=== PATIENT | male | born 1945 | race Caucasian/White ===

== ENCOUNTER 2022-02-19 15:00 | Inpatient (IN) | payer MEDICARE, OTHER, SELFPAY ==
[2022-02-19 15:26] VITALS: BMI 26.5
[2022-02-19 16:30] VITALS: BP 116/65; PULSE 93; RESP 16; TEMP 36.5; O2SAT 94
[2022-02-19 17:10] LABS: Bedside Glucose 122 mg/dL (74-106)
[2022-02-19 19:26] VITALS: BP 116/65; PULSE 93; RESP 16; TEMP 36.3; O2SAT 94
[2022-02-19 21:00] VITALS: PULSE 93; RESP 16; O2SAT 94; BMI 26.5
--- NOTE | 2022-02-19 21:09 | HP.PCM_ITS ---
[facility] - General General Date of Admission: 02/19/22 Date of Service: 02/19/22 Chief Complaint: Here for [address] [facility] Narrative 02/07/2022 MIRI REES, is a 76 Male admitted to Neuro ICU at [facility] for left MCA stroke. Transferred from [facility] with findings consistent with left MCA stroke. Patient has history of atrial fibrillation on Eliquis, but Eliquis was held for elective left shoulder replacement surgery. Postoperatively, patient developed right upper ad lower extremity weakness, facial droop, aphasia. CTA showed left cervical ICA occlusion with distal reconstitution, then re- occlusion at M2. Transferred to [facility] to consider mechanical thrombectomy. TNK (thrombolytic) given. Patient diaphoretic with ST elevation inferiorly on EKG. NIHSS 18, atrial flutter, EKG suggestive of late ID. Patient underwent thrombectomy, left ICA stent. Blood pressure controlled, Atorvastatin 80mg started, PT/OT/ST for left MCA stroke. Aspirin held due to TNK administration. 02/18/2022 No overnight issues. Patient on Plavix for left ICA stent, Patient on Eliquis for atrial fibrillation. 02/19/2022 Admit to for 3 hours daily PT/OT/ST for left MCA stroke. [facility] Medical History (Updated 02/19/22 @ 21:[address] Lucien Gramajo MD) Afib Cataract Diabetes History of skin cancer Hyperlipidemia Hypertension Stroke Home Medications acetaminophen 325 mg tablet (Tylenol) 650 mg PO Q4H PRN Pain 02/19/22 [History Last Taken Unknown] apixaban 5 mg tablet (Eliquis) 5 mg PO BID Check with primary doctor 02/19/22 [History Last Taken Unknown] atorvastatin 80 mg tablet 80 mg PO QHS cholesterol 02/19/22 [History Last Taken Unknown] clopidogrel 75 mg tablet (Plavix) 75 mg PO DAILY Check with primary doctor 02/19/22 [History Last Taken Unknown] metoprolol tartrate 50 mg tablet 50 mg PO Q12H BP 02/19/22 [History Last Taken Unknown] potassium chloride 25 mEq oral packet 40 meq PO DAILY Check with primary doctor 02/19/22 [History Last Taken Unknown] tamsulosin 0.4 mg capsule (Flomax) 0.4 mg PO DAILY retention 02/19/22 [History Last Taken 02/19/22 08:30] vit A 7,160 unit-vit C 113 mg-vit E 100 qisg-wrlh-mzcqyi tablet 1 tab PO DAILY Check with primary doctor 02/19/22 [History Last Taken Unknown] Allergy/AdvReac Type Severity Reaction Status Date / Time No Known Allergies Allergy Verified 02/19/22 15:43 Family History unable to obtain Surgical History (Updated 02/19/22 @ 21:[address] Lucien Gramajo MD) History of cataract surgery History of left shoulder replacement Social History (Updated 02/19/22 @ 21:[address] Lucien Gramajo MD) household members: none Smoking Status: Former smoker alcohol intake: current alcohol intake frequency: holidays/special occasions only substance use type: does not use ROS Constitutional Constitutional: Reports weakness; Denies chills, fever(s) or weight gain ENT HEENT: Denies headache(s), nasal congestion or nasal discharge Cardiovascular Cardiovascular: Denies chest pain or palpitations Respiratory/Chest Respiratory/Chest: Denies cough, excessive phlegm production or shortness of breath with exertion Gastrointestinal Gastrointestinal: Denies abdominal pain, nausea or vomiting Genitourinary Genitourinary: Denies dysuria Musculoskeletal Musculoskeletal: Denies joint pain or joint swelling Integumentary Integumentary: Denies rash or wounds Neurologic Neurologic: Reports weakness; Denies focal weakness, numbness or tingling Psychiatric Psychiatric: Denies anxiety, auditory hallucinations, depression, homicidal ideation or suicidal ideation Vital Signs Vital Signs Vital Signs: 02/19/22 16:30 02/19/22 19:26 Temperature 97.7 F L 97.4 F L Temperature Source Temporal Oral Pulse Rate 93 93 Respiratory Rate 16 16 Blood Pressure 116/65 116/65 Blood Pressure Mean 82 82 Blood Pressure Source Monitor Monitor Blood Pressure Position Semi-Fowlers Semi-Fowlers Blood Pressure Location Right Arm Right Arm Pulse Ox 94 94 Oxygen Delivery Method Room Air Room Air Weight Weight: 83.8 kg Body Mass Index (BMI) 26.5 Indicators for Scoring Admitted with or Primary Diagnosis of CVA/Stroke: Yes Hx of CVA/Stroke: Yes Modified [place] Score MRS Score at time of Evaluation: 4-Moderate/severe disability NIHSS NIHSS 1a. Level of Consciousness: Alert; keenly responsive 1b. LOC Questions: Answers neither question correctly. 1c. LOC Commands: Performs both tasks correctly. 2. Best Gaze: Normal 3. Visual: No visual loss 4. Facial Palsy: Partial paralysis (total or near-total paralysis of lower face) 5a. Left Arm: No effort against gravity; arm falls 5b. Right Arm: No movement 6a. Left Leg: No drift; leg holds 30-degree position for full 5 seconds 6b. Right Leg: No movement 7. Limb Ataxia: Absent 8. Sensory: Ejek-md-[id number] sensory loss; 9. Best Language: Vxxz-ks-afyinljj aphasia; 10. Dysarthria: Wjph-dm-klaxvtdg dysarthria; 11. Extinction and Inattention: No abnormality Total: 18 Stroke Questions Stroke Team Activated: Yes a.Reviewed Inclusion/Exclusion criteria: Yes IV TPA Administered: Yes No contraindications for IV Alteplase (t-PA) administration.: Yes Risks, Benefits, Alternatives Discussed: Yes Not given: Patient refusal: No Physical Exam Const alert General Appearance: cooperative HEENT normocephalic Eyes PERRL and EOMs intact bilaterally Neck supple, no JVD and no carotid bruits Resp normal respiratory effort, normal air movement and clear to auscultation bilaterally Cardio regular rate and regular rhythm GI normal to inspection, nondistended, normoactive bowel sounds, non-tender and non-distended Extremity normal capillary refill General Extremity: Negative for edema Skin no rashes or lesions noted Skin Narrative: Left anterior shoulder incision dressed with Mepilex. General Skin Exam: no breakdown Neuro Neuro Narrative: Dense right hemiplegia, left upper extremity weakness. Psych affect normal Appearance: appropriate Results Lab / Micro Data Labs: Laboratory Results - last 24 hr 02/19/22 16:34: POC Glucose 122 H Assessment & Plan Assessment/Plan (1) Debility: (2) Stenosis of left internal carotid artery: (3) Acute ischemic left MCA stroke: (4) Right hemiplegia: (5) Atrial fibrillation: (6) History of left shoulder replacement: (7) Hypertension: (8) Hyperlipidemia: (9) History of left common carotid artery stent placement: PLAN: Plan 76 year old male with below past medical history hospitalized for left shoulder replacement, suffered left MCA stroke, status post thrombolytic (TNK), thrombectomy, left ICA stent, admitted to [facility] for 3 hours daily rehabilitation, strengthening, prior to disposition determination. * Debility - PT/OT. * Dysarthria - ST. * Pain - Tylenol 650mg q4h prn pain (1-10). * Bowel - senna/colace 2 tablets bid, Dulcolax 10mg pr x 1 prn, MOM 30ml po x 1 prn. * Atrial fibrillation - Metoprolol 50mg q12, Eliquis 5mg bid. * Hyperlipidemia - Atorvastatin 80mg qhs. * Stroke/left carotid stenosis s/p stent - Plavix 75mg daily. * Diabetes Mellitus II - Lispro sliding scale insulin. * BPH - Tamsulosin 0.4mg daily.
[2022-02-19] MEDS: APIXABAN 5 MG TABLET PO (21:25)
[2022-02-19] MEDS: Senna/Docusate Sodium 1 Tablet 2 TABLET PO (21:25)
[2022-02-19] MEDS: Atorvastatin Calcium 80 MG Tablet PO (21:25)
[2022-02-19 21:26] VITALS: BP 116/65; PULSE 93
[2022-02-19] MEDS: Metoprolol Tartrate 50 MG Tablet PO (21:26)
[2022-02-19 22:25] LABS: Bedside Glucose 102 mg/dL (74-106)
[2022-02-20 05:42] LABS: Absolute Lymphocyte Count 0.95 X10^3/uL (0.83-4.51); Absolute Neutrophil Count 5.6 X10^3/uL (2.0-7.7); Basophil# 0.03 X10^3/uL; Basophil% 0.4 % (0-1); Eosinophil# 0.23 X10^3/uL; Eosinophils% 3.1 % (0-5); Hematocrit 29.5 % (40-54); Hemoglobin 9.3 g/dL (13.0-16.5); Lymphocyte # 0.95 X10^3/ul (0.83-4.51); Lymphocyte % 12.8 % (19-41); Mean Corp Hgb Conc 31.5 g/dL (32-36); Mean Corpuscular Volume 95.2 fL (80-94); Mean Platelet Vol. 10.1 fl (6.2-12.0); Monocyte# 0.53 X10^3/uL; Monocyte% 7.1 % (0-10); NRBC Flagged by Analyzer 0 % (0-5); Neutrophil # 5.64 X10^3/uL (2.7-7.7); Neutrophil % 75.7 % (47-70); Platelet Count 364 K/mm3 (150-450); RBC Distribution Width CV 14.7 % (11.6-14.6); RBC Distribution Width SD 50.1 fl (35.1-43.9); White Blood Count 7.5 K/mm3 (4.4-11.0)
[2022-02-20 06:09] LABS: ALB/GLOB Ratio 0.5 RATIO (0.9-2.4); AST(SGOT) 29 U/L (15-37); Alanine Aminotransfer ALT/SGPT 33 U/L (16-61); Alkaline Phosphatase 80 U/L (45-117); Anion Gap 7 (5-15); BUN 17 mg/dL (7-18); BUN/Creat Ratio 22.7 RATIO (10-20); Calcium,Total 8.5 mg/dL (8.5-10.1); Chloride 108 mmol/L (98-107); Creatinine, Serum 0.75 mg/dL (0.70-1.30); EST Glomerular Filtration Rate 107 mL/min (>60); Est Glom Filt Rate - Afr Amer 130 mL/min (>60); Estimated Creatinine Clearance 62.86 ml/min; Globulin 3.8 g/dL (2.2-4.2); Glucose 100 mg/dL (74-106); Magnesium 1.9 mg/dL (1.6-2.6); Phosphorus 3.2 mg/dL (2.5-4.9); Potassium 4.1 mmol/L (3.5-5.1); Protein, Total 5.8 g/dL (6.4-8.2); Sodium Level 138 mmol/L (136-145)
[2022-02-20 06:40] LABS: Bedside Glucose 99 mg/dL (74-106)
[2022-02-20 08:18] VITALS: BP 134/62; PULSE 97
[2022-02-20] MEDS: Metoprolol Tartrate 50 MG Tablet PO ×2 (08:18→21:49)
[2022-02-20] MEDS: Clopidogrel Bisulfate 75 MG Tablet PO (08:18)
[2022-02-20] MEDS: Tamsulosin HCl 0.4 MG Capsule PO (08:18)
[2022-02-20] MEDS: APIXABAN 5 MG TABLET PO ×2 (08:19→21:49)
[2022-02-20] MEDS: Menthol/Lanolin/Calamine/Znox 113 GM Tube 1 APPLIC TOPICAL ×2 (08:19→21:50)
[2022-02-20] MEDS: Senna/Docusate Sodium 1 Tablet 2 TABLET PO ×2 (08:19→21:49)
--- NOTE | 2022-02-20 09:35 | RAD_ITS ---
STUDY: X-RAY CHEST REASON FOR EXAM: Male, 76 years old. Moist cough. TECHNIQUE: PA and lateral views of the chest. COMPARISON: None. FINDINGS: Mild increased markings at the lung bases slightly more prominent on the right side suggestive of atelectasis. There is no demonstrated pleural abnormality. Normal size heart. Normal mediastinum and jose cruz. Normal visualized pulmonary arteries. Normal visualized aortic arch and descending thoracic aorta. Normal visualized thoracic spine. Status post left total shoulder replacement. There is no demonstrated abnormality of the visualized soft tissue structures of the upper abdomen. RAD/Chest PA and Lateral IMPRESSION: Mild degree of increased markings at the left lung base. Status post left shoulder replacement. Electronically Signed: Cleveland Garcia MD at 14:50 EDT ,
[2022-02-20 10:00] VITALS: BP 134/62; PULSE 94; RESP 15; RESP 18; TEMP 36; O2SAT 95
[2022-02-20 10:15] VITALS: BMI 26.5
--- NOTE | 2022-02-20 10:36 | PN_ITS ---
Subjective Subjective Patient seen, examined. OT notes patient is pocketing his food. Overnight has moist cough, Chest X-ray ordered, I read as negative, but will wait for radiology interpretation. He has no new problems, concerns. He has brace for left arm, recommend he wear brace. Objective Data Objective Data Vital Signs: Vital Signs Temp Pulse Resp BP Pulse Ox O2 Del Method 96.8 F L 94 15 134/62 H 95 Room Air 02/20/22 10:00 02/20/22 10:00 02/20/22 10:00 02/20/22 10:00 02/20/22 10:00 02/20/22 10:00 Oxygen Delivery Method Room Air Weight: 83.8 kg Body Mass Index (BMI) 26.5 Intake & Output: Intake and Output for Last 24 Hours 02/18/22 02/19/22 02/20/22 23:59 23:59 23:59 Intake Total 400 / 400 Balance 400 / 400 Lab / Micro Data Result Diagrams: 02/20/22 05:31 02/20/22 05:31 Labs: Laboratory Results - last 24 hr 02/19/22 16:34: POC Glucose 122 H 02/19/22 21:29: POC Glucose 102 02/20/22 05:31: WBC 7.5, RBC 3.10 L, Hgb 9.3 L, Hct 29.5 L, MCV 95.2 H, MCH 30 .0, MCHC 31.5 L, RDW Std Deviation 50.1 H, RDW Coeff of Juan 14.7 H, Plt Count 364, MPV 10.1, Immature Gran % (Auto) 0.900, Neut % (Auto) 75.7 H, Lymph % (Auto) 12.8 L, [place] % (Auto) 7.1, Eos % (Auto) 3.1, Baso % (Auto) 0.4, Absolute Neuts (auto) 5.6, Absolute Lymphs (auto) 0.95, Nucleated RBC % 0 02/20/22 05:31: Sodium 138, Potassium 4.1, Chloride 108 H, Carbon Dioxide 23.0, Anion Gap 7, BUN 17, Creatinine 0.75, Estim Creat Clear Calc 62.86, Est GFR (MDRD) Af Amer 130, Est GFR (MDRD) Non-Af 107, BUN/Creatinine Ratio 22.7 H, Glucose 100, Calcium 8.5, Phosphorus 3.2, Magnesium 1.9, Total Bilirubin 0.70, AST 29, ALT 33, Alkaline Phosphatase 80, Total Protein 5.8 L, Albumin 2.0 L, Globulin 3.8, Albumin/Globulin Ratio 0.5 L 02/20/22 06:19: POC Glucose 99 Physical Exam Const alert General Appearance: cooperative HEENT normocephalic Eyes PERRL and EOMs intact bilaterally Neck supple, no JVD and no carotid bruits Resp normal respiratory effort, normal air movement and clear to auscultation bilaterally Cardio regular rate and regular rhythm GI normal to inspection, nondistended, normoactive bowel sounds, non-tender and non-distended Extremity normal capillary refill General Extremity: Negative for edema Skin no rashes or lesions noted Skin Narrative: Left anterior shoulder incision dressed with Mepilex. General Skin Exam: no breakdown Neuro Neuro Narrative: Dense right hemiplegia, left upper extremity weakness. Psych affect normal Appearance: appropriate Assessment & Plan Assessment/Plan (1) Debility: (2) Stenosis of left internal carotid artery: (3) Acute ischemic left MCA stroke: (4) Right hemiplegia: (5) Atrial fibrillation: (6) History of left shoulder replacement: (7) Hypertension: (8) Hyperlipidemia: (9) History of left common carotid artery stent placement: PLAN: Plan 76 year old male with below past medical history hospitalized for left shoulder replacement, suffered left MCA stroke, status post thrombolytic (TNK), thrombectomy, left ICA stent, admitted to [facility] for 3 hours daily rehabilitation, strengthening, prior to disposition determination. * Debility - PT/OT. * Dysarthria - ST. * Pain - Tylenol 650mg q4h prn pain (1-10). * Bowel - senna/colace 2 tablets bid, Dulcolax 10mg pr x 1 prn, MOM 30ml po x 1 prn. * Atrial fibrillation - Metoprolol 50mg q12, Eliquis 5mg bid. * Hyperlipidemia - Atorvastatin 80mg qhs. * Stroke/left carotid stenosis s/p stent - Plavix 75mg daily. * Diabetes Mellitus II - Lispro sliding scale insulin. * BPH - Tamsulosin 0.4mg daily. * Cough - Chest X-ray done, final results pending. Capacity Capacity Assessment Tool Can the patient make a choice & communicate that choice?: Yes Can the patient understand benefits, risks and alternatives?: Yes Can the patient make a logical, rational choice?: Yes Is the choice the patient makes consistent w/ their values?: Yes Is there an impending, emergent risk to the patient?: No Does the patient have an Advance Directive?: Yes Is there a Surrogate Available?: Yes i.e. HCPOA: Yes i.e. close relative (spouse, child, parent, sibling)?: Yes
[2022-02-20 11:55] LABS: Bedside Glucose 108 mg/dL (74-106)
--- NOTE | 2022-02-20 12:49 | NURSING ---
Contacted Dr. Clemente's office (Orthopedics) per Kerri the doctor is in surgery all day and will respond to questions tomorrow. This nurse requested info for when surgical dressing can be removed, when sutures/dexter can be removed and what therapy is allowed. Also clarifying if sling should be on at all times. Their direct contact number is [phone]
[2022-02-20 17:25] LABS: Bedside Glucose 102 mg/dL (74-106)
--- NOTE | 2022-02-20 19:15 | REHABEVAL_ITS ---
Admission Information Primary Diagnosis:: Acute left MCA stroke. Status Changes from Prescreening?: No changes Identified Actual Problem List:: Falls, Pain, ALteration in Cmfrt, Cognitve Impr/Memory Loss, Alteration in Nutrition, Mobility Impaired, Self Care Deficit, Ineffective Communication, Know.Dfct/Disease Process and BP, Hypertension Potential Problem List:: DVT, Bleeding, Infection, UTI, Aspiration, Falls, Skin Integrity and Depression Risk of Complications DVT: - (Eliquis.) Bleeding: Monitor Lab Values, Nursing to Teach Precautions for anti-coagulation therapy. and Stroke patients assessed for lethargy or change in status. Infection: Clinical Staff to Monitor for S/S of infection: and S/S of infection include fever, redness, warmth, etc. Urinary Tract Infection: Monitor for frequency, burning, discomfort, or incontinence. Aspiration: Clinical staff will monitor for coughing, drooling, congestion., Speech will evaluate swallowing and dsyphasia. and Nursing will monitor patient swallowing during meals. Falls: Patient will be evaluated for Fall Precautions and Patient will be placed on Fall Precautions as indicated per protocol. Skin Breakdown: Nursing will assess skin daily using assessment tool. and Nursing will place on Skin Breakdown Precautions as indicated. Pain: Clinical staff will assess patient's pain level per protocol., Medications will be given, if needed, and the pain level reassessed. and Other methods: Massage, distraction, decrease stimulus, etc. used PRN. Plan of Care Patient requires physician specializing in physical medicine and rehab oversight to provide close medical supervision of rehab issues including: Pain Management, Sleep Problems, Bowel and Bladder, Medical and co-morbidity Management, DVT prophylaxis, Rehabilitation Leadership and Coordination of treatment team Patient needs Physical Therapy: For a minimum of 1 hour and At least 5 out of 7 days Patient needs Physical Therapy to improve:: Mobility, Strengthening, Transfers, Stretching, ROM, Endurance, Stairs, Gait and Balance Patient needs Occupational Therapy: For a minimum of 1 hour and At least 5 out of 7 days Patient needs Occupational Therapy to improve ADL's incl.: Eating, Grooming, Bathing, Dressing, Toileting, Toilet transfers, Higher functioning activities, Household tasks, Adaptive Equipment and Other activities as determined Patient requires speech therapy: For a minimum of 1 hour and At least 5 out of 7 days Patient requires speech therapy for: Swallowing, Cognition, Language Skills and Compensatory Strategies Patient requires 24/ Rehabilitation Nursing for: Pain Issues, Identifying and preventing risk factors, Monitoring and reporting current medical conditions, Assisting with ambulation, transfer, and all ADL's, Teaching patients about disease process and medications, Family teaching, Providing safe environment, Bowel and Bladder Issues, Skin integrity and Medication Management Patient needs Bridge/Structure Inspection Team Leader/ Case Management for: Discharge Planning, Arranging Home Equipment or Services and Family Interventions Patient needs Dietary and Nutrition Services for: Adequate Nutrition, Nutritional Supplements and Nutritional Education Goals Patient will remain: free from falls and or injury at time of discharge. Patient will perform bed mobility at: MOD I level of assist. Patient will complete transfers from bed to chair at: MOD I level of assist. Patient will ambulate: - (20 feet Raul x 1.) Patient will complete upper body dressing at: MOD I level of assist. Patient will complete lower body dressing at: MOD I level of assist. Patient will complete toileting at: MOD I level of assist. Patient will perform bathing at: MOD I level of assist. Patient will complete grooming at: MOD I level of assist. Patient will complete home management skills at: MOD I level of assist. Patient will achieve: - (2 steps Raul x 1.) Patient will have pain level of: of 3 or less Patient's skin will: remain intact and free from infection. Patient will receive: adequate nutrition. Discharge Planning Pt Prognosis for Sig. Practical Improv. w/in Reasonable Time: Fair Estimated Length of stay (days): 21 Anticipated D/C Destination: [facility] Was Preadmission Assessment Accurate?: Yes
[2022-02-20 19:26] VITALS: BP 117/67; PULSE 85; RESP 16; TEMP 36.3; O2SAT 100
[2022-02-20 21:35] VITALS: PULSE 85; RESP 16; O2SAT 100; BMI 26.5
[2022-02-20 21:49] VITALS: BP 117/67; PULSE 85
[2022-02-20] MEDS: Atorvastatin Calcium 80 MG Tablet PO (21:49)
[2022-02-20 23:31] LABS: Bedside Glucose 127 mg/dL (74-106)
--- NOTE | 2022-02-21 02:04 | NURSING ---
Reviewed and agree with Eugenia MARKHAM, documentation and assessment charting.
[2022-02-21 07:10] LABS: Bedside Glucose 104 mg/dL (74-106)
[2022-02-21 07:25] VITALS: BP 97/55; PULSE 64; RESP 15; TEMP 35.9; O2SAT 95
[2022-02-21] MEDS: Tamsulosin HCl 0.4 MG Capsule PO (09:51)
[2022-02-21] MEDS: APIXABAN 5 MG TABLET PO ×2 (09:51→21:53)
[2022-02-21] MEDS: Clopidogrel Bisulfate 75 MG Tablet PO (09:51)
[2022-02-21 09:52] VITALS: PULSE 88
[2022-02-21] MEDS: Senna/Docusate Sodium 1 Tablet 2 TABLET PO (09:52)
[2022-02-21] MEDS: Metoprolol Tartrate 50 MG Tablet PO ×2 (09:52→21:54)
[2022-02-21] MEDS: Menthol/Lanolin/Calamine/Znox 113 GM Tube 1 APPLIC TOPICAL ×2 (09:56→21:53)
--- NOTE | 2022-02-21 10:51 | CASEMGMT ---
Social Work IDT met with patient and niece via conference call for Team meeting. Discussed patient's progress in PT/OT/ST/SN. Educated to Medicare approval of 23 days with DC 03/14. Pt is x2-3 assist, total feed and total ADL assistance. Family and IDT agreeable pt will need SNF at DC. SW to contact niece after Team to discuss coverage and options. Will ReTeam next week. SW spoke with niece. Educated to Medicare coverage for SNF stay. Encouraged to contact secondary insurance to ensure copay coverage. Niece inquired about long-term care insurance. Educated to the reimbursement process. SW emailed SNF list to [facility]itan[facility] to review providers including quality and resource data via [employer]. Niece explained pt's history. See SW assessment for further details. Niece and pt unsure if pt has advanced directives. Niece to look into finding those documents and getting access to pt's finances to assist with bills. Niece very appreciative of time and assistance. SW to continue to follow. Liza Oneal, MANAGER OF CREATIVE SERVICES ATTORNEY LAW CLERK
[2022-02-21 11:40] VITALS: BMI 26.5
[2022-02-21 11:40] LABS: Bedside Glucose 123 mg/dL (74-106)
--- NOTE | 2022-02-21 12:50 | NURSING ---
Per STATION INSTALLER AND REPAIRER, patient had a few bites of food at lunch and started choking on meat. Speech Therapy performed oral suction. Patient is in no distress but copius secretions are coming out of patients mouth that are clear and phlegm like and patient feels like the food bolus is still there and he cannot swallow anything down further. Dr. Gramajo aware, new order for Dr. Garcia to be consulted for possible removal of foreign mass. In the meantime, patient will be NPO. Patients lungs assessed and rubbing noted on expiration to lev upper lobes but otherwise clear.
--- NOTE | 2022-02-21 16:00 | NURSING ---
Friend here. Patient currently denies anything feeling like it is stuck in the throat and no choking or phlegm coming back up as did before. Patient was able to swallow nectar thick liquid ok and will start puree nectar thick diet and have MBS tomorrow per orders. Niece had been made aware
[2022-02-21 16:55] LABS: Bedside Glucose 108 mg/dL (74-106)
--- NOTE | 2022-02-21 19:02 | CON.PCM_ITS ---
Assessment & Plan Assessment/Plan (1) Dysphagia: PLAN: I recommend a repeat swallow evaluation. It is a possibility day he has cricopharyngeal achalasia, esophageal ring, erosive esophagitis, esophageal web causing esophageal dysphagia. Patient is actually doing okay at this time. Hopefully when he has a repeat swallowing eval he will be okay and not require upper endoscopy for further evaluation. HPI Consult Data Date of Consult: 02/21/22 HPI Narrative Reason for Consultation: dysphagia HPI Narrative: MIRI REES, is a 76 M who presents for acute rehab. He is a recent diagnosis of a left MCA stroke. He has a history atrial fibrillation on Eliquis therapy. He also has a history of recent left shoulder surgery. Patient was doing well until this morning. He attempted to eat a turkey sandwich and the food got stuck in the back of his throat. He was not able to handle his own secretions and I was called to evaluate the patient. Currently at this time he is not having any esophageal dysphagia and not having any problems with his secretions. [facility] Medical History (Updated 02/21/22 @ 19:[address] Blair Friend, DO) Afib Cataract Diabetes History of skin cancer Hyperlipidemia Hypertension Stroke Home Medications acetaminophen 325 mg tablet (Tylenol) 650 mg PO Q4H PRN Pain 02/19/22 [History Last Taken Unknown] apixaban 5 mg tablet (Eliquis) 5 mg PO BID Check with primary doctor 02/19/22 [History Last Taken Unknown] atorvastatin 80 mg tablet 80 mg PO QHS cholesterol 02/19/22 [History Last Taken Unknown] clopidogrel 75 mg tablet (Plavix) 75 mg PO DAILY Check with primary doctor 02/19/22 [History Last Taken Unknown] metoprolol tartrate 50 mg tablet 50 mg PO Q12H BP 02/19/22 [History Last Taken Unknown] potassium chloride 25 mEq oral packet 40 meq PO DAILY Check with primary doctor 02/19/22 [History Last Taken Unknown] tamsulosin 0.4 mg capsule (Flomax) 0.4 mg PO DAILY retention 02/19/22 [History Last Taken 02/19/22 08:30] vit A 7,160 unit-vit C 113 mg-vit E 100 vcok-ajyz-nspeam tablet 1 tab PO DAILY Check with primary doctor 02/19/22 [History Last Taken Unknown] Allergy/AdvReac Type Severity Reaction Status Date / Time No Known Allergies Allergy Verified 02/19/22 15:43 Family History unable to obtain Surgical History (Updated 02/19/22 @ 21:[address] Lucien Gramajo MD) History of cataract surgery History of left shoulder replacement Social History (Updated 02/19/22 @ 21:[address] Lucien Gramajo MD) household members: none Smoking Status: Former smoker alcohol intake: current alcohol intake frequency: holidays/special occasions only substance use type: does not use ROS Constitutional Constitutional: Reports weakness; Denies chills, fever(s) or weight gain ENT HEENT: Denies headache(s), nasal congestion or nasal discharge Cardiovascular Cardiovascular: Denies chest pain or palpitations Respiratory/Chest Respiratory/Chest: Denies cough, excessive phlegm production or shortness of breath with exertion Gastrointestinal Gastrointestinal: Denies abdominal pain, nausea or vomiting Genitourinary Genitourinary: Denies dysuria Musculoskeletal Musculoskeletal: Denies joint pain or joint swelling Integumentary Integumentary: Denies rash or wounds Neurologic Neurologic: Reports weakness; Denies focal weakness, numbness or tingling Psychiatric Psychiatric: Denies anxiety, auditory hallucinations, depression, homicidal ideation or suicidal ideation Physical Exam Const alert General Appearance: cooperative HEENT normocephalic Eyes PERRL and EOMs intact bilaterally Neck supple, no JVD and no carotid bruits Resp normal respiratory effort, normal air movement and clear to auscultation bilaterally Cardio regular rate and regular rhythm GI normal to inspection, nondistended, normoactive bowel sounds, non-tender and non-distended Extremity normal capillary refill General Extremity: Negative for edema Skin no rashes or lesions noted Skin Narrative: Left anterior shoulder incision dressed with Mepilex. General Skin Exam: no breakdown Neuro Neuro Narrative: Dense right hemiplegia, left upper extremity weakness. Psych affect normal Appearance: appropriate Lab / Micro Data Result Diagrams: 02/20/22 05:31 02/20/22 05:31 Labs: Laboratory Results - last 24 hr 02/20/22 21:47: POC Glucose 127 H 02/21/22 06:44: POC Glucose 104 02/21/22 11:14: POC Glucose 123 H 02/21/22 16:18: POC Glucose 108 H Charges/Coding Visit Charges Inpatient E&M: [id number] Init Hosp L2
[2022-02-21 19:11] VITALS: BP 121/57; PULSE 92; RESP 16; TEMP 36.4; O2SAT 96
--- NOTE | 2022-02-21 19:11 | PCM.PROGNOTE ---
Subjective Subjective Patient seen, examined on IDT rounds. He has made progress in therapy, but he was notified he will probably need a SNF after discharge from [facility]. After rounds, ST was working with patient, and noted he felt food was stuck in his distal esophagus. Dr. Garcia consulted, and patient condition had improved, recommended repeat swallowing study, if no improvement, then consider upper endoscopy. Objective Data Objective Data Vital Signs: Vital Signs Temp Pulse Resp BP Pulse Ox O2 Del Method 96.6 F L 88 15 97/55 L 95 Room Air 02/21/22 07:25 02/21/22 09:52 02/21/22 07:25 02/21/22 07:25 02/21/22 07:25 02/21/22 08:35 Oxygen Delivery Method Room Air Weight: 82.554 kg Body Mass Index (BMI) 26.5 Intake & Output: Intake and Output for Last 24 Hours 02/19/22 02/20/22 02/21/22 23:59 23:59 23:59 Intake Total 1630 / 1630 660 / 660 Output Total 900 / 900 Balance 730 / 730 660 / 660 Lab / Micro Data Result Diagrams: 02/20/22 05:31 02/20/22 05:31 Labs: Laboratory Results - last 24 hr 02/20/22 21:47: POC Glucose 127 H 02/21/22 06:44: POC Glucose 104 02/21/22 11:14: POC Glucose 123 H 02/21/22 16:18: POC Glucose 108 H Physical Exam Const alert General Appearance: cooperative HEENT normocephalic Eyes PERRL and EOMs intact bilaterally Neck supple, no JVD and no carotid bruits Resp normal respiratory effort, normal air movement and clear to auscultation bilaterally Cardio regular rate and regular rhythm GI normal to inspection, nondistended, normoactive bowel sounds, non-tender and non-distended Extremity normal capillary refill General Extremity: Negative for edema Skin no rashes or lesions noted Skin Narrative: Left anterior shoulder incision dressed with Mepilex. General Skin Exam: no breakdown Neuro Neuro Narrative: Dense right hemiplegia. Left arm weakness, shoulder brace in place. Psych affect normal Appearance: appropriate Assessment & Plan Assessment/Plan (1) Debility: (2) Stenosis of left internal carotid artery: (3) Acute ischemic left MCA stroke: (4) Right hemiplegia: (5) Atrial fibrillation: (6) History of left shoulder replacement: (7) Hypertension: (8) Hyperlipidemia: (9) History of left common carotid artery stent placement: PLAN: Plan 76 year old male with below past medical history hospitalized for left shoulder replacement, suffered left MCA stroke, status post thrombolytic (TNK), thrombectomy, left ICA stent, admitted to [facility] for 3 hours daily rehabilitation, strengthening, prior to disposition determination. Debility - PT/OT. Dysarthria - ST. Pain - Tylenol 650mg q4h prn pain (1-10). Bowel - senna/colace 2 tablets bid, Dulcolax 10mg pr x 1 prn, MOM 30ml po x 1 prn. Atrial fibrillation - Metoprolol 50mg q12, Eliquis 5mg bid. Hyperlipidemia - Atorvastatin 80mg qhs. Stroke/left carotid stenosis s/p stent - Plavix 75mg daily. Diabetes Mellitus II - Lispro sliding scale insulin. BPH - Tamsulosin 0.4mg daily. Cough - Chest X-ray showed atelectasis, IS encouraged. Dysphagia - Dr. Garcia recommended repeat swallowing study, EGD if no improvement. Capacity Capacity Assessment Tool Can the patient make a choice & communicate that choice?: Yes Can the patient understand benefits, risks and alternatives?: Yes Can the patient make a logical, rational choice?: Yes Is the choice the patient makes consistent w/ their values?: Yes Is there an impending, emergent risk to the patient?: No Does the patient have an Advance Directive?: Yes Is there a Surrogate Available?: Yes i.e. HCPOA: Yes i.e. close relative (spouse, child, parent, sibling)?: Yes
[2022-02-21 21:50] VITALS: BP 106/56; PULSE 92
[2022-02-21 21:54] VITALS: BP 106/56; PULSE 92
[2022-02-21] MEDS: Atorvastatin Calcium 80 MG Tablet PO (21:57)
[2022-02-21 22:05] LABS: Bedside Glucose 104 mg/dL (74-106)
[2022-02-22 07:20] LABS: Bedside Glucose 92 mg/dL (74-106)
[2022-02-22 08:00] VITALS: BP 111/63; PULSE 94; RESP 18; TEMP 36.6; O2SAT 94
[2022-02-22 08:51] VITALS: PULSE 95
[2022-02-22] MEDS: Metoprolol Tartrate 50 MG Tablet PO ×2 (08:51→22:28)
[2022-02-22] MEDS: APIXABAN 5 MG TABLET PO ×2 (08:51→22:29)
[2022-02-22] MEDS: Clopidogrel Bisulfate 75 MG Tablet PO (08:51)
[2022-02-22] MEDS: Tamsulosin HCl 0.4 MG Capsule PO (08:51)
[2022-02-22] MEDS: Menthol/Lanolin/Calamine/Znox 113 GM Tube 1 APPLIC TOPICAL ×2 (08:52→22:29)
[2022-02-22 11:20] LABS: Bedside Glucose 140 mg/dL (74-106)
--- NOTE | 2022-02-22 13:47 | PCM.PROGNOTE ---
Subjective Subjective Afebrile VSS-blood pressure is stable. Heart rate has been in the 90s for the past 2 days. Maintaining appropriate oxygen saturation on RA-94 to 96%. Oral intake is variable He is incontinent of urine and stool. Weight is down 6 pounds since 02/19/2022. Blood sugar record was reviewed and the blood sugars are well controlled with no hypoglycemia. He is on SSI at this time. He has had only 1 post void residual since admission and that was 0. 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 He ws on a soft diet and apparently aspirated meat a few days ago and was drooling. Reviewed the PT/OT/ST notes Medication list reviewed. Lab at admission was personally reviewed. White blood cell count and platelets were normal. Hemoglobin was low at 9.3. MCV is 95.2. Electrolytes were within normal limits, BUN was 17 with a creatinine of 0.75, mag and Phos were normal and the LFTs are normal. I reviewed the H&P done by Dr. Gramajo at admission. Jhonathan has a history of atrial fibrillation and recently had a left reverse total shoulder surgery. He was off Eliquis and subsequently had a left MCA stroke and was admitted to [facility]. CTA showed left cervical internal carotid artery occlusion with distal reconstitution then repeat occlusion at M2. He received TNK. At [facility] he underwent a left ICA thrombectomy and stent. Past medical history is significant for atrial fibrillation, diabetes mellitus type 2, hyperlipidemia, hypertension and a history of skin cancer. He also likely has BPH as he is on tamsulosin. Dr. Garcia was consulted from GI and the patient was doing okay at the time of his visit. He did not feel endoscopy was required but did recommend a repeat MBS. He was transition to a pur?ed diet. Jhonathan tells me that he is sleeping well and eating good. He denies chest pain, shortness of breath, cough, cephalgia, nausea/vomiting/abdominal pain, dysuria, constipation and calf pain. When he is in occupational therapy and moving the left shoulder he does have pain. He has Tylenol ordered but has not had any since admission. There are no other pain medications ordered. He has urinary incontinence which is new but this is most likely secondary to the recent stroke. He has a flaccid RUE but, he does have flexion of the RLE at the hip......but, no extension yet. Objective Data Objective Data Vital Signs: Vital Signs Temp Pulse Resp BP Pulse Ox O2 Del Method 97.8 F 95 18 111/63 94 Room Air 02/22/22 08:00 02/22/22 08:51 02/22/22 08:00 02/22/22 08:00 02/22/22 08:00 02/22/22 12:32 Oxygen Delivery Method Room Air Weight: 178 lb 5.663 oz Body Mass Index (BMI) 26.5 Intake & Output: Intake and Output for Last 24 Hours 02/20/22 02/21/22 02/22/22 23:59 23:59 23:59 Intake Total 1630 / 1630 660 / 660 800 / 800 Output Total 900 / 900 Balance 730 / 730 660 / 660 800 / 800 Lab / Micro Data Result Diagrams: 02/20/22 05:31 02/20/22 05:31 Labs: Laboratory Results - last 24 hr 02/21/22 16:18: POC Glucose 108 H 02/21/22 21:47: POC Glucose 104 02/22/22 06:36: POC Glucose 92 02/22/22 11:00: POC Glucose 140 H Physical Exam Const alert and no apparent distress Constitutional Narrative: Speech is slurred but, intelligible. He is appropriate. Pleasant, making good eye contact. General Appearance: cooperative HEENT moist oral mucous membranes HEENT Narrative: mild right facial droop Eyes PERRL and EOMs intact bilaterally Neck supple Resp normal respiratory effort and clear to auscultation bilaterally Resp Narrative: BS's are a little diminished throughout but, Inspiratory effort was decreased. No conversational dyspnea. Effort and Inspection: Negative for respiratory distress Cardio Cardio Narrative: irreg irreg with mildly increased resting heart rate. No MM, rub or gallop. Denies palpitations and lightheadedness. GI normal to inspection, nondistended, normoactive bowel sounds, soft to palpation and non-tender Extremity no calf tenderness Extremity Narrative: No edema Skin General Skin Exam: no breakdown Rashes: no rashes Assessment & Plan Assessment/Plan (1) Debility: (2) Acute ischemic left MCA stroke: PLAN: Likely embolic.....he was off Eliquis for L shoulder reverse arthroplasty. (3) Stenosis of left internal carotid artery: (4) History of left common carotid artery stent placement: (5) Atrial fibrillation: (6) Right hemiplegia: (7) Dysphagia: (8) Urinary incontinence: (9) Fecal incontinence: (10) Normochromic normocytic anemia: (11) Hyperlipidemia: (12) History of left shoulder replacement: (13) Hypertension: PLAN: 1. Continue therapy. He is making progress but, he lives alone and I suspect he will need SNF at [place] from rehab. 2. DC SSI........has not been requiring any insulin for past few days. 3. Continue PT/OT/ST 4. recheck HH in 1 week. 5. He is on Apixaban and Plavix. Will check a hemoccult stool in light of anemia.
[2022-02-22 14:18] VITALS: BMI 26.5
[2022-02-22 16:40] LABS: Bedside Glucose 125 mg/dL (74-106)
[2022-02-22 21:55] LABS: Bedside Glucose 120 mg/dL (74-106)
[2022-02-22 22:00] VITALS: BP 104/59; PULSE 90; RESP 16; TEMP 36.8; O2SAT 98
[2022-02-22 22:28] VITALS: BP 104/59; PULSE 90
[2022-02-22] MEDS: Atorvastatin Calcium 80 MG Tablet PO (22:28)
[2022-02-23 05:00] VITALS: BMI 26.5
[2022-02-23 07:10] LABS: Bedside Glucose 95 mg/dL (74-106)
[2022-02-23 07:20] VITALS: BP 141/54; PULSE 101; RESP 16; TEMP 36.3; O2SAT 94
[2022-02-23] MEDS: Menthol/Lanolin/Calamine/Znox 113 GM Tube 1 APPLIC TOPICAL ×2 (08:30→23:04)
[2022-02-23 11:04] VITALS: PULSE 92
[2022-02-23] MEDS: Tamsulosin HCl 0.4 MG Capsule PO (11:04)
[2022-02-23] MEDS: APIXABAN 5 MG TABLET PO ×2 (11:04→23:04)
[2022-02-23] MEDS: Metoprolol Tartrate 50 MG Tablet PO ×2 (11:04→23:04)
[2022-02-23] MEDS: Clopidogrel Bisulfate 75 MG Tablet PO (11:04)
[2022-02-23 12:36] LABS: Bedside Glucose 106 mg/dL (74-106)
[2022-02-23 14:23] VITALS: BMI 26.5
[2022-02-23 16:55] LABS: Bedside Glucose 118 mg/dL (74-106)
[2022-02-23 22:10] LABS: Bedside Glucose 109 mg/dL (74-106)
[2022-02-23 23:01] VITALS: BP 144/57; PULSE 98; RESP 18; TEMP 36.6; O2SAT 96
[2022-02-23 23:04] VITALS: PULSE 98
[2022-02-23] MEDS: Atorvastatin Calcium 80 MG Tablet PO (23:04)
[2022-02-24 05:00] VITALS: BMI 26.5
[2022-02-24 06:46] LABS: Bedside Glucose 104 mg/dL (74-106)
[2022-02-24 07:21] VITALS: BP 123/60; PULSE 90; RESP 16; TEMP 36.6; O2SAT 97
[2022-02-24] MEDS: Tamsulosin HCl 0.4 MG Capsule PO (09:08)
[2022-02-24] MEDS: Menthol/Lanolin/Calamine/Znox 113 GM Tube 1 APPLIC TOPICAL ×2 (09:08→21:39)
[2022-02-24] MEDS: APIXABAN 5 MG TABLET PO ×2 (09:08→21:38)
[2022-02-24 09:09] VITALS: PULSE 86
[2022-02-24] MEDS: Clopidogrel Bisulfate 75 MG Tablet PO (09:09)
[2022-02-24] MEDS: Metoprolol Tartrate 50 MG Tablet PO ×2 (09:09→21:38)
[2022-02-24 12:35] LABS: Bedside Glucose 118 mg/dL (74-106)
[2022-02-24 14:10] VITALS: BMI 26.5
[2022-02-24 17:40] LABS: Bedside Glucose 106 mg/dL (74-106)
[2022-02-24 19:57] VITALS: BP 109/55; PULSE 81; RESP 17; TEMP 36.1; O2SAT 98
[2022-02-24 21:33] VITALS: BP 126/77; PULSE 96
[2022-02-24 21:38] VITALS: BP 126/77; PULSE 96
[2022-02-24] MEDS: Atorvastatin Calcium 80 MG Tablet PO (21:38)
[2022-02-24 21:50] LABS: Bedside Glucose 117 mg/dL (74-106)
[2022-02-25 05:29] LABS: Hematocrit 30.6 % (40-54); Hemoglobin 9.6 g/dL (13.0-16.5)
[2022-02-25 07:26] LABS: Bedside Glucose 95 mg/dL (74-106)
[2022-02-25 07:44] VITALS: BP 142/79; PULSE 93
[2022-02-25] MEDS: Metoprolol Tartrate 50 MG Tablet PO ×2 (07:44→20:24)
[2022-02-25] MEDS: APIXABAN 5 MG TABLET PO ×2 (07:44→20:25)
[2022-02-25 07:45] VITALS: BP 103/73; PULSE 93; RESP 20; TEMP 37.2; O2SAT 96
[2022-02-25] MEDS: Menthol/Lanolin/Calamine/Znox 113 GM Tube 1 APPLIC TOPICAL ×2 (07:45→20:25)
[2022-02-25] MEDS: Tamsulosin HCl 0.4 MG Capsule PO (07:45)
[2022-02-25] MEDS: Clopidogrel Bisulfate 75 MG Tablet PO (07:45)
[2022-02-25 11:04] VITALS: BMI 26.5
[2022-02-25 11:30] LABS: Bedside Glucose 109 mg/dL (74-106)
--- NOTE | 2022-02-25 15:24 | PN_ITS ---
Subjective Subjective Afebrile VSS Maintaining appropriate oxygen saturation on RA Oral intake is adequate The blood sugar record was reviewed. Blood sugars are currently controlled on diet alone. Will discontinue lispro and also discontinue Accu-Cheks. Remains incontinent of both stool and urine. Discussed with nursing - no problems that need addressed Reviewed the PT/OT/ST notes Medication list reviewed. All lab was personally reviewed. Hemoglobin is stable at 9.6. Jhonathan is c/o some soreness around the rectum. He denies CP, shortness of breath, palpitations, lightheadedness, dysuria, nausea, vomiting, diarrhea. He feels stiff today because he was in bed most of the day yesterday. Objective Data Objective Data Vital Signs: Vital Signs Temp Pulse Resp BP Pulse Ox O2 Del Method 99.0 F 93 20 H 103/73 96 Room Air 02/25/22 07:45 02/25/22 07:45 02/25/22 07:45 02/25/22 07:45 02/25/22 07:45 02/25/22 07:45 Oxygen Delivery Method Room Air Weight: 177 lb 4.026 oz Body Mass Index (BMI) 26.5 Intake & Output: Intake and Output for Last 24 Hours 02/23/22 02/24/22 02/25/22 23:59 23:59 23:59 Intake Total 1180 / 1180 1160 / 1160 480 / 480 Output Total 500 / 500 Balance 680 / 680 1160 / 1160 480 / 480 Lab / Micro Data Result Diagrams: 02/25/22 04:51 02/20/22 05:31 Labs: Laboratory Results - last 24 hr 02/24/22 17:19: POC Glucose 106 02/24/22 21:17: POC Glucose 117 H 02/25/22 04:51: Hgb 9.6 L, Hct 30.6 L 02/25/22 06:50: POC Glucose 95 02/25/22 11:06: POC Glucose 109 H Micro: Microbiology 02/23/22 11:55 Stool Stool Occult Blood (DAVID) - Final Physical Exam Const alert and oriented x3 General Appearance: cooperative Neck General: trachea midline; Negative for lymphadenopathy Resp normal respiratory effort, normal air movement and clear to auscultation bilaterally Cardio Cardio Narrative: He remains in AF with a resting HR in the 90's. No gallop. GI normal to inspection, nondistended, normoactive bowel sounds, soft to palpation and non-tender GI Narrative: The danny-rectal area is erythematous and shiny. The underside of the scrotum is also reddened. There are no openings in the skin. I suspect the irritation is related to incontinence rather than pressure.....the erythema is limited to the danny-rectal area and the gluteal cleft. No satellite lesions so doubt fungal infection. Extremity no calf tenderness General Extremity: Negative for edema Skin General Skin Exam: no breakdown Rashes: no rashes Psych thought process normal and cooperative Psych Narrative: seems a little down today. Not as talkative and speaking softly. Assessment & Plan Assessment/Plan (1) Debility: PLAN: Continue PT/OT/ST. (2) Acute ischemic left MCA stroke: (3) Stenosis of left internal carotid artery: (4) History of left common carotid artery stent placement: (5) Atrial fibrillation: PLAN: Continue apixaban 5 mg p.o. every 12 hours. (6) Fecal incontinence: (7) Urinary incontinence: (8) Diaper dermatitis: PLAN: [place] use of Calmoseptine with each diaper change. PLAN: Plan Address depression with him and discuss starting an antidepressant. He is a very independent man and now is having to be fed his meals and is incontinent of both stool and urine. His life has changed dramatically and he will more likely than not need a SNF at [place]. TX the Lispro and the Accuchecks. Charges/Coding Visit Charges Inpatient E&M: 65001 Subs Hosp L2
[2022-02-25 16:40] LABS: Bedside Glucose 98 mg/dL (74-106)
[2022-02-25 19:26] VITALS: BP 102/55; PULSE 85; RESP 18; TEMP 36.7; O2SAT 96
[2022-02-25 20:24] VITALS: BP 102/55; PULSE 85
[2022-02-25] MEDS: Atorvastatin Calcium 80 MG Tablet PO (20:25)
[2022-02-26 07:46] VITALS: BP 113/70; PULSE 98; RESP 20; TEMP 36.5; O2SAT 97
[2022-02-26] MEDS: Menthol/Lanolin/Calamine/Znox 113 GM Tube 1 APPLIC TOPICAL ×2 (07:51→22:58)
[2022-02-26 07:54] VITALS: PULSE 98
[2022-02-26] MEDS: Metoprolol Tartrate 50 MG Tablet PO ×2 (07:54→22:58)
[2022-02-26] MEDS: dilTIAZem CD 120 MG Capsule PO (07:56)
[2022-02-26] MEDS: APIXABAN 5 MG TABLET PO ×2 (07:56→22:58)
[2022-02-26] MEDS: Clopidogrel Bisulfate 75 MG Tablet PO (07:57)
[2022-02-26] MEDS: Tamsulosin HCl 0.4 MG Capsule PO (07:59)
--- NOTE | 2022-02-26 09:32 | PN_ITS ---
Subjective Subjective Afebrile VSS-heart rate is in the 90s at rest but, he will receive his first dose of Cardizem today at 10 AM. Maintaining appropriate oxygen saturation on RA Oral intake is good. Discussed with nursing - no problems that need addressed Reviewed the PT/OT/ST notes Medication list reviewed. He denies feeling depressed. He is often napping but he is tired from doing therapy. He had his modified barium swallow today and I discussed the results with the speech therapist. 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 Jhonathan denies chest pain, shortness of breath, cephalgia, lightheadedness, nausea/vomiting/abdominal pain, painful urination and constipation. We discussed the sx of depression and he denies having the sx and feeling depressed. Objective Data Objective Data Vital Signs: Vital Signs Temp Pulse Resp BP Pulse Ox O2 Del Method 97.7 F L 98 20 H 113/70 97 Room Air 02/26/22 07:46 02/26/22 07:54 02/26/22 07:46 02/26/22 07:46 02/26/22 07:46 02/25/22 19:26 Oxygen Delivery Method Room Air Weight: 177 lb 4.026 oz Body Mass Index (BMI) 26.5 Intake & Output: Intake and Output for Last 24 Hours 02/24/22 02/25/22 02/26/22 23:59 23:59 23:59 Intake Total 1160 / 1160 1400 / 1400 Balance 1160 / 1160 1400 / 1400 Lab / Micro Data Result Diagrams: 02/25/22 04:51 02/20/22 05:31 Labs: Laboratory Results - last 24 hr 02/25/22 11:06: POC Glucose 109 H 02/25/22 16:17: POC Glucose 98 Micro: Microbiology 02/23/22 11:55 Stool Stool Occult Blood (DAVID) - Final Physical Exam Const alert, oriented x3 and no apparent distress Constitutional Narrative: Speech is slurred but, intelligible most of the time. He is appropriate. Pleasant, making good eye contact. General Appearance: cooperative HEENT moist oral mucous membranes Eyes PERRL and EOMs intact bilaterally Resp normal respiratory effort and normal air movement Resp Narrative: no labored breathing and denies SOB. No cough. Has few coarse crackles in the R base. No wheezes. Not tachypneic. Effort and Inspection: Negative for respiratory distress Cardio Cardio Narrative: He remains in AF with a resting HR in the 90's. No gallop. GI normal to inspection, nondistended, normoactive bowel sounds, soft to palpation and non-tender GI Narrative: The danny-rectal area is erythematous and shiny. The underside of the scrotum is also reddened. There are no openings in the skin. I suspect the irritation is related to incontinence rather than pressure.....the erythema is limited to the danny-rectal area and the gluteal cleft. No satellite lesions so doubt fungal infection. Extremity no calf tenderness Extremity Narrative: No edema General Extremity: Negative for edema Skin General Skin Exam: no breakdown Rashes: no rashes Psych thought process normal and cooperative Psych Narrative: seems a little down today. Not as talkative and speaking softly. Assessment & Plan Assessment/Plan (1) Debility: (2) Acute ischemic left MCA stroke: (3) Dysphagia: (4) Right hemiplegia: (5) Atrial fibrillation: (6) Fecal incontinence: (7) Urinary incontinence: (8) Normochromic normocytic anemia: (9) Diaper dermatitis: (10) Esophageal obstruction: PLAN: Plan 1. Continue therapy 2. Discussed with Dr. Garcia the esophageal obstruction and he will look at the films. Will likely need an EGD. 3. Continue to monitor the heart rate with recent addition of Cardizem to better control the resting heart rate. 4. Continue to monitor for signs of depression 5. Keep the patient on pur?ed foods until he is seen by Dr. Garcia. 6. [place] application of Calmoseptine following every Depends change. Charges/Coding Visit Charges Inpatient E&M: 58157 Subs Hosp L2
--- NOTE | 2022-02-26 10:22 | ST.MBS ---
Modified Barium Swallow - Patient Information Study Date: 02/26/22 Study Time: 09:00 Direct Billable Minutes: 130 Total Minutes procedure & reportin Diagnosis: CVA/dysphagia Referring Physician: Johnnie Garcia Reason for Referral: Objective assessment of swallow function under fluoroscopy recommended d/t recent suspected esophageal retention/obstruction of meat bolus and for determination of the least restrictive diet and compensatory strategy recommendations. Medical History: MIRI REES, is a 76 Male w/ a PMHx of Afib, Cataract, Diabetes, History of skin cancer, Hyperlipidemia, Hypertension, Stroke, admitted to Neuro ICU at [facility] for left MCA stroke. Transferred from [facility] with findings consistent with left MCA stroke. Patient has history of atrial fibrillation on Eliquis, but Eliquis was held for elective left shoulder replacement surgery. Postoperatively, patient developed right upper ad lower extremity weakness, facial droop, aphasia. CTA showed left cervical ICA occlusion with distal reconstitution, then re-occlusion at M2. Transferred to [facility] to consider mechanical thrombectomy. TNK (thrombolytic) given. Patient diaphoretic with ST elevation inferiorly on EKG. NIHSS 18, atrial flutter, EKG suggestive of late WA. Patient underwent thrombectomy, left ICA stent. Blood pressure controlled, Atorvastatin 80mg started, PT/OT/ST for left MCA stroke. Aspirin held due to TNK administration. 02/18/2022 No overnight issues. Patient on Plavix for left ICA stent, Patient on Eliquis for atrial fibrillation. 02/19/2022 Admit to for 3 hours daily PT/OT/ST for left MCA stroke. 02/21/22 CHIMNEY MECHANIC was feeding patient noon meal and stopped to locate this [employer] d/t significant change in swallow function. Pt was consuming minced beef tips over noodles. Suspect pharyngoesophageal retention of meat at/near the PES. Trialed liquid wash, which resulted in increased gurgling and coughing. PO trials discontinued. Significant gurgling persisted w/ expectoration of food and copious thick secretions several times, requiring suctioning. Patient continues to report sensation of food stuck in his throat, indicating the clavicular notch as the location of possible obstruction. Pt did have a MBS at [facility] prior to this admission on 02/11 which showed poor PES distention w/ the appearance of a CP bar. RN and Dr. Gramajo notified and GI consulted. Recommend to hold PO intake w/ [employer] to reassess swallow function 02/22/22 a.m. following GI follow up. 02/21/22 GI: I recommend a repeat swallow evaluation. It is a possibility day he has cricopharyngeal achalasia, esophageal ring, erosive esophagitis, esophageal web causing esophageal dysphagia. Patient is actually doing okay at this time. Hopefully when he has a repeat swallowing eval he will be okay and not require upper endoscopy for further evaluation. 02/22/22 CBSE at bedside w/ patinet to remain on pureed textures/mildly thick liquids w/out advancement pending MBSS completion 02/26/22 Current Diet Ordered: puree/mildly thick Dentition: Natural Teeth Mental Status: Impaired - s/p CVA w/ expressive/receptive aphasia - able to sufficiently follow commands for participation in MBSS Respiratory Status: Oxygenating on Room Air - Penetration-Aspiration Scale Penetration-Aspiration Scale: OBJECTIVE ASSESSMENT OF SWALLOW FUNCTION (QUANTITATIVE ? PER TRIAL): PENETRATION / ASPIRATION SCALE (DENNIS): 1 = does not enter airway 2 = enters airway/above vocal folds/ejected 3 = enters airway/above vocal folds/not ejected 4 = enters airway/contacts vocal folds/ejected 5 = enters airway/contacts vocal folds/not ejected 6 = enters airway/below vocal folds/ejected 7 = enters airway/below vocal folds/not ejected despite effort 8 = enters airway/below vocal folds/no effort VIDEOFLOROSCOPIC SCALE SCORE (DENNIS): Grade I = aspiration of material that has penetrated into the laryngeal vestibule, intact cough reflex Grade II = aspiration < 10 % of the bolus, intact cough reflex Grade III = aspiration of < 10 % of the bolus, reduced cough reflex or aspiration of > 10 % of the bolus, intact cough reflex Grade IV = aspiration of > 10 % of the bolus, reduced cough reflex - Penetration-Aspiration Scale Score Thin Liquid via teaspoon Result: 1= does not enter airway Thin Liquid via teaspoon Trial 2 Result: 1= does not enter airway Thin Liquid via small single sip from cup Result: 7= enters airways/below vocal folds/not ejected despite effort Comment: Grade II = aspiration < 10 % of the bolus, intact cough reflex; premature pharyngeal bolus entry w/ spillage into the laryngeal vestibule resulting in aspiration BEFORE swallow onset; cough response present but not effective to expel tracheal aspirate Thin Liquid via small single sip from cup - cued oral hold prior to swallow Result: 1= does not enter airway Thin Liquid via single sip from straw - cued oral hold prior to swallow Result: 1= does not enter airway [place] Thick Liquid via small single sip from cup Result: 1= does not enter airway Pudding Result: 1= does not enter airway Pudding Trial 2 Result: 1= does not enter airway Cookie Result: 1= does not enter airway Thin Liquid via single sip from straw Result: 1= does not enter airway Thin Liquid via single sip from straw Trial 2 Result: 3= enters airways/above vocal folds/not ejected Thin Liquid via single sip from straw - cued oral hold prior to swallow Trial 2 Result: 1= does not enter airway [place] Thick Liquid via single sip from straw Result: 1= does not enter airway - Oral Phase Labial Seal: Escape beyond interlabial space; no extension beyond jhonny border Tongue Control During Bolus Hold: Escape to lateral buccal cavity/floor of mouth Bolus Preparation/Mastication: Timely and efficient chewing and mashing Bolus Transport/Lingual Motion: Brisk tongue motion Oral Residue: Residue collection on oral structures - Pharyngeal Phase Initiation of Pharyngeal Swallow: Bolus head in pyriforms Soft Palate Elevation: No bolus between soft palate and pharyngeal wall Laryngeal Elevation: Comp. Superior move thyroid cart w/comp. apprx arytenoid cart-epig pet Anterior Hyoid Excursion: Partial anterior movement Epiglottic Movement: Complete inversion Laryngeal Vestibule Closure at Height of Swallow: Complete; no air/contrast in laryngeal vestibule Pharyngeal Stripping Wave: Present - complete Pharyngoesophageal Segment Opening: Parital distension and partial duration; parital obstruction of flow Tongue Base Retraction: Trace column of contrast between tongue base & post. pharyngeal wall Pharyngeal Residue: Trace residue within or on pharyngeal structures - Esophageal Phase Esophageal Clearance: Esophageal retention - Diagnosis/Impression Diagnosis: moderate oral, mild pharyngeal, moderate esophageal dysphagia Impression: The oral phase is characterized by: anterior bolus protrusion between lips during mastication of cookie mildly disorganized mastication w/ R buccal cavity pocketing oral residue retention required multiple swallows to clear (independently initiated) premature pharyngeal bolus entry resulted in spillage of thin liquid into the laryngeal vestibule w/ subsequent aspiration BEFORE swallow onset; cough response present but not effective to expel tracheal aspirate posterior bolus loss w/ liquids, improved when cued for oral hold prior to swallow onset and effectively prevented penetration/aspiration The pharyngeal/esophageal phase is marked by: mildly reduced anterior hyoid excursion trace-mild oral residue retention w/in the valleculae (independently elicits 1-2 additional swallows to clear residue sufficiently) mildly reduced PES distention w/ impaired esophageal bolus flow; bolus flow obstruction and esophageal bolus retention d/t appearance of a bar-like protrusion from the posterior esophageal wall (SEE PICTURE BELOW) Recommendations Diet: Pureed textures/Thin liquids via straw Diet to be advanced to thin liquids following meal analysis w/ [employer] on 02/27/22 to assess thin liquid tolerance w/ adherence to below listed compensatory strategies Supervision: Total Feed Compensatory Strategies: small sip by straw verbally cue to hold on mouth then swallow swallow 2-3x per bite/sip check R cheek for buccal pocketing, cue for lingual sweep to clear alternate bites and sips at reasonable intervals t/o meal Education: Images were reviewed w/ the patient following MBS conclusion. Extended time spent providing education re: anatomy/physiology of swallow function and of deficits identified. Results, recommendation and plan of care going forward were discussed with the Patient verbalizing understanding and agreement with all recommendations and education provided. Referrals: Recommend Gastroenterology referral to evaluate/treat esophageal dysfunction; would defer advancing beyond pureed textures until seen by GI - Status Active ST Patient: Active - Contact Information [facility] Speech Therapy:: Ermelinda Maxwell M.A., [facility] [facility] [address] [place] [address] [phone] [email or web address]
[2022-02-26 14:31] VITALS: BMI 26.5
--- NOTE | 2022-02-26 17:23 | NURSING ---
Franchesca aware where the hearing aides are and she needs to go pick them up.
--- NOTE | 2022-02-26 18:12 | PCM.PROGNOTE ---
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 Objective Data Objective Data Vital Signs: Vital Signs Temp Pulse Resp BP Pulse Ox O2 Del Method 97.7 F L 98 20 H 113/70 97 Room Air 02/26/22 07:46 02/26/22 07:54 02/26/22 07:46 02/26/22 07:46 02/26/22 07:46 02/25/22 19:26 Oxygen Delivery Method Room Air Weight: 177 lb 4.026 oz Body Mass Index (BMI) 26.5 Intake & Output: Intake and Output for Last 24 Hours 02/24/22 02/25/22 02/26/22 23:59 23:59 23:59 Intake Total 1160 / 1160 1400 / 1400 400 / 400 Balance 1160 / 1160 1400 / 1400 400 / 400 Lab / Micro Data Result Diagrams: 02/25/22 04:51 02/20/22 05:31 Micro: Microbiology 02/23/22 11:55 Stool Stool Occult Blood (DAVID) - Final Physical Exam Const alert and oriented x3 General Appearance: cooperative Neck General: trachea midline; Negative for lymphadenopathy Resp normal respiratory effort, normal air movement and clear to auscultation bilaterally Cardio Cardio Narrative: He remains in AF with a resting HR in the 90's. No gallop. GI normal to inspection, nondistended, normoactive bowel sounds, soft to palpation and non-tender Extremity no calf tenderness General Extremity: Negative for edema Skin General Skin Exam: no breakdown Rashes: no rashes Psych thought process normal and cooperative Assessment & Plan Assessment/Plan (1) Dysphagia: PLAN: I will schedule him for an EGD so we can evaluate his upper esophagus. Please give him n.p.o. past midnight. Charges/Coding Visit Charges Inpatient E&M: 43371 SNF Subs L2
[2022-02-26] MEDS: 0.9% Saline Lock 10 ML Syringe IV (19:11)
[2022-02-26 22:00] VITALS: BP 113/62; PULSE 89; RESP 15; TEMP 36.6; O2SAT 96
[2022-02-26 22:58] VITALS: BP 113/62; PULSE 89
[2022-02-26] MEDS: Atorvastatin Calcium 80 MG Tablet PO (22:58)
--- NOTE | 2022-02-27 04:08 | NURSING ---
Reviewed and agree with Erin MARKHAM's, documentation and assessment charting.
[2022-02-27] MEDS: 0.9% Saline Lock 10 ML Syringe IV ×2 (05:29→19:40)
[2022-02-27 08:50] VITALS: BP 121/69; PULSE 90; RESP 16; TEMP 36.2; O2SAT 95
--- NOTE | 2022-02-27 14:28 | NURSING ---
receive call from surgery. Dr Garcia will not do EGD today will do it tomorrow 02/28 at 1200. make patient NPO at 0600
[2022-02-27 15:07] VITALS: BMI 26.5
--- NOTE | 2022-02-27 15:21 | SUR.PREOP ---
rehab called and informed them to have the pt down to AC tomorrow- 02/28 at 2991
[2022-02-27 19:13] VITALS: BP 128/68; PULSE 97; RESP 16; TEMP 36.7; O2SAT 96
[2022-02-27 19:50] VITALS: PULSE 97
[2022-02-27] MEDS: Menthol/Lanolin/Calamine/Znox 113 GM Tube 1 APPLIC TOPICAL (19:50)
[2022-02-27] MEDS: Metoprolol Tartrate 50 MG Tablet PO (19:50)
[2022-02-27] MEDS: Atorvastatin Calcium 80 MG Tablet PO (19:51)
[2022-02-27] MEDS: APIXABAN 5 MG TABLET PO (19:51)
[2022-02-28] VITALS (10 sets, daily range): BP systolic 103–128; BP diastolic 54–70; PULSE 90–107; RESP 16–20; TEMP 36.7–37.2; O2SAT 95–97; BMI 26.5
--- NOTE | 2022-02-28 | IMM_PTH ---
PATIENT: MIRI REES LOC: RU U#:[id number] AGE/SX: 76/M ROOM: 403 RE02/19/[address]: Dr. Janneth Varma DO : 1945 BED: 1 DIS: 03/14/2022 SPEC #: [id number] RECD: 03/01/22 13:59 STATUS: REX REBashir #: [id number] CHICO: 02/28/22 00:[address]: Johnnie Garcia DEPT: IMMUNOHISTOCHEMISTRY RECD BY: Radha Obrien ENTERED: 03/01/22 13:59 SP TYPE: IMMUNO OTHR DR: DO Dr. Lucien Dominguez Chi, MD Tissues: Esophageal mucous membrane Procedures: P53 (initial) KI-67 (add) PHYSICIAN & INSTITUTION [place] [address] SPECIMEN INFORMATION: Tissue Source: Distal esophagus biopsy Clinical Info: Dysphagia Specimen Number: [id number] CPT code: 86888, 43524 METHODOLOGY: Deparaffinized sections of prefer/formalin-fixed tissue or PAP/DQ stained slides are incubated with monoclonal/polyclonal antibodies/oligonucleotide probes. Localization is made via biotin free immunoperoxidase method. Appropriate controls are performed and reacted as expected. Results on target cell population are indicated in the following table: RESULTS: ANTIBODY / CLONE RESULT P53 (DO-7) negative Ki-67 (30-9) positive, low These tests were developed and their performance characteristics determined by [facility]. They may not have been cleared or approved by the U.S. Food and Drug Administration. The FDA has determined that such clearance or approval is not necessary. The above immunohistochemical/dualISH markers are ordered and reviewed by the Pathologist. INTERPRETATION: Distal esophagus, biopsy: No evidence of dysplasia. AM:bryant 03/04/2022
[2022-02-28] MEDS: 0.9% Saline Lock 10 ML Syringe IV (00:02)
--- NOTE | 2022-02-28 03:22 | NURSING ---
Reviewed and agree with Eugenia Benitez LPN's documentation and assessment charting.
[2022-02-28] MEDS: Lactated Ringers 1,000 ML 15 ML IV (06:10)
--- NOTE | 2022-02-28 06:30 | EGD_PTH ---
PATIENT: MIRI REES LOC: RU U#:[id number] AGE/SX: 76/M ROOM: RU403 RE02/19/[address]: Dr. Janneth Varma DO : 1945 BED: 1 DIS: 03/14/2022 SPEC #: [id number] RECD: 02/28/22 11:01 STATUS: REX MARGIE #: [id number] CHICO: 02/28/22 06:[address]: Johnnie Garcia DEPT: SURGICAL PATHOLOGY RECD BY: Jessica Frias ENTERED: 02/28/22 11:40 SP TYPE: EGD BIOPSY OTHR DR: DO Dr. Johnnie Dominguez DO Dr. Tai Chi Kwok, MD Tissues: Esophagus, NOS Procedures: Special Stain Group II Surgery Specimen Level IV Alcian Blue/PAS (control) Comments: @ Ordering doctor for SUIV edited from to @ by SARWAT at 02/28/22 141 @ Submitting doctor edited from to @ by RGOOD at 02/28/221411 HEADER OPERATION: EGD (MAC), biopsy, dilation PRE-OP DIAGNOSIS: Dysphagia TISSUE SUBMITTED: Distal esophagus biopsy MICROSCOPIC DIAGNOSIS Distal esophagus, biopsy: Gastroesophageal junction with chronic inflammation. 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 No evidence of dysplasia. See comment. AM:bryant 03/01/2022 COMMENT Alcian blue/PAS stain with matched control supports the above diagnosis. Immunohistochemistry ([id number]) for P53 and Ki-67 will be performed and results will be reported separately. MICROSCOPIC DESCRIPTION Slides are reviewed. GROSS DESCRIPTION Received in fixative is one container labeled with the patient's name and designated distal esophagus. The specimen consists of multiple irregular fragments of light parmar soft tissue that in aggregate measure 2 x 1.5 x 0.1 cm. The specimen is totally submitted in one cassette. / AM:bryant 02/28/2022 TC:3 CPT: 54276, 55179
--- NOTE | 2022-02-28 06:57 | OP.EGD_ITS ---
Patient Name: Jhonathan Hughes Procedure Date: 02/28/2022 6:08 AM Date of : 1945 Age: 76 Procedure: Upper GI endoscopy Indications: Dysphagia Providers: Johnnie Garcia DO Medicines: Monitored Anesthesia Care Patient Profile: This is a 76 year old male. Refer to note in patient chart for documentation of history and physical. Patient has symptoms of dysphagia with both liquids and solids. Complications: No immediate complications. Procedure: Pre-Anesthesia Assessment: - Prior to the procedure, a History and Physical was performed, and patient medications and allergies were reviewed. The risks and benefits of the procedure and the sedation options and risks were discussed with the patient. All questions were answered and informed consent was obtained. Patient identification and proposed procedure were verified by the physician in the pre-procedure area. Mental Status Examination: alert and oriented. Airway Examination: normal oropharyngeal airway and neck mobility. Respiratory Examination: clear to auscultation. CV Examination: normal. Prophylactic Antibiotics: The patient does not require prophylactic antibiotics. Prior Anticoagulants: The patient has taken no previous anticoagulant or antiplatelet agents. After reviewing the risks and benefits, the patient was deemed in satisfactory condition to undergo the procedure. The anesthesia plan was to use monitored anesthesia care (MAC). Immediately prior to administration of medications, the patient was re-assessed for adequacy to receive sedatives. The heart rate, respiratory rate, oxygen saturations, blood pressure, adequacy of pulmonary ventilation, and response to care were monitored throughout the procedure. The physical status of the patient was re-assessed after the procedure. After obtaining informed consent, the endoscope was passed under direct vision. Throughout the procedure, the patient's blood pressure, pulse, and oxygen saturations were monitored continuously. The gastroscope was introduced through the mouth, and advanced to the second part of duodenum. The upper GI endoscopy was accomplished without difficulty. The patient tolerated the procedure well. Scope In: 6:41:34 AM Scope Out: 6:50:55 AM Total Procedure Duration Time 0 hours 9 minutes 21 seconds Findings: Mucosal changes including ringed esophagus, feline appearance, longitudinal furrows, small-caliber esophagus and circumferential folds were found in the upper third of the esophagus, in the middle third of the esophagus and in the lower third of the esophagus. Esophageal findings were graded using the Eosinophilic Esophagitis Endoscopic Reference Score (EoE-EREFS) as: Edema Grade 1 Present (decreased clarity or absence of vascular markings), Rings Grade 2 Moderate (distinct rings that do not occlude passage of diagnostic 8-10 mm endoscope), Exudates Grade 1 Mild (scattered white lesions involving less than 10 percent of the esophageal surface area) and Stricture present (8 mm luminal diameter). Biopsies were obtained from the proximal and distal esophagus with cold forceps for histology of suspected eosinophilic esophagitis. Verification of patient identification for the specimen was done. Estimated blood loss was minimal. A guidewire was placed and the scope was withdrawn. Dilation was performed with a Savary dilator with no resistance at 54 Fr. The dilation site was examined and showed moderate improvement in luminal narrowing. Estimated blood loss was minimal. A medium-sized hiatal hernia was present. Diffuse atrophic mucosa was found in the entire examined stomach. No gross lesions were noted in the second portion of the duodenum. Impression: - Esophageal mucosal changes consistent with eosinophilic esophagitis. Biopsied. Dilated. - Medium-sized hiatal hernia. - Gastric mucosal atrophy. - No gross lesions in the second portion of the duodenum. Recommendation: - [facility]. - Resume previous diet. - Continue present medications. - Await pathology results. - Use Protonix (pantoprazole) 40 mg PO BID for 8 weeks. Procedure Code(s): --- Professional --- 67097, Esophagogastroduodenoscopy, flexible, transoral; with insertion of guide wire followed by passage of dilator(s) through esophagus over guide wire 13507, 59,51, Esophagogastroduodenoscopy, flexible, transoral; with biopsy, single or multiple CPT copyright 2017 [employer]. All rights reserved. The codes documented in this report are preliminary and upon nurses director review may be revised to meet current compliance requirements. Johnnie Garcia DO 02/28/2022 6:56:51 AM This report has been signed electronically. Number of Addenda: 0 Note Initiated On: 02/28/2022 6:08 AM
--- NOTE | 2022-02-28 10:04 | PN_ITS ---
Subjective Subjective Jhonathan was seen and examined post endoscopy. I reviewed the operative report and eosinophilic esophagitis is suspected. He is now on Protonix 40 mg twice daily for the next 8 weeks. Biopsies were taken and the results are pending. Jhonathan is awake and appropriate. VS are stable. He denies SOB and also denies CP. Afebrile VSS Maintaining appropriate oxygen saturation on RA Oral intake is he was n.p.o. most of yesterday in preparation for EGD which was scheduled for 02/27/2022. The procedure was canceled yesterday and he was rescheduled for this AM. Mucous membranes are dry and we are not going to inf use the remainder of the bag of normal saline currently hanging. He denies lightheadedness. ?He tells me that his danny-rectal area is feeling better with the Discussed with nursing - no problems that need addressed Reviewed the PT/OT/ST notes Medication list reviewed. Protonix has been added to his drug regimen. Jhonathan denies SOB, CP, nausea, abdominal pain, lightheadedness, calf tenderness, burning with urination, cephalgia. D/W the St and she is going to keep him on pureed until she can have a meal with him tomorrow. Objective Data Objective Data Vital Signs: Vital Signs Temp Pulse Resp BP Pulse Ox O2 Del Method 98.1 F 102 H 18 124/70 H 95 Room Air 02/28/22 07:32 02/28/22 07:32 02/28/22 07:32 02/28/22 07:32 02/28/22 07:32 02/28/22 07:32 Oxygen Delivery Method Room Air Weight: 182 lb 15.739 oz Body Mass Index (BMI) 26.5 Intake & Output: Intake and Output for Last 24 Hours 02/26/22 02/27/22 02/28/22 23:59 23:59 23:59 Intake Total 1200 / 1200 300 / 300 57.25 / 57.25 Balance 1200 / 1200 300 / 300 57.25 / 57.25 Lab / Micro Data Result Diagrams: 02/25/22 04:51 02/20/22 05:31 Micro: Microbiology 02/23/22 11:55 Stool Stool Occult Blood (DAVID) - Final Physical Exam Const alert and no apparent distress Resp Resp Narrative: no labored breathing and denies SOB. No cough. Has few coarse crackles in the R base. No wheezes. Not tachypneic. Cardio no gallops Cardio Narrative: In AF but the resting HR is somewhat better since the Cardizem was started. GI normal to inspection, nondistended, normoactive bowel sounds, soft to palpation and non-tender GI Narrative: Not tympanic Extremity no calf tenderness General Extremity: Negative for edema Skin Wound Narrative: Less erythema in the anal cleft. and no openings in the skin. Assessment & Plan Assessment/Plan (1) Debility: (2) Acute ischemic left MCA stroke: (3) Dysphagia: (4) Esophageal stenosis: (5) Esophageal obstruction: (6) Eosinophilic esophagitis: (7) Status post dilation of esophageal narrowing: PLAN: Plan 1. Continue therapy 2. Protonix 40 mg BID for the next 8 weeks. Will follow up with Dr. Garcia post discharge. 3. Pureed diet today. ST will eat a meal of minced and moist tomorrow with him and advance as indicated. The obstruction has been dilated but he still has dysphagia related to the CVA. 4. Apply arthritis cream to the R biceps for spasm/pain 5. I discussed the possible etiology of the esophageal problem with him and that the biopsies were done looking for eosinophilic infiltration into the esophagus causing ridging of the entire esophagus. Will discuss treatment with him once the biopsy report is back. 6. He can now move the elbow but, can not feel it. Same with the leg. 7. Await the results of the esophageal biopsies but suspect they will not be back until next week. Charges/Coding Visit Charges Inpatient E&M: 60229 Subs Hosp L2
[2022-02-28] MEDS: APIXABAN 5 MG TABLET PO ×2 (10:10→20:11)
[2022-02-28] MEDS: Clopidogrel Bisulfate 75 MG Tablet PO (10:10)
[2022-02-28] MEDS: Tamsulosin HCl 0.4 MG Capsule PO (10:10)
[2022-02-28] MEDS: dilTIAZem CD 120 MG Capsule PO (10:10)
[2022-02-28] MEDS: Metoprolol Tartrate 50 MG Tablet PO ×2 (10:10→20:11)
[2022-02-28] MEDS: Menthol/Lanolin/Calamine/Znox 113 GM Tube 1 APPLIC TOPICAL ×2 (10:14→20:11)
[2022-02-28] MEDS: Pantoprazole Sodium 40 MG Tablet PO ×2 (10:54→20:12)
--- NOTE | 2022-02-28 12:51 | CASEMGMT ---
Social Work IDT met with patient and sister, nephew via conference call for Team meeting. Discussed patient's progress in PT/OT/ST/SN. Educated to Medicare approval for 23 days with DC 03/14. Pt will DC to a SNF skilled. Inquired about SNF choices to start referrals. Offered to send SNF list to sister and nephew. Sent list via [employer] to email. Family to review. SW to continue to follow for DC planning. Will ReTeam. Liza Oneal, ACCOUNT RESOLUTION EXPERT TEST CONSULTANT
[2022-02-28] MEDS: Arthritis Pain Compound 60 CLICK TUBE TOPICAL ×2 (13:16→20:05)
[2022-02-28] MEDS: Atorvastatin Calcium 80 MG Tablet PO (20:12)
[2022-03-01] MEDS: Arthritis Pain Compound 60 CLICK TUBE TOPICAL ×3 (06:05→20:05)
[2022-03-01] MEDS: 0.9% Saline Lock 10 ML Syringe IV ×2 (06:05→16:36)
[2022-03-01 08:23] VITALS: BP 127/67; PULSE 86; RESP 18; TEMP 36.9; O2SAT 96
[2022-03-01] MEDS: Clopidogrel Bisulfate 75 MG Tablet PO (08:53)
[2022-03-01] MEDS: Tamsulosin HCl 0.4 MG Capsule PO (08:53)
[2022-03-01] MEDS: Pantoprazole Sodium 40 MG Tablet PO ×2 (08:53→20:06)
[2022-03-01] MEDS: APIXABAN 5 MG TABLET PO ×2 (08:53→20:06)
[2022-03-01 08:54] VITALS: PULSE 95
[2022-03-01] MEDS: dilTIAZem CD 120 MG Capsule PO (08:54)
[2022-03-01] MEDS: Menthol/Lanolin/Calamine/Znox 113 GM Tube 1 APPLIC TOPICAL ×2 (08:54→20:04)
[2022-03-01] MEDS: Metoprolol Tartrate 50 MG Tablet PO ×2 (08:54→20:05)
[2022-03-01 10:00] VITALS: PULSE 95; RESP 16; O2SAT 97
[2022-03-01 11:24] VITALS: BMI 26.5
[2022-03-01 19:16] VITALS: BP 114/62; PULSE 90; RESP 16; TEMP 36.8; O2SAT 97
[2022-03-01 19:50] VITALS: O2SAT 98
[2022-03-01 20:05] VITALS: BP 114/62; PULSE 90
[2022-03-01] MEDS: Atorvastatin Calcium 80 MG Tablet PO (20:05)
[2022-03-02] MEDS: Arthritis Pain Compound 60 CLICK TUBE TOPICAL ×3 (05:15→21:44)
[2022-03-02 08:10] VITALS: BP 119/63; PULSE 96; RESP 16; TEMP 36.6; O2SAT 96
[2022-03-02] MEDS: APIXABAN 5 MG TABLET PO ×2 (09:34→21:43)
[2022-03-02] MEDS: Tamsulosin HCl 0.4 MG Capsule PO (09:34)
[2022-03-02] MEDS: dilTIAZem CD 120 MG Capsule PO (09:34)
[2022-03-02] MEDS: Pantoprazole Sodium 40 MG Tablet PO ×2 (09:35→21:43)
[2022-03-02] MEDS: Clopidogrel Bisulfate 75 MG Tablet PO (09:35)
[2022-03-02 09:36] VITALS: PULSE 84
[2022-03-02] MEDS: Metoprolol Tartrate 50 MG Tablet PO ×2 (09:36→21:42)
[2022-03-02] MEDS: Menthol/Lanolin/Calamine/Znox 113 GM Tube 1 APPLIC TOPICAL ×2 (10:44→21:46)
[2022-03-02 17:00] VITALS: BMI 26.5
[2022-03-02 21:21] VITALS: BP 130/79; PULSE 81; RESP 18; TEMP 36.5; O2SAT 98
[2022-03-02 21:26] VITALS: PULSE 81; RESP 18; O2SAT 98
[2022-03-02 21:42] VITALS: BP 130/79; PULSE 81
[2022-03-02] MEDS: Atorvastatin Calcium 80 MG Tablet PO (21:44)
[2022-03-03 02:41] VITALS: BMI 26.5
[2022-03-03] MEDS: Arthritis Pain Compound 60 CLICK TUBE TOPICAL ×3 (05:02→20:50)
[2022-03-03] MEDS: Menthol/Lanolin/Calamine/Znox 113 GM Tube 1 APPLIC TOPICAL ×2 (05:02→20:54)
[2022-03-03 10:00] VITALS: BP 132/73; PULSE 99; RESP 16; TEMP 36.2; O2SAT 98
[2022-03-03] MEDS: Tamsulosin HCl 0.4 MG Capsule PO (10:43)
[2022-03-03] MEDS: APIXABAN 5 MG TABLET PO ×2 (10:43→20:50)
[2022-03-03] MEDS: dilTIAZem CD 120 MG Capsule PO (10:43)
[2022-03-03 10:44] VITALS: PULSE 99
[2022-03-03] MEDS: Pantoprazole Sodium 40 MG Tablet PO ×2 (10:44→21:45)
[2022-03-03] MEDS: Metoprolol Tartrate 50 MG Tablet PO ×2 (10:44→20:49)
[2022-03-03] MEDS: Clopidogrel Bisulfate 75 MG Tablet PO (10:44)
[2022-03-03 13:12] VITALS: BMI 26.5
[2022-03-03 20:40] VITALS: BP 133/77; PULSE 81; RESP 16; TEMP 36.6; O2SAT 96
[2022-03-03 20:49] VITALS: BP 123/64; PULSE 81
[2022-03-03] MEDS: Atorvastatin Calcium 80 MG Tablet PO (20:49)
[2022-03-04 00:24] VITALS: BMI 26.5
[2022-03-04] MEDS: Arthritis Pain Compound 60 CLICK TUBE TOPICAL ×3 (05:05→21:06)
[2022-03-04] MEDS: Menthol/Lanolin/Calamine/Znox 113 GM Tube 1 APPLIC TOPICAL ×2 (05:07→20:50)
[2022-03-04 07:15] VITALS: BP 134/68; PULSE 92; RESP 16; TEMP 36.7; O2SAT 98
[2022-03-04] MEDS: dilTIAZem CD 120 MG Capsule PO (08:14)
[2022-03-04 08:15] VITALS: PULSE 72
[2022-03-04] MEDS: APIXABAN 5 MG TABLET PO ×2 (08:15→21:06)
[2022-03-04] MEDS: Tamsulosin HCl 0.4 MG Capsule PO (08:15)
[2022-03-04] MEDS: Metoprolol Tartrate 50 MG Tablet PO ×2 (08:15→21:06)
[2022-03-04] MEDS: Clopidogrel Bisulfate 75 MG Tablet PO (08:17)
[2022-03-04] MEDS: Pantoprazole Sodium 40 MG Tablet PO ×2 (08:17→21:06)
--- NOTE | 2022-03-04 10:45 | PN_ITS ---
Subjective Subjective Afebrile VSS-heart rate has come under better control. Blood pressures are within goal. Maintaining appropriate oxygen saturation on RA Oral intake is consistently above 1000 cc/day now. Having the esophageal dilat ion has improved his swallowing ability significantly. He denies CP. Continues to be incontinent of stool and urine. Discussed with nursing - no problems that need addressed Reviewed the PT/OT/ST notes Medication list reviewed. Denies lightheadedness, CP, SOB, palpitations, N/V/ABD pain, dysuria, kelly pain. No complaints. Objective Data Objective Data Vital Signs: Vital Signs Temp Pulse Resp BP Pulse Ox O2 Del Method 98.1 F 72 16 134/68 H 98 Room Air 03/04/22 07:15 03/04/22 08:15 03/04/22 07:15 03/04/22 07:15 03/04/22 07:15 03/04/22 07:15 Oxygen Delivery Method Room Air Weight: 174 lb 6.17 oz Body Mass Index (BMI) 26.5 Intake & Output: Intake and Output for Last 24 Hours 03/02/22 03/03/22 03/04/22 23:59 23:59 23:59 Intake Total 1080 / 1080 1140 / 1140 Balance 1080 / 1080 1140 / 1140 Lab / Micro Data Result Diagrams: 03/13/22 05:32 03/11/22 04:18 Micro: Microbiology 02/23/22 11:55 Stool Stool Occult Blood (DAVID) - Final Physical Exam Const alert and no apparent distress Constitutional Narrative: looks pale General Appearance: cooperative HEENT HEENT Narrative: Mucous membranes are more moistened today. Resp Resp Narrative: He has a few coarse crackles in the right base but after a few deep breaths this did clear and the lungs were clear to auscultation. He is not tachypneic and has no air hunger. Cardio Cardio Narrative: Irregular irregular rhythm with good rate control. No gallop. GI normal to inspection, nondistended, normoactive bowel sounds, soft to palpation and non-tender Extremity no calf tenderness General Extremity: Negative for edema Skin General Skin Exam: no breakdown Rashes: no rashes Neuro Neuro Narrative: oriented to person only. Did not know his age. Could now tell me why he is here other than to say medical. Could not tell me the year. He is able to follow commands. Voice is stronger and less slurring. Persistent R side weakness. Still incontinent of urine and stool. Assessment & Plan Assessment/Plan (1) Debility: (2) Acute ischemic left MCA stroke: (3) Right hemiplegia: (4) Dysphagia: (5) Urinary incontinence: (6) GERD (gastroesophageal reflux disease): (7) Barretts esophagus: (8) Cognitive dysfunction: PLAN: Plan 1. Continue therapy. 2. BMP, MAG and CBC today 3. Continue Calmoseptine to the perianal area. 4. Await the pathology on the esophageal biopsies. Charges/Coding Visit Charges Inpatient E&M: 29496 Subs Hosp L2
[2022-03-04 11:16] LABS: Hematocrit 37.5 % (40-54); Hemoglobin 11.7 g/dL (13.0-16.5); Mean Corp Hgb Conc 31.2 g/dL (32-36); Mean Corpuscular Hgb 29.5 pg (27.0-32.0); Mean Corpuscular Volume 94.5 fL (80-94); Mean Platelet Vol. 9.8 fl (6.2-12.0); Platelet Count 372 K/mm3 (150-450); RBC Distribution Width CV 15.2 % (11.6-14.6); RBC Distribution Width SD 52.3 fl (35.1-43.9); Red Blood Count 3.97 M/mm3 (4.6-6.2); White Blood Count 4.7 K/mm3 (4.4-11.0)
[2022-03-04 12:59] LABS: Anion Gap 8 (5-15); BUN 20 mg/dL (7-18); BUN/Creat Ratio 23.8 RATIO (10-20); Calcium,Total 9.8 mg/dL (8.5-10.1); Chloride 107 mmol/L (98-107); Creatinine, Serum 0.84 mg/dL (0.70-1.30); EST Glomerular Filtration Rate 94 mL/min (>60); Est Glom Filt Rate - Afr Amer 114 mL/min (>60); Estimated Creatinine Clearance 74.83 ml/min; Glucose 139 mg/dL (74-106); Magnesium 2.1 mg/dL (1.6-2.6); Potassium 3.9 mmol/L (3.5-5.1); Sodium Level 139 mmol/L (136-145)
[2022-03-04 13:31] VITALS: BMI 26.5
[2022-03-04 20:48] VITALS: BP 139/83; PULSE 110; RESP 16; TEMP 36.4; O2SAT 98
[2022-03-04 21:00] VITALS: BMI 26.5
[2022-03-04 21:06] VITALS: PULSE 106
[2022-03-04] MEDS: Atorvastatin Calcium 80 MG Tablet PO (21:06)
[2022-03-05] MEDS: Arthritis Pain Compound 60 CLICK TUBE TOPICAL ×3 (06:03→21:50)
[2022-03-05] MEDS: Menthol/Lanolin/Calamine/Znox 113 GM Tube 1 APPLIC TOPICAL ×2 (06:03→21:51)
[2022-03-05 07:28] VITALS: BP 111/74; PULSE 92; RESP 16; TEMP 36.9; O2SAT 97
[2022-03-05 08:23] VITALS: BP 111/74; PULSE 92
[2022-03-05] MEDS: Metoprolol Tartrate 50 MG Tablet PO ×2 (08:23→21:50)
[2022-03-05] MEDS: Pantoprazole Sodium 40 MG Tablet PO ×2 (08:23→21:50)
[2022-03-05] MEDS: Clopidogrel Bisulfate 75 MG Tablet PO (08:23)
[2022-03-05] MEDS: Tamsulosin HCl 0.4 MG Capsule PO (08:23)
[2022-03-05] MEDS: APIXABAN 5 MG TABLET PO ×2 (08:24→21:50)
[2022-03-05] MEDS: dilTIAZem CD 120 MG Capsule PO (08:24)
--- NOTE | 2022-03-05 13:57 | CASEMGMT ---
Addendum entered by Liza Oneal 03/07/22 09:54: Niece requesting referrals to the remaining [place] facilities. Referrals sent via [facility] to [facility], [facility] Addendum entered by Liza Oneal 03/07/22 09:41: Received email from niece requesting update on SNF choices. [facility]. Michelle has not provided an update. Niece not sure which facility family will choose and will discuss with mother. Team meeting is today as well to discuss. Original Note: Social Work Received preferences of SNFs via [facility]. Referrals made to first 5 options: TCU - IDT agree pt is not appropriate. [facility], [facility], [facility]. Will await outcomes. JAMES Allen
[2022-03-05 15:26] VITALS: BMI 26.5
[2022-03-05 19:25] VITALS: BMI 26.5
[2022-03-05 21:36] VITALS: BP 144/74; PULSE 88; RESP 16; TEMP 36.6; O2SAT 97
[2022-03-05 21:50] VITALS: PULSE 88
[2022-03-05] MEDS: Atorvastatin Calcium 80 MG Tablet PO (21:51)
[2022-03-06] MEDS: Menthol/Lanolin/Calamine/Znox 113 GM Tube 1 APPLIC TOPICAL ×2 (05:02→20:24)
[2022-03-06] MEDS: Arthritis Pain Compound 60 CLICK TUBE TOPICAL ×3 (05:03→20:25)
[2022-03-06 07:56] VITALS: BP 140/76; PULSE 92; RESP 16; TEMP 36.5; O2SAT 97
[2022-03-06 08:04] VITALS: PULSE 92
[2022-03-06] MEDS: Metoprolol Tartrate 50 MG Tablet PO ×2 (08:04→20:24)
[2022-03-06] MEDS: Pantoprazole Sodium 40 MG Tablet PO ×2 (08:04→20:24)
[2022-03-06] MEDS: Clopidogrel Bisulfate 75 MG Tablet PO (08:04)
[2022-03-06] MEDS: APIXABAN 5 MG TABLET PO ×2 (08:05→20:24)
[2022-03-06] MEDS: Tamsulosin HCl 0.4 MG Capsule PO (08:05)
[2022-03-06] MEDS: dilTIAZem CD 120 MG Capsule PO (08:05)
--- NOTE | 2022-03-06 13:07 | PCM.PROGNOTE ---
Subjective Subjective Afebrile VSS Maintaining appropriate oxygen saturation on RA Oral intake is averaging out to approximately [address] tells me that he is not coughing when eating or drinking and he has been advanced to thin liquids on a spoon. Remains incontinent of urine and stool. Discussed with nursing - no problems that need addressed Reviewed the PT/OT/ST notes Medication list reviewed. Jhonathan tells me that he did not sleep well last night. He intermittently c/o trouble sleeping. Last night he slept well. Today he has no complaints. No cough and no SOB. He denies cephalgia, CP, SOB, calf pain. Objective Data Objective Data Vital Signs: Vital Signs Temp Pulse Resp BP Pulse Ox O2 Del Method 97.7 F L 92 16 140/76 H 97 Room Air 03/06/22 07:56 03/06/22 08:04 03/06/22 07:56 03/06/22 07:56 03/06/22 07:56 03/06/22 07:56 Oxygen Delivery Method Room Air Weight: 173 lb 1.006 oz Body Mass Index (BMI) 26.5 Intake & Output: Intake and Output for Last 24 Hours 03/04/22 03/05/22 03/06/22 23:59 23:59 23:59 Intake Total 840 / 840 920 / 920 660 / 660 Balance 840 / 840 920 / 920 660 / 660 Lab / Micro Data Result Diagrams: 03/04/22 11:07 03/04/22 11:07 Micro: Microbiology 02/23/22 11:55 Stool Stool Occult Blood (DAVID) - Final Physical Exam Const alert, oriented x3 and no apparent distress General Appearance: cooperative HEENT moist oral mucous membranes Eyes PERRL and EOMs intact bilaterally Resp normal respiratory effort, normal air movement and clear to auscultation bilaterally Effort and Inspection: Negative for respiratory distress Cardio no gallops Cardio Narrative: Remains in AF GI normal to inspection, nondistended, normoactive bowel sounds, soft to palpation and non-tender GI Narrative: Not tympanic. No guarding with palpation. The PEG site is without erythema or purulent discharge. Extremity no calf tenderness Extremity Narrative: No edema General Extremity: Negative for edema Skin General Skin Exam: no breakdown Rashes: no rashes Wound Narrative: Less erythema in the anal cleft. and no openings in the skin. Psych thought process normal, cooperative and affect normal Attitude: No agitated Activity / Motor Behavior: Negative for restless Assessment & Plan Assessment/Plan (1) Debility: PLAN: Continue therapy (2) Acute ischemic left MCA stroke: PLAN: Embolic and due to AF with discontinuation of anticoagulant before and after recent shoulder surgery. The was a clot in the LMCA and he received TPA and then had a thrombectomy. (3) Dysphagia: PLAN: Improving (4) Esophageal stenosis: PLAN: Dilated by Dr. Garcia. Will have him follow up with Dr. Garcia post DC. Still plan for 8 weeks of Protonix BID. (5) Esophageal obstruction: (6) Status post dilation of esophageal narrowing: PLAN: Swallowing is much improved (7) Insomnia: PLAN: He has only c/o this 1-2 times........not a frequent problem. Consider starting Melatonin if this becomes a regular problem. Charges/Coding Visit Charges Inpatient E&M: 82282 Subs Hosp L2
[2022-03-06 14:39] VITALS: BMI 26.5
[2022-03-06 20:00] VITALS: BP 130/61; PULSE 87; RESP 18; TEMP 36.2; O2SAT 98; BMI 26.5
[2022-03-06 20:24] VITALS: BP 130/61; PULSE 87
[2022-03-06] MEDS: Atorvastatin Calcium 80 MG Tablet PO (20:24)
[2022-03-06] MEDS: MELATONIN 3 MG TABLET PO (20:24)
[2022-03-07] MEDS: Arthritis Pain Compound 60 CLICK TUBE TOPICAL ×3 (07:05→21:58)
[2022-03-07] MEDS: Menthol/Lanolin/Calamine/Znox 113 GM Tube 1 APPLIC TOPICAL ×2 (07:07→21:57)
[2022-03-07 08:12] VITALS: BP 113/72; PULSE 81; RESP 16; TEMP 36.9; O2SAT 96
[2022-03-07 08:13] VITALS: BP 113/72; PULSE 81
[2022-03-07] MEDS: Clopidogrel Bisulfate 75 MG Tablet PO (08:13)
[2022-03-07] MEDS: Pantoprazole Sodium 40 MG Tablet PO ×2 (08:13→21:56)
[2022-03-07] MEDS: Tamsulosin HCl 0.4 MG Capsule PO (08:13)
[2022-03-07] MEDS: APIXABAN 5 MG TABLET PO ×2 (08:13→21:56)
[2022-03-07] MEDS: Metoprolol Tartrate 50 MG Tablet PO ×2 (08:13→21:56)
[2022-03-07] MEDS: dilTIAZem CD 120 MG Capsule PO (08:13)
--- NOTE | 2022-03-07 12:15 | PN_ITS ---
Subjective Subjective Jhonathan was seen on team rounds today. His niece Piero participated by phone and all her questions were answered to her satisfaction. Afebrile VSS - blood pressure is within goal. HR is controlled. Maintaining appropriate oxygen saturation on RA Oral intake is is variable but generally averages around 1 L daily. Remains incontinent of urine and stool. Discussed with nursing - no problems that need addressed Reviewed the PT/OT/ST notes - cognition is significantly improved from admission to rehab. OT/PT have been difficult due to the fact that he is not able to use either UE. The R due to the stroke and the Left due to the recent Reverse shoulder replacement. Therefore he is not able to roll over in bed by himself or get OOB by himself. HE can not use a FWW or a hemiwalker and he can not use his arms to push up from a chair. Swallowing is doing much better and he was recently advance to thin liquids. I suspect when he is able to bear weight on the LUE he will start to be able to walk and will be independent with bed mobility. His voice is stronger and projecting better and slurring is much improved......I can understand him with no difficulty now and he is not having to repeat himself. Medication list reviewed. Art denies cephalgia, lightheadedness, chest pain, shortness of breath, cough, palpitations, nausea/vomiting, abdominal pain, dysuria, calf pain. He has no complaints other than he did not sleep well again last night.....even though he was started on Melatonin. He tells me that he has trouble going to sleep but, once he is asleep he is able to fall asleep. Objective Data Objective Data Vital Signs: Vital Signs Temp Pulse Resp BP Pulse Ox O2 Del Method 98.4 F 81 16 113/72 96 Room Air 03/07/22 08:12 03/07/22 08:13 03/07/22 08:12 03/07/22 08:13 03/07/22 08:12 03/07/22 08:12 Oxygen Delivery Method Room Air Weight: 173 lb 1.006 oz Body Mass Index (BMI) 26.5 Intake & Output: Intake and Output for Last 24 Hours 03/05/22 03/06/22 03/07/22 23:59 23:59 23:59 Intake Total 920 / 920 1340 / 1340 360 / 360 Balance 920 / 920 1340 / 1340 360 / 360 Lab / Micro Data Result Diagrams: 03/04/22 11:07 03/04/22 11:07 Micro: Microbiology 02/23/22 11:55 Stool Stool Occult Blood (DAVID) - Final Physical Exam Const alert, oriented x3 and no apparent distress Constitutional Narrative: Speech is much clearer. I have no difficulty understanding him now. General Appearance: cooperative HEENT HEENT Narrative: MM are a little dry. He is sitting up in the recliner and he denies light headedness. Eyes PERRL and EOMs intact bilaterally Neck supple General: trachea midline; Negative for lymphadenopathy Resp normal respiratory effort, normal air movement and clear to auscultation bilaterally Resp Narrative: No cough. Has few coarse crackles in the R base that clear after a few deep breaths and he has been using the IS when someone helps him. No wheezes. Not tachypneic. Effort and Inspection: Negative for respiratory distress Cardio no gallops Cardio Narrative: In AF but the resting HR is better since the Cardizem was started. The heart rate is mostly in the 80s now. GI normal to inspection, nondistended, normoactive bowel sounds, soft to palpation and non-tender GI Narrative: Not tympanic. No guarding with palpation. The PEG site is without erythema or purulent discharge. Extremity no calf tenderness Extremity Narrative: No edema General Extremity: Negative for edema Skin General Skin Exam: no breakdown Rashes: no rashes Wound Narrative: Less erythema in the anal cleft. and no openings in the skin. Neuro Neuro Narrative: making good progress with speech therapy with cognition and swallowing. Unfortunately progress with activities of daily living and ambulation has been limited by the fact that he cannot move the right arm due to the stroke and he is nonweightbearing on the left upper extremity due to the recent shoulder replacement. Will need SNF at [place]. Psych cooperative and affect normal Psych Narrative: Thought process is quicker. Attitude: No agitated Activity / Motor Behavior: Negative for restless Assessment & Plan Assessment/Plan (1) Debility: PLAN: Continue therapy (2) Acute ischemic left MCA stroke: PLAN: Embolic and due to AF with discontinuation of anticoagulant before and after recent shoulder surgery. The was a clot in the LMCA and he received TPA and then had a thrombectomy. (3) Dysphagia: PLAN: Improving (4) Esophageal stenosis: PLAN: Dilated by Dr. Garcia. Pathology report was consistent with gastroesophageal junction with chronic inflammation, focal goblet cell metaplasia consistent with Ortiz's esophagus with no evidence of dysplasia. No mention of eosinophils in the path report. Will have him follow up with Dr. Garcia post DC. Still plan for 8 weeks of Protonix BID. (5) Esophageal obstruction: (6) Eosinophilic esophagitis: PLAN: esophageal path report does not mention eosinophilic infiltration of the esophageal mucosa (7) Status post dilation of esophageal narrowing: PLAN: Swallowing is much improved (8) Insomnia: PLAN: Melatonin did not work. Will try Trazodone at HS. Will need to check 3 more PVR's in a couple days to make sure he is not retaining. PLAN: Plan Continue to encourage increased fluid intake.....jerman since he is now on thin liquids and should be able to take more fluid.........nurses and therapy will offer fluids throughout the day. Recheck a CBC with differential, BMP and an albumin on Friday. Charges/Coding Visit Charges Inpatient E&M: 69356 Subs Hosp L2
--- NOTE | 2022-03-07 13:22 | CASEMGMT ---
Social Work IDT met with patient and sister via conference call for Team meeting. Discussed patient's progress in PT/OT/ST/SN. Per Medicare, pt will DC 03/14 to a SNF skilled. [facility] stated [facility] and [facility] are first two choices. [facility] can accept. [facility] is not accepting admissions at this time, which may change before pt is ready to DC. Updated sister and confirmed first choice is [facility]. Updated [facility] to schedule transportation and complete 7000 for tx. Plan: DC 03/14 to [place] skilled. Liza Oneal, [employer]
[2022-03-07 13:37] VITALS: BMI 26.5
[2022-03-07 21:56] VITALS: BP 128/70; PULSE 82
[2022-03-07] MEDS: MELATONIN 3 MG TABLET PO (21:56)
[2022-03-07] MEDS: Atorvastatin Calcium 80 MG Tablet PO (21:56)
[2022-03-07 22:00] VITALS: BP 117/69; PULSE 71; RESP 16; TEMP 36.6; O2SAT 100
[2022-03-08 04:33] VITALS: BMI 26.5
[2022-03-08] MEDS: Arthritis Pain Compound 60 CLICK TUBE TOPICAL ×3 (05:29→19:50)
[2022-03-08] MEDS: Menthol/Lanolin/Calamine/Znox 113 GM Tube 1 APPLIC TOPICAL ×2 (05:29→21:34)
[2022-03-08 05:40] LABS: Absolute Lymphocyte Count 0.96 X10^3/uL (0.83-4.51); Absolute Neutrophil Count 2.3 X10^3/uL (2.0-7.7); Basophil# 0.03 X10^3/uL; Basophil% 0.8 % (0-1); Eosinophil# 0.16 X10^3/uL; Eosinophils% 4.2 % (0-5); Hematocrit 32.5 % (40-54); Hemoglobin 10.7 g/dL (13.0-16.5); Lymphocyte # 0.96 X10^3/ul (0.83-4.51); Lymphocyte % 24.9 % (19-41); Mean Corp Hgb Conc 32.9 g/dL (32-36); Mean Corpuscular Hgb 30.5 pg (27.0-32.0); Mean Corpuscular Volume 92.6 fL (80-94); Mean Platelet Vol. 9.5 fl (6.2-12.0); Monocyte# 0.41 X10^3/uL; Monocyte% 10.6 % (0-10); NRBC Flagged by Analyzer 0 % (0-5); Neutrophil # 2.27 X10^3/uL (2.7-7.7); Platelet Count 281 K/mm3 (150-450); RBC Distribution Width CV 15.1 % (11.6-14.6); RBC Distribution Width SD 50.5 fl (35.1-43.9); Red Blood Count 3.51 M/mm3 (4.6-6.2); White Blood Count 3.9 K/mm3 (4.4-11.0)
[2022-03-08 07:30] VITALS: BP 105/61; PULSE 67; RESP 18; TEMP 36.3; O2SAT 98
[2022-03-08 08:02] VITALS: PULSE 74
[2022-03-08] MEDS: Metoprolol Tartrate 50 MG Tablet PO ×2 (08:02→19:49)
[2022-03-08] MEDS: APIXABAN 5 MG TABLET PO ×2 (08:02→19:49)
[2022-03-08] MEDS: Tamsulosin HCl 0.4 MG Capsule PO (08:02)
[2022-03-08] MEDS: dilTIAZem CD 120 MG Capsule PO (08:02)
[2022-03-08] MEDS: Clopidogrel Bisulfate 75 MG Tablet PO (08:02)
[2022-03-08] MEDS: Pantoprazole Sodium 40 MG Tablet PO ×2 (08:02→19:49)
[2022-03-08 16:29] VITALS: BMI 26.5
[2022-03-08 19:21] VITALS: BP 106/58; PULSE 66; RESP 18; TEMP 36.6; O2SAT 99
[2022-03-08 19:49] VITALS: BP 106/58; PULSE 66
[2022-03-08] MEDS: Atorvastatin Calcium 80 MG Tablet PO (19:49)
[2022-03-08] MEDS: MELATONIN 3 MG TABLET PO (19:50)
[2022-03-09] MEDS: Arthritis Pain Compound 60 CLICK TUBE TOPICAL ×3 (04:53→20:27)
[2022-03-09] MEDS: Menthol/Lanolin/Calamine/Znox 113 GM Tube 1 APPLIC TOPICAL ×2 (04:53→20:28)
[2022-03-09 06:22] LABS: Absolute Lymphocyte Count 0.94 X10^3/uL (0.83-4.51); Absolute Neutrophil Count 2.2 X10^3/uL (2.0-7.7); Basophil# 0.02 X10^3/uL; Basophil% 0.5 % (0-1); Eosinophil# 0.16 X10^3/uL; Eosinophils% 4.1 % (0-5); Hematocrit 35.2 % (40-54); Hemoglobin 11.3 g/dL (13.0-16.5); Lymphocyte # 0.94 X10^3/ul (0.83-4.51); Lymphocyte % 24.4 % (19-41); Mean Corp Hgb Conc 32.1 g/dL (32-36); Mean Corpuscular Hgb 30.5 pg (27.0-32.0); Mean Corpuscular Volume 94.9 fL (80-94); Mean Platelet Vol. 9.8 fl (6.2-12.0); Monocyte# 0.54 X10^3/uL; NRBC Flagged by Analyzer 0 % (0-5); Neutrophil # 2.17 X10^3/uL (2.7-7.7); Neutrophil % 56.2 % (47-70); Platelet Count 285 K/mm3 (150-450); RBC Distribution Width CV 15.4 % (11.6-14.6); Red Blood Count 3.71 M/mm3 (4.6-6.2); White Blood Count 3.9 K/mm3 (4.4-11.0)
[2022-03-09 08:00] VITALS: BP 122/55; PULSE 74; RESP 20; TEMP 36.4; O2SAT 96
[2022-03-09 08:01] VITALS: PULSE 74
[2022-03-09] MEDS: Tamsulosin HCl 0.4 MG Capsule PO (08:01)
[2022-03-09] MEDS: Pantoprazole Sodium 40 MG Tablet PO ×2 (08:01→20:28)
[2022-03-09] MEDS: Metoprolol Tartrate 50 MG Tablet PO ×2 (08:01→20:27)
[2022-03-09] MEDS: APIXABAN 5 MG TABLET PO ×2 (08:01→20:28)
[2022-03-09] MEDS: Clopidogrel Bisulfate 75 MG Tablet PO (08:01)
[2022-03-09] MEDS: dilTIAZem CD 120 MG Capsule PO (08:01)
[2022-03-09 11:11] VITALS: BMI 26.5
[2022-03-09 19:50] VITALS: BP 127/68; PULSE 77; RESP 16; TEMP 37.1; O2SAT 96; BMI 26.5
[2022-03-09 20:27] VITALS: BP 127/68; PULSE 77
[2022-03-09] MEDS: Atorvastatin Calcium 80 MG Tablet PO (20:27)
[2022-03-09] MEDS: MELATONIN 3 MG TABLET PO (20:28)
[2022-03-10 05:04] LABS: Absolute Lymphocyte Count 0.95 X10^3/uL (0.83-4.51); Absolute Neutrophil Count 2.3 X10^3/uL (2.0-7.7); Basophil# 0.03 X10^3/uL; Basophil% 0.8 % (0-1); Eosinophil# 0.14 X10^3/uL; Eosinophils% 3.6 % (0-5); Hematocrit 33.9 % (40-54); Hemoglobin 10.5 g/dL (13.0-16.5); Lymphocyte # 0.95 X10^3/ul (0.83-4.51); Lymphocyte % 24.2 % (19-41); Mean Corpuscular Hgb 29.5 pg (27.0-32.0); Mean Corpuscular Volume 95.2 fL (80-94); Monocyte# 0.46 X10^3/uL; Monocyte% 11.7 % (0-10); NRBC Flagged by Analyzer 0 % (0-5); Neutrophil # 2.32 X10^3/uL (2.7-7.7); Neutrophil % 58.9 % (47-70); Platelet Count 272 K/mm3 (150-450); RBC Distribution Width CV 15.5 % (11.6-14.6); RBC Distribution Width SD 54.4 fl (35.1-43.9); Red Blood Count 3.56 M/mm3 (4.6-6.2); White Blood Count 3.9 K/mm3 (4.4-11.0)
[2022-03-10] MEDS: Arthritis Pain Compound 60 CLICK TUBE TOPICAL ×3 (05:38→20:29)
[2022-03-10] MEDS: Menthol/Lanolin/Calamine/Znox 113 GM Tube 1 APPLIC TOPICAL ×2 (05:39→20:30)
[2022-03-10 07:25] VITALS: BP 128/72; PULSE 84; RESP 16; TEMP 36.6; O2SAT 96
[2022-03-10 07:51] VITALS: PULSE 84
[2022-03-10] MEDS: Metoprolol Tartrate 50 MG Tablet PO ×2 (07:51→20:30)
[2022-03-10] MEDS: dilTIAZem CD 120 MG Capsule PO (07:51)
[2022-03-10] MEDS: Clopidogrel Bisulfate 75 MG Tablet PO (07:51)
[2022-03-10] MEDS: Pantoprazole Sodium 40 MG Tablet PO ×2 (07:51→20:30)
[2022-03-10] MEDS: Tamsulosin HCl 0.4 MG Capsule PO (07:51)
[2022-03-10] MEDS: APIXABAN 5 MG TABLET PO ×2 (07:51→20:30)
[2022-03-10 10:50] VITALS: BMI 26.5
--- NOTE | 2022-03-10 11:12 | PN_ITS ---
Subjective Subjective Afebrile VSS-blood pressure and heart rate are well controlled. Maintaining appropriate oxygen saturation on RA Oral intake is good Remains incontinent of stool and urine. Discussed with nursing - no problems that need addressed Reviewed the PT/OT/ST notes Medication list reviewed. All lab from today was personally reviewed. White blood cell count remains low at 3.9 and the hemoglobin is 10.5 with a platelet count of 272,000. Denies CP, SOB, palpitations, lightheadedness, abd pain, D/C/N/V, dysuria and c gavino pain. He is lying in bed watching TV and he appears in no significant distress. Objective Data Objective Data Vital Signs: Vital Signs Temp Pulse Resp BP Pulse Ox O2 Del Method 97.8 F 84 16 128/72 H 96 Room Air 03/10/22 07:25 03/10/22 07:51 03/10/22 07:25 03/10/22 07:25 03/10/22 07:25 03/10/22 07:25 Oxygen Delivery Method Room Air Weight: 172 lb 9.951 oz Body Mass Index (BMI) 26.5 Intake & Output: Intake and Output for Last 24 Hours 03/08/22 03/09/22 03/10/22 23:59 23:59 23:59 Intake Total 1290 / 1290 1110 / 1110 700 / 700 Output Total 200 / 200 Balance 1090 / 1090 1110 / 1110 700 / 700 Lab / Micro Data Result Diagrams: 03/10/22 04:13 03/11/22 04:18 Labs: Laboratory Results - last 24 hr 03/10/22 04:13: WBC 3.9 L, RBC 3.56 L, Hgb 10.5 L, Hct 33.9 L, MCV 95.2 H, MCH 29.5, MCHC 31.0 L, RDW Std Deviation 54.4 H, RDW Coeff of Juan 15.5 H, Plt Count 272, MPV 10.0, Immature Gran % (Auto) 0.800, Neut % (Auto) 58.9, Lymph % (Auto) 24.2, Navarro % (Auto) 11.7 H, Eos % (Auto) 3.6, Baso % (Auto) 0.8, Absolute Neuts (auto) 2.3, Absolute Lymphs (auto) 0.95, Nucleated RBC % 0 Micro: Microbiology 02/23/22 11:55 Stool Stool Occult Blood (DAVID) - Final Physical Exam Const alert and no apparent distress Eyes PERRL and EOMs intact bilaterally Resp normal respiratory effort and clear to auscultation bilaterally Effort and Inspection: Negative for tachypneic or respiratory distress Cardio no gallops Cardio Narrative: Remains in atrial fibrillation with an irregular irregular rhythm but the rate is well controlled. GI normal to inspection, nondistended, normoactive bowel sounds and soft to palpation Extremity no calf tenderness General Extremity: Negative for cyanosis or edema Skin General Skin Exam: no breakdown Rashes: no rashes Neuro Neuro Narrative: Left facial droop. I reviewed the PT and OT notes and he is progressing with increased movement in the RUE and the RLE. Voice is strong and he can easily be heard when I am standing several feet away. Minimal slurring. Psych cooperative and affect normal Assessment & Plan Assessment/Plan (1) Debility: (2) Acute ischemic left MCA stroke: (3) Leukopenia: (4) Atrial fibrillation: PLAN: Plan 1. Continue therapy 2. I am concerned about the leukopenia which is new........more likely than not due to a medication. The only new medication that is associated with Leukopenia is Diltiazem. Will DC the diltiazem. If the HR increases with change the Metoprolol to Q8H. 3. BMP in the AM 4. Recheck CBC in 1 week Charges/Coding Visit Charges Inpatient E&M: 27387 Subs Hosp L2
[2022-03-10 20:30] VITALS: BP 112/60; PULSE 81
[2022-03-10] MEDS: traZODone 50 MG Tablet PO (20:30)
[2022-03-10] MEDS: Atorvastatin Calcium 80 MG Tablet PO (20:30)
[2022-03-10 20:36] VITALS: BP 112/60; PULSE 81; RESP 18; TEMP 36.4; O2SAT 97
--- NOTE | 2022-03-11 02:00 | NURSING ---
pt inc of a large amt of urine, bladder scanned for 468ml, st cathed for 450ml
[2022-03-11 03:05] VITALS: BMI 26.5
[2022-03-11] MEDS: Arthritis Pain Compound 60 CLICK TUBE TOPICAL ×3 (05:26→21:10)
[2022-03-11] MEDS: Menthol/Lanolin/Calamine/Znox 113 GM Tube 1 APPLIC TOPICAL ×2 (05:27→21:10)
[2022-03-11 06:28] LABS: Albumin, Serum 2.5 g/dL (3.2-5.0); Anion Gap 7 (5-15); BUN 20 mg/dL (7-18); BUN/Creat Ratio 25.5 RATIO (10-20); Calcium,Total 9.5 mg/dL (8.5-10.1); Chloride 105 mmol/L (98-107); Creatinine, Serum 0.78 mg/dL (0.70-1.30); EST Glomerular Filtration Rate 102 mL/min (>60); Est Glom Filt Rate - Afr Amer 123 mL/min (>60); Estimated Creatinine Clearance 62.86 ml/min; Glucose 102 mg/dL (74-106); Sodium Level 138 mmol/L (136-145)
[2022-03-11] MEDS: Tamsulosin HCl 0.4 MG Capsule PO (07:44)
[2022-03-11 07:45] VITALS: BP 128/74; PULSE 60
[2022-03-11] MEDS: Pantoprazole Sodium 40 MG Tablet PO ×2 (07:45→21:09)
[2022-03-11] MEDS: Metoprolol Tartrate 50 MG Tablet PO ×2 (07:45→21:09)
[2022-03-11] MEDS: Clopidogrel Bisulfate 75 MG Tablet PO (07:45)
[2022-03-11] MEDS: APIXABAN 5 MG TABLET PO ×2 (07:45→21:09)
[2022-03-11 08:54] VITALS: BP 122/76; PULSE 77; RESP 16; TEMP 36.5; O2SAT 96
[2022-03-11 09:22] VITALS: PULSE 64
[2022-03-11 16:19] VITALS: BMI 26.5
[2022-03-11 19:36] VITALS: BP 124/65; PULSE 87; RESP 16; TEMP 36.8; O2SAT 99
[2022-03-11 21:09] VITALS: BP 124/65; PULSE 87
[2022-03-11] MEDS: Atorvastatin Calcium 80 MG Tablet PO (21:09)
[2022-03-11] MEDS: traZODone 50 MG Tablet PO (21:09)
[2022-03-11 21:10] VITALS: O2SAT 98
[2022-03-12] MEDS: Menthol/Lanolin/Calamine/Znox 113 GM Tube 1 APPLIC TOPICAL ×2 (06:06→21:58)
[2022-03-12] MEDS: Arthritis Pain Compound 60 CLICK TUBE TOPICAL ×3 (06:06→21:58)
[2022-03-12 07:45] VITALS: BP 124/69; PULSE 88; RESP 16; TEMP 36.7; O2SAT 96
[2022-03-12 09:29] VITALS: PULSE 67
[2022-03-12] MEDS: Pantoprazole Sodium 40 MG Tablet PO ×2 (09:29→21:57)
[2022-03-12] MEDS: Metoprolol Tartrate 50 MG Tablet PO ×2 (09:29→21:57)
[2022-03-12] MEDS: Clopidogrel Bisulfate 75 MG Tablet PO (09:29)
[2022-03-12] MEDS: Tamsulosin HCl 0.4 MG Capsule PO (09:29)
[2022-03-12] MEDS: APIXABAN 5 MG TABLET PO ×2 (09:29→21:57)
[2022-03-12 13:18] VITALS: BMI 26.5
--- NOTE | 2022-03-12 15:37 | PCM.PROGNOTE ---
Subjective Subjective Afebrile VSS - The HR is well controlled even with the discontinuation of the Diltiazem. Maintaining appropriate oxygen saturation on RA Oral intake is good Discussed with nursing - no problems that need addressed Reviewed the PT/OT/ST notes Medication list reviewed. All lab from yesterday was personally reviewed. Creat is stable and the ELYTES are WNL. HE now knows when he has to use the restroom but, he is sometimes incontinent of urine prior to getting to the toilet. Art denies chest pain, lightheadedness, palpitations, shortness of breath, dysuria, left shoulder pain, calf pain. Objective Data Objective Data Vital Signs: Vital Signs Temp Pulse Resp BP Pulse Ox O2 Del Method 98.1 F 67 16 124/69 H 96 Room Air 03/12/22 07:45 03/12/22 09:29 03/12/22 07:45 03/12/22 07:45 03/12/22 07:45 03/12/22 07:45 Oxygen Delivery Method Room Air Weight: 171 lb 4.787 oz Body Mass Index (BMI) 26.5 Intake & Output: Intake and Output for Last 24 Hours 03/10/22 03/11/22 03/12/22 23:59 23:59 23:59 Intake Total 1650 / 1650 2170 / 2170 780 / 780 Output Total 600 / 600 1000 / 1000 600 / 600 Balance 1050 / 1050 1170 / 1170 180 / 180 Lab / Micro Data Result Diagrams: 03/10/22 04:13 03/11/22 04:18 Micro: Microbiology 02/23/22 11:55 Stool Stool Occult Blood (DAVID) - Final Physical Exam Const alert and no apparent distress Constitutional Narrative: voice is much stronger than at admission and Slurring has markedly improved. Denies pain in the left shoulder. Resp normal respiratory effort and clear to auscultation bilaterally Cardio Cardio Narrative: Irregular irregular with controlled ventricular response. No gallop. GI normal to inspection, nondistended, normoactive bowel sounds and soft to palpation GI Narrative: No guarding with palpation. Extremity no calf tenderness General Extremity: Negative for edema Skin General Skin Exam: no breakdown Rashes: no rashes Assessment & Plan Assessment/Plan (1) Debility: (2) Acute ischemic left MCA stroke: (3) Right hemiplegia: (4) Atrial fibrillation: (5) Leukopenia: PLAN: Plan 1. Check a UA to make sure the urinary urgency is not due to a UTI. 2. Continue therapy 3. Recheck a CBC Friday to see if the Leukopenia has resolved with the discontinuation of diltiazem. 4. Plan on SNF at [place] on 03/14/22. Charges/Coding Visit Charges Inpatient E&M: 29913 Subs Hosp L2
[2022-03-12 19:00] VITALS: BP 125/61; PULSE 75; RESP 16; TEMP 36.6; O2SAT 97
[2022-03-12 21:57] VITALS: PULSE 73
[2022-03-12] MEDS: Atorvastatin Calcium 80 MG Tablet PO (21:57)
[2022-03-12] MEDS: traZODone 50 MG Tablet PO (21:57)
[2022-03-12 22:42] VITALS: BMI 26.5
[2022-03-13] MEDS: Arthritis Pain Compound 60 CLICK TUBE TOPICAL ×2 (05:19→21:48)
[2022-03-13] MEDS: Menthol/Lanolin/Calamine/Znox 113 GM Tube 1 APPLIC TOPICAL ×2 (05:20→22:12)
[2022-03-13 05:46] LABS: Hematocrit 36.7 % (40-54); Hemoglobin 11.7 g/dL (13.0-16.5); Mean Corp Hgb Conc 31.9 g/dL (32-36); Mean Corpuscular Hgb 30.4 pg (27.0-32.0); Mean Corpuscular Volume 95.3 fL (80-94); Mean Platelet Vol. 10.1 fl (6.2-12.0); Platelet Count 267 K/mm3 (150-450); RBC Distribution Width CV 15.8 % (11.6-14.6); RBC Distribution Width SD 55.1 fl (35.1-43.9); Red Blood Count 3.85 M/mm3 (4.6-6.2); White Blood Count 4.3 K/mm3 (4.4-11.0)
[2022-03-13 06:27] LABS: Bacteria 0 SEEN /hpf (None Seen); Mucous, Urine 0 SEEN /hpf (<or=2+); Red Blood Cells-Urine 0 SEEN /hpf (0-5); Squamous Epithelial Cells - UA 0 SEEN /hpf (0-5); White Blood Cells 0 SEEN /hpf (0-5)
[2022-03-13 06:44] LABS: Color, Urine Yellow (Yellow); Glucose, Dipstick Normal (Normal); Ketone-Dipstick Negative (Negative); Leukocyte Esterase-Dipstick 25 /ul (Negative); Nitrite-Dipstick Negative (Negative); Occult Blood-Urine Negative /ul (Negative); Protein-Dipstick Negative (Negative); Urine Bilirubin Dipstick Negative (Negative); Urine Clarity Clear (Clear); Urine Urobilinogen Normal (Normal)
[2022-03-13 07:41] VITALS: BP 141/75; PULSE 89; RESP 18; TEMP 36.2; O2SAT 97
--- NOTE | 2022-03-13 08:46 | CASEMGMT ---
Addendum entered by Liza Oneal 03/13/22 12:43: [place] Summary completed - uploaded to [employer]. Submitted 7000. Send [place] Summary and 7000 to [facility] via [facility] Original Note: Social Work 7000 started in [facility] Liza Oneal, JAMES EMJIAW
[2022-03-13 09:32] VITALS: BP 141/75; PULSE 89
[2022-03-13] MEDS: Tamsulosin HCl 0.4 MG Capsule PO (09:32)
[2022-03-13] MEDS: Metoprolol Tartrate 50 MG Tablet PO ×2 (09:32→21:48)
[2022-03-13] MEDS: Pantoprazole Sodium 40 MG Tablet PO ×2 (09:32→21:48)
[2022-03-13] MEDS: APIXABAN 5 MG TABLET PO ×2 (09:32→21:48)
[2022-03-13] MEDS: Clopidogrel Bisulfate 75 MG Tablet PO (09:32)
--- NOTE | 2022-03-13 10:57 | TREXTCAR_ITS ---
Diet Diet Order/Speech Therapy: 02/28/22 09:55 Diet: Cardiac - Heart Healthy Food consistency:: Mechanical (Minced/Moist) Liquid Consistency:: Regular/Thin Type of Dietary Supplement:: Ensure Plus High Protein Is pt able to select menu?: Yes Diet Comments: 120ml lang ensure+ TID w/ meals; magic cup w/ lunch; ES pud w/ dinner Routine Orders/Code Status Enema Type: Fleetz Enema Frequency: Daily PRN Suppository Type: Dulcolax 10mg Suppository Frequency: Daily PRN O2 Liters per Minute: 1-2 O2 Frequency: PRN Keep PO Greater than or Equal to (%): 89 Routine Lab Work: CBC (1 week) Code Status: DNC Wound(s) rt upper arm: Wound Type: old IV wound end of nose: Wound Type: Abrasion lt shoulder: Wound Type: Surgical Incision Therapies Weight Bearing: Weight bearing as tolerated (LUE) Extremity Affected:: RUE/RLE Physical Therapy: Eval and Treat Occupational Therapy: Eval and Treat Speech Therapy: Eval and Treat Problem/Diagnosis (1) Debility: Status: Acute Code(s): R53.81 - Other malaise Plan: Due to embolic L MCA CVA when he was off anticoagulation for L shoulder surgery. He received TNK and had a L ICA thrombectomy. (2) Acute ischemic left MCA stroke: Status: Acute Code(s): I63.512 - Cerebral infarction due to unspecified occlusion or stenosis of left middle cerebral artery (3) Atrial fibrillation: Status: Acute Code(s): I48.91 - Unspecified atrial fibrillation Plan: On Eliquis. (4) Dysphagia: Status: Acute Code(s): R13.10 - Dysphagia, unspecified Plan: Good improvement following dilation of the esophagus. (5) Right hemiplegia: Status: Acute Code(s): G81.91 - Hemiplegia, unspecified affecting right dominant side (6) History of left common carotid artery stent placement: Status: Acute Code(s): Z98.890 - Other specified postprocedural states; Z95.828 - Presence of other vascular implants and grafts (7) GERD with esophagitis: Status: Acute Code(s): K21.00 - Gastro-esophageal reflux disease with esophagitis, without bleeding (8) Esophageal stenosis: Status: Acute Code(s): K22.2 - Esophageal obstruction (9) Barretts esophagus: Status: Acute Code(s): K22.70 - Ortiz's esophagus without dysplasia Plan: On Protonix 40 mg BID for 8 weeks starting 02/28/22. (10) Status post dilation of esophageal narrowing: Status: Acute Code(s): Z98.890 - Other specified postprocedural states; Z87.19 - Personal history of other diseases of the digestive system Plan: Will need to follow up with Dr. Garcia following DC from rehab. (11) Eosinophilic esophagitis: Status: Suspected Code(s): K20.0 - Eosinophilic esophagitis Comment: No eosinophils on path report (12) Fecal incontinence: Status: Acute Code(s): R15.9 - Full incontinence of feces Plan: He is starting to be able to tell nursing when he has to have a BM and has been going on the BSC prior to DC. Benefits from regular toileting attempts. (13) Urinary incontinence: Status: Acute Code(s): R32 - Unspecified urinary incontinence Plan: UA today is negative for pyuria and no bacteria seen. (14) Urine retention: Status: Acute Code(s): R33.9 - Retention of urine, unspecified Plan: This got worse with the addition of Trazodone to the drug regimen for complaints of insomnia. Trazodone has been discontinued. Doxazosin was added at HS, 1 mg. Also on Flomax. Was orthostatic early in the admission to rehab but, this was related to dehydration and has resolved now that he is better hydrated. Denies lightheadedness at the time of DC for rehab. (15) Insomnia: Status: Acute Code(s): G47.00 - Insomnia, unspecified Plan: Sporadic. Failed Melatonin. (16) Normochromic normocytic anemia: Status: Acute Code(s): D64.9 - Anemia, unspecified Plan: HGBA has been improving and at the time of DC the HGB is 11.7, up from 9.3 on the 20 of February. (17) Leukopenia: Status: Acute Code(s): D72.819 - Decreased white blood cell count, unspecified Plan: Suspect due to Diltiazem. WBC count is coming up with discontinuation of the drug on 03/11/22. Heart rate remains well controlled on metoprolol alone. Plan 1. DC to longterm. 2. Recheck CBC in 1 week. 3. Check orthostatic VS daily X 3 days post DC from rehab. 4. Straight cath PRN for PVR > 250. 5. NWB on the LUE until his orthopedic surgeon advances weight bearing. Allergies/Procedures Done in Hospital Allergies No Known Allergies Allergy (Verified 02/19/22 15:43) Procedures: EGD (By Dr. Garcia on 02/28/22 with esophageal dilation. ) Type of Care/Length of Stay Estimated LOS: More Than 30 Days Type of Care Needed: Skilled Rehab Potential: Fair (I suspect when he is allowed to bear wt on the LUE he will start to progress with therapy. ) Prognosis: Fair (Has done very well with ST but, progress with PT and OT is limited due to the fact that the RUE is very weak from the stroke and he is NWB on the LUE due to recent shoulder surgery. ) Additional Orders/Day of Discharge H&P will serve as current which was dated: 03/22/22 Day of Discharge: 03/14/22 Dietary and Speech Recommendations Dietitian Recommendations/Changes: Continue cardiac diet with consistency as per REPAIR SERVICE DISPATCHER; monitor need to restrict carbohydrates. Will add 120 ml chocolate ensure plus high protein TID w/ meals. Will adjust ONS to magic cup with lunch and ensure pudding with dinner. Trend weights closely ? accuracy of 78.5 Kg on 03/06. If weight continues to decline, risk for malnutrition increases. Speech Linguistic Eval Summary: Informal Cognitive-Linguistic Evaluation - Oriented to name only via verbal response to questions. Able to select correct decade of age and month of from an array of 2 verbal choices. Automatic speech tasks completed w/ min cues to initiate. Repetition skills intact at the word and sentence level. Confrontation naming 60% accuracy. Auditory comprehension: answered yes/no orientation ?s re: self/environment w/ 90%, simple concepts w/ 100% and grammatically complex/comparison ?s w/ 70% accuracy. Executed 1 step commands w/ 100% accuracy, 2 step commands w/ 50% accuracy. This patient presents w/ mild dysarthria, moderate to severe expressive and mild to moderate receptive aphasia. Plan for further assessment of cognitive-linguistic function 02/21/22. Follow Up Care Please follow up with your Primary Care Physician in: in 1-2 weeks following DC from rehab When: Needs to follow up with neurology Please Follow Up With: Johnnie Garcia DO When: 6 weeks Discharge Plan Admission Admit Date/Time: 02/19/22 15:00 Primary Reason for Your Visit: post stroke debility Attending Provider: Janneth Varma Consulting Providers: Johnnie Garcia ; Lucien Gramajo Chi Discharge Orders/Prescriptions Prescriptions: New doxazosin 1 mg Tablet 1 mg PO QHS Qty: 0 0RF menthol-zinc oxide [Calmoseptine] 0.44-20.6 % Ointment 1 applic topical BID@0600,2200 Qty: 0 0RF Protocol: *Topical Application Instructions APPLICATION INSTRUCTIONS: apply to buttocks and coccyx sennosides-docusate sodium [Stool Softener-Stimulant Laxat] 8.6-50 mg Tablet 2 tab PO BID PRN (Reason: Constipation) Qty: 0 0RF pantoprazole 40 mg Tablet,Delayed Release (Dr/Ec) 40 mg PO BID Qty: 0 0RF Continued atorvastatin 80 mg Tablet 80 mg PO QHS acetaminophen [Tylenol] 325 mg Tablet 650 mg PO Q4H PRN (Reason: Pain) clopidogrel [Plavix] 75 mg Tablet 75 mg PO DAILY tamsulosin [Flomax] 0.4 mg Capsule 0.4 mg PO DAILY metoprolol tartrate 50 mg Tablet 50 mg PO Q12H Eliquis 5 mg Tablet 5 mg PO BID vit A-vit C-vit S-whvd-rpfail 7,160-113-100 [id number]-[id number] Tablet 1 tab PO DAILY Discontinued potassium chloride 25 mEq Packet 40 meq PO DAILY Disposition Disposition (needs filled in before D/C Order can be placed): [facility]
--- NOTE | 2022-03-13 11:45 | DS.PCM_ITS ---
Providers Date of Admission: 02/19/22 Date of Discharge: 03/14/22 Consultations 02/21/22 12:50 Consult: Gastroenterology Routine Consulting Provider: Johnnie Garcia Reason for Consult: choking on lunch, possible foreign mass removal needed EMERGENT Consult: No MD Notified: Yes Date Notified: 02/21/22 Time Notified: 12:50 Method of Notification: Verbal Reason For Visit: STROKE Diagnosis Discharge Diagnosis (1) Debility: Status: Acute Code(s): R53.81 - Other malaise Plan: Due to embolic L MCA CVA when he was off anticoagulation for L shoulder surgery. He received TNK and had a L ICA thrombectomy. (2) Acute ischemic left MCA stroke: Status: Acute Code(s): I63.512 - Cerebral infarction due to unspecified occlusion or stenosis of left middle cerebral artery Plan: Embolic, while off anticoagulation for AF, for recent Left shoulder replacement. (3) Atrial fibrillation: Status: Inactive Code(s): I48.91 - Unspecified atrial fibrillation Plan: On Eliquis. (4) Dysphagia: Status: Acute Code(s): R13.10 - Dysphagia, unspecified Plan: Good improvement following dilation of the esophagus. (5) Right hemiplegia: Status: Acute Code(s): G81.91 - Hemiplegia, unspecified affecting right dominant side (6) History of left common carotid artery stent placement: Status: Inactive Code(s): Z98.890 - Other specified postprocedural states; Z95.828 - Presence of other vascular implants and grafts (7) GERD with esophagitis: Status: Acute Code(s): K21.00 - Gastro-esophageal reflux disease with esophagitis, without bleeding (8) Esophageal stenosis: Status: Inactive Code(s): K22.2 - Esophageal obstruction (9) Barretts esophagus: Status: Acute Code(s): K22.70 - Ortiz's esophagus without dysplasia Plan: On Protonix 40 mg BID for 8 weeks starting 02/28/22. (10) Status post dilation of esophageal narrowing: Status: Inactive Code(s): Z98.890 - Other specified postprocedural states; Z87.19 - Personal history of other diseases of the digestive system Plan: Will need to follow up with Dr. Garcia following DC from rehab. (11) Fecal incontinence: Status: Resolved Code(s): R15.9 - Full incontinence of feces Plan: He is starting to be able to tell nursing when he has to have a BM and has been going on the BSC prior to DC. Benefits from regular toileting attempts. (12) Urinary incontinence: Status: Acute Code(s): R32 - Unspecified urinary incontinence Plan: UA today is negative for pyuria and no bacteria seen. (13) Urine retention: Status: Acute Code(s): R33.9 - Retention of urine, unspecified Plan: This got worse with the addition of Trazodone to the drug regimen for complaints of insomnia. Trazodone has been discontinued. Doxazosin was added at HS, 1 mg. Also on Flomax. Was orthostatic early in the admission to rehab but, this was related to dehydration and has resolved now that he is better hydrated. Denies lightheadedness at the time of DC for rehab. (14) Insomnia: Status: Acute Code(s): G47.00 - Insomnia, unspecified Plan: Sporadic. Failed Melatonin. (15) Normochromic normocytic anemia: Status: Acute Code(s): D64.9 - Anemia, unspecified Plan: HGBA has been improving and at the time of DC the HGB is 11.7, up from 9.3 on the 20 of February. (16) Leukopenia: Status: Acute Code(s): D72.819 - Decreased white blood cell count, unspecified Plan: Suspect due to Diltiazem. WBC count is coming up with discontinuation of the drug on 03/11/22. Heart rate remains well controlled on metoprolol alone. Plan 1. DC to nursing home. 2. Recheck CBC in 1 week. 3. Check orthostatic VS daily X 3 days post DC from rehab. 4. Straight cath PRN for PVR > 250. 5. NWB on the LUE until his orthopedic surgeon advances weight bearing. Medications at Discharge Home Medications acetaminophen 325 mg tablet (Tylenol) 650 mg PO Q4H PRN Pain 02/19/22 apixaban 5 mg tablet (Eliquis) 5 mg PO BID Check with primary doctor 02/19/22 atorvastatin 80 mg tablet 80 mg PO QHS cholesterol 02/19/22 clopidogrel 75 mg tablet (Plavix) 75 mg PO DAILY Check with primary doctor 02/19/22 metoprolol tartrate 50 mg tablet 50 mg PO BID BP 02/19/22 tamsulosin 0.4 mg capsule (Flomax) 0.4 mg PO DAILY retention 02/19/22 vit A 7,160 unit-vit C 113 mg-vit E 100 blpl-sidv-negckz tablet 1 tab PO DAILY Check with primary doctor 02/19/22 doxazosin 1 mg tablet 1 mg PO QHS urine 04/12/22 menthol 0.44 %-zinc oxide 20.6 % topical ointment (Calmoseptine) 1 applic topical BID@0600,2200 cream 04/12/22 pantoprazole 40 mg tablet,delayed release 40 mg PO BID heartburn 04/12/22 sennosides 8.6 mg-docusate sodium 50 mg tablet (Stool Softener-Stimulant Laxative) 1 tab PO QHS constipation 04/12/22 Hospital Course Operations None Procedures EGD (02/28/[address] Garcia with esophageal dilation. ) Summary of Care Provided Minutes Spent on Discharge: 45 Hospital Course: Jhonathan Cai is a 76 YO male with a PMH of AF, HLD, HTN, BPH, chronic intake regulation with Eliquis and DM II who had a L shoulder replacement at [facility]. Eliquis was on hold for the surgery. While off anticoagulation he had a left MCA stroke. He was given TNK and then transferred to [facility] for possible intervention.? CTA of the head and neck showed left cervical internal carotid artery occlusion with distal reconstitution then repeat occlusion at M2.? At [facility] he underwent a left ICA? thrombectomy and stent. He was transferred to the acute inpt rehab un it at [facility] on 02/19/22 for 3 hours of therapy daily to restore function at or near his level prior to the stroke. Art had dysphagia at presentation to rehab and on the morning of 02/21/22 while eating a turkey sandwich and food got stuck in his throat. He had long paroxysms of coughing. ?Dr. Garcia was consulted from GI. At the time of the consult the pt had recovered Dr. Garcia did not feel endoscopy was required but, he did recommend a repeat MBS.? He was transitioned to a pur?ed diet. A modified barium swallow was done on 02/26/2022 and there was flow obstruction and esophageal bolus retention due to a bar like protrusion from the posterior esophageal wall. Dr. Garcia was reconsulted and and EGD was done on 02/28/2022. There were esophageal mucosal changes consistent with eosinophilic esophagitis and biopsies were taken. There was a medium sized hiatal hernia and gastric mucosal atrophy. An esophageal dilation was done for stenosis. Patient was placed on Protonix 40 mg p.o. daily and is to remain on this dosage for 8 weeks. The distal esophageal biopsy showed no dysplasia. The gastroesophageal junction showed chronic inflammation with focal goblet cell metaplasia consistent with Ortiz's esophagus. Swallowing became much easier after the dilation and Mckinley's diet was slowly advanced to Minced and moist foods with thin liquids at the time of discharge from rehab. Mckinley was incontinent of urine and stool for most of the stay in rehab but, prior to [place] he became continent with BM's on the BSC. He knows when he has to urinate but, can not always make it to the BSC before urinating. A UA was checked and was negative for infection. Mckinley made good progress with ST but progress with OT and PT was limited by the R hemiplegia and the inability to use either of his arms. He still required maximum assistance with grooming, bathing and upper body dressing. He was total assistance with lower body dressing at discharge. He is also total assist with toileting and tub/shower transfer. Mckinley was transferred to [facility] at [place] for additional therapy. He may benefit from another admission to rehab when he is able to bear weight on the LUE. Physical Exam Const alert, oriented x3 and no apparent distress Constitutional Narrative: looks pale General Appearance: cooperative HEENT moist oral mucous membranes Eyes PERRL and EOMs intact bilaterally Neck supple General: trachea midline; Negative for lymphadenopathy Resp normal respiratory effort, normal air movement and clear to auscultation bilaterally Effort and Inspection: Negative for tachypneic or respiratory distress Cardio no gallops Cardio Narrative: Irregular irregular rhythm with good rate control. No gallop. GI normal to inspection, nondistended, normoactive bowel sounds, soft to palpation and non-tender GI Narrative: No guarding with palpation. Extremity no calf tenderness General Extremity: Negative for edema Skin General Skin Exam: no breakdown Rashes: no rashes Neuro Neuro Narrative: Left facial droop. I reviewed the PT and OT notes and he is progressing with increased movement in the RUE and the RLE. Voice is strong and he can easily be heard when I am standing several feet away. Minimal slurring. Psych thought process normal, cooperative and affect normal Psych Narrative: Thought process is quicker. Attitude: No agitated Activity / Motor Behavior: Negative for restless Weight / BMI Weight Weight: 171 lb 4.787 oz Body Mass Index (BMI) 26.5 ABG / Lab / Microbiology Data Result Diagrams: 03/13/22 05:32 03/11/22 04:18 Laboratory: Laboratory Results - last 24 hr 03/13/22 05:32: WBC 4.3 L, RBC 3.85 L, Hgb 11.7 L, Hct 36.7 L, MCV 95.3 H, MCH 30.4, MCHC 31.9 L, RDW Std Deviation 55.1 H, RDW Coeff of Juan 15.8 H, Plt Count 267, MPV 10.1 03/13/22 06:20: Urine Color Yellow, Urine Clarity Clear, Urine pH 7.0, Ur Specific [place] 1.010, Urine Protein Negative, Urine Glucose (UA) Normal, Urine Ketones Negative, Urine Occult Blood Negative, Urine Nitrite Negative, Urine Bilirubin Negative, Urine Urobilinogen Normal, Ur Leukocyte Esterase 25 H, Urine RBC 0 SEEN, Urine WBC 0 SEEN, Ur Squamous Epith Cells 0 SEEN, Urine Bacteria 0 SEEN, Urine Mucus 0 SEEN Microbiology: Microbiology 02/23/22 11:55 Stool Stool Occult Blood (DAVID) - Final Indicators for Scoring Admitted with or Primary Diagnosis of CVA/Stroke: Yes Hx of CVA/Stroke: Yes Modified Mercer Score MRS Score at time of Evaluation: 5-Severe disability Meaningful Use Info Meaningful Use Diagnoses (Choose all that apply): Ischemic CVA CVA Therapy Assessed for PT,OT and/or ST?: Yes Ischemic Stroke Antithrombotic order at d/c?: Yes Dx of Atrial fib/flutter?: Yes Anticoagulant at discharge?: Yes Statins at discharge?: Yes Primary Dx Acute Ischemic CVA?: Yes IV tPA ordered during stay?: No Reason IV t-PA not ordered: Procedure not Indicated Discharge Plan Admission Admit Date/Time: 02/19/22 15:00 Primary Reason for Your Visit: post stroke debility Attending Provider: Janneth Varma Consulting Providers: Johnnie Garcia ; Avila,Lucien Chi Discharge Orders/Prescriptions Prescriptions: Continued atorvastatin 80 mg Tablet 80 mg PO QHS acetaminophen [Tylenol] 325 mg Tablet 650 mg PO Q4H PRN (Reason: Pain) clopidogrel [Plavix] 75 mg Tablet 75 mg PO DAILY tamsulosin [Flomax] 0.4 mg Capsule 0.4 mg PO DAILY metoprolol tartrate 50 mg Tablet 50 mg PO BID Eliquis 5 mg Tablet 5 mg PO BID vit A-vit C-vit I-gnkp-dqexec 7,160-113-100 [id number]-vv-[id number] Tablet 1 tab PO DAILY Discontinued potassium chloride 25 mEq Packet 40 meq PO DAILY No Action doxazosin 1 mg tablet 1 mg PO QHS sennosides-docusate sodium [Stool Softener-Stimulant Laxat] 8.6-50 mg tablet 1 tab PO QHS pantoprazole 40 mg tablet,delayed release (DR/EC) 40 mg PO BID menthol-zinc oxide [Calmoseptine] 0.44-20.6 % ointment 1 applic topical BID@0600,2200 Protocol: *Topical Application Instructions APPLICATION INSTRUCTIONS: apply to buttocks and coccyx Referrals / Follow Up: Dr Dakota Clemente-Orthopedics [Other] - 03/19/22 1:[address] Soraya MusaEb-Hfp-[id number] [Other] (Please call and make pt a F/U appt for 1 month) Disposition Disposition (needs filled in before D/C Order can be placed): Nursing Home Fa cility Charges/Coding Visit Charges Inpatient E&M: 85244 Disch Hosp
[2022-03-13 12:08] VITALS: BMI 26.5
[2022-03-13 21:43] VITALS: BP 133/67; PULSE 89; RESP 16; TEMP 36.5; O2SAT 97
[2022-03-13 21:48] VITALS: PULSE 89
[2022-03-13] MEDS: Atorvastatin Calcium 80 MG Tablet PO (21:48)
[2022-03-13] MEDS: Doxazosin 1 MG Tablet PO (21:48)
[2022-03-13 23:45] VITALS: BMI 26.5
[2022-03-14] MEDS: Menthol/Lanolin/Calamine/Znox 113 GM Tube 1 APPLIC TOPICAL (06:04)
[2022-03-14] MEDS: Arthritis Pain Compound 60 CLICK TUBE TOPICAL ×2 (06:04→13:32)
[2022-03-14 08:01] VITALS: PULSE 67
[2022-03-14] MEDS: Clopidogrel Bisulfate 75 MG Tablet PO (08:01)
[2022-03-14] MEDS: Pantoprazole Sodium 40 MG Tablet PO (08:01)
[2022-03-14] MEDS: Metoprolol Tartrate 50 MG Tablet PO (08:01)
[2022-03-14] MEDS: APIXABAN 5 MG TABLET PO (08:01)
[2022-03-14 08:20] VITALS: BP 128/77; PULSE 67; RESP 16; TEMP 36.4; O2SAT 96
[2022-03-14 09:00] VITALS: BP 107/58; BP 111/64; BP 112/54; PULSE 104; PULSE 78; PULSE 82
[2022-03-14 09:13] VITALS: O2SAT 98
--- NOTE | 2022-03-14 09:55 | NURSING ---
Tasneem for Dr. Lira's office to schedule f/u appt. Waiting for return call.
[2022-03-14 11:44] VITALS: BP 112/65; PULSE 88; RESP 18; TEMP 36.3; O2SAT 97
--- NOTE | 2022-03-14 13:38 | NURSING ---
Report called to [facility], spoke with nurse Man.
== END 2022-03-14 14:18 | disposition skilled nursing facility (03) | DRG 57 ==
PROVIDERS: Internal Medicine Gastroenterology; Admitting Provider Family Medicine Geriatric Medicine; Visit Provider Internal Medicine
PROC: 0DJ08ZZ Inspection of Upper Intestinal Tract, Via Natural or Artificial Opening Endoscopic (ICD-10-PCS; CPT 43235; principal; 2022-02-28 06:25)
DX: I69.351 Hemiplegia and hemiparesis following cerebral infarction affecting right dominant side (principal); K22.2 Esophageal obstruction; E11.9 Type 2 diabetes mellitus without complications; D64.9 Anemia, unspecified; E78.5 Hyperlipidemia, unspecified; G47.00 Insomnia, unspecified; I48.91 Unspecified atrial fibrillation; K21.00 Gastro-esophageal reflux disease with esophagitis, without bleeding; K44.9 Diaphragmatic hernia without obstruction or gangrene; K22.70 Barrett's esophagus without dysplasia; I10 Essential (primary) hypertension; L22 Diaper dermatitis; I69.392 Facial weakness following cerebral infarction; I69.320 Aphasia following cerebral infarction; R15.9 Full incontinence of feces; Z79.01 Long term (current) use of anticoagulants; Z87.891 Personal history of nicotine dependence; R13.10 Dysphagia, unspecified; Z79.02 Long term (current) use of antithrombotics/antiplatelets; Z79.899 Other long term (current) drug therapy; N40.0 Benign prostatic hyperplasia without lower urinary tract symptoms; R32 Unspecified urinary incontinence
CPT/HCPCS: 36415; 71046; 74230; 80048; 80053; 81001; 82040; 82274; 82962; 83735; 84100; 85014; 85018; 85025; 85027; 88305; 88313; 88341; 88342; 92507; 92523; 92526; 92611; 97110; 97112; 97116; 97140; 97162; 97166; 97530; 97535; 97802; 97803; J7120; A4216; C1769; J2405

== ENCOUNTER 2022-04-12 11:20 | Inpatient (IN) | payer MEDICARE, SELFPAY, OTHER ==
[2022-04-12 11:46] VITALS: BP 113/75; PULSE 83; RESP 18; TEMP 36.8; O2SAT 98; BMI 24.3
--- NOTE | 2022-04-12 16:31 | NURSING ---
Patient verified he wants to be a full code and very pleasant and cooperative. Aware of how to use call quan.
[2022-04-12 17:12] VITALS: O2SAT 98
[2022-04-12] MEDS: Ensure Plus High Protein 120 ML LIQUID PO ×2 (17:57→22:14)
[2022-04-12 19:38] VITALS: BP 131/82; PULSE 88; RESP 19; TEMP 36.9; O2SAT 96
[2022-04-12 22:00] VITALS: O2SAT 96
[2022-04-12 22:14] VITALS: BP 131/82; PULSE 88
[2022-04-12] MEDS: Senna/Docusate Sodium 1 Tablet PO (22:14)
[2022-04-12] MEDS: APIXABAN 5 MG TABLET PO (22:14)
[2022-04-12] MEDS: Metoprolol Tartrate 50 MG Tablet PO (22:14)
[2022-04-12] MEDS: Menthol/Lanolin/Calamine/Znox 113 GM Tube 1 APPLIC TOPICAL (22:14)
[2022-04-12] MEDS: Pantoprazole Sodium 40 MG Tablet PO (22:15)
[2022-04-12] MEDS: Doxazosin 1 MG Tablet PO (22:15)
[2022-04-12] MEDS: Atorvastatin Calcium 80 MG Tablet PO (22:15)
[2022-04-13] MEDS: Menthol/Lanolin/Calamine/Znox 113 GM Tube 1 APPLIC TOPICAL ×2 (06:12→22:14)
[2022-04-13 08:19] LABS: Hematocrit 38.7 % (40-54); Hemoglobin 12.3 g/dL (13.0-16.5); Mean Corp Hgb Conc 31.8 g/dL (32-36); Mean Corpuscular Hgb 28.9 pg (27.0-32.0); Mean Corpuscular Volume 91.1 fL (80-94); Platelet Count 210 K/mm3 (150-450); RBC Distribution Width CV 15.4 % (11.6-14.6); RBC Distribution Width SD 51.7 fl (35.1-43.9); Red Blood Count 4.25 M/mm3 (4.6-6.2); White Blood Count 4.6 K/mm3 (4.4-11.0)
[2022-04-13 08:30] VITALS: BP 134/79; PULSE 80; RESP 16; TEMP 36.2; O2SAT 96
[2022-04-13 08:45] LABS: ALB/GLOB Ratio 0.7 RATIO (0.9-2.4); AST(SGOT) 14 U/L (15-37); Alanine Aminotransfer ALT/SGPT 18 U/L (16-61); Albumin, Serum 2.6 g/dL (3.2-5.0); Alkaline Phosphatase 87 U/L (45-117); Anion Gap 7 (5-15); BUN 16 mg/dL (7-18); BUN/Creat Ratio 18.6 RATIO (10-20); Calcium,Total 8.9 mg/dL (8.5-10.1); Chloride 106 mmol/L (98-107); Creatinine, Serum 0.86 mg/dL (0.70-1.30); EST Glomerular Filtration Rate 92 mL/min (>60); Est Glom Filt Rate - Afr Amer 111 mL/min (>60); Estimated Creatinine Clearance 73.09 ml/min; Globulin 3.5 g/dL (2.2-4.2); Glucose 149 mg/dL (74-106); Magnesium 1.9 mg/dL (1.6-2.6); Phosphorus 3.1 mg/dL (2.5-4.9); Potassium 3.1 mmol/L (3.5-5.1); Protein, Total 6.1 g/dL (6.4-8.2); Sodium Level 140 mmol/L (136-145)
[2022-04-13] MEDS: Potassium Chloride Oral Tablet 20 MEQ 40 MEQ PO (10:50)
[2022-04-13 10:51] VITALS: PULSE 76
[2022-04-13] MEDS: Tamsulosin HCl 0.4 MG Capsule PO (10:51)
[2022-04-13] MEDS: Clopidogrel Bisulfate 75 MG Tablet PO (10:51)
[2022-04-13] MEDS: APIXABAN 5 MG TABLET PO ×2 (10:51→22:15)
[2022-04-13] MEDS: Pantoprazole Sodium 40 MG Tablet PO ×2 (10:51→22:17)
[2022-04-13] MEDS: Metoprolol Tartrate 50 MG Tablet PO ×2 (10:51→22:16)
[2022-04-13] MEDS: Multivitamin (Healthy Eyes) Capsule 1 CAP PO (10:51)
[2022-04-13] MEDS: Ensure Plus High Protein 120 ML LIQUID PO ×3 (11:01→22:18)
[2022-04-13 22:00] VITALS: BP 123/78; PULSE 72; RESP 16; TEMP 36.5; O2SAT 97
[2022-04-13] MEDS: Atorvastatin Calcium 80 MG Tablet PO (22:15)
[2022-04-13 22:16] VITALS: BP 123/78; PULSE 72
[2022-04-13] MEDS: Doxazosin 1 MG Tablet PO (22:16)
[2022-04-14] MEDS: Menthol/Lanolin/Calamine/Znox 113 GM Tube 1 APPLIC TOPICAL ×2 (05:59→21:57)
[2022-04-14 06:41] VITALS: O2SAT 95
[2022-04-14 08:26] VITALS: BP 133/87; PULSE 83; RESP 16; TEMP 36.4; O2SAT 94
[2022-04-14 09:05] VITALS: PULSE 83
[2022-04-14] MEDS: Tamsulosin HCl 0.4 MG Capsule PO (09:05)
[2022-04-14] MEDS: Clopidogrel Bisulfate 75 MG Tablet PO (09:05)
[2022-04-14] MEDS: Metoprolol Tartrate 50 MG Tablet PO ×2 (09:05→21:57)
[2022-04-14] MEDS: Ensure Plus High Protein 120 ML LIQUID PO ×3 (09:06→16:43)
[2022-04-14] MEDS: APIXABAN 5 MG TABLET PO ×2 (09:06→21:57)
[2022-04-14] MEDS: Multivitamin (Healthy Eyes) Capsule 1 CAP PO (09:06)
[2022-04-14] MEDS: Pantoprazole Sodium 40 MG Tablet PO ×2 (09:06→21:58)
[2022-04-14 19:51] VITALS: BP 126/75; PULSE 89; RESP 18; TEMP 36.4; O2SAT 98
[2022-04-14 21:57] VITALS: BP 126/75; PULSE 89
[2022-04-14] MEDS: Atorvastatin Calcium 80 MG Tablet PO (21:57)
[2022-04-14] MEDS: Doxazosin 1 MG Tablet PO (21:57)
[2022-04-15] VITALS (7 sets, daily range): BP systolic 104–142; BP diastolic 53–81; PULSE 78–91; RESP 16; TEMP 36.3–36.9; O2SAT 97–99
[2022-04-15] MEDS: Menthol/Lanolin/Calamine/Znox 113 GM Tube 1 APPLIC TOPICAL ×2 (05:49→22:48)
[2022-04-15] MEDS: Multivitamin (Healthy Eyes) Capsule 1 CAP PO (07:30)
[2022-04-15] MEDS: Metoprolol Tartrate 50 MG Tablet PO ×2 (07:30→22:48)
[2022-04-15] MEDS: Tamsulosin HCl 0.4 MG Capsule PO (07:30)
[2022-04-15] MEDS: APIXABAN 5 MG TABLET PO ×2 (07:30→22:44)
[2022-04-15] MEDS: Ensure Plus High Protein 120 ML LIQUID PO ×4 (07:31→22:44)
[2022-04-15] MEDS: Clopidogrel Bisulfate 75 MG Tablet PO (07:31)
[2022-04-15] MEDS: Pantoprazole Sodium 40 MG Tablet PO ×2 (07:31→22:44)
--- NOTE | 2022-04-15 11:49 | HP.PCM_ITS ---
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 Art was admitted to acute rehab on 02/19/22 and was discharged to [facility] on 03/14/22. At the time of discharge Art was still NWB on the Left arm after a shoulder replacement. He was off Anticoagulation for the surgery and unfortunately had a embolic stroke. He can now bear wt on the LUE and he is transferred back to acute rehab for additional aggressive therapy for 3 hours a day to restore function at or near his level prior to the stroke. Mckinley was living independently prior to the CVA and was independent with all ADL's. Afebrile Heart rate is well controlled. Blood pressure is within goal. Maintaining appropriate oxygen saturation on room air Oral intake is less than adequate. Weight has decreased approximately 2 pounds in the past month. Post void residuals have ranged from 73-209 since readmission. Lab from admission was personally reviewed. White blood cell count is normal at 4.6. Hemoglobin is stable at 12.3. Platelets are within normal limits. Potassium is low at 3.1 and was supplemented. BUN is 16 with a creatinine of 0.86. This is within his baseline. Blood sugar was elevated at 149 but I do not know if this was fasting or not. Phosphorus and magnesium are within normal limits. [facility] Medical History (Updated 04/16/22 @ 17:[address] Janneth Varma DO) Afib Atrial fibrillation Cataract Diabetes Esophageal stenosis History of left common carotid artery stent placement History of skin cancer Hyperlipidemia Hypertension Stenosis of left internal carotid artery Stroke Home Medications acetaminophen 325 mg tablet (Tylenol) 650 mg PO Q4H PRN Pain 02/19/22 [History Last Taken Unknown] apixaban 5 mg tablet (Eliquis) 5 mg PO BID Check with primary doctor 02/19/22 [History Last Taken Unknown] atorvastatin 80 mg tablet 80 mg PO QHS cholesterol 02/19/22 [History Last Taken Unknown] clopidogrel 75 mg tablet (Plavix) 75 mg PO DAILY Check with primary doctor 02/19/22 [History Last Taken Unknown] metoprolol tartrate 50 mg tablet 50 mg PO BID BP 02/19/22 [History Last Taken Unknown] tamsulosin 0.4 mg capsule (Flomax) 0.4 mg PO DAILY retention 02/19/22 [History Last Taken 02/19/22 08:30] vit A 7,160 unit-vit C 113 mg-vit E 100 [id number] tablet 1 tab PO DAILY Check with primary doctor 02/19/22 [History Last Taken Unknown] doxazosin 1 mg tablet 1 mg PO QHS urine 04/12/22 [History Last Taken Unknown] menthol 0.44 %-zinc oxide 20.6 % topical ointment (Calmoseptine) 1 applic topical BID@0600,2200 cream 04/12/22 [History Last Taken Unknown] pantoprazole 40 mg tablet,delayed release 40 mg PO BID heartburn 04/12/22 [History Last Taken Unknown] sennosides 8.6 mg-docusate sodium 50 mg tablet (Stool Softener-Stimulant Laxative) 1 tab PO QHS constipation 04/12/22 [History Last Taken Unknown] Allergy/AdvReac Type Severity Reaction Status Date / Time No Known Allergies Allergy Verified 02/19/22 15:43 Family History no significant family his no significant family history Surgical History History of cataract surgery History of left shoulder replacement Status post dilation of esophageal narrowing Social History household members: none Smoking Status: Former smoker alcohol intake: current alcohol intake frequency: holidays/special occasions only substance use type: does not use ROS Constitutional Constitutional: Reports other Details: He has lost approximately 2 pounds since his discharge from rehab. ; Denies anorexia, chills, fever(s) or night sweats Eyes Eyes: Denies blurry vision, change in vision, eye pain or loss of vision ENT HEENT: Reports abnormal hearing; Denies headache(s), nasal congestion or sore throat Cardiovascular Cardiovascular: Denies chest pain, dyspnea on exertion, edema, lightheadedness, orthopnea, palpitations, paroxysmal nocturnal dyspnea or syncope Respiratory/Chest Respiratory/Chest: Denies cough, dyspnea, shortness of breath at rest, shortness of breath with exertion or wheezing Gastrointestinal Gastrointestinal: Denies abdominal pain, constipation, diarrhea, dyspepsia, nausea or vomiting Genitourinary Genitourinary: Reports other Details: He is still incontinent of urine since the stroke. ; Denies dysuria, hematuria, urinary frequency, urinary hesitancy or urinary urgency Musculoskeletal Musculoskeletal: Denies back pain, joint pain, joint swelling or neck pain Integumentary Integumentary: Denies jaundice, pruritus, rash or wounds Neurologic Neurologic: Reports focal weakness, paresthesias and weakness; Denies disequilibrium, headache(s), seizures or tremor(s) Psychiatric Psychiatric: Denies anxiety, depression, homicidal ideation or suicidal ideation Endocrine Endocrinology: Denies change in body appearance, polydipsia or polyuria Hematologic/Lymphatic Hematologic/Lymphatic: Denies easy bleeding, easy bruising or lymphadenopathy Allergic/Immunologic Allergic/Immunologic: Denies rhinitis, eczemia or asthma Vital Signs Vital Signs Vital Signs: 04/14/22 19:51 04/14/22 21:57 04/14/22 22:00 Temperature 97.6 F L Temperature Source Temporal Pulse Rate 89 89 Pulse Strength Normal (2+) Respiratory Rate 18 Respiratory Effort Respiratory Depth Respiratory Pattern Blood Pressure 126/75 H 126/75 H Blood Pressure Mean 92 Blood Pressure Source Monitor Blood Pressure Position Semi-Fowlers Blood Pressure Location Right Arm Pulse Ox 98 Oxygen Delivery Method Room Air 04/14/22 22:00 04/15/22 07:21 04/15/22 07:30 Temperature 97.4 F L Temperature Source Oral Pulse Rate 91 91 Pulse Strength Respiratory Rate 16 Respiratory Effort Normal Non-Labored Respiratory Depth Normal Respiratory Pattern Normal Blood Pressure 142/81 H Blood Pressure Mean 101 Blood Pressure Source Monitor Blood Pressure Position Semi-Fowlers Blood Pressure Location Left Arm Pulse Ox 97 Oxygen Delivery Method Room Air Room Air 04/15/22 09:07 04/15/22 11:24 Temperature Temperature Source Pulse Rate Pulse Strength Normal (2+) Respiratory Rate Respiratory Effort Respiratory Depth Respiratory Pattern Blood Pressure Blood Pressure Mean Blood Pressure Source Blood Pressure Position Blood Pressure Location Pulse Ox 97 Oxygen Delivery Method Room Air Weight Weight: 170 lb 6.677 oz Body Mass Index (BMI) 24.3 Indicators for Scoring Admitted with or Primary Diagnosis of CVA/Stroke: No Hx of CVA/Stroke: Yes (9/28 L MCA) Modified Cushing Score MRS Score at time of Evaluation: 5-Severe disability NIHSS NIHSS 1a. Level of Consciousness: Alert; keenly responsive 1b. LOC Questions: Answers BOTH questions correctly. 1c. LOC Commands: Performs both tasks correctly. 2. Best Gaze: Normal 3. Visual: No visual loss 4. Facial Palsy: Minor paralysis (flattened nasolabial fold, asymmetry on smiling) (Improved since his last admission to rehab when he had near paralysis of the lower half of his face. ) 5a. Left Arm: Some effort against gravity; 6a. Left Leg: No drift; leg holds 30-degree position for full 5 seconds Total: 3 Physical Exam Const alert and no apparent distress Constitutional Narrative: He is much more alert than when he left rehab the first time. He is making good eye contact with the therapists as they speak to him. Good color in his face and improved facial expression. the Facial droop is much improved but, not gone. HEENT normocephalic and moist oral mucous membranes Eyes PERRL and EOMs intact bilaterally Neck No nuchal rigidity, supple, no JVD and No nodes General: trachea midline Resp normal respiratory effort, normal air movement and clear to auscultation bilaterally Effort and Inspection: Negative for tachypneic, respiratory distress or uses accessory muscles Cardio Cardio Narrative: irreg irreg with controlled VR. No rub, MM or gallop. GI normal to inspection, nondistended, normoactive bowel sounds, soft to palpation and non-tender GI Narrative: no guarding with palpation. Extremity no calf tenderness General Extremity: Negative for clubbing, cyanosis or edema Skin no wounds, no jaundice and no mottling General Skin Exam: no breakdown Rashes: no rashes Psych cooperative Psych Narrative: smiling, calm, cooperative, making good eye contact. Results Medical Records Data Medical Nutrition Assessment Dietitian: Malnutrition Criteria Met Start: 04/12/22 15:52 Freq: Status: Active Protocol: Document 04/12/22 15:52 FADUMO (Rec: 04/12/22 15:52 FADUMO [id number]) Nutrition Malnutrition Evidence of Malnutrition Exists Yes Malnutrition (severe): Acute Illness/Injury Evidenced By Suboptimal Energy Intake ( Moderate),Weight Loss (Severe) ,Physical Changes (Moderate) Clinical Problem Acute Disease or Injury Related Malnutrition Etiology related to CVA and res not consuming adequate nutrition to meet est nutritional needs Signs/Symptoms as evidenced by pt meeting < 75% of est nutritional needs and 7.8% wt loss x ~ 6-8 wks; pt with fat/muscle loss in face/upper body Status Active Problem Biting/Chewing Difficulty Etiology related to dysphagia Signs/Symptoms as evidenced by need for mech altered diet Status Active Problem Recommendation Dietitian Recommendations/Changes Will liberalize diet to Regular - consistency per EXPERIMENTAL MACHINING LAB MANAGER - d/t signs/symptoms of malnutrition Will provide magic cup w/ lunch and ensure pudding w/ dinner for increased nutrition if consumed Will order ensure plus high protein w/ medpass 4x/day for increased nutrition if consumed. Lab / Micro Data Result Diagrams: 04/13/22 08:05 04/13/22 08:05 Assessment & Plan Assessment/Plan (1) Debility: (2) Acute ischemic left MCA stroke: (3) Right hemiplegia: (4) Dysphagia: (5) Urinary incontinence: (6) GERD (gastroesophageal reflux disease): (7) Barretts esophagus: (8) Normochromic normocytic anemia: (9) Hypokalemia: PLAN: Plan PLAN PT for gait stability OT for ADL's ST for evaluation Analgesics as needed Bowel protocol Fall precautions Assess for Anxiety/Depression GI prophylaxis - he is on Protonix 40 mg BID for dx of Ortiz's esophagus made by Dr. Garcia on his last admission to rehab. DVT prophylaxis-he is on Eliquis 5 mg p.o. twice daily for atrial fibrillation. Follow up with PCP and neurology following DC from IP Rehab.....following rehab he will be going back to [place] AM lab including CMP, CBC, Mag and Phos - Supplement potassium and recheck level in a few days. Charges/Coding Visit Charges Inpatient E&M: 99177 Init Hosp L2
--- NOTE | 2022-04-15 12:15 | REHABEVAL_ITS ---
Admission Information Primary Diagnosis:: Physical debility secondary to left MCA embolic CVA. Status Changes from Prescreening?: No changes Identified Actual Problem List:: Cognitve Impr/Memory Loss, Depression, Bladder Incontinence, Mobility Impaired, Self Care Deficit, Fluid Change-Dehydration and Alteration-Leisure Activ. Potential Problem List:: DVT, Bleeding, Infection, UTI, Aspiration, Falls, Skin Integrity and Depression Risk of Complications DVT: ZOEY Hose and - (On ELiquis for AF.) Bleeding: Monitor Lab Values, Nursing to Teach Precautions for anti-coagulation therapy., Wound, if applicable, to be assessed every shift. and Stroke patients assessed for lethargy or change in status. Infection: Clinical Staff to Monitor for S/S of infection: and S/S of infection include fever, redness, warmth, etc. Urinary Tract Infection: Monitor for frequency, burning, discomfort, or incontinence. and Nursing will obtain urine sample for urinalysis and C&S when ordered. Aspiration: Clinical staff will monitor for coughing, drooling, congestion., Speech will evaluate swallowing and dsyphasia. and Nursing will monitor patient swallowing during meals. Falls: Patient will be evaluated for Fall Precautions and Patient will be placed on Fall Precautions as indicated per protocol. Skin Breakdown: Nursing will assess skin daily using assessment tool. and Nursing will place on Skin Breakdown Precautions as indicated. Pain: Clinical staff will assess patient's pain level per protocol., Medications will be given, if needed, and the pain level reassessed. and Other methods: Massage, distraction, decrease stimulus, etc. used PRN. Plan of Care Patient requires physician specializing in physical medicine and rehab oversight to provide close medical supervision of rehab issues including: Pain Management, Sleep Problems, Bowel and Bladder, Medical and co-morbidity Management, DVT prophylaxis, Rehabilitation Leadership and Coordination of treatment team Patient needs Physical Therapy: For a minimum of 1 hour and At least 5 out of 7 days Patient needs Physical Therapy to improve:: Mobility, Strengthening, Transfers, Stretching, ROM, Endurance, Stairs, Gait and Balance Patient needs Occupational Therapy: For a minimum of 1 hour and At least 5 out of 7 days Patient needs Occupational Therapy to improve ADL's incl.: Eating, Grooming, Bathing, Dressing, Toileting, Toilet transfers, Community Reintegration, Higher functioning activities, Household tasks, Adaptive Equipment, Splinting and Other activities as determined Patient requires speech therapy: For a minimum of 1 hour and At least 5 out of 7 days Patient requires speech therapy for: Swallowing, Cognition, Language Skills and Compensatory Strategies Patient requires 24/ Rehabilitation Nursing for: Pain Issues, Identifying and preventing risk factors, Monitoring and reporting current medical conditions, Assisting with ambulation, transfer, and all ADL's, Teaching patients about disease process and medications, Family teaching, Providing safe environment, Bowel and Bladder Issues, Skin integrity and Medication Management Patient needs It Disaster Recovery Manager/ Case Management for: Discharge Planning, Arranging Home Equipment or Services and Family Interventions Patient needs Dietary and Nutrition Services for: Adequate Nutrition, Nutritional Supplements and Nutritional Education Goals Patient will remain: free from falls and or injury at time of discharge. Patient will perform bed mobility at: MOD I level of assist. Patient will complete transfers from bed to chair at: MOD I level of assist. Patient will ambulate: - (25 feet with least restrictive device at contact-guard assist on various surfaces) Patient will propel wheelchair: 100 feet (On various surfaces at standby assist) Patient will complete upper body dressing at: - (Set up/assist) Patient will complete lower body dressing at: - (Minimal assistance with adaptive equipment) Patient will complete toileting at: - (Contact-guard assist) Patient will perform bathing at: MOD I level of assist. Patient will complete grooming at: - (Set up/supervision) Patient will complete home management skills at: MOD I level of assist. Patient will achieve: - (1 curb step with least restrictive device at minimal assistance) Patient will have pain level of: of 3 or less Patient's skin will: remain intact Patient will receive: adequate nutrition. Discharge Planning Estimated Length of stay (days): 28 Anticipated D/C Destination: Assisted Living Facility (Plans on returning to [facility])
--- NOTE | 2022-04-15 12:40 | CASEMGMT ---
Social Work IDT met with patient and sister for Team meeting. Discussed patient's progress in PT/OT/ST/SN. Educated to Medicare benefit. Confirmed pts goal is to return to [facility]. SW confirmed with W that pt can return at time of DC. SW to continue to follow for DC planning. Will ReTeam next week. Liza Oneal ,BUTT MAKER METAL CEILING BUILDER
[2022-04-15] MEDS: Senna/Docusate Sodium 1 Tablet PO (22:44)
[2022-04-15] MEDS: Doxazosin 1 MG Tablet PO (22:47)
[2022-04-15] MEDS: Atorvastatin Calcium 80 MG Tablet PO (22:47)
[2022-04-16] MEDS: Menthol/Lanolin/Calamine/Znox 113 GM Tube 1 APPLIC TOPICAL ×2 (04:59→22:37)
[2022-04-16 07:32] VITALS: BP 116/68; PULSE 83; RESP 16; TEMP 36.2; O2SAT 95
[2022-04-16 09:05] VITALS: BP 116/68; PULSE 83
[2022-04-16] MEDS: APIXABAN 5 MG TABLET PO ×2 (09:05→22:39)
[2022-04-16] MEDS: Clopidogrel Bisulfate 75 MG Tablet PO (09:05)
[2022-04-16] MEDS: Metoprolol Tartrate 50 MG Tablet PO ×2 (09:05→22:38)
[2022-04-16] MEDS: Ensure Plus High Protein 120 ML LIQUID PO ×3 (09:05→22:39)
[2022-04-16] MEDS: Tamsulosin HCl 0.4 MG Capsule PO (09:05)
[2022-04-16] MEDS: Multivitamin (Healthy Eyes) Capsule 1 CAP PO (09:05)
[2022-04-16] MEDS: Pantoprazole Sodium 40 MG Tablet PO ×2 (09:05→22:38)
[2022-04-16] MEDS: FLU VACC QS2022-23(6MOS UP)/PF 60 MCG/0.5 ML SYRINGE IM (09:08)
[2022-04-16 22:00] VITALS: BP 112/65; PULSE 93; RESP 16; TEMP 36.7; O2SAT 95
[2022-04-16 22:38] VITALS: BP 112/65; PULSE 93
[2022-04-16] MEDS: Doxazosin 1 MG Tablet PO (22:38)
[2022-04-16] MEDS: Senna/Docusate Sodium 1 Tablet PO (22:38)
[2022-04-16] MEDS: Atorvastatin Calcium 80 MG Tablet PO (22:39)
[2022-04-17] MEDS: Menthol/Lanolin/Calamine/Znox 113 GM Tube 1 APPLIC TOPICAL ×2 (06:04→21:48)
[2022-04-17 06:11] LABS: Anion Gap 2 (5-15); BUN 27 mg/dL (7-18); Calcium,Total 9.4 mg/dL (8.5-10.1); Chloride 109 mmol/L (98-107); Creatinine, Serum 0.77 mg/dL (0.70-1.30); EST Glomerular Filtration Rate 104 mL/min (>60); Est Glom Filt Rate - Afr Amer 125 mL/min (>60); Estimated Creatinine Clearance 62.86 ml/min; Glucose 109 mg/dL (74-106); Potassium 3.9 mmol/L (3.5-5.1); Sodium Level 139 mmol/L (136-145)
[2022-04-17 07:44] VITALS: BP 122/61; PULSE 93; RESP 16; TEMP 36.1; O2SAT 95
[2022-04-17] MEDS: Ensure Plus High Protein 120 ML LIQUID PO ×3 (07:53→21:48)
[2022-04-17 07:56] VITALS: PULSE 93
[2022-04-17] MEDS: Metoprolol Tartrate 50 MG Tablet PO ×2 (07:56→21:47)
[2022-04-17] MEDS: Pantoprazole Sodium 40 MG Tablet PO ×2 (07:56→21:48)
[2022-04-17] MEDS: Tamsulosin HCl 0.4 MG Capsule PO (07:56)
[2022-04-17] MEDS: Multivitamin (Healthy Eyes) Capsule 1 CAP PO (07:56)
[2022-04-17] MEDS: Clopidogrel Bisulfate 75 MG Tablet PO (07:56)
[2022-04-17] MEDS: APIXABAN 5 MG TABLET PO ×2 (07:57→21:48)
--- NOTE | 2022-04-17 15:15 | CHAPLAIN ---
Type of Pastoral Visit _x__ Initial Visit ___ Follow-up Visit ___ On-call Visit ___ General Patient Visit ___ Spiritual Assessment ___ Family Conference ___ Bereavement ___ Rapid Response ___ Code Blue ___ Other (describe below) Pastoral Care Referral From _x__ Patient ___ Family ___ Nurse ___ Physician ___ Clinical Specialist Medical Device ___ Loft Patternmaker ___ Other (describe below) Sacrament/Intervention _x__ Active listening ___ Anointing ___ Caodaism ___ Bereavement ___ Communion ___ Deyanira exploration ___ ___ Life review _x__ Prayer ___ Reconciliation ___ Sacrament of Sick _x__ Supportive presence ___ Wedding ___ Other (describe below) Pastoral Comments patient is not from here but has family in this area; pt states that he is doing pretty well but that the progress is coming in very small steps; pt says he is not sure what is needed but a prayer is welcomed; pt gives some brief life review
[2022-04-17 20:33] VITALS: BP 120/74; PULSE 98; RESP 16; TEMP 36.7; O2SAT 98
[2022-04-17] MEDS: Doxazosin 1 MG Tablet PO (21:46)
[2022-04-17 21:47] VITALS: BP 120/74; PULSE 98
[2022-04-17] MEDS: Atorvastatin Calcium 80 MG Tablet PO (21:47)
[2022-04-17] MEDS: Senna/Docusate Sodium 1 Tablet PO (21:47)
[2022-04-18 07:37] VITALS: BP 115/71; PULSE 93; TEMP 36.9; O2SAT 94
[2022-04-18] MEDS: Tamsulosin HCl 0.4 MG Capsule PO (07:49)
[2022-04-18] MEDS: Menthol/Lanolin/Calamine/Znox 113 GM Tube 1 APPLIC TOPICAL ×2 (07:49→21:07)
[2022-04-18 07:50] VITALS: BP 115/71; PULSE 93
[2022-04-18] MEDS: Pantoprazole Sodium 40 MG Tablet PO ×2 (07:50→21:03)
[2022-04-18] MEDS: Metoprolol Tartrate 50 MG Tablet PO ×2 (07:50→21:03)
[2022-04-18] MEDS: APIXABAN 5 MG TABLET PO ×2 (07:50→21:03)
[2022-04-18] MEDS: Multivitamin (Healthy Eyes) Capsule 1 CAP PO (07:50)
[2022-04-18] MEDS: Clopidogrel Bisulfate 75 MG Tablet PO (07:50)
[2022-04-18] MEDS: Ensure Plus High Protein 120 ML LIQUID PO ×4 (07:51→21:03)
--- NOTE | 2022-04-18 11:13 | PN_ITS ---
Subjective Subjective Afebrile VSS Maintaining appropriate oxygen saturation on RA Oral intake is good. He took 1300 cc of fluid yesterday and he is eating 75 to 100% of most meals. Remains in continent of urine - denies dysuria Discussed with nursing - no problems that need addressed Reviewed the PT/OT/ST notes - still flaccid on the R side. The left arm is getting stronger.....he was able to raise his left arm today without elevating the shoulder. He is still heavily pushing to the R when standing. Medication list reviewed. Art denies CP, SOB, lightheadedness, nausea/vomiting, abd pain, calf pain. also denies constipation and diarrhea. Objective Data Objective Data Vital Signs: Vital Signs Temp Pulse Resp BP Pulse Ox O2 Del Method 98.5 F 93 16 115/71 94 Room Air 04/18/22 07:37 04/18/22 07:50 04/17/22 20:33 04/18/22 07:50 04/18/22 07:37 04/18/22 07:37 Oxygen Delivery Method Room Air Weight: 167 lb 15.876 oz Body Mass Index (BMI) 24.3 Intake & Output: Intake and Output for Last 24 Hours 04/16/22 04/17/22 04/18/22 23:59 23:59 23:59 Intake Total 1380 / 1380 960 / 960 400 / 400 Output Total 150 / 150 Balance 1380 / 1380 810 / 810 400 / 400 Medical Nutrition Assessment Dietitian: Malnutrition Criteria Met Start: 04/12/22 15:52 Freq: Status: Active Protocol: Document 04/12/22 15:52 FADUMO (Rec: 04/12/22 15:52 FADUMO [id number]) Nutrition Malnutrition Evidence of Malnutrition Exists Yes Malnutrition (severe): Acute Illness/Injury Evidenced By Suboptimal Energy Intake ( Moderate),Weight Loss (Severe) ,Physical Changes (Moderate) Clinical Problem Acute Disease or Injury Related Malnutrition Etiology related to CVA and res not consuming adequate nutrition to meet est nutritional needs Signs/Symptoms as evidenced by pt meeting < 75% of est nutritional needs and 7.8% wt loss x ~ 6-8 wks; pt with fat/muscle loss in face/upper body Status Active Problem Biting/Chewing Difficulty Etiology related to dysphagia Signs/Symptoms as evidenced by need for mech altered diet Status Active Problem Recommendation Dietitian Recommendations/Changes Will liberalize diet to Regular - consistency per THERMAL INTELLIGENCE ANALYST - d/t signs/symptoms of malnutrition Will provide magic cup w/ lunch and ensure pudding w/ dinner for increased nutrition if consumed Will order ensure plus high protein w/ medpass 4x/day for increased nutrition if consumed. Lab / Micro Data Result Diagrams: 04/13/22 08:05 04/17/22 05:40 Physical Exam Const alert and no apparent distress General Appearance: cooperative HEENT normocephalic HEENT Narrative: therapists and the nurses give him water when they are in the room and he is cooperative with drinking. Mouth: dry mucous membranes Eyes PERRL and EOMs intact bilaterally Neck supple and no JVD Resp normal air movement and clear to auscultation bilaterally Resp Narrative: no SOB lying flat in bed. Effort and Inspection: Negative for tachypneic Cardio no gallops Cardio Narrative: irreg irreg with a controlled VR. GI normal to inspection, nondistended, normoactive bowel sounds, soft to palpation and non-tender GI Narrative: No guarding with palpation. Extremity no calf tenderness General Extremity: Negative for edema Skin General Skin Exam: no breakdown Rashes: no rashes Neuro Neuro Narrative: Less facial droop than when he left acute rehab for WVM. More alert. Still flaccid in the RUE......can not even security system administrator. RLE is also flaccid and he can not advance it when in the parallel bars. Psych cooperative and affect normal Assessment & Plan Assessment/Plan (1) Debility: (2) Acute ischemic left MCA stroke: (3) Right hemiplegia: (4) Normochromic normocytic anemia: (5) Urinary incontinence: (6) GERD (gastroesophageal reflux disease): PLAN: Plan 1. Continue therapy 2. No changes to the current drug regimen. 3. Recheck lab Friday AM 4. Don't know that he will ever be able to walk any distance.....I think he will be able to use a WC to propel himself around using the Left arm and leg. 5. Straight cath today for a UA and get 3 additional PVR's R/O UTI as contributing to the incontinence. Charges/Coding Visit Charges Inpatient E&M: 56030 Subs Hosp L2
[2022-04-18 18:40] LABS: Bacteria 0 SEEN /hpf (None Seen); Mucous, Urine 0 SEEN /hpf (<or=2+); Red Blood Cells-Urine 0 SEEN /hpf (0-5); Squamous Epithelial Cells - UA 0 SEEN /hpf (0-5); White Blood Cells 0 SEEN /hpf (0-5)
[2022-04-18 18:48] LABS: Color, Urine Yellow (Yellow); Glucose, Dipstick Normal (Normal); Ketone-Dipstick Negative (Negative); Leukocyte Esterase-Dipstick Negative /ul (Negative); Nitrite-Dipstick Negative (Negative); Occult Blood-Urine Negative /ul (Negative); Protein-Dipstick Negative (Negative); Urine Bilirubin Dipstick Negative (Negative); Urine Clarity Clear (Clear); Urine Urobilinogen Normal (Normal)
[2022-04-18 19:57] VITALS: BP 119/64; PULSE 93; RESP 18; TEMP 36.4; O2SAT 98
[2022-04-18 21:03] VITALS: PULSE 93
[2022-04-18] MEDS: Atorvastatin Calcium 80 MG Tablet PO (21:03)
[2022-04-18] MEDS: Doxazosin 1 MG Tablet PO (21:03)
[2022-04-18] MEDS: Senna/Docusate Sodium 1 Tablet PO (21:03)
[2022-04-19] MEDS: Menthol/Lanolin/Calamine/Znox 113 GM Tube 1 APPLIC TOPICAL ×2 (04:31→21:12)
--- NOTE | 2022-04-19 04:52 | NURSING ---
PT INC OF URINE, BLADDER SCANNED FOR 367 THEN ALSO VOIDED IN THE URINAL 100ML
[2022-04-19 07:30] VITALS: BP 117/67; PULSE 91; RESP 16; TEMP 36.5; O2SAT 97
[2022-04-19 07:45] VITALS: PULSE 74
[2022-04-19] MEDS: APIXABAN 5 MG TABLET PO ×2 (07:45→21:12)
[2022-04-19] MEDS: Clopidogrel Bisulfate 75 MG Tablet PO (07:45)
[2022-04-19] MEDS: Tamsulosin HCl 0.4 MG Capsule PO (07:45)
[2022-04-19] MEDS: Pantoprazole Sodium 40 MG Tablet PO ×2 (07:45→21:11)
[2022-04-19] MEDS: Metoprolol Tartrate 50 MG Tablet PO ×2 (07:45→21:11)
[2022-04-19] MEDS: Ensure Plus High Protein 120 ML LIQUID PO ×4 (07:47→21:11)
[2022-04-19] MEDS: Multivitamin (Healthy Eyes) Capsule 1 CAP PO (07:47)
[2022-04-19 19:21] VITALS: BP 125/73; PULSE 83; RESP 18; TEMP 36.3; O2SAT 98
[2022-04-19 19:50] VITALS: O2SAT 98
[2022-04-19 21:11] VITALS: BP 125/73; PULSE 83
[2022-04-19] MEDS: Atorvastatin Calcium 80 MG Tablet PO (21:11)
[2022-04-19] MEDS: Senna/Docusate Sodium 1 Tablet PO (21:11)
[2022-04-19] MEDS: Doxazosin 1 MG Tablet PO (21:12)
[2022-04-20] MEDS: Menthol/Lanolin/Calamine/Znox 113 GM Tube 1 APPLIC TOPICAL ×2 (05:06→20:05)
[2022-04-20 07:35] VITALS: BP 112/69; PULSE 83; RESP 16; TEMP 36.3; O2SAT 97
[2022-04-20 07:58] VITALS: BP 112/69; PULSE 83
[2022-04-20] MEDS: Ensure Plus High Protein 120 ML LIQUID PO ×4 (07:58→20:03)
[2022-04-20] MEDS: Metoprolol Tartrate 50 MG Tablet PO ×2 (07:58→20:04)
[2022-04-20] MEDS: NYSTATIN 500,000 UNIT/5 ML UDC 500000 UNIT PO ×4 (07:58→20:05)
[2022-04-20] MEDS: Pantoprazole Sodium 40 MG Tablet PO ×2 (07:58→20:05)
[2022-04-20] MEDS: Tamsulosin HCl 0.4 MG Capsule PO (07:59)
[2022-04-20] MEDS: Clopidogrel Bisulfate 75 MG Tablet PO (07:59)
[2022-04-20] MEDS: Multivitamin (Healthy Eyes) Capsule 1 CAP PO (07:59)
[2022-04-20] MEDS: APIXABAN 5 MG TABLET PO ×2 (07:59→20:05)
[2022-04-20] MEDS: Acetaminophen 325 MG Tablet 650 MG PO (13:27)
--- NOTE | 2022-04-20 15:10 | PN_ITS ---
Subjective Subjective Afebrile VSS-blood pressure and heart rate are well controlled. Maintaining appropriate oxygen saturation on RA Oral intake is adequate oral intake Weight is stable Discussed with nursing - no problems that need addressed Reviewed the PT/OT/ST notes Medication list reviewed. Mckinley is consistently participating in all therapy projects asked of him. He is pleasant and cooperative at all times. He denies headache, lightheadedness, sore throat, cough, chest pain, shortness of breath, N/V/abdominal pain, constipation, diarrhea and dysuria. He also denies calf pain. Objective Data Objective Data Vital Signs: Vital Signs Temp Pulse Resp BP Pulse Ox O2 Del Method 97.4 F L 83 16 112/69 97 Room Air 04/20/22 07:35 04/20/22 07:58 04/20/22 07:35 04/20/22 07:58 04/20/22 07:35 04/20/22 07:35 Oxygen Delivery Method Room Air Weight: 169 lb 8.568 oz Body Mass Index (BMI) 24.3 Intake & Output: Intake and Output for Last 24 Hours 04/18/22 04/19/22 04/20/22 23:59 23:59 23:59 Intake Total 1000 / 1000 1200 / 1200 1260 / 1260 Output Total 250 / 250 100 / 100 Balance 750 / 750 1100 / 1100 1260 / 1260 Medical Nutrition Assessment Dietitian: Malnutrition Criteria Met Start: 04/12/22 15:52 Freq: Status: Active Protocol: Document 04/18/22 13:08 (Rec: 04/18/22 13:08 [id number]) Nutrition Malnutrition Evidence of Malnutrition Exists No Malnutrition (severe): Acute Illness/Injury Intake Problem Increased Nutrient Needs (specify) Etiology (protein/calories) related to stroke Signs/Symptoms as evidenced by unintentional wt loss during recovery from stroke Status Active Problem Clinical Problem Acute Disease or Injury Related Malnutrition Etiology - Signs/Symptoms - Status Resolved Problem Biting/Chewing Difficulty Etiology related to dysphagia Signs/Symptoms as evidenced by need for mechanically altered diet Status Active Problem Recommendation Dietitian Recommendations/Changes continue regular diet-texture/ consistency per RATE QUOTING OPERATOR; ensure pudding w/ dinner, magic cup at lunch, ensure plus high protein 120mL 4x/day w/ medpass for additional calories/protein if consumed. Lab / Micro Data Result Diagrams: 04/13/22 08:05 04/17/22 05:40 Physical Exam Const alert and no apparent distress General Appearance: cooperative Resp normal respiratory effort, normal air movement and clear to auscultation bilaterally Resp Narrative: no SOB lying flat in bed. Cardio no gallops Cardio Narrative: irreg irreg with a controlled VR. GI normal to inspection, nondistended, normoactive bowel sounds, soft to palpation and non-tender GI Narrative: No guarding with palpation. Extremity no calf tenderness General Extremity: Negative for edema Skin no wounds, no jaundice and no mottling General Skin Exam: no breakdown Rashes: no rashes Psych cooperative and affect normal Psych Narrative: smiling, calm, cooperative, making good eye contact. Assessment & Plan Assessment/Plan (1) Debility: (2) Acute ischemic left MCA stroke: (3) Right hemiplegia: (4) Normochromic normocytic anemia: (5) Urinary incontinence: (6) GERD (gastroesophageal reflux disease): PLAN: Plan 1. Continue therapy 2. Repeat a BMP and CBC on Friday Charges/Coding Visit Charges Inpatient E&M: 00538 Subs Hosp L1
[2022-04-20 19:30] VITALS: BP 107/70; PULSE 89; RESP 18; TEMP 36.8; O2SAT 97
[2022-04-20 19:45] VITALS: PULSE 89; RESP 18; O2SAT 97
[2022-04-20 20:04] VITALS: BP 107/70; PULSE 89
[2022-04-20] MEDS: Doxazosin 1 MG Tablet PO (20:04)
[2022-04-20] MEDS: Atorvastatin Calcium 80 MG Tablet PO (20:04)
[2022-04-21] MEDS: Menthol/Lanolin/Calamine/Znox 113 GM Tube 1 APPLIC TOPICAL ×2 (06:03→21:09)
[2022-04-21 07:27] VITALS: BP 125/69; PULSE 76; RESP 16; TEMP 36.7; O2SAT 97
[2022-04-21 07:53] VITALS: PULSE 76
[2022-04-21] MEDS: NYSTATIN 500,000 UNIT/5 ML UDC 500000 UNIT PO ×4 (07:53→21:08)
[2022-04-21] MEDS: Pantoprazole Sodium 40 MG Tablet PO ×2 (07:53→21:08)
[2022-04-21] MEDS: Metoprolol Tartrate 50 MG Tablet PO ×2 (07:53→21:09)
[2022-04-21] MEDS: Tamsulosin HCl 0.4 MG Capsule PO (07:53)
[2022-04-21] MEDS: Multivitamin (Healthy Eyes) Capsule 1 CAP PO (07:53)
[2022-04-21] MEDS: APIXABAN 5 MG TABLET PO ×2 (07:53→21:08)
[2022-04-21] MEDS: Clopidogrel Bisulfate 75 MG Tablet PO (07:53)
[2022-04-21] MEDS: Ensure Plus High Protein 120 ML LIQUID PO ×4 (07:54→21:08)
[2022-04-21 20:45] VITALS: BP 105/62; PULSE 95; RESP 16; TEMP 36.3; O2SAT 96
[2022-04-21] MEDS: Atorvastatin Calcium 80 MG Tablet PO (21:08)
[2022-04-21] MEDS: Doxazosin 1 MG Tablet PO (21:08)
[2022-04-21 21:09] VITALS: BP 105/62; PULSE 95
[2022-04-22] MEDS: Menthol/Lanolin/Calamine/Znox 113 GM Tube 1 APPLIC TOPICAL ×2 (04:47→21:11)
[2022-04-22 05:29] LABS: Hematocrit 38.2 % (40-54); Hemoglobin 12.6 g/dL (13.0-16.5); Mean Corpuscular Hgb 30.2 pg (27.0-32.0); Mean Corpuscular Volume 91.6 fL (80-94); Mean Platelet Vol. 10.2 fl (6.2-12.0); Platelet Count 206 K/mm3 (150-450); RBC Distribution Width CV 15.5 % (11.6-14.6); RBC Distribution Width SD 51.9 fl (35.1-43.9); Red Blood Count 4.17 M/mm3 (4.6-6.2); White Blood Count 5.2 K/mm3 (4.4-11.0)
[2022-04-22 05:47] LABS: Anion Gap 7 (5-15); BUN 25 mg/dL (7-18); BUN/Creat Ratio 33.9 RATIO (10-20); Calcium,Total 9.3 mg/dL (8.5-10.1); Chloride 106 mmol/L (98-107); Creatinine, Serum 0.74 mg/dL (0.70-1.30); EST Glomerular Filtration Rate 109 mL/min (>60); Est Glom Filt Rate - Afr Amer 132 mL/min (>60); Estimated Creatinine Clearance 62.86 ml/min; Glucose 111 mg/dL (74-106); Magnesium 1.8 mg/dL (1.6-2.6); Potassium 3.9 mmol/L (3.5-5.1); Sodium Level 138 mmol/L (136-145)
[2022-04-22 07:29] VITALS: BP 117/72; PULSE 82; RESP 16; TEMP 36.6; O2SAT 98
[2022-04-22] MEDS: Ensure Plus High Protein 120 ML LIQUID PO ×4 (08:12→21:12)
[2022-04-22 08:13] VITALS: PULSE 82
[2022-04-22] MEDS: Metoprolol Tartrate 50 MG Tablet PO ×2 (08:13→21:13)
[2022-04-22] MEDS: Tamsulosin HCl 0.4 MG Capsule PO (08:14)
[2022-04-22] MEDS: Multivitamin (Healthy Eyes) Capsule 1 CAP PO (08:14)
[2022-04-22] MEDS: APIXABAN 5 MG TABLET PO ×2 (08:14→21:12)
[2022-04-22] MEDS: Pantoprazole Sodium 40 MG Tablet PO ×2 (08:14→21:12)
[2022-04-22] MEDS: Clopidogrel Bisulfate 75 MG Tablet PO (08:14)
[2022-04-22] MEDS: NYSTATIN 500,000 UNIT/5 ML UDC 500000 UNIT PO ×4 (08:20→21:12)
--- NOTE | 2022-04-22 14:30 | CASEMGMT ---
Social Work IDT met with pt and sister on conference call for Team meeting. Discussed patient's progress in PT/OT/ST/SN. Educated of Medicare approval for 15 dya with discharge 04/27. SW inquired if plan is to return to [facility]. Pt sister upset that rehab stay is coming to an end and requested extended stay. SW updated that Medicare days end on 04/27. Sister inquiring about private paying. SW informed $!500/day with 7 days upfront per Environmental Services Supervisor. SW also informed that pt therapy will continue at SNF and discussed level of care differences. Pt sister to consider options and SW will follow up. ADAMS Valente
--- NOTE | 2022-04-22 15:00 | PCM.PROGNOTE ---
Subjective Subjective Mckinley was seen on team rounds today. His sister Misty participated by phone. Afebrile VSS-blood pressure is well controlled. Heart rate is well controlled with metoprolol. Maintaining appropriate oxygen saturation on RA Oral intake is good At patient postvoid residual greater than 200. Remains incontinent of urine. Discussed with nursing - no problems that need addressed Reviewed the PT/OT/ST notes. Still requiring total assist for upper body dressing, lower body dressing, toileting and toilet transfer. Max assist of 1 to go from supine to sitting and max assist of 2 to go from sitting to standing. OT tells me that when then extend his arms above his head he has pain. He has not been asking for pain medication and when nursing asks him if he wants pain medication he says NO BUT, per ST he is having trouble with appropriately saying yes and no to questions appropriately.......when asked if coal was whiter than snow he said yes. I think we will schedule some pain medication for him. Medication list reviewed. Not currently on a scheduled pain reliever. Mckinley has no complaints other than pain when he raises his arms above his head and then he finally admits to pain in his shoulders. With the right shoulder it is passive range of motion and he is unable to reach full extension due to pain. All lab was personally reviewed. Hemoglobin is stable at 12.6 and the WBC count is normal. Platelet count is within normal limits. Potassium is stable at 3.9. BUN is high at 25 with a stable creatinine of 0.74. Magnesium is stable at 1.8. When the social work job titles mentioned today that Mckinley would be going back to [facility] at discharge from rehab Laila seemed surprised. We discussed this last week at TEAM and she was present in the room. Not sure her memory is completely intact. She writes things down while talk in TEAM. She asked if he was on a medication to control the rhythm of the heart.......like amiodarone which is what she takes. I explained Mckinley is in persistent long standing AF and his rate is well controlled with Metoprolol and he takes Eliquis to prevent strokes. I also explained that I do not expect are to recover functional movement of his right arm and right leg. He was able to propel the wheelchair today using his left leg. He was also able to place toothpaste on his toothbrush using 1 hand. He will most likely need an extended care facility going forward as he will be unable to live by himself. He needs quite a lot of assistance. Objective Data Objective Data Vital Signs: Vital Signs Temp Pulse Resp BP Pulse Ox O2 Del Method 97.8 F 82 16 117/72 98 Room Air 04/22/22 07:29 04/22/22 08:13 04/22/22 07:29 04/22/22 07:29 04/22/22 07:29 04/22/22 07:29 Oxygen Delivery Method Room Air Weight: 169 lb 5.04 oz Body Mass Index (BMI) 24.3 Intake & Output: Intake and Output for Last 24 Hours 04/20/22 04/21/22 04/22/22 23:59 23:59 23:59 Intake Total 1900 / 1900 1130 / 1230 1220 / 1220 Output Total 150 / 150 Balance 1900 / 1900 1130 / 1230 1070 / 1070 Medical Nutrition Assessment Dietitian: Malnutrition Criteria Met Start: 04/12/22 15:52 Freq: Status: Active Protocol: Document 04/18/22 13:08 AG (Rec: 04/18/22 13:08 [id number]) Nutrition Malnutrition Evidence of Malnutrition Exists No Malnutrition (severe): Acute Illness/Injury Intake Problem Increased Nutrient Needs (specify) Etiology (protein/calories) related to stroke Signs/Symptoms as evidenced by unintentional wt loss during recovery from stroke Status Active Problem Clinical Problem Acute Disease or Injury Related Malnutrition Etiology - Signs/Symptoms - Status Resolved Problem Biting/Chewing Difficulty Etiology related to dysphagia Signs/Symptoms as evidenced by need for mechanically altered diet Status Active Problem Recommendation Dietitian Recommendations/Changes continue regular diet-texture/ consistency per MAGNETIC RESONANCE IMAGING COORDINATOR; ensure pudding w/ dinner, magic cup at lunch, ensure plus high protein 120mL 4x/day w/ medpass for additional calories/protein if consumed. Lab / Micro Data Result Diagrams: 04/22/22 05:18 04/22/22 05:18 Labs: Laboratory Results - last 24 hr 04/22/22 05:18: WBC 5.2, RBC 4.17 L, Hgb 12.6 L, Hct 38.2 L, MCV 91.6, MCH 30.2, MCHC 33.0, RDW Std Deviation 51.9 H, RDW Coeff of Juan 15.5 H, Plt Count 206, MPV 10.2 04/22/22 05:18: Sodium 138, Potassium 3.9, Chloride 106, Carbon Dioxide 25.0, Anion Gap 7, BUN 25 H, Creatinine 0.74, Estim Creat Clear Calc 62.86, Est GFR (MDRD) Af Amer 132, Est GFR (MDRD) Non-Af 109, BUN/Creatinine Ratio 33.9 H, Glucose 111 H, Calcium 9.3, Magnesium 1.8 Physical Exam Const alert and no apparent distress General Appearance: cooperative Orientation / Consciousness: confused Resp clear to auscultation bilaterally Cardio Cardio Narrative: Irregular irregular with controlled ventricular response. No gallop. No murmur. GI normal to inspection, nondistended, normoactive bowel sounds, soft to palpation and non-tender GI Narrative: No guarding with palpation Extremity no calf tenderness Extremity Narrative: He can not lift the RUE however, when OT does ROM with him he c/o pain when going up towards 180 degrees. Skin General Skin Exam: no breakdown Rashes: no rashes Psych Psych Narrative: He does not seem depressed. He denies feeling depressed and he is eating well, sleeping well, participating well with therapy and never refuses therapy. He is pleasant and talkative. Assessment & Plan Assessment/Plan (1) Debility: (2) Acute ischemic left MCA stroke: (3) Right hemiplegia: (4) Dysphagia: (5) Normochromic normocytic anemia: (6) Urinary incontinence: (7) Urine retention: PLAN: rarely > 200 and the creat is stable. PLAN: Plan 1. Continue therapy 2. Schedule Tylenol 1 g p.o. every 8 hours for shoulder pain and apply arthritis cream twice daily to both shoulders. 3. Continue to encourage increased fluid intake. 4. Plan is for [facility] at [place] per our usual SW.....not sure whether Misty is the best person to be making that decision......she seems to have some issues with memory. Charges/Coding Visit Charges Inpatient E&M: 32941 Subs Hosp L2
[2022-04-22 20:50] VITALS: BP 110/61; PULSE 77; RESP 16; TEMP 36.4; O2SAT 95
[2022-04-22] MEDS: Arthritis Pain Compound 60 CLICK TUBE TOPICAL (21:11)
[2022-04-22] MEDS: Atorvastatin Calcium 80 MG Tablet PO (21:12)
[2022-04-22] MEDS: Senna/Docusate Sodium 1 Tablet PO (21:12)
[2022-04-22] MEDS: Doxazosin 1 MG Tablet PO (21:12)
[2022-04-22 21:13] VITALS: PULSE 77
[2022-04-22] MEDS: Acetaminophen 500 MG Tablet 1000 MG PO (21:13)
--- NOTE | 2022-04-23 03:42 | NURSING ---
REVIEWED AND AGREE WITH AIRBRUSH ARTIST TECHNICAL'S FUNCTIONAL ASSESSMENT AND HANDOFF CHARTING.
[2022-04-23] MEDS: Acetaminophen 500 MG Tablet 1000 MG PO ×3 (05:39→20:29)
[2022-04-23] MEDS: Menthol/Lanolin/Calamine/Znox 113 GM Tube 1 APPLIC TOPICAL ×2 (05:40→20:31)
[2022-04-23 07:29] VITALS: BP 113/64; PULSE 89; RESP 16; TEMP 36.3; O2SAT 98
[2022-04-23] MEDS: Arthritis Pain Compound 60 CLICK TUBE TOPICAL ×2 (08:35→20:32)
[2022-04-23 08:36] VITALS: BP 113/64; PULSE 89
[2022-04-23] MEDS: Multivitamin (Healthy Eyes) Capsule 1 CAP PO (08:36)
[2022-04-23] MEDS: NYSTATIN 500,000 UNIT/5 ML UDC 500000 UNIT PO ×4 (08:36→20:31)
[2022-04-23] MEDS: Clopidogrel Bisulfate 75 MG Tablet PO (08:36)
[2022-04-23] MEDS: Ensure Plus High Protein 120 ML LIQUID PO ×4 (08:36→20:31)
[2022-04-23] MEDS: Tamsulosin HCl 0.4 MG Capsule PO (08:36)
[2022-04-23] MEDS: Pantoprazole Sodium 40 MG Tablet PO ×2 (08:36→20:29)
[2022-04-23] MEDS: APIXABAN 5 MG TABLET PO ×2 (08:36→20:31)
[2022-04-23] MEDS: Metoprolol Tartrate 50 MG Tablet PO ×2 (08:36→20:30)
--- NOTE | 2022-04-23 09:48 | CASEMGMT ---
Social Work Spoke with sister to follow up on DC plans. Sister expressed concerns with pt returning to [facility] r/t poor ST pt received prior. Sister considering paying privately for a week to continue with therapy. SW acknowledged concerns and encouraged to tour other SNFs if unhappy with therapy, as therapy is an ongoing need for pt. Sister stated she plans to tour [facility] this week. SW made referral via [facility] to [facility]. Will await outcome. Liza Oneal, MULTIMEDIA TEACHER STRAIGHTENER HAND
--- NOTE | 2022-04-23 11:22 | PCM.PROGNOTE ---
Subjective Subjective Afebrile VSS-blood pressure is well controlled and the heart rate is within normal limits. Maintaining appropriate oxygen saturation on RA Oral intake is good. He took 2111 cc by mouth yesterday. Still incontinent of urine. Having regular bowel movements. Discussed with nursing - no problems that need addressed Reviewed the PT/OT/ST notes Medication list reviewed. He was started on scheduled Tylenol and arthritis compounded cream yesterday for complaint of bilateral shoulder plain with reaching above his head. Art denies lightheadedness, vertigo, CP, SOB at rest, SOB with exertion, cough, nausea, vomiting, abd pain, diarrhea, constipation, dysuria, calf pain and ankle swelling. He tells me that he had has no pain. I spoke with OT and he was still grimacing with external rotation of the RUE and with both shoulders when extending above his head. Denied pain to the nurse also......he is hard to evaluate because he confuses yes and no. Objective Data Objective Data Vital Signs: Vital Signs Temp Pulse Resp BP Pulse Ox O2 Del Method 97.3 F L 89 16 113/64 98 Room Air 04/23/22 07:29 04/23/22 08:36 04/23/22 07:29 04/23/22 08:36 04/23/22 07:29 04/23/22 07:29 Oxygen Delivery Method Room Air Weight: 169 lb 5.04 oz Body Mass Index (BMI) 24.3 Intake & Output: Intake and Output for Last 24 Hours 04/21/22 04/22/22 04/23/22 23:59 23:59 23:59 Intake Total 1130 / 1230 2110 560 / 560 Output Total 150 / 150 Balance 1130 / 1230 1960 560 / 560 Medical Nutrition Assessment Dietitian: Malnutrition Criteria Met Start: 04/12/22 15:52 Freq: Status: Active Protocol: Document 04/18/22 13:08 HANSEL (Rec: 04/18/22 13:08 [id number]) Nutrition Malnutrition Evidence of Malnutrition Exists No Malnutrition (severe): Acute Illness/Injury Intake Problem Increased Nutrient Needs (specify) Etiology (protein/calories) related to stroke Signs/Symptoms as evidenced by unintentional wt loss during recovery from stroke Status Active Problem Clinical Problem Acute Disease or Injury Related Malnutrition Etiology - Signs/Symptoms - Status Resolved Problem Biting/Chewing Difficulty Etiology related to dysphagia Signs/Symptoms as evidenced by need for mechanically altered diet Status Active Problem Recommendation Dietitian Recommendations/Changes continue regular diet-texture/ consistency per GAS BLENDER; ensure pudding w/ dinner, magic cup at lunch, ensure plus high protein 120mL 4x/day w/ medpass for additional calories/protein if consumed. Lab / Micro Data Result Diagrams: 04/22/22 05:18 04/22/22 05:18 Physical Exam Const alert and no apparent distress General Appearance: cooperative Orientation / Consciousness: confused HEENT normocephalic Mouth: dry mucous membranes Eyes PERRL and EOMs intact bilaterally Neck nuchal rigidity and nodes Resp normal respiratory effort Resp Narrative: no SOB lying flat in bed. Diminished in the bases but no crackles or wheezes appreciated. Effort and Inspection: Negative for tachypneic, respiratory distress or uses accessory muscles Cardio no gallops Cardio Narrative: Irregular irregular with controlled ventricular response. No gallop. No murmur. GI normal to inspection, nondistended, normoactive bowel sounds, soft to palpation and non-tender GI Narrative: No guarding with palpation Extremity no calf tenderness Extremity Narrative: He can not lift the RUE however, when OT does ROM with him he c/o pain when going up towards 180 degrees. General Extremity: Negative for clubbing, cyanosis or edema Skin General Skin Exam: no breakdown Rashes: no rashes Neuro Neuro Narrative: Less facial droop than when he left acute rehab for W[facility]. More alert. Still flaccid in the RUE......can not even x ray operator. RLE is also flaccid and he can not advance it when in the parallel bars. Psych cooperative and affect normal Psych Narrative: He does not seem depressed. He denies feeling depressed and he is eating well, sleeping well, participating well with therapy and never refuses therapy. He is pleasant and talkative. Assessment & Plan Assessment/Plan (1) Debility: PLAN: Continue therapy. (2) Acute ischemic left MCA stroke: PLAN: Embolic, secondary to atrial fibrillation, not on anticoagulation due to left shoulder replacement. (3) Right hemiplegia: PLAN: Doubt this is going to come back and suspect he will be confined to a WC but, he is making progress maneuvering the WC with the Left leg. (4) Dysphagia: PLAN: much improved (5) Normochromic normocytic anemia: PLAN: Stable (6) Urinary incontinence: (7) Urine retention: PLAN: rarely > 200 and the creat is stable. (8) Cognitive dysfunction: PLAN: Plan 1. Continue therapy 2. Add tramadol 25 mg p.o. every 6 hours as needed pain greater than 3 Charges/Coding Visit Charges Inpatient E&M: 12732 [facility] Hosp L1
[2022-04-23 19:45] VITALS: BP 118/63; PULSE 87; RESP 16; TEMP 36.7; O2SAT 98
[2022-04-23 20:30] VITALS: BP 118/63; PULSE 87
[2022-04-23] MEDS: Doxazosin 1 MG Tablet PO (20:30)
[2022-04-23] MEDS: Atorvastatin Calcium 80 MG Tablet PO (20:30)
--- NOTE | 2022-04-24 03:49 | NURSING ---
Reviewed and agree with Swetha MARKHAM, documentation and assessment charting.
[2022-04-24] MEDS: Menthol/Lanolin/Calamine/Znox 113 GM Tube 1 APPLIC TOPICAL ×2 (05:45→21:35)
[2022-04-24] MEDS: Acetaminophen 500 MG Tablet 1000 MG PO ×3 (05:45→21:36)
[2022-04-24 08:02] VITALS: BP 123/63; PULSE 90; RESP 16; TEMP 36.3; O2SAT 98
[2022-04-24] MEDS: Arthritis Pain Compound 60 CLICK TUBE TOPICAL ×2 (09:08→21:34)
[2022-04-24 09:09] VITALS: PULSE 90
[2022-04-24] MEDS: APIXABAN 5 MG TABLET PO ×2 (09:09→21:36)
[2022-04-24] MEDS: Tamsulosin HCl 0.4 MG Capsule PO (09:09)
[2022-04-24] MEDS: Multivitamin (Healthy Eyes) Capsule 1 CAP PO (09:09)
[2022-04-24] MEDS: Metoprolol Tartrate 50 MG Tablet PO ×2 (09:09→21:36)
[2022-04-24] MEDS: NYSTATIN 500,000 UNIT/5 ML UDC 500000 UNIT PO ×4 (09:09→21:36)
[2022-04-24] MEDS: Pantoprazole Sodium 40 MG Tablet PO ×2 (09:10→21:36)
[2022-04-24] MEDS: Clopidogrel Bisulfate 75 MG Tablet PO (09:10)
[2022-04-24] MEDS: Ensure Plus High Protein 120 ML LIQUID PO ×3 (09:11→17:00)
[2022-04-24 21:33] VITALS: BP 131/70; PULSE 84
[2022-04-24] MEDS: Doxazosin 1 MG Tablet PO (21:35)
[2022-04-24 21:36] VITALS: PULSE 84
[2022-04-24] MEDS: Atorvastatin Calcium 80 MG Tablet PO (21:36)
[2022-04-24] MEDS: Senna/Docusate Sodium 1 Tablet PO (21:36)
[2022-04-24 22:00] VITALS: BP 138/59; PULSE 104; RESP 18; TEMP 37.2; O2SAT 98
[2022-04-25] MEDS: Acetaminophen 500 MG Tablet 1000 MG PO ×3 (05:32→22:47)
[2022-04-25] MEDS: Menthol/Lanolin/Calamine/Znox 113 GM Tube 1 APPLIC TOPICAL ×2 (05:32→22:52)
[2022-04-25 07:27] VITALS: BP 124/71; PULSE 94; RESP 16; TEMP 36.7; O2SAT 95
[2022-04-25 08:54] VITALS: BP 124/71; PULSE 94
[2022-04-25] MEDS: Tamsulosin HCl 0.4 MG Capsule PO (08:54)
[2022-04-25] MEDS: Multivitamin (Healthy Eyes) Capsule 1 CAP PO (08:54)
[2022-04-25] MEDS: Metoprolol Tartrate 50 MG Tablet PO ×2 (08:54→22:46)
[2022-04-25] MEDS: Clopidogrel Bisulfate 75 MG Tablet PO (08:54)
[2022-04-25] MEDS: Pantoprazole Sodium 40 MG Tablet PO ×2 (08:54→22:46)
[2022-04-25] MEDS: APIXABAN 5 MG TABLET PO ×2 (08:55→22:45)
[2022-04-25] MEDS: NYSTATIN 500,000 UNIT/5 ML UDC 500000 UNIT PO ×4 (08:56→22:46)
[2022-04-25] MEDS: Ensure Plus High Protein 120 ML LIQUID PO ×4 (08:59→22:44)
[2022-04-25] MEDS: Arthritis Pain Compound 60 CLICK TUBE TOPICAL ×2 (08:59→22:45)
--- NOTE | 2022-04-25 09:04 | CASEMGMT ---
Addendum entered by Liza Oneal 04/25/22 14:26: [facility] is able to accept pt. Original Note: Social Work Followed up with sister on DC plans. Sister states she still does not know what the plan will be. Sister is deciding between paying privately for a week on [place] or transferring to [facility]. Encouraged sister to schedule tour with [facility] today. Sister agreed and requested this worker assist with that. contacted [facility] and scheduled tour for 1500 today. [facility] is still reviewing referral. This worker requested an answer be provided prior to tour - [facility] agreed. SW to continue to follow. Liza Oneal WAXER TENDER SOCIAL WORK COORDINATOR
[2022-04-25 19:07] VITALS: BP 92/60; PULSE 85; RESP 18; TEMP 36.6; O2SAT 98
[2022-04-25] MEDS: Doxazosin 1 MG Tablet PO (22:45)
[2022-04-25] MEDS: Atorvastatin Calcium 80 MG Tablet PO (22:45)
[2022-04-25 22:46] VITALS: PULSE 88
[2022-04-25] MEDS: Senna/Docusate Sodium 1 Tablet PO (22:47)
[2022-04-26] MEDS: Acetaminophen 500 MG Tablet 1000 MG PO ×3 (05:53→21:22)
[2022-04-26] MEDS: Menthol/Lanolin/Calamine/Znox 113 GM Tube 1 APPLIC TOPICAL ×2 (05:53→22:30)
[2022-04-26 07:54] VITALS: BP 115/66; PULSE 70; RESP 16; TEMP 36.3; O2SAT 97
[2022-04-26 08:21] VITALS: PULSE 70
[2022-04-26] MEDS: Metoprolol Tartrate 50 MG Tablet PO ×2 (08:21→21:23)
[2022-04-26] MEDS: Multivitamin (Healthy Eyes) Capsule 1 CAP PO (08:22)
[2022-04-26] MEDS: Clopidogrel Bisulfate 75 MG Tablet PO (08:22)
[2022-04-26] MEDS: Pantoprazole Sodium 40 MG Tablet PO ×2 (08:22→21:22)
[2022-04-26] MEDS: APIXABAN 5 MG TABLET PO ×2 (08:22→21:23)
[2022-04-26] MEDS: Arthritis Pain Compound 60 CLICK TUBE TOPICAL ×2 (08:22→21:21)
[2022-04-26] MEDS: Tamsulosin HCl 0.4 MG Capsule PO (08:23)
[2022-04-26] MEDS: Ensure Plus High Protein 120 ML LIQUID PO ×4 (08:25→21:22)
[2022-04-26] MEDS: NYSTATIN 500,000 UNIT/5 ML UDC 500000 UNIT PO (08:29)
--- NOTE | 2022-04-26 12:16 | CASEMGMT ---
Social Work Followed up with patient's sister on [facility] tour and DC plan. Sister was not happy [facility] did not have private rooms, but did like it otherwise. Sister is still unsure if pt would go to [facility] or back to [facility]. Sister highly considering paying privately for another 7 days in , but stressed only if IDT feels more improvement is to be made. SW agreed to speak with IDT and report back to sister. SW spoke with IDT. IDT concurs that pt will not make significant improvement with another week's stay, pt will not be receiving full therapy on 04/27 or 04/28, but would continue working with pt if family elects. SW contacted the sister with update. Sister expressed understanding and states family has decided to pay privately for 7 days, with new DC date of 05/04. Provided instructions on payment for 7 days to sister. Sister continued to express great appreciation for this worker's assistance. IDT updated. Plan: pt to remain in until 05/04. SW to continue to follow. Liza Oneal, DISABILITY AIDE STEAM SHOVEL OPERATING ENGINEER
[2022-04-26 19:43] VITALS: BP 132/62; PULSE 79; RESP 16; TEMP 36.1; O2SAT 96
[2022-04-26 21:23] VITALS: BP 132/62; PULSE 79
[2022-04-26] MEDS: Senna/Docusate Sodium 1 Tablet PO (21:23)
[2022-04-26] MEDS: Atorvastatin Calcium 80 MG Tablet PO (21:24)
[2022-04-26] MEDS: Doxazosin 1 MG Tablet PO (21:24)
[2022-04-27] MEDS: Acetaminophen 500 MG Tablet 1000 MG PO ×2 (05:29→21:33)
[2022-04-27] MEDS: Menthol/Lanolin/Calamine/Znox 113 GM Tube 1 APPLIC TOPICAL ×2 (05:29→21:34)
[2022-04-27 07:37] VITALS: BP 126/75; PULSE 83; RESP 16; TEMP 36.3; O2SAT 96
[2022-04-27] MEDS: Ensure Plus High Protein 120 ML LIQUID PO ×3 (08:19→21:33)
[2022-04-27] MEDS: Arthritis Pain Compound 60 CLICK TUBE TOPICAL ×2 (08:19→21:33)
[2022-04-27 08:20] VITALS: PULSE 83
[2022-04-27] MEDS: APIXABAN 5 MG TABLET PO ×2 (08:20→21:34)
[2022-04-27] MEDS: Metoprolol Tartrate 50 MG Tablet PO ×2 (08:20→21:34)
[2022-04-27] MEDS: Clopidogrel Bisulfate 75 MG Tablet PO (08:20)
[2022-04-27] MEDS: Tamsulosin HCl 0.4 MG Capsule PO (08:20)
[2022-04-27] MEDS: Multivitamin (Healthy Eyes) Capsule 1 CAP PO (08:20)
[2022-04-27] MEDS: Pantoprazole Sodium 40 MG Tablet PO ×2 (08:23→21:34)
[2022-04-27 19:27] VITALS: BP 143/72; PULSE 77; RESP 17; TEMP 36.1; O2SAT 96
[2022-04-27] MEDS: Senna/Docusate Sodium 1 Tablet PO (21:33)
[2022-04-27 21:34] VITALS: BP 149/72; PULSE 77
[2022-04-27] MEDS: Doxazosin 1 MG Tablet PO (21:34)
[2022-04-27] MEDS: Atorvastatin Calcium 80 MG Tablet PO (21:34)
[2022-04-28] MEDS: Menthol/Lanolin/Calamine/Znox 113 GM Tube 1 APPLIC TOPICAL ×2 (05:31→22:08)
[2022-04-28] MEDS: Acetaminophen 500 MG Tablet 1000 MG PO ×2 (05:31→22:06)
[2022-04-28 08:00] VITALS: BP 115/65; PULSE 87; RESP 16; TEMP 36.3; O2SAT 96
[2022-04-28 10:18] VITALS: PULSE 87
[2022-04-28] MEDS: Pantoprazole Sodium 40 MG Tablet PO ×2 (10:18→22:07)
[2022-04-28] MEDS: APIXABAN 5 MG TABLET PO ×2 (10:18→22:08)
[2022-04-28] MEDS: Clopidogrel Bisulfate 75 MG Tablet PO (10:18)
[2022-04-28] MEDS: Metoprolol Tartrate 50 MG Tablet PO ×2 (10:18→22:07)
[2022-04-28] MEDS: Multivitamin (Healthy Eyes) Capsule 1 CAP PO (10:18)
[2022-04-28] MEDS: Tamsulosin HCl 0.4 MG Capsule PO (10:18)
[2022-04-28] MEDS: Ensure Plus High Protein 120 ML LIQUID PO ×3 (10:19→22:06)
[2022-04-28] MEDS: Arthritis Pain Compound 60 CLICK TUBE TOPICAL ×2 (10:19→22:08)
[2022-04-28 20:23] VITALS: BP 100/60; PULSE 79; RESP 17; TEMP 36.5; O2SAT 100
[2022-04-28 22:07] VITALS: BP 100/60; PULSE 79
[2022-04-28] MEDS: Senna/Docusate Sodium 1 Tablet PO (22:07)
[2022-04-28] MEDS: Atorvastatin Calcium 80 MG Tablet PO (22:07)
[2022-04-28] MEDS: Doxazosin 1 MG Tablet PO (22:07)
[2022-04-29] MEDS: Menthol/Lanolin/Calamine/Znox 113 GM Tube 1 APPLIC TOPICAL ×2 (06:18→22:07)
[2022-04-29] MEDS: Acetaminophen 500 MG Tablet 1000 MG PO ×2 (06:18→22:07)
[2022-04-29 07:57] VITALS: BP 119/73; PULSE 82; PULSE 92; RESP 16; RESP 17; TEMP 36.9; O2SAT 95
[2022-04-29] MEDS: Arthritis Pain Compound 60 CLICK TUBE TOPICAL ×2 (09:14→22:08)
[2022-04-29] MEDS: Clopidogrel Bisulfate 75 MG Tablet PO (09:15)
[2022-04-29] MEDS: Multivitamin (Healthy Eyes) Capsule 1 CAP PO (09:15)
[2022-04-29] MEDS: Pantoprazole Sodium 40 MG Tablet PO ×2 (09:15→22:07)
[2022-04-29] MEDS: APIXABAN 5 MG TABLET PO ×2 (09:15→22:07)
[2022-04-29] MEDS: Tamsulosin HCl 0.4 MG Capsule PO (09:15)
[2022-04-29 09:17] VITALS: BP 119/73; PULSE 92
[2022-04-29] MEDS: Metoprolol Tartrate 50 MG Tablet PO ×2 (09:17→22:07)
[2022-04-29] MEDS: Ensure Plus High Protein 120 ML LIQUID PO ×4 (09:18→22:16)
[2022-04-29] MEDS: Sodium Chloride 0.65% 1 SPRAY SPRAY.BTL NASAL ×2 (12:10→22:08)
--- NOTE | 2022-04-29 13:52 | CASEMGMT ---
Social Work IDT met with patient and niece and sister via conference call for Team meeting. Educated to new DC date of 05/04 with private pay. Inquired about FOC and DC plan. Family has decided on pt returning to [facility]. Pt will return skilled on day . SW updated W via [facility]. SW to coordinate cot transport. Plan: DC 05/04 to [facility], skilled. JAMES AllenW
[2022-04-29 19:20] VITALS: BP 115/62; PULSE 85; RESP 17; TEMP 36.8; O2SAT 100
--- NOTE | 2022-04-29 19:39 | PCM.PROGNOTE ---
Subjective Subjective Patient seen, examined on team rounds. , niece on phone. Patient had nosebleeds overnight, will order saline nasal spray. Family accepts that Jhonathan will not be going home, he will have to discharge to facility when done with acute rehab, most likely [facility] for terminal block assembler care. His blood pressures, blood sugars are well controlled. Left arm pain with movement. Objective Data Objective Data Vital Signs: Vital Signs Temp Pulse Resp BP Pulse Ox O2 Del Method 98.2 F 85 17 115/62 100 Room Air 04/29/22 19:20 04/29/22 19:20 04/29/22 19:20 04/29/22 19:20 04/29/22 19:20 04/29/22 19:20 Oxygen Delivery Method Room Air Weight: 78 kg Body Mass Index (BMI) 24.3 Intake & Output: Intake and Output for Last 24 Hours 04/27/22 04/28/22 04/29/22 23:59 23:59 23:59 Intake Total 1370 / 1370 1200 / 1200 840 / 840 Output Total 150 / 150 Balance 1370 / 1370 1200 / 1200 690 / 690 Medical Nutrition Assessment Dietitian: Malnutrition Criteria Met Start: 04/12/22 15:52 Freq: Status: Active Protocol: Document 04/18/22 13:08 (Rec: 04/18/22 13:08 AG [id number]) Nutrition Malnutrition Evidence of Malnutrition Exists No Malnutrition (severe): Acute Illness/Injury Intake Problem Increased Nutrient Needs (specify) Etiology (protein/calories) related to stroke Signs/Symptoms as evidenced by unintentional wt loss during recovery from stroke Status Active Problem Clinical Problem Acute Disease or Injury Related Malnutrition Etiology - Signs/Symptoms - Status Resolved Problem Biting/Chewing Difficulty Etiology related to dysphagia Signs/Symptoms as evidenced by need for mechanically altered diet Status Active Problem Recommendation Dietitian Recommendations/Changes continue regular diet-texture/ consistency per ETCHER APPRENTICE PHOTOENGRAVING; ensure pudding w/ dinner, magic cup at lunch, ensure plus high protein 120mL 4x/day w/ medpass for additional calories/protein if consumed. Lab / Micro Data Result Diagrams: 04/22/22 05:18 04/22/22 05:18 Physical Exam Const alert General Appearance: cooperative HEENT normocephalic Eyes PERRL and EOMs intact bilaterally Neck supple, no JVD and no carotid bruits Resp normal respiratory effort, normal air movement and clear to auscultation bilaterally Cardio regular rate and regular rhythm GI normal to inspection, nondistended, normoactive bowel sounds, non-tender and non-distended Extremity normal capillary refill General Extremity: Negative for edema Skin no rashes or lesions noted General Skin Exam: no breakdown Neuro Neuro Narrative: Right ariane. Psych affect normal Appearance: appropriate Assessment & Plan Assessment/Plan (1) Cognitive dysfunction: (2) Barretts esophagus: (3) History of left shoulder replacement: (4) Right hemiplegia: (5) Acute ischemic left MCA stroke: (6) Debility: PLAN: Plan 76 year old male with below past medical history hospitalized for left sided stroke, right hemiplegia, admitted to for 3 hours daily rehabilitation, strengthening, prior to discharge to terminal block assembler care. Debility - PT/OT. Cognition - ST. Pain - Tylenol 1000mg q8, Arthritis Compound topical bid. Bowel - Senna/colace 1 tablet qhs, Dulcolax 10mg pr daily prn. MOM 30ml daily prn. Adult immunization - Moderna Bivalent booster given today. Atrial fibrillation - Metoprolol 50mg bid, Eliquis 5mg bid. Hyperlipidemia - Atorvastatin 80mg qhs. Stroke - Plavix 75mg daily, Elqiuis 5mg bid. BPH - Doxazosin 1mg daily, Tamsulosin 0.4mg daily. Nutrition - Ensure 120ml 4x/day. Skin irritation - Calmoseptine topical bid. Macular degeneration - Healthy Eye 1 tablet daily. Barretts esophagus - Pantoprazole 40mg bid. Dry nares - Pepin [place] nasal spray 1 spray bid prn. Capacity Capacity Assessment Tool Can the patient make a choice & communicate that choice?: Unable to Determine Can the patient understand benefits, risks and alternatives?: Unable to Determine Can the patient make a logical, rational choice?: Unable to Determine Is the choice the patient makes consistent w/ their values?: Unable to Determine Is there an impending, emergent risk to the patient?: No Does the patient have an Advance Directive?: No Is there a Surrogate Available?: Yes i.e. HCPOA: Yes i.e. close relative (spouse, child, parent, sibling)?: Yes
[2022-04-29 19:50] VITALS: O2SAT 95
[2022-04-29 22:07] VITALS: BP 115/62; PULSE 85
[2022-04-29] MEDS: Doxazosin 1 MG Tablet PO (22:07)
[2022-04-29] MEDS: Senna/Docusate Sodium 1 Tablet PO (22:07)
[2022-04-29] MEDS: Atorvastatin Calcium 80 MG Tablet PO (22:07)
[2022-04-30] MEDS: Menthol/Lanolin/Calamine/Znox 113 GM Tube 1 APPLIC TOPICAL ×2 (05:47→21:26)
[2022-04-30] MEDS: Acetaminophen 500 MG Tablet 1000 MG PO ×3 (05:47→21:22)
[2022-04-30 07:28] VITALS: BP 103/62; PULSE 82; RESP 16; TEMP 36.1; O2SAT 96
[2022-04-30 08:25] VITALS: PULSE 82
[2022-04-30] MEDS: Tamsulosin HCl 0.4 MG Capsule PO (08:25)
[2022-04-30] MEDS: Multivitamin (Healthy Eyes) Capsule 1 CAP PO (08:25)
[2022-04-30] MEDS: Metoprolol Tartrate 50 MG Tablet PO ×2 (08:25→21:21)
[2022-04-30] MEDS: APIXABAN 5 MG TABLET PO ×2 (08:25→21:22)
[2022-04-30] MEDS: Pantoprazole Sodium 40 MG Tablet PO ×2 (08:25→21:22)
[2022-04-30] MEDS: Clopidogrel Bisulfate 75 MG Tablet PO (08:25)
[2022-04-30] MEDS: Arthritis Pain Compound 60 CLICK TUBE TOPICAL ×2 (08:26→21:18)
[2022-04-30] MEDS: Sodium Chloride 0.65% 1 SPRAY SPRAY.BTL NASAL ×3 (08:26→21:22)
[2022-04-30] MEDS: Ensure Plus High Protein 120 ML LIQUID PO ×4 (08:30→21:21)
--- NOTE | 2022-04-30 10:26 | PN_ITS ---
Subjective Subjective Afebrile VSS -blood pressure is well controlled. Heart rate is within normal limits. Maintaining appropriate oxygen saturation on RA Oral intake is good. Eats 75 to 100% of most meals. Weight today is 169.3 which is down from 170.4 pounds at admission. Discussed with nursing - no problems that need addressed Reviewed the PT/OT/ST notes Medication list reviewed. Art denies lightheadedness, vertigo, CP, SOB at rest, SOB with exertion, cough, nausea, vomiting, abd pain, diarrhea, constipation, dysuria, calf pain and ankle swelling. He is having epistaxis today which is mild and I suspect due to dry nasal mucosa/picking and blowing. Objective Data Objective Data Vital Signs: Vital Signs Temp Pulse Resp BP Pulse Ox O2 Del Method 96.9 F L 82 16 103/62 96 Room Air 04/30/22 07:28 04/30/22 08:25 04/30/22 07:28 04/30/22 07:28 04/30/22 07:28 04/30/22 07:28 Oxygen Delivery Method Room Air Weight: 169 lb 5.04 oz Body Mass Index (BMI) 24.3 Intake & Output: Intake and Output for Last 24 Hours 04/28/22 04/29/22 04/30/22 23:59 23:59 23:59 Intake Total 1200 / 1200 840 / 900 600 / 600 Output Total 150 / 150 Balance 1200 / 1200 690 / 750 600 / 600 Medical Nutrition Assessment Dietitian: Malnutrition Criteria Met Start: 04/12/22 15:52 Freq: Status: Active Protocol: Document 04/18/22 13:08 (Rec: 04/18/22 13:08 [id number]) Nutrition Malnutrition Evidence of Malnutrition Exists No Malnutrition (severe): Acute Illness/Injury Intake Problem Increased Nutrient Needs (specify) Etiology (protein/calories) related to stroke Signs/Symptoms as evidenced by unintentional wt loss during recovery from stroke Status Active Problem Clinical Problem Acute Disease or Injury Related Malnutrition Etiology - Signs/Symptoms - Status Resolved Problem Biting/Chewing Difficulty Etiology related to dysphagia Signs/Symptoms as evidenced by need for mechanically altered diet Status Active Problem Recommendation Dietitian Recommendations/Changes continue regular diet-texture/ consistency per FAMILY RESOURCE SPECIALIST; ensure pudding w/ dinner, magic cup at lunch, ensure plus high protein 120mL 4x/day w/ medpass for additional calories/protein if consumed. Lab / Micro Data Result Diagrams: 04/22/22 05:18 04/22/22 05:18 Physical Exam Const alert and no apparent distress General Appearance: cooperative HEENT HEENT Narrative: bleeding from both sides of the nose. Mild, spots of blood on tissue. No hemorrhage. I had him pinch his nose for 10 minutes and it is still bleeding a little but, he is wiping it and wiggling the nose. He has also blown his nose and this starts it again. Mouth: dry mucous membranes Lymph Lymphatic: Negative for lymphadenopathy Resp normal respiratory effort, normal air movement and clear to auscultation bilaterally Cardio no murmurs and no gallops Cardio Narrative: irreg, irreg with controlled VR GI normal to inspection, nondistended, normoactive bowel sounds, soft to palpation and non-tender GI Narrative: No guarding with palpation Extremity no calf tenderness General Extremity: Negative for edema Skin General Skin Exam: no breakdown Rashes: no rashes Psych affect normal Appearance: appropriate Assessment & Plan Assessment/Plan (1) Debility: (2) Right hemiplegia: (3) Dysphagia: (4) Urinary incontinence: (5) GERD with esophagitis: (6) Cognitive dysfunction: (7) Normochromic normocytic anemia: (8) Epistaxis: PLAN: Plan 1. H&H, BMP and magnesium in the a.m. 2. Continue therapy 3. No changes to the medication regimen today patient is doing well. He is now able to propel the WC up to 100' using the LUE and the LLE and was able to maneuver through a narrow doorway yesterday. Max assist of 2 to stand pivot yet. Ambulated at the wall rail for 22' yesterday with max assist X 1 PT advancing foot and locking the knee with WC follow. Will not be able to manage independently and likely will need further therapy/ECF. I reviewed the last SW note and new DC date is 05/04 with private pay. Family has decided that Art will go back to [facility] () via [facility]. 4. Afrin 2 sprays each nostril Q 12H for 2 days and increase the [place] spray to QID. Pt advised NOT to blow his nose and not to pick it and not to wiggle it when wiping. Charges/Coding Visit Charges Inpatient E&M: 31764 Subs Hosp L2
[2022-04-30 20:00] VITALS: BP 121/75; PULSE 83; RESP 16; TEMP 36.5; O2SAT 96
[2022-04-30 20:30] VITALS: O2SAT 96
[2022-04-30] MEDS: Oxymetazoline 0.05% 1 SPRAY SPRAY.BTL 2 SPRAY NASAL (21:17)
[2022-04-30 21:21] VITALS: BP 121/75; PULSE 83
[2022-04-30] MEDS: Atorvastatin Calcium 80 MG Tablet PO (21:21)
[2022-04-30] MEDS: Doxazosin 1 MG Tablet PO (21:22)
[2022-04-30] MEDS: Senna/Docusate Sodium 1 Tablet PO (21:22)
[2022-05-01] MEDS: Acetaminophen 500 MG Tablet 1000 MG PO ×3 (05:19→21:02)
[2022-05-01] MEDS: Menthol/Lanolin/Calamine/Znox 113 GM Tube 1 APPLIC TOPICAL ×2 (05:20→21:01)
[2022-05-01] MEDS: Sodium Chloride 0.65% 1 SPRAY SPRAY.BTL NASAL ×4 (05:22→21:03)
[2022-05-01 05:34] LABS: Hematocrit 39.2 % (40-54); Hemoglobin 12.3 g/dL (13.0-16.5)
[2022-05-01 06:07] LABS: Anion Gap 7 (5-15); BUN 30 mg/dL (7-18); BUN/Creat Ratio 40.4 RATIO (10-20); Calcium,Total 9.2 mg/dL (8.5-10.1); Chloride 109 mmol/L (98-107); Creatinine, Serum 0.74 mg/dL (0.70-1.30); EST Glomerular Filtration Rate 108 mL/min (>60); Est Glom Filt Rate - Afr Amer 131 mL/min (>60); Estimated Creatinine Clearance 62.86 ml/min; Glucose 107 mg/dL (74-106); Magnesium 1.9 mg/dL (1.6-2.6); Potassium 3.9 mmol/L (3.5-5.1); Sodium Level 141 mmol/L (136-145)
[2022-05-01 07:40] VITALS: BP 122/67; PULSE 84; RESP 16; TEMP 36.3; O2SAT 100
[2022-05-01] MEDS: Arthritis Pain Compound 60 CLICK TUBE TOPICAL ×2 (08:22→21:00)
[2022-05-01] MEDS: Oxymetazoline 0.05% 1 SPRAY SPRAY.BTL 2 SPRAY NASAL ×2 (08:22→21:00)
[2022-05-01 08:23] VITALS: BP 122/67; PULSE 84
[2022-05-01] MEDS: Multivitamin (Healthy Eyes) Capsule 1 CAP PO (08:23)
[2022-05-01] MEDS: Clopidogrel Bisulfate 75 MG Tablet PO (08:23)
[2022-05-01] MEDS: Pantoprazole Sodium 40 MG Tablet PO ×2 (08:23→21:02)
[2022-05-01] MEDS: Ensure Plus High Protein 120 ML LIQUID PO ×4 (08:23→21:14)
[2022-05-01] MEDS: APIXABAN 5 MG TABLET PO ×2 (08:23→21:01)
[2022-05-01] MEDS: Metoprolol Tartrate 50 MG Tablet PO ×2 (08:23→21:01)
[2022-05-01] MEDS: Tamsulosin HCl 0.4 MG Capsule PO (08:23)
--- NOTE | 2022-05-01 09:21 | CASEMGMT ---
Addendum entered by Liza Oneal 05/02/22 16:11: 7000 completed. Sent, along with transfer summary, to [facility] Original Note: Social Work 7000 started in [facility]. Scheduled cot transport for 1100 through [facility]. Liza Oneal, ETHNIC STUDIES PROFESSOR ORNAMENTAL PLASTER STICKER
--- NOTE | 2022-05-01 11:11 | PN_ITS ---
Subjective Subjective Afebrile Blood pressure is well controlled Heart rate is well controlled Maintaining appropriate oxygen saturation on room air. Maintaining good oral intake All lab drawn this AM was personally reviewed. Hemoglobin is stable at 12.3. Sodium is 141 and the potassium is stable at 3.9. The BUN is up to 30 from 25 on 04/22/2022 and the creatinine is stable at 0.74 with a increased BUN/creatinine ratio of 40.4. Magnesium is normal at 1.9. Denies any further bleeding from his nose. no ST, cough, SOB. Feeling well and sleeping well. Denies feeling depressed. Objective Data Objective Data Vital Signs: Vital Signs Temp Pulse Resp BP Pulse Ox O2 Del Method 97.4 F L 84 16 122/67 H 100 Room Air 05/01/22 07:40 05/01/22 08:23 05/01/22 07:40 05/01/22 08:23 05/01/22 07:40 05/01/22 07:40 Oxygen Delivery Method Room Air Weight: 169 lb 5.04 oz Body Mass Index (BMI) 24.3 Intake & Output: Intake and Output for Last 24 Hours 04/29/22 04/30/22 05/01/22 23:59 23:59 23:59 Intake Total 840 / 900 1600 / 1600 600 / 600 Output Total 150 / 150 Balance 690 / 750 1600 / 1600 600 / 600 Medical Nutrition Assessment Dietitian: Malnutrition Criteria Met Start: 04/12/22 15:52 Freq: Status: Active Protocol: Document 04/18/22 13:08 (Rec: 04/18/22 13:08 [id number]) Nutrition Malnutrition Evidence of Malnutrition Exists No Malnutrition (severe): Acute Illness/Injury Intake Problem Increased Nutrient Needs (specify) Etiology (protein/calories) related to stroke Signs/Symptoms as evidenced by unintentional wt loss during recovery from stroke Status Active Problem Clinical Problem Acute Disease or Injury Related Malnutrition Etiology - Signs/Symptoms - Status Resolved Problem Biting/Chewing Difficulty Etiology related to dysphagia Signs/Symptoms as evidenced by need for mechanically altered diet Status Active Problem Recommendation Dietitian Recommendations/Changes continue regular diet-texture/ consistency per STRAND AND BINDER CONTROLLER; ensure pudding w/ dinner, magic cup at lunch, ensure plus high protein 120mL 4x/day w/ medpass for additional calories/protein if consumed. Lab / Micro Data Result Diagrams: 05/01/22 05:13 05/01/22 05:13 Labs: Laboratory Results - last 24 hr 05/01/22 05:13: Hgb 12.3 L, Hct 39.2 L 05/01/22 05:13: Sodium 141, Potassium 3.9, Chloride 109 H, Carbon Dioxide 25.0, Anion Gap 7, BUN 30 H, Creatinine 0.74, Estim Creat Clear Calc 62.86, Est GFR (MDRD) Af Amer 131, Est GFR (MDRD) Non-Af 108, BUN/Creatinine Ratio 40.4 H, Glucose 107 H, Calcium 9.2, Magnesium 1.9 Physical Exam Const alert and no apparent distress General Appearance: cooperative HEENT HEENT Narrative: no bleeding from the nose today and he denies any nasal congestion. Mouth: dry mucous membranes Resp clear to auscultation bilaterally Cardio Cardio Narrative: Irregular irregular with controlled ventricular response. GI normal to inspection, nondistended, normoactive bowel sounds and soft to palpation Extremity no calf tenderness General Extremity: Negative for edema Assessment & Plan Assessment/Plan (1) Debility: (2) Acute ischemic left MCA stroke: (3) Right hemiplegia: (4) Dysphagia: (5) Normochromic normocytic anemia: (6) Urinary incontinence: (7) GERD with esophagitis: (8) Cognitive dysfunction: (9) Epistaxis: PLAN: Plan 1. Continue therapy 2. Continue [place] to moisturize the nasal mucosa 3. Continue with Afrin 2 sprays each nostril 1-2 times daily for recurrent epistaxis 4. Discharge plan for 05/04/2022 to [facility]. Charges/Coding Visit Charges Inpatient E&M: 83241 [facility] L1
[2022-05-01 19:37] VITALS: BP 123/63; PULSE 89; RESP 17; TEMP 36.3; O2SAT 96
[2022-05-01 21:01] VITALS: PULSE 88
[2022-05-01] MEDS: Doxazosin 1 MG Tablet PO (21:01)
[2022-05-01] MEDS: Senna/Docusate Sodium 1 Tablet PO (21:02)
[2022-05-01] MEDS: Atorvastatin Calcium 80 MG Tablet PO (21:02)
[2022-05-01 22:00] VITALS: PULSE 88; RESP 16; O2SAT 96
[2022-05-02] MEDS: Sodium Chloride 0.65% 1 SPRAY SPRAY.BTL NASAL ×4 (05:30→21:02)
[2022-05-02] MEDS: Menthol/Lanolin/Calamine/Znox 113 GM Tube 1 APPLIC TOPICAL ×2 (05:31→21:02)
[2022-05-02] MEDS: Acetaminophen 500 MG Tablet 1000 MG PO ×3 (05:31→21:01)
[2022-05-02 07:22] VITALS: BP 113/75; PULSE 79; RESP 16; TEMP 36.2; O2SAT 97
[2022-05-02 09:56] VITALS: BP 113/75; PULSE 79
[2022-05-02] MEDS: Tamsulosin HCl 0.4 MG Capsule PO (09:56)
[2022-05-02] MEDS: Oxymetazoline 0.05% 1 SPRAY SPRAY.BTL 2 SPRAY NASAL (09:56)
[2022-05-02] MEDS: Multivitamin (Healthy Eyes) Capsule 1 CAP PO (09:56)
[2022-05-02] MEDS: Pantoprazole Sodium 40 MG Tablet PO ×2 (09:56→21:01)
[2022-05-02] MEDS: Clopidogrel Bisulfate 75 MG Tablet PO (09:56)
[2022-05-02] MEDS: Metoprolol Tartrate 50 MG Tablet PO ×2 (09:56→21:01)
[2022-05-02] MEDS: APIXABAN 5 MG TABLET PO ×2 (09:56→21:00)
[2022-05-02] MEDS: Arthritis Pain Compound 60 CLICK TUBE TOPICAL ×2 (09:57→21:02)
[2022-05-02] MEDS: Ensure Plus High Protein 120 ML LIQUID PO ×4 (09:57→21:01)
--- NOTE | 2022-05-02 14:23 | PCM.TXEXTCAR ---
Diet Diet Order/Speech Therapy: 04/25/22 12:24 Diet: Regular - General Food consistency:: Regular Liquid Consistency:: Regular/Thin Is pt able to select menu?: Yes Diet Comments: magic cup w/lunch, ensure pudding w/ dinner, CUT SOLIDS to BITE SIZE PIECES Routine Orders/Code Status Enema Type: Fleetz Enema Frequency: Daily PRN Suppository Type: Dulcolax 10mg Suppository Frequency: Daily PRN O2 Liters per Minute: 1-2 O2 Frequency: PRN Keep PO Greater than or Equal to (%): 90 Code Status: Full Code Wound(s) bilat buttocks: Wound Type: Pressure Injury Therapies Weight Bearing: Full weight bearing Extremity Affected:: R side Physical Therapy: Eval and Treat Occupational Therapy: Eval and Treat Speech Therapy: Eval and Treat Problem/Diagnosis (1) Debility: Status: Acute Code(s): R53.81 - Other malaise Comment: Due to embolic CVA while off anticoagulation for L shoulder replacement. (2) Acute ischemic left MCA stroke: Status: Acute Code(s): I63.512 - Cerebral infarction due to unspecified occlusion or stenosis of left middle cerebral artery (3) Right hemiplegia: Status: Acute Code(s): G81.91 - Hemiplegia, unspecified affecting right dominant side (4) Dysphagia: Status: Acute Code(s): R13.10 - Dysphagia, unspecified (5) Normochromic normocytic anemia: Status: Acute Code(s): D64.9 - Anemia, unspecified Comment: HGB is stable at 12.3 on 05/01/22 (6) Urinary incontinence: Status: Acute Code(s): R32 - Unspecified urinary incontinence Comment: Persistent urinary incontinence with no urine retention on postvoid residuals. (7) GERD with esophagitis: Status: Acute Code(s): K21.00 - Gastro-esophageal reflux disease with esophagitis, without bleeding Comment: Continue Protonix 40 mg p.o. twice daily and follow-up with Dr. Garcia in May. (8) Cognitive dysfunction: Status: Acute Code(s): F09 - Unspecified mental disorder due to known physiological condition Comment: Improving. (9) Epistaxis: Status: Acute Code(s): R04.0 - Epistaxis Comment: resolved (10) Urine retention: Status: Resolved Code(s): R33.9 - Retention of urine, unspecified Comment: PVR's are all less than 200 at the time of DC. Plan 1. Continue therapy 2. Continue [place] to moisturize the nasal mucosa 3. Continue with Afrin 2 sprays each nostril 1-2 times daily for recurrent epistaxis 4. Discharge plan for 05/04/[address] [facility]. Allergies/Procedures Done in Hospital Allergies No Known Allergies Allergy (Verified 02/19/22 15:43) Procedures: None Type of Care/Length of Stay Estimated LOS: Convalescent Care Less Than 30 days Type of Care Needed: Skilled Rehab Potential: Poor Prognosis: Fair Additional Orders/Day of Discharge H&P will serve as current which was dated: 04/15/22 Day of Discharge: 05/04/22 Dietary and Speech Recommendations Dietitian Recommendations/Changes: continue regular diet-texture/consistency per WOOL GROWER; ensure pudding w/ dinner, magic cup at lunch, ensure plus high protein 120mL 4x/day w/ medpass for additional calories/protein if consumed. Follow Up Care Please follow up with your Primary Care Physician in: following DC from acute rehab Please Follow Up With: neurology Please Follow Up With: cardiology Discharge Plan Admission Admit Date/Time: 04/12/22 11:20 Primary Reason for Your Visit: Debility due to L MCA embolic CVA Attending Provider: Janneth Varma Discharge Orders/Prescriptions Prescriptions: New acetaminophen 500 mg Tablet 1,000 mg PO Q8 Qty: 0 0RF Arthritis Pain Compound 0 click topical BID Qty: 0 0RF bisacodyl 10 mg Suppository 10 mg CO .PRN X 1 PRN (Reason: Constipation) Qty: 0 0RF Ensure Plus High Protein 0.08 gram-1.5 kcal/mL Liquid 120 ml PO 4X/DAY Qty: 0 0RF magnesium hydroxide 400 mg/5 mL Suspension 30 ml PO .PRN X 1 PRN (Reason: Constipation) Qty: 0 0RF Deep Sea Nasal 0.65 % Aerosol,[place] 1 spray NASAL ACHS Qty: 0 0RF oxymetazoline [Afrin (oxymetazoline)] 0.05 % spray,non-aerosol 2 spray intranasal Q12H PRN (Reason: epistaxis) 3 Days Qty: 15 0RF Continued atorvastatin 80 mg Tablet 80 mg PO QHS clopidogrel [Plavix] 75 mg Tablet 75 mg PO DAILY tamsulosin [Flomax] 0.4 mg Capsule 0.4 mg PO DAILY metoprolol tartrate 50 mg Tablet 50 mg PO BID Eliquis 5 mg Tablet 5 mg PO BID vit A-vit C-vit [id number]-covyek 7,160-113-100 [id number] Tablet 1 tab PO DAILY doxazosin 1 mg tablet 1 mg PO QHS sennosides-docusate sodium [Stool Softener-Stimulant Laxat] 8.6-50 mg tablet 1 tab PO QHS pantoprazole 40 mg tablet,delayed release (DR/EC) 40 mg PO BID menthol-zinc oxide [Calmoseptine] 0.44-20.6 % ointment 1 applic topical BID@0600,2200 Protocol: *Topical Application Instructions APPLICATION INSTRUCTIONS: apply to buttocks and coccyx Discontinued acetaminophen [Tylenol] 325 mg Tablet 650 mg PO Q4H PRN (Reason: Pain) Disposition Disposition (needs filled in before D/C Order can be placed): Care Home Facility
[2022-05-02 20:47] VITALS: BP 107/69; PULSE 73; RESP 15; TEMP 36.6; O2SAT 100
[2022-05-02] MEDS: Doxazosin 1 MG Tablet PO (21:00)
[2022-05-02 21:01] VITALS: BP 109/72; PULSE 96
[2022-05-02] MEDS: Atorvastatin Calcium 80 MG Tablet PO (21:01)
[2022-05-02] MEDS: Senna/Docusate Sodium 1 Tablet PO (21:01)
[2022-05-02 22:00] VITALS: PULSE 93; RESP 16; O2SAT 97
[2022-05-03] MEDS: Sodium Chloride 0.65% 1 SPRAY SPRAY.BTL NASAL ×4 (06:17→22:34)
[2022-05-03] MEDS: Acetaminophen 500 MG Tablet 1000 MG PO ×3 (06:17→22:34)
[2022-05-03] MEDS: Menthol/Lanolin/Calamine/Znox 113 GM Tube 1 APPLIC TOPICAL ×2 (06:19→22:35)
[2022-05-03] MEDS: Arthritis Pain Compound 60 CLICK TUBE TOPICAL ×2 (07:31→22:35)
[2022-05-03 07:32] VITALS: BP 114/71; PULSE 57
[2022-05-03] MEDS: Tamsulosin HCl 0.4 MG Capsule PO (07:32)
[2022-05-03] MEDS: Metoprolol Tartrate 50 MG Tablet PO ×2 (07:32→22:35)
[2022-05-03] MEDS: Ensure Plus High Protein 120 ML LIQUID PO ×4 (07:32→22:37)
[2022-05-03] MEDS: Multivitamin (Healthy Eyes) Capsule 1 CAP PO (07:32)
[2022-05-03] MEDS: Pantoprazole Sodium 40 MG Tablet PO ×2 (07:32→22:34)
[2022-05-03] MEDS: APIXABAN 5 MG TABLET PO ×2 (07:32→22:35)
[2022-05-03] MEDS: Clopidogrel Bisulfate 75 MG Tablet PO (07:32)
[2022-05-03 07:43] VITALS: BP 114/71; PULSE 57; RESP 17; TEMP 36.2; O2SAT 98
--- NOTE | 2022-05-03 17:27 | PCM.DC.SUM ---
Providers Date of Admission: 04/12/22 Date of Discharge: 05/04/22 Reason For Visit: DEBILITY due to embolic L MCA CVA Diagnosis Discharge Diagnosis (1) Debility: Status: Acute Code(s): R53.81 - Other malaise (2) Acute ischemic left MCA stroke: Status: Acute Code(s): I63.512 - Cerebral infarction due to unspecified occlusion or stenosis of left middle cerebral artery (3) Right hemiplegia: Status: Acute Code(s): G81.91 - Hemiplegia, unspecified affecting right dominant side (4) Dysphagia: Status: Acute Code(s): R13.10 - Dysphagia, unspecified (5) Normochromic normocytic anemia: Status: Acute Code(s): D64.9 - Anemia, unspecified (6) Urinary incontinence: Status: Acute Code(s): R32 - Unspecified urinary incontinence (7) GERD with esophagitis: Status: Acute Code(s): K21.00 - Gastro-esophageal reflux disease with esophagitis, without bleeding (8) Cognitive dysfunction: Status: Acute Code(s): F09 - Unspecified mental disorder due to known physiological condition (9) Epistaxis: Status: Resolved Code(s): R04.0 - Epistaxis (10) Urine retention: Status: Resolved Code(s): R33.9 - Retention of urine, unspecified Plan Discharge plan for 05/04/[address] [facility]. Follow up with Dr. Garcia in the next 1-2 months Medications at Discharge Home Medications apixaban 5 mg tablet (Eliquis) 5 mg PO BID Check with primary doctor 02/19/22 atorvastatin 80 mg tablet 80 mg PO QHS cholesterol 02/19/22 clopidogrel 75 mg tablet (Plavix) 75 mg PO DAILY Check with primary doctor 02/19/22 metoprolol tartrate 50 mg tablet 50 mg PO BID BP 02/19/22 tamsulosin 0.4 mg capsule (Flomax) 0.4 mg PO DAILY retention 02/19/22 vit A 7,160 unit-vit C 113 mg-vit E 100 [id number] tablet 1 tab PO DAILY Check with primary doctor 02/19/22 doxazosin 1 mg tablet 1 mg PO QHS urine 04/12/22 menthol 0.44 %-zinc oxide 20.6 % topical ointment (Calmoseptine) 1 applic topical BID@0600,2200 cream 04/12/22 pantoprazole 40 mg tablet,delayed release 40 mg PO BID heartburn 04/12/22 sennosides 8.6 mg-docusate sodium 50 mg tablet (Stool Softener-Stimulant Laxative) 1 tab PO QHS constipation 04/12/22 Arthritis Pain Compound 0 click topical BID ##0 05/02/22 acetaminophen 500 mg tablet 1,000 mg PO Q8 #0 tabs 05/02/22 bisacodyl 10 mg rectal suppository 10 mg IN .PRN X 1 PRN Constipation #0 ea 05/02/22 food supplemt, lactose-reduced 0.08 gram-1.5 kcal/mL oral liquid (Ensure Plus High Protein) 120 ml PO 4X/DAY #0 mL 05/02/22 magnesium hydroxide 400 mg/5 mL oral suspension 30 ml PO .PRN X 1 PRN Constipation #0 mL 05/02/22 oxymetazoline 0.05 % nasal spray (Afrin (oxymetazoline)) 2 spray intranasal Q12H PRN epistaxis 3 days #15 mL 05/02/22 sodium chloride 0.65 % nasal spray aerosol (Deep Sea Nasal) 1 spray NASAL ACHS #0 mL 05/02/22 Hospital Course Operations None Procedures None Summary of Care Provided Minutes Spent on Discharge: 35 Hospital Course: MIRI REES, is a 76 YO M well known to me from a recent admission to acute rehab at [facility] after a L MCA embolic CVA while off anticoagulation for AF due to a Left shoulder replacement. Mckinley was admitted to acute rehab on 02/19/22 and was discharged to [facility] on 03/14/22.? At the time of discharge Mckinley was still NWB on the Left arm after a shoulder replacement.?He was flaccid on the R side due to CVA and was unable to significantly progress in therapy because he could not use either arm. While at [facility] he was released to start bearing wt on the LUE and he was transferred back to acute rehab at [facility] for additional aggressive therapy for 3 hours a day to restore function at or near his level prior to the stroke.? Mckinley was living independently prior to the CVA and was independent with all ADL's.? Art had an uneventful stay in rehab. There were no significant complications. Vital signs have been stable and his blood pressure is well controlled. He has had good oral intake. His weight has been stable and at the time of discharge his weight is 171.7 pounds. Hemoglobin is stable at 12.3 on 05/01/2022. Creatinine is stable at 0.74. BUN is mildly increased most times secondary to only a fair fluid intake. Prior to discharge Art was able to propel a wheelchair up to 165 feet at standby assist. He is able to maneuver the wheelchair through a narrow doorway and able to The wheelchair up to prepare for stand pivot into the recliner. He has ambulated up to 22 feet using the wall rail at max assist x1 with wheelchair follow. The physical therapist is still advancing his right lower extremity and blocking the right knee. On 1222 he was mod assist x2 with a hemiwalker to take small hopping steps with his left lower extremity with improved efficiency. He is still requiring total assistance with upper body dressing, lower body dressing, toileting, toilet transfer and tub/shower transfer. He requires mod assist with bathing at the time of DC. He is being transferred to [facility] on 05/04/22 for additional half-way/therapy. Physical Exam Const alert and no apparent distress Constitutional Narrative: He is much more alert than when he left rehab the first time. He is making good eye contact with the therapists as they speak to him. Good color in his face and improved facial expression. the Facial droop is much improved but, not gone. General Appearance: cooperative Orientation / Consciousness: confused HEENT normocephalic Eyes PERRL and EOMs intact bilaterally Neck supple, no JVD and nodes Lymph Lymphatic: Negative for lymphadenopathy Resp normal respiratory effort and clear to auscultation bilaterally Resp Narrative: no SOB lying flat in bed. Diminished in the bases but no crackles or wheezes appreciated. Effort and Inspection: Negative for tachypneic, respiratory distress or uses accessory muscles Cardio no murmurs and no gallops Cardio Narrative: Irregular irregular with controlled ventricular response. GI normal to inspection, nondistended, normoactive bowel sounds, soft to palpation and non-tender GI Narrative: No guarding with palpation Extremity no calf tenderness Extremity Narrative: He can not lift the RUE however, when OT does ROM with him he c/o pain when going up towards 180 degrees. General Extremity: Negative for cyanosis or edema Skin no wounds, no jaundice and no mottling General Skin Exam: no breakdown Rashes: no rashes Neuro Neuro Narrative: Less facial droop than when he left acute rehab for WVM. More alert. Still flaccid in the RUE......can not even substation technician. RLE is also flaccid and he can not advance it when walking on the wall rail. The therapist advances the RLE and then blocks the knee for him. Still confused at times but, better than when he initially left acute rehab. Feeding himself now. Remains incontinent of urine but, no urine retention. Still requiring mostly total assist with all ADL's. Psych cooperative and affect normal Psych Narrative: He does not seem depressed. He denies feeling depressed and he is eating well, sleeping well, participating well with therapy and never refuses therapy. He is pleasant and talkative. Appearance: appropriate Medical Records Data Medical Nutrition Assessment Dietitian: Malnutrition Criteria Met Start: 04/12/22 15:52 Freq: Status: Active Protocol: Document 04/18/22 13:08 (Rec: 04/18/22 13:08 [id number]) Nutrition Malnutrition Evidence of Malnutrition Exists No Malnutrition (severe): Acute Illness/Injury Intake Problem Increased Nutrient Needs (specify) Etiology (protein/calories) related to stroke Signs/Symptoms as evidenced by unintentional wt loss during recovery from stroke Status Active Problem Clinical Problem Acute Disease or Injury Related Malnutrition Etiology - Signs/Symptoms - Status Resolved Problem Biting/Chewing Difficulty Etiology related to dysphagia Signs/Symptoms as evidenced by need for mechanically altered diet Status Active Problem Recommendation Dietitian Recommendations/Changes continue regular diet-texture/ consistency per SENIOR STRATEGY MANAGER; ensure pudding w/ dinner, magic cup at lunch, ensure plus high protein 120mL 4x/day w/ medpass for additional calories/protein if consumed. Weight / BMI Weight Weight: 171 lb 11.841 oz Body Mass Index (BMI) 24.3 ABG / Lab / Microbiology Data Result Diagrams: 05/01/22 05:13 05/01/22 05:13 D/C Instructions Please Follow Up With: neurology Meaningful Use Info Meaningful Use Diagnoses (Choose all that apply): Ischemic CVA CVA Therapy Assessed for PT,OT and/or ST?: Yes Ischemic Stroke Antithrombotic order at d/c?: Yes Dx of Atrial fib/flutter?: Yes Anticoagulant at discharge?: Yes Statins at discharge?: Yes Primary Dx Acute Ischemic CVA?: Yes IV tPA ordered during stay?: No Reason IV t-PA not ordered: Treatment not Indicated Discharge Plan Admission Admit Date/Time: 04/12/22 11:20 Primary Reason for Your Visit: Debility due to L MCA embolic CVA Attending Provider: Janneth Varma Discharge Orders/Prescriptions Prescriptions: New acetaminophen 500 mg Tablet 1,000 mg PO Q8 Qty: 0 0RF Arthritis Pain Compound 0 click topical BID Qty: 0 0RF bisacodyl 10 mg Suppository 10 mg IN .PRN X 1 PRN (Reason: Constipation) Qty: 0 0RF Ensure Plus High Protein 0.08 gram-1.5 kcal/mL Liquid 120 ml PO 4X/DAY Qty: 0 0RF magnesium hydroxide 400 mg/5 mL Suspension 30 ml PO .PRN X 1 PRN (Reason: Constipation) Qty: 0 0RF [place] Nasal 0.65 % Aerosol,[place] 1 spray NASAL ACHS Qty: 0 0RF oxymetazoline [Afrin (oxymetazoline)] 0.05 % spray,non-aerosol 2 spray intranasal Q12H PRN (Reason: epistaxis) 3 Days Qty: 15 0RF Continued atorvastatin 80 mg Tablet 80 mg PO QHS clopidogrel [Plavix] 75 mg Tablet 75 mg PO DAILY tamsulosin [Flomax] 0.4 mg Capsule 0.4 mg PO DAILY metoprolol tartrate 50 mg Tablet 50 mg PO BID Eliquis 5 mg Tablet 5 mg PO BID vit A-vit C-vit U-rbuj-ulytvc 7,160-113-100 oyzv-za-frbm Tablet 1 tab PO DAILY doxazosin 1 mg tablet 1 mg PO QHS sennosides-docusate sodium [Stool Softener-Stimulant Laxat] 8.6-50 mg tablet 1 tab PO QHS pantoprazole 40 mg tablet,delayed release (DR/EC) 40 mg PO BID menthol-zinc oxide [Calmoseptine] 0.44-20.6 % ointment 1 applic topical BID@0600,2200 Protocol: *Topical Application Instructions APPLICATION INSTRUCTIONS: apply to buttocks and coccyx Discontinued acetaminophen [Tylenol] 325 mg Tablet 650 mg PO Q4H PRN (Reason: Pain) Disposition Disposition (needs filled in before D/C Order can be placed): Long-Term Facility Charges/Coding Visit Charges Inpatient E&M: 48810 Disch Hosp
[2022-05-03 20:21] VITALS: BP 112/65; PULSE 86; RESP 16; TEMP 36.8; O2SAT 98
[2022-05-03 22:31] VITALS: BP 138/68; PULSE 85
[2022-05-03 22:35] VITALS: BP 138/68; PULSE 85
[2022-05-03] MEDS: Doxazosin 1 MG Tablet PO (22:35)
[2022-05-03] MEDS: Atorvastatin Calcium 80 MG Tablet PO (22:35)
[2022-05-04] MEDS: Acetaminophen 500 MG Tablet 1000 MG PO (05:53)
[2022-05-04] MEDS: Sodium Chloride 0.65% 1 SPRAY SPRAY.BTL NASAL ×2 (05:53→10:46)
[2022-05-04] MEDS: Menthol/Lanolin/Calamine/Znox 113 GM Tube 1 APPLIC TOPICAL (05:53)
[2022-05-04 07:20] VITALS: BP 128/67; PULSE 83; RESP 15; TEMP 36.2; O2SAT 97
[2022-05-04] MEDS: Arthritis Pain Compound 60 CLICK TUBE TOPICAL (10:18)
[2022-05-04 10:19] VITALS: BP 128/67; PULSE 86
[2022-05-04] MEDS: Metoprolol Tartrate 50 MG Tablet PO (10:19)
[2022-05-04] MEDS: Multivitamin (Healthy Eyes) Capsule 1 CAP PO (10:19)
[2022-05-04] MEDS: Tamsulosin HCl 0.4 MG Capsule PO (10:19)
[2022-05-04] MEDS: Clopidogrel Bisulfate 75 MG Tablet PO (10:19)
[2022-05-04] MEDS: APIXABAN 5 MG TABLET PO (10:19)
[2022-05-04] MEDS: Pantoprazole Sodium 40 MG Tablet PO (10:19)
[2022-05-04] MEDS: Ensure Plus High Protein 120 ML LIQUID PO (10:20)
--- NOTE | 2022-05-04 10:30 | NURSING ---
This nurse had to leave message on the skilled unit voicemail for nurse to call back for report.
--- NOTE | 2022-05-04 11:05 | NURSING ---
Patient discharged at this time with ambulance company back to [facility] where he came from for skilled rehab.
== END 2022-05-04 11:05 | disposition skilled nursing facility (03) | DRG 57 ==
PROVIDERS: Admitting Provider Internal Medicine; Visit Provider Internal Medicine
DX: I69.351 Hemiplegia and hemiparesis following cerebral infarction affecting right dominant side (principal); D64.9 Anemia, unspecified; E11.9 Type 2 diabetes mellitus without complications; E87.6 Hypokalemia; E78.5 Hyperlipidemia, unspecified; I48.91 Unspecified atrial fibrillation; K21.9 Gastro-esophageal reflux disease without esophagitis; I10 Essential (primary) hypertension; K22.70 Barrett's esophagus without dysplasia; I69.391 Dysphagia following cerebral infarction; I69.392 Facial weakness following cerebral infarction; R13.10 Dysphagia, unspecified; R04.0 Epistaxis; Z87.891 Personal history of nicotine dependence; R33.8 Other retention of urine; R32 Unspecified urinary incontinence; Z23 Encounter for immunization; Z96.612 Presence of left artificial shoulder joint; Z79.899 Other long term (current) drug therapy; Z79.01 Long term (current) use of anticoagulants; Z79.02 Long term (current) use of antithrombotics/antiplatelets; N40.1 Benign prostatic hyperplasia with lower urinary tract symptoms
CPT/HCPCS: 0134A; 36415; 80048; 80053; 81001; 83735; 84100; 85014; 85018; 85027; 87426; 91313; 92507; 92523; 92526; 97110; 97112; 97116; 97140; 97162; 97166; 97530; 97535; 97542; 97802; 97803; 99251; G0008; 90686; G0463

== ENCOUNTER 2023-01-06 11:00 | Outpatient (RCR) | payer MEDICARE, OTHER, SELFPAY ==
--- NOTE | 2022-08-23 07:48 | HP.OTEVAL_ITS ---
Patient's Visit Information MIRI REES is a 76 year old M, referred to Occupational Therapy by Dr. Eligio Contreras MD, with a diagnosis of right side paralyzed, CVA. Date of Evaluation: 08/22/22 Occupational Therapist: Denisha Villavicencio, SHAWNEER/Elvis, CHT - Subjective This 76 year old male was seen for OT eval with dx of CVA. per records from [facility] : MIRI REES, is a 76 YO M well known to me with Review of [facility] chart fond to have CVA noted on 02/06/22. pt arrives to outpatient therapy from [facility] in [place] no staff accompanying pt to assist in answering questions as pt also has dx of Dysphagia /Aphasia. INFORMATION WAS PULLED FROM HOSPITAL RECORDS DUE TO PTs inability to verbalized date span of his Medical HX. MIRI REES, is a 76 YO M well known to me from a recent admission to acute rehab at [facility] after a L MCA embolic CVA while off anticoagulation for AF due to a Left shoulder replacement. Mckinley was admitted to acute rehab on 02/19/22 [address] discharged to [facility] on 03/14/22.? At the time of discharge Mckinley was still NWB on the Left arm after a shoulder replacement.?He was flaccid on the R side due to CVA and was unable to significantly progress in therapy because he could not use either arm. While at [facility] he was released to start bearing wt on the LUE and he was transferred back to acute rehab at [facility] for additional aggressive therapy for 3 hours a day to restore function at or near his level prior to the stroke.? Mckinley was living independently prior to the CVA and was independent with all ADL's.?. Mckinley had an uneventful stay in rehab. There were no significant complications. Vital signs have been stable and his blood pressure is well controlled. He has had good oral intake. His weight has been stable and at the time of discharge his weight is 171.7 pounds. Hemoglobin is stable at 12.3 on 05/01/2022. Creatinine is stable at 0.74. BUN is mildly increased most times secondary to only a fair fluid intake. Prior to discharge Art was able to propel a wheelchair up to 165 feet at standby assist. He is able to maneuver the wheelchair through a narrow doorway and able to. The wheelchair up to prepare for stand pivot into the recliner. He has ambulated up to 22 feet using the wall rail at max assist x1 with wheelchair follow. The physical therapist is still advancing his right lower extremity and blocking the right knee. On 1223 he was mod assist x2 with a hemiwalker to take small hopping steps with his left lower extremity with improved efficiency. He is still requiring total assistance with upper body dressing, lower body dressing, toileting, toilet transfer and tub/shower transfer. He requires mod assist with bathing at the time of DC. He is being transferred to [facility] on [place]04[place] [facility]. [facility] indicates pt was admitted on 06/04/22. pt is unable to communicate if he has had more therapy since he started residing at [facility]. - ADLs Comments: pt reports he is Dep for bathing and dressing (Staff from [place] assist pt). pt currently is eating with left hand (prior to Stroke pt was right handed) - ROM ROM Comments: Right UE no active movement. Left UE WFL - Strength Shoulder: right Unable to test left 5/5 Skip Pitman: right Unable left 65# Lateral Pinch: right unable 12# Tripod Pinch: right unable left 10# Strength Comments: pt demo left UE MMT 5/5. pt demo with right UE tone but no active motion MMT 0/5 - Sensation Sensation Comments: pt verbalizes tingling of right UE but no movement - Movement Muscle Tone: right UE MOD/MAX Movement Comments: pt demo with MOD tone of right shoulder. pt demo with MAX tone right elbow. pt demo with MAX tone of right forearm. pt demo with Mod tone of wrist. OA changes with some flexion contractures of right digits - Quick DASH-Disab of Arm,Shoulder& Hand Quick DASH Score: 90.9075 - Goals Goal:: pt will demo increase in right UE ROM to 50% of unaffected UE ROM to increase ease of dressing by d/c. pt will demo the ability to perform PROM of right UE throughout 75% of ROM without difficulty/pain or tone limiting pt by d/ c. 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 pt will demo increase in fluid elbow ROM be able to feed self by d.c Goal:: pt may need night orthosis to prevent digit contractures and skin break down. will speak with NH to see what is available. - Rehabilitation General Assessment: pt demo with right UE tone of MOD/MAX limiting PROM ability- noted digit contractures increasing risk of skin breakdown. pt would benefit from skilled OT services 2x week for 4 weeks to address pts deficits- Goals will focus on increasing right UE ROM, function or assistive UE. pt verbalizes understanding and agrees to POC. Rehabilitation Potential: Good - Anticipated Interventions A/AAROM/PROM, Strengthening, Fine Motor Coord/Iglesia, Neuro Reeducation, Education re assistive Equipment, Education re Diagnosis, Caregiver Training - Visit Plan Frequency: 2x /Week Duration: 4 Weeks TEXT: Thank you for the opportunity to evaluate your patient. For Medicare and Medicare HMO plans, please review the plan of care and approve it. It will need to be FAXED BACK to us at [phone] for Medicare purposes. Please let me know if there are questions or concerns regarding this plan of care. Physician Signature: Date:
--- NOTE | 2022-08-23 16:39 | HP.SP.EVAL ---
Visit History - Visit Info Date of Eval: 08/22/22 Visit: 1 Patient's Approved Number of Visits: 10 Charting Clerk: BRYN - History Attending Doctor: Reason for Referral: CVA . RX HERE Date of Onset of Diagnosis: 02/07/2022 Previous speech therapy: Yes Results: Pt participated in nearly 5 weeks of speech therapy while admitted in the inpatient rehabilitation unit at [facility]. During his admission goals were created to target oropharyngeal dysphagia, confrontation naming, automatic speech, and orientation to self and personal information. During admission, Pt's diet was upgraded from pureed solids and thin liquids to regular solids and thin liquids by the time of discharge - Pt does have a hx of a MBSS on 02/27/23. At 05/02/22 d/c Pt presented w/ non-fluent aphasia w/ frequent word and sound substitutions. Confrontation naming w/ 70% accuracy. Answering simple yes/no ?s w/ 100% accuracy and complex/comparison ?s w/ 90% accuracy. Diet advanced to regular textures/thin liquids w/ solids cut into bite sized pieces. Other Relevant Medical History/Diagnoses/Surgery: JHONATHAN REES is a 76 year old male who presents to [facility] speech therapy for evaluation following a CVA per the physician's order. Other speech related dx on the order include aphasia, oropharyngeal dysphagia, and dysarthria. Pt dropped off by [facility] - no one accompanied him. Pt confused as to why he was here upon initial questioning however asked if he had a stroke, Pt reporting yes. Pt presenting with severe expressive aphasia and moderate dysarthria. Pt's paperwork reporting he is eating a regular solid and thin liquid diet at the SNF - unclear if there are any safe swallowing strategies he is adhering to. Pt does present with significant right facial droop. PER HOSPITAL RECORDS: 02/07/2022 JHONATHAN REES, is a 76 Male w/ a PMHx of Afib, Cataract, Diabetes, History of skin cancer, Hyperlipidemia, Hypertension, Stroke, admitted to Neuro ICU at [facility] for left MCA stroke. Transferred from [facility] with findings consistent with left MCA stroke. Patient has history of atrial fibrillation on Eliquis, but Eliquis was held for elective left shoulder replacement surgery. Postoperatively, patient developed right upper ad lower extremity weakness, facial droop, aphasia. CTA showed left cervical ICA occlusion with distal reconstitution, then re-occlusion at M2. Transferred to [facility] to consider mechanical thrombectomy. TNK (thrombolytic) given. Patient diaphoretic with ST elevation inferiorly on EKG. NIHSS 18, atrial flutter, EKG suggestive of late CO. Patient underwent thrombectomy, left ICA stent. Blood pressure controlled, Atorvastatin 80mg started, PT/OT/ST for left MCA stroke. Aspirin held due to TNK administration. 02/19/2022 Admit to for 3 hours daily PT/OT/ST for left MCA stroke. Smoking Status: Former smoker - Diagnosis Diagnosis: Moderate-Severe Expressive Aphasia, Moderate Dysarthria, Oropharyngeal Dysphagia - Pain Is pain an issue with your current prescribed condition?: No - Personal Preferred language: [place] Islander History - Pain Is pain an issue with your current prescribed condition?: No Patient Allergies - Allergies Allergies No Known Allergies Allergy (Verified 02/19/22 15:43) Subjective Dysphagia - Current Diet Solids Current Diet: Regular Other: Per SNF documentation - Current Diet Liquids Current Liquids: Thin Other: Per SNF documentation BDAE-3 - [place] Diagnostic Aphasia Examination BDAE-3 Administered: Yes BDAE-3: The BDAE-3 assesses communication in the areas of: conversational and expository speech, auditory comprehension, oral expression, reading and writing. Date: 08/22/22 - Severity Level: 2 Level Detail: Conversation about familiar subjects is possible with help from listener. Frequent failures to convey the idea, but the patient shares the burden of communication. - Rating Scale Profile of speech character Articulation Agility: 4 Detail: Facility at phoneme and syllable level ranges from 1 being unable to form speech sounds to 7 being never impaired Phrase length: 6 Detail: Longest occasional uninterrupted word runs Grammatical form: 6 Detail: Variety of grammatical constructions; use of grammatical mophemes: 1=nosyntactic word groupings ranging to 7 being normal range of syntax; normal facility with grammatical words Melodic Line (Prosody): 4 Detail: 1=word b word or aprosodic speech ranging to 7 being normal speech lee ann Paraphasia in running speech: 4 Detail: 1 present in evrey utterance ranging to 7 s absent Word finding relative to fluency: 2 Detail: 1 is fluent but empty speech ranging to 7 as output primarily content words - Summary Profile Auditory Comprehension Basic word discrimination Percentile: 40 Commands Percentile: 20 Complex Ideational Material Percentile: 20 - Summary Profile Recitation Recitation automatized sequences Percentile: 100 - Summary Profile Repitition Repetition Percentile: 100 Words Percentile: 100 Sentences Percentile: 100 - Summary Profile Naming Responsive Naming Percentile: 60 [place] Naming Test Percentile: 70 Special Categories Percentile: to be continued - Summary Profile Paraphasia Phonemic example- Marvel for [place]: 20 percentile Verbal examples - for : 20 percentile Neologistic - example planker for comb: 100 percentile Multi-word: 20th percentile - Summary Profile Reading Matching cases and scripts: to be continued Number matching: to be continued Picture - word matching: to be continued Oral word reading: to be continued Oral sentence reading: to be continued Oral sentence comprehension: to be continued Sentences/Paragraph comprehension: to be continued - Summary Profile Writing Form: to be continued Letter choice: to be continued Motor faclility: to be continued Primer words: to be continued Regular phonics: to be continued Common irregular words: to be continued Written picture naming: to be continued Narrative writing: to be continued - BDAE-3 Comments Free Conversation Transcript When asked to tell ST about what he did for work 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 Pt ended response and did not benefit from max verbal and semantic cues or MC options. Cookie Theft Picture Description When asked to describe a picture scene Pt responding verbatim: Well taking cookie war [jar] with handle and he's standing on a stand is tipping over. Sink is spill..po...po...pouring out of the sink. Doesn't look like there's anything else happening. [cue] Little girl, little boy, and the boy's [jargon] [cue of 'she is their..'] mother. [cue] She's probably pretty ordinary. She doesn't look mad, upset, or frustrated. [cue] Waiting for her cookie. [cue] She's standing in the water. Item Analysis Commands: 2 components (2/2 followed); 3 components (2/3 followed); 5 components (1/5 followed). Yes/No: [place] questions following a short story with 50% acc. Auditory Comprehension following a short-story: 50% acc. Automatic Sentences: MARQUISE = 100%; Counting 1-21 = 100%. Repetition: Single Words = 100%; Sentences with 3 words = 100% and Sentence with 9 words = 33%. Naming: Responsive (What do we tell time with?) = 80%; Confrontation = 66% acc (palette = paylette; octopus = oct oct octopus) Plan - Plan Plan: Will recommend Pt for weekly outpatient speech therapy intervention address moderate expressive and receptive aphasia. Pt would benefit from skilled intervention to target fluency of expressive language and comprehension of receptive tasks. He would benefit from circumlocution training and immediate feedback to identify instances of paraphasia. Without skilled intervention Pt is at risk for difficulty returning to work at a level deemed appropriate for answering phone calls or communicating basic, medical, emergent, social wants & needs, and interacting with family/friends at home, during social interactions, and at work. Pt would also benefit from cont'd assessment of cognitive needs after progress with language skills improve to ensure performance is client relations representative of his true cognitive abilities and not an expressive/receptive language barrier. - Recommendations MBS: Yes Treatment Warranted: Yes Treatment Warranted: Receptive/ Expressive Language, Dysphagia, Cognition Comment: Will perform BSE next session and continue education on swallowing exercises. - Progress Prognosis: Good - Frequency Frequency: 2x /Week Additional (Frequency): 60 min. sessions. Duration: 10 weeks - Goals that are Established Determination:: Goals will be added/modified as deemed necessary and appropriate. Therapy will be discontinued when results of re-evaluation indicate therapy is no longer needed or lack of progress has been documented. - Goal #1-5 Goal #1: Jhonathan will demonstrate use of word finding strategies to complete biographical information and complex convergent/divergent naming tasks with 70% acc independently across 3 measured opportunities to improve word retrieval. Goal #2: Jhonathan will generate 3 sentences when given a target verb following WHO+verb+WHAT structure with 70% acc independently across 3 consecutively measured sessions. Goal #3: Jhonathan will generate 3 additional pieces of information answering WHERE/WHEN/WHY of one self-created WHO+verb+WHAT sentence with 2 of the 3 questions answered independently across 3 consecutively measured sessions. Goal #4: Rashawn will participate in auditory comprehension tasks with 65% acc independently following either oral presentation or encoding a passage across 3 measured opportunities. Goal #5: Jhonathan will complete oral motor exercises 10x per exercise 2x/day to aid in bolus manipulation, oral strengthening, ROM, and articulatory strength with no cues. Education - Patient has Indicated that the Following Identified Educational Needs: None The Patient has indicated that they have no educational or learning abilities that may effect their care.: Yes - Patient Instruction Patient Education: Diagnosis Person Taught: Patient Teaching Method: Discussion Response to teaching: Reinforcement needed, Unable to return demo
--- NOTE | 2022-08-26 12:54 | HP.PTEVAL_ITS ---
Patient's Visit Information MIRI REES is a 76 year old M referred to Physical Therapy by Dr. Eligio Contreras MD with a diagnosis of CVA. Date of Evaluation: 08/26/22 Physical Therapist: Bryan Bateman DPT, OCS, CSCS - Visit Plan Frequency: 2x /Week Duration: 4-6 Weeks Plan: 2x/week with OT and speech for... 1. 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 2. 'Transfers bed and chair. 3. standing balance with hemiwalker s tolerated. continually consider needs for possible gait. - Subjective Mechanic General Operational Test says: 02/06/22 and niece brings him and talks alot today. Had TSA on l UE then had stroke and loss use of R UE. Has cognitive in form of memory since then. In a wheelchair all day since stroke. Cannot walk , has walker and walker with platform according to niece and cane in room. Marko PT from home health was coming to [place] until a few weeks ago. Spend 11 days in ICu originally at [facility] then to rehab where he was for a month then to [place] for post acute for a month. L shoulder TSA precautions went away and back to [facility] for a month and then back to [place] for a month and now back to [place] since May. Now for outpatient therapy. Has not walked in a couple weeks, PT described to marti passive R leg movement. Was only taking a step or two. needs help to transfer and is thrown onto bed. 2 person assist at [place]. Toilet trasnfer sounds dependent and uses briefs due to stroke. Getting in bathtub dependent he says. From OT eval due to diminished communicative: This 76 year old male was seen for OT eval with dx of CVA. per records from [facility] : MIRI REES, is a 76 YO M well known to me with Review of [facility] chart fond to have CVA noted on 02/06/22. pt arrives to outpatient therapy from [facility] [place] in [place]/C no staff accompanying pt to assist in answering questions as pt also has dx of Dysphagia /Aphasia. INFORMATION WAS PULLED FROM HOSPITAL RECORDS DUE TO PTs inability to verbalized date span of his Medical HX. MIRI REES, is a 76 YO M well known to me from a recent admission to acute rehab at 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 Art was admitted to acute rehab on 02/19/22 and was discharged to [facility] on 03/14/22.? At the time of discharge Art was still NWB on the Left arm after a shoulder replacement.?He was flaccid on the R side due to CVA and was unable to significantly progress in therapy because he could not use either arm. While at [facility] he was released to start bearing wt on the LUE and he was transferred back to acute rehab at [facility] for additional aggressive therapy for 3 hours a day to restore function at or near his level prior to the stroke.? Mckinley was living independently prior to the CVA and was independent with all ADL's.?. Art had an uneventful stay in rehab. There were no significant complications. Vital signs have been stable and his blood pressure is well controlled. He has had good oral intake. His weight has been stable and at the time of discharge his weight is 171.7 pounds. Hemoglobin is stable at 12.3 on 05/01/2022. Creatinine is stable at 0.74. BUN is mildly increased most times secondary to only a fair fluid intake. Prior to discharge Art was able to propel a wheelchair up to 165 feet at standby assist. He is able to maneuver the wheelchair through a narrow doorway and able to. The wheelchair up to prepare for stand pivot into the recliner. He has ambulated up to 22 feet using the wall rail at max assist x1 with wheelchair follow. The physical therapist is still advancing his right lower extremity and blocking the right knee. On 1222 he was mod assist x2 with a hemiwalker to take small hopping steps with his left lower extremity with improved efficiency. He is still requiring total assistance with upper body dressing, lower body dressing, toileting, toilet transfer and tub/shower transfer. He requires mod assist with bathing at the time of DC. He is being transferred to [facility] on 05/04/22 for additional longterm/therapy. [facility] indicates pt was admitted on 06/04/22. pt is unable to communicate if he has had more therapy since he started residing at [facility]. No regular exercises. Was I prior to this stroke. Does some class exercises, in am. Spends day in chair. Works on puzzles throughout day. - Objective Pushed back to PT room in WC by marti, slouched back into chair entire time until cued, can scoot chair and sit up tall without ustilizing back of chair I for 5+ minutes. r UE has a lot of extensor tone and is not moved at all by patient. L LE moves well but max tight in HS and hip flexor. Mod in gastroc. Otherwise WFL ROM and strength at 4/5. R LE flaccid angelique no movement or palpable contractions, slight contraction in gluts /hip extension. Otherwise 0/5 strength. Sensation B LE to gross light touch is good. L UE AROM is good for his history, 130 flexion and [id number] ext rot, L5 IR. R UE flaccid and no palpable movement. Able to move sit to stand with mod A x1, does not utilize R LE for WB at all and hence is off balance and leaning R. Stand to sit with VC adn mod A for safety. Once I show him l weight shift to near SLS L, he can stand without hands on assist for about 60 seconds to day with all weight through L but fatigues quickly and unable to place or move R LE. Can barely get that heel on the ground dependently by therapist. Unable to ambulate today. max A to bed mobility noted form hermes. - Balance/Special Test Scores Lower Extremity Functional Score: 4 - Goals Goal 1:: I appropriate seated R LE stretches and L LE strength with help of family at home. Goal Time Frame: 4-6 Weeks Goal 2:: sit in chair for 30 minutes without using back of chair I without need VC Goal Time Frame: 4-6 Weeks Goal 3:: sit to stand at hemiwalker without VC and stand mod I 4 minutes Goal Time Frame: 4-6 Weeks Goal 4:: Plan to start ambulation if tolerated in R LE or consider bracing. Goal Time Frame: 4-6 Weeks - Rehabilitation Potential Physical Therapy Diagnosis: CVA, r sided flaccidity and weakness effecting mobility Rehabilitation Potential: Questionable - Anticipated Interventions Patient/Client Instruction: Educate patient on: Condition, Plan of Care For the Purpose of:: To decrease pain, To improve muscle performance and motor function, To increase tolerance to activity/condition/position, To improve ability of physical actions for home/community/work/leisure Therapeutic Exercise to Include: Strength training, Flexibilty training, Passive ROM, Active ROM For the Purpose of:: To increase ROM, To improve nutrient delivery to tissue, To improve muscle performance and motor function, To increase tolerance to activity/condition/position, To improve ability of physical actions for home/community/work/leisure, To improve gait and locomotor functions Thank you for the opportunity to evaluate your patient. For Medicare and Medicare HMO plans, please review the plan of care and approve it. It will need to be FAXED BACK to us at [phone] for Medicare purposes. For Medicare only, by signing this I certify the plan of care. Please let me know if there are questions or concerns regarding this plan of care. Physician Signature: Date:
--- NOTE | 2022-09-26 10:31 | HP.PTDCSUM_ITS ---
It has been my pleasure to treat MIRI REES referred by Dr. Eligio Contreras MD, with the diagnosis of CVA for a total of 10 visit(s). Discharge Date: 09/26/22 Please see the following information for a summary of their discharge status. Subjective: Doesnt feel any better. States he id soing some exercises at home but hard forf him to describe to me. none of the ones we do are done at home nor does he think that they can be. Transfers are dependent at home. R LE Pain Intensity (Out of 10): 0 % Improvement: 0 Objective/Function: Oriented to person and place. Pt slouched in WC relying on back of chair to hold him up. Can scoot and sit up when cued. Sits for about 3 minutes today without support before slacking back to supported chair. Unable to move R LE or R UE funcitonally today or WB through that side. L LE and UE are what he uses to move. L LE AROM WFL but weak 4- knees and ankles and 3+ hips. Sit to stand with max Assist and need L UE, assist needed to get weight shifted Fw and L, once up, he can stand at hemiwalker for 60 seconds hunched and even let go of walker but needs Min A to maintain balance. No functional improvement and patient not realistic to ever walk although , with lots of HEP he may be able to help more with trasnfer which is max to dependent right now and stand, he does not believe he has the gumption or ability or help at home to ex daily or stand more often adn does not wisdh to pursue any further PT. Goal 1:: I appropriate seated R LE stretches and L LE strength with help of family at home. Goal Progress: Not Progressing Goal 2:: sit in chair for 30 minutes without using back of chair I without need VC Goal Progress: Not Progressing Goal 3:: sit to stand at hemiwalker without VC and stand mod I 4 minutes Goal Progress: Not Progressing Goal 4:: Plan to start ambulation if tolerated in R LE or consider bracing. Goal Progress: Not Progressing Plan: d/c at patient request. Note sent to [facility] that he might be benefit from more learning disabilities resource teacher in involvement in learning HEP at physical therapy if possible to do daily at home. Pt does not want this right now.Doctor can be notified if he changes his mind. Discharge Comments: See objective above If there are questions or concerns regarding this patient's physical therapy, please feel free to call me at [phone]. Thank you for the referral of this patient. Sincerely, Bryan Bateman, DPT, OCS, CSCS Balance/Gait/Functional tests - Balance/Special Test Scores Lower Extremity Functional Score: 0
--- NOTE | 2022-10-09 11:34 | HP.OTDCSUM ---
It has been my pleasure to treat MIRI REES under orders from Dr. Eligio Contreras MD, for the diagnosis of right side paralyzed, CVA for a total of 9 visit(s). Please see the following information for a summary of their discharge status. Objective/Function: pt continues to struggle with high tone limiting AROM of right UE- pt did not make progress in OT- rec'd PROM daily to prevent contractures- as well as skin checks for right hand. Patient Goals: Regain Mobility, Use Hand/Wrist/Arm Normally Again, Be More Independent in ADLS Goal:: pt will demo increase in right UE ROM to 50% of unaffected UE ROM to increase ease of dressing by d/c. pt will demo the ability to perform PROM of right UE throughout 75% of ROM without difficulty/pain or tone limiting pt by d/c. pt will demo the ability to perform PROM of right elbow/forearm within 75% of ROM without tone limiting pt by d.c Goal:: pt will demo initiation of grasp/release to milk pickup driver med./large object by d/c. pt will demo increase in fluid elbow ROM be able to feed self by d.c Goal:: pt may need night orthosis to prevent digit contractures and skin break down. will speak with [facility] to see what is available. Plan: pt not making progress with out-pt therapy - pt request d/c rec'd staff at [facility] monitor skin for issues or breakdown and PROM to prevent contracture of right UE/ pt communicates understanding. Discharge Comments: pt was seen for OT 2x week for 4 weeks- pt did not make progress toward goals- rec'd d/c pt agrees= therapist did recd staff from [facility] perform PROM to prevent contracture of right UE as well as monitor skin for breakdown- pt sits with hand fisted and may need night brace (resting hand brace if he is receptive) - pt d/c at this time. If there are questions or concerns regarding this patient's occupational therapy, please fell free to call me at [phone]. Thank you for the referral of this patient. Sincerely, Denisha Villavicencio, OTR/L, CHT
--- NOTE | 2022-10-10 09:22 | HP.SPREEV_ITS ---
Visit History - Visit Info Date of Eval: 08/22/22 Visit: 1 Patient's Approved Number of Visits: 10 Insurance Date Limit: 05/11/23 Utility Mechanic Supervisor: BRYN - Andressa Attending Doctor: Referring Doctor: Reason for Referral: CVA . RX HERE Date of Onset of Diagnosis: 02/07/2022 Previous speech therapy: Yes Results: FROM INITIAL EVALUATION: Pt participated in nearly 5 weeks of speech therapy while admitted in the inpatient rehabilitation unit at [facility]. During his admission goals were created to target oropharyngeal dysphagia, confrontation naming, automatic speech, and orientation to self and personal information. During admission, Pt's diet was upgraded from pureed solids and thin liquids to regular solids and thin liquids by the time of discharge - Pt does have a hx of a MBSS on 02/27/23. At 05/02/22 d/c Pt presen estephanie w/ non-fluent aphasia w/ frequent word and sound substitutions. Confrontation naming w/ 70% accuracy. Answering simple yes/no ?s w/ 100% accuracy and complex/comparison ?s w/ 90% accuracy. Diet advanced to regular textures/thin liquids w/ solids cut into bite sized pieces. Other Relevant Medical History/Diagnoses/Surgery: FROM INITIAL EVALUATION: JHONATHAN REES is a 76 year old male who presents to [facility] for evaluation following a CVA per the physician's order. Other speech related dx on the order include aphasia, oropharyngeal dysphagia, and dysarthria. Pt dropped off by [facility] - no one accompanied him. Pt confused as to why he was here upon initial questioning however asked if he had a stroke, Pt reporting yes. Pt presenting with severe expressive aphasia and moderate dysarthria. Pt's paperwork reporting he is eating a regular solid and thin liquid diet at the SNF - unclear if there are any safe swallowing strategies he is adhering to. Pt does present with significant right facial droop. PER HOSPITAL RECORDS: 02/07/2022 JHONATHAN REES, is a 76 Male w/ a PMHx of Afib, Cataract, Diabetes, History of skin cancer, Hyperlipidemia, Hypertension, Stroke, admitted to Neuro ICU at [facility] for left MCA stroke. Transferred from [facility] with findings consistent with left MCA stroke. Patient has history of atrial fibrillation on Eliquis, but Eliquis was held for elective left shoulder replacement surgery. Postoperatively, patient developed right upper ad lower extremity weakness, facial droop, aphasia. CTA showed left cervical ICA occlusion with distal reconstitution, then re-occlusion at M2. Transferred to [facility] to consider mechanical thrombectomy. TNK (thrombolytic) given. Patient diaphoretic with ST elevation inferiorly on EKG. NIHSS 18, atrial flutter, EKG suggestive of late WA. Patient underwent thrombectomy, left ICA stent. Blood pressure controlled, Atorvastatin 80mg started, PT/OT/ST for left MCA stroke. Aspirin held due to TNK administration. 02/19/2022 Admit to [facility] for 3 hours daily PT/OT/ST for left MCA stroke. - Diagnosis Diagnosis: Moderate-Severe Expressive Aphasia, Moderate Dysarthria, Oropharyngeal Dysphagia - Pain Is pain an issue with your current prescribed condition?: No - Personal Preferred language: Finnish History - History Hx Tobacco Use: No - Pain Is pain an issue with your current prescribed condition?: No Patient Allergies - Allergies Allergies No Known Allergies Allergy (Verified 02/19/22 15:43) Previous/Current Goals - Goals 1-5 Previous Goal #1: Jhonathan will demonstrate use of word finding strategies to complete biographical information and complex convergent/divergent naming tasks with 70% acc independently across 3 measured opportunities to improve word retrieval. Goal 1 Status: GOAL PROGRESSING: Jhonathan stating his name, , and retirement name with 100% acc for 3 sessions, progressing from a baseline of having diffi culty with year and name of retirement. Direct education provided re: semantic feature analysis with handout provided re: cheat sheet for description ideas. Example provided and then Jhonathan described a ball independently with 40% acc and benefited from cues on description ideas to improve description acc to 90%. Continue with this education on SFA. Jhonathan completes divergent naming tasks with 20-60% acc independently and benefits from mod-max semantic and phonemic cues to improve to 100%. Jhonathan completed a sentence completion task for HW with 70% acc independently -- Reviewed his responses and he corrected them with mod-max verbal and semantic cues to improve acc to 95%. Pt with unique responses that were more abstract (e.g., Would you like a.....jungle jump?; It takes two hours to...clear the enemy). Pt requiring the whole session length to correct 7 sentences. Previous Goal #2: Jhonathan will generate 3 sentences when given a target verb following WHO+verb+WHAT structure with 70% acc independently across 3 consecutively measured sessions. Goal 2 Status: GOAL PROGRESSING: Jhonathan generated 3 sentences independently with WHO+verb+WHAT with 33% acc following three attempts given mod/max support. Previous Goal #3: Jhonathan will generate 3 additional pieces of information answering WHERE/WHEN/WHY of one self-created WHO+verb+WHAT sentence with 2 of the 3 questions answered independently across 3 consecutively measured sessions. Goal 3 Status: GOAL PROGRESSING: Jhonathan generated 3 additional pieces of information with 2 of the 3 questions answered independently and benefited from mod verbal and semantic cues to improve to 3/3. GOAL TARGETED 1X DURING POC SO 3 SESSION MEASURE WAS NOT MET. Previous Goal #4: Jhonathan will participate in auditory comprehension tasks with 65% acc independently following either oral presentation or encoding a passage across 3 measured opportunities. Goal 4 Status: GOAL MET: Jhonathan participated in sentence completion and auditory comprehension task via completing a phrase, answering comprehension questions from 1 sentence statement, and recalling 2 pieces of information from a 2-part sentence with 100% acc independently. Pt encoding open ended sentences to fill in the blanks with 80% (16/20) acc independently. Pt reading 2 short stories independently and answered comprehension questions with between 80 (4/5)-100 (5/5)% acc. Previous Goal #5: Jhonathan will complete oral motor exercises 10x per exercise 2x/day to aid in bolus manipulation, oral strengthening, ROM, and articulatory strength with no cues. Goal 5 Status: GOAL MET: Direct education provided re: oral motor exercises. Jhonathan completed oral motor exercises including labial retraction for 10 reps with 5 sec hold, labial protrusion for 10 reps with 5 sec hold, labial retrac tion+protrusion with 3 sec hold of each for 20 reps, tongue cheek resistance press for 10 reps on each side with 5 sec hold, lip press for 10 reps with 5 sec hold, alternating labial protrusion for 20 reps, alternating cheek puff for 10x at 3 sets, and tongue gum circular sweep for 10 reps. Pt benefiting from min supervision during 80% of exercises however did require mod verbal cues on 3 of the exercises to assist with completing exercises. Jhonathan reporting doing his exercises 2x/day and is no longer confused on how to complete them. Subjective Dysphagia - Current Diet Solids Current Diet: Regular Other: Per SNF documentation - Current Diet Liquids Current Liquids: Thin Other: Per SNF documentation BDAE-3 - Bourg Diagnostic Aphasia Examination BDAE-3 Administered: Yes BDAE-3: The BDAE-3 assesses communication in the areas of: conversational and expository speech, auditory comprehension, oral expression, reading and writing. Date: FROM INITIAL EVALUATION ON 08/22/22 - Severity Level: 2 Level Detail: Conversation about familiar subjects is possible with help from listener. Frequent failures to convey the idea, but the patient shares the burden of communication. - Rating Scale Profile of speech character Articulation Agility: 4 Detail: Facility at phoneme and syllable level ranges from 1 being unable to form speech sounds to 7 being never impaired Phrase length: 6 Detail: Longest occasional uninterrupted word runs Grammatical form: 6 Detail: Variety of grammatical constructions; use of grammatical mophemes: 1=nosyntactic word groupings ranging to 7 being normal range of syntax; normal facility with grammatical words Melodic Line (Prosody): 4 Detail: 1=word b word or aprosodic speech ranging to 7 being normal speech lee ann Paraphasia in running speech: 4 Detail: 1 present in evrey utterance ranging to 7 s absent Word finding relative to fluency: 2 Detail: 1 is fluent but empty speech ranging to 7 as output primarily content words - Summary Profile Auditory Comprehension Basic word discrimination Percentile: 40 Commands Percentile: 20 Complex Ideational Material Percentile: 20 - Summary Profile Recitation Recitation automatized sequences Percentile: 100 - Summary Profile Repitition Repetition Percentile: 100 Words Percentile: 100 Sentences Percentile: 100 - Summary Profile Naming Responsive Naming Percentile: 60 Bourg Naming Test Percentile: 70 Special Categories Percentile: to be continued - Summary Profile Paraphasia Phonemic example- Marvel for [place]: 20 percentile Verbal examples - for : 20 percentile Neologistic - example planker for comb: 100 percentile Multi-word: 20th percentile - Summary Profile Reading Matching cases and scripts: to be continued Number matching: to be continued Picture - word matching: to be continued Oral word reading: to be continued Oral sentence reading: to be continued Oral sentence comprehension: to be continued Sentences/Paragraph comprehension: to be continued - Summary Profile Writing Form: to be continued Letter choice: to be continued Motor faclility: to be continued Primer words: to be continued Regular phonics: to be continued Common irregular words: to be continued Written picture naming: to be continued Narrative writing: to be continued - BDAE-3 Comments Free Conversation Transcript When asked to tell ST about what he did for work 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 Pt ended response and did not benefit from max verbal and semantic cues or MC options. Cookie Theft Picture Description When asked to describe a picture scene Pt responding verbatim: Well taking co okie war [jar] with handle and he's standing on a stand is tipping over. Sink is spill..po...po...pouring out of the sink. Doesn't look like there's anything else happening. [cue] Little girl, little boy, and the boy's [jargon] [cue of 'she is their..'] mother. [cue] She's probably pretty ordinary. She doesn't look mad, upset, or frustrated. [cue] Waiting for her cookie. [cue] She's standing in the water. Item Analysis Commands: 2 components (2/2 followed); 3 components (2/3 followed); 5 components (1/5 followed). Yes/No: [place] questions following a short story with 50% acc. Auditory Comprehension following a short-story: 50% acc. Automatic Sentences: MARQUISE = 100%; Counting 1-21 = 100%. Repetition: Single Words = 100%; Sentences with 3 words = 100% and Sentence with 9 words = 33%. Naming: Responsive (What do we tell time with?) = 80%; Confrontation = 66% acc (palette = paylette; octopus = oct oct octopus) Plan - Plan Plan: Will recommend Pt for weekly outpatient speech therapy intervention address moderate expressive and receptive aphasia. Pt would benefit from skilled intervention to target fluency of expressive language and comprehension of receptive tasks. He would benefit from circumlocution training and immediate feedback to identify instances of paraphasia. Without skilled intervention Pt is at risk for difficulty returning to work at a level deemed appropriate for answering phone calls or communicating basic, medical, emergent, social wants & needs, and interacting with family/friends at home, during social interactions, and at work. - Recommendations MBS: Yes Treatment Warranted: Yes Treatment Warranted: Receptive/ Expressive Language, Dysphagia, Cognition Comment: Will perform BSE next session and continue education on swallowing exercises. - Progress Prognosis: Good - Frequency Frequency: 1-2x /Week Additional (Frequency): 60 min. sessions. Duration: 10 weeks - Goals that are Established Determination:: Goals will be added/modified as deemed necessary and appropriate. Therapy will be discontinued when results of re-evaluation indicate therapy is no longer needed or lack of progress has been documented. - Goal #1-5 Goal #1: Jhonathan will demonstrate use of word finding strategies to complete complex convergent/divergent naming and picture description tasks with 70% acc independently across 3 measured opportunities to improve word retrieval. Goal #2: Jhonathan will generate 3 sentences when given a target verb following WHO+verb+WHAT structure with 70% acc independently across 3 consecutively measured sessions. Goal #3: Jhonathan will generate 3 additional pieces of information answering WHERE/WHEN/WHY of one self-created WHO+verb+WHAT sentence with 2 of the 3 questions answered independently across 3 consecutively measured sessions. Goal #4: Jhonathan will generate a monologue from a prompt (e.g., ?tell me about the pros and cons of living in [place]?) with 4 or more sentences at 75% accuracy given frequent maximum verbal and frequent maximum phonemic cues. Goal #5: . Education - Patient has Indicated that the Following Identified Educational Needs: None The Patient has indicated that they have no educational or learning abilities that may effect their care.: Yes - Patient Instruction Patient Education: Diagnosis Person Taught: Patient Teaching Method: Discussion Response to teaching: Reinforcement needed, Unable to return demo
--- NOTE | 2022-11-18 15:26 | HP.SP.REEV ---
History History Date of Eval: 08/22/22 Attending Doctor: Referring Doctor: Reason for Referral: CVA . RX HERE Date of Onset of Diagnosis: 02/07/2022 Previous speech therapy: Yes Results: FROM INITIAL EVALUATION: Pt participated in nearly 5 weeks of speech therapy while admitted in the inpatient rehabilitation unit at [facility]. During his admission goals were created to target oropharyngeal dysphagia, confrontation naming, automatic speech, and orientation to self and personal information. During admission, Pt's diet was upgraded from pureed solids and thin liquids to regular solids and thin liquids by the time of discharge - Pt does have a hx of a MBSS on 02/27/23. At 05/02/22 d/c Pt presented w/ non-fluent aphasia w/ frequent word and sound substitutions. Confrontation naming w/ 70% accuracy. Answering simple yes/no ?s w/ 100% accuracy and complex/comparison ?s w/ 90% accuracy. Diet advanced to regular textures/thin liquids w/ solids cut into bite sized pieces. Other Relevant Medical History/Diagnoses/Surgery: JHONATHAN REES is a 76 year old male who has participated in 19 visits of speech therapy a/o 11/18/22 including his initial evaluation. Jhonathan has progressed in reporting his biographical information with 100% acc. He continues to have difficulty with word finding during prompts such as tell me about a time... however performs with higher accuracy in sentence completion tasks such as open the...' or providing synonyms/antonyms of a target word such as hot and... or tell me a word that means the same as job. He has difficulty with more convergent naming related tasks such as when being given three description words (piolet, airport, fly) and identifying the target word is plane. He typically scores 60-65% acc on those tasks. He would continue to benefit from therapy to improve use of his word finding strategies to make functional choices, like what he wants to eat, to describe his pain, or to describe what has happened to him. FROM INITIAL EVALUATION: Pt is a 76 year old male who presents to [facility] speech therapy for evaluation following a CVA per the physician's order. Other speech related dx on the order include aphasia, oropharyngeal dysphagia, and dysarthria. Pt dropped off by [facility] - no one accompanied him. Pt confused as to why he was here upon initial questioning however asked if he had a stroke, Pt reporting yes. Pt presenting with severe expressive aphasia and moderate dysarthria. Pt's paperwork reporting he is eating a regular solid and thin liquid diet at the SNF - unclear if there are any safe swallowing strategies he is adhering to. Pt does present with significant right facial droop. PER HOSPITAL RECORDS: 02/07/2022 JHONATHAN REES, is a 76 Male w/ a PMHx of Afib, Cataract, Diabetes, History of skin cancer, Hyperlipidemia, Hypertension, Stroke, admitted to Neuro ICU at [facility] for left MCA stroke. Transferred from [facility] with findings consistent with left MCA stroke. Patient has history of atrial fibrillation on Eliquis, but Eliquis was held for elective left shoulder replacement surgery. Postoperatively, patient developed right upper ad lower extremity weakness, facial droop, aphasia. CTA showed left cervical ICA occlusion with distal reconstitution, then re-occlusion at M2. Transferred to [facility] to consider mechanical thrombectomy. TNK (thrombolytic) given. Patient diaphoretic with ST elevation inferiorly on EKG. NIHSS 18, atrial flutter, EKG suggestive of late [place]. Patient underwent thrombectomy, left ICA stent. Blood pressure controlled, Atorvastatin 80mg started, PT/OT/ST for left MCA stroke. Aspirin held due to TNK administration. 02/19/2022 Admit to [facility] for 3 hours daily PT/OT/ST for left MCA stroke. Hx Tobacco Use: No Pain Is pain an issue with your current prescribed condition?: No Personal Preferred language: Amharic Patient Allergies Allergies Allergies: Allergies No Known Allergies Allergy (Verified 02/19/22 15:43) Previous/Current Goals Goals 1-5 Previous Goal #1: Jhonathan will demonstrate use of word finding strategies to complete complex convergent/divergent naming and picture description tasks with 70% acc independently across 3 measured opportunities to improve word retrieval. Goal 1 Status: PROGRESSING: Pt completed divergent naming task via naming 10 colors with 70% acc independently. Pt completing tasks for word finding with sentence completion with 90% accuracy. Pt naming a word that follows three clues (e.g., fly, airport, commuter pilot = plane) with 60% acc (3/5) on 10/18/22 and with 65% acc (10/15) on 11/15/22. Pt naming a synonym based off of a written target word with 83% acc independently. Generally, Pt benefiting from extended processing time and the first letter or two of target word to improve accuracy. Previous Goal #2: Jhonathan will generate 3 sentences when given a target verb following WHO+verb+WHAT structure with 70% acc independently across 3 consecutively measured sessions. Goal 2 Status: PROGRESSING: Jhonathan generating 3 sentences independently with WHO+verb+WHAT with 66% acc (4/6 targets) independently and benefited from min support to improve to 100%. Previous Goal #3: Jhonathan will generate 3 additional pieces of information answering WHERE/WHEN/WHY of one self-created WHO+verb+WHAT sentence with 2 of the 3 questions answered independently across 3 consecutively measured sessions. Goal 3 Status: PROGRESSING: Jhonathan generating 3 additional pieces of information with 1 of the 3 questions answered independently and benefited from min-mod verbal and semantic cues to improve to 3/3. Previous Goal #4: Jhonathan will generate a monologue from a prompt (e.g., ?tell me about the pros and cons of living in [place]?) with 4 or more sentences at 75% accuracy given frequent maximum verbal and frequent maximum phonemic cues. Goal 4 Status: PROGRESSING: Jhonathan completed planning the perfect day with vague responses for 6/10 questions. Pt benefiting from mod verbal and semantic cues to improve specificity of responses in 4/6 questions. Jhonathan completing pro/con list of exercising with listing 4 total reasons (2 for each) with 25% acc independently. Pt benefited from mod verbal and logical cues to improve responses to 100%. Jhonathan responding to tell me the good/bad about leasing a car vs. buying with 50% acc independently and benefited from mod semantic cues to improve to 75% (His good reasons were: 1. you can get a good thing any time, and 2. you never have to buy. His bad reasons were: 1. you get stuck with something you don't want, 2. you don't want too much living [interest] rate. He benefited from mod semantic cue to also state you're only allowed so many miles and the seats have to be clean when you return.) Previous Goal #5: . * Pediatric & Adult patients Subjective Dysphagia Current Diet Solids Current Diet: Regular Other: Per SNF documentation Current Diet Liquids Current Liquids: Thin Other: Per SNF documentation Adult BDAE-3 [place] Diagnostic Aphasia Examination BDAE-3 Administered: Yes BDAE-3: The BDAE-3 assesses communication in the areas of: conversational and expository speech, auditory comprehension, oral expression, reading and writing. Date: FROM INITIAL EVALUATION ON 08/22/22 Severity Level: 2 Level Detail: Conversation about familiar subjects is possible with help from listener. Frequent failures to convey the idea, but the patient shares the burden of communication. Rating Scale Profile of speech character Articulation Agility: 4 Detail: Facility at phoneme and syllable level ranges from 1 being unable to form speech sounds to 7 being never impaired Phrase length: 6 Detail: Longest occasional uninterrupted word runs Grammatical form: 6 Detail: Variety of grammatical constructions; use of grammatical mophemes: 1=nosyntactic word groupings ranging to 7 being normal range of syntax; normal facility with grammatical words Melodic Line (Prosody): 4 Detail: 1=word b word or aprosodic speech ranging to 7 being normal speech lee ann Paraphasia in running speech: 4 Detail: 1 present in evrey utterance ranging to 7 s absent Word finding relative to fluency: 2 Detail: 1 is fluent but empty speech ranging to 7 as output primarily content words Summary Profile Auditory Comprehension Basic word discrimination Percentile: 40 Commands Percentile: 20 Complex Ideational Material Percentile: 20 Summary Profile Recitation Recitation automatized sequences Percentile: 100 Summary Profile Repitition Repetition Percentile: 100 Words Percentile: 100 Sentences Percentile: 100 Summary Profile Naming Responsive Naming Percentile: 60 [place] Naming Test Percentile: 70 Special Categories Percentile: to be continued Summary Profile Paraphasia Phonemic example- Marvel for [place]: 20 percentile Verbal examples - for : 20 percentile Neologistic - example planker for comb: 100 percentile Multi-word: 20th percentile Summary Profile Reading Matching cases and scripts: to be continued Number matching: to be continued Picture - word matching: to be continued Oral word reading: to be continued Oral sentence reading: to be continued Oral sentence comprehension: to be continued Sentences/Paragraph comprehension: to be continued Summary Profile Writing Form: to be continued Letter choice: to be continued Motor faclility: to be continued Primer words: to be continued Regular phonics: to be continued Common irregular words: to be continued Written picture naming: to be continued Narrative writing: to be continued BDAE-3 Comments Free Conversation Transcript: -: When asked to tell ST about what he did for work 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 Pt ended response and did not benefit from max verbal and semantic cues or MC options. Alia Theft Picture Description: -: When asked to describe a picture scene Pt responding verbatim: Well taking cookie war [jar] with handle and he's standing on a stand is tipping over. Sink is spill..po...po...pouring out of the sink. Doesn't look like there's anything else happening. [cue] Little girl, little boy, and the boy's [jargon] [cue of 'she is their..'] mother. [cue] She's probably pretty ordinary. She doesn't look mad, upset, or frustrated. [cue] Waiting for her cookie. [cue] She's standing in the water. Item Analysis: -: Commands: 2 components (2/2 followed); 3 components (2/3 followed); 5 components (1/5 followed) Yes/No: [place] questions following a short story with 50% acc Auditory Comprehension following a short-story: 50% acc Automatic Sentences: MARQUISE = 100%; Counting 1-21 = 100% Repetition: Single Words = 100%; Sentences with 3 words = 100% and Sentence with 9 words = 33% Naming: Responsive (What do we tell time with?) = 80%; Confrontation = 66% acc (palette = paylette; octopus = oct oct octopus) Reference: Neuro-QoL instrument Radiation Oncology Patient Plan Plan Plan: Will recommend Pt for weekly outpatient speech therapy intervention address moderate expressive and receptive aphasia. Pt would benefit from skilled intervention to target fluency of expressive language and comprehension of receptive tasks. He would benefit from circumlocution training and immediate feedback to identify instances of paraphasia. Without skilled intervention Pt is at risk for difficulty returning to work at a level deemed appropriate for answering phone calls or communicating basic, medical, emergent, social wants & needs, and interacting with family/friends at home, during social interactions, and at work. Recommendations MBS: Yes Treatment Warranted: Yes Treatment Warranted: Receptive/ Expressive Language, Dysphagia and Cognition Comment: Will perform BSE next session and continue education on swallowing exercises. Progress Prognosis: Good Frequency Frequency: 1-2x /Week Additional (Frequency): 30 min. sessions. Duration: 5 weeks Goals that are Established Determination:: Goals will be added/modified as deemed necessary and appropriate. Therapy will be discontinued when results of re-evaluation indicate therapy is no longer needed or lack of progress has been documented. Goal #1-5 Goal #1: Jhonathan will demonstrate use of word finding strategies to complete complex convergent/divergent naming and picture description tasks with 70% acc given min cues across 3 measured opportunities to improve word retrieval. Goal #2: Jhonathan will generate 3 sentences when given a target verb following WHO+verb+WHAT structure with 70% acc independently across 3 consecutively measured sessions. Goal #3: Jhonathan will generate 3 additional pieces of information answering WHERE/WHEN/WHY of one self-created WHO+verb+WHAT sentence with 2 of the 3 questions answered independently across 3 consecutively measured sessions. Goal #4: Jhonathan will generate a monologue from a prompt (e.g., ?tell me about the pros and cons of living in [place]?) with 4 or more sentences at 75% accuracy given frequent moderate verbal and phonemic cues. Goal #5: . Education Patient has Indicated that the Following Identified Educational Needs: None The Patient has indicated that they have no educational or learning abilities that may effect their care.: Yes Patient Instruction Patient Education: Diagnosis Person Taught: Patient Teaching Method: Discussion Response to teaching: Reinforcement needed and Unable to return demo
--- NOTE | 2022-12-25 11:57 | HP.SPREEV_ITS ---
History History Date of Eval: 08/22/22 Attending Doctor: Referring Doctor: Reason for Referral: CVA . RX HERE Date of Onset of Diagnosis: 02/07/2022 Previous speech therapy: Yes Results: FROM INITIAL EVALUATION: Pt participated in nearly 5 weeks of speech therapy while admitted in the inpatient rehabilitation unit at [facility]. During his admission goals were created to target oropharyngeal dysphagia, confrontation naming, automatic speech, and orientation to self and personal information. During admission, Pt's diet was upgraded from pureed solids and thin liquids to regular solids and thin liquids by the time of discharge - Pt does have a hx of a MBSS on 02/27/23. At 05/02/22 d/c Pt presented w/ non-fluent aphasia w/ frequent word and sound substitutions. Confrontation naming w/ 70% accuracy. Answering simple yes/no ?s w/ 100% accuracy and complex/comparison ?s w/ 90% accuracy. Diet advanced to regular textures/thin liquids w/ solids cut into bite sized pieces. Other Relevant Medical History/Diagnoses/Surgery: JHONATHAN REES is a 76 year old male who has participated in 30 visits of speech therapy a/o 12/25/22 including his initial evaluation. Jhonathan has progressed in reporting his biographical information with 100% acc. He continues to have difficulty with word finding during prompts such as tell me about a time... however performs with higher accuracy in sentence completion tasks such as open the...' or providing synonyms/antonyms of a target word such as hot and... or tell me a word that means the same as job. He has difficulty with divergent and convergent naming related tasks such as identifying items in a category or when being given three description words (pest control pilot, airport, fly) and identifying the target word is plane. He typically scores 40-60% acc on those tasks. He continues with varying accuracy on VNeST structure of therapy via creating words around a target verbs. He scores between 33-66% independently with creating sentences for WHO and WHAT. He scores between 66-100% for creating 3 additional sentences targeting WHERE, WHEN, WHY. He would continue to benefit from therapy to improve use of his word finding strategies to make functional choices, like what he wants to eat, to describe his pain, or to describe what has happened to him. FROM INITIAL EVALUATION: Pt is a 76 year old male who presents to [facility] speech therapy for evaluation following a CVA per the physician's order. Other speech related dx on the order include aphasia, oropharyngeal dysphagia, and dysarthria. Pt dropped off by [facility] - no one accompanied him. Pt confused as to why he was here upon initial questioning however asked if he had a stroke, Pt reporting yes. Pt presenting with severe expressive aphasia and moderate dysarthria. Pt's paperwork reporting he is eating a regular solid and thin liquid diet at the SNF - unclear if there are any safe swallowing strategies he is adhering to. Pt does present with significant right facial droop. PER HOSPITAL RECORDS: 02/07/2022 JHONATHAN REES, is a 76 Male w/ a PMHx of Afib, Cataract, Diabetes, History of skin cancer, Hyperlipidemia, Hypertension, Stroke, admitted to Neuro ICU at [facility] for left MCA stroke. Transferred from [facility] with findings consistent with left MCA stroke. Patient has history of atrial fibrillation on Eliquis, but Eliquis was held for elective left shoulder replacement surgery. Postoperatively, patient developed right upper ad lower extremity weakness, facial droop, aphasia. CTA showed left cervical ICA occlusion with distal reconstitution, then re-occlusion at M2. Transferred to [facility] to consider mechanical thrombectomy. TNK (thrombolytic) given. Patient diaphoretic with ST elevation inferiorly on EKG. NIHSS 18, atrial flutter, EKG suggestive of late MD. Patient underwent thrombectomy, left ICA stent. Blood pressure controlled, Atorvastatin 80mg started, PT/OT/ST for left MCA stroke. Aspirin held due to TNK administration. 02/19/2022 Admit to RU for 3 hours daily PT/OT/ST for left MCA stroke. Hx Tobacco Use: No Pain Is pain an issue with your current prescribed condition?: No Personal Preferred language: Malian Patient Allergies Allergies Allergies: Allergies No Known Allergies Allergy (Verified 02/19/22 15:43) Previous/Current Goals Goals 1-5 Previous Goal #1: Jhonathan will demonstrate use of word finding strategies to complete complex convergent/divergent naming and picture description tasks with 70% acc given min cues across 3 measured opportunities to improve word retrieval. Goal 1 Status: PROGRESSING: Jhonathan participating in divergent naming task via naming 10 things to consider when planning a wedding after expressing interest in ST's wedding planning with 40% acc independently and benefited from min-mod semantic cues to improve to 80% acc. Generally, Pt benefiting from extended processing time and the first letter or two of target word to improve accuracy. CONTINUE WITH GOAL. Previous Goal #2: Jhonathan will generate 3 sentences when given a target verb following WHO+verb+WHAT structure with 70% acc independently across 3 consecutively measured sessions. Goal 2 Status: PROGRESSING: Jhonathan generated 3 sentences after being given a target verb with between 50-66% acc (3-4/6 targets) independently on first three sentences. Jhonathan generated 3 additional sentences with 33-83% acc (1-5/6) independently. CONTINUE WITH GOAL. Previous Goal #3: Jhonathan will generate 3 additional pieces of information answering WHERE/WHEN/WHY of one self-created WHO+verb+WHAT sentence with 2 of the 3 questions answered independently across 3 consecutively measured sessions. Goal 3 Status: PROGRESSING: Jhonathan generating 3 additional pieces of information with between 2 or 3 of the 3 questions answered independently and benefited from min verbal and semantic cues to improve to 3/3 across 2 measured sessions. CONTINUE WITH GOAL. Previous Goal #4: Jhonathan will generate a monologue from a prompt (e.g., ?tell me about the pros and cons of living in [place]?) with 4 or more sentences at 75% accuracy given frequent moderate verbal and phonemic cues. Goal 4 Status: PROGRESSING: Jhonathan participated in conversation with re: her engagement over the weekend. Pt asking questions with 75% acc with 3 paraphasia instances present. Did not appear to impact conversation with this known conversation partner. Pt completing Venn Diagram comparing and contrasting apple vs. 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 cake with between 15-80% acc independently and benefited from max verbal and semantic cues to improve to 80- 100%. Jhonathan completed a [id number]-[id number]-blank paragraph for HW with 72% acc (8/11 blanks) independently and benefited from min verbal cues to improve acc to 100%. CONTINUE WITH GOAL. Previous Goal #5: . * Pediatric & Adult patients Subjective Dysphagia Current Diet Solids Current Diet: Regular Other: Per SNF documentation Current Diet Liquids Current Liquids: Thin Other: Per SNF documentation Adult BDAE-3 [place] Diagnostic Aphasia Examination BDAE-3 Administered: Yes BDAE-3: The BDAE-3 assesses communication in the areas of: conversational and expository speech, auditory comprehension, oral expression, reading and writing. Date: FROM INITIAL EVALUATION ON 08/22/22 Severity Level: 2 Level Detail: Conversation about familiar subjects is possible with help from listener. Frequent failures to convey the idea, but the patient shares the burden of communication. Rating Scale Profile of speech character Articulation Agility: 4 Detail: Facility at phoneme and syllable level ranges from 1 being unable to form speech sounds to 7 being never impaired Phrase length: 6 Detail: Longest occasional uninterrupted word runs Grammatical form: 6 Detail: Variety of grammatical constructions; use of grammatical mophemes: 1=nosyntactic word groupings ranging to 7 being normal range of syntax; normal facility with grammatical words Melodic Line (Prosody): 4 Detail: 1=word b word or aprosodic speech ranging to 7 being normal speech lee ann Paraphasia in running speech: 4 Detail: 1 present in evrey utterance ranging to 7 s absent Word finding relative to fluency: 2 Detail: 1 is fluent but empty speech ranging to 7 as output primarily content words Summary Profile Auditory Comprehension Basic word discrimination Percentile: 40 Commands Percentile: 20 Complex Ideational Material Percentile: 20 Summary Profile Recitation Recitation automatized sequences Percentile: 100 Summary Profile Repitition Repetition Percentile: 100 Words Percentile: 100 Sentences Percentile: 100 Summary Profile Naming Responsive Naming Percentile: 60 [place] Naming Test Percentile: 70 Special Categories Percentile: to be continued Summary Profile Paraphasia Phonemic example- Marvel for Pecan Gap: 20 percentile Verbal examples - for : 20 percentile Neologistic - example planker for comb: 100 percentile Multi-word: 20th percentile Summary Profile Reading Matching cases and scripts: to be continued Number matching: to be continued Picture - word matching: to be continued Oral word reading: to be continued Oral sentence reading: to be continued Oral sentence comprehension: to be continued Sentences/Paragraph comprehension: to be continued Summary Profile Writing Form: to be continued Letter choice: to be continued Motor faclility: to be continued Primer words: to be continued Regular phonics: to be continued Common irregular words: to be continued Written picture naming: to be continued Narrative writing: to be continued BDAE-3 Comments Free Conversation Transcript: -: When asked to tell ST about what he did for work 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 Pt ended response and did not benefit from max verbal and semantic cues or MC options. Cookie Theft Picture Description: -: When asked to describe a picture scene Pt responding verbatim: Well taking cookie war [jar] with handle and he's standing on a stand is tipping over. Sink is spill..po...po...pouring out of the sink. Doesn't look like there's anything else happening. [cue] Little girl, little boy, and the boy's [jargon] [cue of 'she is their..'] mother. [cue] She's probably pretty ordinary. She doesn't look mad, upset, or frustrated. [cue] Waiting for her cookie. [cue] She's standing in the water. Item Analysis: -: Commands: 2 components (2/2 followed); 3 components (2/3 followed); 5 components (1/5 followed) Yes/No: [place] questions following a short story with 50% acc Auditory Comprehension following a short-story: 50% acc Automatic Sentences: MARQUISE = 100%; Counting 1-21 = 100% Repetition: Single Words = 100%; Sentences with 3 words = 100% and Sentence with 9 words = 33% Naming: Responsive (What do we tell time with?) = 80%; Confrontation = 66% acc (palette = paylette; octopus = oct oct octopus) Reference: Neuro-QoL instrument Radiation Oncology Patient Plan Plan Plan: Will recommend Pt for weekly outpatient speech therapy intervention address moderate expressive and receptive aphasia. Pt would benefit from skilled intervention to target fluency of expressive language and comprehension of receptive tasks. He would benefit from circumlocution training and immediate feedback to identify instances of paraphasia. Without skilled intervention Pt is at risk for difficulty returning to work at a level deemed appropriate for a nswering phone calls or communicating basic, medical, emergent, social wants & needs, and interacting with family/friends at home, during social interactions, and at work. Recommendations MBS: Yes Treatment Warranted: Yes Treatment Warranted: Receptive/ Expressive Language Comment: . Progress Prognosis: Good Frequency Frequency: 1-2x /Week Additional (Frequency): 30 min. sessions. Duration: 5 weeks Goals that are Established Determination:: Goals will be added/modified as deemed necessary and appropriate. Therapy will be discontinued when results of re-evaluation indicate therapy is no longer needed or lack of progress has been documented. Goal #1-5 Goal #1: Jhonathan will demonstrate use of word finding strategies to complete complex convergent/divergent naming and picture description tasks with 70% acc given min cues across 3 measured opportunities to improve word retrieval. Goal #2: Jhonathan will generate 3 sentences when given a target verb following WHO+verb+WHAT structure with 70% acc independently across 3 consecutively measured sessions. Goal #3: Jhonathan will generate 3 additional pieces of information answering WHERE/WHEN/WHY of one self-created WHO+verb+WHAT sentence with 2 of the 3 questions answered independently across 3 consecutively measured sessions. Goal #4: Jhonathan will generate a monologue from a prompt (e.g., ?tell me about the pros and cons of living in [place]?) with 4 or more sentences at 75% accuracy given frequent moderate verbal and phonemic cues. Goal #5: . Education Patient has Indicated that the Following Identified Educational Needs: None The Patient has indicated that they have no educational or learning abilities that may effect their care.: Yes Patient Instruction Patient Education: Diagnosis Person Taught: Patient Teaching Method: Discussion Response to teaching: Reinforcement needed and Unable to return demo
== END 2023-01-06 19:00 | disposition home or self-care (01) ==
LOC: SP 11:00
PROVIDERS: PCP Family Medicine; Referring Provider Family Medicine; Visit Provider Family Medicine
DX: I69.391 Dysphagia following cerebral infarction (principal); R13.12 Dysphagia, oropharyngeal phase; I69.328 Other speech and language deficits following cerebral infarction
CPT/HCPCS: 92507; 96105; 97110; 97112; 97163; 97164; 97165; 97166; 97530

== ENCOUNTER 2024-08-31 20:12 | Inpatient (IN) | payer MEDICARE, OTHER, SELFPAY ==
[2024-08-31] VITALS (9 sets, daily range): BP systolic 110–146; BP diastolic 60–94; PULSE 63–84; RESP 18–26; TEMP 36.6–37.7; O2SAT 93–97; BMI 30.2; BMI 29.2
--- NOTE | 2024-08-31 20:50 | RAD_ITS ---
PROCEDURE: CHEST PA AND LATERAL 08/31/2024 REASON FOR EXAM: COUGH TECHNIQUE: Frontal and lateral views of the chest. FINDINGS: Hardware: None Heart: Heart size is moderately enlarged. Mediastinum: The mediastinal contour is unremarkable. Lungs: Poor inspiration with some bibasilar atelectasis. Bones: The bones are unremarkable. RAD/Chest PA and Lateral IMPRESSION: Poor inspiration with some bibasilar atelectasis. Reading Location: [id number]
[2024-08-31] MEDS: 0.9% Normal Saline (1000mL) 1,000 ML 999 ML IV (20:51)
[2024-08-31] MEDS: Ipratropium/Albuterol Sulfate 3 ML AMPUL.NEB INHALATION (20:51)
--- NOTE | 2024-08-31 20:52 | ED.VIS.DYS ---
HPI History of Present Illness Chief Complaint: Shortness of Breath Informant: patient, family, EMS and SNF Narrative Narrative: 78-year-old male from [facility] presenting to the emergency room with cough shortness of breath. Patient reportedly had a chest x-ray that was negative that he was started on Zithromax today. No reported fever. Patient was reportedly 88% on room air there. He has not been hypoxic per nursing here. Oral temperature here is 99.8. Patient has had prior stroke and has expressive aphasia and chronic right-sided deficits. He is on Eliquis due to chronic A-fib. At baseline patient is wheelchair-bound. [facility] Medical History Esophageal stenosis History of left common carotid artery stent placement Hyperlipidemia Hypertension Atrial fibrillation History of skin cancer Stenosis of left internal carotid artery Stroke Cataract Afib Diabetes Home Medications ?Medication ?Instructions ?Recorded ?Last Taken ?Type apixaban 5 mg tablet (Eliquis) 5 mg PO BID Check with primary 02/19/22 Unknown History doctor atorvastatin 80 mg tablet 80 mg PO QHS cholesterol 02/19/22 Unknown History clopidogrel 75 mg tablet (Plavix) 75 mg PO DAILY Check with primary 02/19/22 Unknown History doctor metoprolol tartrate 50 mg tablet 50 mg PO BID BP 02/19/22 Unknown History tamsulosin 0.4 mg capsule (Flomax) 0.4 mg PO DAILY retention 02/19/22 02/19/22 08:30 History vit A 7,160 unit-vit C 113 mg-vit 1 tab PO DAILY Check with primary 02/19/22 Unknown History E 100 [id number] tablet doctor doxazosin 1 mg tablet 1 mg PO QHS urine 04/12/22 Unknown History menthol 0.44 %-zinc oxide 20.6 % 1 applic topical BID@0600,2200 04/12/22 Unknown History topical ointment (Calmoseptine) cream pantoprazole 40 mg tablet,delayed 40 mg PO BID heartburn 04/12/22 Unknown History release sennosides 8.6 mg-docusate sodium 1 tab PO QHS constipation 04/12/22 Unknown History 50 mg tablet (Stool Softener-Stimulant Laxative) Arthritis Pain Compound 0 click topical BID ##0 05/02/22 Unknown Rx acetaminophen 500 mg tablet 1,000 mg (2 x 500 mg) PO Q8 #0 tabs 05/02/22 Unknown Rx bisacodyl 10 mg rectal suppository 10 mg HI .PRN X 1 PRN Constipation 05/02/22 Unknown Rx #0 ea food supplemt, lactose-reduced 120 ml PO 4X/DAY #0 mL 05/02/22 Unknown Rx 0.08 gram-1.5 kcal/mL oral liquid (Ensure Plus High Protein) magnesium hydroxide 400 mg/5 mL 30 ml PO .PRN X 1 PRN Constipation 05/02/22 Unknown Rx oral suspension #0 mL oxymetazoline 0.05 % nasal spray 2 spray intranasal Q12H PRN 05/02/22 Unknown Rx (Afrin (oxymetazoline)) epistaxis 3 days #15 mL sodium chloride 0.65 % nasal spray 1 spray NASAL ACHS #0 mL 05/02/22 Unknown Rx aerosol (Deep Sea Nasal) azithromycin 250 mg tablet 250 mg PO DAILY 08/31/24 Unknown History (Zithromax) loperamide 2 mg capsule 2 mg PO Q6H PRN loose stool 08/31/24 Unknown History (Anti-Diarrheal (loperamide)) nystatin 100,000 unit/gram topical topical 08/31/24 Unknown History powder sertraline 25 mg tablet 25 mg PO DAILY 08/31/24 Unknown History tizanidine 4 mg tablet 4 mg PO QHS 08/31/24 Unknown History Allergy/AdvReac Type Severity Reaction Status Date / Time No Known Allergies Allergy Verified 08/31/24 20:13 Family History no significant family his Surgical History Status post dilation of esophageal narrowing History of left shoulder replacement History of cataract surgery History of left shoulder replacement Social History household members: none Smoking Status: Current some day smoker tobacco type: pipe and cigars alcohol intake: current alcohol intake frequency: holidays/special occasions only substance use type: does not use ROS ROS ED Review of Systems ROS Unobtainable: other Details: Expressive aphasia Constitutional Constitutional ED: Denies fever(s) Respiratory/Chest Respiratory/Chest: Reports cough and dyspnea Gastrointestinal Gastrointestinal: Denies abdominal pain, diarrhea, nausea or vomiting EXAM Physical Exam Const Vital Signs: 08/31/24 20:14 08/31/24 20:20 08/31/24 20:22 Temperature 99.8 F H 99.8 F H Temperature Source Oral Oral Pulse Rate 78 82 Respiratory Rate 26 H 24 H Respiratory Effort Short of Breath Respiratory Pattern Tachypnea Blood Pressure 146/92 H 146/92 H Blood Pressure Mean 110 110 Pulse Ox 94 94 Oxygen Delivery Method Room Air Room Air Room Air 08/31/24 21:07 08/31/24 21:20 08/31/24 22:00 Temperature 98.2 F 98 F Temperature Source Oral Oral Pulse Rate 71 80 84 Respiratory Rate 18 24 H 24 H Respiratory Effort Respiratory Pattern Blood Pressure 126/94 H 117/65 Blood Pressure Mean 104 82 Pulse Ox 93 94 Oxygen Delivery Method Room Air Room Air 08/31/24 22:16 Temperature 98 F Temperature Source Pulse Rate 77 Respiratory Rate 22 H Respiratory Effort Respiratory Pattern Blood Pressure 110/64 Blood Pressure Mean 79 Pulse Ox 94 Oxygen Delivery Method Positive well nourished and well developed General Appearance ED: well developed HEENT Reports normocephalic, head/scalp atraumatic and moist mucous membranes Eyes PERRL and EOMs intact bilaterally Neck no lymphadenopathy, supple and no JVD Resp normal respiratory effort Resp Narrative: Moist cough Auscultation: rhonchi and wheezes expiratory wheezes Cardio regular rate, regular rhythm and no murmurs GI normal to inspection, nondistended, normoactive bowel sounds and non-tender Palpation: soft Back/Spine no CVA tenderness and normal ROM Extremity normal to inspection General Extremety ED: Negative for edema General Extremity: Negative for edema Neuro Neuro Narrative: Patient has a moderate expressive aphasia. Chronic right-sided weakness Banner Coma Scale: document GCS findings Spontaneous Obeys Commands Oriented 15 Sensorium / Orientation: alert Psych mental status grossly normal Mood & Affect: Negative for depressed or tearful Skin no rashes or lesions noted and no wounds MDM MDM MDM Narrative Medical decision making narrative: Differential diagnosis includes but not limited to viral syndrome pneumonia pleural effusion bronchitis bronchospasm dehydration Patient is RSV positive. My independent interpretation of the chest x-ray is no acute process. White count 6.3 hemoglobin 13.1 glucose 124 normal electrolytes. BUN 14 creatinine 0.95 Patient received a DuoNeb as well as IV fluids. Patient is not currently tachycardic or hypoxic. He continues to have a moist rhonchorous cough. Family is concerned with his breathing and his coughing and would be more comfortable with an observational stay. They understand that there is no specific treatment for RSV and that treatment is supportive. History & Record Review Discussion w/independent historian: Patient and Family Additional record(s) reviewed:: Prior inpatient record, Prior ED visit and Prior labs Lab Data Attestation: I reviewed the patient's lab results. Labs: Laboratory Results - last 24 hr 08/31/24 20:27 WBC 6.3 RBC 4.34 L Hgb 13.1 Hct 38.6 L MCV 88.9 MCH 30.2 MCHC 33.9 RDW Std Deviation 47.5 H RDW Coeff of Juan 14.6 Plt Count 210 MPV 10.3 Immature Gran % (Auto) 0.200 Neut % (Auto) 69.2 Lymph % (Auto) 15.7 L [place] % (Auto) 11.1 H Eos % (Auto) 3.3 Baso % (Auto) 0.5 Absolute Neuts (auto) 4.4 Absolute Lymphs (auto) 0.99 Nucleated RBC % 0 Sodium 135 Potassium 4.1 Chloride 101 Carbon Dioxide 23.3 Anion Gap 10 BUN 14 Creatinine 0.95 Estim Creat Clear Calc 71.96 Est GFR (MDRD) Non-Af 81 BUN/Creatinine Ratio 14.9 Glucose 124 H Calcium 9.3 Radiography Diagnostic Testing: Clinical Impression(s) from Imaging Studies Chest X-Ray 08/31/24 20:50 IMPRESSION: Poor inspiration with some bibasilar atelectasis. Reading Location: [id number] Management Discussion w/another healthcare provider: Hospitalist (Dr Cassidy) Discharge Plan Dx/Rx/DC Orders Clinical Impression: Acute bronchitis due to respiratory syncytial virus, Acute bronchospasm, Anticoagulated Disposition Disposition: Acute Care Hospital [facility]
[2024-08-31 21:07] LABS: Absolute Lymphocyte Count 0.99 X10^3/uL (0.83-4.51); Absolute Neutrophil Count 4.4 X10^3/uL (2.0-7.7); Basophil# 0.03 X10^3/uL; Basophil% 0.5 % (0-1); Eosinophil# 0.21 X10^3/uL; Eosinophils% 3.3 % (0-5); Hematocrit 38.6 % (40-54); Hemoglobin 13.1 g/dL (13.0-16.5); Lymphocyte # 0.99 X10^3/ul (0.83-4.51); Lymphocyte % 15.7 % (19-41); Mean Corp Hgb Conc 33.9 g/dL (32-36); Mean Corpuscular Hgb 30.2 pg (27.0-32.0); Mean Corpuscular Volume 88.9 fL (80-94); Mean Platelet Vol. 10.3 fl (6.2-12.0); Monocyte% 11.1 % (0-10); NRBC Flagged by Analyzer 0 % (0-5); Neutrophil # 4.37 X10^3/uL (2.7-7.7); Neutrophil % 69.2 % (47-70); Platelet Count 210 K/mm3 (150-450); RBC Distribution Width CV 14.6 % (11.6-14.6); RBC Distribution Width SD 47.5 fl (35.1-43.9); Red Blood Count 4.34 M/mm3 (4.6-6.2); White Blood Count 6.3 K/mm3 (4.4-11.0)
[2024-08-31 21:36] LABS: Anion Gap 10 (5-15); BUN 14 mg/dL (4-19); BUN/Creat Ratio 14.9 RATIO (10-20); Calcium,Total 9.3 mg/dL (7.6-11.0); Carbon Dioxide 23.3 mmol/L (21.0-32.0); Chloride 101 mmol/L (98-108); Creatinine, Serum 0.95 mg/dL (0.70-1.20); EST Glomerular Filtration Rate 81 (>60); Estimated Creatinine Clearance 71.96 ml/min (50-250); Glucose 124 mg/dL (70-99); Potassium 4.1 mmol/L (3.3-5.1); Sodium Level 135 mmol/L (133-145)
--- NOTE | 2024-08-31 22:13 | PCM.HP.STD ---
[facility] - General General Date of Admission: 08/31/24 Date of Service: 08/31/24 Chief Complaint: SOB, Wheezing and Cough. HPI Narrative MIRI CAI, is a 78 M with a past medical history of essential hypertension; on metoprolol tartrate twice daily, hyperlipidemia; on high-dose atorvastatin, obesity; with BMI of 30.2 this admission, history of DM-2; currently not on treatment, history of atrial fibrillation; on apixaban, history of CVA; with severe expressive aphasia and chronic Right-sided weakness on clopidogrel with patient wheelchair-bound at baseline, history of Left internal carotid artery stenosis; s/p stent, history of skin cancer, history of cataract surgery, depression; on sertraline, BPH; on tamsulosin and doxazosin, history of GERD with esophageal stenosis; s/p esophageal dilatation on pantoprazole twice daily and OA; s/p Left total shoulder replacement who presents to [facility] ER after staff at [facility] noted patient was having shortness of breath, wheezing and cough. Mr. Cai is not a reliable historian at this time so information was gathered from chart, medical staff and computer. According to the records the patient had already previously been started on oral azithromycin earlier today for presumed bronchitis but when his saturations on room air dropped to 88% he was sent in for further evaluation and treatment. Shortly after arrival he was noted to have a low-grade fever of 99.8 ?F with multiple people at that facility noted to have RSV. In the ER he was diagnosed with acute RSV infection complicated by clinical evidence of Acute Bronchitis along with severe wheezing causing Acute Respiratory Insufficiency and he was then admitted to the general medical floor with telemetric monitoring for a stay that is expected to extend beyond 2 midnights. [facility] Medical History Esophageal stenosis History of left common carotid artery stent placement Hyperlipidemia Hypertension Atrial fibrillation History of skin cancer Stenosis of left internal carotid artery Stroke Cataract Afib Diabetes Home Medications ?Medication ?Instructions ?Recorded ?Last Taken ?Type apixaban 5 mg tablet (Eliquis) 5 mg PO BID Check with primary 02/19/22 Unknown History doctor atorvastatin 80 mg tablet 80 mg PO QHS cholesterol 02/19/22 Unknown History clopidogrel 75 mg tablet (Plavix) 75 mg PO DAILY Check with primary 02/19/22 Unknown History doctor metoprolol tartrate 50 mg tablet 50 mg PO BID BP 02/19/22 Unknown History tamsulosin 0.4 mg capsule (Flomax) 0.4 mg PO DAILY retention 02/19/22 02/19/22 08:30 History vit A 7,160 unit-vit C 113 mg-vit 1 tab PO DAILY Check with primary 02/19/22 Unknown History E 100 [id number] tablet doctor doxazosin 1 mg tablet 1 mg PO QHS urine 04/12/22 Unknown History menthol 0.44 %-zinc oxide 20.6 % 1 applic topical BID@0600,2200 04/12/22 Unknown History topical ointment (Calmoseptine) cream pantoprazole 40 mg tablet,delayed 40 mg PO BID heartburn 04/12/22 Unknown History release sennosides 8.6 mg-docusate sodium 1 tab PO QHS constipation 04/12/22 Unknown History 50 mg tablet (Stool Softener-Stimulant Laxative) Arthritis Pain Compound 0 click topical BID ##0 05/02/22 Unknown Rx acetaminophen 500 mg tablet 1,000 mg (2 x 500 mg) PO Q8 #0 tabs 05/02/22 Unknown Rx bisacodyl 10 mg rectal suppository 10 mg OR .PRN X 1 PRN Constipation 05/02/22 Unknown Rx #0 ea food supplemt, lactose-reduced 120 ml PO 4X/DAY #0 mL 05/02/22 Unknown Rx 0.08 gram-1.5 kcal/mL oral liquid (Ensure Plus High Protein) magnesium hydroxide 400 mg/5 mL 30 ml PO .PRN X 1 PRN Constipation 05/02/22 Unknown Rx oral suspension #0 mL oxymetazoline 0.05 % nasal spray 2 spray intranasal Q12H PRN 05/02/22 Unknown Rx (Afrin (oxymetazoline)) epistaxis 3 days #15 mL sodium chloride 0.65 % nasal spray 1 spray NASAL ACHS #0 mL 05/02/22 Unknown Rx aerosol (Deep Sea Nasal) azithromycin 250 mg tablet 250 mg PO DAILY 08/31/24 Unknown History (Zithromax) loperamide 2 mg capsule 2 mg PO Q6H PRN loose stool 08/31/24 Unknown History (Anti-Diarrheal (loperamide)) nystatin 100,000 unit/gram topical topical 08/31/24 Unknown History powder sertraline 25 mg tablet 25 mg PO DAILY 08/31/24 Unknown History tizanidine 4 mg tablet 4 mg PO QHS 08/31/24 Unknown History Allergy/AdvReac Type Severity Reaction Status Date / Time No Known Allergies Allergy Verified 08/31/24 20:13 Family History no significant family his Surgical History Status post dilation of esophageal narrowing History of left shoulder replacement History of cataract surgery History of left shoulder replacement Social History household members: none Smoking Status: Current some day smoker tobacco type: pipe and cigars alcohol intake: current alcohol intake frequency: holidays/special occasions only substance use type: does not use ROS ROS Narrative Full review of systems was not possible due to patient's expressive aphasia and acute illness. Vital Signs Vital Signs Vital Signs: 08/31/24 20:14 08/31/24 20:20 08/31/24 20:22 Temperature 99.8 F H 99.8 F H Temperature Source Oral Oral Pulse Rate 78 82 Respiratory Rate 26 H 24 H Respiratory Effort Short of Breath Respiratory Pattern Tachypnea Blood Pressure 146/92 H 146/92 H Blood Pressure Mean 110 110 Pulse Ox 94 94 Oxygen Delivery Method Room Air Room Air Room Air 08/31/24 21:07 08/31/24 21:20 Temperature 98.2 F Temperature Source Oral Pulse Rate 71 80 Respiratory Rate 18 24 H Respiratory Effort Respiratory Pattern Blood Pressure 126/94 H Blood Pressure Mean 104 Pulse Ox 93 Oxygen Delivery Method Room Air Weight Weight: 210 lb 12.191 oz Body Mass Index (BMI) 30.2 Physical Exam Const alert, oriented x3 and no apparent distress Constitutional Narrative: Obese and chronically ill in appearance. General Appearance: cooperative HEENT normocephalic, head/scalp atraumatic, hearing grossly normal bilaterally and moist oral mucous membranes Eyes PERRL, EOMs intact bilaterally and conjunctivae normal Neck no lymphadenopathy and supple Resp Resp Narrative: Diminished breath sounds throughout with expiratory wheezes and rhonchi. Auscultation: rhonchi and wheezes Cardio regular rate and regular rhythm GI normal to inspection, nondistended, normoactive bowel sounds, soft to palpation, non-tender and non-distended GI Narrative: Obese. Extremity normal to inspection, full ROM and no clubbing, cyanosis or edema Skin Skin Narrative: Patient has evidence of rash, abscess, wounds or jaundice. Neuro Neuro Narrative: Patient has chronic Right-sided weakness with expressive aphasia which is apparently unchanged from previous. Sensorium / Orientation: awake, alert, oriented to person and oriented to place Speech: speech normal Psych affect normal Results Medical Records Data Attestation: I reviewed the patient's medical records Lab / Micro Data Attestation: I reviewed the patient's lab results. 08/31/24 20:27 08/31/24 20:27 Labs: Laboratory Results - last 24 hr 08/31/24 20:27: WBC 6.3, RBC 4.34 L, Hgb 13.1, Hct 38.6 L, MCV 88.9, MCH 30.2, MCHC 33.9, RDW Std Deviation 47.5 H, RDW Coeff of Juan 14.6, Plt Count 210, MPV 10.3, Immature Gran % (Auto) 0.200, Neut % (Auto) 69.2, Lymph % (Auto) 15.7 L, Mcduffie % (Auto) 11.1 H, Eos % (Auto) 3.3, Baso % (Auto) 0.5, Absolute Neuts (auto) 4.4, Absolute Lymphs (auto) 0.99, Nucleated RBC % 0, Sodium 135, Potassium 4.1, Chloride 101, Carbon Dioxide 23.3, Anion Gap 10, BUN 14, Creatinine 0.95, Estim Creat Clear Calc 71.96, Est GFR (MDRD) Non-Af 81, BUN/Creatinine Ratio 14.9, Glucose 124 H, Calcium 9.3 Micro: Microbiology 08/31/24 20:50 Mucosa - Nose SARS-CoV-2, Influenza & RSV (PCR) - Final RSV Imaging Radiology Impression Chest X-Ray 08/31/24 20:50 IMPRESSION: Poor inspiration with some bibasilar atelectasis. Reading Location: [id number] Assessment & Plan Assessment/Plan (1) Acute bronchitis due to respiratory syncytial virus: (2) Acute bronchospasm: (3) Respiratory insufficiency: (4) History of CVA with residual deficit: (5) Right hemiplegia: (6) Obesity (BMI 30-39.9): (7) History of atrial fibrillation: (8) Anticoagulated: PLAN: Plan 1. RSV infection complicated by clinical evidence of Acute Bronchitis causing Acute Bronchospasm - Admit to general medical floor with telemetric monitoring under contact and droplet precautions. Continue IV azithromycin and start IV methylprednisolone with scheduled and as needed nebulizers. Give vitamin D3, vitamin C and zinc to help boost immunity and hopefully speed recovery. Give acetaminophen as needed for pain or fever. 2. Acute Respiratory Insufficiency attributable to #1 - Wean supplemental oxygen as tolerated. 3. History of CVA; with severe expressive aphasia and chronic Right-sided weakness on clopidogrel with patient wheelchair-bound at baseline complicating #1 & #2 - Noted with PT/OT and case management consult and treat on rounds in a.m. with help appreciated in advance. 4. Obesity; with BMI of 30.2 this admission adding to the burden of disease outlined from #1 - #3 - Weight loss will be recommended. Check TSH. This complicates his case and may hamper recovery. 5. History of atrial fibrillation; on apixaban adding to the medical complexity of #1 - #4 - Maintain apixaban as previous. 6. Essential hypertension; on metoprolol tartrate twice daily - Resume current treatment. 7. Hyperlipidemia; on high-dose atorvastatin - Continue statin as before. 8. History of DM-2; currently not on treatment - Check hemoglobin A1c to confirm status. 9. History of Left internal carotid artery stenosis; s/p stent - Noted. 10. History of skin cancer - Noted. 11. History of cataract surgery - Noted. 12. Depression; on sertraline - Maintain current therapy. 13. BPH; on tamsulosin and doxazosin - Current regimen to be continued. 14. History of GERD with esophageal stenosis; s/p esophageal dilatation on pantoprazole twice daily - Resume PPI as previous. 15. OA; s/p Left total shoulder replacement - Give acetaminophen as needed as outlined in #1. 16. DVT prophylaxis - Patient is already on apixaban for #5 which will be continued. Total time: Approximately (but not less than) 75 minutes. Charges/Coding Visit Charges Inpatient E&M: 74231 Init Hosp L3
--- NOTE | 2024-08-31 22:13 | HP.PCM.HOS_ITS ---
[facility] - General General Date of Admission: 08/31/24 Date of Service: 08/31/24 Chief Complaint: SOB, Wheezing and Cough. HPI Narrative MIRI REES, is a 78 M with a past medical history of essential hypertension; on metoprolol tartrate twice daily, hyperlipidemia; on high-dose atorvastatin, obesity; with BMI of 30.2 this admission, history of DM-2; currently not on treatment, history of atrial fibrillation; on apixaban, history of CVA; with severe expressive aphasia and chronic Right-sided weakness on clopidogrel with patient wheelchair-bound at baseline, history of Left internal carotid artery stenosis; s/p stent, history of skin cancer, history of cataract surgery, depression; on sertraline, BPH; on tamsulosin and doxazosin, history of GERD with esophageal stenosis; s/p esophageal dilatation on pantoprazole twice daily and OA; s/p Left total shoulder replacement who presents to [facility] ER after staff at [facility] noted patient was having shortness of breath, wheezing and cough. Mr. Rees is not a reliable historian at this time so information was gathered from chart, medical staff and computer. According to the records the patient had already previously been started on oral azithromycin earlier today for presumed bronchitis but when his saturations on room air dropped to 88% he was sent in for further evaluation and treatment. Shortly after arrival he was noted to have a low-grade fever of 99.8 ?F with multiple people at that facility noted to have RSV. In the ER he was diagnosed with acute RSV infection complicated by clinical evidence of Acute Bronchitis along with severe wheezing causing Acute Respiratory Insufficiency and he was then admitted to the general medical floor with telemetric monitoring for a stay that is expected to extend beyond 2 midnights. [facility] Medical History Esophageal stenosis History of left common carotid artery stent placement Hyperlipidemia Hypertension Atrial fibrillation History of skin cancer Stenosis of left internal carotid artery Stroke Cataract Afib Diabetes Home Medications ?Medication ?Instructions ?Recorded ?Last Taken ?Type apixaban 5 mg tablet (Eliquis) 5 mg PO BID Check with primary 02/19/22 Unknown History doctor atorvastatin 80 mg tablet 80 mg PO QHS cholesterol 04/02 Unknown History clopidogrel 75 mg tablet (Plavix) 75 mg PO DAILY Check with primary 02/19/22 Unknown History doctor metoprolol tartrate 50 mg tablet 50 mg PO BID BP 02/19 Unknown History tamsulosin 0.4 mg capsule (Flomax) 0.4 mg PO DAILY ret ention 02/19/22 02/19/22 08:30 History vit A 7,160 unit-vit C 113 mg-vit 1 tab PO DAILY Check with primary 02/19/22 Unknown History E 100 [id number] tablet doctor doxazosin 1 mg tablet 1 mg PO QHS urine 04/12/22 U nknown History menthol 0.44 %-zinc oxide 20.6 % 1 applic topical BID@ 0600,2200 04/12/22 Unknown History topical ointment (Calmoseptine) cream pantoprazole 40 mg tablet,delayed 40 mg PO BID heartbu rn 04/12/22 Unknown History release sennosides 8.6 mg-docusate sodium 1 tab PO QHS constip ation 04/12/22 Unknown History 50 mg tablet (Stool Softener-Stimulant Laxative) Arthritis Pain Compound 0 click topical BID ##0 04/12 07/03 Unknown Rx acetaminophen 500 mg tablet 1,000 mg (2 x 500 mg) PO Q 8 #0 tabs 05/02/22 Unknown Rx bisacodyl 10 mg rectal suppository 10 mg [place] .PRN X 1 P RN Constipation 05/02/22 Unknown Rx #0 ea food supplemt, lactose-reduced 120 ml PO 4X/DAY #0 mL 05/02/22 Unknown Rx 0.08 gram-1.5 kcal/mL oral liquid (Ensure Plus High Protein) magnesium hydroxide 400 mg/5 mL 30 ml PO .PRN X 1 PRN Constipation 05/02/22 Unknown Rx oral suspension #0 mL oxymetazoline 0.05 % nasal spray 2 spray intranasal Q1 2H PRN 05/02/22 Unknown Rx (Afrin (oxymetazoline)) epistaxis 3 days #15 mL sodium chloride 0.65 % nasal spray 1 spray NASAL ACHS #0 mL 05/02/22 Unknown Rx aerosol (Deep Sea Nasal) azithromycin 250 mg tablet 250 mg PO DAILY 08/31/24 Un known History (Zithromax) loperamide 2 mg capsule 2 mg PO Q6H PRN loose stool 08/31/24 Unknown History (Anti-Diarrheal (loperamide)) nystatin 100,000 unit/gram topical topical 08/31/24 Un known History powder sertraline 25 mg tablet 25 mg PO DAILY 08/31/24 Unkn own History tizanidine 4 mg tablet 4 mg PO QHS 08/31/24 Unknown History Allergy/AdvReac Type Severity Reaction Status Date / Time No Known Allergies Allergy Verified 08/31/24 20:13 Family History no significant family his Surgical History Status post dilation of esophageal narrowing History of left shoulder replacement History of cataract surgery History of left shoulder replacement Social History household members: none Smoking Status: Current some day smoker tobacco type: pipe and cigars alcohol intake: current alcohol intake frequency: holidays/special occasions only substance use type: does not use ROS ROS Narrative Full review of systems was not possible due to patient's expressive aphasia and acute illness. Vital Signs Vital Signs Vital Signs: 08/31/24 20:14 08/31/24 20:20 08/31/24 20:22 Temperature 99.8 F H 99.8 F H Temperature Source Oral Oral Pulse Rate 78 82 Respiratory Rate 26 H 24 H Respiratory Effort Short of Breath Respiratory Pattern Tachypnea Blood Pressure 146/92 H 146/92 H Blood Pressure Mean 110 110 Pulse Ox 94 94 Oxygen Delivery Method Room Air Room Air Room Air 08/31/24 21:07 08/31/24 21:20
--- NOTE | 2024-08-31 22:30 | ED.RN ---
This RN called and spoke with nurse at [facility] regarding patient's plan of care, no new questions at this time.
[2024-08-31 23:27] LABS: Magnesium 1.8 mg/dL (1.5-2.2)
[2024-09-01] VITALS (7 sets, daily range): BP systolic 125–134; BP diastolic 59–73; PULSE 77–105; RESP 18–24; TEMP 36.6–37; O2SAT 93–97; BMI 29.2
[2024-09-01] MEDS: 0.9% Normal Saline (1000mL) 1,000 ML 70 ML IV (00:04)
[2024-09-01] MEDS: 0.9% Saline Lock 10 ML Syringe IV ×2 (00:04→14:26)
[2024-09-01] MEDS: MethylPREDNISolone 125 MG/2 ML Vial IV (00:04)
[2024-09-01] MEDS: Acetaminophen 325 MG Tablet 650 MG PO ×2 (06:29→14:25)
[2024-09-01] MEDS: Menthol/Lanolin/Calamine/Znox 113 GM Tube 1 APPLIC TOPICAL (06:30)
[2024-09-01 07:37] LABS: Absolute Lymphocyte Count 0.51 X10^3/uL (0.83-4.51); Absolute Neutrophil Count 5.7 X10^3/uL (2.0-7.7); Eosinophil# 0.01 X10^3/uL; Eosinophils% 0.2 % (0-5); Hematocrit 38.9 % (40-54); Hemoglobin 12.8 g/dL (13.0-16.5); Lymphocyte # 0.51 X10^3/ul (0.83-4.51); Mean Corp Hgb Conc 32.9 g/dL (32-36); Mean Corpuscular Hgb 30.3 pg (27.0-32.0); Mean Corpuscular Volume 92.2 fL (80-94); Mean Platelet Vol. 10.1 fl (6.2-12.0); Monocyte# 0.11 X10^3/uL; Monocyte% 1.7 % (0-10); NRBC Flagged by Analyzer 0 % (0-5); Neutrophil # 5.68 X10^3/uL (2.7-7.7); Neutrophil % 89.6 % (47-70); POSITIVE DIFFERENTIAL YES; Platelet Count 195 K/mm3 (150-450); RBC Distribution Width CV 14.6 % (11.6-14.6); RBC Distribution Width SD 49.1 fl (35.1-43.9); Red Blood Count 4.22 M/mm3 (4.6-6.2); White Blood Count 6.3 K/mm3 (4.4-11.0)
[2024-09-01 07:58] LABS: ALB/GLOB Ratio 1.3 RATIO (0.9-2.4); AST(SGOT) 24 U/L (<=37); Alanine Aminotransfer ALT/SGPT 25 U/L (<=46); Albumin, Serum 3.4 g/dL (3.4-4.8); Alkaline Phosphatase 93 U/L (40-129); Anion Gap 12 (5-15); BUN 15 mg/dL (4-19); BUN/Creat Ratio 18.2 RATIO (10-20); Calcium,Total 8.7 mg/dL (7.6-11.0); Carbon Dioxide 19.5 mmol/L (21.0-32.0); Chloride 103 mmol/L (98-108); Creatinine, Serum 0.83 mg/dL (0.70-1.20); EST Glomerular Filtration Rate 89 (>60); Globulin 2.7 g/dL (2.2-4.2); Glucose 173 mg/dL (70-99); Phosphorus 3.4 mg/dL (2.7-4.5); Potassium 4.1 mmol/L (3.3-5.1); Protein, Total 6.2 g/dL (5.9-8.4); Sodium Level 134 mmol/L (133-145); Total Bilirubin 0.54 mg/dL (0.00-1.30)
--- NOTE | 2024-09-01 08:40 | PCM.PN.HOSP ---
Reason for Visit Reason for Visit: Shortness of breath/wheezing/cough Subjective Subjective Patient states overall he does feel little bit better. Still on some oxygen. No specific complaints at this time. Denies any fevers or chills currently. States he smokes cigars but does not inhale. Objective Data Objective Data Vital Signs: Vital Signs Temp Pulse Resp BP Pulse Ox O2 Del Method O2 Flow Rate 98.2 F 77 18 134/73 H 96 Nasal Cannula 2 09/01/24 06:21 09/01/24 06:21 09/01/24 06:21 09/01/24 06:21 09/01/24 06:21 09/01/24 06:21 09/01/24 06:21 Oxygen Flow Rate (L/min) 2 Oxygen Delivery Method Nasal Cannula Weight: 92.7 kg Body Mass Index (BMI) 29.2 Intake & Output: Intake and Output for Last 24 Hours 08/30/24 08/31/24 09/01/24 23:59 23:59 23:59 Intake Total 1000 / 1000 100 / 100 Output Total 300 / 300 Balance 1000 / 1000 -200 / -200 Lab / Micro Data 09/01/24 07:12 09/01/24 07:12 Labs: Laboratory Results - last 24 hr 08/31/24 20:27: WBC 6.3, RBC 4.34 L, Hgb 13.1, Hct 38.6 L, MCV 88.9, MCH 30.2, MCHC 33.9, RDW Std Deviation 47.5 H, RDW Coeff of Juan 14.6, Plt Count 210, MPV 10.3, Immature Gran % (Auto) 0.200, Neut % (Auto) 69.2, Lymph % (Auto) 15.7 L, Jerome % (Auto) 11.1 H, Eos % (Auto) 3.3, Baso % (Auto) 0.5, Absolute Neuts (auto) 4.4, Absolute Lymphs (auto) 0.99, Nucleated RBC % 0, Sodium 135, Potassium 4.1, Chloride 101, Carbon Dioxide 23.3, Anion Gap 10, BUN 14, Creatinine 0.95, Estim Creat Clear Calc 71.96, Est GFR (MDRD) Non-Af 81, BUN/Creatinine Ratio 14.9, Glucose 124 H, Calcium 9.3, Magnesium 1.8, TSH 4.360 H 09/01/24 07:12: WBC 6.3, RBC 4.22 L, Hgb 12.8 L, Hct 38.9 L, MCV 92.2, MCH 30.3, MCHC 32.9, RDW Std Deviation 49.1 H, RDW Coeff of Juan 14.6, Plt Count 195, MPV 10.1, Immature Gran % (Auto) 0.500, Neut % (Auto) 89.6 H, Lymph % (Auto) 8.0 L, Jerome % (Auto) 1.7, Eos % (Auto) 0.2, Baso % (Auto) 0.0, Absolute Neuts (auto) 5.7, Absolute Lymphs (auto) 0.51 L, Nucleated RBC % 0, Sodium 134, Potassium 4.1, Chloride 103, Carbon Dioxide 19.5 L, Anion Gap 12, BUN 15, Creatinine 0.83, Estim Creat Clear Calc 81.20, Est GFR (MDRD) Non-Af 89, BUN/Creatinine Ratio 18.2, Glucose 173 H, Calcium 8.7, Phosphorus 3.4, Total Bilirubin 0.54, AST 24, ALT 25, Alkaline Phosphatase 93, Total Protein 6.2, Albumin 3.4, Globulin 2.7, Albumin/Globulin Ratio 1.3 Micro: Microbiology 08/31/24 20:50 Mucosa - Nose SARS-CoV-2, Influenza & RSV (PCR) - Final RSV Radiography Diagnostic Testing: Radiology Impression Chest X-Ray 08/31/24 20:50 IMPRESSION: Poor inspiration with some bibasilar atelectasis. Reading Location: [facility] Physical Exam Const alert, oriented x3, no apparent distress and well nourished; Negative for average body habitus or healthy appearing Constitutional Narrative: Overweight, elderly, white male, sitting up in bed, watching television, appears comfortable and nontoxic HEENT head/scalp atraumatic and moist oral mucous membranes HEENT Narrative: Mallampati is 3, no thrush Head and Scalp: normocephalic Eyes conjunctivae normal Neck supple Neck Narrative: Trachea midline Resp normal respiratory effort, no retractions, no use of accessory muscles and No clear to auscultation bilaterally Resp Narrative: Few fine crackles in bases bilaterally Auscultation: crackles; Negative for rales, rhonchi or wheezes Cardio regular rate, regular rhythm, S1 normal heart sound, S2 normal heart sound, no murmurs, no rub, no gallops and no clicks GI normal to inspection, nondistended, normoactive bowel sounds, soft to palpation and non-tender Extremity no clubbing, cyanosis or edema Extremity Narrative: Pedal pulses are 2+, radial pulses are 2+ Neuro oriented x3, No moves all extremities and No no focal motor deficits Neuro Narrative: Patient with pretty significant right-sided weakness, flexion contracture at hand and elbow of upper extremity right lower extremity with some plantarflexion contracture and decreased movement due to previous stroke Speech: speech normal Psych affect normal Psych Narrative: Very pleasant, interacts appropriately Assessment & Plan Assessment/Plan (1) RSV infection: (2) Hypoxia: PLAN: Plan Acute hypoxia secondary to RSV infection - Rapid PCR was positive for RSV - Patient with no significant sputum production - Continue scheduled and as needed aerosols - Continue Solu-Medrol will change to 40 every 8 - Incentive spirometer - Acapella - Start Mucinex 1200 p.o. twice daily - Stop antibiotics as there does not seem to be a superimposed pneumonia - patient with significant monocytosis on presentation Generalized weakness/debility - PT/OT/speech therapy consultation -case management/social work consultation for assistance with discharge planning as patient may need home health - Patient currently resides at [facility] History of stroke with right-sided weakness - Patient is wheelchair-bound at baseline - PT/OT/speech therapy consultation as patient does have some expressive aphasia - Continue home Plavix - Continue apixaban - Continue secondary risk factors Essential hypertension/hyperlipidemia - Continue home metoprolol -Continue Cardura - Continue home atorvastatin Paroxysmal atrial fibrillation - Continue apixaban - Continue home metoprolol Carotid artery stenosis - Status post stent in left - Continue to modify risk factors BPH with obstruction -continue home Flomax GERD/esophageal stenosis - Continue home PPI - Patient with previous esophageal dilation Depression - Continue home sertraline DVT prophylaxis - Continue apixaban CODE STATUS - Verified with facility patient is DNR CCA with no intubation Charges/Coding Visit Charges Inpatient E&M: 97213 Subs Hosp L2
--- NOTE | 2024-09-01 08:50 | NURSING ---
call placed to [facility]- talked with nurse Bobby. requested he fax over a copy of the [place] DNR form.
--- NOTE | 2024-09-01 09:03 | CASEMGMT ---
Addendum entered by Kerri George 09/01/24 12:41: Per [facility], pt does not have any advanced directives on file. SW updated. Kerri George DC Planning Asst. Original Note: Discharge Planning [facility] to fax any advanced directive that pt may have on file. Kerri George DC Planning Asst.
--- NOTE | 2024-09-01 09:27 | CASEMGMT ---
Discharge Planning Per [facility], [facility] resides in [place]. Kerri George DC Planning Asst.
[2024-09-01] MEDS: Sodium Chloride 0.65% 1 SPRAY SPRAY.BTL NASAL ×2 (09:45→14:26)
[2024-09-01] MEDS: Ensure Plus High Protein 120 ML LIQUID PO (09:45)
[2024-09-01] MEDS: guaiFENesin 1,200 MG Tablet 1200 MG PO (09:46)
[2024-09-01] MEDS: Zinc Sulfate 50 mg zinc (220 mg) ORAL capsule PO (09:46)
[2024-09-01] MEDS: APIXABAN 5 MG TABLET PO (09:46)
[2024-09-01] MEDS: Metoprolol Tartrate 50 MG Tablet PO (09:47)
[2024-09-01] MEDS: Sertraline 50 MG Tablet 25 MG PO (09:47)
[2024-09-01] MEDS: Azithromycin 250 MG Tablet PO (09:47)
[2024-09-01] MEDS: Pantoprazole Sodium 40 MG Tablet PO (09:47)
[2024-09-01] MEDS: Cholecalciferol (Vit D3) 125 MCG CAPSULE (5,000 UNITS) PO (09:47)
[2024-09-01] MEDS: Tamsulosin HCl 0.4 MG Capsule PO (09:47)
[2024-09-01] MEDS: Ascorbic Acid 500 MG Tablet 1000 MG PO ×2 (09:47→17:24)
[2024-09-01] MEDS: Clopidogrel Bisulfate 75 MG Tablet PO (09:47)
[2024-09-01] MEDS: Lactobacillis Acidophilus 1 CAP PO ×3 (09:47→17:24)
[2024-09-01] MEDS: Nystatin Powder 15gm Bottle 1 APPLIC TOPICAL (09:48)
--- NOTE | 2024-09-01 14:23 | CASEMGMT ---
Discharge Planning Updates faxed to Ashley @ [facility]. Fax confirmation rec'benny. Kerri George DC Planning Asst.
[2024-09-01] MEDS: Methylprednisolone Sod Succ 40 MG/ML VIAL IV (14:26)
[2024-09-01] MEDS: Ipratropium/Albuterol Sulfate 3 ML AMPUL.NEB INHALATION ×2 (14:40→19:20)
[2024-09-02] VITALS (9 sets, daily range): BP systolic 118–133; BP diastolic 59–70; PULSE 65–83; RESP 16–20; TEMP 36.2–36.9; O2SAT 91–96; BMI 29.2
[2024-09-02] MEDS: Menthol/Lanolin/Calamine/Znox 113 GM Tube 1 APPLIC TOPICAL ×2 (01:19→05:41)
[2024-09-02] MEDS: Doxazosin 1 MG Tablet PO (01:19)
[2024-09-02] MEDS: APIXABAN 5 MG TABLET PO ×2 (01:19→08:34)
[2024-09-02] MEDS: Ensure Plus High Protein 120 ML LIQUID PO ×3 (01:19→13:58)
[2024-09-02] MEDS: Atorvastatin Calcium 80 MG Tablet PO (01:20)
[2024-09-02] MEDS: Metoprolol Tartrate 50 MG Tablet PO ×2 (01:20→08:33)
[2024-09-02] MEDS: Methylprednisolone Sod Succ 40 MG/ML VIAL IV ×3 (01:20→13:58)
[2024-09-02] MEDS: guaiFENesin 1,200 MG Tablet 1200 MG PO ×2 (01:20→08:33)
[2024-09-02] MEDS: Sodium Chloride 0.65% 1 SPRAY SPRAY.BTL NASAL ×3 (01:21→08:35)
[2024-09-02] MEDS: Pantoprazole Sodium 40 MG Tablet PO ×2 (01:21→08:34)
[2024-09-02] MEDS: Nystatin Powder 15gm Bottle 1 APPLIC TOPICAL ×2 (01:21→08:34)
[2024-09-02] MEDS: Senna/Docusate Sodium 1 Tablet PO (01:21)
[2024-09-02] MEDS: Acetaminophen 325 MG Tablet 650 MG PO ×3 (01:22→13:58)
[2024-09-02] MEDS: tiZANidine HCl 2 MG Tablet 4 MG PO (01:22)
[2024-09-02] MEDS: Ipratropium/Albuterol Sulfate 3 ML AMPUL.NEB INHALATION ×2 (06:58→12:55)
[2024-09-02 07:12] LABS: Phosphorus 2.4 mg/dL (2.7-4.5)
[2024-09-02] MEDS: Tamsulosin HCl 0.4 MG Capsule PO (08:34)
[2024-09-02] MEDS: Sertraline 50 MG Tablet 25 MG PO (08:34)
[2024-09-02] MEDS: Clopidogrel Bisulfate 75 MG Tablet PO (08:34)
--- NOTE | 2024-09-02 10:51 | PCM.DC.SUM ---
Providers Date of Admission: 08/31/24 Date of Discharge: 09/02/24 Primary Care Physician: Dr. Eligio Contreras MD Reason For Visit: RSV AND ACUTE BRONCHITIS Diagnosis Discharge Diagnosis (1) RSV infection: Status: Acute Code(s): B33.8 - Other specified viral diseases (2) Hypoxia: Status: Acute Code(s): R09.02 - Hypoxemia Medications at Discharge Home Medications apixaban 5 mg tablet (Eliquis) 5 mg PO BID Check with primary doctor 02/19/22 atorvastatin 80 mg tablet 80 mg PO QHS cholesterol 02/19/22 clopidogrel 75 mg tablet (Plavix) 75 mg PO DAILY Check with primary doctor 02/19/22 metoprolol tartrate 50 mg tablet 50 mg PO BID BP 02/19/22 tamsulosin 0.4 mg capsule (Flomax) 0.4 mg PO DAILY retention 02/19/22 vit A 7,160 unit-vit C 113 mg-vit E 100 itef-hzkl-jgeidz tablet 1 tab PO DAILY Check with primary doctor 02/19/22 doxazosin 1 mg tablet 1 mg PO QHS urine 04/12/22 menthol 0.44 %-zinc oxide 20.6 % topical ointment (Calmoseptine) 1 applic topical BID@0600,2200 cream 04/12/22 pantoprazole 40 mg tablet,delayed release 40 mg PO BID heartburn 04/12/22 sennosides 8.6 mg-docusate sodium 50 mg tablet (Stool Softener-Stimulant Laxative) 1 tab PO QHS constipation 04/12/22 Arthritis Pain Compound 0 click topical BID ##0 05/02/22 acetaminophen 500 mg tablet 1,000 mg (2 x 500 mg) PO Q8 #0 tabs 05/02/22 bisacodyl 10 mg rectal suppository 10 mg MO .PRN X 1 PRN Constipation #0 ea 05/02/22 food supplemt, lactose-reduced 0.08 gram-1.5 kcal/mL oral liquid (Ensure Plus High Protein) 120 ml PO 4X/DAY #0 mL 05/02/22 magnesium hydroxide 400 mg/5 mL oral suspension 30 ml PO .PRN X 1 PRN Constipation #0 mL 05/02/22 oxymetazoline 0.05 % nasal spray (Afrin (oxymetazoline)) 2 spray intranasal Q12H PRN epistaxis 3 days #15 mL 05/02/22 sodium chloride 0.65 % nasal spray aerosol (Deep Sea Nasal) 1 spray NASAL ACHS #0 mL 05/02/22 loperamide 2 mg capsule (Anti-Diarrheal (loperamide)) 2 mg PO Q6H PRN loose stool 08/31/24 nystatin 100,000 unit/gram topical powder topical 08/31/24 sertraline 25 mg tablet 25 mg PO DAILY 08/31/24 tizanidine 4 mg tablet 4 mg PO QHS 08/31/24 guaifenesin 1,200 mg tablet, extended release 12 hr (Mucus Relief ER) 1,200 mg PO BID #0 tabs 09/02/24 prednisone 10 mg tablet 10 mg PO DAILY #40 tabs 09/02/24 Hospital Course Operations None Procedures - (Chest x-ray) Summary of Care Provided Minutes Spent on Discharge: 36 Hospital Course: Mr. Cai is an 78-year-old white male who presented to the emergency department at [facility] on 08/31/2024 with chief complaint of shortness of breath, wheezing, and cough. Patient is wheelchair-bound at baseline and has chronic right-sided weakness and some expressive aphasia related to previous stroke. He is a resident at [facility] in [place] and they noted he was having some shortness of breath, wheezing, and a cough so they sent him to the emergency department. He was placed on azithromycin 250 mg daily x 5 days for presumed bronchitis however his oxygen saturations dropped to 88% on room air so he was sent in for further evaluation. Vital signs on presentation showed temperature of 99.8, heart rate 78, respiratory rate 26, blood pressure 146/92 and pulse ox was initially 94% on room air however his oxygen saturations dropped and he required 2 L nasal cannula. CBC was unremarkable other than a monocytosis. Chemistry panel was unremarkable. He had mild hyperglycemia with a blood glucose of 124. Chest x-ray showed no acute findings. COVID/flu/RSV PCR was performed and he was positive for RSV. Given his hypoxemia he required admission was placed on treatment for acute exacerbation of COPD. Patient does smoke cigars but does not inhale. He also is reportedly a pipe smoker as well. He was initially significantly wheezy on exam. He was placed on scheduled nebulizers, steroids, and placed on status from a tree and Acapella as well as Mucinex. We were able to wean him off oxygen by 09/02/2024 and his oxygen saturations were 95% at rest on room air. Given the fact that he is not ambulatory baseline were unable to assess an ambulatory pulse ox. Given his significant improvement we are able to discharge him back to his assisted living environment. He was at his baseline functional status as well. He was sent with a prednisone taper, ongoing Mucinex for the next 7 days and instructed to continue his incentive spirometer and Acapella 3-4 times a day 10 times each for the next 7 days. He should avoid a lot of contact with other people for the next 7 to 10 days due to his RSV infection and potential spread. Of asked that he follow-up with his primary care physician within the next week. Discharge diagnoses: Acute hypoxia Acute RSV infection Generalized weakness Debility History of stroke with chronic right-sided weakness Mobility issues Essential hypertension Hyperlipidemia Paroxysmal atrial fibrillation Carotid artery stenosis BPH with obstruction GERD Esophageal stenosis Depression Physical Exam Const alert, oriented x3, no apparent distress, no limitations and well nourished; Negative for average body habitus or healthy appearing Constitutional Narrative: Overweight, elderly, white male, sitting up in bed, watching television and eating breakfast, appears comfortable and nontoxic General Appearance: cooperative, comfortable, well kempt and well developed Exam Limitations: no limitations Nutritional Appearance: overweight HEENT normocephalic, head/scalp atraumatic and moist oral mucous membranes HEENT Narrative: Mallampati 2, no thrush, mild hearing loss Eyes conjunctivae normal Eyes Narrative: No scleral icterus Neck no lymphadenopathy and supple Neck Narrative: Trachea midline Resp normal respiratory effort, no retractions, no use of accessory muscles and No clear to auscultation bilaterally Resp Narrative: Scattered end expiratory wheezes Auscultation: wheezes; Negative for crackles, rales or rhonchi Cardio regular rate, regular rhythm, S1 normal heart sound, S2 normal heart sound, no murmurs, no rub, no gallops and no clicks GI normal to inspection, nondistended, normoactive bowel sounds, soft to palpation, non-tender and non-distended GI Narrative: Obese. Extremity no clubbing, cyanosis or edema Extremity Narrative: Pedal pulses are 2+, radial pulses are 2+ Skin skin turgor normal and no jaundice Neuro oriented x3, No moves all extremities and No no focal motor deficits Neuro Narrative: Patient with pretty significant right-sided weakness, flexion contracture at hand and elbow of upper extremity right lower extremity with some plantarflexion contracture and decreased movement due to previous stroke Speech: speech normal Psych affect normal Psych Narrative: Very pleasant, interacts appropriately Weight / BMI Weight Weight: 92.6 kg Body Mass Index (BMI) 29.2 ABG / Lab / Microbiology Data 09/01/24 07:12 09/01/24 07:12 Laboratory: Laboratory Results - last 24 hr 09/02/24 06:02: Phosphorus 2.4 L Microbiology: Microbiology 08/31/24 20:50 Mucosa - Nose SARS-CoV-2, Influenza & RSV (PCR) - Final RSV D/C Instructions Discharge Diet: Low fat / Low cholesterol Discharge Activity: Return to Normal Activity DC O2, CPAP, BIPAP Needs Home O2 Discharge instructions: No Meaningful Use Info Meaningful Use Meaningful Use Diagnoses (Choose all that apply): None applicable Ischemic Stroke Statin Dosing Therapy Reference: STATIN DOSE THERAPY REFERENCE: * Patients > 75 years receive moderate or high dose statin therapy. * Patients 75 years or YOUNGER should receive HIGH intensity statin dose unless contraindicated. You will be required to document reason for non-treatment if statin daily dose does not meet guidelines. HIGH DOSE STATIN THERAPY DAILY Atorvastatin > than or = to 40 mg Rosuvastatin > than or = to 20 mg Amlodipine + Atorvastatin > than or = to 2.5/40 mg Ezetimibe + Simvastatin 10/80 mg Simvastatin 80mg Discharge Plan Admission Admit Date/Time: 08/31/24 22:59 Primary Reason for Your Visit: Shortness of breath/wheezing/cough Attending Provider: Merary Wong Primary Care Provider: Eligio Contreras Consulting Providers: Merary Wong; Carlos Cassidy Instructions Additional Instructions / Restrictions: 1. You were diagnosed with RSV virus. 2. Please continue to use your incentive spirometer and Acapella after discharge for the next 7 to 10 days 3-4 times a day to help your lung function Discharge Orders/Prescriptions Prescriptions: New guaifenesin [Mucus Relief ER] 1,200 mg Tablet Extended Release 12hr 1,200 mg PO BID Qty: 0 0RF Rx Instructions: Take for the next 7 days prednisone 10 mg tablet 10 mg PO DAILY Qty: 40 0RF Rx Instructions: 4 tablets x 4 days, 3 tablets x 4 days, 2 tablets x 4 days, 1 tablet x 4 days then stop Continued atorvastatin 80 mg Tablet 80 mg PO QHS clopidogrel [Plavix] 75 mg Tablet 75 mg PO DAILY tamsulosin [Flomax] 0.4 mg Capsule 0.4 mg PO DAILY metoprolol tartrate 50 mg Tablet 50 mg PO BID Eliquis 5 mg Tablet 5 mg PO BID vit A-vit C-vit [id number]-gfao-[id number] 7,160-113-100 hkct-[id number] Tablet 1 tab PO DAILY doxazosin 1 mg tablet 1 mg PO QHS sennosides-docusate sodium [Stool Softener-Stimulant Laxat] 8.6-50 mg tablet 1 tab PO QHS pantoprazole 40 mg tablet,delayed release (DR/EC) 40 mg PO BID menthol-zinc oxide [Calmoseptine] 0.44-20.6 % ointment 1 applic topical BID@0600,2200 Protocol: *Topical Application Instructions APPLICATION INSTRUCTIONS: apply to buttocks and coccyx acetaminophen 500 mg Tablet 1,000 mg PO Q8 Qty: 0 0RF Arthritis Pain Compound 0 click topical BID Qty: 0 0RF bisacodyl 10 mg Suppository 10 mg MO .PRN X 1 PRN (Reason: Constipation) Qty: 0 0RF Ensure Plus High Protein 0.08 gram-1.5 kcal/mL Liquid 120 ml PO 4X/DAY Qty: 0 0RF magnesium hydroxide 400 mg/5 mL Suspension 30 ml PO .PRN X 1 PRN (Reason: Constipation) Qty: 0 0RF Deep Sea Nasal 0.65 % Aerosol,[place] 1 spray NASAL ACHS Qty: 0 0RF oxymetazoline [Afrin (oxymetazoline)] 0.05 % spray,non-aerosol 2 spray intranasal Q12H PRN (Reason: epistaxis) 3 Days Qty: 15 0RF loperamide [Anti-Diarrheal (loperamide)] 2 mg capsule 2 mg PO Q6H PRN (Reason: loose stool) tizanidine 4 mg tablet 4 mg PO QHS sertraline 25 mg tablet 25 mg PO DAILY nystatin 100,000 unit/gram powder topical Discontinued azithromycin [Zithromax] 250 mg tablet 250 mg PO DAILY Rx Instructions: take for 4 days Referrals / Follow Up: Eligio Contreras MD [Primary Care Provider] - Within 1 Week Disposition Disposition (needs filled in before D/C Order can be placed): Assisted Living Charges/Coding Visit Charges Inpatient E&M: 09413 Disch Hosp >30min
--- NOTE | 2024-09-02 11:54 | CASEMGMT ---
Pt does not qualify for home oxygen.
--- NOTE | 2024-09-02 11:58 | PHA.DC.MR.R ---
Pharmacy [place] Med Reconciliation Pharmacy Service has performed discharge medication reconciliation for this patient. The patient's discharge medication list was reviewed for discrepancies and discrepancies were resolved. Medications at Discharge Home Medications apixaban 5 mg tablet (Eliquis) 5 mg PO BID Check with primary doctor 02/19/22 atorvastatin 80 mg tablet 80 mg PO QHS cholesterol 02/19/22 clopidogrel 75 mg tablet (Plavix) 75 mg PO DAILY Check with primary doctor 02/19/22 metoprolol tartrate 50 mg tablet 50 mg PO BID BP 02/19/22 tamsulosin 0.4 mg capsule (Flomax) 0.4 mg PO DAILY retention 02/19/22 vit A 7,160 unit-vit C 113 mg-vit E 100 nwmf-qhrp-zllnmr tablet 1 tab PO DAILY Check with primary doctor 02/19/22 doxazosin 1 mg tablet 1 mg PO QHS urine 04/12/22 menthol 0.44 %-zinc oxide 20.6 % topical ointment (Calmoseptine) 1 applic topical BID@0600,2200 cream 04/12/22 pantoprazole 40 mg tablet,delayed release 40 mg PO BID heartburn 04/12/22 sennosides 8.6 mg-docusate sodium 50 mg tablet (Stool Softener-Stimulant Laxative) 1 tab PO QHS constipation 04/12/22 Arthritis Pain Compound 0 click topical BID ##0 05/02/22 acetaminophen 500 mg tablet 1,000 mg (2 x 500 mg) PO Q8 #0 tabs 05/02/22 bisacodyl 10 mg rectal suppository 10 mg VT .PRN X 1 PRN Constipation #0 ea 05/02/22 food supplemt, lactose-reduced 0.08 gram-1.5 kcal/mL oral liquid (Ensure Plus High Protein) 120 ml PO 4X/DAY #0 mL 05/02/22 magnesium hydroxide 400 mg/5 mL oral suspension 30 ml PO .PRN X 1 PRN Constipation #0 mL 05/02/22 oxymetazoline 0.05 % nasal spray (Afrin (oxymetazoline)) 2 spray intranasal Q12H PRN epistaxis 3 days #15 mL 05/02/22 sodium chloride 0.65 % nasal spray aerosol (Deep Sea Nasal) 1 spray NASAL ACHS #0 mL 05/02/22 loperamide 2 mg capsule (Anti-Diarrheal (loperamide)) 2 mg PO Q6H PRN loose stool 08/31/24 nystatin 100,000 unit/gram topical powder topical 08/31/24 sertraline 25 mg tablet 25 mg PO DAILY 08/31/24 tizanidine 4 mg tablet 4 mg PO QHS 08/31/24 guaifenesin 1,200 mg tablet, extended release 12 hr (Mucus Relief ER) 1,200 mg PO BID #0 tabs 09/02/24 prednisone 10 mg tablet 10 mg PO DAILY #40 tabs 09/02/24
--- NOTE | 2024-09-02 12:04 | CASEMGMT ---
Addendum entered by Marilu Fenton 09/02/24 12:36: [facility] is unable to transport pt back to facility. SW informed pt and pt agreeable to transport via [facility], Wheelchair van. ADAMS Barraza Original Note: Social Work SW met with pt and explained that dc is planned for today. Pt confirms plan to return to [facility] today. Pt states that he believes [facility] can provide transportation back to the facility from the hospital. DC cafe assistant updated and to check with [facility] regarding transport. Disposition: Return to [facility] today ADAMS Barraza
--- NOTE | 2024-09-02 12:13 | CASEMGMT ---
Discharge Planning Per pts alexistania Franchesca, [facility] absolutely has copies of his HC POA and LW. She will follow up with them and provide copies if they are unable to locate them. She is unable to get them to us in a timely manner (pt has dc in). SW updated. Kerri George, SESAR Planning Asst.
--- NOTE | 2024-09-02 12:33 | CASEMGMT ---
Addendum entered by Kerri George 09/02/24 12:38: Fax confirmation rec'd. Kerri George DC Planning Asst. Original Note: Discharge Planning Discharge orders and transport time faxed to [facility] @ [facility]. [facility] will transport pt by wheelchair at 3p. Nursing, SW, pt, and his niece (Franchesca) updated. Kerri George DC Planning Asst.
[2024-09-02] MEDS: 0.9% Saline Lock 10 ML Syringe IV (13:58)
== END 2024-09-02 15:48 | disposition home or self-care (01) | DRG 202 ==
LOC: ED 22:16 → MS3 22:37
PROVIDERS: Admitting Provider Internal Medicine; Emergency Provider Emergency Medicine; PCP Family Medicine; Visit Provider Internal Medicine
DX: J20.5 Acute bronchitis due to respiratory syncytial virus (principal); J44.1 Chronic obstructive pulmonary disease with (acute) exacerbation; I69.351 Hemiplegia and hemiparesis following cerebral infarction affecting right dominant side; I48.20 Chronic atrial fibrillation, unspecified; N13.8 Other obstructive and reflux uropathy; I69.320 Aphasia following cerebral infarction; K22.2 Esophageal obstruction; E11.65 Type 2 diabetes mellitus with hyperglycemia; I10 Essential (primary) hypertension; F32.A Depression, unspecified; E66.9 Obesity, unspecified; Z95.828 Presence of other vascular implants and grafts; J20.9 Acute bronchitis, unspecified; I48.0 Paroxysmal atrial fibrillation; D72.821 Monocytosis (symptomatic); M19.012 Primary osteoarthritis, left shoulder; E78.5 Hyperlipidemia, unspecified; K21.9 Gastro-esophageal reflux disease without esophagitis; I65.22 Occlusion and stenosis of left carotid artery; F17.200 Nicotine dependence, unspecified, uncomplicated; M62.421 Contracture of muscle, right upper arm; R53.81 Other malaise; R09.02 Hypoxemia; Z79.01 Long term (current) use of anticoagulants; Z68.30 Body mass index [BMI] 30.0-30.9, adult; N40.1 Benign prostatic hyperplasia with lower urinary tract symptoms; Z99.3 Dependence on wheelchair; Z79.02 Long term (current) use of antithrombotics/antiplatelets; Z79.899 Other long term (current) drug therapy; Z96.612 Presence of left artificial shoulder joint; Z98.890 Other specified postprocedural states
CPT/HCPCS: 36415; 71046; 80048; 80053; 83735; 84100; 84443; 85025; 87631; 92610; 94640; 94668; 97162; 97166; 99252; 99285; A4216; G0463

== ENCOUNTER 2024-12-26 19:35 | Emergency (ER) | payer MEDICARE, OTHER, SELFPAY ==
[2024-12-26 19:36] VITALS: BP 90/53; PULSE 49; RESP 16; TEMP 36.5; O2SAT 98; BMI 30.8
[2024-12-26 20:36] VITALS: BP 110/54; PULSE 48; RESP 17; O2SAT 96
--- NOTE | 2024-12-26 20:50 | EKG12_ITS ---
Test Reason : Blood Pressure : */* mmHG Vent. Rate : 56 BPM Atrial Rate : * BPM P-R Int : * ms QRS Dur : 76 ms QT Int : 474 ms P-R-T Axes : * -8 22 degrees QTcB Int : 457 ms Atrial fibrillation with slow ventricular response Low voltage QRS Abnormal ECG Confirmed by YOBANY BIRMINGHAM, SARAY ([id number]), news videotape editor CHANDLER ALCALA ([id number]) on 12/28/2024 6:12:25 AM Referred By: Confirmed By: SARAY HAYWOOD MD
--- NOTE | 2024-12-26 20:50 | CT_ITS ---
PROCEDURE: CTA HEAD AND NECK W/ CONTRAST 12/26/2024 REASON FOR EXAM: ALTERED MENTAL STATUS TECHNIQUE: CTA HEAD AND NECK W/ CONTRAST Multiplanar Sagittal and Coronal images were obtained. 3D and MIP post processing was performed. CONTRAST: Isovue 370 VOLUME: 99 mL One or more dose reduction techniques were used (e.g., Automated exposure control, adjustment of the mA and/or kV according to patient size, use of iterative reconstruction technique). RADIATION DOSE SUMMARY: DLP: 1714.17 mGycm COMPARISON: None available. FINDINGS: CTA HEAD: Patent intracranial arterial vasculature. No large vessel occlusion, flow- limiting stenosis, saccular aneurysm, or vascular malformation identified. Patent anterior and bilateral posterior communicating arteries. Right [place] is predominantly origin with diminutive/hypoplastic connection to the basilar, anatomic variant. CTA NECK: Conventional aortic arch branching. Bilateral cervical carotid and vertebral arteries are patent without significant stenosis. No aneurysm or dissection. Vascular stent in place within the distal left common carotid artery-proximal ICA, with small amount of eccentric noncalcified atheromatous plaque/mural thrombus without significant luminal narrowing. Dominant left vertebral artery with diffuse relatively hypoplastic caliber of the nondominant right vertebral artery. NONCONTRAST CT HEAD: No acute intracranial hemorrhage, extra-axial collection, mass effect or evidence of acute infarct. Moderate generalized brain parenchymal volume loss with associated ex vacuo ventricular enlargement, and chronic small-vessel ischemic changes throughout the supratentorial white matter. Chronic slit-like encephalomalacia along the left subinsular region, and old cortical infarct involving the left middle frontal gyrus. Absent ely sh[place] ocular lenses. Intact skull base and calvarium. Well-aerated paranasal sinuses and bilateral mastoid air cells. Mild multilevel cervical spondylotic changes. Heterogeneous multinodular thyroid gland. Visualized lung apices are clear. CT/CTA Head AND Neck W/ Contrast IMPRESSION: No acute intracranial abnormality. Moderate volume loss and chronic small-vess el ischemic changes with chronic cortical infarct involving left middle frontal gyrus, and left subinsular slit-like encephalomal acia. Patent major intracranial and cervical arterial vasculature without any signifi cant flow-limiting stenosis. Patent vascular stent in the distal left CCA-proximal ICA with thin eccentric noncalcified plaq ue. Reading Location: [facility]
--- NOTE | 2024-12-26 20:51 | EX.ED.DYSGE1 ---
HPI History of Present Illness Chief Complaint: Alt LOC Informant: patient and family Narrative Narrative: Presents to ED from [facility] living niece is present who helps with decision-making. He is DNR CC. Apparently visiting an hour ago he was slumped over not responding and drooling. He had a major stroke 2021 post shoulder surgery being off Eliquis as he has history of A-fib. Residual right sided weakness. Wheelchair with two-person assist to get around at the facility. Patient now improved per niece. She states she had carotid stent placed after stroke that failed need to be transferred back 2021. Has not been evaluated and she is concerned of this area. Patient denies cough recent vomiting diarrhea denies urinary symptoms. He is on Eliquis currently for chronic A-fib. [facility] Medical History History of atrial fibrillation Obesity (BMI 30-39.9) History of CVA with residual deficit Anticoagulated Right hemiplegia Esophageal stenosis History of left common carotid artery stent placement Hyperlipidemia Hypertension Atrial fibrillation History of skin cancer Stenosis of left internal carotid artery Stroke Cataract Afib Diabetes Home Medications ?Medication ?Instructions ?Recorded ?Last Taken ?Type apixaban 5 mg tablet (Eliquis) 5 mg PO BID Check with primary 02/19/22 Unknown History doctor atorvastatin 80 mg tablet 80 mg PO QHS cholesterol 02/19/22 Unknown History clopidogrel 75 mg tablet (Plavix) 75 mg PO DAILY Check with primary 02/19/22 Unknown History doctor metoprolol tartrate 50 mg tablet 50 mg PO BID BP 02/19/22 Unknown History tamsulosin 0.4 mg capsule (Flomax) 0.4 mg PO DAILY retention 02/19/22 02/19/22 08:30 History doxazosin 1 mg tablet 1 mg PO QHS urine 04/12/22 Unknown History menthol 0.44 %-zinc oxide 20.6 % 1 applic topical BID@0600,2200 04/12/22 Unknown History topical ointment (Calmoseptine) cream pantoprazole 40 mg tablet,delayed 40 mg PO DAILY heartburn 04/12/22 Unknown History release sennosides 8.6 mg-docusate sodium 1 tab PO QHS constipation 04/12/22 Unknown History 50 mg tablet (Stool Softener-Stimulant Laxative) acetaminophen 500 mg tablet 1,000 mg (2 x 500 mg) PO Q8 #0 tabs 05/02/22 Unknown Rx loperamide 2 mg capsule 2 mg PO Q6H PRN loose stool 08/31/24 Unknown History (Anti-Diarrheal (loperamide)) nystatin 100,000 unit/gram topical 1 applic topical Q8H 08/31/24 Unknown History powder sertraline 25 mg tablet 25 mg PO DAILY 08/31/24 Unknown History tizanidine 4 mg tablet 4 mg PO QHS 08/31/24 Unknown History acetaminophen 325 mg tablet 650 mg PO Q4H PRN fever or pain 12/26/24 Unknown History (Aminofen) bisacodyl 10 mg rectal suppository 10 mg IA PRN PRN Constipation 12/26/24 Unknown History cholecalciferol (vitamin D3) 50 2,000 unit PO DAILY 12/26/24 Unknown History mcg (2,000 unit) tablet (D3 DOTS) magnesium hydroxide 400 mg/5 mL 30 ml PO PRN PRN Constipation 12/26/24 Unknown History oral suspension magnesium hydroxide 400 mg/5 mL 30 ml PO DAILY PRN constipation 12/26/24 Unknown History oral suspension (Dulcolax (magnesium hydroxide)) multivitamin (Daily Multi-Vitamin 1 tab PO DAILY 12/26/24 Unknown History tablet) vitamin B complex (Balanced B-50 1 tab PO DAILY 12/26/24 Unknown History tablet) Allergy/AdvReac Type Severity Reaction Status Date / Time No Known Allergies Allergy Verified 12/26/24 19:36 Surgical History Status post dilation of esophageal narrowing History of left shoulder replacement History of cataract surgery History of left shoulder replacement Social History household members: none Smoking Status: Current some day smoker tobacco type: pipe and cigars alcohol intake: current alcohol intake frequency: holidays/special occasions only substance use type: does not use ROS ROS ED Constitutional Constitutional ED: Denies chills, fever(s) or sweats ENT ENT ED: Denies sore throat Cardiovascular Cardiovascular: Denies chest pain, leg edema, palpitations or racing heartbeat Respiratory/Chest Respiratory/Chest: Denies cough, dyspnea or dyspnea on exertion Gastrointestinal Gastrointestinal: Denies abdominal pain, diarrhea, nausea or vomiting Genitourinary Genitourinary ED: Denies dysuria, hematuria or urinary frequency Musculoskeletal Musculoskeletal: Denies back pain, extremity pain or neck pain Integumentary Denies rash or wounds Neurologic Neurologic: Denies headache(s), paresthesias or weakness EXAM Physical Exam Const Vital Signs: 12/26/24 19:36 12/26/24 20:36 12/26/24 21:00 Temperature 97.7 F L Temperature Source Oral Pulse Rate 49 L 48 L 51 L Respiratory Rate 16 17 17 Blood Pressure 90/53 L 110/54 L 105/70 Blood Pressure Mean 65 72 81 Pulse Ox 98 96 97 Oxygen Delivery Method Room Air 12/26/24 22:00 12/26/24 23:00 12/26/24 23:54 Temperature 97.9 F Temperature Source Pulse Rate 57 L 63 62 Respiratory Rate 15 16 16 Blood Pressure 110/65 125/68 H 128/72 H Blood Pressure Mean 80 87 90 Pulse Ox 99 99 100 Oxygen Delivery Method Room Air Room Air Positive well nourished and well developed Constitutional Narrative: Nontoxic. General Appearance ED: well developed and NAD HEENT Reports moist mucous membranes normocephalic and atraumatic Eyes General Eye ED: Yes normal appearance of both eyes Neck full ROM Chest Wall Chest: Negative for tenderness Resp normal respiratory effort and normal air movement Effort and Inspection: symmetric chest movement; Negative for respiratory distress Cardio regular rate and no murmurs Rhythm: abnormal rhythm Peripheral Pulses: pulses 2+ throughout GI normal to inspection, nondistended, normoactive bowel sounds and non-tender Palpation: Negative for guarding or rebound tenderness present Extremity normal to inspection General Extremety ED: Negative for edema or tenderness General Extremity: Negative for edema Neuro no sensory deficits noted Neuro Narrative: Alert person place told me the year is 2023. Stable moves the right arm and leg however weaker than the left side. Sensorium / Orientation: awake and alert Skin no rashes or lesions noted and no wounds MDM MDM MDM Narrative Medical decision making narrative: Interventions / MDM: Differential diagnosis: Transient confusion, history of CVA, Diagnosis considered but do not suspect: Infectious causes however UA chest x-ray negative. In treatment hemorrhage however CT negative. My EKG interpretation: A-fib rate of 56, no ST changes. Imaging independently reviewed and interpreted by myself: CT angiogram head and neck: No acute process patent stent left carotid. 1 view chest x-ray: Bilateral lower lobe atelectasis. Also read by radiology. External documents reviewed: N/A Test considered but not ordered:N/A ED course: Keli is concerned with his stroke history and failed stent. Currently mental status improving. She would like things evaluated. IV established for labs will cath for urine chest x-ray. Will obtain CT angiogram head and neck. Gentle fluids were given. Workup negative. Clinically feeling and looking much better on reevaluation. Blood pressure up to 120 systolic. Urine chest x-ray without infection. Discussed negative workup with patient and niece. Given patient will be discharged back to facility for further care. All questions were answered. Patient and niece. Re-evaluation: stable Disposition discussed with patient/family/significant other: Patient and niece Case discussed with consulting clinician: N/A This note was generated with [employer] dictation software. It may contain incorrect words, spelling, and punctuation that were not noted in checking the note before signing. Lab Data Attestation: I reviewed the patient's lab results. Labs: Laboratory Results - last 24 hr 12/26/24 12/26/24 20:30 21:41 WBC 5.4 RBC 4.07 L Hgb 12.3 L Hct 37.1 L MCV 91.2 MCH 30.2 MCHC 33.2 RDW Std Deviation 49.1 H RDW Coeff of Juan 14.6 Plt Count 222 MPV 10.4 Immature Gran % (Auto) 0.400 Neut % (Auto) 71.2 H Lymph % (Auto) 16.6 L Ma[place] % (Auto) 8.4 Eos % (Auto) 3.0 Baso % (Auto) 0.4 Absolute Neuts (auto) 3.8 Absolute Lymphs (auto) 0.89 Nucleated RBC % 0 Sodium 132 L Potassium 4.3 Chloride 97 L Carbon Dioxide 21.7 Anion Gap 13 BUN 17 Creatinine 1.10 Estim Creat Clear Calc 61.68 Est GFR (MDRD) Non-Af 67 BUN/Creatinine Ratio 15.4 Glucose 153 H Calcium 9.3 Total Bilirubin 0.47 AST 30 ALT 36 Alkaline Phosphatase 99 Total Protein 6.3 Albumin 3.8 Globulin 2.5 Albumin/Globulin Ratio 1.5 Urine Color Yellow Urine Clarity Clear Urine pH 6.5 Ur Specific [place] 1.010 Urine Protein 30 H Urine Glucose (UA) Normal Urine Ketones Negative Urine Occult Blood 10 H Urine Nitrite Negative Urine Bilirubin Negative Urine Urobilinogen Normal Ur Leukocyte Esterase Negative Urine RBC 0-5 SEEN Urine WBC 0-5 SEEN Ur Squamous Epith Cells 0 SEEN Amorphous Sediment 1+ Urine Bacteria 1+ Urine Mucus 0 SEEN Radiography Diagnostic Testing: Clinical Impression(s) from Imaging Studies Head/Neck CTA 12/26/24 20:50 IMPRESSION: No acute intracranial abnormality. Moderate volume loss and chronic small-vessel ischemic changes with chronic cortical infarct involving left middle frontal gyrus, and left subinsular slit-like encephalomalacia. Patent major intracranial and cervical arterial vasculature without any significant flow-limiting stenosis. Patent vascular stent in the distal left CCA-proximal ICA with thin eccentric noncalcified plaque. Reading Location: [facility] Chest X-Ray 12/26/24 21:20 IMPRESSION: Bibasilar atelectasis. [facility] Discharge Plan Triage Chief Complaint: Alt LOC ED Provider: Caio Wolff Dx/Rx/DC Orders Clinical Impression: Transient confusion, Chronic a-fib, Chronic anticoagulation, History of cerebrovascular accident (CVA) with residual deficit Instructions: ED AFIB, ED Confusion Prescriptions: No Action atorvastatin 80 mg Tablet 80 mg PO QHS clopidogrel [Plavix] 75 mg Tablet 75 mg PO DAILY tamsulosin [Flomax] 0.4 mg Capsule 0.4 mg PO DAILY metoprolol tartrate 50 mg Tablet 50 mg PO BID Eliquis 5 mg Tablet 5 mg PO BID doxazosin 1 mg tablet 1 mg PO QHS sennosides-docusate sodium [Stool Softener-Stimulant Laxat] 8.6-50 mg tablet 1 tab PO QHS pantoprazole 40 mg tablet,delayed release (DR/EC) 40 mg PO DAILY menthol-zinc oxide [Calmoseptine] 0.44-20.6 % ointment 1 applic topical BID@0600,2200 Protocol: *Topical Application Instructions APPLICATION INSTRUCTIONS: apply to buttocks and coccyx acetaminophen 500 mg Tablet 1,000 mg PO Q8 Qty: 0 0RF magnesium hydroxide [Dulcolax (magnesium hydroxide)] 400 mg/5 mL suspension 30 ml PO DAILY PRN (Reason: constipation) multivitamin [Daily Multi-Vitamin] Tablet 1 tab PO DAILY cholecalciferol (vitamin D3) [D3 DOTS] 50 mcg (2,000 unit) tablet 2,000 unit PO DAILY vitamin B complex [Balanced B-50] Tablet 1 tab PO DAILY acetaminophen [Aminofen] 325 mg tablet 650 mg PO Q4H PRN (Reason: fever or pain) magnesium hydroxide 400 mg/5 mL Suspension 30 ml PO PRN PRN (Reason: Constipation) bisacodyl 10 mg Suppository 10 mg IA PRN PRN (Reason: Constipation) loperamide [Anti-Diarrheal (loperamide)] 2 mg capsule 2 mg PO Q6H PRN (Reason: loose stool) tizanidine 4 mg tablet 4 mg PO QHS sertraline 25 mg tablet 25 mg PO DAILY nystatin 100,000 unit/gram powder 1 applic topical Q8H Primary Care Provider: Eligio Contreras Referrals: Eligio Contreras MD [Primary Care Provider] - Darwin Shields MD [Med Staff - Active Staff] - 1-2 Weeks Activity Restrictions/Additional Instructions: CT angiogram head and neck stable. No new findings. Patent stent left carotid. Labs stable. Urine negative for infection. Chest x-ray negative. Follow-up with cardiology as you requested. Continue home medications. Print Language: Yakut Disposition Disposition: Home, Self Care
[2024-12-26 21:00] VITALS: BP 105/70; PULSE 51; RESP 17; O2SAT 97
[2024-12-26 21:01] LABS: Hematocrit 37.1 % (40-54); Hemoglobin 12.3 g/dL (13.0-16.5); Immature Granulocytes Count 0.020 X10^3/uL (0.0-0.0); Mean Corp Hgb Conc 33.2 g/dL (32-36); Mean Corpuscular Volume 91.2 fL (80-94); Mean Platelet Vol. 10.4 fl (6.2-12.0); NRBC Flagged by Analyzer 0 % (0-5); Platelet Count 222 K/mm3 (150-450); RBC Distribution Width CV 14.6 % (11.6-14.6); RBC Distribution Width SD 49.1 fl (35.1-43.9); Red Blood Count 4.07 M/mm3 (4.6-6.2); White Blood Count 5.4 K/mm3 (4.4-11.0)
--- OUTSIDE RECORDS SUMMARY | 2024-12-26 21:04 | XMS RPT_ITS | CCD ---
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 Name Role Phone Unavailable Primary Care Provider UnavailJENELLE Dalal Attending Unavailable JENELLE MONTEMAYOR Referring Unavailable JENELLE MONTEMAYOR Primary Care Unavailable JENELLE MONTEMAYOR Attending Unavailable JENELLE MONTEMAYOR Referring Unavailable JENELLE MONTEMAYOR Primary Care Unavailable JENELLE MONTEMAYOR Attending Unavailable JENELLE MONTEMAYOR Referring Unavailable JENELLE MONTEMAYOR Primary Care Unavailable Marti, Palak Primary Care Unavailable Marti, Palak Referring Unavailable Marti, Palak Attending Unavailable Marti, Palak Primary Care Unavailable Marti, Palak Referring Unavailable Marti, Palak Attending Unavailable Marti, Palak Referring Unavailable Marti, Palak Attending Unavailable Marti, Palak Primary Care Unavailable Unavailable Primary Care Provider UnavailPalak Cast Primary Care Provider [phone] Palak Mcgee Primary Care Provider [phone] MARTI, PALAK M Attending Unavailable MARTI, PALAK M Primary Care Unavailable MARTI, PALAK M Referring Unavailable MARTI, PALAK M Primary Care Unavailable MARTI, PALAK M Attending Unavailable MARTI, PALAK M Primary Care Unavailable MARTI, PALAK M Referring Unavailable MARTI, PALAK M Primary Care Unavailable MARTI, PALAK M Referring Unavailable MARTI, PALAK M Primary Care Unavailable MARTI, PALAK M Attending Unavailable MARTI, PALAK M Primary Care Unavailable MARTI, PALAK M Attending Unavailable MARTI, PALAK M Primary Care Unavailable MARTI, PALAK M Referring Unavailable MARTI, PALAK M Primary Care Unavailable MARTI, PALAK M Attending Unavailable MARTI, PALAK M Primary Care Unavailable MARTI, PALAK M Attending Unavailable MARTI, PALAK M Primary Care Unavailable IDOINE III, CARSON D Attending Unavailable IDOINE IIICARSON Attending Unavailable IDOPRETTY IIICARSON Attending Unavailable CARSON BULLOCK III Attending Unavailable CARSON BULLOCK III Attending Unavailable Dr. Lucien Gramajo Chi Admit Provider Avila Dr. Lucien Tinoco Other Provider Friend, Dr. Blair Attending Provider Friend, Dr. Blair Other Provider Sementi, Dr. Janneth Salgado Referring Provider Sementi, Dr. Janneth Salgado Attending Provider Sementi, Dr. Janneth Salgado Other Provider Melissa SOCIETY REPORTER, SOCIETY REPORTER-C Angelika Attending Provider Unav ailable Sementi, Dr. Janneth Salgado Admit Provider AN LEE Attending Unavailab le MARTI, PALAK M Referring Unavailable MARTI, PALAK M Primary Care Unavailable BELKIS NAM Attending Unavailable IDOINE III, CARSON RODRIGUEZ Referring Unavail able AMALIA KIDDIKA M Primary Care Unavailable IDOINE III, CARSON RODRIGUEZ Attending Unavail able IDOINE III, CARSON RODRIGUEZ Referring Unavail able AMALIA KIDDIKA M Primary Care Unavailable IDOINE III, CARSON RODRIGUEZ Attending Unavail able AN LEE Referring Unavailab le IDOINE III, CARSON RODRIGUEZ Attending Unavail able Palak Mcgee Primary Care Provider DORA YEBOAH Admitting Unavailable DIAZ APONTE Consulting Unavai PALAK Moreno M Primary Care Unavailable FAISAL CREWS Attending Unavailable Palak Mcgee Primary Care Provider Dr. Eligio Contreras MD Primary Care Provider [phone] Dr. Jayden Sanchez DO Emergency Provider Dr. An Cassidy DO Admit Provider Unavail able Dr. An Cassidy DO Other Provider Unavail able Dr. Merary Wong DO Attending Provider Dr. Merary Wong DO Other Provider [phone] Eligio Contreras Primary Care Unavailable An Cassidy Admitting Unavailable An Cassidy Consulting Unavailable An Cassidy Attending Unavailable Merary Wong Consulting Unavailable Merary Wong Attending Unavailable Merary Wong Consulting Unavailable Merary Wong Attending Unavailable Eligio Contreras Primary Care Unavailable An Cassidy Admitting Unavailable An Cassidy Consulting Unavailable Medications Current Medications Medication Drug Class(es) Dates Sig (Normalized) Sig (Original) acetaminophen 500 mg oral tablet (8 sources) Start: 05-02-2022 take 2 tablets by mouth every eight hours Acetaminophen 500 mg Tablet Active 1000 mg PO EVERY 8 HOURS 0 May 02, 2022 1:00am Start: 05-02-2022 take 1000 mg by mout h every eight hours Acetaminophen Active 1000 MG PO EVERY 8 HOURS 0 May 02, 2022 12:00am Start: 02-19-2022 End: 05-02-2022 take 2 tablets by mouth every four hours as needed for pain Acetaminophen (Tylenol) 325 mg Tablet Discontinued 650 mg PO Q4H as needed for Pain February 19, 2022 12:00am May 02, 2022 3:39pm Comment on above: 2 tablets by ORAL/FE EDING TUBE route every 4 hours as needed for pain. apixaban 5 mg oral tablet (19 sources) Factor Xa Inhibitor Start: 12-08-2021 take 1 tablet by mouth twice daily Apixaban (Eliquis) 5 mg Tablet Active 5 mg PO TWICE A DAY February 19, 2022 12:00am Comment on above: Take 5 mg by mouth t wice daily. Arthritis Pain Compound (2 sources) Start: 05-02-2022 Arthritis Pain Compound Active 0 NMA topical TWICE A DAY 0 May 02, 2022 1:00am Start: 05-02-2022 Arthritis Pain Compound Active 0 CLICK topical TWICE A DAY 0 May 02, 2022 12:00am atorvastatin 80 mg oral tablet (6 sources) HMG-CoA Reductase Inhibitor Start: 02-19-2022 take 1 tablet by mouth at bedtime Atorvastatin 80 mg Tablet Active 80 mg PO AT BEDTIME February 19, 2022 12:00am Comment on above: 1 tablet by ORAL/FEE DING TUBE route daily at bedtime. bisacodyl 10 mg rectal suppository (2 sources) Stimulant Laxative Start: 05-02-2022 Bisacodyl 10 mg Suppository Active 10 mg RC .PRN X 1 as needed for Constipation 0 May 02, 2022 1:00am Start: 05-02-2022 Bisacodyl Acti ve 10 MG RC .PRN X 1 0 May 02, 2022 12:00am clopidogrel 75 mg oral tablet (6 sources) [id number] Platelet Inhibitor Start: 02-19-2022 take 1 tablet by mouth once daily Clopidogrel (Plavix) 75 mg Tablet Active 75 mg PO DAILY February 19, 2022 12:00am Comment on above: 1 tablet by ORAL/FEE DING TUBE route once daily. docusate sodium 50 mg / sennosides, longterm 8.6 mg oral tablet (4 sources) Start: 04-12-2022 Sennosides-Doc usat e Sodium (Stool Softener-Stimulant Laxat) 8.6-50 mg tablet Active 1 {tbl} PO AT BEDTIME April 12, 2022 1:30pm Start: 03-13-2022 End: 04-12-2022 Sennosides-Docusate Sodium ( Stool Softener-Stimulant Laxat) 8.6-50 mg Tablet Discontinued 2 {tbl} PO TWICE A DAY as needed for Constipation 0 March 13, 2022 12:00am April 12, 2022 1:17pm doxazosin 1 mg oral tablet (4 sources) alpha-Adrenergic Lorraine Start: 03-13-2022 End: 04-12-2022 take 1 tablet by mouth at bedtime Doxazosin 1 mg tablet Active 1 mg PO AT BEDTIME April 12, 2022 1:17pm Food Supplemt, Lactose-Reduced (Ensure Plus High Protein) 0.08 gram-1.5 kcal/mL Liquid (2 sources) Start: 05-02-2022 Food Supplemt, Lactose-Reduced (Ensure Plus High Protein) 0.08 gram-1.5 kcal/mL Liquid Active 120 mL PO 4 TIMES DAILY 0 May 02, 2022 1:00am Start: 05-02-2022 Food Supplemt, Lactose-Reduced (Ensure Plus High Protein) 0.08 gram-1.5 kcal/mL Liquid Active 120 ML PO 4 TIMES DAILY 0 May 02, 2022 12:00am 12 hr guaiFENesin 1200 mg extended release oral tablet (1 source) Start: 09-02-2024 Guaifenesin (M ucus Relief Er) 1,200 mg Tablet Extended Release 12hr Active 1200 mg PO TWICE A DAY September 02, 2024 12:00am Take for the next 7 days loperamide hydrochloride 2 mg oral capsule (1 source) Opioid Agonist Start: 08-31-2024 take 1 capsule by mouth every six hours as needed Loperamide (Anti-Diarrheal (Loperamide)) 2 mg capsule Active 2 mg PO EVERY 6 HOURS as needed for loose stool August 31, 2024 12:00am Magnesium Hydroxide (2 sources) Start: 05-02-2022 Magnesium Hydr oxide 400 mg/5 mL Suspension Active 30 mL PO .PRN X 1 as needed for Constipation 0 May 02, 2022 1:00am Start: 05-02-2022 Magnesium Hydr oxide Active 30 ML PO .PRN X 1 0 May 02, 2022 12:00am Menthol / Zinc Oxide (4 sources) Start: 04-12-2022 Menthol-Zinc O xide (Calmoseptine) 0.44-20.6 % ointment Active 1 NMA TOPICAL BID@0600,2200 April 12, 2022 1:17pm Please contact the information source for Protocol details. Start: 04-12-2022 Menthol-Zinc O xide (Calmoseptine) 0.44-20.6 % ointment Active 1 APPLIC TOPICAL BID@0600,0 April 12, 2022 12:17pm Start: 03-13-2022 End: 04-12-2022 Menthol-Zinc Oxide (Calmosep travis) 0.44-20.6 % Ointment Discontinued 1 NMA TOPICAL BID@0600,2200 0 March 13, 2022 12:00am April 12, 2022 1:17pm Please contact the information source for Protocol details. Start: 03-13-2022 End: 04-12-2022 Menthol-Zinc Oxide (Calmosep travis) 0.44-20.6 % Ointment Discontinued 1 APPLIC TOPICAL BID@0600,2200 0 March 12, 2022 11:00pm April 12, 2022 12:17pm nystatin 100 unt/mg topical powder (1 source) Polyene Antifungal Start: 08-31-2024 Nystatin 100,000 unit/gram powder Active TOPICAL August 31, 2024 12:00am oxymetazoline hydrochloride 0.5 mg/ml nasal spray (2 sources) Start: 05-02-2022 Oxymetazoline (Afrin (Oxymetazoline)) 0.05 % spray,non-aerosol Active 2 NMA INTRANASAL Q12H as needed for epistaxis 15 3 May 02, 2022 1:00am pantoprazole 40 mg delayed release oral tablet (4 sources) Proton Pump Inhibitor Start: 03-13-2022 End: 04-12-2022 take 1 tablet by mouth twice daily Pantoprazole 40 mg tablet,delayed release (DR/EC) Active 40 mg PO TWICE A DAY April 12, 2022 1:17pm predniSONE 10 mg oral tablet (1 source) Start: 09-02-2024 Prednisone 10 mg tablet Active 10 mg PO DAILY 40 September 02, 2024 12:00am 4 tablets x 4 days, 3 tablets x 4 days, 2 tablets x 4 days, 1 tablet x 4 days then stop sertraline 25 mg oral tablet (1 source) Serotonin Reuptake Inhibitor Start: 08-31-2024 take 1 tablet by mouth once daily Sertraline 25 mg tablet Active 25 mg PO DAILY August 31, 2024 12:00am sodium chloride 0.111 meq/ml nasal spray (2 sources) Start: 05-02-2022 Sodium Chlorid e ([place] Nasal) 0.65 % Aerosol,[place] Active 1 NMA NASAL BEFORE MEALS AND AT BEDTIME 0 May 02, 2022 1:00am Start: 05-02-2022 Sodium Chlorid e ([place] Nasal) 0.65 % Aerosol,[place] Active 1 SPRAY NASAL BEFORE MEALS AND AT BEDTIME 0 May 02, 2022 12:00am tamsulosin hydrochloride 0.4 mg oral capsule (6 sources) alpha-Adrenergic Lorraine Start: 02-19-2022 take 1 capsule by mouth once daily Tamsulosin (Flomax) 0.4 mg Capsule Active 0.4 mg PO DAILY February 19, 2022 12:00am Comment on above: Take 1 capsule by [facility] once daily. tiZANidine 4 mg oral tablet (1 source) Central alpha-2 Adrenergic Agonist Start: 08-31-2024 take 1 tablet by mouth at bedtime Tizanidine 4 mg tablet Active 4 mg PO AT BEDTIME August 31, 2024 12:00am Vit A-Vit C-Vit W-Apff-Iptkqv (1 source) Start: 02-19-2022 take 1 tablet by mouth once daily Vit A-Vit C-Vit Z-Bkzm-Hzaiqy Active 1 TABLET PO DAILY February 18, 2022 11:00pm Vit A-Vit C-Vit M-Owau-Iqryzz 7,160-113-100 snsv-zh-ixsg Tablet (1 source) Start: 02-19-2022 Vit A-Vit C-Vit X-Tiie-Lzkdcp 7,160-113-100 gdra-jl-nmtu Tablet Active 1 {tbl} PO DAILY February 19, 2022 12:00am Completed/Discontinued Medications Medication Drug Class(es) Dates Sig (Normalized) Sig (Original) ascorbic acid 1000 mg extended release oral tablet (13 sources) Vitamin C take 1 tablet by mouth twice daily Ascorbic Acid 1,000 mg TbER Take 1 tablet by mouth twice daily. 0 Suspended Comment on above: Take by mouth. Take 1 tablet by slade twice daily. azithromycin 250 mg oral tablet (1 source) Macrolide Antimicrobial Start: 08-31-2024 End: 09-02-2024 take 1 tablet by mouth once daily Azithromycin (Zithromax) 250 mg tablet Discontinued 250 mg PO DAILY August 31, 2024 12:00am September 02, 2024 10:55am take for 4 days cartilage/collagen/b or/hyalur (JOINT HEALTH ORAL) (1 source) take 1 capsule by mouth twice daily cartilage/collagen/b or/hyalur (JOINT HEALTH ORAL) Take 1 capsule by mouth twice daily. Beneflex Plus 0 Suspended Comment on above: Take 1 capsule by [facility] twice daily. Beneflex Plus cholecalciferol 0.025 mg oral tablet (13 sources) Vitamin D take 1 tablet by mouth twice daily cholecalciferol (VITAMIN D3) 1,000 unit tab tablet Take 1,000 Units by mouth twice daily. 0 Suspended cholecalciferol (VITAMIN D3) 1,000 unit tab tablet Take by mouth. 0 Suspended Comment on above: Take by mouth. Take 1,000 Units by mouth twice daily. Cholesterol Control,High & Low soln (1 source) Cholesterol Control,High & Low soln 1 capsule once daily. 0 Suspended Comment on above: 1 capsule once daily . coenzyme Q63-A-[id number]-rxt E (HEALTHY HEART FORMULA ORAL) (1 source) take 3 capsules by mouth twice daily coenzyme [id number]-[id number] E (HEALTHY HEART FORMULA ORAL) Take 3 capsules by mouth twice daily. Elation Reservatrol 0 Suspended Comment on above: Take 3 capsules by out twice daily. Elation Reservatrol homeopathic drugs (CIRCULATION ORAL) (1 source) take 1 capsule by mouth once daily homeopathic drugs (CIRCULATION ORAL) Take 1 capsule by mouth once daily. Fermented beet/tracy 0 Suspended Comment on above: Take 1 capsule by [facility] once daily. Fermented beet/tracy magnesium carb,citrate,oxide (MAGNESIUM COMPLEX ORAL) (1 source) take 2 capsules by mouth twice daily magnesium carb,citrate,oxide (MAGNESIUM COMPLEX ORAL) Take 2 capsules by mouth twice daily. 0 Suspended Comment on above: Take [address] [facility] twice daily. metoprolol tartrate 50 mg oral tablet (19 sources) beta-Adrenergic Lorraine Start: 2 take 1 tablet by mouth every twelve hours metoprolol tartrate, short acting, (LOPRESSOR) 50 mg tablet 1 tablet by ORAL/FEEDING TUBE route every 12 hours. 0 02/19/2022 Active Start: 02-19-2022 take 1 tablet by slade twice daily Metoprolol Tartrate 50 mg Tablet Active 50 mg PO TWICE A DAY February 19, 2022 12:00am Start: 12-04-2021 take 1 tablet by slade every twenty-four hours metoprolol succinate ER (TOPROL XL) 50 mg 24 hr tablet Take 50 mg by mouth. 0 12/04/2021 Suspended Comment on above: Take 50 mg by mouth. 1 tablet by ORAL/FEE DING TUBE route every 12 hours. MULTIVITAMIN ORAL (1 source) MULTIVITAMIN ORA L Take by mouth as directed. 0 Suspended Comment on above: Take by mouth as dir ected. mv-min/FA/D3/om-3/dha/ epa/fish (ADULT MULTI PLUS OMEGA-3 ORAL) (1 source) take 1 capsule by mouth once daily mv-min/FA/D3/om-3/dha /epa/fish (ADULT MULTI PLUS OMEGA-3 ORAL) Take 1 capsule by mouth once daily. omega Q Plus 0 Suspended Comment on above: Take 1 capsule by [facility] once daily. omega Q Plus potassium chloride 20 meq powder for oral solution (5 sources) Start: 2 take 40 mEq by mouth once daily potassium chloride (KLOR-CON) 20 mEq packet Take 40 mEq by mouth once daily. 0 02/19/2022 Active Start: 02-19-2022 End: 03-13-2022 take 40 mEq by mouth once daily Potassium Chloride Discontinued 40 MEQ PO DAILY February 18, 2022 11:00pm March 13, 2022 10:37am Comment on above: Take 40 mEq by mouth once daily. Potassium Chloride 25 mEq Packet (1 source) Start: 2 End: 2 take 40 mEq by mouth once daily Potassium Chloride 25 mEq Packet Discontinued 40 meq PO DAILY February 19, 2022 12:00am March 13, 2022 11:37am saccharomyces boulardii 250 mg oral capsule (1 source) take 1 capsule by mouth once daily Saccharomyces boulardii (PROBIOTIC, S.BOULARDII,) 250 mg capsule Take 250 mg by mouth once daily. 0 Suspended Comment on above: Take 250 mg by mouth once daily. saw/vit E/sod yael/lyc/beta/pyg (PROSTATE HEALTH ORAL) (1 source) take 1 capsule by mouth twice daily saw/vit E/sod yael/lyc/beta/pyg (PROSTATE HEALTH ORAL) Take 1 capsule by mouth twice daily. Super Healthy 0 Suspended Comment on above: Take 1 capsule by mo uth twice daily. Super Healthy THYROID ORAL (1 source) take 1 capsule by mouth twice daily THYROID ORAL Take 1 capsule by mouth twice daily. Thyroid Support 0 Suspended Comment on above: Take 1 capsule by mo uth twice daily. Thyroid Support vit A/C/E ac/ZnOx/cupric oxide (EYE VITAMIN AND MINERALS ORAL) (5 sources) take 1 capsule by mouth once daily before mealtime vit A/C/E ac/ZnOx/cupric oxide (EYE VITAMIN AND MINERALS ORAL) Take 1 capsule by mouth once daily. Vision Essential 0 Active take 1 capsule by mo uth once daily before mealtime vit A/C/E ac/ZnOx/cupric oxide (EYE JUANIS MIN AND MINERALS ORAL) Take 1 capsule by mouth once daily. Vision Essential 0 Suspended Comment on above: Take 1 capsule by mo uth once daily. Vision Essential Problems Active Problems Problem Classification Problem Date Documented Da te Episodic/Chronic Acute bronchitis (3 sources) Acute respiratory syncytial virus bronchitis; Translations: [Acute bronchitis due to respiratory syncytial virus] Onset: 09-02-2024 08-31-2024 Episodic Acute cerebrovascular disease (13 sources) Ischemic stroke; Translations: [Cerebral infarction due to unspecified occlusion or stenosis of left carotid arteries] Onset: 02-07-2022 Chronic Allergic reactions (3 sources) Diaper rash; Translations: [Diaper dermatitis] Episodic Cardiac dysrhythmias (10 sources) Unspecified atrial fibrillation; Translations: [Atrial flutter] Onset: 08-20-2021 02-07-2022 Chronic Deficiency and other anemia (2 sources) Normocytic normochromic anemia; Translations: [Anemia, unspecified] 05-02-2022 Episodic Comment on above: HGB is stable at 12. 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 Diabetes mellitus with complications (1 source) Secondary diabetes mellitus; Translations: [Diabetes mellitus due to underlying condition with hyperglycemia] Chronic Diabetes mellitus without complication (6 sources) Type 2 diabetes mellitus without complication; Translations: [Type 2 diabetes mellitus without complications] Onset: 02-07-2022 02-07-2022 Chronic Diseases of white blood cells (3 sources) Leukopenia; Translations: [Decreased white blood cell count, unspecified] Chronic Disorders of lipid metabolism (9 sources) Pure hypercholesterolemia, unspecified; Translations: [Hyperlipidemia] Onset: 08-28-2021 02-07-2022 Chronic Esophageal disorders (17 sources) Gastro-esophageal reflux disease with esophagitis; Translations: [Gastroesophageal reflux disease with esophagitis] Chronic Comment on above: Continue Protonix 40 mg p.o. twice daily and follow-up with Dr. Garcia in May. Essential hypertension (9 sources) Essential (primary) hypertension; Translations: [Hypertensive disorder] Onset: 08-20-2021 02-07-2022 Chronic Fluid and electrolyte disorders (4 sources) Hypo-osmolality and hyponatremia; Translations: [Hypokalemia] Onset: 09-13-2021 Episodic Genitourinary symptoms and ill-defined conditions (4 sources) Urinary incontinence; Translations: [Unspecified urinary incontinence] Chronic Comment on above: Persistent urinary i ncontinence with no urine retention on postvoid residuals. Genitourinary symptoms and ill-defined conditions (4 sources) Retention of urine; Translations: [Retention of urine, unspecified] Episodic Comment on above: PVR's are all less t rios 200 at the time of DC. 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 Occlusion or stenosis of precerebral arteries (9 sources) Occlusion and stenosis of unspecified carotid artery; Translations: [Left carotid artery occlusion] Onset: 08-29-2021 02-07-2022 Chronic Osteoarthritis (7 sources) Bilateral shoulder osteoarthritis; Translations: [Primary osteoarthritis, right shoulder] Onset: 12-17-2021 Chronic Other aftercare (1 source) Follow-up status; Translations: [Encounter for other orthopedic aftercare] Episodic Other aftercare (2 sources) Drug therapy finding; Translations: [retirement (current) use of anticoagulants] 08-31-2024 Episodic Other aftercare (1 source) 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; Translations: [retirement (current) use of anticoagulants] Onset: 09-02-2024 Episodic Other circulatory disease (2 sources) H/O: atrial fibrillation; Translations: [Personal history of other diseases of the circulatory system] 09-01-2024 Episodic Other circulatory disease (1 source) Personal history of other diseases of the circulatory system; Translations: [Personal history of other diseases of the circulatory system] Onset: 09-02-2024 Episodic Other connective tissue disease (7 sources) History of reverse prosthetic total arthroplasty of left shoulder; Translations: [Presence of left artificial shoulder joint] Onset: 02-07-2022 02-07-2022 Chronic Other connective tissue disease (2 sources) Presence of left artificial shoulder joint; Translations: [Shoulder joint replacement] Chronic Other gastrointestinal disorders (2 sources) Dysphagia; Translations: [Dysphagia, unspecified] 02-21-2022 Episodic Other gastrointestinal disorders (2 sources) Incontinence of feces; Translations: [Full incontinence of feces] 03-22-2022 Episodic Other gastrointestinal disorders (2 sources) Dysphagia, unspecified; Translations: [Dysphagia, unspecified] Episodic Other gastrointestinal disorders (1 source) Full incontinence of feces; Translations: [Full incontinence of feces] Episodic Other injuries and conditions due to external causes (2 sources) Unspecified injury of muscle, fascia and tendon of long head of biceps, left arm, initial encounter; Translations: [Shoulder and upper arm injury] Episodic Other lower respiratory disease (2 sources) Respiratory insufficiency; Translations: [Other abnormalities of breathing] 09-01-2024 Episodic Other lower respiratory disease (2 sources) Hypoxia; Translations: [Hypoxemia] 09-01-2024 Episodic Other lower respiratory disease (1 source) Other abnormalities of breathing; Translations: [Other abnormalities of breathing] Onset: 09-02-2024 Episodic Other lower respiratory disease (1 source) Shortness of breath; Translations: [Shortness of breath] Onset: 09-20-2024 Episodic Other lower respiratory disease (1 source) Hypoxemia; Translations: [Hypoxemia] Onset: 09-02-2024 Episodic Other nervous system disorders (1 source) Other chronic pain; Translations: [Chronic pain of both shoulders] Onset: 12-17-2021 Chronic Other non-traumatic joint disorders (1 source) Bilateral chronic pain of upper limbs; Translations: [Pain in right shoulder] Episodic Other non-traumatic joint disorders (1 source) Chronic pain of left upper limb; Translations: [Pain in left shoulder] Episodic Other non-traumatic joint disorders (1 source) Pain in unspecified shoulder; Translations: [Pain in unspecified shoulder] Onset: 12-04-2021 Episodic Other nutritional; endocrine; and metabolic disorders (2 sources) Body mass index 30+ - obesity; Translations: [Obesity, unspecified] 09-01-2024 Chronic Other nutritional; endocrine; and metabolic disorders (1 source) Obesity, unspecified; Translations: [Obesity, unspecified] Onset: 09-02-2024 Chronic Other upper respiratory disease (2 sources) Bleeding from nose; Translations: [Epistaxis] 05-12-2022 Episodic Comment on above: resolved Other upper respiratory disease (1 source) Epistaxis; Translations: [Epistaxis] Episodic Other upper respiratory disease (2 sources) Acute bronchospasm; Translations: [Acute bronchospasm] 08-31-2024 Episodic Other upper respiratory disease (1 source) Acute bronchospasm; Translations: [Acute bronchospasm] Onset: 09-02-2024 Episodic Paralysis (6 sources) Right hemiplegia; Translations: [Hemiplegia, unspecified affecting right dominant side] Onset: 09-02-2024 Chronic Residual codes; unclassified (2 sources) Past history of procedure; Translations: [Other specified postprocedural states] 03-22-2022 Episodic Residual codes; unclassified (2 sources) Insomnia; Translations: [Insomnia, unspecified] 05-12-2022 Episodic Residual codes; unclassified (1 source) Insomnia, unspecified; Translations: [Insomnia, unspecified] Episodic Viral infection (3 sources) Respiratory syncytial virus infection; Translations: [Other specified viral diseases] Onset: 09-02-2024 09-01-2024 Episodic Past or Other Problems Problem Classification Problem Date Documented Da te Episodic/Chronic Other circulatory disease (6 sources) History of atrial flutter; Translations: [Personal history of other diseases of the circulatory system] Onset: 02-07-2022 02-07-2022 Episodic Other connective tissue disease (1 source) Other specified soft tissue disorders; Translations: [Other specified soft tissue disorders] Onset: 08-20-2021 Episodic Other infections; including parasitic (1 source) Personal history of other infectious and parasitic diseases; Translations: [Personal history of other infectious and parasitic diseases] Onset: 09-27-2021 Episodic Other non-traumatic joint disorders (1 source) Pain in unspecified joint; Translations: [Pain in unspecified joint] Onset: 09-27-2021 Episodic Other non-traumatic joint disorders (1 source) Pain in right shoulder; Translations: [Chronic pain of both shoulders] Onset: 12-17-2021 Episodic Other non-traumatic joint disorders (1 source) Pain in left shoulder; Translations: [Chronic pain of both shoulders] Onset: 12-17-2021 Episodic Residual codes; unclassified (1 source) Edema, unspecified; Translations: [Edema, unspecified] Onset: 09-13-2021 Episodic Skin and subcutaneous tissue infections (1 source) Cellulitis, unspecified; Translations: [Cellulitis, unspecified] Onset: 08-20-2021 Episodic Unclassified (1 source) PRE OP VISIT LEFT SHOULDER 02-06-22 Onset: 01-24-2022 Results Test Name Value Interpretation Reference Range Facility Phosphoruson 09-02-2024 Phosphate [Mass/Vol] 2.4 mg/dL Low 2.7-4.[address] [facility] Comment on above: Performed By: #### L 501.2300 #### [facility] [address] [place], [address] Serum phosphorus measurement Ordered By: An Multani on 09-02-2024 Phosphorus Level 2.4 mg/dL Low 2.7-4.5 [facility] Absolute neutrophil countOrd ered By: An Multani on 09-01-2024 Neutrophils (Bld) [#/Vol] 5.7 10*3/uL 2.0-7.7 [facility] Anion gap in Serum or Plasma Ordered By: An Multani on 09-01-2024 Anion gap [Moles/Vol] 12 mmol/L 5- [facility] BUN/creatinine ratioOrdered By: An Multani on 09-01-2024 Urea nitrogen/Creatinine [Mass ratio] 18.2 mg/mg 10- [facility] Basophil percentageOrdered B y: An Multani on 09-01-2024 Basophils/100 WBC (Bld) 0.0 % 0-1 [facility] Bilirubin, totalOrdered By: An Multani on 09-01-2024 Bilirubin [Mass/Vol] 0.54 mg/dL 0.00-1.30 [facility] CBC W/Diff, Automatedon 08-11 Absolute Lymph 0.51 X10 3/uL Low 0.83-4.51 [facility] Comment on above: Performed By: #### L 501.2300, L500.4050, L100.0100 #### [facility] [address] [place], [address] Absolute Neut 5.7 X10 3/uL Normal 2.0-7.7 [facility] Comment on above: Performed By: #### L 501.2300, L500.4050, L100.0100 #### [facility] [address] [place], [address] Basophils/100 WBC (Bld) 0.0 % Normal 0-1 [facility] Comment on above: Performed By: #### L 501.2300, L500.4050, L100.0100 #### [facility] [address] [place], [address] Eosinophils/100 WBC (Bld) 0.2 % Normal 0-5 [facility] Comment on above: Performed By: #### L 501.2300, L500.4050, L100.0100 #### [facility] [address] [place], [address] Erythrocyte distribution width (RBC) [Ratio] 14.6 % Normal 11.6-14.6 [facility] Comment on above: Performed By: #### L 501.2300, L500.4050, L100.0100 #### [facility] [address] [place], [address] Hematocrit (Bld) [Volume fraction] 38.9 % Low 40-54 [facility] Comment on above: Performed By: #### L 501.2300, L500.4050, L100.0100 #### [facility] [address] [place], [address] Hemoglobin (Bld) [Mass/Vol] 12.8 g/dL Low 13.0-16.5 [facility] Comment on above: Performed By: #### L 501.2300, L500.4050, L100.0100 #### [facility] [address] [place], [address] IG% 0.500 Normal 0.0-0.9 [facility] Comment on above: Result Comment: IG% - Immature Granulocytes (promyelocytes, myelocytes and metamyelocytes) > 1% indicates that a LEFT SHIFT is Present. Performed By: #### L 501.2300, L500.4050, L100.0100 #### [facility] [address] [place], [address] Lymphocytes/100 WBC (Bld) 8.0 % Low 19-41 [facility] Comment on above: Performed By: #### L 501.2300, L500.4050, L100.0100 #### [facility] [address] [place], [address] MCH (RBC) [Entitic mass] 30.3 pg Normal 27.0-32.0 [facility] Comment on above: Performed By: #### L 501.2300, L500.4050, L100.0100 #### [facility] [address] [place], [address] MCHC (RBC) [Mass/Vol] 32.9 g/dL Normal 32-36 [facility] Comment on above: Performed By: #### L 501.2300, L500.4050, L100.0100 #### [facility] [address] [place], [address] MCV (RBC) [Entitic vol] 92.2 fL Normal 80-94 [facility] Comment on above: Performed By: #### L 501.2300, L500.4050, L100.0100 #### [facility] [address] [place], [address] Monocytes/100 WBC (Bld) 1.7 % Normal 0-10 [facility] Comment on above: Performed By: #### L 501.2300, L500.4050, L100.0100 #### [facility] [address] [place], [address] Neutrophils/100 WBC (Bld) 89.6 % High 47-70 [facility] Comment on above: Performed By: #### L 501.2300, L500.4050, L100.0100 #### [facility] [address] [place], [address] Nucleated RBC (Bld) [#/Vol] 0 10*3/uL Normal 0-5 [facility] Comment on above: Performed By: #### L 501.2300, L500.4050, L100.0100 #### [facility] [address] [place], [address] Platelet mean volume (Bld) [Entitic vol] 10.1 fL Normal 6.2-12.0 [facility] Comment on above: Performed By: #### L 501.2300, L500.4050, L100.0100 #### [facility] [address] [place], [address] Platelets (Bld) [#/Vol] 195 10*3/uL Normal 150-450 [facility] Comment on above: Performed By: #### L 501.2300, L500.4050, L100.0100 #### [facility] [address] [place], [address] RBC (Bld) [#/Vol] 4.22 10*6/uL Low 4.6-6.2 [facility] Comment on above: Performed By: #### L 501.2300, L500.4050, L100.0100 #### [facility] [address] [place], [address] RDW SD 49.1 fl High 35.1-43.9 [facility] Comment on above: Performed By: #### L 501.2300, L500.4050, L100.0100 #### [facility] [address] [place], [address] WBC (Bld) [#/Vol] 6.3 10*3/uL Normal 4.4-11.0 [facility] Comment on above: Performed By: #### L 501.2300, L500.4050, L100.0100 #### [facility] [address] [place], [address] Carbon dioxide, total [Moles /volume] in Central venous bloodOrdered By: An Multani on 09-01-2024 CO2 [Moles/Vol] 19.5 mmol/L Low 21.0-32.0 [facility] Chloride assayOrdered By: Rocael Multani on 09-01-2024 Chloride [Moles/Vol] 103 mmol/L 98-108 [facility] Comprehensive Metabolic Prof ilon 09-01-2024 Albumin [Mass/Vol] 3.4 g/dL Normal 3.4-4.8 [facility] Comment on above: Performed By: #### L 501.2300, L500.4050, L100.0100 #### [facility] [address] [place], [address] Albumin/Globulin [Mass ratio] 1.3 {ratio} Normal 0.9-2.4 [facility] Comment on above: Performed By: #### L 501.2300, L500.4050, L100.0100 #### [facility] [address] [place], [address] ALK PHOS 93 U/L Normal 40-129 [facility] Comment on above: Performed By: #### L 501.2300, L500.4050, L100.0100 #### [facility] [address] [place], [address] ALT [Catalytic activity/Vol] 25 U/L Normal <=46 [facility] Comment on above: Performed By: #### L 501.2300, L500.4050, L100.0100 #### [facility] [address] [place], [address] AST [Catalytic activity/Vol] 24 U/L Normal <=37 [facility] Comment on above: Performed By: #### L 501.2300, L500.4050, L100.0100 #### [facility] [address] [place], [address] Bilirubin [Mass/Vol] 0.54 mg/dL Normal 0.00-1.30 [facility] Comment on above: Performed By: #### L 501.2300, L500.4050, L100.0100 #### [facility] [address] [place], [address] BUN/CRE 18.2 RATIO Normal 10-20 [facility] Comment on above: Performed By: #### L 501.2300, L500.4050, L100.0100 #### [facility] [address] [place], [address] Calcium [Mass/Vol] 8.7 mg/dL Normal 7.6-11.0 [facility] Comment on above: Performed By: #### L 501.2300, L500.4050, L100.0100 #### [facility] [address] [place], [address] Chloride [Moles/Vol] 103 mmol/L Normal 98-108 [facility] Comment on above: Performed By: #### L 501.2300, L500.4050, L100.0100 #### [facility] [address] [place], [address] CO2 [Moles/Vol] 19.5 mmol/L Low 21.0-32.0 [facility] Comment on above: Performed By: #### L 501.2300, L500.4050, L100.0100 #### [facility] [address] [place], [address] Creatinine [Mass/Vol] 0.83 mg/dL Normal 0.70-1.20 [facility] Comment on above: Performed By: #### L 501.2300, L500.4050, L100.0100 #### [facility] [address] [place], [address] ECRCL 81.20 ml/min Normal 50-250 [facility] Comment on above: Performed By: #### L 501.2300, L500.4050, L100.0100 #### [facility] [address] [place], [address] GAP 12 Normal 5-15 [facility] Comment on above: Performed By: #### L 501.2300, L500.4050, L100.0100 #### [facility] [address] [place], [address] GFR/1.73 sq M.predicted among non-blacks MDRD (S/P/Bld) [Vol rate/Area] 89 mL/min/{1.73_m2} Normal >60 [facility] Comment on above: Result Comment: mL/m in/1.73m2 CKD-EPI Creatinine Equation (2020) Performed By: #### L 501.2300, L500.4050, L100.0100 #### [facility] [address] [place], [address] Globulin (S) [Mass/Vol] 2.7 g/dL Normal 2.2-4.2 [facility] Comment on above: Performed By: #### L 501.2300, L500.4050, L100.0100 #### [facility] [address] [place], [address] Glucose [Mass/Vol] 173 mg/dL High 70-99 [facility] Comment on above: Performed By: #### L 501.2300, L500.4050, L100.0100 #### [facility] [address] [place], [address] Potassium [Moles/Vol] 4.1 mmol/L Normal 3.3-5.1 [facility] Comment on above: Performed By: #### L 501.2300, L500.4050, L100.0100 #### [facility] [address] [place], [address] Sodium [Moles/Vol] 134 mmol/L Normal 133-145 [facility] Comment on above: Performed By: #### L 501.2300, L500.4050, L100.0100 #### [facility] [address] [place], [address] T PROT 6.2 g/dL Normal 5.9-8.4 [facility] Comment on above: Performed By: #### L 501.2300, L500.4050, L100.0100 #### [facility] [address] [place], [address] Urea nitrogen [Mass/Vol] 15 mg/dL Normal 4-19 [facility] Comment on above: Performed By: #### L 501.2300, L500.4050, L100.0100 #### [facility] [address] [place], [address] Eosinophil percentageOrdered By: An Multani on 09-01-2024 Eosinophils/100 WBC (Bld) 0.2 % 0-5 [facility] Erythrocyte distribution wid th (RBC) [Ratio]Ordered By: An Multani on 09-01-2024 Erythrocyte distribution width (RBC) [Entitic vol] 49.1 fL High 35.1-43.9 [facility] Erythrocyte distribution wid th ratioOrdered By: An Multani on 09-01-2024 Erythrocyte distribution width (RBC) [Ratio] 14.6 % 11.6-14.6 [facility] Estimation of creatinine anh aranceOrdered By: An Multani on 09-01-2024 Estimated Creatinine Clearance Calc 81.20 ml/min 50-250 [facility] GFR/1.73 sq M.predicted ksenia g non-blacks MDRD (S/P/Bld) [Vol rate/Area]Ordered By: An Multani on 09-01-2024 Estimated GFR (MDRD) Non-Af Amer 89 >60 [facility] Comment on above: mL/min/1.73m2 CKD-EP I Creatinine Equation (2020) Hematocrit Auto (Bld) [Volum e fraction]Ordered By: An Multani on 09-01-2024 Hematocrit (Bld) [Volume fraction] 38.9 % Low 40-54 [facility] Hemoglobin measurementOrdere d By: An Multani on 09-01-2024 Hemoglobin (Bld) [Mass/Vol] 12.8 g/dL Low 13.0-16.5 [facility] Immature granulocytes/100 WB C Auto (Bld)Ordered By: nA Multani on 09-01-2024 Immature granulocytes/100 WBC (Bld) 0.500 % 0.0-0.9 [facility] Comment on above: IG% - Immature Granu locytes (promyelocytes, myelocytes and metamyelocytes) > 1% indicates that a LEFT SHIFT is Present. Laboratory - Chemistry and C hemistry - challengeOrdered By: An Multani on 09-01-2024 AST [Catalytic activity/Vol] 24 U/L <38 [facility] Lymphocytes Auto (Unsp spec) [#/Vol]Ordered By: An Multani on 09-01-2024 Lymphocytes (Bld) [#/Vol] 0.51 10*3/uL Low 0.83-4.51 [facility] Lymphocytes/100 WBC Auto (Un sp spec)Ordered By: An Multani on 09-01-2024 Lymphocytes/100 WBC (Bld) 8.0 % Low 19-41 [facility] MCV (mean corpuscular volume ) determinationOrdered By: An Multani on 09-01-2024 MCV (RBC) [Entitic vol] 92.2 fL 80-94 [facility] Mean corpuscular hemoglobin (MCH) determinationOrdered By: An Multani on 09-01-2024 MCH (RBC) [Entitic mass] 30.3 pg 27.0-32.0 [facility] Mean corpuscular hemoglobin concentration (MCHC) determinationOrdered By: An Multani on 09-01-2024 MCHC (RBC) [Mass/Vol] 32.9 g/dL 32-36 [facility] Mean platelet volume determi nationOrdered By: An Multani on 09-01-2024 Platelet mean volume (Bld) [Entitic vol] 10.1 fL 6.2-12.0 [facility] Monocyte percentageOrdered B y: An Multani on 09-01-2024 Monocytes/100 WBC (Bld) 1.7 % 0-10 [facility] Neutrophil percentageOrdered By: An Multani on 09-01-2024 Neutrophils/100 WBC (Bld) 89.6 % High 47-70 [facility] Nucleated red blood cell per centageOrdered By: An Multani on 09-01-2024 Nucleated RBC/100 WBC (Bld) [Ratio] 0 % 0-5 [facility] Phosphoruson 09-01-2024 Phosphate [Mass/Vol] 3.4 mg/dL Normal 2.7-4.5 [facility] Comment on above: Performed By: #### L 501.2300, L500.4050, L100.0100 #### [facility] [address] [place] [address], [address] Platelet countOrdered By: Rocael Multani on 09-01-2024 Platelets (Bld) [#/Vol] 195 10*3/uL 150-450 [facility] Potassium (Unsp spec) [Mass/ Vol]Ordered By: An Multani on 09-01-2024 Potassium [Moles/Vol] 4.1 mmol/L 3.3-5.1 [facility] RBC Auto (Bld) [#/Vol]Ordere d By: An Multani on 09-01-2024 RBC (Bld) [#/Vol] 4.22 10*6/uL Low 4.6-6.2 [facility] Serum creatinine measurement (mass/volume)Ordered By: An Multani on 09-01-2024 Creatinine [Mass/Vol] 0.83 mg/dL 0.70-1.20 [facility] Serum globulin measurementOr dered By: An Multani on 09-01-2024 Globulin (S) [Mass/Vol] 2.7 g/dL 2.2-4.2 [facility] Serum glucose measurement (m ass/volume)Ordered By: An Multani on 09-01-2024 Glucose [Mass/Vol] 173 mg/dL High 70-99 [facility] Serum or plasma alanine harrison otransferase (ALT) measurementOrdered By: An Multani on 09-01-2024 ALT [Catalytic activity/Vol] 25 U/L <47 [facility] Serum or plasma albumin aung urement (mass/volume)Ordered By: An Multani on 09-01-2024 Albumin [Mass/Vol] 3.4 g/dL 3.4-4.8 [facility] Serum or plasma albumin/glob ulin mass ratioOrdered By: An Multani on 09-01-2024 Albumin/Globulin [Mass ratio] 1.3 {ratio} 0.9-2.4 [facility] Serum or plasma alkaline jourdan sphatase measurementOrdered By: An Multani on 09-01-2024 ALP [Catalytic activity/Vol] 93 U/L 40-129 [facility] Serum or plasma calcium aung urement (mass/volume)Ordered By: An Multani on 09-01-2024 Calcium [Mass/Vol] 8.7 mg/dL 7.6-11.0 [facility] Serum or plasma urea nitroge n measurement (mass/volume)Ordered By: An Multani on 09-01-2024 Urea nitrogen [Mass/Vol] 15 mg/dL 4-19 [facility] Sodium levelOrdered By: Rashaun Multani on 09-01-2024 Sodium [Moles/Vol] 134 mmol/L 133-145 [facility] Total proteinOrdered By: Alvarado Multani on 09-01-2024 Protein [Mass/Vol] 6.2 g/dL 5.9-8.4 [facility] White blood cell (WBC) count Ordered By: An Multani on 09-01-2024 WBC (Bld) [#/Vol] 6.3 10*3/uL 4.4-11.0 [facility] Basic Metabolic Profile (BMP )on 08-31-2024 BUN/CRE 14.9 RATIO Normal 10-20 [facility] Comment on above: Performed By: #### L 500.2500, L100.0100 ####[facility] [address] [place], [address] Calcium [Mass/Vol] 9.3 mg/dL Normal 7.6-11.0 [facility] Comment on above: Performed By: #### L 500.2500, L100.0100 ####[facility] [address] [place], [address] Chloride [Moles/Vol] 101 mmol/L Normal 98-108 [facility] Comment on above: Performed By: #### L 500.2500, L100.0100 ####[facility] [address] [place], [address] CO2 [Moles/Vol] 23.3 mmol/L Normal 21.0-32.0 [facility] Comment on above: Performed By: #### L 500.2500, L100.0100 ####[facility] [address] [place], [address] Creatinine [Mass/Vol] 0.95 mg/dL Normal 0.70-1.20 [facility] Comment on above: Performed By: #### L 500.2500, L100.0100 ####[facility] [address] [place], [address] ECRCL 71.96 ml/min Normal 50-250 [facility] Comment on above: Performed By: #### L 500.2500, L100.0100 ####[facility] [address] [place], [address] GAP 10 Normal 5-15 [facility] Comment on above: Performed By: #### L 500.2500, L100.0100 ####[facility] [address] [place], [address] GFR/1.73 sq M.predicted among non-blacks MDRD (S/P/Bld) [Vol rate/Area] 81 mL/min/{1.73_m2} Normal >60 [facility] Comment on above: Result Comment: mL/m in/1.73m2 CKD-EPI Creatinine Equation (2020) Performed By: #### L 500.2500, L100.0100 ####[facility] [address] [place], [address] Glucose [Mass/Vol] 124 mg/dL High 70-99 [facility] Comment on above: Performed By: #### L 500.2500, L100.0100 ####[facility] [address] [place], [address] Potassium [Moles/Vol] 4.1 mmol/L Normal 3.3-5.1 [facility] Comment on above: Performed By: #### L 500.2500, L100.0100 ####[facility] [address] [place], [address] Sodium [Moles/Vol] 135 mmol/L Normal 133-145 [facility] Comment on above: Performed By: #### L 500.2500, L100.0100 ####[facility] [address] [place], [address] Urea nitrogen [Mass/Vol] 14 mg/dL Normal 4-19 [facility] Comment on above: Performed By: #### L 500.2500, L100.0100 ####[facility] [address] [place], [address] CBC W/Diff, Automatedon 04 Absolute Lymph 0.99 X10 3/uL Normal 0.83-4.51 [facility] Comment on above: Performed By: #### L 500.2500, L100.0100 ####[facility] [address] [place], [address] Absolute Neut 4.4 X10 3/uL Normal 2.0-7.7 [facility] Comment on above: Performed By: #### L 500.2500, L100.0100 ####[facility] [address] [place], [address] Basophils/100 WBC (Bld) 0.5 % Normal 0-1 [facility] Comment on above: Performed By: #### L 500.2500, L100.0100 ####[facility] [address] [place], [address] Eosinophils/100 WBC (Bld) 3.3 % Normal 0-5 [facility] Comment on above: Performed By: #### L 500.2500, L100.0100 ####[facility] [address] [place], [address] Erythrocyte distribution width (RBC) [Ratio] 14.6 % Normal 11.6-14.6 [facility] Comment on above: Performed By: #### L 500.2500, L100.0100 ####[facility] [address] [place], [address] Hematocrit (Bld) [Volume fraction] 38.6 % Low 40-54 [facility] Comment on above: Performed By: #### L 500.2500, L100.0100 ####[facility] [address] [place], [address] Hemoglobin (Bld) [Mass/Vol] 13.1 g/dL Normal 13.0-16.5 [facility] Comment on above: Performed By: #### L 500.2500, L100.0100 ####[facility] [address] [place], [address] IG% 0.200 Normal 0.0-0.9 [facility] Comment on above: Result Comment: IG% - Immature Granulocytes (promyelocytes, myelocytes and metamyelocytes) > 1% indicates that a LEFT SHIFT is Present. Performed By: #### L 500.2500, L100.0100 ####[facility] [address] [place], [address] Lymphocytes/100 WBC (Bld) 15.7 % Low 19-41 [facility] Comment on above: Performed By: #### L 500.2500, L100.0100 ####[facility] [address] [place], [address] MCH (RBC) [Entitic mass] 30.2 pg Normal 27.0-32.0 [facility] Comment on above: Performed By: #### L 500.2500, L100.0100 ####[facility] [address] [place], [address] MCHC (RBC) [Mass/Vol] 33.9 g/dL Normal 32-36 [facility] Comment on above: Performed By: #### L 500.2500, L100.0100 ####[facility] [address] [place], [address] MCV (RBC) [Entitic vol] 88.9 fL Normal 80-94 [facility] Comment on above: Performed By: #### L 500.2500, L100.0100 ####[facility] [address] [place], [address] Monocytes/100 WBC (Bld) 11.1 % High 0-10 [facility] Comment on above: Performed By: #### L 500.2500, L100.0100 ####[facility] [address] [place], [address] Neutrophils/100 WBC (Bld) 69.2 % Normal 47-70 [facility] Comment on above: Performed By: #### L 500.2500, L100.0100 ####[facility] [address] [place], [address] Nucleated RBC (Bld) [#/Vol] 0 10*3/uL Normal 0-5 [facility] Comment on above: Performed By: #### L 500.2500, L100.0100 ####[facility] [address] [place], [address] Platelet mean volume (Bld) [Entitic vol] 10.3 fL Normal 6.2-12.0 [facility] Comment on above: Performed By: #### L 500.2500, L100.0100 ####[facility] [address] [place], [address] Platelets (Bld) [#/Vol] 210 10*3/uL Normal 150-450 [facility] Comment on above: Performed By: #### L 500.2500, L100.0100 ####[facility] [address] [place], [address] RBC (Bld) [#/Vol] 4.34 10*6/uL Low 4.6-6.2 [facility] Comment on above: Performed By: #### L 500.2500, L100.0100 ####[facility] [address] [place], [address] RDW SD 47.5 fl High 35.1-43.9 [facility] Comment on above: Performed By: #### L 500.2500, L100.0100 ####[facility] [address] [place], [address] WBC (Bld) [#/Vol] 6.3 10*3/uL Normal 4.4-11.0 [facility] Comment on above: Performed By: #### L 500.2500, L100.0100 ####[facility] [address] [place], [address] Chest PA and Lateralon 08-31 Chest PA and Lateral [facility] Imaging Services [address] [place] [address] Chest PA and Lateral MR#: [id number] Acct: [id number] Name: MIRI CAI Rep #: [id number] : 1945 M 78 From: Irwin Hua MD PCP: Dr. Eligio Contreras MD Status: REG ER Study: Chest PA and Lateral Date of Exam: 08/31/24 Exam# [id number] Ordering Dr: Jayden Sanchez DO PROCEDURE: CHEST PA AND LATERAL 08/31/2024 REASON FOR EXAM: COUGH TECHNIQUE: Frontal and lateral views of the chest. FINDINGS: Hardware: None Heart: Heart size is moderately enlarged. Mediastinum: The mediastinal contour is unremarkable. Lungs: Poor inspiration with some bibasilar atelectasis. Bones: The bones are unremarkable. RAD/Chest PA and Lateral IMPRESSION: Poor inspiration with some bibasilar atelectasis. Reading Location: [id number] CC: Dr. Eligio Contreras MD; Dr. Jayden Sanchez DO Operations Recruiter: Signed Normal [facility] Emergency Department Summary on 08-31-2024 Emergency Department Summary [facility] Medical Records Department [address] [place] [address] Emergency Department Summary 08/31/24 MR#: [id number] Acct: [id number] Name: MIRI CAI Rep #: [id number] : 1945 78 From: Jayden Sanchez DO PCP: Dr. Eligio Contreras MD Status:ADM ZACK Location: [address] History of Present Illness Chief Complaint: Shortness of Breath Informant: patient, family, EMS and SNF Narrative Narrative: 78-year-old male from [facility] presenting to the emergency room with cough shortness of breath. Patient reportedly had a chest x-ray that was negative that he was started on Zithromax today. No reported fever. Patient was reportedly 88% on room air there. He has not been hypoxic per nursing here. Oral temperature here is 99.8. Patient has had prior stroke and has expressive aphasia and chronic right-sided deficits. He is on Eliquis due to chronic A-fib. At baseline patient is wheelchair-bound. [facility] Medical History Esophageal stenosis History of left common carotid artery stent placement Hyperlipidemia Hypertension Atrial fibrillation History of skin cancer Stenosis of left internal carotid artery Stroke Cataract Afib Diabetes Home Medications ???Medication ???Instructions ???Recorded ???Last Taken ???Type apixaban 5 mg tablet (Eliquis) 5 mg PO BID Check with primary 04/02 Unknown History doctor atorvastatin 80 mg tablet 80 mg PO QHS cholesterol 02/19/22 Unknown History clopidogrel 75 mg tablet (Plavix) 75 mg PO DAILY Check with primary 02/19/22 Unknown History doctor metoprolol tartrate 50 mg tablet 50 mg PO BID BP 02/19/22 Unknown H istory tamsulosin 0.4 mg capsule (Flomax) 0.4 mg PO DAILY retention 02/19/22 08:30 History vit A 7,160 unit-vit C 113 mg-vit 1 tab PO DAILY Check with primary 02/19/22 Unknown History E 100 hifn-tokh-tklrzf tablet doctor doxazosin 1 mg tablet 1 mg PO QHS urine 04/12/22 Unknown History menthol 0.44 %-zinc oxide 20.6 % 1 applic topical BID@0600,2200 07/03 Unknown History topical ointment (Calmoseptine) cream pantoprazole 40 mg tablet,delayed 40 mg PO BID heartburn 04/12/22 U nknown History release sennosides 8.6 mg-docusate sodium 1 tab PO QHS constipation 2 Unknown History 50 mg tablet (Stool Softener-Stimulant Laxative) Arthritis Pain Compound 0 click topical BID ##0 05/02/22 U nknown Rx acetaminophen 500 mg tablet 1,000 mg (2 x 500 mg) PO Q8 #0 tab s 05/02/22 Unknown Rx bisacodyl 10 mg rectal suppository 10 mg MI .PRN X 1 PRN Constipati on 05/02/22 Unknown Rx #0 ea food supplemt, lactose-reduced 120 ml PO 4X/DAY #0 mL 05/02/22 Un known Rx 0.08 gram-1.5 kcal/mL oral liquid (Ensure Plus High Protein) magnesium hydroxide 400 mg/5 mL 30 ml PO .PRN X 1 PRN Constipation 05/02/22 Unknown Rx oral suspension #0 mL oxymetazoline 0.05 % nasal spray 2 spray intranasal Q12H PRN Unknown Rx (Afrin (oxymetazoline)) epistaxis 3 days #15 mL sodium chloride 0.65 % nasal spray 1 spray NASAL ACHS #0 mL 2 Unknown Rx aerosol (Deep Sea Nasal) azithromycin 250 mg tablet 250 mg PO DAILY 08/31/24 Unknown H istory (Zithromax) loperamide 2 mg capsule 2 mg PO Q6H PRN loose stool Unknown History (Anti-Diarrheal (loperamide)) nystatin 100,000 unit/gram topical topical 08/31/24 Unknown History powder sertraline 25 mg tablet 25 mg PO DAILY 08/31/24 Unknown Hi story tizanidine 4 mg tablet 4 mg PO QHS 08/31/24 Unknown Histo ry Allergy/AdvReac Type Severity Reaction Status Date / Time No Known Allergies Allergy Verified 08/31/24 20:13 Family History no significant family his Surgical History Status post dilation of esophageal narrowing History of left shoulder replacement History of cataract surgery History of left shoulder replacement Social History household members: none Smoking Status: Current some day smoker tobacco type: pipe and cigars alcohol intake: current alcohol intake frequency: holidays/special occasions only substance use type: does not use ROS ROS ED Review of Systems ROS Unobtainable: other Details: Expressive aphasia Constitutional Constitutional ED: Denies fever(s) Respiratory/Chest Respiratory/Chest: Reports cough and dyspnea Gastrointestinal Gastrointestinal: Denies abdominal pain, diarrhea, nausea or vomiting EXAM Physical Exam Const Vital Signs: 08/31/24 20:14 08/31/24 20:20 08/31/24 20:22 Temperature 99.8 F H 99.8 F H Temperature Source Oral Oral Pulse Rate 78 82 Respiratory Rate 26 H 24 H Re (more content not included)... Normal [facility] H AND P Exam - Hospitaliston 08-31-2024 H&P Exam - Hospitalist [facility] Medical Records Department [address] [place] [address] H P Exam - Hospitalist 08/31/247 MR#: [id number] Acct: [id number] Name: MIRI CAI Rep #: [id number] : 1945 78 From: An Cassidy DO PCP: Dr. Eligio Contreras MD Status:ADM IN [place] [id number] HPI - General General Date of Admission: 08/31/24 Date of Service: 08/31/24 Chief Complaint: SOB, Wheezing and Cough. HPI Narrative MIRI CAI, is a 78 M with a past medical history of essential hypertension; on metoprolol tartrate twice daily, hyperlipidemia; on high-dose atorvastatin, obesity; with BMI of 30.2 this admission, history of DM-2; currently not on treatment, history of atrial fibrillation; on apixaban, history of CVA; with severe expressive aphasia and chronic Right-sided weakness on clopidogrel with patient wheelchair-bound at baseline, history of Left internal carotid artery stenosis; s/p stent, history of skin cancer, history of cataract surgery, depression; on sertraline, BPH; on tamsulosin and doxazosin, history of GERD with esophageal stenosis; s/p esophageal dilatation on pantoprazole twice daily and OA; s/p Left total shoulder replacement who presents to [facility] ER after staff at [facility] noted patient was having shortness of breath, wheezing and cough. Mr. Cai is not a reliable historian at this time so information was gathered from chart, medical staff and computer. According to the records the patient had already previously been started on oral azithromycin earlier today for presumed bronchitis but when his saturations on room air dropped to 88% he was sent in for further evaluation and treatment. Shortly after arrival he was noted to have a low-grade fever of 99.8 ???F with multiple people at that facility noted to have RSV. In the ER he was diagnosed with acute RSV infection complicated by clinical evidence of Acute Bronchitis along with severe wheezing causing Acute Respiratory Insufficiency and he was then admitted to the general medical floor with telemetric monitoring for a stay that is expected to extend beyond 2 midnights. [facility] Medical History Esophageal stenosis History of left common carotid artery stent placement Hyperlipidemia Hypertension Atrial fibrillation History of skin cancer Stenosis of left internal carotid artery Stroke Cataract Afib Diabetes Home Medications ???Medication ???Instructions ???Recorded ???Last Taken ???Type apixaban 5 mg tablet (Eliquis) 5 mg PO BID Check with primary 04/02 Unknown History doctor atorvastatin 80 mg tablet 80 mg PO QHS cholesterol 02/19/22 Unknown History clopidogrel 75 mg tablet (Plavix) 75 mg PO DAILY Check with primary 02/19/22 Unknown History doctor metoprolol tartrate 50 mg tablet 50 mg PO BID BP 02/19/22 Unknown H istory tamsulosin 0.4 mg capsule (Flomax) 0.4 mg PO DAILY retention 02/19/22 08:30 History vit A 7,160 unit-vit C 113 mg-vit 1 tab PO DAILY Check with primary 02/19/22 Unknown History E 100 bmop-zypf-bfdyxs tablet doctor doxazosin 1 mg tablet 1 mg PO QHS urine 04/12/22 Unknown History menthol 0.44 %-zinc oxide 20.6 % 1 applic topical BID@0600,2200 07/03 Unknown History topical ointment (Calmoseptine) cream pantoprazole 40 mg tablet,delayed 40 mg PO BID heartburn 04/12/22 U nknown History release sennosides 8.6 mg-docusate sodium 1 tab PO QHS constipation 2 Unknown History 50 mg tablet (Stool Softener-Stimulant Laxative) Arthritis Pain Compound 0 click topical BID ##0 05/02/22 U nknown Rx acetaminophen 500 mg tablet 1,000 mg (2 x 500 mg) PO Q8 #0 tab s 05/02/22 Unknown Rx bisacodyl 10 mg rectal suppository 10 mg MI .PRN X 1 PRN Constipati on 05/02/22 Unknown Rx #0 ea food supplemt, lactose-reduced 120 ml PO 4X/DAY #0 mL 05/02/22 Un known Rx 0.08 gram-1.5 kcal/mL oral liquid (Ensure Plus High Protein) magnesium hydroxide 400 mg/5 mL 30 ml PO .PRN X 1 PRN Constipation 05/02/22 Unknown Rx oral suspension #0 mL oxymetazoline 0.05 % nasal spray 2 spray intranasal Q12H PRN Unknown Rx (Afrin (oxymetazoline)) epistaxis 3 days #15 mL sodium chloride 0.65 % nasal spray 1 spray NASAL ACHS #0 mL 2 Unknown Rx aerosol (Deep Sea Nasal) azithromycin 250 mg tablet 250 mg PO DAILY 08/31/24 Unknown H istory (Zithromax) loperamide 2 mg capsule 2 mg PO Q6H PRN loose stool Unknown History (Anti-Diarrheal (loperamide)) nystatin 100,000 unit/gram topical topical 08/31/24 Unknown History powder sertraline 25 mg tablet 25 mg PO DAILY 08/31/24 Unknown Hi story tizanidine 4 mg tablet 4 mg PO QHS 08/31/24 Unknown Histo ry Allergy/AdvReac Type Severity Antiha (more content not included)... Normal [facility] Influenza virus A and B and SARS-CoV-2 (COVID-19) and Respiratory syncytial virus RNAOrdered By: Jayden Sanchez on 08-31-2024 SARS-CoV-2 (COVID-19) RNA NICO+probe Ql (Unsp spec) RSV Abnormal [facility] M100.678on 08-31-2024 M100.678 SARS-CoV-2 (COVID 19 ) Negative INFLUENZA A Negative INFLUENZA B Negative RSV PCR A Positive A RSV Normal [facility] Comment on above: Performed By: #### M 100.678 #### [facility] Laboratory [address] [facility] [place], [place], [id number] Magnesiumon 08-31-2024 Magnesium [Mass/Vol] 1.8 mg/dL Normal 1.5-2.2 [facility] Comment on above: Performed By: #### L 501.5200 ####[facility] [address] [facility] [place], [address] Magnesium (Unsp spec) [Mass/ Vol]Ordered By: An Multani on 08-31-2024 Magnesium [Mass/Vol] 1.8 mg/dL 1.5-2.2 [facility] TSH DL <= 0.005 mIU/L QnOrde red By: An Multani on 08-31-2024 Thyroid Stimulating Hormone (TSH) 4.360 uIU/mL High 0.300-4.200 [facility] Thyroid Stim Hormone (TSH)on 08-31-2024 TSH 4.360 uIU/mL High 0.300-4.200 [facility] Comment on above: Performed By: #### L 501.9520 #### [facility] [address] [place], [address] Urinalysis, Completeon 08-31 BACTERIA Normal None Seen [facility] Comment on above: Order Comment: CLEAN CATCH Result Comment: PT D ISCHARGED Performed By: #### L 400.0001 ####[facility] [address] [place], [address] BILIRUBIN URINE Normal Negative [facility] Comment on above: Order Comment: CLEAN CATCH Result Comment: PT D ISCHARGED Performed By: #### L 400.0001 ####[facility] [address] [place], [address] Clarity (U) Normal Clear [facility] Comment on above: Order Comment: CLEAN CATCH Result Comment: PT D ISCHARGED Performed By: #### L 400.0001 ####[facility] [address] [place], [address] Color (U) Normal Yellow [facility] Comment on above: Order Comment: CLEAN CATCH Result Comment: PT D ISCHARGED Performed By: #### L 400.0001 ####[facility] [address] [place], [address] EPI,SQUAMOUS Normal 0-5 [facility] Comment on above: Order Comment: CLEAN CATCH Result Comment: PT D ISCHARGED Performed By: #### L 400.0001 ####[facility] [address] [place], [address] GLUCOSE, UR Normal Normal [facility] Comment on above: Order Comment: CLEAN CATCH Result Comment: PT D ISCHARGED Performed By: #### L 400.0001 ####[facility] [address] [place], [address] KETONE UR Normal Negative [facility] Comment on above: Order Comment: CLEAN CATCH Result Comment: PT D ISCHARGED Performed By: #### L 400.0001 ####[facility] [address] [place], [address] LEUK ESTERASE Normal Negative [facility] Comment on above: Order Comment: CLEAN CATCH Result Comment: PT D ISCHARGED Performed By: #### L 400.0001 ####[facility] [address] [facility] [address] Mucus Ql (Urine sed) Normal [facility] Comment on above: Order Comment: CLEAN CATCH Result Comment: PT D ISCHARGED Performed By: #### L 400.0001 ####[facility] [address] [place], [address] Nitrite Ql (U) Normal Negative [facility] Comment on above: Order Comment: CLEAN CATCH Result Comment: PT D ISCHARGED Performed By: #### L 400.0001 ####[facility] [address] [facility] [address] OCCULT BLOOD-UR Normal Negative [facility] Comment on above: Order Comment: CLEAN CATCH Result Comment: PT D ISCHARGED Performed By: #### L 400.0001 ####[facility] [address] [facility] [address] pH UR Normal 5.0 - 8.0 [facility] Comment on above: Order Comment: CLEAN CATCH Result Comment: PT D ISCHARGED Performed By: #### L 400.0001 ####[facility] [address] [place], [address] PROT DIPSTX Normal Negative [facility] Comment on above: Order Comment: CLEAN CATCH Result Comment: PT D ISCHARGED Performed By: #### L 400.0001 ####[facility] [address] [place], [address] RBC Normal 0-5 [facility] Comment on above: Order Comment: CLEAN CATCH Result Comment: PT D ISCHARGED Performed By: #### L 400.0001 ####[facility] [address] [place], [address] SP.GR. DIPSTX Normal 1.002-1.030 [facility] Comment on above: Order Comment: CLEAN CATCH Result Comment: PT D ISCHARGED Performed By: #### L 400.0001 ####[facility] [address] [place], [address] UR Preservative Normal [facility] Comment on above: Order Comment: CLEAN CATCH Result Comment: PT D ISCHARGED Performed By: #### L 400.0001 ####[facility] [address] [place], [address] UROBILI Normal Normal [facility] Comment on above: Order Comment: CLEAN CATCH Result Comment: PT D ISCHARGED Performed By: #### L 400.0001 ####[facility] [address] [place], [address] WBC Normal 0-5 [facility] Comment on above: Order Comment: CLEAN CATCH Result Comment: PT D ISCHARGED Performed By: #### L 400.0001 ####[facility] [address] [place], [address] CNPNon [facility]20[facility] CAI ([id number]) 1945 M Date Time Provider Department 05/22/22 AIDEN GONZALEZ During your visit today, we recorded the following information about you: Braxton Rehman RN 05/22/2022 1:04 PM Signed MODIFIED TALHA SCORE POST-DISCHARGE Telephone Visit Patient Name: Miri Cai Today's date: May 22, 2022 Date of discharge: February 19, 2022 Person giving information: Piero Villeda. Relationship to patient: sister. Contact information: [phone] Contact attempt: #1 Patient discharge location: Acute Rehab Patient current location: SNF Presentation to ED or readmission after discharge: No Modified Reno Score: 90 days post discharge: 5 = Severe disability. Bedridden, incontinent. Requires constant care AND attention. Mortality: No Sister states that Miri cannot use his right side at all, and has very limited verbal capabilities. He has continued therapy but needs 24-hour care; he is a two-person assist for everything. Does attempt to feed himself at times. Signature: Braxton Rehman RN May 22, 2022 1:01 PM Allergies As of Date: 05/22/2022 (No Known Allergies) Date Reviewed: 03/26/2022 Reviewed by: Angela Iqbal LPN - Fully Assessed Reason for Visit: Modified Reno Score [Other] Prescriptions as of 05/22/2022 - acetaminophen (TYLENOL) 325 mg tablet 2 tablets by ORAL/FEEDING TUBE route every 4 hours as needed for pain. - atorvastatin (LIPITOR) 80 mg tablet 1 tablet by ORAL/FEEDING TUBE route daily at bedtime. - tamsulosin (FLOMAX) 0.4 mg Take 1 capsule by mouth once daily. - metoprolol tartrate, short acting, (LOPRESSOR) 50 mg tablet 1 tablet by ORAL/FEEDING TUBE route every 12 hours. - clopidogrel (PLAVIX) 75 mg tablet 1 tablet by ORAL/FEEDING TUBE route once daily. - potassium chloride (KLOR-CON) 20 mEq packet Take 40 mEq by mouth once daily. - vit A/C/E ac/ZnOx/cupric oxide (EYE VITAMIN AND MINERALS ORAL) Take 1 capsule by mouth once daily. Vision Essential - ELIQUIS 5 mg tab(s) Take 5 mg by mouth twice daily. Meds Comments as of 02/08/2022: 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.*02/07/2022 Hx of atrial flutter [Z86.79] 02/07/2022 Atrial flutter with rapid ventricular response *02/07/2022 ICAO (internal carotid artery occlusion), left *02/07/2022 Status post reverse total replacement of left s*02/07/2022 Type 2 diabetes mellitus without complication, *02/07/2022 HTN (hypertension) [I10] 02/07/2022 HLD (hyperlipidemia) [E78.5] 02/07/2022 Urinary retention [R33.9] 02/10/2022 02/19/2022 Encounter Status:Closed by BRAXTON REHMAN on 05/22/22 [facility] So 05-16-2022 ANAIS Telephone (ORUPDO) MIRI CAI ([id number]) 1945 M Date Time Provider Department 05/16/22 CARSON BULLOCK III During your visit today, we recorded the following information about you: Sadie Bowles 05/16/2022 11:02 AM Signed Called patient to advise of missed appointment. No answer and answering machine beeps and states its full. Unable to leave message. Sadie Bowles 05/16/2022 3:46 PM Signed Sent first no show letter. Sadie Bowles Allergies As of Date: 05/16/2022 (No Known Allergies) Date Reviewed: 03/26/2022 Reviewed by: Angela Iqbal LPN - Fully Assessed Reason for Visit: No Show [1558] Prescriptions as of 05/16/2022 - acetaminophen (TYLENOL) 325 mg tablet 2 tablets by ORAL/FEEDING TUBE route every 4 hours as needed for pain. - atorvastatin (LIPITOR) 80 mg tablet 1 tablet by ORAL/FEEDING TUBE route daily at bedtime. - tamsulosin (FLOMAX) 0.4 mg Take 1 capsule by mouth once daily. - metoprolol tartrate, short acting, (LOPRESSOR) 50 mg tablet 1 tablet by ORAL/FEEDING TUBE route every 12 hours. - clopidogrel (PLAVIX) 75 mg tablet 1 tablet by ORAL/FEEDING TUBE route once daily. - potassium chloride (KLOR-CON) 20 mEq packet Take 40 mEq by mouth once daily. - vit A/C/E ac/ZnOx/cupric oxide (EYE VITAMIN AND MINERALS ORAL) Take 1 capsule by mouth once daily. Vision Essential - ELIQUIS 5 mg tab(s) Take 5 mg by mouth twice daily. Meds Comments as of 02/08/2022: 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.*02/07/2022 Hx of atrial flutter [Z86.79] 02/07/2022 Atrial flutter with rapid ventricular response *02/07/2022 ICAO (internal carotid artery occlusion), left *02/07/2022 Status post reverse total replacement of left s*02/07/2022 Type 2 diabetes mellitus without complication, *02/07/2022 HTN (hypertension) [I10] 02/07/2022 HLD (hyperlipidemia) [E78.5] 02/07/2022 Urinary retention [R33.9] 02/10/2022 02/19/2022 Letter Text Encounter Status:Closed by SADIE BOWLES on 05/16/22 [facility] 2021 Chloride [Moles/Vol] 109 mmol/L 98-107 [facility] Work Phone: Glucose [Mass/Vol] 107 mg/dL 74-106 [facility] Work Phone: Comment on above: Fasting Glucose resu lt from 100 to 125 mg/dL suggests IMPAIRED HOMEOSTASIS per A.D.A. criteria. Potassium [Moles/Vol] 3.9 mmol/L 3.5-5.1 [facility] Work Phone: Sodium [Moles/Vol] 141 mmol/L 136-145 [facility] Work Phone: Blood hemoglobin measurement (mass/volume)on 05-01-2022 Hemoglobin (Bld) [Mass/Vol] 12.3 g/dL 13.0-16.5 [facility] Work Phone: Hematocrit Auto (Bld) [Volum e fraction]on 05-01-2022 Hematocrit (Bld) [Volume fraction] 39.2 % 40-54 [facility] Work Phone: Laboratory - Chemistry and C hemistry - challengeon 05-01-2022 CO2 [Moles/Vol] 25.0 mmol/L 21.0-32.0 [facility] Work Phone: Magnesium [Mass/Vol] 1.9 mg/dL 1.6-2.6 [facility] Work Phone: Urea nitrogen/Creatinine [Mass ratio] 40.4 mg/mg 10-20 [facility] Work Phone: No Panel Informationon 05-01 Estimated Creatinine Clearance Calc 62.86 ml/min [facility] Work Phone: Estimated GFR (MDRD) Amer 131 mL/min >60 [facility] Work Phone: Comment on above: GFR Calc Estimated GFR (MDRD) Non-Af Amer 108 mL/min >60 [facility] Work Phone: Comment on above: Non- GFR Calc Serum or plasma calcium aung urement (mass/volume)on 05-01-2022 Calcium [Mass/Vol] 9.2 mg/dL 8.5-10.1 [facility] Work Phone: Serum or plasma creatinine m easurement (mass/volume)on 05-01-2022 Creatinine [Mass/Vol] 0.74 mg/dL 0.70-1.30 [facility] Work Phone: Comment on above: The validity of the calculated GFR & GFRAA in patients over 70 years has not been determined. Clinical correlation is essential. Serum or plasma urea nitroge n measurement (mass/volume)on 05-01-2022 Urea nitrogen [Mass/Vol] 30 mg/dL 7-18 [facility] Work Phone: Thin prep Papanicolaou smear with manual screeningon 05-01-2022 Thin prep Papanicolaou smear with manual screening 7 5-15 [facility] Work Phone: Basophil percentageon 2021 WBC (Bld) [#/Vol] 5.2 10*3/uL 4.4-11.0 [facility] Work Phone: Blood erythrocytes count (nu mber/volume)on 04-22-2022 RBC (Bld) [#/Vol] 4.17 10*6/uL 4.6-6.2 [facility] Work Phone: Blood platelet mean volumeon 04-22-2022 Platelet mean volume (Bld) [Entitic vol] 10.2 fL 6.2-12.0 [facility] Work Phone: Determination of erythrocyte mean corpuscular volume (MCV)on 04-22-2022 MCV (RBC) [Entitic vol] 91.6 fL 80-94 [facility] Work Phone: Laboratory - Hematology and Cell countson 04-22-2022 Erythrocyte distribution width (RBC) [Entitic vol] 51.9 fL 35.1-43.9 [facility] Work Phone: Erythrocyte distribution width (RBC) [Ratio] 15.5 % 11.6-14.6 [facility] Work Phone: MCH (RBC) [Entitic mass] 30.2 pg 27.0-32.0 [facility] Work Phone: MCHC Auto (RBC) [Mass/Vol]on 04-22-2022 MCHC (RBC) [Mass/Vol] 33.0 g/dL 32-36 [facility] Work Phone: Platelets bldon 04-22-2022 Platelets (Bld) [#/Vol] 206 10*3/uL 150-450 [facility] Work Phone: Basophil percentageon 2021 Basophil percentage 0 SEEN /hpf 0-5 [facility] Work Phone: Bilirubin Test strip Ql (U)o n 04-18-2022 Bilirubin Ql (U) Negative Negative [facility] Work Phone: Ketones Test strip Ql (U)on 04-18-2022 Ketones Ql (U) Negative Negative [facility] Work Phone: Mucus LM Ql (Urine sed)on Mucus Ql (Urine sed) 0 SEEN /hpf [facility] Work Phone: Nitrite Test strip Ql (U)on 04-18-2022 Nitrite Ql (U) Negative Negative [facility] Work Phone: Protein Test strip Ql (U)on 04-18-2022 Protein Ql (U) Negative Negative [facility] Work Phone: Squamous epithelial cells de tection in urine sediment by light microscopyon 04-18-2022 Epithelial cells.squamous LM Ql (Urine sed) 0 SEEN /hpf 0-5 [facility] Work Phone: Urine blood detectionon RBC Ql (U) Negative Negative [facility] Work Phone: RBC Ql (U) 0 SEEN /hpf 0-5 [facility] Work Phone: Urine clarityon 04-18-2022 Clarity (U) Clear Clear [facility] Work Phone: Urine color determinationon 04-18-2022 Color (U) Yellow Yellow [facility] Work Phone: Urine glucose detectionon Glucose Ql (U) Normal mg/dl Normal [facility] Work Phone: Urine leukocyte esterase det ection by dipstickon 04-18-2022 Leukocyte esterase Test strip Ql (U) Negative Negative [facility] Work Phone: Urine pHon 04-18-2022 pH (U) 6.0 [pH] 5.0 - 8.0 [facility] Work Phone: Urine sediment bacteria coun t by microscopy (number/high power field)on 04-18-2022 Bacteria LM.HPF (Urine sed) [#/Area] 0 /[HPF] None Seen [facility] Work Phone: Urine specific gravity measu rementon 04-18-2022 Specific gravity (U) [Rel density] 1.020 1.002-1.030 [facility] Work Phone: Urobilinogen Auto test strip Ql (U)on 04-18-2022 Urobilinogen Ql (U) Normal mg/dl Normal [facility] Work Phone: Basophil percentageon 2021 Basophil percentage 3.1 mg/dL 2.5-4.9 [facility] Work Phone: Bilirubin [Mass/Vol] 0.40 mg/dL 0.20-1.00 [facility] Work Phone: Comment on above: For patients on eltr ombopag therapy, use of Dimension [place] TBIL is not recommended. Protein [Mass/Vol] 6.1 g/dL 6.4-8.2 [facility] Work Phone: Laboratory - Chemistry and C hemistry - challengeon 04-13-2022 ALP [Catalytic activity/Vol] 87 U/L 45-117 [facility] Work Phone: ALT [Catalytic activity/Vol] 18 U/L 16-61 [facility] Work Phone: Globulin (S) [Mass/Vol] 3.5 g/dL 2.2-4.2 [facility] Work Phone: Serum or plasma albumin aung urement (mass/volume)on 04-13-2022 Albumin [Mass/Vol] 2.6 g/dL 3.2-5.0 [facility] Work Phone: Serum or plasma albumin/glob ulin mass ratioon 04-13-2022 Albumin/Globulin [Mass ratio] 0.7 {ratio} 0.9-2.4 [facility] Work Phone: Thin prep Papanicolaou smear with manual screeningon 04-13-2022 Thin prep Papanicolaou smear with manual screening 14 U/L 15-37 [facility] Work Phone: Absolute lymphocyte counton 04-01-2022 Lymphocytes Auto (Unsp spec) [#/Vol] 0.89 10*3/uL 0.83-4.51 [facility] Work Phone: Basophil percentageon 2021 Basophils/100 WBC (Bld) 0.5 % 0-1 [facility] Work Phone: [phone] Chloride [Moles/Vol] 108 mmol/L 98-107 [facility] Work Phone: Eosinophils/100 WBC (Bld) 3.6 % 0-5 [facility] Work Phone: Glucose [Mass/Vol] 99 mg/dL 74-106 [facility] Work Phone: [phone] Neutrophils (Bld) [#/Vol] 2.6 10*3/uL 2.0-7.7 [facility] Work Phone: Neutrophils/100 WBC (Bld) 63.7 % 47-70 [facility] Work Phone: [phone] Potassium [Moles/Vol] 3.1 mmol/L 3.5-5.1 [facility] Work Phone: [phone] Sodium [Moles/Vol] 142 mmol/L 136-145 [facility] Work Phone: [phone] WBC (Bld) [#/Vol] 4.1 10*3/uL 4.4-11.0 [facility] Work Phone: Blood erythrocytes count (nu mber/volume)on 04-01-2022 RBC (Bld) [#/Vol] 3.90 10*6/uL 4.6-6.2 [facility] Work Phone: Blood hemoglobin measurement (mass/volume)on 04-01-2022 Hemoglobin (Bld) [Mass/Vol] 11.6 g/dL 13.0-16.5 [facility] Work Phone: Blood lymphocytes/100 leukoc yteson 04-01-2022 Lymphocytes/100 WBC (Bld) 21.5 % 19-41 [facility] Work Phone: Blood monocytes/100 leukocyt eson 04-01-2022 Monocytes/100 WBC (Bld) 10.2 % 0-10 [facility] Work Phone: Blood platelet mean volumeon 04-01-2022 Platelet mean volume (Bld) [Entitic vol] 11.0 fL 6.2-12.0 [facility] Work Phone: Determination of erythrocyte mean corpuscular volume (MCV)on 04-01-2022 MCV (RBC) [Entitic vol] 93.1 fL 80-94 [facility] Work Phone: Hematocrit Auto (Bld) [Volum e fraction]on 04-01-2022 Hematocrit (Bld) [Volume fraction] 36.3 % 40-54 [facility] Work Phone: Laboratory - Chemistry and C hemistry - challengeon 04-01-2022 CO2 [Moles/Vol] 27.0 mmol/L 21.0-32.0 [facility] Work Phone: Urea nitrogen/Creatinine [Mass ratio] 23.4 mg/mg 10-20 [facility] Work Phone: Laboratory - Hematology and Cell countson 04-01-2022 Erythrocyte distribution width (RBC) [Entitic vol] 54.5 fL 35.1-43.9 [facility] Work Phone: Erythrocyte distribution width (RBC) [Ratio] 15.8 % 11.6-14.6 [facility] Work Phone: Immature granulocytes/100 WBC (Bld) 0.500 % 0.0-0.9 [facility] Work Phone: Comment on above: IG% - Immature Granu locytes (promyelocytes, myelocytes and metamyelocytes) > 1% indicates that a LEFT SHIFT is Present. MCH (RBC) [Entitic mass] 29.7 pg 27.0-32.0 [facility] Work Phone: Nucleated RBC/100 WBC (Bld) [Ratio] 0 % 0-5 [facility] Work Phone: MCHC Auto (RBC) [Mass/Vol]on 04-01-2022 MCHC (RBC) [Mass/Vol] 32.0 g/dL 32-36 [facility] Work Phone: No Panel Informationon 04-01 Estimated GFR (MDRD) Amer 144 mL/min >60 [facility] Work Phone: Comment on above: GFR Calc Estimated GFR (MDRD) Non-Af Amer 119 mL/min >60 [facility] Work Phone: Comment on above: Non- GFR Calc Platelets bldon 04-01-2022 Platelets (Bld) [#/Vol] 171 10*3/uL 150-450 [facility] Work Phone: Serum or plasma calcium aung urement (mass/volume)on 04-01-2022 Calcium [Mass/Vol] 8.8 mg/dL 8.5-10.1 [facility] Work Phone: Serum or plasma creatinine m easurement (mass/volume)on 04-01-2022 Creatinine [Mass/Vol] 0.68 mg/dL 0.70-1.30 [facility] Work Phone: Comment on above: The validity of the calculated GFR & GFRAA in patients over 70 years has not been determined. Clinical correlation is essential. Serum or plasma urea nitroge n measurement (mass/volume)on 04-01-2022 Urea nitrogen [Mass/Vol] 16 mg/dL 11-26 [facility] Work Phone: Thin prep Papanicolaou smear with manual screeningon 04-01-2022 Thin prep Papanicolaou smear with manual screening 7 - [facility] Work Phone: CNOVon 03-26-2022 CNOV Office Visit (ORUPDO ) MIRI CAI ([id number]) 1945 M Date Time Provider Department 03/26/22 10:20 AM BELKIS NAM During your visit today, we recorded the following information about you: Pulse Blood pressure Weight Height 96/minute 99/64 84.4 kg 1.791 m Belkis Nam PA-C 03/26/2022 2:50 PM Signed 2 WEEK POST OP REVERSE TOTAL SHOULDER ARTHROPLASTY HPI: The patient is here for a post-operative visit following a left reverse shoulder total shoulder arthroplasty with open biceps tenodesis of the long head of the biceps on 02/06/22. The patient is approximately 7 weeks out from surgery. While in the hospital the patient suffered from a stroke. He was taken up to [facility]. He was in a acute care facility for 11 days after surgery and is now residing in a nursing facility. The right side of his body was affected by his stroke. He is able to move the left side of his body Regarding his left shoulder, he notes mild pain and limitation. He has not begun physical therapy for his operative shoulder due to the treatment for his stroke. Their pain is currently controlled with the P.O. pain medications that were prescribed after surgery. The patient's block wore off shortly after surgery and the patient denies any paresthesias in the operative arm. The patient denies wound issues, numbness/tingling, chest pain, or SOB. PAIN EVALUATION 03/26/2022 1011 Pain Location: Shoulder-Left Description: Aching Frequency: Intermittent ALLERGIES No Known Allergies Current Outpatient Medications Medication Sig Dispense Refill acetaminophen (TYLENOL) 325 mg tablet 2 tablets by ORAL/FEEDING TUBE route every 4 hours as needed for pain. atorvastatin (LIPITOR) 80 mg tablet 1 tablet by ORAL/FEEDING TUBE route daily at bedtime. tamsulosin (FLOMAX) 0.4 mg Take 1 capsule by mouth once daily. metoprolol tartrate, short acting, (LOPRESSOR) 50 mg tablet 1 tablet by ORAL/FEEDING TUBE route every 12 hours. clopidogrel (PLAVIX) 75 mg tablet 1 tablet by ORAL/FEEDING TUBE route once daily. potassium chloride (KLOR-CON) 20 mEq packet Take 40 mEq by mouth once daily. vit A/C/E ac/ZnOx/cupric oxide (EYE VITAMIN AND MINERALS ORAL) Take 1 capsule by mouth once daily. Vision Essential ELIQUIS 5 mg tab(s) Take 5 mg by mouth twice daily. No current facility-administered medications for this visit. PAST MEDICAL HISTORY Diagnosis Date Arrhythmia Diabetes mellitus (HCC) Essential hypertension PAST SURGICAL HISTORY Procedure Laterality Date NON-MELANOMA SKIN CANCER TUMOR BOARD [facility] 10/2021 REMV CATARACT EXTRACAP,INSERT LENS Bilateral 06/2021 REPAIR INCISIONAL HERNIA,REDUCIBLE 2008 SHOULDER SURGERY HX Left BP 99/64 Pulse 96 Ht 5' 10.512 (1.79m) Wt 186 lb (84.4kg) BMI 26.30 kg/(m2). Review of Systems Ortho Exam Alert and Oriented x 3. NAD LEFT SHOULDER EXAM: Examination of the left shoulder demonstrates a healed incision. There is mild swelling and ecchymosis about the arm which is appropriate given the recent surgery. There is no erythema, drainage, streaking or concern for infection. Shoulder stable on exam. PROM 90/30/30. Active range of motion and strength testing was not performed. Normal ROM of elbow, wrist, and hand. NVI. RADIOLOGIC EXAM: Postoperative xrays of the patient's left shoulder were taken and personally reviewed with the patient in great detail today. These xrays demonstrate a reverse total shoulder arthroplasty in excellent position. The glenosphere is securely seated with no evidence of radiographic loosening. There are no fractures noted along the glenoid vault. The humeral component is well seated and in good position. There are no signs of a pending acromial stress fracture. There is no evidence of polyethylene failure. Encounter Diagnosis ICD-10-CM 1. 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 XR SHOULDER LIMITED 2V AP/TRUE AP LEFT CONSULT TO PT/OT CANCELED: XR WRIST 2V AP/LAT LEFT 2. Status post reverse arthroplasty of left shoulder Z96.612 CONSULT TO PT/OT PLAN: I spoke with the patient regarding his surgery. Today's xray images were reviewed with the patient and all relevant anatomy and/or procedures were described and explained to the patient in detail. Xrays show an reverse left total shoulder arthroplasty in excellent position with no signs of hardware loosening or infection. The patient may discontinue the sling and use it only for comfort, as needed. The patient will continue to work on daily ROM exercises to the elbow, wrist, hand and fingers as demonstrated. With regard to the shoulder, passive ROM in the supine position was explained and demonstrated for the patient today. The patient will begin formal physical therapy promptly and a PT prescription was given outlining the patients limitations, restrictions and post (more content not included)... Normal [facility] Absolute lymphocyte counton 03-18-2022 Lymphocytes Auto (Unsp spec) [#/Vol] 0.90 10*3/uL 0.83-4.51 [facility] Work Phone: Basophil percentageon 2021 Basophils/100 WBC (Bld) 0.6 % 0-1 [facility] Work Phone: Chloride [Moles/Vol] 104 mmol/L 98-107 [facility]: Eosinophils/100 WBC (Bld) 2.3 % 0-5 [facility] Work Phone: Glucose [Mass/Vol] 117 mg/dL 74-106 [facility] Work Phone: Comment on above: Fasting Glucose resu lt from 100 to 125 mg/dL suggests IMPAIRED HOMEOSTASIS per A.D.A. criteria. Neutrophils (Bld) [#/Vol] 3.2 10*3/uL 2.0-7.7 [facility] Work Phone: Neutrophils/100 WBC (Bld) 67.7 % 47-70 [facility] Work Phone: Potassium [Moles/Vol] 3.5 mmol/L 3.5-5.1 [facility] Work Phone: Sodium [Moles/Vol] 138 mmol/L 136-145 [facility] Work Phone: WBC (Bld) [#/Vol] 4.7 10*3/uL 4.4-11.0 [facility] Work Phone: Blood erythrocytes count (nu mber/volume)on 03-18-2022 RBC (Bld) [#/Vol] 4.11 10*6/uL 4.6-6.2 [facility] Work Phone: Blood hemoglobin measurement (mass/volume)on 03-18-2022 Hemoglobin (Bld) [Mass/Vol] 12.1 g/dL 13.0-16.5 [facility] Work Phone: Blood lymphocytes/100 leukoc yteson 03-18-2022 Lymphocytes/100 WBC (Bld) 19.2 % 19-41 [facility] Work Phone: Blood monocytes/100 leukocyt eson 03-18-2022 Monocytes/100 WBC (Bld) 9.8 % 0-10 [facility] Work Phone: Blood platelet mean volumeon 03-18-2022 Platelet mean volume (Bld) [Entitic vol] 10.6 fL 6.2-12.0 [facility] Work Phone: Determination of erythrocyte mean corpuscular volume (MCV)on 03-18-2022 MCV (RBC) [Entitic vol] 93.9 fL 80-94 [facility] Work Phone: Hematocrit Auto (Bld) [Volum e fraction]on 03-18-2022 Hematocrit (Bld) [Volume fraction] 38.6 % 40-54 [facility] Work Phone: Laboratory - Chemistry and C hemistry - challengeon 03-18-2022 CO2 [Moles/Vol] 26.0 mmol/L 21.0-32.0 [facility] Work Phone: Urea nitrogen/Creatinine [Mass ratio] 19.9 mg/mg 10-20 [facility] Work Phone: Laboratory - Hematology and Cell countson 03-18-2022 Erythrocyte distribution width (RBC) [Entitic vol] 54.4 fL 35.1-43.9 [facility] Work Phone: Erythrocyte distribution width (RBC) [Ratio] 15.8 % 11.6-14.6 [facility] Work Phone: Immature granulocytes/100 WBC (Bld) 0.400 % 0.0-0.9 [facility] Work Phone: Comment on above: IG% - Immature Granu locytes (promyelocytes, myelocytes and metamyelocytes) > 1% indicates that a LEFT SHIFT is Present. MCH (RBC) [Entitic mass] 29.4 pg 27.0-32.0 [facility] Work Phone: Nucleated RBC/100 WBC (Bld) [Ratio] 0 % 0-5 [facility] Work Phone: MCHC Auto (RBC) [Mass/Vol]on 03-18-2022 MCHC (RBC) [Mass/Vol] 31.3 g/dL 32-36 [facility] Work Phone: No Panel Informationon 03-18 Estimated GFR (MDRD) Amer 111 mL/min >60 [facility] Work Phone: Comment on above: GFR Calc Estimated GFR (MDRD) Non-Af Amer 92 mL/min >60 [facility] Work Phone: Comment on above: Non- GFR Calc Platelets bldon 03-18-2022 Platelets (Bld) [#/Vol] 257 10*3/uL 150-450 [facility] Work Phone: Serum or plasma calcium aung urement (mass/volume)on 03-18-2022 Calcium [Mass/Vol] 9.0 mg/dL 8.5-10.1 [facility] Work Phone: Serum or plasma creatinine m easurement (mass/volume)on 03-18-2022 Creatinine [Mass/Vol] 0.85 mg/dL 0.70-1.30 [facility] Work Phone: Comment on above: The validity of the calculated GFR & GFRAA in patients over 70 years has not been determined. Clinical correlation is essential. Serum or plasma urea nitroge n measurement (mass/volume)on 03-18-2022 Urea nitrogen [Mass/Vol] 17 mg/dL 7-18 [facility] Work Phone: Thin prep Papanicolaou smear with manual screeningon 03-18-2022 Thin prep Papanicolaou smear with manual screening 8 5-15 [facility] Work Phone: Basophil percentageon 2021 Basophil percentage 0 SEEN /hpf 0-5 [facility] Work Phone: WBC (Bld) [#/Vol] 4.3 10*3/uL 4.4-11.0 [facility] Work Phone: Bilirubin Test strip Ql (U)o n 03-13-2022 Bilirubin Ql (U) Negative Negative [facility] Work Phone: Blood erythrocytes count (nu mber/volume)on 03-13-2022 RBC (Bld) [#/Vol] 3.85 10*6/uL 4.6-6.2 [facility] Work Phone: Blood hemoglobin measurement (mass/volume)on 03-13-2022 Hemoglobin (Bld) [Mass/Vol] 11.7 g/dL 13.0-16.5 [facility] Work Phone: Blood platelet mean volumeon 03-13-2022 Platelet mean volume (Bld) [Entitic vol] 10.1 fL 6.2-12.0 [facility] Work Phone: Determination of erythrocyte mean corpuscular volume (MCV)on 03-13-2022 MCV (RBC) [Entitic vol] 95.3 fL 80-94 [facility] Work Phone: Hematocrit Auto (Bld) [Volum e fraction]on 03-13-2022 Hematocrit (Bld) [Volume fraction] 36.7 % 40-54 [facility] Work Phone: Ketones Test strip Ql (U)on 03-13-2022 Ketones Ql (U) Negative Negative [facility] Work Phone: Laboratory - Hematology and Cell countson 03-13-2022 Erythrocyte distribution width (RBC) [Entitic vol] 55.1 fL 35.1-43.9 [facility] Work Phone: Erythrocyte distribution width (RBC) [Ratio] 15.8 % 11.6-14.6 [facility] Work Phone: MCH (RBC) [Entitic mass] 30.4 pg 27.0-32.0 [facility] Work Phone: MCHC Auto (RBC) [Mass/Vol]on 03-13-2022 MCHC (RBC) [Mass/Vol] 31.9 g/dL 32-36 [facility] Work Phone: Mucus LM Ql (Urine sed)on Mucus Ql (Urine sed) 0 SEEN /hpf [facility] Work Phone: Nitrite Test strip Ql (U)on 03-13-2022 Nitrite Ql (U) Negative Negative [facility] Work Phone: Platelets bldon 03-13-2022 Platelets (Bld) [#/Vol] 267 10*3/uL 150-450 [facility] Work Phone: Protein Test strip Ql (U)on 03-13-2022 Protein Ql (U) Negative Negative [facility] Work Phone: Squamous epithelial cells de tection in urine sediment by light microscopyon 03-13-2022 Epithelial cells.squamous LM Ql (Urine sed) 0 SEEN /hpf 0-5 [facility] Work Phone: Urine blood detectionon RBC Ql (U) Negative Negative [facility] Work Phone: RBC Ql (U) 0 SEEN /hpf 0-5 [facility] Work Phone: Urine clarityon 03-13-2022 Clarity (U) Clear Clear [facility] Work Phone: Urine color determinationon 03-13-2022 Color (U) Yellow Yellow [facility] Work Phone: Urine glucose detectionon Glucose Ql (U) Normal mg/dl Normal [facility] Work Phone: Urine leukocyte esterase det ection by dipstickon 03-13-2022 Leukocyte esterase Test strip Ql (U) 25 /ul Negative [facility] [facility] Work Phone: Urine pHon 03-13-2022 pH (U) 7.0 [pH] 5.0 - 8.0 [facility] Work Phone: Urine sediment bacteria coun t by microscopy (number/high power field)on 03-13-2022 Bacteria LM.HPF (Urine sed) [#/Area] 0 /[HPF] None Seen [facility] Work Phone: Urine specific gravity measu rementon 03-13-2022 Specific gravity (U) [Rel density] 1.010 1.002-1.030 [facility] Work Phone: Urobilinogen Auto test strip Ql (U)on 03-13-2022 Urobilinogen Ql (U) Normal mg/dl Normal [facility] Work Phone: Basophil percentageon 2021 Chloride [Moles/Vol] 105 mmol/L 98-[address] [facility] [address] [facility] Work Phone: Glucose [Mass/Vol] 102 mg/dL 74-106 [facility] Work Phone: Comment on above: Fasting Glucose resu lt from 100 to 125 mg/dL suggests IMPAIRED HOMEOSTASIS per A.D.A. criteria. Potassium [Moles/Vol] 4.0 mmol/L 3.5-5.1 [facility] Work Phone: Sodium [Moles/Vol] 138 mmol/L 136-145 [facility] Work Phone: Laboratory - Chemistry and C hemistry - challengeon 03-11-2022 CO2 [Moles/Vol] 26.0 mmol/L 21.0-32.0 [facility] Work Phone: Urea nitrogen/Creatinine [Mass ratio] 25.5 mg/mg 02-28 [facility] Work Phone: No Panel Informationon 03-11 Estimated Creatinine Clearance Calc 62.86 ml/min [facility] Work Phone: Estimated GFR (MDRD) Amer 123 mL/min >60 [facility] Work Phone: Comment on above: GFR Calc Estimated GFR (MDRD) Non-Af Amer 102 mL/min >60 [facility] Work Phone: Comment on above: Non- GFR Calc Serum or plasma albumin aung urement (mass/volume)on 03-11-2022 Albumin [Mass/Vol] 2.5 g/dL 3.2-5.0 [facility] Work Phone: Serum or plasma calcium aung urement (mass/volume)on 03-11-2022 Calcium [Mass/Vol] 9.5 mg/dL 8.5-10.1 [facility] Work Phone: Serum or plasma creatinine m easurement (mass/volume)on 03-11-2022 Creatinine [Mass/Vol] 0.78 mg/dL 0.70-1.30 [facility] Work Phone: Comment on above: The validity of the calculated GFR & GFRAA in patients over 70 years has not been determined. Clinical correlation is essential. Serum or plasma urea nitroge n measurement (mass/volume)on 03-11-2022 Urea nitrogen [Mass/Vol] 20 mg/dL 7-18 [facility] Work Phone: Thin prep Papanicolaou smear with manual screeningon 03-11-2022 Thin prep Papanicolaou smear with manual screening 7 5-15 [facility] Work Phone: [phone] Absolute lymphocyte counton 03-10-2022 Lymphocytes Auto (Unsp spec) [#/Vol] 0.95 10*3/uL 0.83-4.51 [facility] Work Phone: [phone] Basophil percentageon 2021 Basophils/100 WBC (Bld) 0.8 % 0-1 [facility] Work Phone: [phone] Eosinophils/100 WBC (Bld) 3.6 % 0-5 [facility] Work Phone: Neutrophils (Bld) [#/Vol] 2.3 10*3/uL 2.0-7.7 [facility] Work Phone: [phone] Neutrophils/100 WBC (Bld) 58.9 % 47-70 [facility] Work Phone: Blood lymphocytes/100 leukoc yteson 03-10-2022 Lymphocytes/100 WBC (Bld) 24.2 % 19-41 [facility] Work Phone: [phone] Blood monocytes/100 leukocyt eson 03-10-2022 Monocytes/100 WBC (Bld) 11.7 % 0-10 [facility] Work Phone: [phone] Laboratory - Hematology and Cell countson 03-10-2022 Immature granulocytes/100 WBC (Bld) 0.800 % 0.0-0.9 [facility] Work Phone: [phone] Comment on above: IG% - Immature Granu locytes (promyelocytes, myelocytes and metamyelocytes) > 1% indicates that a LEFT SHIFT is Present. Nucleated RBC/100 WBC (Bld) [Ratio] 0 % 0-5 [facility] Work Phone: Laboratory - Chemistry and C hemistry - challengeon 03-04-2022 Magnesium [Mass/Vol] 2.1 mg/dL 1.6-2.6 [facility] Work Phone: Glucose Glucometer (BldC) [M ass/Vol]on 02-25-2022 Glucose [Mass/Vol] 98 mg/dL 74-106 [facility] Work Phone: Comment on above: MANAGEMENT OF PATIEN T CARE PER NURSING PROTOCOL Basophil percentageon 2021 Basophil percentage 3.2 mg/dL 2.5-4.9 [facility] Work Phone: Bilirubin [Mass/Vol] 0.70 mg/dL 0.20-1.00 [facility] Work Phone: Comment on above: For patients on eltr ombopag therapy, use of Dimension [place] TBIL is not recommended. Protein [Mass/Vol] 5.8 g/dL 6.4-8.2 [facility] Work Phone: CNPNon 02-20-2022 CNPN Telephone (ORUPDO) MIRI CAI ([id number]) 1945 M Date Time Provider Department 02/20/22 CARSON BULLOCK III During your visit today, we recorded the following information about you: Kerri Armstrongdebbi 02/20/2022 12:50 PM Signed HE IS AT [facility] FOLLOWING A STROKE AND IS ADMITTED TO REHAB. NEED TO KNOW WHEN SURGICAL DRESSING CAN BE REMOVED, FANY/SUTURE REMOVAL AND WHAT THERAPY IS ALLOWED. ALSO NEED TO KNOW IF SLING IS WORN ALL OF THE TIME. THANKS, KERRI Nam PA-C 02/21/2022 2:01 PM Signed Left R TSA. 02/06/22 Dressing and sutures (if any) can come out 2 weeks after surgery. He can start PT/OT now. Please fax over [facility] Protocol sheet. He is able to shower. No submerging incision. Sling is for comfort only at this point. LUIS FELIPE Modi 02/21/2022 3:27 PM Signed [facility] called checking on this. I advised of below, She is requesting protocol be faxed to [phone] If there is any other concerns [facility] can be reached by phone at [phone] Sadie Bowles Kerri Abraham 02/21/2022 3:30 PM Signed Patient had left shoulder RTSA two weeks post op need to fax post operative therapy order to where he is staying. Are you able to start order. Thanks. Kerri Bowles 02/22/2022 9:23 AM Signed [facility] called still has not received fax from our office on protocol. Sadie Fox MA 02/22/2022 9:28 AM Signed Will get this protocol faxed today. MONROE Luna MA 02/22/2022 9:43 AM Signed Faxed successfully. MONROE Luna III, DO 02/22/2022 4:33 PM Signed Spoke directly with Deloris today and answered all her questions and confirmed my protocol. Thanks. DO Sadie Candelario III 03/18/2022 1:27 PM Signed Jocelyne at [facility] called asking for xray order to be faxed to [phone]. This patient is mechanical life. Appointment in office is for . Sadie Fox MA 03/19/2022 10:28 AM Signed Order has been successfully faxed to number below. MONROE Luna III, DO 03/19/2022 2:16 PM Signed Thanks Team. Carson Bullock III, DO Allergies As of Date: 02/20/2022 (No Known Allergies) Date Reviewed: 02/19/2022 Reviewed by: Ellen Bowling RN - Fully Assessed Reason for Visit: Orders [681] Prescriptions as of 03/19/2022 - acetaminophen (TYLENOL) 325 mg tablet 2 tablets by ORAL/FEEDING TUBE route every 4 hours as needed for pain. - atorvastatin (LIPITOR) 80 mg tablet 1 tablet by ORAL/FEEDING TUBE route daily at bedtime. - tamsulosin (FLOMAX) 0.4 mg Take 1 capsule by mouth once daily. - metoprolol tartrate, short acting, (LOPRESSOR) 50 mg tablet 1 tablet by ORAL/FEEDING TUBE route every 12 hours. - clopidogrel (PLAVIX) 75 mg tablet 1 tablet by ORAL/FEEDING TUBE route once daily. - potassium chloride (KLOR-CON) 20 mEq packet Take 40 mEq by mouth once daily. - vit A/C/E ac/ZnOx/cupric oxide (EYE VITAMIN AND MINERALS ORAL) Take 1 capsule by mouth once daily. Vision Essential - ELIQUIS 5 mg tab(s) Take 5 mg by mouth twice daily. Meds Comments as of 02/08/2022: 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) Problem List As Of Date 02/20/2022 Noted Resolved Acute ischemic left MCA stroke (HCC) [I63.512] 02/07/2022 02/19/2022 Occlusion of middle cerebral artery, left [I66.*02/07/2022 Hx of atrial flutter [Z86.79] 02/07/2022 Atrial flutter with rapid ventricular response *02/07/2022 ICAO (internal carotid artery occlusion), left *02/07/2022 Status post reverse total replacement of left s*02/07/2022 Type 2 diabetes mellitus without complication, *02/07/2022 HTN (hypertension) [I10] 02/07/2022 HLD (hyperlipidemia) [E78.5] 02/07/2022 Urinary retention [R33.9] 02/10/2022 02/19/2022 Encounter Status:Closed by KERRI ABRAHAM on 03/01/22 Normal [facility] Laboratory - Chemistry and C hemistry - challengeon 02-20-2022 ALP [Catalytic activity/Vol] 80 U/L 45-117 [facility] Work Phone: ALT [Catalytic activity/Vol] 33 U/L 16-61 [facility] Work Phone: Globulin (S) [Mass/Vol] 3.8 g/dL 2.2-4.2 [facility] Work Phone: Serum or plasma albumin/glob ulin mass ratioon 02-20-2022 Albumin/Globulin [Mass ratio] 0.5 {ratio} 0.9-2.4 [facility] Work Phone: Thin prep Papanicolaou smear with manual screeningon 02-20-2022 Thin prep Papanicolaou smear with manual screening 29 U/L 15-37 [facility] Work Phone: Basic metabolic 2000 panelon 02-19-2022 Anion gap [Moles/Vol] 11 mmol/L Normal 9-18 [facility] Comment on above: Order Comment: Speci men Type: BLOOD SPECIMENOrdering Facility: [facility] Address: [address] [place] [address] Performed By: #### 2 4321-2 ####[facility] LABORATORYCLIA [id number] [place] [address] [place] Calcium [Mass/Vol] 8.8 mg/dL Normal 8.5-10.2 [facility] Comment on above: Order Comment: Speci men Type: BLOOD SPECIMENOrdering Facility: [facility] Address: [address] [place] [address] Performed By: #### 2 4321-2 ####[facility] LABORATORYCLIA [id number] [place] [address] [place] Chloride [Moles/Vol] 104 mmol/L Normal 97-105 [facility] Comment on above: Order Comment: Speci men Type: BLOOD SPECIMENOrdering Facility: [facility] Address: [address] [place] [address] Performed By: #### 2 4321-2 ####[facility] LABORATORYCLIA [id number] [place] [address] [place] CO2 [Moles/Vol] 23 mmol/L Normal 22-30 [facility] Comment on above: Order Comment: Speci men Type: BLOOD SPECIMENOrdering Facility: [facility] Address: [address] [place] [address] Performed By: #### 2 4321-2 ####[facility] [id number] [address] [place] Creatinine [Mass/Vol] 0.68 mg/dL Low 0.73-1.22 [facility] Comment on above: Order Comment: Speci men Type: BLOOD SPECIMENOrdering Facility: [facility] Address: [address] [place] [address] Performed By: #### 2 4321-2 ####[facility]ITAL[facility] [id number] [address] ESTIMATED GLOMERULAR FILTRATION RATE 95 mL/min/1.73m??? Normal >=60 [facility] Comment on above: Order Comment: Suzanne rivera Type: BLOOD SPECIMENOrdering Facility: [facility] Address: [address] [place] [address] Result Comment: Ethan mated Glomerular Filtration Rate (eGFR) is calculated using the 2020 CKD-EPI creatinine equation. This equation utilizes serum creatinine, sex, and age as parameters. The creatinine assay has traceable calibration to isotope dilution-mass spectrometry. Refer to KDIGO guidelines for clinical interpretation. In patients with unstable renal function, e.g. those with acute kidney injury, the eGFR may not accurately reflect actual GFR. Performed By: #### 2 4321-2 ####[facility] LABORATORYIA [id number] [address] [place] Glucose [Mass/Vol] 106 mg/dL High 74-99 [facility] Comment on above: Order Comment: Suzanne rivera Type: BLOOD SPECIMENOrdering Facility: [facility] Address: [address] [place] [address] Result Comment: The [place] Diabetes Association (ADA) provides guidance for cutoff values for fasting glucose and random glucose. The ADA defines fasting as no caloric intake for at least 8 hours. Fasting plasma glucose results between 100 to 125 mg/dL indicate increased risk for diabetes (prediabetes). Fasting plasma glucose results greater than or equal to 126 mg/dL meet the criteria for diagnosis of diabetes. In the absence of unequivocal hyperglycemia, results should be confirmed by repeat testing. In a patient with classic symptoms of hyperglycemia or hyperglycemic crisis, random plasma glucose results greater than or equal to 200 mg/dL meet the criteria for diagnosis of diabetes. Reference: Standards of Medical Care in Diabetes 2016, [place] [employer]. Diabetes Care. 2016.39(Suppl 1). Performed By: #### 2 4321-2 ####[facility] LABORATORYCLIA [id number] [address] STATES OF [facility] Potassium [Moles/Vol] 4.1 mmol/L Normal 3.7-5.1 [facility] Comment on above: Order Comment: Speci men Type: BLOOD SPECIMENOrdering Facility: [facility] Address: [address] [place] [address] Performed By: #### 2 4321-2 ####[facility] LABORATORYCLIA [id number] [address] STATES [facility] Sodium [Moles/Vol] 138 mmol/L Normal 136-144 [facility] Comment on above: Order Comment: Parveeni miguel Type: BLOOD SPECIMENOrdering Facility: [facility] Address: [address] [place] [address] Performed By: #### 2 4321-2 ####[facility] LABORATORYCLIA [id number] [address] STATES [facility] Urea nitrogen [Mass/Vol] 19 mg/dL Normal 9-24 [facility] Comment on above: Order Comment: Speci men Type: BLOOD SPECIMENOrdering Facility: [facility] Address: [address] [place] [address] Performed By: #### 2 4321-2 ####[facility] LABORATORYCLIA [id number] [address] [place] CNDSon 02-19-2022 CNDS HNO ID: [id number] Author: Faisal Crews MD Service: Hospital Medicine Author Type: Physician Type: Discharge Summary Filed: 02/19/2022 9:02 AM Note Text: DISCHARGE SUMMARY PATIENT NAME: Miri Cai ADMISSION DATE: 02/07/2022 DISCHARGE DATE: 02/19/2022 Attending Physician: Faisal Crews MD Code Status: Not on file Highest Readmission Risk Score: 24 The 30 day readmissions risk score is derived from an internally validated risk model which evaluates patient level characteristics, utilization history, medication orders and lab results up until the day of discharge. Patients with a score of 40 or above are considered highest risk for readmission. Specific patient level drivers will be listed at the bottom of the summary. Reason for Hospitalization: Stroke Diagnosis: Principal Problem (Resolved): Acute ischemic left MCA stroke (HCC) POA: Unknown Active Problems: Occlusion of middle cerebral artery, left POA: Unknown Hx of atrial flutter POA: Unknown Atrial flutter with rapid ventricular response (HCC) POA: Unknown ICAO (internal carotid artery occlusion), left POA: Unknown Status post reverse total replacement of left shoulder POA: Unknown Type 2 diabetes mellitus without complication, without long-term current use of insulin (HCC) POA: Unknown HTN (hypertension) POA: Unknown HLD (hyperlipidemia) POA: Unknown Resolved Problems: Urinary retention POA: Unknown Hospital Course as Described to the Patient: You were admitted for Stroke. 76 YOM with PMH afib, HTN, HLD, ICA occlusion who presented with acute left MCA stroke thought to be cardioembolic. He underwent tPA administration and NIL x1. He was started on plavix and low dose eliquis. Seen by PT/OT, recommended acute rehab. Course c/b left shoulder dislocation s/p left SA. Non-weight bearing per ortho and outpatient follow up with Dr. Bullock. He had some urinary retention which resolved with flomax. One episode afib RVR, metoprolol increased with good control of his rates. Transitions of Care Critical Issues: SPECIALIST FOLLOW-UP: Ortho, neuro [place] MEDICATION CHANGES: See MAR LABS AND PROCEDURES PENDING AT DISCHARGE: Test Results Not Yet Available from This Hospitalization: Please Review at Your Follow Up Appointment Order Current Status LAB EXTRA TUBES In process LAVENDER TOP EXTRA TUBE In process No pending results. Additional Provider to Provider Information: Acute left MCA stroke, cardioembolic: tPA left MCA thrombectomy and left ICA stenting complicated by reocclusion: continue Eliquis and Plavix. Aspirin stopped. Continue statin. Planning for SNF Atrial fibrillation with RVR: increased metoprolol to 50 twice daily. Cont eliquis. Monitor on telemetry Diabetes mellitus: SSI Hypertension: metoprolol Hyperlipidemia: statin Recent left total shoulder replacement: Nonweightbearing while admitted, advance in outpatient setting. Follow-up with Ortho as outpatient Operations During Hospitalization: None Procedures During Hospitalization: EKG MRI Echocardiogram CT Scan Consulting Teams During Hospitalization: Treatment Team: Attending Provider: Faisal Crews MD Consulting: Roby Alexander MD Consulting: Bay Astudillo MD Consulting: Diaz Aponte MD Primary Service: Marek Rosen Patient Condition @ Discharge: Stable Discharge Disposition: [facility] - NAD, Calm CV - irregular RESP - CTA B/L ABD - soft, NT, ND +BS EXT - no edema NEURO - right arm flaccid paralysis, right leg with slight movement unable to bend knee Information Provided to Patient: WRITTEN Stroke Material Given Addressing: Signs and Symptoms of a Stroke, When to Call 911, Modifiable Risk Factors, Need for Follow-Up After Discharge, Medication Compliance and Smoking Cessation Advice Diet: Resume pre-hospital diet Activity: Resume pre-hospital activity Non weight bearing LUE Wound/Surgical Site Care: ALLERGIES No Known Allergies Discharge Medications: Current Discharge Medication List CONTINUE these medications which have NOT CHANGED MULTIVITAMIN ORAL Take by mouth as directed. magnesium carb,citrate,oxide (MAGNESIUM COMPLEX ORAL) 2 capsules Take 2 capsules by mouth twice daily. Saccharomyces boulardii (FLORASTOR) 250 mg Take 250 mg by mouth once daily. vit A/C/E ac/ZnOx/cupric oxide (EYE VITAMIN AND MINERALS ORAL) 1 capsule Take 1 capsule by mouth once daily. class=HTML_HHS> Vision Essential Cholesterol Control,High AND Low 1 capsule 1 capsule once daily. THYROID ORAL 1 capsule Take 1 capsule by mouth twice daily. class=HTML_HHS> Thyroid Support mv-min/FA/D3/om-3/dha /epa/fish (ADULT MULTI PLUS OMEGA-3 ORAL) 1 capsule Take 1 capsule by mouth once daily. class=HTML_HHS> omega Q Plus cartilage/collagen/radha r/hyalur (JOINT HEALTH ORAL) 1 capsule Take 1 capsule by mouth twice daily. class=HTML_HHS> Benefle (more content not included)... Normal [facility] NURSING PROGon 02-19-2022 NURSING PROG HNO ID: [id number] Author: Ellen Bowling, RN Service: Nursing Author Type: Registered Nurse Type: Nursing Progress Note Filed: 02/19/2022 12:19 PM Note Text: [facility] questions. Patient packed up and ready to go for transportation to rehab. Normal [facility] Basic metabolic 2000 panelon 02-18-2022 Anion gap [Moles/Vol] 10 mmol/L Normal 9-18 [facility] Comment on above: Order Comment: Speci men Type: BLOOD SPECIMENOrdering Facility: [facility] Address: [address] [place] [address] Performed By: #### 2 4320-2, ####[facility] LABORATORYCLIA [id number] [place] [address] [place] Calcium [Mass/Vol] 8.4 mg/dL Low 8.5-10.2 [facility] Comment on above: Order Comment: Speci men Type: BLOOD SPECIMENOrdering Facility: [facility] Address: [address] [place] [address] Performed By: #### 2 2, ####[facility] LABORATORYCLIA [id number] [place] [address] [place] Chloride [Moles/Vol] 106 mmol/L High 97-105 [facility] Comment on above: Order Comment: Speci men Type: BLOOD SPECIMENOrdering Facility: [facility] Address: [address] [address] Performed By: #### 2 2, ####[facility] LABORATORYCLIA [id number] [place] [address] [place] CO2 [Moles/Vol] 23 mmol/L Normal 22-30 [facility] Comment on above: Order Comment: Speci men Type: BLOOD SPECIMENOrdering Facility: [facility] Address: [address] [address] Performed By: #### 2 4321-2, ####[facility] LABORATORYCLIA [id number] [place] [address] [place] Creatinine [Mass/Vol] 0.70 mg/dL Low 0.73-1.22 [facility] Comment on above: Order Comment: Specharjit rivera Type: BLOOD SPECIMENOrdering Facility: [facility] Address: [address] [place], [place] [address] Performed By: #### 2 432-2, ####[facility] LABORATORYCLIA [id number] [place] [address] [place] ESTIMATED GLOMERULAR FILTRATION RATE 94 mL/min/1.73m??? Normal >=60 [facility] Comment on above: Order Comment: Suzanne rivera Type: BLOOD SPECIMENOrdering Facility: [facility] Address: [address] [place] [address] Result Comment: Ethan mated Glomerular Filtration Rate (eGFR) is calculated using the 2020 CKD-EPI creatinine equation. This equation utilizes serum creatinine, sex, and age as parameters. The creatinine assay has traceable calibration to isotope dilution-mass spectrometry. Refer to KDIGO guidelines for clinical interpretation. In patients with unstable renal function, e.g. those with acute kidney injury, the eGFR may not accurately reflect actual GFR. Performed By: #### 2 4321-2, 06562-2 ####[facility] LABORATORYCLIA [id number] [place] [address] [place] Glucose [Mass/Vol] 112 mg/dL High 74-99 [facility] Comment on above: Order Comment: Suzanne miguel Type: BLOOD SPECIMENOrdering Facility: [facility] Address: [address] [place] [address] Result Comment: The [place] Diabetes Association (ADA) provides guidance for cutoff values for fasting glucose and random glucose. The ADA defines fasting as no caloric intake for at least 8 hours. Fasting plasma glucose results between 100 to 125 mg/dL indicate increased risk for diabetes (prediabetes). Fasting plasma glucose results greater than or equal to 126 mg/dL meet the criteria for diagnosis of diabetes. In the absence of unequivocal hyperglycemia, results should be confirmed by repeat testing. In a patient with classic symptoms of hyperglycemia or hyperglycemic crisis, random plasma glucose results greater than or equal to 200 mg/dL meet the criteria for diagnosis of diabetes. Reference: Standards of Medical Care in Diabetes 2016, [place] [employer]. Diabetes Care. 2016.39(Suppl 1). Performed By: #### 2 43205-13, ####[facility] LABORATORYCLIA [id number] [address] STATES OF [facility] Potassium [Moles/Vol] 3.7 mmol/L Normal 3.7-5.1 [facility] Comment on above: Order Comment: Parveeni miguel Type: BLOOD SPECIMENOrdering Facility: [facility] Address: [address] [place] [address] Performed By: #### 2 4320-06, ####[facility] [id number] [address] Sodium [Moles/Vol] 139 mmol/L Normal 136-144 [facility] Comment on above: Order Comment: [facility]i [facility] Type: BLOOD SPECIMENOrdering Facility: [facility] Address: [address] [place] [address] Performed By: #### 2 4320-06, ####[facility] [id number] [address] Urea nitrogen [Mass/Vol] 19 mg/dL Normal 9-24 [facility] Comment on above: Order Comment: Speci men Type: BLOOD SPECIMENOrdering Facility: [facility] Address: [address] [place] [address] Performed By: #### 2 4320-06, ####[facility]ORATORYCLIA [id number] [address] OF [facility] CBC panel Auto (Bld)on 02-18 Erythrocyte distribution width (RBC) [Ratio] 14.7 % Normal 11.5-15.0 [facility] Comment on above: Order Comment: Speci men Type: BLOOD SPECIMENOrdering Facility: [facility] Address: [address] [place] [address] Performed By: #### 5 8410-2 ####[facility] LABORATORYCLIA [id number] [address] Hematocrit (Bld) [Volume fraction] 25.0 % Low 39.0-51.0 [facility] Comment on above: Order Comment: Speci men Type: BLOOD SPECIMENOrdering Facility: [facility] Address: [address] [place] [address] Performed By: #### 5 8410-2 ####[facility] LABORATORYCLIA [id number] [address] OF [facility] Hemoglobin (Bld) [Mass/Vol] 8.0 g/dL Low 13.0-17.0 [facility] Comment on above: Order Comment: Speci men Type: BLOOD SPECIMENOrdering Facility: [facility] Address: [address] [place] [address] Performed By: #### 5 8410-2 ####[facility] LABORATORYCLIA [id number] [address] OF [facility] MCH (RBC) [Entitic mass] 30.5 pg Normal 26.0-34.0 [facility] Comment on above: Order Comment: Speci men Type: BLOOD SPECIMENOrdering Facility: [facility] Address: [address] [place] [address] Performed By: #### 5 8410-2 ####[facility] LABORATORYCLIA [id number] [address] [place] MCHC (RBC) [Mass/Vol] 32.0 g/dL Normal 30.5-36.0 [facility] Comment on above: Order Comment: Speci men Type: BLOOD SPECIMENOrdering Facility: [facility] Address: [address] [place] [address] Performed By: #### 5 8410-2 ####[facility] LABORATORYCLIA [id number] [address] OF [facility] MCV (RBC) [Entitic vol] 95.4 fL Normal 80.0-100.0 [facility] Comment on above: Order Comment: Speci men Type: BLOOD SPECIMENOrdering Facility: [facility] Address: [address] [place] [address] Performed By: #### 5 8410-2 ####[facility] LABORATORYCLIA [id number] [address] Nucleated RBC (Bld) [#/Vol] 10*3/uL Normal <0.01 [facility] Comment on above: Order Comment: Speci men Type: BLOOD SPECIMENOrdering Facility: [facility] Address: [address] [place] [address] Performed By: #### 5 8410-2 ####[facility] LABORATORYCLIA [id number] [address] OF [facility] Platelet mean volume (Bld) [Entitic vol] 10.2 fL Normal 9.0-12.7 [facility] Comment on above: Order Comment: Speci men Type: BLOOD SPECIMENOrdering Facility: [facility] Address: [address] [place] [address] Performed By: #### 5 8410-2 ####[facility] LABORATORYCLIA [id number] [address] Platelets (Bld) [#/Vol] 331 10*3/uL Normal 150-400 [facility] Comment on above: Order Comment: Speci men Type: BLOOD SPECIMENOrdering Facility: [facility] Address: [address] [place] [address] Performed By: #### 5 8410-2 ####[facility] LABORATORYCLIA [id number] [address] RBC (Bld) [#/Vol] 2.62 10*6/uL Low 4.20-6.00 [facility] Comment on above: Order Comment: Speci men Type: BLOOD SPECIMENOrdering Facility: [facility] Address: [address] [place] [address] Performed By: #### 5 8410-2 ####[facility] LABORATORYCLIA [id number] [address] WBC (Bld) [#/Vol] 7.25 10*3/uL Normal 3.70-11.00 [facility] Comment on above: Order Comment: Speci men Type: BLOOD SPECIMENOrdering Facility: [facility] Address: [address] [place] [id number] Performed By: #### 5 8410-2 ####[facility] LABORATORYCLIA [id number] [place] [id number] [facility] CONSULT PROGon 02-18-2022 CONSULT PROG HNO ID: [id number] Author: Sadie Avendano APRN.CNP Service: Neurology General Author Type: Nurse Practitioner Type: Consult Progress Note Filed: 02/18/2022 12:59 PM Note Text: NEURO STROKE PROGRESS NOTE SERVICE DATE: 02/18/2022 SERVICE TIME: 1209 pm CC: Stroke Subjective INTERVAL HISTORY: No reported issues O/N. Pt resting in bed. No visitors present at bedside. Pt has no complaints. Test results and POC reviewed with pt. All questions addressed to his satisfaction. MEDICATIONS Current Facility-Administered Medications Medication Dose Route Frequency NaCl 0.9% iv flush bag 20 mL INTRAVENOUS PRN sodium chloride 0.9 % (flush) 3-5 mL (BD POSIFLUSH) 3-5 mL INTRAVENOUS q 12 H atorvastatin 80 mg tab(s) (LIPITOR) 80 mg ORAL/FEEDING TUBE AT BEDTIME acetaminophen 650 mg tab(s) (TYLENOL) 650 mg ORAL/FEEDING TUBE q 4 H PRN clopidogrel 75 mg tab(s) (PLAVIX) 75 mg ORAL/FEEDING TUBE DAILY dextrose 15 gram/32 mL 15 g (TRUEPLUS) 15 g ORAL PRN Or glucagon 1 mg injection 1 mg INTRAMUSCULAR PRN Or dextrose 10% iv bolus 12.5 g INTRAVENOUS PRN insulin lispro injection (rapid acting) (ADMELOG) SUBCUTANEOUS w MEALS AND HS tamsulosin 0.4 mg cap(s) (FLOMAX) 0.4 mg ORAL DAILY potassium chloride 40 mEq oral powder (KLOR-CON) 40 mEq ORAL DAILY metoprolol tartrate (short acting) 50 mg tab(s) (LOPRESSOR) 50 mg ORAL/FEEDING TUBE q 12 H apixaban 5 mg tab(s) (ELIQUIS) 5 mg ORAL BID Objective PHYSICAL EXAM Vital Signs: BP 114/61 Pulse 86 Temp 36.4 ?C (97.5 ?F) (Axillary) Resp 18 Ht 179.1 cm (5' 10.5) Wt 84.6 kg (186 lb 8.2 oz) SpO2 95% BMI 26.38 kg/m? NEUROLOGICAL: LOC: 0 - alert and responsive 0 LOC Questions: 0 - both correct 0 LOC Commands: 0 - both correct 0 Best Gaze: 0 - normal gaze 0 Visual: 0 - no visual loss 0 Facial Palsy: 1 - minor paralysis (normal looking face, asymmetric smile) 1 Motor Left Arm: 1 - drift but does not hit bed 1 Motor Right Arm: 4 - no movement at all 4 Motor Left Le - drift but does not hit bed 1 Motor Right Le - some antigravity effort but cannot sustain 2 Limb Ataxia: 0 - no ataxia (or aphasic, hemiplegic) 0 Sensory: 1 - mild to moderate unilateral loss but patient aware of touch (or aphasic, confused) 1 Best Language: 2 - severe aphasia (almost no information exchanged) 2 Dysarthria: 0 - normal 0 Extinction and Inattention: 0 - normal, none detected (or visual loss alone) 0 Daily NIHSS Score: 12 (02/18/22 1209 : Sadie Avendano APRN.SHORE MAN) 12 Alert and oriented to person, place, month + exp aphasia +right facial droop PERRL EOMI VFF Right hemiparesis RUE 0/5 RLE -3/5 LUE/LE 3/5 Decreased sensation on the right DATA: Diagnostic tests reviewed for today's visit: Lipids, HbA1c, Most recent labs and imaging results. MEDICAL EVENTS: No medical events have been recorded. STROKE 9 CARE AND PREVENTION CHECKLIST 1. Is the patient currently on an ANTITHROMBOTIC medication (Antiplatelet or Anticoagulant): Clopidogrel;Apixiban 2. Does the patient have known AFIB/FLUTTER: Other/unspecified atrial flutter Is the patient currently on anticoagulation: No 3. Is the patient on a STATIN: Atorvastatin 80 mg 4. Is the patient on VTE prophylaxis: Mechanical prophylaxis;Pharmacol ogical prophylaxis Mechanical intervention type: Intermittent compression stocking(s) 5. GLYCEMIC Control Medications: BG well controlled 6. Stroke BP Goals: SBP <140 Stroke BP Control: BP needs further management 7. Stroke IVF/Nutrition: Diet 8. TEMPERATURE Control: Normothermic 9. Does the patient need THERAPY: Yes Therapy involvement: PT;OT;ST Stroke Care and Prevention (personally reviewed by Sadie Avendano APRN.SHORE MAN): Daily Rounding Date: 02/18/22 Daily Rounding Time: 1209 PROBLEM LIST: Principal Problem: Acute ischemic left MCA stroke (HCC) POA: Unknown Active Problems: Occlusion of middle cerebral artery, left POA: Unknown Hx of atrial flutter POA: Unknown Atrial flutter with rapid ventricular response (HCC) POA: Unknown ICAO (internal carotid artery occlusion), left POA: Unknown Status post reverse total replacement of left shoulder POA: Unknown Type 2 diabetes mellitus without complication, without long-term current use of insulin (HCC) POA: Unknown HTN (hypertension) POA: Unknown HLD (hyperlipidemia) POA: Unknown Urinary retention POA: Unknown Resolved Problems: * No resolved hospital problems. * Medication and Non-Pharmacologic VTE Prophylaxis/Anticoagu lants Anticoagulant AND Antiplatelet Medications (From admission, onward) Start Dose Route Frequency Last Action Ordered Stop 02/18/22 2100 apixaban 5 mg tab(s) (ELIQUIS) (apixaban tab(s) (ELIQUIS)) 5 mg ORAL 2 TIMES DAILY Ordered 02/18/22 1231 -- 02/08/22 0900 clopidogrel 75 mg tab(s) (PLAVIX) 75 mg PO/FT DAILY Given, 02/18 0804 02/08/22 0445 -- 02/08/22 0600 activity - mobilize patient ([place]) 02/07/22 0330 vte pharmacologic prophylaxis c (more content not included)... Normal [facility] Magnesium SerPl-mCncon 02-18 Magnesium [Mass/Vol] 2.0 mg/dL Normal 1.7-2.3 [facility] Comment on above: Order Comment: Speci men Type: BLOOD SPECIMENOrdering Facility: [facility] Address: [address] [place] [address] [place] [address] Performed By: #### 2 3563-2, 35574-5 ####[facility] LABORATORYCLIA [id number] [address] OF [facility] NURSING PROGon 02-18-2022 NURSING PROG HNO ID: [id number] Author: Dayanara Pena RN Service: ? Author Type: Registered Nurse Type: Nursing Progress Note Filed: 02/18/2022 6:56 AM Note Text: 0650 notified Jemma RODRIGUEZ of pts recent change in heart rhythm per telemetry monitoring. Pt was NSR. Pt does have hx of afib and is on eliquis Normal [facility] NUTRITIONon 02-18-2022 NUTRITION HNO ID: [id number] Author: Natalee Potts RD Service: Nutrition Therapy Author Type: Registered Dietitian Type: Nutrition Filed: 02/18/2022 12:40 PM Note Text: NUTRITION THERAPY PROGRESS NOTE SERVICE DATE: 02/18/2022 SERVICE TIME: 11:00 AM Nutrition Assessment: Recommended Malnutrition Diagnosis: No Malnutrition Identified (02/08/22 1456 : Joceline Parker RD) Estimated kilocalorie needs: 1675 - 2100 Calorie Calculation Method: 20-25 kcals/kg Estimated protein needs (grams): 84 - 126 Grams protein determined by: 1.0 - 1.5 g/kg Care Plan: Continue current diet (soft and bite sized with NTL) Supplements: Mighty Shake No Sugar Added (continue BID) Monitor and Evaluation: Meet greater than 75% of estimated needs;Monitor bowel function;Monitor fluid/electrolyte balance;Monitor labs, I/Os, vital signs, weight Discharge Recommendations: Diet;Oral Supplements Diet: textures and consistencies per OBSTETRICS SCRUB NURSE Oral Supplements: high calorie and protein supplement per OBSTETRICS SCRUB NURSE approved consistency Interval History: Pt on LOS day 11, last BM recorded on 02/18. Upon RD encounter, patient in NAD. Endorsed a healthy appetite and denied N/V/abd pain. Anthropometrics: Height: 179.1 cm (5' 10.5) (height estimate) Weight: 84.6 kg (186 lb 8.2 oz) Dosing Weight: 83.8 kg (184 lb 11.9 oz) Usual Weight: 83.9 kg (184 lb 15.5 oz) 12/17/21 Usual Weight Obtained From: Chart Review Body mass index is 26.38 kg/m?. Normal (for his age) Weight change percentage over time: stable wt since 12/17/21 Intake History: Current Nutrition Intake: Greater than 75% estimated energy needs Current Intake Over time: (x 10 days, since LOS. Patient endorsed eating most if not all of the food he recieves on his trays.) Diet Orders (From admission, onward) Start Ordered 02/11/22 1430 DIET FOOD CONSISTENCY CONTROLLED START NOW Question Answer Comment Food Consistency SOFT AND BITE-SIZED (L6) Liquid Consistency MILDLY THICK (L2)/NECTAR Feeding instructions for nursing crush meds in pureed 02/11/22 1416 02/08/22 1245 DIET SUPPLEMENTS START NOW Question Answer Comment Supplement 1 MIGHTY SHAKE REDUCED SUGAR CHOCOLATE Supplement 1 Frequency BREAKFAST Supplement 2 MIGHTY SHAKE REDUCED SUGAR STRAWBERRY BANANA Supplement 2 Frequency LUNCH Supplement 2 Frequency DINNER 02/08/22 1237 GI Symptoms: Chewing problems;Swallowing problems MNT Billing: $ Reassessment: 1-15 minutes SIGNATURE: Natalee Potts RD PATIENT NAME: Miri Cai DATE: February 18, 2022 TIME: 11:00 AM Normal [facility] Basic metabolic 2000 panelon 02-17-2022 Anion gap [Moles/Vol] 10 mmol/L Normal 9-18 [facility] Comment on above: Order Comment: Speci men Type: BLOOD SPECIMENOrdering Facility: [facility] Address: [address] [place] [address] Performed By: #### 2 4321-2 ####[facility] LABORATORYCLIA [id number] [place] [address] [place] Calcium [Mass/Vol] 8.2 mg/dL Low 8.5-10.2 [facility] Comment on above: Order Comment: Speci men Type: BLOOD SPECIMENOrdering Facility: [facility] Address: [address] [place] [address] Performed By: #### 2 4321-2 ####[facility] LABORATORYCLIA [id number] [place] [address] [place] Chloride [Moles/Vol] 108 mmol/L High 97-105 [facility] Comment on above: Order Comment: Speci men Type: BLOOD SPECIMENOrdering Facility: [facility] Address: [address] [place] [address] Performed By: #### 2 4321-2 ####[facility] LABORATORYCLIA [id number] [address] [place] CO2 [Moles/Vol] 23 mmol/L Normal 22-30 [facility] Comment on above: Order Comment: Speci men Type: BLOOD SPECIMENOrdering Facility: [facility] Address: [address] [place] [address] Performed By: #### 2 4321-2 ####[facility] [id number] [address] Creatinine [Mass/Vol] 0.69 mg/dL Low 0.73-1.22 [facility] Comment on above: Order Comment: Speci men Type: BLOOD SPECIMENOrdering Facility: [facility] Address: [address] [place] [address] Performed By: #### 2 4321-2 ####[facility]ATORYCLIA [id number] [address] ESTIMATED GLOMERULAR FILTRATION RATE 95 mL/min/1.73m??? Normal >=60 [facility] Comment on above: Order Comment: Speci men Type: BLOOD SPECIMENOrdering Facility: [facility] Address: [address] [place] [address] Result Comment: Ethan mated Glomerular Filtration Rate (eGFR) is calculated using the 2020 CKD-EPI creatinine equation. This equation utilizes serum creatinine, sex, and age as parameters. The creatinine assay has traceable calibration to isotope dilution-mass spectrometry. Refer to KDIGO guidelines for clinical interpretation. In patients with unstable renal function, e.g. those with acute kidney injury, the eGFR may not accurately reflect actual GFR. Performed By: #### 2 4321-2 ####[facility]ORATORYCLIA [id number] [address] Glucose [Mass/Vol] 103 mg/dL High 74-99 [facility] Comment on above: Order Comment: Speci miguel Type: BLOOD SPECIMENOrdering Facility: [facility] Address: [address] [place] [address] Result Comment: The [place] Diabetes [employer] (ADA) provides guidance for cutoff values for fasting glucose and random glucose. The ADA defines fasting as no caloric intake for at least 8 hours. Fasting plasma glucose results between 100 to 125 mg/dL indicate increased risk for diabetes (prediabetes). Fasting plasma glucose results greater than or equal to 126 mg/dL meet the criteria for diagnosis of diabetes. In the absence of unequivocal hyperglycemia, results should be confirmed by repeat testing. In a patient with classic symptoms of hyperglycemia or hyperglycemic crisis, random plasma glucose results greater than or equal to 200 mg/dL meet the criteria for diagnosis of diabetes. Reference: Standards of Medical Care in Diabetes 2016, [place] [employer]. Diabetes Care. 2016.39(Suppl 1). Performed By: #### 2 4321-2 ####[facility] LABORATORYCLIA [id number] [place] [address] [place] Potassium [Moles/Vol] 3.8 mmol/L Normal 3.7-5.1 [facility] Comment on above: Order Comment: Suzanne miguel Type: BLOOD SPECIMENOrdering Facility: [facility] Address: [address] [place] [address] Performed By: #### 2 4321-2 ####[facility] LABORATORYCLIA [id number] [place] [address] [place] Sodium [Moles/Vol] 141 mmol/L Normal 136-144 [facility] Comment on above: Order Comment: Parveeni men Type: BLOOD SPECIMENOrdering Facility: [facility] Address: [address] [place] [address] Performed By: #### 2 4321-2 ####[facility] LABORATORYCLIA [id number] [place] [address] [place] Urea nitrogen [Mass/Vol] 22 mg/dL Normal 9-24 [facility] Comment on above: Order Comment: Speci men Type: BLOOD SPECIMENOrdering Facility: [facility] Address: [address] [place] [address] Performed By: #### 2 4321-2 ####[facility] LABORATORYCLIA [id number] [place] [address] [facility] ALLIED HEALTHon 02-16-2022 ALLIED HEALTH HNO ID: [id number] Author: Yannick Maki RT(R) Service: Radiology Author Type: Technologist Type: Allied Health Filed: 02/16/2022 9:46 AM Note Text: Radiology Service Progress Note PATIENT NAME: Miri Cai DATE OF SERVICE: February 16, 2022 TIME: 9:46 AM PATIENT IDENTITY VERIFICATION COMPLETED USING TWO (2) IDENTIFIERS: Name and Date of confirmed by patient verbally and Name and Date of confirmed by identification band. FALL SCREENING: Has the patient had 2 falls in the last year or 1 fall with injury or currently using an Ambulatory Assistive Device (Walker, Cane, Wheelchair, Crutches, etc.)? No PATIENT GENDER DATA: Male PATIENT RELEVANT IMPLANT DATA REVIEWED: Not Applicable RADIOLOGY DEPARTMENT: CT; Exam(s) Completed: Brain PERIPHERAL IV DATA: Not applicable SIGNED BY: Yannick Maki RT(R) February 16, 2022 9:46 AM Normal [facility] CT BRAIN WO IVCONon 02-17-[address] BRAIN WO IVCON * * *Final Report* * * DATE OF EXAM: Feb 16 2022 9:47AM [facility] 0504 - CT BRAIN WO IVCON / PROCEDURE REASON: Stroke, follow up * * * * Physician Interpretation * * * * EXAMINATION: CT BRAIN WO IVCON CLINICAL HISTORY: Anticoagulation restarted. Acute stroke. Evaluate for hemorrhage. TECHNIQUE: Serial axial images without IV contrast were obtained from the vertex to the foramen magnum. MQ: CTBWO_3 CT Radiation dose: Integrated Dose-Length Product (DLP) for this visit = 821 mGy*cm CT Dose Reduction Employed: Automated exposure control(AEC) and iterative recon COMPARISON: 02/15/2022. MRI brain on 02/09/2022. RESULT: Water Ski Assembler (topogram) images: No additional findings. Post-operative change: None. Acute change: Evolving left middle cerebral artery distribution acute to subacute infarct. No new area of focal cortical infarct. Hemorrhage: Previously reported confluent petechial hemorrhages are better seen on MRI examination. No CT evidence of space-occupying intraparenchymal hematoma. Mass Lesion / Mass Effect: No significant midline shift. Chronic change: Patchy foci of low attenuation coefficient are present within the supratentorial white matter which is a nonspecific finding but likely represents moderate microvascular ischemia. Parenchyma: There is mild generalized volume loss. Ventricles: Ventricular enlargement concordant with the degree of parenchymal volume loss. Paranasal sinuses and skull base: The visualized paranasal sinuses are grossly clear. The skull base and imaged soft tissues are unremarkable. IMPRESSION: Evolving acute to subacute left middle cerebral artery distribution infarct. Localized mass effect without significant midline shift. Previously reported confluent petechial hemorrhages are better seen on MRI examination. No CT evidence of acute space-occupying parenchymal hematoma. Operations Recruiter: [facility] Transcribe Date/Time: Feb 16 2022 2:52P Dictated by : ROYA ROWE MD This examination was interpreted and the report reviewed and electronically signed by: ROYA ROWE MD on Feb 16 2022 2:59PM EST [id number] Normal [facility] Magnesium SerPl-mCncon 02-16 Magnesium [Mass/Vol] 2.0 mg/dL Normal 1.7-2.3 [facility] Comment on above: Order Comment: Suzanne rivera Type: BLOOD SPECIMENOrdering Facility: [facility] Address: [address] [place] [address] Performed By: #### 1 9123-9, 77335-3 ####[facility] LABORATORYCLIA [id number] [place] [address] [place] Renal function 2000 panelon 02-16-2022 Albumin [Mass/Vol] 1.8 g/dL Low 3.9-4.9 [facility] Comment on above: Order Comment: Specharjit rivera Type: BLOOD SPECIMENOrdering Facility: [facility] Address: [address] [place] [address] Performed By: #### 1 9123-9, 74768-2 ####[facility] LABORATORYCLIA [id number] [place] [address] [place] Anion gap [Moles/Vol] 11 mmol/L Normal 9-18 [facility] Comment on above: Order Comment: Speci men Type: BLOOD SPECIMENOrdering Facility: [facility] Address: [address] [place] [address] Performed By: #### 1 9123-9, 71139-7 ####[facility]ORATORYCLIA [id number] [place] [address] [place] Calcium [Mass/Vol] 6.7 mg/dL Low 8.5-10.2 [facility] Comment on above: Order Comment: Speci men Type: BLOOD SPECIMENOrdering Facility: [facility] Address: [address] [place] [address] Performed By: #### 1 9123-9, 47036-2 ####[facility] LABORATORYCLIA [id number] [address] [place] Chloride [Moles/Vol] 109 mmol/L High 97-105 [facility] Comment on above: Order Comment: Speci men Type: BLOOD SPECIMENOrdering Facility: [facility] Address: [address] [place] [address] Performed By: #### 1 9123-9, 41998-1 ####[facility]ORATORYCLIA [id number] [place] [address] [place] CO2 [Moles/Vol] 24 mmol/L Normal 22-30 [facility] Comment on above: Order Comment: Speci men Type: BLOOD SPECIMENOrdering Facility: [facility] Address: [address] [place] [address] Performed By: #### 1 9123-9, 26308-6 ####[facility]ORATORYCLIA [id number] [place] [address] [place] Creatinine [Mass/Vol] 0.74 mg/dL Normal 0.73-1.22 [facility] Comment on above: Order Comment: Speci men Type: BLOOD SPECIMENOrdering Facility: [facility] Address: [address] [place] [address] Performed By: #### 1 9123-9, 31235-6 ####[facility] [id number] [place] [id number] [facility] ESTIMATED GLOMERULAR FILTRATION RATE 93 mL/min/1.73m??? Normal >=60 [facility] Comment on above: Order Comment: Suzanne miguel Type: BLOOD SPECIMENOrdering Facility: [facility] [address]: [address] [place] [address] Result Comment: Ethan mated Glomerular Filtration Rate (eGFR) is calculated using the 2020 CKD-EPI creatinine equation. This equation utilizes serum creatinine, sex, and age as parameters. The creatinine assay has traceable calibration to isotope dilution-mass spectrometry. Refer to KDIGO guidelines for clinical interpretation. In patients with unstable renal function, e.g. those with acute kidney injury, the eGFR may not accurately reflect actual GFR. Performed By: #### 1 9123-9, 02962-0 ####[facility]ITALIA [id number] [address] [place] Glucose [Mass/Vol] 56 mg/dL Low 74-99 [facility] Comment on above: Order Comment: Suzanne rivera Type: BLOOD SPECIMENOrdering Facility: [facility] Address: [address] [place] [address] Result Comment: The [place] Diabetes [employer] (ADA) provides guidance for cutoff values for fasting glucose and random glucose. The ADA defines fasting as no caloric intake for at least 8 hours. Fasting plasma glucose results between 100 to 125 mg/dL indicate increased risk for diabetes (prediabetes). Fasting plasma glucose results greater than or equal to 126 mg/dL meet the criteria for diagnosis of diabetes. In the absence of unequivocal hyperglycemia, results should be confirmed by repeat testing. In a patient with classic symptoms of hyperglycemia or hyperglycemic crisis, random plasma glucose results greater than or equal to 200 mg/dL meet the criteria for diagnosis of diabetes. Reference: Standards of Medical Care in Diabetes 2016, [place] [employer]. Diabetes Care. 2016.39(Suppl 1). Performed By: #### 1 9123-9, 80770-1 ####[facility] LABORATORYCLIA [id number] [place] [address] [place] Phosphate [Mass/Vol] 3.0 mg/dL Normal 2.7-4.8 [facility] Comment on above: Order Comment: Speci men Type: BLOOD SPECIMENOrdering Facility: [facility] Address: [address] [place] [address] Performed By: #### 1 9123-9, 09341-5 ####[facility]ORATORYCLIA [id number] [place] [address] [place] Potassium [Moles/Vol] 3.4 mmol/L Low 3.7-5.1 [facility] Comment on above: Order Comment: Speci men Type: BLOOD SPECIMENOrdering Facility: [facility] Address: [address] [place] [address] Performed By: #### 1 9123-9, 74156-3 ####[facility] LABORATORYCLIA [id number] [address] [place] Sodium [Moles/Vol] 144 mmol/L Normal 136-144 [facility] Comment on above: Order Comment: Speci men Type: BLOOD SPECIMENOrdering Facility: [facility] Address: [address] [place] [address] Performed By: #### 1 9123-9, 10907-1 ####[facility] LABORATORYCLIA [id number] [place] [address] [place] Urea nitrogen [Mass/Vol] 24 mg/dL Normal 9-24 [facility] Comment on above: Order Comment: Speci men Type: BLOOD SPECIMENOrdering Facility: [facility] Address: [address] [place] [address] Performed By: #### 1 9123-9, 69793-6 ####[facility]ORATORYCLIA [id number] [place] [address] [place] Basic metabolic 2000 panelon 02-15-2022 Anion gap [Moles/Vol] 11 mmol/L Normal 9-18 [facility] Comment on above: Order Comment: Speci men Type: BLOOD SPECIMENOrdering Facility: [facility] Address: [address] [place] [address] Performed By: #### 2 4321-2 ####[facility]ATORYCLIA [id number] [place] [address] [place] Calcium [Mass/Vol] 8.6 mg/dL Normal 8.5-10.2 [facility] Comment on above: Order Comment: Speci men Type: BLOOD SPECIMENOrdering Facility: [facility] Address: [address] [place] [address] Performed By: #### 2 4321-2 ####[facility]ORATORYCLIA [id number] [place] [address] [place] Chloride [Moles/Vol] 109 mmol/L High 97-105 [facility] Comment on above: Order Comment: Speci men Type: BLOOD SPECIMENOrdering Facility: [facility] Address: [address] [place] [address] Performed By: #### 2 4321-2 ####[facility]ORATORYCLIA [id number] [place] [address] [place] CO2 [Moles/Vol] 24 mmol/L Normal 22-30 [facility] Comment on above: Order Comment: Speci men Type: BLOOD SPECIMENOrdering Facility: [facility] Address: [address] [place] [address] Performed By: #### 2 4321-2 ####[facility]ORATORYCLIA [id number] [address] [place] Creatinine [Mass/Vol] 0.77 mg/dL Normal 0.73-1.22 [facility] Comment on above: Order Comment: Speci men Type: BLOOD SPECIMENOrdering Facility: [facility] Address: [address] [place] [address] Performed By: #### 2 4321-2 ####[facility]ORATORYCLIA [id number] [address] [place] ESTIMATED GLOMERULAR FILTRATION RATE 92 mL/min/1.73m??? Normal >=60 [facility] Comment on above: Order Comment: Suzanne rivera Type: BLOOD SPECIMENOrdering Facility: [facility] Address: [address] [id number] Result Comment: Ethan mated Glomerular Filtration Rate (eGFR) is calculated using the 2020 CKD-EPI creatinine equation. This equation utilizes serum creatinine, sex, and age as parameters. The creatinine assay has traceable calibration to isotope dilution-mass spectrometry. Refer to KDIGO guidelines for clinical interpretation. In patients with unstable renal function, e.g. those with acute kidney injury, the eGFR may not accurately reflect actual GFR. Performed By: #### 2 4321-2 ####[facility]ORATORYCLIA [id number] [place] [address] [place] Glucose [Mass/Vol] 118 mg/dL High 74-99 [facility] Comment on above: Order Comment: Suzanne rivera Type: BLOOD SPECIMENOrdering Facility: [facility] Address: [address] [place], [place] [id number] Result Comment: The [place] Diabetes Association (ADA) provides guidance for cutoff values for fasting glucose and random glucose. The ADA defines fasting as no caloric intake for at least 8 hours. Fasting plasma glucose results between 100 to 125 mg/dL indicate increased risk for diabetes (prediabetes). Fasting plasma glucose results greater than or equal to 126 mg/dL meet the criteria for diagnosis of diabetes. In the absence of unequivocal hyperglycemia, results should be confirmed by repeat testing. In a patient with classic symptoms of hyperglycemia or hyperglycemic crisis, random plasma glucose results greater than or equal to 200 mg/dL meet the criteria for diagnosis of diabetes. Reference: Standards of Medical Care in Diabetes 2016, [place] [employer]. Diabetes Care. 2016.39(Suppl 1). Performed By: #### 2 4321-2 ####[facility]ORATORYCLIA [id number] [place] [address] [place] Potassium [Moles/Vol] 3.3 mmol/L Low 3.7-5.1 [facility] Comment on above: Order Comment: Suzanne rivera Type: BLOOD SPECIMENOrdering Facility: [facility] Address: [address] [phone] Performed By: #### 2 4321-2 ####[facility]ORATORYCLIA [id number] [address] STATES [facility] Sodium [Moles/Vol] 144 mmol/L Normal 136-144 [facility] Comment on above: Order Comment: Speci men Type: BLOOD SPECIMENOrdering Facility: [facility] Address: [address] [place] [address] Performed By: #### 2 4321-2 ####[facility]ORATORYCLIA [id number] [address] STATES OF [facility] Urea nitrogen [Mass/Vol] 25 mg/dL High 9-24 [facility] Comment on above: Order Comment: Speci men Type: BLOOD SPECIMENOrdering Facility: [facility] Address: [address] [place] [address] Performed By: #### 2 4321-2 ####[facility]ORATORYCLIA [id number] [address] CBC W Auto Differential pane l (Bld)on 02-15-2022 Basophils (Bld) [#/Vol] 10*3/uL Normal <0.11 [facility] Comment on above: Order Comment: Speci men Type: BLOOD SPECIMENOrdering Facility: [facility] Address: [address] [place] [address] Performed By: #### 5 7021-8 ####[facility]ORATORYCLIA [id number] [address] Basophils/100 WBC (Bld) 0.3 % Normal [facility] Comment on above: Order Comment: Speci men Type: BLOOD SPECIMENOrdering Facility: [facility] Address: [address] [place] [address] Performed By: #### 5 7021-8 ####[facility]ORATORYCLIA [id number] [address] Differential cell count method Nom (Bld) Auto Normal [facility] Comment on above: Order Comment: Speci men Type: BLOOD SPECIMENOrdering Facility: [facility] Address: [address] [address] Performed By: #### 5 7021-8 ####[facility]ORATORYCLIA [id number] [address] Eosinophils (Bld) [#/Vol] 0.27 10*3/uL Normal <0.46 [facility] Comment on above: Order Comment: Speci men Type: BLOOD SPECIMENOrdering Facility: [facility] Address: [address] [address] Performed By: #### 5 7021-8 ####[facility]ATORYCLIA [id number] [address] Eosinophils/100 WBC (Bld) 3.6 % Normal [facility] Comment on above: Order Comment: Speci men Type: BLOOD SPECIMENOrdering Facility: [facility] Address: [address] [place] [address] Performed By: #### 5 7021-8 ####[facility]ATORYCLIA [id number] [address] Erythrocyte distribution width (RBC) [Ratio] 14.8 % Normal 11.5-15.0 [facility] Comment on above: Order Comment: Speci men Type: BLOOD SPECIMENOrdering Facility: [facility] Address: [address] [place] [address] Performed By: #### 5 7021-8 ####[facility]ORATORYCLIA [id number] [address] Hematocrit (Bld) [Volume fraction] 25.2 % Low 39.0-51.0 [facility] Comment on above: Order Comment: Speci men Type: BLOOD SPECIMENOrdering Facility: [facility] Address: [facility] [address] Performed By: #### 5 7021-8 ####[facility]ORATORYCLIA [id number] [place] [address] [place] Hemoglobin (Bld) [Mass/Vol] 8.1 g/dL Low 13.0-17.0 [facility] Comment on above: Order Comment: Speci men Type: BLOOD SPECIMENOrdering Facility: [facility] Address: [address] [place] [address] Performed By: #### 5 7021-8 ####[facility]ATORYCLIA [id number] [address] IMMATURE GRAN % 0.8 % Normal [facility] Comment on above: Order Comment: Speci men Type: BLOOD SPECIMENOrdering Facility: [facility] Address: [address] [place] [address] Performed By: #### 5 7021-8 ####[facility]ORATORYCLIA [id number] [address] IMMATURE GRAN ABS 0.06 k/uL Normal <0.[address] [facility] Comment on above: Order Comment: Speci men Type: BLOOD SPECIMENOrdering Facility: [facility] Address: [address] [place] [address] Performed By: #### 5 7021-8 ####[facility]ATORYCLIA [id number] [address] Lymphocytes (Bld) [#/Vol] 0.95 10*3/uL Low 1.00-4.00 [facility] Comment on above: Order Comment: Speci men Type: BLOOD SPECIMENOrdering Facility: [facility] Address: [address] [place] [address] Performed By: #### 5 7021-8 ####[facility]ORATORYCLIA [id number] [address] Lymphocytes/100 WBC (Bld) 12.8 % Normal [facility] Comment on above: Order Comment: Speci men Type: BLOOD SPECIMENOrdering Facility: [facility] Address: [address] [place] [address] Performed By: #### 5 7021-8 ####[facility]ATORYCLIA [id number] [address] MCH (RBC) [Entitic mass] 30.6 pg Normal 26.0-34.0 [facility] Comment on above: Order Comment: Speci men Type: BLOOD SPECIMENOrdering Facility: [facility] Address: [address] [place] [address] Performed By: #### 5 7021-8 ####[facility]ATORYCLIA [id number] [address] MCHC (RBC) [Mass/Vol] 32.1 g/dL Normal 30.5-36.0 [facility] Comment on above: Order Comment: Speci men Type: BLOOD SPECIMENOrdering Facility: [facility] Address: [address] [place] [address] Performed By: #### 5 7021-8 ####[facility]ATORYCLIA [id number] [address] MCV (RBC) [Entitic vol] 95.1 fL Normal 80.0-100.0 [facility] Comment on above: Order Comment: Speci men Type: BLOOD SPECIMENOrdering Facility: [facility] Address: [address] [place] [address] Performed By: #### 5 7021-8 ####[facility]ATORYCLIA [id number] [address] Monocytes (Bld) [#/Vol] 0.66 10*3/uL Normal <0.87 [facility] Comment on above: Order Comment: Speci men Type: BLOOD SPECIMENOrdering Facility: [facility] Address: [address] [place] [address] Performed By: #### 5 7021-8 ####[facility]ATORYCLIA [id number] [address] Monocytes/100 WBC (Bld) 8.9 % Normal [facility] Comment on above: Order Comment: Speci men Type: BLOOD SPECIMENOrdering Facility: [facility] Address: [address] [place] [address] Performed By: #### 5 7021-8 ####[facility]ORYCLIA [id number] [address] [place] Neutrophils (Bld) [#/Vol] 5.47 10*3/uL Normal 1.45-7.50 [facility] Comment on above: Order Comment: Speci men Type: BLOOD SPECIMENOrdering Facility: [facility] Address: [address] [place] [address] Performed By: #### 5 7021-8 ####[facility]ORATORYCLIA [id number] [address] [place] Neutrophils/100 WBC (Bld) 73.6 % Normal [facility] Comment on above: Order Comment: Speci men Type: BLOOD SPECIMENOrdering Facility: [facility] Address: [address] [place] [address] Performed By: #### 5 7021-8 ####[facility]ATORYCLIA [id number] [address] [place] Nucleated RBC (Bld) [#/Vol] 10*3/uL Normal <0.01 [facility] Comment on above: Order Comment: Speci men Type: BLOOD SPECIMENOrdering Facility: [facility] Address: [address] [place] [address] Performed By: #### 5 7021-8 ####[facility]ATORYCLIA [id number] [address] [place] Nucleated RBC/100 WBC (Bld) [Ratio] 0.0 /100 WBC Normal [facility] Comment on above: Order Comment: Speci men Type: BLOOD SPECIMENOrdering Facility: [facility] Address: [address] [place] [address] Performed By: #### 5 7021-8 ####[facility]ORYCLIA [id number] [place] [address] [place] Platelet mean volume (Bld) [Entitic vol] 10.1 fL Normal 9.0-12.7 [facility] Comment on above: Order Comment: Speci men Type: BLOOD SPECIMENOrdering Facility: [facility] Address: [address] [place] [address] Performed By: #### 5 7021-8 ####[facility]ATORYCLIA [id number] [address] OF [facility] Platelets (Bld) [#/Vol] 292 10*3/uL Normal 150-400 [facility] Comment on above: Order Comment: Speci men Type: BLOOD SPECIMENOrdering Facility: [facility] Address: [address] [place] [address] Performed By: #### 5 7021-8 ####[facility]ATORYCLIA [id number] [address] OF [facility] RBC (Bld) [#/Vol] 2.65 10*6/uL Low 4.20-6.00 [facility] Comment on above: Order Comment: Speci men Type: BLOOD SPECIMENOrdering Facility: [facility] Address: [address] [place] [address] Performed By: #### 5 7021-8 ####[facility]ATORYCLIA [id number] [address] OF [facility] WBC (Bld) [#/Vol] 7.43 10*3/uL Normal 3.70-11.00 [facility] Comment on above: Order Comment: Speci men Type: BLOOD SPECIMENOrdering Facility: [facility] Address: [address] [place] [address] Performed By: #### 5 7021-8 ####[facility]ORATORYCLIA [id number] [address] CONSULT PROGon 02-15-2022 CONSULT PROG HNO ID: [id number] Author: Noni Rider PA-C Service: Neurology General Author Type: Physician Wire Coating Machine Operator Type: Consult Progress Note Filed: 02/15/2022 1:15 PM Note Text: Neurology progress note: CT brain: Acute left MCA territory infarct. Confluent petechial hemorrhage in the left basal ganglia infarct is better visualized on previous MR. No space-occupying hematoma. Local mass effect. Okay to start eliquis today in addition to the plavix (will need to stay on plavix d/t stent) and stop the aspirin. Noni Rider PA-C February 15, 2022 1:15 PM 1149 Normal [facility] CT BRAIN WO IVCONon 02-16-[address] BRAIN WO IVCON * * *Final Report* * * DATE OF EXAM: Feb 15 2022 10:49AM [facility] 0504 - CT BRAIN WO IVCON / PROCEDURE REASON: Stroke, follow up * * * * Physician Interpretation * * * * EXAMINATION: CT BRAIN WO IVCON CLINICAL HISTORY: Stroke, follow up TECHNIQUE: Serial axial images without IV contrast were obtained from the vertex to the foramen magnum. MQ: CTBWO_3 CT Radiation dose: Integrated Dose-Length Product (DLP) for this visit = 804 mGy*cm CT Dose Reduction Employed: Iterative recon COMPARISON: MR brain 02/09/2022 RESULT: Water Ski Assembler (topogram) images: No additional findings. Post-operative change: None. Acute change: Patchy and confluent parenchymal hypodensity in the left frontal and parietal lobes and anterior temporal lobe, and left basal ganglia is compatible with acute left MCA territory infarct. Punctate right temporal infarct is not well seen due to imaging technique. Hemorrhage: Confluent petechial hemorrhage in the left basal ganglia infarct is better visualized on previous MR. No space-occupying hematoma. ECASS hemorrhagic transformation score: HI 2 Mass Lesion / Mass Effect: There is no evidence of an intracranial mass or extraaxial fluid collection. Local mass effect with mild effacement of the left lateral ventricle. No midline shift. Chronic change: Scattered patchy foci of low attenuation are present within supratentorial white matter which is a nonspecific finding but likely represents mild microvascular ischemia. Parenchyma: There is moderate generalized volume loss. The brain parenchyma is otherwise within normal limits for age. Ventricles: Ventricular enlargement concordant with the degree of parenchymal volume loss. Paranasal sinuses and skull base: The visualized paranasal sinuses are grossly clear. The skull base and imaged soft tissues are unremarkable. IMPRESSION: Acute left MCA territory infarct. Confluent petechial hemorrhage in the left basal ganglia infarct is better visualized on previous MR. No space-occupying hematoma. Local mass effect. Operations Recruiter: [facility] Transcribe Date/Time: Feb 15 2022 11:05A Dictated by : JENIFER PORTER MD This examination was interpreted and the report reviewed and electronically signed by: JENIFER PORTER MD on Feb 15 2022 11:10AM EST [id number] Normal [facility] THERAPY NTon 02-15-2022 THERAPY NT HNO ID: [id number] Author: Pricilla Camarena, PT Service: Physical Therapy Author Type: Physical Therapist Type: Therapy (PT/OT/Speech/Resp) Filed: 02/15/2022 3:03 PM Note Text: Physical Therapy Treatment SERVICE DATE: 02/15/2022 SERVICE TIME: 1350 to 1428 ROOM: [place] [address] Recommended Discharge Disposition: Acute Rehab Recommended Discharge Disposition Comments: Patient s/p (L) TSA complicated by acute (L) MCA infarct post-op with right sided deficits and aphasia limiting his current function when he was previously living independently. Intensive therapies are most appropriate to maximize his functional outcomes. Recommended Discharge Disposition Due to: Patient requires an active, intensive rehabilitation therapy program due to:;ADL impairment resulting in caregiver dependence;coordinati on deficits;decline in functional status requiring daily skilled care;deficits affecting dominant side;deficits affecting non-dominant side;high level balance deficits;new / worsened cognitive deficits related to current diagnosis;ongoing intervention of multiple therapy disciplines;poor trunk control PT 6 Clicks Score: 8 Patient demonstrating progress towards goals, increased sitting tolerance this date with ability to assist returning to midline positioning with dynamic sitting balance. Patient motivated and will greatly benefit from Acute Rehab at discharge to maximize strength, balance and coordination. Precautions/Activity Restrictions: Weight Bearing Restrictions;Fall Risk Precaution/Activity Restriction Comments: (R) sided weakness, (L) UE NWB in sling (per ortho, ok for AROM to LUE) Extremity With Weight Bearing Restricted: Left Upper Extremity Left Upper Extremity Weight Bearing Status: NWB Current Hospital Course: (L) TSA on 02/06/22 at [facility] with recovery complicated by right sided weakness, aphasia, facial droop - (L) MCA stroke - prompting administration of TNK on 02/06 at 2230 and transfer to for NIL for (L) ICA/MCA stenting on 02/07/22 with restenosis and return to NIL later on 02/07/22. Reason for Hospital Admission: stroke after (L) TSA on 02/06/22. transfer from OSH Relevant Past Medical History: HTN, DM type 2, pAF on Eliquis (held for surgery) Response to Therapy Interventions: Good participation in activities, Requires additional time to complete activities Continue skilled needs due to: Functional mobility/skill impairments, Safety concerns Physical Therapy Problem List: Education Deficit;Safety Deficits;Impaired Self Care;Pain;Decreased Activity Tolerance;Decreased Range Of Motion;Decreased Strength;Functional Mobility Impairment;Balance Impaired Treatment Interventions: Education;Self Care / Home Management;Energy Conservation Training;Joint Mobility;Strengthenin g;Functional Mobility Training;Balance Training;Neuromuscula r Re-education Plan for next visit: Bed mobility, Exercise instruction/handout, Sitting balance, Sit to Stand Transfers Home Environment Patient Lives With: Self/Alone Assistance Available: (unknown) Entry To Home: Stairs Number Of Stairs Into Home: 4 Number Of Stairs To Bed/Bath: 0 Equipment Owned: (unknown) Prior Functional Level: Within Functional Limits Prior Functional Level Comments: Per care management note, patient lives alone in a single level mobile home, independent prior to admission Patient Report: Patient agreeable to PT session, able to state his name, difficulty with CURRENT FUNCTIONAL STATUS: Most recent performance mobility performed during session in bold, other mobility completed during prior session and may no longer be correct or appropriate to complete. Current Functional Mobility Assist Level Additional Information Rolling Maximal Assistance;Additional Information assist to place UE over chest to protect bilateral shoulders, requires max assist to achieve sidelying to provide danny care Supine to Sit Maximal Assistance;Additional Information HOB slightly elevated, patient able to slide LLE to edge of bed with cuing, assist to slide RLE with max assist at trunk to elevate into sitting Sit to Supine Maximal Assistance;Additional Information assist to control descent of trunk and clear RLE at edge of bed, patient able to clear LLE to resume supine Scooting Maximal Assistance;Additional Information use of draw sheet to scoot hips forward for optimal sitting posture and to boost towards HOB once in supine Sit to Stand Total Assistance tactile cuing for proper foot placement, therapist blocking R knee, cues to rock forward and power through BLE, LUE supported in sling with tactile assist to maintain R hand placement on bed, unable to clear bottom x2 attempts Stand to Sit Bed to Chair Toilet/Commode Gait Stairs Curb Step Car Transfer Blank mejia indicate activity not attempted Balance: Static Sitting;Dynamic Sitting Static Sitting Balance: Fair Patient able to maintain balance (more content not included)... Normal [facility] CONSULT PROGon 02-14-2022 CONSULT PROG HNO ID: [id number] Author: Max Nazario APRN.SHORE MAN Service: Neurology General Author Type: Nurse Practitioner Type: Consult Progress Note Filed: 02/14/2022 11:53 AM Note Text: NEURO STROKE PROGRESS NOTE SERVICE DATE: 02/14/2022 SERVICE TIME: 0830 Subjective INTERVAL HISTORY: No acute events overnight. Patient sitting up in bed eating breakfast. Discussed plan of care, follow up plans. MEDICATIONS Current Facility-Administered Medications Medication Dose Route Frequency NaCl 0.9% iv flush bag 20 mL INTRAVENOUS PRN sodium chloride 0.9 % (flush) 3-5 mL (BD POSIFLUSH) 3-5 mL INTRAVENOUS q 12 H atorvastatin 80 mg tab(s) (LIPITOR) 80 mg ORAL/FEEDING TUBE AT BEDTIME acetaminophen 650 mg tab(s) (TYLENOL) 650 mg ORAL/FEEDING TUBE q 4 H PRN aspirin 81 mg chewable tab(s) 81 mg ORAL/FEEDING TUBE DAILY clopidogrel 75 mg tab(s) (PLAVIX) 75 mg ORAL/FEEDING TUBE DAILY enoxaparin 40 mg injection (LOVENOX) 40 mg SUBCUTANEOUS q 24 HR dextrose 15 gram/32 mL 15 g (TRUEPLUS) 15 g ORAL PRN Or glucagon 1 mg injection 1 mg INTRAMUSCULAR PRN Or dextrose 10% iv bolus 12.5 g INTRAVENOUS PRN insulin lispro injection (rapid acting) (ADMELOG) SUBCUTANEOUS w MEALS AND HS tamsulosin 0.4 mg cap(s) (FLOMAX) 0.4 mg ORAL DAILY metoprolol tartrate (short acting) 25 mg tab(s) (LOPRESSOR) 25 mg ORAL/FEEDING TUBE q 12 H Objective PHYSICAL EXAM Vital Signs: BP 112/61 Pulse 89 Temp 36.4 ?C (97.5 ?F) (Oral) Resp 16 Ht 179.1 cm (5' 10.5) Wt 87.9 kg (193 lb 12.6 oz) SpO2 95% BMI 27.41 kg/m? GENERAL: Awake/easily arousable. HEENT: Normocephalic/atrauma tic, no lymphadenopathy, thyroid non-tender, without palpable masses/nodules or enlargement. RESPIRATORY: Normal respiratory effort. Clear to auscultation without rhonchi, rales, wheezing. CARDIOVASCULAR: RRR, normal S1, S2 auscultated, no murmur present. No lower extremity edema. GI: No hernia, masses, hepatosplenomegaly or lymphadenopathy. EXTREMITIES: No cyanosis, clubbing or edema. Pedal and radial pulses 2+ bilaterally. SKIN: Skin color, texture, turgor normal. No rashes or lesions. MUSCULOSKELETAL Spine range of motion normal. Muscular strength intact. Range of motion normal in hips, knees, shoulders, and spine. No joint swelling, deformity, or tenderness. NEUROLOGICAL: LOC: 0 - alert and responsive 0 LOC Questions: 0 - both correct 0 LOC Commands: 0 - both correct 0 Best Gaze: 0 - normal gaze 0 Visual: 0 - no visual loss 0 Facial Palsy: 1 - minor paralysis (normal looking face, asymmetric smile) 1 Motor Left Arm: 0 - no drift 0 Motor Right Arm: 4 - no movement at all 4 Motor Left Le - drift but does not hit bed 1 Motor Right Le - some antigravity effort but cannot sustain 2 Limb Ataxia: 0 - no ataxia (or aphasic, hemiplegic) 0 Sensory: 1 - mild to moderate unilateral loss but patient aware of touch (or aphasic, confused) 1 Best Language: 0 - normal 0 Dysarthria: 1 - mild-mod slurred 1 Extinction and Inattention: 0 - normal, none detected (or visual loss alone) 0 Daily NIHSS Score: 10 (02/14/22 0830 : Max Nazario APRN.SHORE MAN) 10 MENTAL STATUS: Alert, oriented to person, place and time and Follows commands CRANIAL NERVES: PERRL, no gaze deviation, right facial droop, slight dysarthria MOTOR: RUE no movement 0/5, RLE 2/5, some antigravity, LUE 5/5 no drift, LLE 4/5 some drift REFLEXES: UE and LE reflexes are equal and reactive SENSATION: Diminished light touch right side COORDINATION: Not assessed GAIT: Not assessed DATA: Diagnostic tests reviewed for today's visit: Lipids, HbA1c, CMP, CBC, Coags Recent Labs 02/13/22 0421 02/12/22 0241 02/11/22 1746 02/11/22 0949 NA 146* 146* -- 146* K 3.5* 3.4* 3.7 2.9* CHLOR 111* 112* -- 110* CO2 23 25 -- 25 BUN 24 24 -- 22 CREAT 0.70* 0.76 -- 0.79 GLUC 111* 103* -- 159* CA 8.6 8.4* -- 8.5 MG -- 2.0 -- 2.2 P -- 2.9 -- 2.7 WBC 7.12 6.56 -- 7.61 HB 7.8* 7.2* -- 7.6* HCT 23.7* 22.2* -- 23.8* PLT 248 207 -- 217 Most recent labs and imaging results. MEDICAL EVENTS: No medical events have been recorded. STROKE 9 CARE AND PREVENTION CHECKLIST 1. Is the patient currently on an ANTITHROMBOTIC medication (Antiplatelet or Anticoagulant): Aspirin;Clopidogrel 2. Does the patient have known AFIB/FLUTTER: Other/unspecified atrial flutter Is the patient currently on anticoagulation: No Reason patient not on anticoagulation: High risk of bleeding Are there plans to start anticoagulation: Yes, plan to start anticoagulation in 1-2 weeks 3. Is the patient on a STATIN: Atorvastatin 80 mg 4. Is the patient on VTE prophylaxis: Mechanical prophylaxis;Pharmacol ogical prophylaxis Pharmacological intervention type: Lovenox Mechanical intervention type: Intermittent compression stocking(s) 5. GLYCEMIC Control Medications: BG well controlled 6. Stroke BP Goals: SBP 130-160 Stroke BP Control: BP needs further managemen (more content not included)... Normal [facility] NURSING PROGon 02-14-2022 NURSING PROG HNO ID: [id number] Author: Liza Burdick RN Service: Nursing Author Type: Registered Nurse Type: Nursing Progress Note Filed: 02/14/2022 5:10 AM Note Text: Other: Three RNs were unsuccessful at retrieving blood for morning labs from this patient. The patients IVs flush but will not give back blood. Mari De La Rosa CNP, with [employer] was notified and stated to document not being able to get morning labs. Patient's RN will pass on to dayshift RN. Normal [facility] THERAPY NTon 02-14-2022 THERAPY NT HNO ID: [id number] Author: MARISABEL Funes/Elvis Service: Occupational Therapy Author Type: Occupational Therapist Type: Therapy (PT/OT/Speech/Resp) Filed: 02/14/2022 4:46 PM Note Text: Occupational Therapy Treatment SERVICE DATE: 02/14/2022 SERVICE TIME: 1602 to 1622 ROOM: [place] [address] Recommended Discharge Disposition: Acute Rehab Recommended Discharge Disposition Comments: Pt currently functioning below baseline and requires significant assistance to complete self-care ADL's and funcitonal mobility transfers. Recommended Discharge Disposition Due to: Patient requires an active, intensive rehabilitation therapy program due to:;ADL impairment resulting in caregiver dependence;decline in functional status requiring daily skilled care;deficits affecting dominant side;deficits affecting non-dominant side;high level balance deficits;less than 3/5 weakness noted in:;distal LE;distal UE;shoulder girdle;motor planning deficits;new / worsened cognitive deficits related to current diagnosis;ongoing intervention of multiple therapy disciplines;poor trunk control OT 6 Clicks Score: 9 Pt agreeable to treatment session and reports 4/10 pain in LUE. Pt demo's AROM of the L digits and wrist after verbal cues/demonstration. Assistance with gentle LUE elbow flexion/extension and shoulder flexion/extension. Assistance PROM with the RUE shoulder flexion, elbow flexion/extension, forearm pronation/supination, and wrist/digit flexion/extension. Assistance to complete self-feeding thickened liquids. Pt demonstrates good rehab potential in ability to participate in therapy. Precautions/Activity Restrictions: Weight Bearing Restrictions;Fall Risk Precaution/Activity Restriction Comments: (R) sided weakness, (L) UE NWB in sling (per ortho, ok for AROM to LUE) Extremity With Weight Bearing Restricted: Left Upper Extremity Left Upper Extremity Weight Bearing Status: NWB Current Hospital Course: (L) TSA on 02/06/22 at OSH with recovery complicated by right sided weakness, aphasia, facial droop - (L) MCA stroke - prompting administration of TNK on 02/06 at 2230 and transfer to [facility] for NIL for (L) ICA/MCA stenting on 02/07/22 with restenosis and return to NIL later on 02/07/22. Reason for Hospital Admission: stroke after (L) TSA on 02/06/22. transfer from OSH Relevant Past Medical History: HTN, DM type 2, pAF on Eliquis (held for surgery) Occupational Therapy Problem List: Cognitive Deficit;Impaired Self Care;Decreased Activity Tolerance;Decreased Range Of Motion;Decreased Strength;Functional Mobility Impairment;Motor Planning Difficulties Treatment Interventions: Self Care / Home Management;Education; Joint Mobility;Strengthenin g;Functional Mobility Training;Balance Training;Neuromuscula r Re-education;Cognitiv e Training Home Environment Patient Lives With: Self/Alone Assistance Available: (unknown) Entry To Home: Stairs Number Of Stairs Into Home: 4 Number Of Stairs To Bed/Bath: 0 Equipment Owned: (unknown) Prior Functional Level: Within Functional Limits Prior Functional Level Comments: Per care management note, patient lives alone in a single level mobile home, independent prior to admission CURRENT FUNCTIONAL STATUS: Most recent performance Current Activities of Daily Living Assist Level Additional Information Feeding Maximal Assistance Grooming Maximal Assistance Bathing Upper Body Maximal Assistance Bathing Lower Body Total Assistance Dressing Upper Body Total Assistance Dressing Lower Body Total Assistance Toileting Total Assistance Functional Mobility Assist Level Additional Information Rolling Maximal Assistance Supine to Sit Maximal Assistance Sit to Supine Maximal Assistance Scooting Maximal Assistance Sit to Stand Stand to Sit Bed to Chair Toilet/Commode Shower Functional Mobility Blank mejia indicate activity not attempted Balance: Static Sitting;Dynamic Sitting Static Sitting Balance: Poor Patient requires handhold support and moderate to maximal assistance to maintain position Dynamic Sitting Balance: Poor Patient unable to accept challenge or move without loss of balance Activity Tolerance: Sitting Activity Sitting Activity: bed mobility, sitting EOB for feeding task, neuromuscular re-education Sitting Activity Tolerance (in minutes): 4 Learning/Educational Needs: Discharge Plan;Safety;Self Care;Functional Activities/Mobility Goals for Plan of Care: Patient /Caregiver Goals: Go Home Feeding with: Moderate Assistance Grooming with: Moderate Assistance Upper Body Bathing with: Moderate Assistance Upper Body Dressing with: Moderate Assistance Tolerate (minutes of functional activity): 15 Functional Activity with: Minimal Assistance Additional Goal 1: Pt will verbalize 3/3 orientation questions correctly to demonstrate increased alertness and awarness to situation. Additional Goal 2: Pt will demonstrate good/fair sitting balance (more content not included)... Normal [facility] THERAPY NT HNO ID: [id number] Author: Courtney Keller CCC-OBSTETRICS SCRUB NURSE Service: Speech/Swallow Author Type: Speech Language Pathologist Type: Therapy (PT/OT/Speech/Resp) Filed: 02/14/2022 3:18 PM Note Text: Speech Therapy Treatment SERVICE DATE: 02/14/2022 SERVICE TIME: 1450 to 1502 ROOM: [id number] IMPRESSION: Swallow Deficits Identified / Suspected: Oropharyngeal dysphagia Diet Recommendations: Soft and Bite-Sized IDDSI Level 6; Mildly Thick Liquids IDDSI Level 2 (Beemer Thick) Medications whole in puree (pudding/applesauce) Swallowing Precautions Recommendations: Alert (patient should be fully alert for P.O. intake) 1:1 Supervision Sit upright 90 degrees for all PO Small Bite/Sip No straws Feed / Eat at a slow rate Nursing Recommendations: See swallow guide posted in patients room;Routine Rigid Oral Hygiene;Reinforce use of swallowing strategies;Use suction toothbrush with patient Instrumental Swallow Assessment Recommendations: (MBS completed 02/11/22) Recommended Discharge Disposition: Acute Rehab Justification for Recommended Discharge Disposition: dysphagia requiring frequent assessment and diet modification;expressi ve language/communicatio n deficits;receptive language/communicatio n deficits Current Hospital Course: CT Brain 02-06:no acute intracranial pathology, XR Shoulder limited 2V AP/TRULE APLT-patient 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 02/09 MRI brain with multiple evolving left MCA lenticulostriate distribution acute infarcts., 10: modified barium swallow Reason for Hospital Admission: stroke after (L) TSA on 02/06/22. transfer from OSH Rehabilitation Precautions: Modified Diet;Aspiration Precautions;Dysphagia ;Cognitive Linguistics Deficits;Communicatio n Deficits Reason for Speech Therapy Consult: swallowing and speech evaluation Relevant Past Medical History: DM2, HTN Response to Therapy Interventions: Aspiration Risk, Aphasia, Good Participation in activities Continue skilled OBSTETRICS SCRUB NURSE services due to : Dysphagia Speech Therapy Problem List: Dysphagia Patient Report: minimal verbalization Current Status Oral Hygiene: Clear, moist oral cavity Dentition: Retains Natural Dentition;Miscellaneo us Missing Teeth Current Feeding Method: Oral Current Diet Textures: Soft and Bite-Sized IDDSI Level 6;Mildly Thick Liquids IDDSI Level 2 (Beemer Thick);Medications whole in puree (pudding/applesauce) Current Level Of Communication: Verbal;Aphasia Current Management Of Secretions: Able to expectorate adequately Oral Motor Exam: Within Functional Limits Except Facial Symmetry Impaired: Right Labial Assessment: Poor labial seal Labial ROM Impaired: Right Labial Strength Impaired: Right Lingual ROM Impaired: Right Lingual Strength Impaired: Right Palatal Elevation: Within Functional Limits Swallow Position Of Patient During Assessment: Upright In Chair Consistencies Presented: Mildly Thick Liquids IDDSI Level 2 (Beemer Thick), Pureed IDDSI Level 4 Response to Consistencies Presented: no overt signs of aspiration Compensatory Strategies Utilized During Assessment: Alert (patient should be fully alert for P.O. intake), Sit upright 90 degrees for all PO, Supervision/Assistanc e for meals., Small Bite/Sip, No straws Patient awake and alert Patient agreeable to swallowing nectars and puree Patient swallowed nectars without overt signs of aspiration Patient swallowed puree without overt signs of aspiration Clear voice and no coughing Laryngeal movement was detected upon palpation of the larynx No oral residue Will follow for swallowing management Patient /Caregiver Goals: Eat/Drink Without Restrictions Goals for Plan of Care: Goals: SWALLOWING: Patient / Caregiver will demonstrate knowledge of taught compensatory strategies and dietary consistency recommendations to optimize functional swallow function without overt clinical signs and symptoms of aspiration or dysphagia Swallow Goals: Patient will participate in a Modified Barium Swallow Study (MBS) to thoroughly evaluate the oral and pharyngeal phase of the swallow, which cannot be substantiated through a clinical swallowing evaluation only. Through further diagnostic testing a definitive diagnosis/identificat ion of the patient's current swallowing function and recommended treatment plan can be established. Goal met 02/11/2022 Patient will tolerate Pureed IDDSI Level 4 diet consistency while utilizing compensatory/swallowi ng strategies given moderate cues in 90% of trials so that the patient will minimize the signs/symptoms of dysphagia. Goal met 02/11/2022 Patient will tolerate Mildly Thick Liquids IDDSI Level 2 (Beemer Thick) consistency while utilizing compensatory/swallowi ng strategies given moderate cues in 90% of trials so that the patient will minimize the signs/symptoms of dysphagia. See above 02-14-2022 Patient will tolerate Soft and Bite-Sized IDDSI Level (more content not included)... Normal [facility] Basic metabolic 2000 panelon 02-13-2022 Anion gap [Moles/Vol] 12 mmol/L Normal 9-18 [facility] Comment on above: Order Comment: Speci men Type: BLOOD SPECIMENOrdering Facility: [facility] Address: [address] [address] Performed By: #### 2 4321-2 ####[facility]ORATORYCLIA [id number] [address] [place] Calcium [Mass/Vol] 8.6 mg/dL Normal 8.5-10.2 [facility] Comment on above: Order Comment: Speci men Type: BLOOD SPECIMENOrdering Facility: [facility] Address: [address] [place] [address] Performed By: #### 2 4321-2 ####[facility] LABORATORYCLIA [id number] [place] [address] [place] Chloride [Moles/Vol] 111 mmol/L High 97-105 [facility] Comment on above: Order Comment: Speci men Type: BLOOD SPECIMENOrdering Facility: [facility] Address: [address] [place] [address] Performed By: #### 2 4321-2 ####[facility] LABORATORYCLIA [id number] [place] [address] [place] CO2 [Moles/Vol] 23 mmol/L Normal 22-30 [facility] Comment on above: Order Comment: Speci men Type: BLOOD SPECIMENOrdering Facility: [facility] Address: [address] [place] [address] Performed By: #### 2 4321-2 ####[facility] LABORATORYCLIA [id number] [place] [address] [place] Creatinine [Mass/Vol] 0.70 mg/dL Low 0.73-1.22 [facility] Comment on above: Order Comment: Speci men Type: BLOOD SPECIMENOrdering Facility: [facility] Address: [address] [place] [address] Performed By: #### 2 4321-2 ####[facility] LABORATORYCLIA [id number] [address] [place] ESTIMATED GLOMERULAR FILTRATION RATE 94 mL/min/1.73m??? Normal >=60 [facility] Comment on above: Order Comment: Suzanne rivera Type: BLOOD SPECIMENOrdering Facility: [facility] Address: [address] [id number] Result Comment: Ethan mated Glomerular Filtration Rate (eGFR) is calculated using the 2020 CKD-EPI creatinine equation. This equation utilizes serum creatinine, sex, and age as parameters. The creatinine assay has traceable calibration to isotope dilution-mass spectrometry. Refer to KDIGO guidelines for clinical interpretation. In patients with unstable renal function, e.g. those with acute kidney injury, the eGFR may not accurately reflect actual GFR. Performed By: #### 2 4321-2 ####[facility]ATORYCLIA [id number] [place] [address] [place] Glucose [Mass/Vol] 111 mg/dL High 74-99 [facility] Comment on above: Order Comment: Suzanne rivera Type: BLOOD SPECIMENOrdering Facility: [facility] Address: [address] [place] [address] Result Comment: The [place] Diabetes [employer] (ADA) provides guidance for cutoff values for fasting glucose and random glucose. The ADA defines fasting as no caloric intake for at least 8 hours. Fasting plasma glucose results between 100 to 125 mg/dL indicate increased risk for diabetes (prediabetes). Fasting plasma glucose results greater than or equal to 126 mg/dL meet the criteria for diagnosis of diabetes. In the absence of unequivocal hyperglycemia, results should be confirmed by repeat testing. In a patient with classic symptoms of hyperglycemia or hyperglycemic crisis, random plasma glucose results greater than or equal to 200 mg/dL meet the criteria for diagnosis of diabetes. Reference: Standards of Medical Care in Diabetes 2016, [place] [employer]. Diabetes Care. 2016.39(Suppl 1). Performed By: #### 2 4321-2 ####[facility]ORATORYCLIA [id number] [place] [address] [place] Potassium [Moles/Vol] 3.5 mmol/L Low 3.7-5.1 [facility] Comment on above: Order Comment: Suzanne rivera Type: BLOOD SPECIMENOrdering Facility: [facility] Address: [address] [phone] Performed By: #### 2 4321-2 ####[facility]ORATORYCLIA [id number] [address] STATES OF [facility] Sodium [Moles/Vol] 146 mmol/L High 136-144 [facility] Comment on above: Order Comment: Speci men Type: BLOOD SPECIMENOrdering Facility: [facility] Address: [address] [place] [address] Performed By: #### 2 4321-2 ####[facility]ORATORYCLIA [id number] [address] STATES [facility] Urea nitrogen [Mass/Vol] 24 mg/dL Normal 9-24 [facility] Comment on above: Order Comment: Speci men Type: BLOOD SPECIMENOrdering Facility: [facility] Address: [address] [place] [address] Performed By: #### 2 4321-2 ####[facility]ORATORYCLIA [id number] [address] CBC panel Auto (Bld)on 02-13 Erythrocyte distribution width (RBC) [Ratio] 14.7 % Normal 11.5-15.0 [facility] Comment on above: Order Comment: Speci men Type: BLOOD SPECIMENOrdering Facility: [facility] Address: [address] [place] [address] Performed By: #### 5 8410-2 ####[facility]ORATORYCLIA [id number] [address] Hematocrit (Bld) [Volume fraction] 23.7 % Low 39.0-51.0 [facility] Comment on above: Order Comment: Speci men Type: BLOOD SPECIMENOrdering Facility: [facility] Address: [address] [place] [address] Performed By: #### 5 8410-2 ####[facility]ORATORYCLIA [id number] [address] OF [facility] Hemoglobin (Bld) [Mass/Vol] 7.8 g/dL Low 13.0-17.0 [facility] Comment on above: Order Comment: Speci men Type: BLOOD SPECIMENOrdering Facility: [facility] Address: [address] [place] [address] Performed By: #### 5 8410-2 ####[facility]ATORYCLIA [id number] [address] MCH (RBC) [Entitic mass] 31.6 pg Normal 26.0-34.0 [facility] Comment on above: Order Comment: Speci men Type: BLOOD SPECIMENOrdering Facility: [facility] Address: [address] [place] [address] Performed By: #### 5 8410-2 ####[facility]ORATORYCLIA [id number] [address] MCHC (RBC) [Mass/Vol] 32.9 g/dL Normal 30.5-36.0 [facility] Comment on above: Order Comment: Speci men Type: BLOOD SPECIMENOrdering Facility: [facility] Address: [address] [place] [address] Performed By: #### 5 8410-2 ####[facility]ORATORYCLIA [id number] [address] MCV (RBC) [Entitic vol] 96.0 fL Normal 80.0-100.0 [facility] Comment on above: Order Comment: Speci men Type: BLOOD SPECIMENOrdering Facility: [facility] Address: [address] [place] [address] Performed By: #### 5 8410-2 ####[facility]ORATORYCLIA [id number] [address] Nucleated RBC (Bld) [#/Vol] 0.03 10*3/uL High <0.01 [facility] Comment on above: Order Comment: Speci men Type: BLOOD SPECIMENOrdering Facility: [facility] Address: [address] [place] [address] Performed By: #### 5 8410-2 ####[facility]ORATORYCLIA [id number] [address] OF [facility] Platelet mean volume (Bld) [Entitic vol] 10.3 fL Normal 9.0-12.7 [facility] Comment on above: Order Comment: Speci men Type: BLOOD SPECIMENOrdering Facility: [facility] Address: [address] [place] [address] Performed By: #### 5 8410-2 ####[facility]ORATORYCLIA [id number] [address] OF [place] Platelets (Bld) [#/Vol] 248 10*3/uL Normal 150-400 [facility] Comment on above: Order Comment: Speci men Type: BLOOD SPECIMENOrdering Facility: [facility] Address: [address] [place] [address] Performed By: #### 5 8410-2 ####[facility] [id number] [address] RBC (Bld) [#/Vol] 2.47 10*6/uL Low 4.20-6.00 [facility] Comment on above: Order Comment: Speci men Type: BLOOD SPECIMENOrdering Facility: [facility] Address: [address] [place] [address] Performed By: #### 5 8410-2 ####[facility]ORATORYCLIA [id number] [address] OF [facility] WBC (Bld) [#/Vol] 7.12 10*3/uL Normal 3.70-11.00 [facility] Comment on above: Order Comment: Speci men Type: BLOOD SPECIMENOrdering Facility: [facility] Address: [address] [place] [address] Performed By: #### 5 8410-2 ####[facility]ORATORYCLIA [id number] [address] NURSING PROGon 02-13-2022 NURSING PROG HNO ID: [id number] Author: Jag Lovett RN Service: ? Author Type: Registered Nurse Type: Nursing Progress Note Filed: 02/13/2022 5:00 PM Note Text: Transfer Note: Patient transferred into room/unit 8107-1 in stable condition. Actions taken: Report given/called to Shari Luna [facility] THERAPY NTon 02-13-2022 THERAPY NT HNO ID: [id number] Author: Pricilla Camarena, PT Service: Physical Therapy Author Type: Physical Therapist Type: Therapy (PT/OT/Speech/Resp) Filed: 02/13/2022 3:47 PM Note Text: Physical Therapy Treatment SERVICE DATE: 02/13/2022 SERVICE TIME: 1420 to 1448 ROOM: [place] [address] Recommended Discharge Disposition: Acute Rehab Recommended Discharge Disposition Comments: Patient s/p (L) TSA complicated by acute (L) MCA infarct post-op with right sided deficits and aphasia limiting his current function when he was previously living independently. Intensive therapies are most appropriate to maximize his functional outcomes. Recommended Discharge Disposition Due to: Patient requires an active, intensive rehabilitation therapy program due to:;ADL impairment resulting in caregiver dependence;coordinati on deficits;decline in functional status requiring daily skilled care;deficits affecting dominant side;deficits affecting non-dominant side;high level balance deficits;new / worsened cognitive deficits related to current diagnosis;ongoing intervention of multiple therapy disciplines;poor trunk control PT 6 Clicks Score: 8 Patient with ongoing PT goals, requiring max assist with bed mobility and mod-max assist to maintain midline sitting posture. Patient motivated throughout session, however due to poor sitting balance did not attempt standing this date. Patient remains appropriate for Acute Rehab at discharge to maximize strength and progress functional independence. Precautions/Activity Restrictions: Weight Bearing Restrictions;Fall Risk Precaution/Activity Restriction Comments: (R) sided weakness, (L) UE NWB in sling (per ortho, ok for AROM to LUE) Extremity With Weight Bearing Restricted: Left Upper Extremity Left Upper Extremity Weight Bearing Status: NWB Current Hospital Course: (L) TSA on 02/06/22 at OSH with recovery complicated by right sided weakness, aphasia, facial droop - (L) MCA stroke - prompting administration of TNK on 02/06 at 2230 and transfer to for NIL for (L) ICA/MCA stenting on 02/07/22 with restenosis and return to NIL later on 02/07/22. Reason for Hospital Admission: stroke after (L) TSA on 02/06/22. transfer from OSH Relevant Past Medical History: HTN, DM type 2, pAF on Eliquis (held for surgery) Response to Therapy Interventions: Good participation in activities, Multiple ongoing medical issues, Requires additional time to complete activities Continue skilled needs due to: Functional mobility/skill impairments, Safety concerns Physical Therapy Problem List: Education Deficit;Safety Deficits;Impaired Self Care;Pain;Decreased Activity Tolerance;Decreased Range Of Motion;Decreased Strength;Functional Mobility Impairment;Balance Impaired Treatment Interventions: Education;Self Care / Home Management;Energy Conservation Training;Joint Mobility;Strengthenin g;Functional Mobility Training;Balance Training;Neuromuscula r Re-education Plan for next visit: Bed mobility, Exercise instruction/handout, Sitting balance, Sit to Stand Transfers Home Environment Patient Lives With: Self/Alone Assistance Available: (unknown) Entry To Home: Stairs Number Of Stairs Into Home: 4 Number Of Stairs To Bed/Bath: 0 Equipment Owned: (unknown) Prior Functional Level: Within Functional Limits Prior Functional Level Comments: Per care management note, patient lives alone in a single level mobile home, independent prior to admission Patient Report: Patient agreeable to PT session, aphasic however more clear with yes no response CURRENT FUNCTIONAL STATUS: Most recent performance mobility performed during session in bold, other mobility completed during prior session and may no longer be correct or appropriate to complete. Current Functional Mobility Assist Level Additional Information Rolling Supine to Sit Maximal Assistance;Additional Information HOB slightly elevated, cues/assist to slide BLE towards edge of bed, BUE placed on lap with max assist at trunk to achieve upright Sit to Supine Maximal Assistance;Additional Information assist to control descent of trunk, patient able to cleear LLE at edge of bed, requiring physical assist to clear RLE Scooting Maximal Assistance;Additional Information assist with use of draw sheet to position hips forward for optimal sitting posture Sit to Stand Additional Information poor sitting balance this date, not appropriate to attempt Stand to Sit Bed to Chair Toilet/Commode Gait Stairs Curb Step Car Transfer Blank mejia indicate activity not attempted Balance: Static Sitting;Dynamic Sitting Static Sitting Balance: Poor Patient requires handhold support and moderate to maximal assistance to maintain position Dynamic Sitting Balance: Poor Patient unable to accept challenge or move without loss of balance Activity Tolerance: Sitting Activity Sitting Activity: sitting EOB, hand over hand assist for R (more content not included)... Normal [facility] THERAPY NT HNO ID: [id number] Author: Shelbi Mack, OTR/L Service: Occupational Therapy Author Type: Occupational Therapist Type: Therapy (PT/OT/Speech/Resp) Filed: 02/13/2022 1:32 PM Note Text: Occupational Therapy Evaluation SERVICE DATE: 02/13/2022 SERVICE TIME: 0937 to 1004 ROOM: [place] [address] Recommended Discharge Disposition: Acute Rehab Recommended Discharge Disposition Comments: Pt is currently functioning well below functional baseline at this time and requires increased assist with all ADL's and fucntional transfers. 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 Recommending AR once medically stable for dc. Anticipate that pt will tolerate 3 hours of skilled therapy a day. Recommended Discharge Disposition Due to: Patient requires an active, intensive rehabilitation therapy program due to:;ADL impairment resulting in caregiver dependence;decline in functional status requiring daily skilled care;deficits affecting dominant side;deficits affecting non-dominant side;high level balance deficits;less than 3/5 weakness noted in:;distal LE;distal UE;shoulder girdle;motor planning deficits;new / worsened cognitive deficits related to current diagnosis;ongoing intervention of multiple therapy disciplines;poor trunk control OT 6 Clicks Score: 9 Mr. Cai was seen for an occupational therapy evaluation this morning. Pt continues to demonstrate expressive asphasia, however, able to answer simple questions/communicati on. Pt with limited RUE AROM 2/2 to acute CVA as well as limited proximal ROM in LUE post reverse TSA. Pt had TSA completed at OSH, with no protocol available. OT reached out to ortho attending who stated gentle AROM is ok to LUE. Pt with noted increased swelling in BUE's. OT positioned pillows under BUE's to assist with decreasing swelling along with rolled washcloths in hands to promote a neutral position. Facilitated optimal room setup and frequent reorientation throughout to maximize alertness and awareness to situation. Sling was removed removed by OT to initiate gentle ROM in distal extremity. Facilitated education to pt and nursing on elevation of extremity, digit flexion/extension, wrist flexion/extension, supination/pronation, and elbow flexion/extension to assist with maximizing function and independence with Adl's including self feeding. Precautions/Activity Restrictions: Weight Bearing Restrictions;Fall Risk Precaution/Activity Restriction Comments: (R) sided weakness, (L) UE NWB in sling Extremity With Weight Bearing Restricted: Left Upper Extremity Left Upper Extremity Weight Bearing Status: NWB Current Hospital Course: (L) TSA on 02/06/22 at OSH with recovery complicated by right sided weakness, aphasia, facial droop - (L) MCA stroke - prompting administration of TNK on 02/06 at 2230 and transfer to for NIL for (L) ICA/MCA stenting on 02/07/22 with restenosis and return to NIL later on 02/07/22. Reason for Hospital Admission: stroke after (L) TSA on 02/06/22. transfer from OSH Relevant Past Medical History: HTN, DM type 2, pAF on Eliquis (held for surgery) Response to Therapy Interventions: Good participation in activities, Low activity tolerance, Requires additional time to complete activities, Needs frequent redirection or re-instruction Continue skilled needs due to: Cognitive deficits, Safety concerns, Functional impairment Occupational Therapy Problem List: Cognitive Deficit;Safety Deficits;Impaired Self Care;Decreased Activity Tolerance;Decreased Range Of Motion;Decreased Strength;Functional Mobility Impairment;Balance Impaired;Impaired Fine Motor Skills;PROM/Positioni ng Cognition/Communicati on Deficits Orientation Deficits: Not oriented to Place, Not oriented to Time, Not oriented to Situation Responsiveness: Awake Follows Commands: 1-step Commands, Cueing Needed Cueing to Follow Commands: Moderate Executive Function Deficits: Safety Awareness, Motor Planning, Problem Solving, Judgement, Sequencing Sequencing Deficit: Maximum impairment Judgement Deficit: Moderate impairment Problem Solving Deficit: Maximum impairment Motor Planning Deficit: Maximum impairment Safety Awareness Deficit: Maximum impairment Treatment Interventions: Education;Self Care / Home Management;Energy Conservation Training;Joint Mobility;Strengthenin g;Functional Mobility Training;Balance Training;Neuromuscula r Re-education;Cognitiv e Training Home Environment Patient Lives With: Self/Alone Assistance Available: (unknown) Entry To Home: Stairs Number Of Stairs Into Home: 4 Number Of Stairs To Bed/Bath: 0 Equipment Owned: (unknown) Prior Functional Level: Within Functional Limits Prior Functional Level Comments: Per care management note, patient lives alone in a single level mobile home, independent prior to admission Patient Report: Pt pleasant and ag (more content not included)... Normal [facility] Basic metabolic 2000 panelon 02-12-2022 Anion gap [Moles/Vol] 9 mmol/L Normal 9-18 [facility] Comment on above: Order Comment: Speci men Type: BLOOD SPECIMENOrdering Facility: [facility] Address: [address] [place] [address] Performed By: #### 2 4321-2, , 2776-05 ####[facility] LABORATORYCLIA [id number] [place] [address] [place] Calcium [Mass/Vol] 8.4 mg/dL Low 8.5-10.2 [facility] Comment on above: Order Comment: Speci men Type: BLOOD SPECIMENOrdering Facility: [facility] Address: [address] [place] [address] Performed By: #### 2 4321-2, , 2776-05 ####[facility] LABORATORYCLIA [id number] [place] [address] [place] Chloride [Moles/Vol] 112 mmol/L High 97-105 [facility] Comment on above: Order Comment: Speci men Type: BLOOD SPECIMENOrdering Facility: [facility] Address: [address] [place] [address] Performed By: #### 2 4321-2, , 2776-05 ####[facility] LABORATORYCLIA [id number] [place] [address] [place] CO2 [Moles/Vol] 25 mmol/L Normal 22-30 [facility] Comment on above: Order Comment: Speci men Type: BLOOD SPECIMENOrdering Facility: [facility] Address: [address] [place] [address] Performed By: #### 2 4321-2, , 2776-05 ####[facility]ORATORYCLIA [id number] [place] [address] [place] Creatinine [Mass/Vol] 0.76 mg/dL Normal 0.73-1.22 [facility] Comment on above: Order Comment: Suzanne rivera Type: BLOOD SPECIMENOrdering Facility: [facility] Address: [address] [place] [id number] Performed By: #### 2 4321-2, , 2776-05 ####[facility] LABORATORYCLIA [id number] [place] [id number] [place] ESTIMATED GLOMERULAR FILTRATION RATE 92 mL/min/1.73m??? Normal >=60 [facility] Comment on above: Order Comment: Suzanne rivera Type: BLOOD SPECIMENOrdering Facility: [facility] Address: [address] [place], [place] [id number] Result Comment: Ethan mated Glomerular Filtration Rate (eGFR) is calculated using the 2020 CKD-EPI creatinine equation. This equation utilizes serum creatinine, sex, and age as parameters. The creatinine assay has traceable calibration to isotope dilution-mass spectrometry. Refer to KDIGO guidelines for clinical interpretation. In patients with unstable renal function, e.g. those with acute kidney injury, the eGFR may not accurately reflect actual GFR. Performed By: #### 2 4321-2, , 2776-05 ####[facility] LABORATORYCLIA [id number] [place] [address] [place] Glucose [Mass/Vol] 103 mg/dL High 74-99 [facility] Comment on above: Order Comment: Suzanne rivera Type: BLOOD SPECIMENOrdering Facility: [facility] Address: [address] [place] [address] Result Comment: The [place] Diabetes [employer] (ADA) provides guidance for cutoff values for fasting glucose and random glucose. The ADA defines fasting as no caloric intake for at least 8 hours. Fasting plasma glucose results between 100 to 125 mg/dL indicate increased risk for diabetes (prediabetes). Fasting plasma glucose results greater than or equal to 126 mg/dL meet the criteria for diagnosis of diabetes. In the absence of unequivocal hyperglycemia, results should be confirmed by repeat testing. In a patient with classic symptoms of hyperglycemia or hyperglycemic crisis, random plasma glucose results greater than or equal to 200 mg/dL meet the criteria for diagnosis of diabetes. Reference: Standards of Medical Care in Diabetes 2016, [place] [employer]. Diabetes Care. 2016.39(Suppl 1). Performed By: #### 2 4321-2, 79760-2, 2776- ####[facility] LABORATORYCLIA [id number] [address] STATES OF [facility] Potassium [Moles/Vol] 3.4 mmol/L Low 3.7-5.1 [facility] Comment on above: Order Comment: Speci men Type: BLOOD SPECIMENOrdering Facility: [facility] Address: [address] [place] [address] Performed By: #### 2 4321-2, , 2776- ####[facility]ORATORYCLIA [id number] [address] Sodium [Moles/Vol] 146 mmol/L High 136-144 [facility] Comment on above: Order Comment: Speci men Type: BLOOD SPECIMENOrdering Facility: [facility] Address: [address] [place] [address] Performed By: #### 2 4321-2, , 2776-05 ####[facility] [id number] [address] Urea nitrogen [Mass/Vol] 24 mg/dL Normal 9-24 [facility] Comment on above: Order Comment: Speci men Type: BLOOD SPECIMENOrdering Facility: [facility] Address: [address] [place] [address] Performed By: #### 2 4321-2, , 2776-05 ####[facility] LABORATORYCLIA [id number] [address] OF [facility] CBC panel Auto (Bld)on 02-12 Erythrocyte distribution width (RBC) [Ratio] 14.8 % Normal 11.5-15.0 [facility] Comment on above: Order Comment: Speci men Type: BLOOD SPECIMENOrdering Facility: [facility] Address: [address] [place] [address] Performed By: #### 5 8410-2 ####[facility]ORATORYCLIA [id number] [address] Hematocrit (Bld) [Volume fraction] 22.2 % Low 39.0-51.0 [facility] Comment on above: Order Comment: Speci men Type: BLOOD SPECIMENOrdering Facility: [facility] Address: [address] [place] [address] Performed By: #### 5 8410-2 ####[facility]ORATORYCLIA [id number] [address] Hemoglobin (Bld) [Mass/Vol] 7.2 g/dL Low 13.0-17.0 [facility] Comment on above: Order Comment: Speci men Type: BLOOD SPECIMENOrdering Facility: [facility] Address: [address] [place] [address] Performed By: #### 5 8410-2 ####[facility]ORATORYCLIA [id number] [address] MCH (RBC) [Entitic mass] 31.6 pg Normal 26.0-34.0 [facility] Comment on above: Order Comment: Speci men Type: BLOOD SPECIMENOrdering Facility: [facility] Address: [address] [place] [address] Performed By: #### 5 8410-2 ####[facility]ORATORYCLIA [id number] [address] MCHC (RBC) [Mass/Vol] 32.4 g/dL Normal 30.5-36.0 [facility] Comment on above: Order Comment: Speci men Type: BLOOD SPECIMENOrdering Facility: [facility] Address: [address] [place] [address] Performed By: #### 5 8410-2 ####[facility]ORATORYCLIA [id number] [address] MCV (RBC) [Entitic vol] 97.4 fL Normal 80.0-100.0 [facility] Comment on above: Order Comment: Speci men Type: BLOOD SPECIMENOrdering Facility: [facility] Address: [address] [place] [address] Performed By: #### 5 8410-2 ####[facility]ORATORYCLIA [id number] [address] OF [place] Nucleated RBC (Bld) [#/Vol] 0.03 10*3/uL High <0.01 [facility] Comment on above: Order Comment: Speci men Type: BLOOD SPECIMENOrdering Facility: [facility] Address: [address] [place] [address] Performed By: #### 5 8410-2 ####[facility]ORATORYCLIA [id number] [address] [place] Platelet mean volume (Bld) [Entitic vol] 10.4 fL Normal 9.0-12.7 [facility] Comment on above: Order Comment: Speci men Type: BLOOD SPECIMENOrdering Facility: [facility] Address: [address] [place] [address] Performed By: #### 5 8410-2 ####[facility]ORATORYCLIA [id number] [address] [place] Platelets (Bld) [#/Vol] 207 10*3/uL Normal 150-400 [facility] Comment on above: Order Comment: Speci men Type: BLOOD SPECIMENOrdering Facility: [facility] Address: [address] [place] [address] Performed By: #### 5 8410-2 ####[facility]ORATORYCLIA [id number] [address] [place] RBC (Bld) [#/Vol] 2.28 10*6/uL Low 4.20-6.00 [facility] Comment on above: Order Comment: Speci men Type: BLOOD SPECIMENOrdering Facility: [facility] Address: [address] [place] [address] Performed By: #### 5 8410-2 ####[facility]ORATORYCLIA [id number] [address] OF [facility] WBC (Bld) [#/Vol] 6.56 10*3/uL Normal 3.70-11.00 [facility] Comment on above: Order Comment: Speci men Type: BLOOD SPECIMENOrdering Facility: [facility] Address: [address] [place] [address] Performed By: #### 5 8410-2 ####[facility]ORATORYCLIA [id number] [address] ECG COMPLETEon 02-12-2022 ECG COMPLETE Ventricular Rate : 106 BPM QRS Duration : 80 ms Q-T Interval : 338 ms QTC Calculation(Bazett) : 448 ms Calculated R [place] : 16 degrees Calculated T [place] : 7 degrees ATRIAL FLUTTER WITH VARIABLE BLOCK WITH RAPID VENTRICULAR RESPONSE ABNORMAL ECG NO PREVIOUS ECGS AVAILABLE Confirmed by MD AGUILAR VINAY ([id number]) on 02/13/2022 6:18:25 PM NAME : MIRI CAI PID : [id number] : 1945 Gender : Male Race : ORD : [id number] Procedure Date : Feb 12 2022 13:22:07 Edit Date : Feb 13 2022 18:18:28 Diagnosis: ATRIAL FLUTTER WITH VARIABLE BLOCK WITH RAPID VENTRICULAR RESPONSE ABNORMAL ECG NO PREVIOUS ECGS AVAILABLE Confirmed by MD AGUILAR VINAY ([id number]) on 02/13/2022 6:18:25 PM Test Reason : Arrhythmia Location : 1 : [place] [address] Overread By : MD AGUILAR VINAY Edited By : MD AGUILAR VINAY Referred By : , Acquired by : DAX MOSLEY Normal [facility] Magnesium SerPl-mCncon 02-12 Magnesium [Mass/Vol] 2.0 mg/dL Normal 1.7-2.3 [facility] Comment on above: Order Comment: Speci men Type: BLOOD SPECIMENOrdering Facility: [facility] Address: [address] [place] [address] Performed By: #### 2 4321-2, 55733-7, 2777-1 ####[facility]ORATORYCLIA [id number] [address] NUTRITIONon 02-12-2022 NUTRITION HNO ID: [id number] Author: Joceline Parker RD Service: Nutrition Therapy Author Type: Registered Dietitian Type: Nutrition Filed: 02/12/2022 11:48 AM Note Text: NUTRITION THERAPY PROGRESS NOTE SERVICE DATE: 02/12/2022 SERVICE TIME: 11:32 AM Nutrition Assessment: Recommended Malnutrition Diagnosis: No Malnutrition Identified (02/08/22 1456 : Joceline Parker RD) Estimated kilocalorie needs: 1675 - 2100 Calorie Calculation Method: 20-25 kcals/kg Estimated protein needs (grams): 84 - 126 Grams protein determined by: 1.0 - 1.5 g/kg Care Plan: Continue current diet L6 L2 Supplements: Mighty Shake No Sugar Added TID Intake is good per nursing notes and pt report. He does not remember getting any of the mighty shakes which are nectar thick. + BM this am (medium brown soft) + BM on 02/11 (medium brown soft) Monitor and Evaluation: Meet greater than 75% of estimated needs;Monitor bowel function;Monitor fluid/electrolyte balance;Monitor labs, I/Os, vital signs, weight Discharge Recommendations: Diet Diet: L6 L2 HH carb controlled diet OR texture per ST Interval History: Miri Cai has had occasional tachycardia. Needed straight cathed due to urinary retention. Pt has an MBSS on 02/11 and diet texture was upgraded. Pt still has expressive AND receptive language/communicatio n deficits per ST. Anthropometrics: Height: 179.1 cm (5' 10.5) (height estimate) Weight: 86.3 kg (190 lb 4.1 oz) Dosing Weight: 83.8 kg (184 lb 11.9 oz) Usual Weight: 83.9 kg (184 lb 15.5 oz) 12/17/21 Usual Weight Obtained From: Chart Review Body mass index is 26.91 kg/m?. Normal (for his age) Weight change percentage over time: stable wt since 12/17/21 Intake History: Current Nutrition Intake: Greater than 75% estimated energy needs Current Intake Over time: (4 days) Diet Orders (From admission, onward) Start Ordered 02/11/22 1430 DIET FOOD CONSISTENCY CONTROLLED START NOW Question Answer Comment Food Consistency SOFT AND BITE-SIZED (L 6) Liquid Consistency MILDLY THICK (L2)/NECTAR Feeding instructions for nursing crush meds in pureed 02/11/22 1416 02/08/22 1245 DIET SUPPLEMENTS START NOW Question Answer Comment Supplement 1 MIGHTY SHAKE REDUCED SUGAR CHOCOLATE Supplement 1 Frequency BREAKFAST Supplement 2 MIGHTY SHAKE REDUCED SUGAR STRAWBERRY BANANA Supplement 2 Frequency LUNCH Supplement 2 Frequency DINNER 02/08/22 1237 GI Symptoms: Swallowing problems MNT Billing: $ Reassessment: 1-15 minutes SIGNATURE: Joceline Parker RD PATIENT NAME: Miri Cai DATE: February 12, 2022 TIME: 11:32 AM 1074 Normal [facility] Phosphate SerPl-mCncon 02-12 Phosphate [Mass/Vol] 2.9 mg/dL Normal 2.7-4.8 [facility] Comment on above: Order Comment: Speci men Type: BLOOD SPECIMENOrdering Facility: [facility] Address: [address] [place] [address] Performed By: #### 2 4321-2, 17576-7, 2777-1 ####[facility]ATORYCLIA [id number] [address] THERAPY NTon 02-12-2022 THERAPY NT HNO ID: [id number] Author: Pricilla Camarena, PT Service: Physical Therapy Author Type: Physical Therapist Type: Therapy (PT/OT/Speech/Resp) Filed: 02/12/2022 10:29 AM Note Text: Physical Therapy Treatment SERVICE DATE: 02/12/2022 SERVICE TIME: 932 to 1001 ROOM: [id number] ([facility]) Recommended Discharge Disposition: Acute Rehab Recommended Discharge Disposition Comments: Patient s/p (L) TSA complicated by acute (L) MCA infarct post-op with right sided deficits and aphasia limiting his current function when he was previously living independently. Intensive therapies are most appropriate to maximize his functional outcomes. Recommended Discharge Disposition Due to: Patient requires an active, intensive rehabilitation therapy program due to:;ADL impairment resulting in caregiver dependence;coordinati on deficits;decline in functional status requiring daily skilled care;deficits affecting dominant side;deficits affecting non-dominant side;high level balance deficits;new / worsened cognitive deficits related to current diagnosis;ongoing intervention of multiple therapy disciplines;poor trunk control PT 6 Clicks Score: 8 Patient demonstrating progress towards goals this date with increased sitting tolerance and fluctuations of min-max assist to maintain sitting balance. Patient able to briefly maintain midline with min assist, however requires max assist to correct to midline. Patient able to maintain NWB precautions of left upper extremity throughout session. Patient well below baseline functioning and will greatly benefit from Acute Rehab at discharge to maximize strength and progress independence with functional mobility. Precautions/Activity Restrictions: Weight Bearing Restrictions;Fall Risk Precaution/Activity Restriction Comments: (R) sided weakness, (L) UE NWB in sling Extremity With Weight Bearing Restricted: Left Upper Extremity Left Upper Extremity Weight Bearing Status: NWB (sling) Current Hospital Course: (L) TSA on 02/06/22 at OSH with recovery complicated by right sided weakness, aphasia, facial droop - (L) MCA stroke - prompting administration of TNK on 02/06 at 2230 and transfer to for NIL for (L) ICA/MCA stenting on 02/07/22 with restenosis and return to NIL later on 02/07/22. Reason for Hospital Admission: stroke after (L) TSA on 02/06/22. transfer from OSH Relevant Past Medical History: HTN, DM type 2, pAF on Eliquis (held for surgery) Response to Therapy Interventions: Good participation in activities, Cognitive deficits, Multiple ongoing medical issues, Requires additional time to complete activities Continue skilled needs due to: Functional mobility/skill impairments, Safety concerns Physical Therapy Problem List: Education Deficit;Safety Deficits;Impaired Self Care;Pain;Decreased Activity Tolerance;Decreased Range Of Motion;Decreased Strength;Functional Mobility Impairment;Balance Impaired Treatment Interventions: Education;Self Care / Home Management;Energy Conservation Training;Joint Mobility;Strengthenin g;Functional Mobility Training;Balance Training;Neuromuscula r Re-education Plan for next visit: Bed mobility, Exercise instruction/handout, Sitting balance, Sit to Stand Transfers Home Environment Patient Lives With: Self/Alone Assistance Available: (unknown) Entry To Home: Stairs Number Of Stairs Into Home: 4 Number Of Stairs To Bed/Bath: 0 Prior Functional Level: Within Functional Limits Prior Functional Level Comments: Per care management note, patient lives alone in a single level mobile home, independent prior to admission Patient Report: Patient agreeable to PT session with head nod, aphasic throughout CURRENT FUNCTIONAL STATUS: Most recent performance mobility performed during session in bold, other mobility completed during prior session and may no longer be correct or appropriate to complete. Current Functional Mobility Assist Level Additional Information Rolling Supine to Sit Maximal Assistance;Additional Information HOB elevated 40 deg, cues/assist to slide RLE to edge of bed with patient assistint to move LLE, max assist at trunk to elevate into sitting, LUE supported in sling with therapist supporting RUE on lap until seated Sit to Supine Maximal Assistance;Additional Information (x1-2) assist to clear BLE at edge of bed and control descent of trunk Scooting Maximal Assistance;Additional Information assist with use of draw sheet to boost higher in bed Sit to Stand Additional Information poor sitting balance, did not attempt this date Stand to Sit Bed to Chair Toilet/Commode Gait Stairs Curb Step Car Transfer Blank mejia indicate activity not attempted Balance: Static Sitting;Dynamic Sitting Static Sitting Balance: Poor Patient requires handhold support and moderate to maximal assistance to maintain position Dynamic Sitting Balance: Poor Patient unable to accept challe (more content not included)... Normal [facility] ALLIED HEALTHon 02-11-2022 ALLIED HEALTH HNO ID: [id number] Author: RT Yolette(R) Service: Radiology Author Type: Technologist Type: Allied Health Filed: 02/11/2022 2:04 PM Note Text: Radiology Service Progress Note PATIENT NAME: Miri Cai DATE OF SERVICE: February 11, 2022 TIME: 1:46 PM PATIENT IDENTITY VERIFICATION COMPLETED USING TWO (2) IDENTIFIERS: Name and Date of confirmed by patient verbally and Name and Date of confirmed by identification band. FALL SCREENING: Has the patient had 2 falls in the last year or 1 fall with injury or currently using an Ambulatory Assistive Device (Walker, Cane, Wheelchair, Crutches, etc.)? Inpatient: Screened on floor PATIENT GENDER DATA: Male PATIENT RELEVANT IMPLANT DATA REVIEWED: Not Applicable RADIOLOGY DEPARTMENT: General X-ray: Exam(s) Completed: GI/ Procedure(s): Modified barium swallow with barium contrast HOB UPRIGHT AT LEAST 30 DEGREES UNTIL 3PM PERIPHERAL IV DATA: Not applicable SIGNED BY: RT Yolette(R) February 11, 2022 1:46 PM Normal [facility] Basic metabolic 2000 panelon 02-11-2022 Anion gap [Moles/Vol] 11 mmol/L Normal 9-18 [facility] Comment on above: Order Comment: Speci men Type: BLOOD SPECIMENOrdering Facility: [facility] Address: [address] [place] [address] Performed By: #### 2 777-1, , ####[facility]ATORYCLIA [id number] [place] [address] [place] Calcium [Mass/Vol] 8.5 mg/dL Normal 8.5-10.2 [facility] Comment on above: Order Comment: Speci men Type: BLOOD SPECIMENOrdering Facility: [facility] Address: [address] [place] [address] Performed By: #### 2 777-1, , ####[facility]ORATORYCLIA [id number] [place] [address] [place] Chloride [Moles/Vol] 110 mmol/L High 97-105 [facility] Comment on above: Order Comment: Speci men Type: BLOOD SPECIMENOrdering Facility: [facility] Address: [address] [place] [address] Performed By: #### 2 777-1, , ####[facility]ATORYCLIA [id number] [place] [address] [place] CO2 [Moles/Vol] 25 mmol/L Normal 22-30 [facility] Comment on above: Order Comment: Speci men Type: BLOOD SPECIMENOrdering Facility: [facility] Address: [address] [place] [address] Performed By: #### 2 777-1, , ####[facility] LABORATORYCLIA [id number] [place] [address] [place] Creatinine [Mass/Vol] 0.79 mg/dL Normal 0.73-1.22 [facility] Comment on above: Order Comment: Speci men Type: BLOOD SPECIMENOrdering Facility: [facility] Address: [address] [place] [address] Performed By: #### 2 777-1, , ####[facility] LABORATORYCLIA [id number] [address] [place] ESTIMATED GLOMERULAR FILTRATION RATE 91 mL/min/1.73m??? Normal >=60 [facility] Comment on above: Order Comment: Suzanne rivera Type: BLOOD SPECIMENOrdering Facility: [facility] Address: [address] [place] [address] Result Comment: Ethan mated Glomerular Filtration Rate (eGFR) is calculated using the 2020 CKD-EPI creatinine equation. This equation utilizes serum creatinine, sex, and age as parameters. The creatinine assay has traceable calibration to isotope dilution-mass spectrometry. Refer to KDIGO guidelines for clinical interpretation. In patients with unstable renal function, e.g. those with acute kidney injury, the eGFR may not accurately reflect actual GFR. Performed By: #### 2 777-1, , 96223-7 ####[facility]ORATORYCLIA [id number] [place] [address] [place] Glucose [Mass/Vol] 159 mg/dL High 74-99 [facility] Comment on above: Order Comment: Suzanne rivera Type: BLOOD SPECIMENOrdering Facility: [facility] Address: [address] [place] [address] Result Comment: The [place] Diabetes [employer] (ADA) provides guidance for cutoff values for fasting glucose and random glucose. The ADA defines fasting as no caloric intake for at least 8 hours. Fasting plasma glucose results between 100 to 125 mg/dL indicate increased risk for diabetes (prediabetes). Fasting plasma glucose results greater than or equal to 126 mg/dL meet the criteria for diagnosis of diabetes. In the absence of unequivocal hyperglycemia, results should be confirmed by repeat testing. In a patient with classic symptoms of hyperglycemia or hyperglycemic crisis, random plasma glucose results greater than or equal to 200 mg/dL meet the criteria for diagnosis of diabetes. Reference: Standards of Medical Care in Diabetes 2016, [place] [employer]. Diabetes Care. 2016.39(Suppl 1). Performed By: #### 2 777-1, , ####[facility]ORATORYCLIA [id number] [address] STATES OF [facility] Potassium [Moles/Vol] 2.9 mmol/L Low 3.7-5.1 [facility] Comment on above: Order Comment: Speci men Type: BLOOD SPECIMENOrdering Facility: [facility] Address: [address] [place] [address] Performed By: #### 2 777-1, , ####[facility]ORATORYCLIA [id number] [address] STATES OF [facility] Sodium [Moles/Vol] 146 mmol/L High 136-144 [facility] Comment on above: Order Comment: Speci men Type: BLOOD SPECIMENOrdering Facility: [facility] Address: [address] [place] [address] Performed By: #### 2 777-1, , ####[facility] [id number] [address] STATES OF [facility] Urea nitrogen [Mass/Vol] 22 mg/dL Normal 9-24 [facility] Comment on above: Order Comment: Speci men Type: BLOOD SPECIMENOrdering Facility: [facility] Address: [address] [place] [address] Performed By: #### 2 777-1, , 37939-1 ####[facility]ORATORYCLIA [id number] [address] OF [facility] CBC panel Auto (Bld)on 02-11 Erythrocyte distribution width (RBC) [Ratio] 14.6 % Normal 11.5-15.0 [facility] Comment on above: Order Comment: Speci men Type: BLOOD SPECIMENOrdering Facility: [facility] Address: [address] [place] [address] Performed By: #### 5 8410-2 ####[facility]ORATORYCLIA [id number] [address] Hematocrit (Bld) [Volume fraction] 23.8 % Low 39.0-51.0 [facility] Comment on above: Order Comment: Speci men Type: BLOOD SPECIMENOrdering Facility: [facility] Address: [address] [place] [address] Performed By: #### 5 8410-2 ####[facility]ORATORYCLIA [id number] [address] OF [facility] Hemoglobin (Bld) [Mass/Vol] 7.6 g/dL Low 13.0-17.0 [facility] Comment on above: Order Comment: Speci men Type: BLOOD SPECIMENOrdering Facility: [facility] Address: [address] [place] [address] Performed By: #### 5 8410-2 ####[facility]ORATORYCLIA [id number] [address] MCH (RBC) [Entitic mass] 31.0 pg Normal 26.0-34.0 [facility] Comment on above: Order Comment: Speci men Type: BLOOD SPECIMENOrdering Facility: [facility] Address: [address] [place] [address] Performed By: #### 5 8410-2 ####[facility]ORATORYCLIA [id number] [address] [place] MCHC (RBC) [Mass/Vol] 31.9 g/dL Normal 30.5-36.0 [facility] Comment on above: Order Comment: Speci men Type: BLOOD SPECIMENOrdering Facility: [facility] Address: [address] [place] [address] Performed By: #### 5 8410-2 ####[facility]ORATORYCLIA [id number] [address] MCV (RBC) [Entitic vol] 97.1 fL Normal 80.0-100.0 [facility] Comment on above: Order Comment: Speci men Type: BLOOD SPECIMENOrdering Facility: [facility] Address: [address] [address] Performed By: #### 5 8410-2 ####[facility]ORATORYCLIA [id number] [address] [place] Nucleated RBC (Bld) [#/Vol] 10*3/uL Normal <0.01 [facility] Comment on above: Order Comment: Speci men Type: BLOOD SPECIMENOrdering Facility: [facility] Address: [address] [place] [address] Performed By: #### 5 8410-2 ####[facility]ORATORYCLIA [id number] [address] [place] Platelet mean volume (Bld) [Entitic vol] 10.4 fL Normal 9.0-12.7 [facility] Comment on above: Order Comment: Speci men Type: BLOOD SPECIMENOrdering Facility: [facility] Address: [address] [place] [address] Performed By: #### 5 8410-2 ####[facility]ORATORYCLIA [id number] [address] [place] Platelets (Bld) [#/Vol] 217 10*3/uL Normal 150-400 [facility] Comment on above: Order Comment: Speci men Type: BLOOD SPECIMENOrdering Facility: [facility] Address: [address] [place] [address] Performed By: #### 5 8410-2 ####[facility]ATORYCLIA [id number] [address] [place] RBC (Bld) [#/Vol] 2.45 10*6/uL Low 4.20-6.00 [facility] Comment on above: Order Comment: Speci men Type: BLOOD SPECIMENOrdering Facility: [facility] Address: [address] [place] [address] Performed By: #### 5 8410-2 ####[facility]ORATORYCLIA [id number] [place] [address] [place] WBC (Bld) [#/Vol] 7.61 10*3/uL Normal 3.70-11.00 [facility] Comment on above: Order Comment: Speci men Type: BLOOD SPECIMENOrdering Facility: [facility] Address: [address] [place] [address] Performed By: #### 5 8410-2 ####[facility]ATORYCLIA [id number] [address] Magnesium SerPl-mCncon 02-11 Magnesium [Mass/Vol] 2.2 mg/dL Normal 1.7-2.3 [facility] Comment on above: Order Comment: Speci men Type: BLOOD SPECIMENOrdering Facility: [facility] Address: [address] [place] [address] Performed By: #### 2 777-1, 44099-6, 97294-7 ####[facility]ORATORYCLIA [id number] [address] OPERATIVE NOon 02-11-2022 OPERATIVE NO HNO ID: [id number] Author: Roby Alexander MD Service: ? Author Type: Physician Type: Operative Report Filed: 02/20/2022 7:50 PM Note Text: [facility] - Operative Report MIRI CAI : 1945 AGE: 76. SEX: M PATIENT TYPE: I HOSP SVC: ICU LOCATION: [facility] ATTENDING PHYSICIAN: RYAN PAL CSN NUMBER: [id number] DATE OF SURGERY/PROCEDURE: 02/07/2022 INCISION/PROCEDURE START TIME: 05:25 p.m. INCISION CLOSE/PROCEDURE END TIME: 06:25 p.m. 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 POSTOPERATIVE DIAGNOSIS: 1. Occlusion of the left internal carotid artery stent. 2. 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 SURGEON: Roby Alexander MD DISTILLATION OPERATOR HELPER: None. SURGERY/PROCEDURE: Left internal carotid and middle cerebral artery thrombectomy. ANESTHESIA: Conscious sedation. INFORMED CONSENT: Consent form obtained from the patient's sister over the phone. The patient was not consentable. COMPLICATIONS: None. ESTIMATED BLOOD LOSS: Less than 5 mL. TOTAL TIME: The patient required 1-hour of conscious sedation provided by the operating physician. VESSEL CATHETERIZED: 1. Left common carotid artery. 2. Left internal carotid artery. VESSEL IMAGES: 1. Frontal and lateral left common carotid bifurcation angiogram through left common carotid artery injection. 2. Frontal and lateral posterior fossa angiogram through left internal carotid artery injection. CAT scan at the end of the procedure; head CAT scan was obtained to ensure the absence of intraparenchymal hematoma. INDICATION FOR PROCEDURE: This is a 76-year-old gentleman, who underwent approximately 14 hours ago successful stenting of the left common carotid artery and thrombectomy of the left middle cerebral artery. Patient significantly improved following the thrombectomy. Upon arrival, the patient's NIH Stroke Scale was 18. Following the initial thrombectomy, the patient improved and NIH Stroke Scale was 8. Now, the patient's NIH Stroke Scale is 15. Carotid ultrasound was obtained urgently demonstrating occlusion of the stent at the left internal carotid artery. At this time, patient was taken back to the angio suite to recanalization of the left internal carotid artery and perform thrombectomy if needed to enhance the patient's chances of meaningful recovery. DESCRIPTION OF PROCEDURE: The patient was placed on the angiography table in usual supine position. Both groins were prepped and draped in usual sterile fashion. After giving the patient 10 mL of 2% lidocaine in the right groin, access to right common femoral artery was obtained using micropuncture system. After serial dilatation, a 7-Turkmen shuttle sheath was advanced with its tip in the descending thoracic aorta. The sheath was flushed and hooked to the heparinized saline flush. Through the shuttle sheath, a 5-Turkmen JB1 diagnostic catheter was advanced and selectively placed in the left common carotid artery. Frontal and lateral left common carotid bifurcation angiogram was obtained. SUPERVISION AND INTERPRETATION: Frontal and lateral left common carotid angiogram obtained through left common carotid artery injection demonstrated interval total occlusion of the left internal carotid artery within the stent and retrograde fashion up to the left common carotid bifurcation. THERAPEUTIC INTERVENTION: With the diagnostic catheter in the left common carotid artery, shuttle sheath was advanced to the distal left common carotid artery. At this time, a wire was advanced through the fresh clot in the internal carotid artery and pulled back. Roadmap was obtained, demonstrated a faint tract within the stent inside the clot. At this time, microcatheter and microwire were advanced through this tract and with a microcatheter in position in the left internal carotid artery, microwire was removed. The microcatheter was flushed and injection of contrast material in the frontal and lateral position confirmed its intraluminal position. At this time, an Emboshield 7.2 mm was advanced in parallel with the microcatheter up to the distal tip of internal carotid artery. The microcatheter was removed and the Emboshield was deployed. Viatrac balloon 5 x 20 mm was advanced up to the level of the previously placed stent. Gradual inflation of the balloon up to nominal pressure was obtained and then pulled back to the left common carotid bifurcation. The angioplasty was repeated. Followup angiogram was obtained, demonstrated interval total recanalization of the previously placed stent with normal antegrade flow. However, there was a focal area of dissection just distal and just proximal to the stent. At this time over the Emboshield microwire, Xact stent 7-7 x 20 mm was advanced and selectively placed from the distal end of the existing stent distally into the dist (more content not included)... Normal [facility] OPERATIVE NO HNO ID: [id number] Author: Roby Alexander MD Service: ? Author Type: Physician Type: Operative Report Filed: 02/20/2022 7:51 PM Note Text: [facility] - Operative Report MIRI CAI : 1945 AGE: 76. SEX: M PATIENT TYPE: I HOSP SVC: ICU LOCATION: [facility] ATTENDING PHYSICIAN: RYAN PAL CSN NUMBER: [id number] DATE OF SURGERY/PROCEDURE: 02/07/2022 INCISION/PROCEDURE START TIME: 01:35 p.m. INCISION CLOSE/PROCEDURE END TIME: 03:00 p.m. PREOPERATIVE DIAGNOSIS: Left hemispheric stroke. POSTOPERATIVE DIAGNOSIS: Left hemispheric stroke. SURGEON: Roby Alexander MD DISTILLATION OPERATOR HELPER: None. SURGERY/PROCEDURE: Cerebral angiogram and left MCA thrombectomy. ANESTHESIA: General anesthesia. INFORMED CONSENT: Consent form obtained from the patient's sister. Patient is obtunded and aphasic. COMPLICATIONS: None. ESTIMATED BLOOD LOSS: Less than 20 mL. TOTAL TIME: The patient required 1-hour and 25 minutes of Neurointerventional Suite Lab. VESSEL CATHETERIZED: 1. Right vertebral artery. 2. Right common carotid artery. 3. Right internal carotid artery. 4. Left common carotid artery. 5. Left internal carotid artery. VESSEL IMAGED: 1. Frontal and lateral posterior fossa angiogram through right vertebral artery injection. 2. Frontal and lateral right common carotid bifurcation angiogram through right common carotid artery injection. 3. Frontal and lateral full cerebral angiogram through right internal carotid artery injection. 4. Frontal and lateral left common carotid bifurcation angiogram through left common carotid artery injection. 5. Frontal and lateral full cerebral angiogram through left internal carotid artery injection. INDICATION FOR PROCEDURE: This is a 76-year-old gentleman who underwent yesterday in outside institution left hip surgery. He is known to have atrial fibrillation and antithrombotic medication was stopped 5 days ago in preparation for the surgery. The surgery went well. However, in the afternoon while the patient was going to the bathroom, he fell and was found to have significant right-sided weakness and aphasia with NIH stroke scale of 18. The patient was given TNK and transferred to our institution for thrombectomy. Patient arrived to our institution wheelchair van driver on February 07. He had surgery on February 06. The patient arrived to us on wheelchair van driver at 1 hour 20 minutes a.m. The patient is now to undergo thrombectomy to enhance the patient's chances of meaningful recovery due to the fact the CT angiogram demonstrated occlusion of the left M1 segment and Upon arrival, the patient did not demonstrate any significant improvement following the TNK administration outside institution. DESCRIPTION OF PROCEDURE: The patient was placed on the angiography table in usual supine position. Both groins were prepped and draped in usual sterile fashion. Decision is to proceed with incision and intubate the patient. At the same time, access to the right common femoral artery was obtained using micropuncture system. After serial dilatation, a 7-Turkmen shuttle sheath was advanced with its tip in the descending thoracic aorta. The sheath was flushed and hooked to the heparinized saline flush. Through the shuttle sheath, a 5-Turkmen JB1 diagnostic catheter was advanced and selectively placed in the right vertebral artery. Frontal and lateral posterior angiogram was obtained. Diagnostic catheter was selectively placed in the right common carotid artery. Frontal and lateral right common carotid angiogram was obtained. Diagnostic catheter was advanced and selectively placed in the right internal carotid artery. Frontal and lateral full cerebral angiogram was obtained. Diagnostic catheter was advanced and selectively placed in the left common carotid artery. Frontal and lateral left common carotid artery bifurcation angiogram was obtained followed by full cerebral angiography. SUPERVISION AND INTERPRETATION: The frontal and lateral posterior fossa angiogram obtained through the right vertebral artery injection demonstrated normal intracranial right vertebral artery. Basilar artery is also normal. Through the left posterior cerebral artery, multiple pier collateral are visualized supplying in the retrograde fashion, the inferior division of the left middle cerebral artery. The frontal and lateral right common carotid bifurcation angiogram obtained through right common carotid injection demonstrated no abnormality. The full cerebral angiogram obtained through right internal carotid injection demonstrated normal intracranial circulation of the right hemisphere. There is a cross-filling to the right hemisphere through this injection feeding in antegrade fashion the left anterior cerebral artery and in the retrograde fashion significant territory of the left middle cerebral artery, especially the superior (more content not included)... Normal [facility] POTASSIUM BLDon 02-11-2022 Potassium [Moles/Vol] 3.7 mmol/L Normal 3.7-5.1 [facility] Comment on above: Order Comment: Suzanne rivera Type: BLOOD SPECIMENOrdering Facility: [facility] Address: [address] [place] [address] Performed By: #### K 1 ####[facility]ORATORYCLIA [id number] [place] [address] [place] Phosphate SerPl-mCncon 02-11 Phosphate [Mass/Vol] 2.7 mg/dL Normal 2.7-4.8 [facility] [facility] Comment on above: Order Comment: Suzanne rivera Type: BLOOD SPECIMENOrdering Facility: [facility] Address: [address] [place] [address] Performed By: #### 2 777-1, 12199-6, 80167-6 ####[facility] LABORATORYCLIA [id number] [place] [address] [place] THERAPY NTon 02-11-2022 THERAPY NT HNO ID: [id number] Author: Verito Cutler CCC-OBSTETRICS SCRUB NURSE Service: Speech/Swallow Author Type: Speech Language Pathologist Type: Therapy (PT/OT/Speech/Resp) Filed: 02/11/2022 2:55 PM Note Text: Speech Therapy MBSS Evaluation SERVICE DATE: 02/11/2022 SERVICE TIME: 1345 to 1415 ROOM: [id number] ([facility]/ [facility]) IMPRESSION: Evidence of: Oropharyngeal dysphagia - aspiration with thin liquids with use of straw; greater success with nectar-thick liquid. Able to chew and swallow a soft solid. Recommend upgrade to soft and bite sized diet but keep the nectar-thick liquids. An elevated risk for aspiration: Yes; with thin liquids Swallow Efficiency: Impaired Diet Recommendations: Soft and Bite-Sized IDDSI Level 6 Mildly Thick Liquids IDDSI Level 2 (Beemer Thick) Medications whole in puree (pudding/applesauce) Swallowing Precautions Recommendations: Alert (patient should be fully alert for P.O. intake) 1:1 Supervision Sit upright 90 degrees for all PO Small Bite/Sip No straws Feed / Eat at a slow rate Nursing Recommendations: See swallow guide posted in patients room;Routine Rigid Oral Hygiene;Reinforce use of swallowing strategies;Use suction toothbrush with patient Instrumental Swallow Assessment Recommendations: (MBS completed 02/11/22) Recommended Discharge Disposition: Acute Rehab Justification for Recommended Discharge Disposition: dysphagia requiring frequent assessment and diet modification;expressi ve language/communicatio n deficits;receptive language/communicatio n deficits Current Hospital Course: CT Brain 02-06:no acute intracranial pathology, XR Shoulder limited 2V AP/TRULE APLT-patient 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 Reason for Hospital Admission: stroke after (L) TSA on 02/06/22. transfer from [facility] Rehabilitation Precautions: Modified Diet;Aspiration Precautions;Dysphagia ;Cognitive Linguistics Deficits;Communicatio n Deficits Reason for Speech Therapy Consult: swallowing and speech evaluation Relevant Past Medical History: DM2, HTN Response to Therapy Interventions: Aspiration Risk, Aphasia, Good Participation in activities Continue skilled OBSTETRICS SCRUB NURSE services due to : Dysphagia Speech Therapy Problem List: Dysphagia Patient Report: minimal verbalization Current Status Oral Hygiene: Clear, moist oral cavity;Oral Health Assessment Tool (OHAT) Dentition: Retains Natural Dentition;Miscellaneo us Missing Teeth Current Feeding Method: Oral Current Diet Textures: Pureed IDDSI Level 4;Mildly Thick Liquids IDDSI Level 2 (Beemer Thick);Medications crushed in puree (pudding/applesauce) Current Level Of Communication: Aphasia;Verbal;[place] h[place] Current Management Of Secretions: Able to expectorate adequately Oral Motor Exam: Within Functional Limits Except Facial Symmetry Impaired: Right Labial Assessment: Poor labial seal Labial ROM Impaired: Right Labial Strength Impaired: Right Lingual ROM Impaired: Right Lingual Strength Impaired: Right Palatal Elevation: Within Functional Limits Swallow Position Of Patient During Assessment: Upright In Chair Compensatory Strategies Utilized During Assessment: Alert (patient should be fully alert for P.O. intake), Sit upright 90 degrees for all PO, Supervision/Assistanc e for meals., Small Bite/Sip, No straws Instrumental Swallow Assessment Instrumental Swallow Assessment Type: Modified Barium Swallow Study Modified Barium Swallow Views: Lateral position MBS Consistencies Tested: Thin Barium Liquids, Mildly Thick Barium Liquids (Beemer Thick), Pureed with Barium Paste, Solid with Barium Paste Oral Phase: Lip Closure: Interlabial escape/no progression to anterior lip Tongue Control During Bolus Hold: Cohesive bolus between tongue to palatal seal, Escape to lateral buccal cavity and/or floor of mouth Bolus Preparation/Masticati on: Slow prolonged mastication with complete re-collection necessary Bolus Transport/Lingual Motion: Delayed initiation of tongue motion for A-P movement of the bolus Oral Residue: Trace residue lining oral structures Initiation Of Pharyngeal Swallow: Bolus head at pit of pyriforms Pharyngeal Phase: Soft Palate Elevation: No bolus between soft palate/pharyngeal wall Laryngeal Elevation: Complete superior movement of thyroid cartilage with contact of arytenoids to epiglottic petiole Anterior Hyoid Excursion: Complete anterior movement Epiglottic Movement: Complete inversion Laryngeal Vestibular Closure/Height of the Swallow: Complete - no air/contrast in laryngeal vestibule Pharyngeal Stripping Wave: Present, however, diminished Pharyngoesophageal Segment Opening: Partial distension/partial duration with partial obstruction of flow of bolus (see image below) Tongue Base Retraction: Trace column of contrast or air between tongue base and pharyngeal wall (more content not included)... Normal [facility] XR MOD BARIUM SWALLOW W BRIANNA Valdez 02-11-2022 XR MOD BARIUM SWALLOW W SPEECH * * *Final Report* * * DATE OF EXAM: Feb 11 2022 2:13PM [id number] - XR MOD BARIUM SWALLOW W SPEECH / PROCEDURE REASON: Aspiration * * * * Physician Interpretation * * * * MOD BARIUM SWALLOW W SPEECH HISTORY: Indication: Dysphagia, unexplained TECHNIQUE: Views obtained: XR MOD BARIUM SWALLOW W SPEECH. Study was performed by the petrous therapist. 2 minute 30 seconds fluoroscopic time, 15 total images and 30 cc of barium was administered Comparison: NONE. RESULT/ impression: Please refer to speech therapist report for diagnostic discussion Operations Recruiter: EMMA Transcribe Date/Time: Feb 11 2022 4:30P Dictated by : INO STEVENSON MD This examination was interpreted and the report reviewed and electronically signed by: INO STEVENSON MD on Feb 11 2022 4:30PM EST [id number] N Normal [facility] Basic metabolic 2000 panelon 02-10-2022 Anion gap [Moles/Vol] 9 mmol/L Normal 9-18 [facility] Comment on above: Order Comment: Speci miguel Type: BLOOD SPECIMENOrdering Facility: [facility] Address: [address] [place] [address] Performed By: #### 2 4321-2, , 2776-05 ####[facility] LABORATORYCLIA [id number] [place] [address] [place] Calcium [Mass/Vol] 8.6 mg/dL Normal 8.5-10.2 [facility] Comment on above: Order Comment: Speci miguel Type: BLOOD SPECIMENOrdering Facility: [facility] Address: [address] [place] [address] Performed By: #### 2 4321-2, , 2776-05 ####[facility] LABORATORYCLIA [id number] [place] [address] [place] Chloride [Moles/Vol] 109 mmol/L High 97-105 [facility] Comment on above: Order Comment: Speci men Type: BLOOD SPECIMENOrdering Facility: [facility] Address: [address] [place] [address] Performed By: #### 2 4321-2, , 2776-05 ####[facility] LABORATORYCLIA [id number] [place] [address] [place] CO2 [Moles/Vol] 26 mmol/L Normal 22-30 [facility] Comment on above: Order Comment: Speci men Type: BLOOD SPECIMENOrdering Facility: [facility] Address: [address] [place] [address] Performed By: #### 2 4321-2, , 2776-05 ####[facility] LABORATORYCLIA [id number] [place] [address] [place] Creatinine [Mass/Vol] 0.70 mg/dL Low 0.73-1.22 [facility] Comment on above: Order Comment: Speci men Type: BLOOD SPECIMENOrdering Facility: [facility] Address: [address] [place] [address] Performed By: #### 2 4321-2, , 2776-05 ####[facility] [id number] [address] [place] ESTIMATED GLOMERULAR FILTRATION RATE 94 mL/min/1.73m??? Normal >=60 [facility] Comment on above: Order Comment: Speci men Type: BLOOD SPECIMENOrdering Facility: [facility] Address: [address] [place] [address] Result Comment: Ethan mated Glomerular Filtration Rate (eGFR) is calculated using the 2020 CKD-EPI creatinine equation. This equation utilizes serum creatinine, sex, and age as parameters. The creatinine assay has traceable calibration to isotope dilution-mass spectrometry. Refer to KDIGO guidelines for clinical interpretation. In patients with unstable renal function, e.g. those with acute kidney injury, the eGFR may not accurately reflect actual GFR. Performed By: #### 2 4321-2, , 2776-05 ####[facility] LABORATORYCLIA [id number] [place] [id number] [place] Glucose [Mass/Vol] 122 mg/dL High 74-99 [facility] Comment on above: Order Comment: Speci men Type: BLOOD SPECIMENOrdering Facility: [facility] Address: [address] [place] [address] Result Comment: The [place] Diabetes [employer] (ADA) provides guidance for cutoff values for fasting glucose and random glucose. The ADA defines fasting as no caloric intake for at least 8 hours. Fasting plasma glucose results between 100 to 125 mg/dL indicate increased risk for diabetes (prediabetes). Fasting plasma glucose results greater than or equal to 126 mg/dL meet the criteria for diagnosis of diabetes. In the absence of unequivocal hyperglycemia, results should be confirmed by repeat testing. In a patient with classic symptoms of hyperglycemia or hyperglycemic crisis, random plasma glucose results greater than or equal to 200 mg/dL meet the criteria for diagnosis of diabetes. Reference: Standards of Medical Care in Diabetes 2016, [place] [employer]. Diabetes Care. 2016.39(Suppl 1). Performed By: #### 2 4321-2, , 2776-05 ####[facility] LABORATORYCLIA [id number] [place] [address] [place] Potassium [Moles/Vol] 3.1 mmol/L Low 3.7-5.1 [facility] Comment on above: Order Comment: Suzanne rivera Type: BLOOD SPECIMENOrdering Facility: [facility] Address: [address] [place] [address] Performed By: #### 2 4321-2, , 2776-05 ####[facility] LABORATORYCLIA [id number] [place] [address] [place] Sodium [Moles/Vol] 144 mmol/L Normal 136-144 [facility] Comment on above: Order Comment: Suzanne rivera Type: BLOOD SPECIMENOrdering Facility: [facility] Address: [address] [address] Performed By: #### 2 4321-2, , 2776-05 ####[facility] LABORATORYCLIA [id number] [place] [address] [place] Urea nitrogen [Mass/Vol] 18 mg/dL Normal 9-24 [facility] Comment on above: Order Comment: Suzanne rivera Type: BLOOD SPECIMENOrdering Facility: [facility] Address: [address] [address] Performed By: #### 2 4321-2, , 2776-05 ####[facility] LABORATORYCLIA [id number] [address] CBC panel Auto (Bld)on 02-10 Erythrocyte distribution width (RBC) [Ratio] 14.4 % Normal 11.5-15.0 [facility] Comment on above: Order Comment: Speci men Type: BLOOD SPECIMENOrdering Facility: [facility] Address: [address] [place] [address] Performed By: #### 5 8410-2 ####[facility] LABORATORYCLIA [id number] [address] Hematocrit (Bld) [Volume fraction] 23.9 % Low 39.0-51.0 [facility] Comment on above: Order Comment: Speci men Type: BLOOD SPECIMENOrdering Facility: [facility] Address: [address] [place] [address] Performed By: #### 5 8410-2 ####[facility] LABORATORYCLIA [id number] [address] Hemoglobin (Bld) [Mass/Vol] 7.9 g/dL Low 13.0-17.0 [facility] Comment on above: Order Comment: Speci men Type: BLOOD SPECIMENOrdering Facility: [facility] Address: [address] [place] [address] Performed By: #### 5 8410-2 ####[facility] LABORATORYCLIA [id number] [address] STATES [facility] MCH (RBC) [Entitic mass] 31.6 pg Normal 26.0-34.0 [facility] Comment on above: Order Comment: Speci men Type: BLOOD SPECIMENOrdering Facility: [facility] Address: [address] [place] [address] Performed By: #### 5 8410-2 ####[facility] LABORATORYCLIA [id number] [address] MCHC (RBC) [Mass/Vol] 33.1 g/dL Normal 30.5-36.0 [facility] Comment on above: Order Comment: Speci men Type: BLOOD SPECIMENOrdering Facility: [facility] Address: [address] [place] [address] Performed By: #### 5 8410-2 ####[facility] LABORATORYCLIA [id number] [address] OF [facility] MCV (RBC) [Entitic vol] 95.6 fL Normal 80.0-100.0 [facility] Comment on above: Order Comment: Speci men Type: BLOOD SPECIMENOrdering Facility: [facility] Address: [address] [place] [address] Performed By: #### 5 8410-2 ####[facility] LABORATORYCLIA [id number] [address] OF [facility] Nucleated RBC (Bld) [#/Vol] 10*3/uL Normal <0.01 [facility] Comment on above: Order Comment: Speci men Type: BLOOD SPECIMENOrdering Facility: [facility] Address: [address] [place] [address] Performed By: #### 5 8410-2 ####[facility] LABORATORYCLIA [id number] [address] Platelet mean volume (Bld) [Entitic vol] 10.3 fL Normal 9.0-12.7 [facility] Comment on above: Order Comment: Speci men Type: BLOOD SPECIMENOrdering Facility: [facility] Address: [address] [place], [place] [address] Performed By: #### 5 8410-2 ####[facility] LABORATORYCLIA [id number] [address] Platelets (Bld) [#/Vol] 200 10*3/uL Normal 150-400 [facility] Comment on above: Order Comment: Speci men Type: BLOOD SPECIMENOrdering Facility: [facility] Address: [address] [place], [place] [address] Performed By: #### 5 8410-2 ####[facility] LABORATORYCLIA [id number] [place] [address] [place] RBC (Bld) [#/Vol] 2.50 10*6/uL Low 4.20-6.00 [facility] Comment on above: Order Comment: Speci men Type: BLOOD SPECIMENOrdering Facility: [facility] Address: [address] [place] [address] Performed By: #### 5 8410-2 ####[facility] LABORATORYCLIA [id number] [place] [address] [place] WBC (Bld) [#/Vol] 7.81 10*3/uL Normal 3.70-11.00 [facility] Comment on above: Order Comment: Speci men Type: BLOOD SPECIMENOrdering Facility: [facility] Address: [address] [place] [address] Performed By: #### 5 8410-2 ####[facility] LABORATORYCLIA [id number] [address] [place] Magnesium SerPl-mCncon 02-10 Magnesium [Mass/Vol] 2.0 mg/dL Normal 1.7-2.3 [facility] Comment on above: Order Comment: Speci men Type: BLOOD SPECIMENOrdering Facility: [facility] Address: [address] [place] [address] Performed By: #### 2 4321-2, 01391-3, 277-1 ####[facility] LABORATORYCLIA [id number] [place] [address] [place] Phosphate SerPl-mCncon 02-10 Phosphate [Mass/Vol] 2.3 mg/dL Low 2.7-4.8 [facility] Comment on above: Order Comment: Speci men Type: BLOOD SPECIMENOrdering Facility: [facility] Address: [address] [place] [address] Performed By: #### 2 4321-2, 61923-0, 2777-1 ####[facility] LABORATORYCLIA [id number] [address] STATES OF [facility] ALLIED HEALTHon 02-09-2022 ALLIED HEALTH HNO ID: [id number] Author: RT Tracey(Yogesh) Service: ? Author Type: Technologist Type: Allied Health Filed: 02/09/2022 3:32 PM Note Text: Radiology Service Progress Note PATIENT NAME: Miri Cai DATE OF SERVICE: February 09, 2022 TIME: 3:20 PM PATIENT IDENTITY VERIFICATION COMPLETED USING TWO (2) IDENTIFIERS: Name and Date of confirmed by patient verbally and Name and Date of confirmed by identification band. FALL SCREENING: Has the patient had 2 falls in the last year or 1 fall with injury or currently using an Ambulatory Assistive Device (Walker, Cane, Wheelchair, Crutches, etc.)? Inpatient: Screened on floor PATIENT GENDER DATA: Male PATIENT RELEVANT IMPLANT DATA REVIEWED: Yes RADIOLOGY DEPARTMENT: MR; Exam(s) Completed: Head: Routine Brain PERIPHERAL IV DATA: Inpatient: see LDA documentation SIGNED BY: RT Tracey(R) February 09, 2022 3:20 PM Normal [facility] Basic metabolic 2000 panelon 02-09-2022 Anion gap [Moles/Vol] 11 mmol/L Normal 9-18 [facility] Comment on above: Order Comment: Speci men Type: BLOOD SPECIMENOrdering Facility: [facility] Address: [address] [place], [place] [id number] Performed By: #### 2 777-1, 19548-2, ####[facility] LABORATORYCLIA [id number] [address] [place] Calcium [Mass/Vol] 8.6 mg/dL Normal 8.5-10.2 [facility] Comment on above: Order Comment: Speci men Type: BLOOD SPECIMENOrdering Facility: [facility] Address: [address] [place] [address] Performed By: #### 2 777-1, 79978-7, ####[facility] LABORATORYCLIA [id number] [address] [place] Chloride [Moles/Vol] 109 mmol/L High 97-105 [facility] Comment on above: Order Comment: Speci men Type: BLOOD SPECIMENOrdering Facility: [facility] Address: [address] [place] [address] Performed By: #### 2 777-1, 93837-2, ####[facility] LABORATORYCLIA [id number] [address] CO2 [Moles/Vol] 23 mmol/L Normal 22-30 [facility] Comment on above: Order Comment: Speci men Type: BLOOD SPECIMENOrdering Facility: [facility] Address: [address] [place] [address] Performed By: #### 2 777-1, , ####[facility] LABORATORYCLIA [id number] [address] OF [facility] Creatinine [Mass/Vol] 0.73 mg/dL Normal 0.73-1.22 [facility] Comment on above: Order Comment: Speci men Type: BLOOD SPECIMENOrdering Facility: [facility] Address: [address] [place] [address] Performed By: #### 2 777-1, , ####[facility] LABORATORYCLIA [id number] [address] ESTIMATED GLOMERULAR FILTRATION RATE 93 mL/min/1.73m??? Normal >=60 [facility] Comment on above: Order Comment: Speci men Type: BLOOD SPECIMENOrdering Facility: [facility] Address: [address] [place] [address] Result Comment: Ethan mated Glomerular Filtration Rate (eGFR) is calculated using the 2020 CKD-EPI creatinine equation. This equation utilizes serum creatinine, sex, and age as parameters. The creatinine assay has traceable calibration to isotope dilution-mass spectrometry. Refer to KDIGO guidelines for clinical interpretation. In patients with unstable renal function, e.g. those with acute kidney injury, the eGFR may not accurately reflect actual GFR. Performed By: #### 2 777-1, , ####[facility] LABORATORYCLIA [id number] [place] [address] [place] Glucose [Mass/Vol] 125 mg/dL High 74-99 [facility] Comment on above: Order Comment: Speci men Type: BLOOD SPECIMENOrdering Facility: [facility] Address: [address] [place], [place] [address] Result Comment: The [place] Diabetes [employer] (ADA) provides guidance for cutoff values for fasting glucose and random glucose. The ADA defines fasting as no caloric intake for at least 8 hours. Fasting plasma glucose results between 100 to 125 mg/dL indicate increased risk for diabetes (prediabetes). Fasting plasma glucose results greater than or equal to 126 mg/dL meet the criteria for diagnosis of diabetes. In the absence of unequivocal hyperglycemia, results should be confirmed by repeat testing. In a patient with classic symptoms of hyperglycemia or hyperglycemic crisis, random plasma glucose results greater than or equal to 200 mg/dL meet the criteria for diagnosis of diabetes. Reference: Standards of Medical Care in Diabetes 2016, [place] [employer]. Diabetes Care. 2016.39(Suppl 1). Performed By: #### 2 777-1, , ####[facility] LABORATORYCLIA [id number] [place] [address] [place] Potassium [Moles/Vol] 3.9 mmol/L Normal 3.7-5.1 [facility] Comment on above: Order Comment: Speci men Type: BLOOD SPECIMENOrdering Facility: [facility] Address: [address] [place], [place] [id number] Performed By: #### 2 777-1, , ####[facility] LABORATORYCLIA [id number] [place] [id number] [place] Sodium [Moles/Vol] 143 mmol/L Normal 136-144 [facility] Comment on above: Order Comment: Speci men Type: BLOOD SPECIMENOrdering Facility: [facility] Address: [address] [place], [place] [id number] Performed By: #### 2 777-1, , ####[facility] LABORATORYCLIA [id number] [address] STATES [facility] Urea nitrogen [Mass/Vol] 18 mg/dL Normal 9-24 [facility] Comment on above: Order Comment: Speci men Type: BLOOD SPECIMENOrdering Facility: [facility] Address: [address] [place] [address] Performed By: #### 2 777-1, 47892-2, ####[facility] LABORATORYCLIA [id number] [address] CBC panel Auto (Bld)on 02-09 Erythrocyte distribution width (RBC) [Ratio] 14.5 % Normal 11.5-15.0 [facility] Comment on above: Order Comment: Speci men Type: BLOOD SPECIMENOrdering Facility: [facility] Address: [address] [place] [address] Performed By: #### 5 8410-2 ####[facility] LABORATORYCLIA [id number] [address] Hematocrit (Bld) [Volume fraction] 24.5 % Low 39.0-51.0 [facility] Comment on above: Order Comment: Speci men Type: BLOOD SPECIMENOrdering Facility: [facility] Address: [address] [place] [address] Performed By: #### 5 8410-2 ####[facility] LABORATORYCLIA [id number] [address] Hemoglobin (Bld) [Mass/Vol] 8.1 g/dL Low 13.0-17.0 [facility] Comment on above: Order Comment: Speci men Type: BLOOD SPECIMENOrdering Facility: [facility] Address: [address] [place] [address] Performed By: #### 5 8410-2 ####[facility] LABORATORYCLIA [id number] [address] MCH (RBC) [Entitic mass] 30.8 pg Normal 26.0-34.0 [facility] Comment on above: Order Comment: Speci men Type: BLOOD SPECIMENOrdering Facility: [facility] Address: [address] [place] [address] Performed By: #### 5 8410-2 ####[facility] LABORATORYCLIA [id number] [address] MCHC (RBC) [Mass/Vol] 33.1 g/dL Normal 30.5-36.0 [facility] Comment on above: Order Comment: Speci men Type: BLOOD SPECIMENOrdering Facility: [facility] Address: [address] [place] [address] Performed By: #### 5 8410-2 ####[facility] LABORATORYCLIA [id number] [address] OF [facility] MCV (RBC) [Entitic vol] 93.2 fL Normal 80.0-100.0 [facility] Comment on above: Order Comment: Speci men Type: BLOOD SPECIMENOrdering Facility: [facility] Address: [address] [place] [address] Performed By: #### 5 8410-2 ####[facility] LABORATORYCLIA [id number] [address] Nucleated RBC (Bld) [#/Vol] 10*3/uL Normal <0.01 [facility] Comment on above: Order Comment: Speci men Type: BLOOD SPECIMENOrdering Facility: [facility] Address: [address] [place] [address] Performed By: #### 5 8410-2 ####[facility] LABORATORYCLIA [id number] [address] Platelet mean volume (Bld) [Entitic vol] 10.5 fL Normal 9.0-12.7 [facility] Comment on above: Order Comment: Speci men Type: BLOOD SPECIMENOrdering Facility: [facility] Address: [address] [place] [address] Performed By: #### 5 8410-2 ####[facility] LABORATORYCLIA [id number] [address] Platelets (Bld) [#/Vol] 170 10*3/uL Normal 150-400 [facility] Comment on above: Order Comment: Speci men Type: BLOOD SPECIMENOrdering Facility: [facility] Address: [address] [place] [address] Performed By: #### 5 8410-2 ####[facility] LABORATORYCLIA [id number] [address] OF [facility] RBC (Bld) [#/Vol] 2.63 10*6/uL Low 4.20-6.00 [facility] Comment on above: Order Comment: Speci men Type: BLOOD SPECIMENOrdering Facility: [facility] Address: [address] [place] [address] Performed By: #### 5 8410-2 ####[facility] LABORATORYCLIA [id number] [address] WBC (Bld) [#/Vol] 10.17 10*3/uL Normal 3.70-11.00 [facility] Comment on above: Order Comment: Speci men Type: BLOOD SPECIMENOrdering Facility: [facility] Address: [address] [place] [address] Performed By: #### 5 8410-2 ####[facility] LABORATORYCLIA [id number] [address] DIGOXIN/LANOXINon 02-09-2022 Digoxin [Mass/Vol] 0.8 ng/mL Normal 0.5-1.0 [facility] Comment on above: Order Comment: Speci men Type: BLOOD SPECIMENOrdering Facility: [facility] Address: [address] [place] [address] Result Comment: Prov ided therapeutic concentrations are based on the 2008 ESC Guidelines for the Diagnosis and Treatment of Acute and Chronic Heart Failure. Reference ranges and high/low indicator flags are provided as general guidelines only. The treating physician must determine appropriate target levels/dosing based on the specific clinical situation. Performed By: #### D IG ####[facility] LABORATORYCLIA [id number] [place] [address] [place] MRI BRAIN WO IVCONon 022 MRI BRAIN WO IVCON * * *Final Report* * * DATE OF EXAM: Feb 09 2022 4:44PM [place] 0294 - MRI BRAIN WO IVCON / PROCEDURE REASON: Stroke, follow up * * * * Physician Interpretation * * * * EXAMINATION: MRI BRAIN WO IVCON CLINICAL HISTORY: The patient presents with stroke. Follow-up. TECHNIQUE: Routine noncontrast MRI protocol including diffusion images. MQ: MRBWO_2 COMPARISON: Noncontrast head CT 02/07/2022. Outside CTA brain dated 02/06/2022 RESULT: Acute Change: Moderate-sized confluent acute infarct left basal ganglia/denis radiata. Small areas of cortical/subcortical restricted diffusion left middle frontal gyrus, left anterior insula, and left temporoparietal regions. Punctate acute infarct right temporal lobe. Hemorrhage: Throughout the areas of infarct in the left cerebral hemisphere, there are mild amorphous areas of susceptibility, most pronounced within the left basal ganglia and left middle frontal gyrus. Mass Lesion/ Mass Effect: No evidence of an intracranial mass or extra-axial fluid collection. Local mass effect from the left supratentorial infarcts as discussed including sulcal effacement and mild effacement left lateral ventricle. No midline shift. Chronic Change: Scattered patchy and confluent areas of increased T2 and FLAIR signal are present in the supratentorial white matter which is nonspecific but likely represents chronic microvascular ischemia. Parenchyma: There is mild generalized parenchymal volume loss. The brain parenchyma is otherwise within normal limits of signal intensity and morphology. Ventricles: Ventriculomegaly corresponds to the degree of parenchymal volume loss. Skull Base: Hypothalamic and pituitary region are grossly normal. Craniocervical junction is normal. No significant marrow replacement process. Vasculature: Major intracranial arterial structures, and dural venous sinuses show typical flow void, suggesting patency by spin echo criteria. Other: The visualized paranasal sinuses and mastoid air cells are clear. The orbits and extracranial soft tissues are unremarkable. 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 Mild associated areas of amorphous susceptibility within the areas of acute infarct as noted, suggesting confluent areas of petechial type hemorrhage. Follow-up noncontrast head CT recommended. Punctate acute right temporal infarct. Moderate chronic microvascular ischemic change throughout the supratentorial white matter. Mild general atrophy. Operations Recruiter: EMMA Transcribe Date/Time: Feb 09 2022 4:46P Dictated by : JAYDEN LEVINE MD This examination was interpreted and the report reviewed and electronically signed by: JAYDEN LEVINE MD on Feb 09 2022 4:59PM EST [id number] Normal [facility] Magnesium SerPl-mCncon 02-09 Magnesium [Mass/Vol] 2.0 mg/dL Normal 1.7-2.3 [facility] Comment on above: Order Comment: Suzanne rivera Type: BLOOD SPECIMENOrdering Facility: [facility] Address: [address] [place] [address] Performed By: #### 2 777-1, 04656-5, ####[facility] LABORATORYCLIA [id number] [address] OF [facility] Phosphate SerPl-mCncon 02-09 Phosphate [Mass/Vol] 1.9 mg/dL Low 2.7-4.8 [facility] Comment on above: Order Comment: Specharjit rivera Type: BLOOD SPECIMENOrdering Facility: [facility] Address: [address] [place] [address] Performed By: #### 2 777-1, 48371-3, ####[facility] LABORATORYCLIA [id number] [place] [address] [place] THERAPY NTon 02-09-2022 THERAPY NT HNO ID: [id number] Author: Hedy Diallo CCC-OBSTETRICS SCRUB NURSE Service: Speech/Swallow Author Type: Speech Language Pathologist Type: Therapy (PT/OT/Speech/Resp) Filed: 02/09/2022 8:17 AM Note Text: SPEECH THERAPY MISSED VISIT SERVICE DATE: 02/09/2022 SERVICE TIME: 08 to 08 ROOM: [id number] Patient not seen due to Other: See Comment. Aware of Modified Barium Swallow Study order. Will complete as scheduled. SIGNATURE: Hedy Diallo CCC-OBSTETRICS SCRUB NURSE PATIENT NAME: Miri Cai DATE: February 09, 2022 TIME: 8:17 AM [facility] HNO ID: [id number] Author: Mari Jenkins RT(R) Service: Radiology Author Type: Technologist Type: [facility] Filed: 02/08/2022 2:42 PM Note Text: Radiology Service Progress Note PATIENT NAME: Miri Cai DATE OF SERVICE: February 08, 2022 TIME: 2:41 PM PATIENT IDENTITY VERIFICATION COMPLETED USING TWO (2) IDENTIFIERS: Name and Date of confirmed by identification band. FALL SCREENING: Has the patient had 2 falls in the last year or 1 fall with injury or currently using an Ambulatory Assistive Device (Walker, Cane, Wheelchair, Crutches, etc.)? Inpatient: Screened on floor PATIENT GENDER DATA: Male PATIENT RELEVANT IMPLANT DATA REVIEWED: Not Applicable RADIOLOGY DEPARTMENT: General X-ray: Exam(s) Completed: Chest X-Ray PERIPHERAL IV DATA: Not applicable SIGNED BY: Debby Xie RT(R) February 08, 2022 2:41 PM [facility] HNO ID: [id number] Author: Claudia Meeks RT(R) Service: Radiology Author Type: Technologist Type: [facility] Filed: 02/08/2022 9:31 AM Note Text: Radiology Service Progress Note PATIENT NAME: Miri Cai DATE OF SERVICE: February 08, 2022 TIME: 9:30 AM PATIENT IDENTITY VERIFICATION COMPLETED USING TWO (2) IDENTIFIERS: Name and Date of confirmed by patient verbally and Name and Date of confirmed by identification band. FALL SCREENING: Has the patient had 2 falls in the last year or 1 fall with injury or currently using an Ambulatory Assistive Device (Walker, Cane, Wheelchair, Crutches, etc.)? Inpatient: Screened on floor PATIENT GENDER DATA: Male PATIENT RELEVANT IMPLANT DATA REVIEWED: Not Applicable RADIOLOGY DEPARTMENT: General X-ray: Exam(s) Completed: Upper Extremity X-Ray(s): Shoulder, AP / TRUE AP / AXILLARY left PERIPHERAL IV DATA: Not applicable SIGNED BY: RT Lara(R) February 08, 2022 9:30 AM [facility] HNO ID: [id number] Author: RT Lara(R) Service: Radiology Author Type: Technologist Type: [facility] Filed: 02/08/2022 7:28 AM Note Text: Radiology Service Progress Note PATIENT NAME: Miri Cai DATE OF SERVICE: February 08, 2022 TIME: 7:28 AM PATIENT IDENTITY VERIFICATION COMPLETED USING TWO (2) IDENTIFIERS: Name and Date of confirmed by patient verbally and Name and Date of confirmed by identification band. FALL SCREENING: Has the patient had 2 falls in the last year or 1 fall with injury or currently using an Ambulatory Assistive Device (Walker, Cane, Wheelchair, Crutches, etc.)? PATIENT GENDER DATA: Male PATIENT RELEVANT IMPLANT DATA REVIEWED: Not Applicable RADIOLOGY DEPARTMENT: General X-ray: Exam(s) Completed: Chest X-Ray PERIPHERAL IV DATA: Not applicable SIGNED BY: RT Lara(R) February 08, 2022 7:28 AM [facility] HNO ID: [id number] Author: RT Chelly(Yogesh) Service: ? Author Type: Technologist Type: [facility] Filed: 02/07/2022 10:47 PM Note Text: Radiology Service Progress Note PATIENT NAME: Miri Cai DATE OF SERVICE: February 07, 2022 TIME: 10:47 PM PATIENT IDENTITY VERIFICATION COMPLETED USING TWO (2) IDENTIFIERS: Name and Date of confirmed by identification band. FALL SCREENING: Has the patient had 2 falls in the last year or 1 fall with injury or currently using an Ambulatory Assistive Device (Walker, Cane, Wheelchair, Crutches, etc.)? Inpatient: Screened on floor PATIENT GENDER DATA: Male PATIENT RELEVANT IMPLANT DATA REVIEWED: Not Applicable RADIOLOGY DEPARTMENT: CT; Exam(s) Completed: Brain PERIPHERAL IV DATA: Not applicable SIGNED BY: RT Chelly(R) February 07, 2022 10:47 PM [facility] ASPIRIN/CLOPIDOGREL FRANK Sharma 02-08-2022 Platelet aggregation ADP induced High dose (PRP) [Rel units/Vol] 7 % Max Low 65-93 [facility] Comment on above: Order Comment: Speci men Type: BLOOD SPECIMENOrdering Facility: [facility] Address: [address] [place], [place] [address] Performed By: #### A SPCLP ####[facility] LABCLIA [id number] [place] [address] [place] Platelet aggregation arachidonate induced 500 ug/mL (PRP) [Rel units/Vol] 12 % Max Low 75-100 [facility] Comment on above: Order Comment: Speci men Type: BLOOD SPECIMENOrdering Facility: [facility] Address: [address] [place], [place] [address] Performed By: #### A SPCLP ####[facility] LABCLIA [id number] [place] [address] [place] Basic metabolic 2000 panelon 02-08-2022 Anion gap [Moles/Vol] 12 mmol/L Normal 9-18 [facility] Comment on above: Order Comment: Speci men Type: BLOOD SPECIMENOrdering Facility: [facility] Address: [address] [place], [place] [address] Performed By: #### 2 4321-2, 2777, ####[facility] LABORATORYCLIA [id number] [place] [address] [place] Calcium [Mass/Vol] 8.2 mg/dL Low 8.5-10.2 [facility] Comment on above: Order Comment: Speci men Type: BLOOD SPECIMENOrdering Facility: [facility] Address: [address] [place] [address] Performed By: #### 2 4321-2, 2777, ####[facility] LABORATORYCLIA [id number] [place] [address] [place] Chloride [Moles/Vol] 108 mmol/L High 97-105 [facility] Comment on above: Order Comment: Speci men Type: BLOOD SPECIMENOrdering Facility: [facility] Address: [address] [place], [place] [id number] Performed By: #### 2 4321-2, 27711-09, ####[facility] [id number] [address] CO2 [Moles/Vol] 22 mmol/L Normal 22-30 [facility] Comment on above: Order Comment: Speci men Type: BLOOD SPECIMENOrdering Facility: [facility] Address: [address] [place] [address] Performed By: #### 2 4321-2, 2776-05, ####[facility] [id number] [address] Creatinine [Mass/Vol] 0.93 mg/dL Normal 0.73-1.22 [facility] Comment on above: Order Comment: Speci men Type: BLOOD SPECIMENOrdering Facility: [facility] Address: [address] [place] [address] Performed By: #### 2 4321-2, 2776-05, ####[facility]ITALIA [id number] [address] ESTIMATED GLOMERULAR FILTRATION RATE 84 mL/min/1.73m??? Normal >=60 [facility] Comment on above: Order Comment: Speci men Type: BLOOD SPECIMENOrdering Facility: [facility] Address: [address] [place] [address] Result Comment: Ethna mated Glomerular Filtration Rate (eGFR) is calculated using the 2020 CKD-EPI creatinine equation. This equation utilizes serum creatinine, sex, and age as parameters. The creatinine assay has traceable calibration to isotope dilution-mass spectrometry. Refer to KDIGO guidelines for clinical interpretation. In patients with unstable renal function, e.g. those with acute kidney injury, the eGFR may not accurately reflect actual GFR. Performed By: #### 2 4321-2, 2777-1, ####[facility] LABORATORYCLIA [id number] [place] [address] [place] Glucose [Mass/Vol] 137 mg/dL High 74-99 [facility] Comment on above: Order Comment: Suzanne miguel Type: BLOOD SPECIMENOrdering Facility: [facility] Address: [address] [place], [place] [id number] Result Comment: The [place] Diabetes Association (ADA) provides guidance for cutoff values for fasting glucose and random glucose. The ADA defines fasting as no caloric intake for at least 8 hours. Fasting plasma glucose results between 100 to 125 mg/dL indicate increased risk for diabetes (prediabetes). Fasting plasma glucose results greater than or equal to 126 mg/dL meet the criteria for diagnosis of diabetes. In the absence of unequivocal hyperglycemia, results should be confirmed by repeat testing. In a patient with classic symptoms of hyperglycemia or hyperglycemic crisis, random plasma glucose results greater than or equal to 200 mg/dL meet the criteria for diagnosis of diabetes. Reference: Standards of Medical Care in Diabetes 2016, [place] [employer] Association. Diabetes Care. 2016.39(Suppl 1). Performed By: #### 2 4321-2, 2776-05, ####[facility] LABORATORYCLIA [id number] [place] [address] [place] Potassium [Moles/Vol] 4.1 mmol/L Normal 3.7-5.1 [facility] Comment on above: Order Comment: Suzanne rivera Type: BLOOD SPECIMENOrdering Facility: [facility] Address: [address] [place], [place] [id number] Performed By: #### 2 4321-2, 2776-05, ####[facility] LABORATORYCLIA [id number] [place] [address] [place] Sodium [Moles/Vol] 142 mmol/L Normal 136-144 [facility] Comment on above: Order Comment: Suzanne rivera Type: BLOOD SPECIMENOrdering Facility: [facility] Address: [address] [place], [place] [phone] Performed By: #### 2 4321-2, 2777, ####[facility] LABORATORYCLIA [id number] [place] [address] [place] Urea nitrogen [Mass/Vol] 24 mg/dL Normal 9-24 [facility] Comment on above: Order Comment: Speci men Type: BLOOD SPECIMENOrdering Facility: [facility] Address: [address] [place] [address] Performed By: #### 2 4321-2, 2777-1, 68641-0 ####[facility]ORATORYCLIA [id number] [address] [facility] CBC panel Auto (Bld)on 02-08 Erythrocyte distribution width (RBC) [Ratio] 14.5 % Normal 11.5-15.0 [facility] Comment on above: Order Comment: Speci men Type: BLOOD SPECIMENOrdering Facility: [facility] Address: [address] [place] [address] Performed By: #### 5 8410-2 ####[facility] LABORATORYCLIA [id number] [address] Hematocrit (Bld) [Volume fraction] 25.8 % Low 39.0-51.0 [facility] Comment on above: Order Comment: Speci men Type: BLOOD SPECIMENOrdering Facility: [facility] Address: [address] [place] [address] Performed By: #### 5 8410-2 ####[facility] LABORATORYCLIA [id number] [address] [facility] Hemoglobin (Bld) [Mass/Vol] 8.5 g/dL Low 13.0-17.0 [facility] Comment on above: Order Comment: Speci men Type: BLOOD SPECIMENOrdering Facility: [facility] Address: [address] [place] [address] Performed By: #### 5 8410-2 ####[facility] LABORATORYCLIA [id number] [address] MCH (RBC) [Entitic mass] 30.7 pg Normal 26.0-34.0 [facility] Comment on above: Order Comment: Speci men Type: BLOOD SPECIMENOrdering Facility: [facility] Address: [address] [place] [address] Performed By: #### 5 8410-2 ####[facility] LABORATORYCLIA [id number] [address] MCHC (RBC) [Mass/Vol] 32.9 g/dL Normal 30.5-36.0 [facility] Comment on above: Order Comment: Speci men Type: BLOOD SPECIMENOrdering Facility: [facility] Address: [address] [place] [address] Performed By: #### 5 8410-2 ####[facility] LABORATORYCLIA [id number] [address] MCV (RBC) [Entitic vol] 93.1 fL Normal 80.0-100.0 [facility] Comment on above: Order Comment: Speci men Type: BLOOD SPECIMENOrdering Facility: [facility] Address: [address] [place] [address] Performed By: #### 5 8410-2 ####[facility] [id number] [address] Nucleated RBC (Bld) [#/Vol] 10*3/uL Normal <0.01 [facility] Comment on above: Order Comment: Speci men Type: BLOOD SPECIMENOrdering Facility: [facility] Address: [address] [place] [address] Performed By: #### 5 8410-2 ####[facility] LABORATORYCLIA [id number] [address] Platelet mean volume (Bld) [Entitic vol] 10.6 fL Normal 9.0-12.7 [facility] Comment on above: Order Comment: Speci men Type: BLOOD SPECIMENOrdering Facility: [facility] Address: [address] [place] [address] Performed By: #### 5 8410-2 ####[facility] LABORATORYCLIA [id number] [address] Platelets (Bld) [#/Vol] 145 10*3/uL Low 150-400 [facility] Comment on above: Order Comment: Speci men Type: BLOOD SPECIMENOrdering Facility: [facility] Address: [address] [place] [address] Performed By: #### 5 8410-2 ####[facility]ORATORYCLIA [id number] [address] OF [place] RBC (Bld) [#/Vol] 2.77 10*6/uL Low 4.20-6.00 [facility] Comment on above: Order Comment: Speci men Type: BLOOD SPECIMENOrdering Facility: [facility] Address: [address] [place] [address] Performed By: #### 5 8410-2 ####[facility] LABORATORYCLIA [id number] [address] WBC (Bld) [#/Vol] 7.57 10*3/uL Normal 3.70-11.00 [facility] Comment on above: Order Comment: Speci men Type: BLOOD SPECIMENOrdering Facility: [facility] Address: [address] [place] [address] Performed By: #### 5 8410-2 ####[facility] LABORATORYCLIA [id number] [address] [place] [address] ABD/PEL WO IVCONon 2021 CT ABD/PEL WO IVCON * * *Final Report* * * DATE OF EXAM: Feb 08 2022 3:09PM [facility] 0531 - CT ABD/PEL WO IVCON / PROCEDURE REASON: Retroperitoneal hematoma suspected * * * * Physician Interpretation * * * * EXAMINATION: CT ABDOMEN AND PELVIS WITHOUT IV CONTRAST CLINICAL HISTORY: Abdominal pain with clinical concern for retroperitoneal hematoma TECHNIQUE: Non-IV contrast imaging of the abdomen and pelvis was performed using standard technique, scanning from just above the dome of the diaphragm to the symphysis pubis. Unenhanced imaging is limited for the evaluation of some intra-abdominal and pelvic pathology. MQ: CTAPWO_3 Contrast: IV: None : ml of CT Radiation dose: Integrated Dose-length product (DLP) for this visit = 698 mGy*cm. CT Dose Reduction Employed: Automated exposure control(AEC) and iterative recon COMPARISON: None. Limitations: Involuntary patient respiratory motion artifact. In the absence of intravenous contrast, there is decreased sensitivity for detecting infectious, neoplastic, visceral, and vascular abnormalities. RESULT: Abdomen / Pelvis: Liver: A 1 cm hypodense lesion in the left hepatic lobe is probably a cyst. Biliary: There is some high attenuation material within the gallbladder likely representing biliary excretion of intravenously administered contrast. The gallbladder is mildly distended but there is no apparent biliary dilatation. Spleen: No splenomegaly. Pancreas: Unremarkable. Adrenals: No mass. Kidneys: No calculus, hydronephrosis or finding to suggest a cyst or mass in the unenhanced kidney. GI Tract: No bowel dilation. Lymph Nodes: No lymphadenopathy. Mesentery/peritoneum: No ascites. Retroperitoneum: No mass. Vasculature: No evidence for abdominal aortic aneurysm. Pelvis: High attenuation material is noted in the bladder is likely excreted contrast. No pelvic mass lesions are seen otherwise. Bones/Soft Tissues: No acute abnormality. Apparent prior left inguinal hernia repair. Lower thorax: Unremarkable. Water Ski Assembler (topogram) images: No additional findings. IMPRESSION: Within the limits of a noncontrast examination, there is no acute process. Specifically, there is no evidence for retroperitoneal hematoma as questioned. Operations Recruiter: [facility]MA Transcribe Date/Time: Feb 08 2022 3:15P Dictated by : RADHA INTERIANO MD This examination was interpreted and the report reviewed and electronically signed by: RADHA INTERIANO MD on Feb 08 2022 3:19PM EST [id number] Normal [facility] CT BRAIN WO IVCONon 02-09-[address] BRAIN WO IVCON * * *Final Report* * * DATE OF EXAM: Feb 07 2022 10:48PM [facility] 0504 - CT BRAIN WO IVCON / PROCEDURE REASON: Stroke, follow up * * * * Physician Interpretation * * * * EXAMINATION: CT BRAIN WO IVCON CLINICAL HISTORY: Stroke follow-up. TECHNIQUE: Serial axial images without IV contrast were obtained from the vertex to the foramen magnum. MQ: CTBWO_3 CT Radiation dose: Integrated Dose-Length Product (DLP) for this visit = 806 mGy*cm CT Dose Reduction Employed: Iterative recon COMPARISON: Same day. RESULT: Water Ski Assembler (topogram) images: No additional findings. Post-operative change: None. Acute change: No evidence of an acute infarct or other acute parenchymal process. Hemorrhage: No evidence of acute intracranial hemorrhage. ECASS hemorrhagic transformation score: Not Applicable Mass Lesion / Mass Effect: There is no evidence of an intracranial mass or extraaxial fluid collection. No significant mass effect. Chronic change: Patchy foci of low attenuation coefficient are present within the supratentorial white matter which is a nonspecific finding but likely represents moderate microvascular ischemia. Parenchyma: There is no significant volume loss. The brain parenchyma is otherwise within normal limits for age. Ventricles: The ventricles are within normal limits of size and configuration for age. Paranasal sinuses and skull base: The visualized paranasal sinuses are grossly clear. The skull base and imaged soft tissues are unremarkable. IMPRESSION: No acute intracranial abnormality. Interval improvement in contrast staining in the left globus pallidus. Operations Recruiter: EMMA Transcribe Date/Time: Feb 07 2022 11:16P Dictated by : CRICKET RODRIGUEZ MD This examination was interpreted and the report reviewed and electronically signed by: CRICKET RODRIGUEZ MD on Feb 07 2022 11:22PM EST [id number] Normal [facility] Hgb Bld-ncon 02-08-2022 Hemoglobin (Bld) [Mass/Vol] 8.0 g/dL Low 13.0-17.0 [facility] Comment on above: Order Comment: Suzanne rivera Type: BLOOD SPECIMENOrdering Facility: [facility] Address: [address] [place] [address] Performed By: #### 7 18-7 ####[facility] LABORATORYCLIA [id number] [place] [address] [place] Magnesium SerPl-ncon 02-08 Magnesium [Mass/Vol] 2.1 mg/dL Normal 1.7-2.3 [facility] Comment on above: Order Comment: Suzanne rivera Type: BLOOD SPECIMENOrdering Facility: [facility] Address: [address] [place] [address] Performed By: #### 2 4321-2, 2777-1, 13504-1 ####[facility]ORATORYCLIA [id number] [address] NUTRITIONon 02-08-2022 NUTRITION HNO ID: [id number] Author: Joceline Parker RD Service: Nutrition Therapy Author Type: Registered Dietitian Type: Nutrition Filed: 02/08/2022 3:32 PM Note Text: NUTRITION THERAPY INITIAL ASSESSMENT SERVICE DATE: 02/08/2022 SERVICE TIME: 3:13 PM Screening referral for elderly pt in NSICU Nutrition Assessment: Recommended Malnutrition Diagnosis: No Malnutrition Identified Nutrition Diagnosis: Problem: Suboptimal oral intake Related to: Acute illness As evidenced by: Intake records;Medical condition;Imaging studies Estimated kilocalorie needs: 1675 - 2100 Calorie Calculation Method: 20-25 kcals/kg @ 83.8 kg Estimated protein needs (grams): 84 - 126 Grams protein determined by: 1.0 - 1.5 g/kg Care Plan: Continue current diet L4 L2 Supplements: Mighty Shake No Sugar Added which are nectar thick liquid Pt is very lethargic. RN states he is not awake enough to eat much. Monitor and Evaluation: Meet greater than 75% of estimated needs;Monitor bowel function;Monitor fluid/electrolyte balance;Monitor labs, I/Os, vital signs, weight Discharge Recommendations: (TBD) HPI: Miri Cai is s/p PTCA. He had a stroke after having elective shoulder replacement surgery. He has aphasia and has a facial droop. Hx of Atrial flutter, HTN, PA, T2DM. PAST MEDICAL HISTORY Diagnosis Date Arrhythmia Diabetes mellitus (HCC) Essential hypertension PAST SURGICAL HISTORY Procedure Laterality Date NON-MELANOMA SKIN CANCER TUMOR BOARD [facility] 10/2021 REMV CATARACT EXTRACAP,INSERT LENS Bilateral 06/2021 REPAIR INCISIONAL HERNIA,REDUCIBLE 2008 Intake History: Nutrition Intake Prior to Admission: Unable to determine Current Nutrition Intake: 0-25% estimated energy needs Current Intake Over time: (> 1 day) Diet Orders (From admission, onward) Start Ordered 02/08/22 1245 DIET SUPPLEMENTS START NOW Question Answer Comment Supplement 1 MIGHTY SHAKE REDUCED SUGAR CHOCOLATE Supplement 1 Frequency BREAKFAST Supplement 2 MIGHTY SHAKE REDUCED SUGAR STRAWBERRY BANANA Supplement 2 Frequency LUNCH Supplement 2 Frequency DINNER 02/08/22 1237 02/07/22 1230 DIET FOOD CONSISTENCY CONTROLLED START NOW Question Answer Comment Food Consistency PUREED (L4) Liquid Consistency MILDLY THICK (L2)/NECTAR Feeding instructions for nursing crush meds in pureed 02/07/22 1228 Anthropometrics: Height: 179.1 cm (5' 10.5) (height estimate) Weight: 83.8 kg (184 lb 11.9 oz) Dosing Weight: 83.8 kg (184 lb 11.9 oz) Usual Weight: 83.9 kg (184 lb 15.5 oz) 12/17/21 Usual Weight Obtained From: Chart Review Body mass index is 26.13 kg/m?. Normal (for his age) Weight change percentage over time: stable wt since 12/17/21 Physical Exam: Subcutaneous fat loss: No fat loss Muscle loss: Mild - related more to age than malnutrition Potential micronutrient deficiency: No deficiency identified Edema/Ascites: No edema GI Symptoms: swallowing problems Functional Status: Not related to malnutrition status Potential Signs of Inflammation: Chronic condition;Hyperglycem ia;Imaging studies HTN, skin CA, cataract removals, T2 DM, arrhythmia MNT Billing: $ Initial Assessment: 1-15 minutes SIGNATURE: Joceline Parker RD PATIENT NAME: Miri Cai DATE: February 08, 2022 TIME: 3:13 PM 1074 Normal [facility] Phosphate SerPl-mCncon 02-08 Phosphate [Mass/Vol] 2.7 mg/dL Normal 2.7-4.8 [facility] Comment on above: Order Comment: Speci men Type: BLOOD SPECIMENOrdering Facility: [facility] Address: [address] [place] [address] Performed By: #### 2 4321-2, 2777-1, 33179-6 ####[facility] LABORATORYCLIA [id number] [place] [address] [facility] THERAPY NTon 02-08-2022 THERAPY NT HNO ID: [id number] Author: Álvaro Ritter PT Service: Physical Therapy Author Type: Physical Therapist Type: Therapy (PT/OT/Speech/Resp) Filed: 02/08/2022 10:44 AM Note Text: Physical Therapy Evaluation SERVICE DATE: 02/08/2022 SERVICE TIME: 930 to 955 ROOM: [place] [address] Recommended Discharge Disposition: Acute Rehab Recommended Discharge Disposition Comments: Patient s/p (L) TSA complicated by acute (L) MCA infarct post-op with right sided deficits and aphasia limiting his current function when he was previously living independently. Intensive therapies are most appropriate to maximize his functional outcomes. Recommended Discharge Disposition Due to: Patient requires an active, intensive rehabilitation therapy program due to:;ADL impairment resulting in caregiver dependence;coordinati on deficits;decline in functional status requiring daily skilled care;deficits affecting dominant side;deficits affecting non-dominant side;high level balance deficits;new / worsened cognitive deficits related to current diagnosis;ongoing intervention of multiple therapy disciplines;poor trunk control PT 6 Clicks Score: 8 Precautions/Activity Restrictions: Weight Bearing Restrictions;Fall Risk Precaution/Activity Restriction Comments: (R) sided weakness, (L) UE NWB in sling Extremity With Weight Bearing Restricted: Left Upper Extremity Left Upper Extremity Weight Bearing Status: NWB (sling) Current Hospital Course: (L) TSA on 02/06/22 at OSH with recovery complicated by right sided weakness, aphasia, facial droop - (L) MCA stroke - prompting administration of TNK on 02/06 at 2230 and transfer to [facility] for NIL for (L) ICA/MCA stenting on 02/07/22 with restenosis and return to NIL later on 02/07/22. Reason for Hospital Admission: stroke after (L) TSA on 02/06/22. transfer from OSH Relevant Past Medical History: HTN, DM type 2, pAF on Eliquis (held for surgery) Response to Therapy Interventions: Good participation in activities, Cognitive deficits, Multiple ongoing medical issues Continue skilled needs due to: Functional mobility/skill impairments, Safety concerns Physical Therapy Problem List: Education Deficit;Safety Deficits;Impaired Self Care;Pain;Decreased Activity Tolerance;Decreased Range Of Motion;Decreased Strength;Functional Mobility Impairment;Balance Impaired Treatment Interventions: Education;Self Care / Home Management;Energy Conservation Training;Joint Mobility;Strengthenin g;Functional Mobility Training;Balance Training;Neuromuscula r Re-education Plan for next visit: Bed mobility, Exercise instruction/handout, Sitting balance, Sit to Stand Transfers Home Environment Patient Lives With: Self/Alone Assistance Available: (unknown) Entry To Home: Stairs Number Of Stairs Into Home: 4 Number Of Stairs To Bed/Bath: 0 Prior Functional Level: Within Functional Limits Prior Functional Level Comments: Per care management note, patient lives alone in a single level mobile home, independent prior to admission Patient Report: Aphasic, intermittent one word answers of okay. Repeating numbers when asked his birthday. Able to state his name. CURRENT FUNCTIONAL STATUS: Most recent performance Current Functional Mobility Assist Level Additional Information Rolling Supine to Sit Maximal Assistance;Additional Information (x2) Max assist with right lower extremity, tactile and verbal cues for left lower extremity with patient able to initiate movement. Max assist at trunk, no use of either upper extremity. Sit to Supine Additional Information;Total Assistance (x2) Use of draw sheet with assist at trunk and both lower extremities Scooting Sit to Stand (Not deemed safe at this time) Stand to Sit Bed to Chair Toilet/Commode Gait Stairs Curb Step Car Transfer Blank mejia indicate activity not attempted Range of Motion: WFL Except (resisted/tone upon (R) ankle dorsiflexion) Strength: Right UE Measurement;Right LE Measurement;Strength Limitation Comments Strength Limitation Comments: (L) LE grossly WFL. Fair (L) mine wirer, elbow/shoulder not assessed due to recent (L) TSA Right Shoulder Elevation Strength: 0 Right Elbow Flexion Strength: 2 Right Elbow Extension Strength: 2 Right Wrist Strength: 1 Right Squeegeer And Former Strength: 1 Right Hip Flexion Strength: 1 Right Knee Extension Strength: 2 Right Ankle Dorsiflexion Strength: 1 (at best) Tone Abnormalities: Hypertonic Site Hypertonic: R Lower Extremity (intermittent, unclear if true tone vs resistance) Balance: Static Sitting Static Sitting Balance: Poor Patient requires handhold support and moderate to maximal assistance to maintain position Activity Tolerance: Sitting Activity Sitting Activity: edge of bed balance Sitting Activity Tolerance (in minutes): 4 JH-HLM: 3: Sit at edge of bed Learning/Educational Needs: Discharge Plan;Disease Process;Equipment;Fun ctional Activities/Mobility;P ain Managemen (more content not included)... Normal [facility] US CAROTID LTon 02-08-2022 CAROTID LT * * *Final Report* * * DATE OF EXAM: Feb 08 2022 3:19PM A2U 1098 - US CAROTID LT / PROCEDURE REASON: Stroke, LT ICA stent occluded. * * * * Physician Interpretation * * * * Non-Invasive Vascular Laboratory [facility] Carotid Duplex Unilateral - Left Date of service/time: 02/08/2022 2:34:00 PM [facility] Name: MIRI CAI Date of : 1945 Age: 76 years Gender: M Medical History Tobacco: Former Hypertension: Yes Diabetes: Yes Clinical Indication Cerebrovascular accident and status post carotid stent. TECHNIQUE -------- A carotid duplex ultrasound examination was performed, including grayscale imaging and color Doppler and spectral Doppler examination of the below mentioned arteries. FINDINGS -------- RIGHT SIDE Common carotid artery: laminated . LEFT SIDE Common carotid artery: Proximal: PSV: 185 cm/s. EDV: 37 cm/s. Mid: PSV: 194 cm/s. EDV: 49 cm/s. Distal: PSV: 152 cm/s. EDV: 20 cm/s. Mild homogeneous laminated plaque throughout. Internal carotid artery: Origin: PSV: 93 cm/s. EDV: 30 cm/s. Proximal: PSV: 122 cm/s. EDV: 45 cm/s. Mid: PSV: 87 cm/s. EDV: 33 cm/s. Distal: PSV: 180 cm/s. EDV: 76 cm/s. ICA/CCA Ratio: 1.2 External carotid artery: Proximal: PSV: 171 cm/s. EDV: 13 cm/s. Mild homogeneous laminated plaque from origin to mid. Vertebral artery: Mid: PSV: 61 cm/s. EDV: 24 cm/s. IMPRESSION Compared to prior study of 02/08/2022, LT ICA was occluded, now is patent. LEFT SIDE Common carotid artery: Plaque visualized without evidence of hemodynamically significant stenosis. Internal carotid artery stent: Patent, no hemodynamically significant restenosis. External carotid artery: Patent. Vertebral artery: Patent and antegrade flow noted. Technologist: Shy Renteria [facility] Ordering physician: ROBY ALEXANDER Interpreting physician: Anirudh Bryant MD Final RP Operations Recruiter: JAY Transcribe Date/Time: Feb 08 2022 2:34P Dictated by : ANIRUDH BRYANT MD This examination was interpreted and the report reviewed and electronically signed by: ANIRUDH BRYANT MD on Feb 08 2022 3:46PM EST [id number] Normal [facility] XR CHEST 1V FRONTALon 2021 XR CHEST 1V FRONTAL * * *Final Report* * * DATE OF EXAM: Feb 08 2022 2:40PM [id number] [id number] - XR CHEST 1V FRONTAL / PROCEDURE REASON: Evaluate tube, line or lead position * * * * Physician Interpretation * * * * EXAMINATION: CHEST RADIOGRAPH (SINGLE VIEW AP OR PA) CLINICAL HISTORY: Evaluate tube, line or lead position MQ: XC1_5 Comparison: None RESULT: Lines, tubes, and devices: There is a right internal jugular central venous catheter whose tip is at the superior vena cava. Lungs and pleura: No consolidation. No lung mass. No pleural effusion. There is no visible pneumothorax. Cardiomediastinal silhouette: Normal cardiomediastinal silhouette. Other: Left shoulder prosthesis noted. IMPRESSION: Central venous catheter has been placed without apparent complications. There is no acute process otherwise. Operations Recruiter: EMMA Transcribe Date/Time: Feb 08 2022 2:46P Dictated by : RADHA INTERIANO MD This examination was interpreted and the report reviewed and electronically signed by: RADHA INTERIANO MD on Feb 08 2022 2:47PM EST [id number] Normal [facility] XR SHLDR >/=3V AP/GEMA AP/OTH R LTon 02-08-2022 XR SHLDR >/=3V AP/GEMA AP/OTHR LT * * *Final Report* * * DATE OF EXAM: Feb 08 2022 9:31AM AKX [id number] - XR SHLDR >/=3V AP/GEMA AP/OTHR LT / PROCEDURE REASON: Post-operative / post-procedure assessment, asymptomatic * * * * Physician Interpretation * * * * EXAM TITLE: XR SHLDR >/=3V AP/GEMA AP/OTHR LT DATE: 02/08/2022 9:36 AM INDICATION: Postoperative assessment COMPARISON: None. FINDINGS: There is a reversed total left shoulder arthroplasty. No fractures or dislocations are identified. Soft tissues are unremarkable. IMPRESSION: Satisfactory postoperative appearance. Operations Recruiter: EMMA Transcribe Date/Time: Feb 08 2022 9:36A Dictated by : RADHA INTERIANO MD This examination was interpreted and the report reviewed and electronically signed by: RADHA INTERIANO MD on Feb 08 2022 9:37AM EST [id number] Normal [facility] ALLIED HEALTHon 02-07-2022 ALLIED HEALTH HNO ID: [id number] Author: RT Ligia(R) Service: Radiology Author Type: Technologist Type: Allied Health Filed: 02/07/2022 4:45 PM Note Text: Radiology Service Progress Note PATIENT NAME: Miri Cai DATE OF SERVICE: February 07, 2022 TIME: 4:45 PM PATIENT IDENTITY VERIFICATION COMPLETED USING TWO (2) IDENTIFIERS: Name and Date of confirmed by patient verbally and Name and Date of confirmed by identification band. FALL SCREENING: Has the patient had 2 falls in the last year or 1 fall with injury or currently using an Ambulatory Assistive Device (Walker, Cane, Wheelchair, Crutches, etc.)? Inpatient: Screened on floor PATIENT GENDER DATA: Male PATIENT RELEVANT IMPLANT DATA REVIEWED: Not Applicable RADIOLOGY DEPARTMENT: CT; Exam(s) Completed: Brain PERIPHERAL IV DATA: Not applicable SIGNED BY: RT Ligia(R) February 07, 2022 4:45 PM [facility] ANES POSTPROC EVALon 022 ANES POSTPROC EVAL HNO ID: [id number] Author: Tip Aparicio MD Service: Anesthesiology Author Type: Physician Type: Anesthesia Postprocedure Evaluation Filed: 02/07/2022 7:42 AM Note Text: POST ANESTHESIA EVALUATION NOTE : 1945 Procedure Summary Date: 02/07/22 Room / Location: [facility] [place] Anesthesia Start: 134 Anesthesia Stop: 308 Procedure: PERC ARTERIAL TRANSLUMINAL MECHANICAL THROMBECTOMY AND/OR INFUSION FOR THROMBOLYSIS, INTRACRANIAL, ANY METHOD INCL DIAG ANGIOGRAPHY, FLOURO GUIDANCE,CATH PLACEMENT/ INTRAPROC PHARM THROMBOLYTIC INJ Diagnosis: Acute stroke due to ischemia (HCC) (Acute stroke due to ischemia (HCC) [I63.9]) Surgeons: Roby Alexander MD Responsible Provider: Tip Aparicio MD Anesthesia Type: general ASA Status: 4 - Emergent Anesthesia Type: No value filed. Last Vitals Vitals Value Taken Time BP 109/62 02/07/22 0730 Temp 36.2 ?C (97.16 ?F) 02/07/22 0741 Pulse 91 02/07/22 0741 Resp 20 02/07/22 0741 SpO2 99 % 02/07/22 0741 Vitals shown include unvalidated device data. Post Anesthesia Patient Status Patient Evaluation: PACU. PACU/ICU Patient Condition: stable. Anticipated Disposition: inpatient floor planned admission. Neurological Status: sleepy but arousable. Pulmonary Status: breathing comfortably on supplemental oxygen Airway Control: returned to baseline unsupported. Cardiovascular Status: stable. Pain Management: clinically adequate Postoperative Hydration: acceptable. Intraoperative Events: cardiac dysrhythmia- typical atrial flutter (present preoperatively) Post Operative Nausea/Vomiting Status: no significant post operative nausea or vomiting Anesthetic Observations: Recommendation: continue current plan of care and further care per PACU/ICU/floor team. Anesthesia Observations No Documentation SIGNATURE: Tip Aparicio MD PATIENT NAME: Miri Cai DATE: February 07, 2022 TIME: 7:42 AM CSN: [id number] [facility] ANES PRE-OPon 02-07-2022 ANES PRE-OP HNO ID: [id number] Author: Tip Aparicio MD Service: Anesthesiology Author Type: Physician Type: Anesthesia Preprocedure Evaluation Filed: 02/07/2022 7:42 AM Note Text: ANESTHESIOLOGY DAY OF SURGERY NOTE : 1945 Procedure Information Anesthesia Start Date/Time: 02/07/22134 Procedure: PERC ARTERIAL TRANSLUMINAL MECHANICAL THROMBECTOMY AND/OR INFUSION FOR THROMBOLYSIS, INTRACRANIAL, ANY METHOD INCL DIAG ANGIOGRAPHY, FLOURO GUIDANCE,CATH PLACEMENT/ INTRAPROC PHARM THROMBOLYTIC INJ Location: [place] [facility] / [place] [facility] [place] Surgeons: Roby Alexander MD Estimated body mass index is 26.13 kg/m? as calculated from the following: Height as of this encounter: 179.1 cm (5' 10.5). Weight as of this encounter: 83.8 kg (184 lb 11.9 oz). Most recent hematocrit and potassium results: Hematocrit 33.9 02/07/2022 Potassium 4.7 02/07/2022 Relevant Problems CARDIO (+) Atrial flutter with rapid ventricular response (HCC) (+) HTN (hypertension) (+) ICAO (internal carotid artery occlusion), left (+) Myocardial infarction (HCC) (+) Occlusion of middle cerebral artery, left ENDO (+) Type 2 diabetes mellitus without complication, without long-term current use of insulin (HCC) NEURO-PSYCH (+) Acute ischemic left MCA stroke (HCC) (+) Hx of atrial flutter I - PHYSICAL EVALUATION AIRWAY Patient intubated: No. Tracheostomy tube not present Mallampati: II. TM distance: >3 FB. Neck ROM: full ROM without neurological symptoms. Mouth opening: adequate. Short neck: no. Thick neck: no DENTAL Dental findings: teeth intact and poor dentition. Additional exam findings: no II - ANESTHESIA PLAN ASA Score: 4; emergent. Anesthetic Plan: general Airway type: ETT NPO Status: adequate Monitoring plan: standard ASA. Postoperative analgesic plan: go to ICU. Patient / Surrogate agrees to blood products: blood products not planned Significant changes in the patient condition since the History and Physical, not otherwise documented in primary service progress note: no. Potential Anesthesia issues that may suggest increased risk of complications or contraindication to planned procedure: none. Vitals Value Taken Time BP 122/77 02/07/220 Pulse 114 02/07/22129 Resp 22 02/07/22129 Temp SpO2 96 % 02/07/22129 Vitals shown include unvalidated device data. Facility-Administered Medications as of 02/07/2022 Medication Dose Route Frequency - NaCl 0.9% iv flush bag 20 mL INTRAVENOUS PRN - sodium chloride 0.9 % (flush) 3-5 mL (BD POSIFLUSH) 3-5 mL INTRAVENOUS q 12 H - atorvastatin 80 mg tab(s) (LIPITOR) 80 mg ORAL/FEEDING TUBE AT BEDTIME - acetaminophen 650 mg tab(s) (TYLENOL) 650 mg ORAL/FEEDING TUBE q 4 H PRN - pantoprazole 40 mg oral liquid (PROTONIX) 40 mg ORAL/FEEDING TUBE DAILY (6 AM) - sodium chloride 0.9 % (flush) 2-10 mL (BD POSIFLUSH) 2-10 mL INTRAVENOUS DIRECTED PRN And - perflutren lipid microspheres 1.1 mg/mL 1.3 mL injection (DEFINITY) 1.3 mL INTRAVENOUS DIRECTED PRN Outpatient Medications as of 02/07/2022 Medication Sig - ELIQUIS 5 mg tab(s) Take 5 mg by mouth twice daily. - Ascorbic Acid 1,000 mg TbER Take by mouth. - cholecalciferol (VITAMIN D3) 1,000 unit tab tablet Take by mouth. - metoprolol succinate ER (TOPROL XL) 50 mg 24 hr tablet Take 50 mg by mouth. I have interviewed and examined the patient. I have reviewed the medical record and/or the pre-anesthesia evaluation, pertinent labs, and test results. This contains updated information obtained within 48 hours of Surgery/Procedure. SIGNATURE: Tip Aparicio MD PATIENT NAME: Miri Cai DATE: February 07, 2022 TIME: 7:41 AM CSN: [id number] [facility] BRIEF OP NOTon 02-07-2022 BRIEF OP NOT HNO ID: [id number] Author: Roby Alexander MD Service: ? Author Type: Physician Type: Brief Op Note Filed: 02/07/2022 2:44 AM Note Text: BRIEF OPERATIVE / PROCEDURE NOTE LOG ID: [id number] SURGERY/PROCEDURE DATE: 02/07/2022 INCISION/PROCEDURE START TIME: INCISION CLOSE/PROCEDURE END TIME: SURGEON(S)/PROCEDURAL IST(S) AND DISTILLATION OPERATOR HELPER(S): Surgeon(s) and Role: * Roby Alexander MD - Primary No Additional Staff SURGERY/PROCEDURE(S): DCA with Lt ICA stenting and Lt MCA thrombectomy ANESTHESIA: General FINDINGS: occlusion of Lt ICa and two Lt M2 branches ESTIMATED BLOOD LOSS: 20 mls SPECIMENS: None COMPLICATIONS: None PRE-OP/PRE-PROCEDURE DIAGNOSIS: stroke POST-OP/POST-PROCEDUR E DIAGNOSIS: Same as Preop SIGNATURE: Roby Alexander MD PATIENT NAME: Miri Cai DATE: February 07, 2022 TIME: 2:42 AM [facility] CBC W Auto Differential pane l (Bld)on 02-07-2022 Basophils (Bld) [#/Vol] 10*3/uL Normal <0.11 A [facility] Comment on above: Order Comment: Speci men Type: BLOOD SPECIMENOrdering Facility: [facility] Address: [address] [address] Performed By: #### 5 7021-8 ####[facility]ORATORYCLIA [id number] [place] [address] [place] Basophils/100 WBC (Bld) 0.2 % Normal A [facility] Comment on above: Order Comment: Speci men Type: BLOOD SPECIMENOrdering Facility: [facility] Address: [address] [place] [address] Performed By: #### 5 7021-8 ####[facility]ORATORYCLIA [id number] [address] OF [facility] Differential cell count method Nom (Bld) Auto Normal [facility] Comment on above: Order Comment: Speci men Type: BLOOD SPECIMENOrdering Facility: [facility] Address: [address] [place] [address] Performed By: #### 5 7021-8 ####[facility] LABORATORYCLIA [id number] [place] [address] [place] Eosinophils (Bld) [#/Vol] 10*3/uL Normal <0.46 [facility] Comment on above: Order Comment: Speci men Type: BLOOD SPECIMENOrdering Facility: [facility] Address: [address] [address] Performed By: #### 5 7021-8 ####[facility]ORATORYCLIA [id number] [address] Eosinophils/100 WBC (Bld) 0.0 % Normal [facility] Comment on above: Order Comment: Speci men Type: BLOOD SPECIMENOrdering Facility: [facility] Address: [address] [place] [address] Performed By: #### 5 7021-8 ####[facility]ORATORYCLIA [id number] [address] [place] Erythrocyte distribution width (RBC) [Ratio] 14.3 % Normal 11.5-15.0 [facility] Comment on above: Order Comment: Speci men Type: BLOOD SPECIMENOrdering Facility: [facility] Address: [address] [place] [address] Performed By: #### 5 7021-8 ####[facility]ORATORYCLIA [id number] [address] [place] Hematocrit (Bld) [Volume fraction] 33.9 % Low 39.0-51.0 [facility] Comment on above: Order Comment: Speci men Type: BLOOD SPECIMENOrdering Facility: [facility] Address: [address] [place] [address] Performed By: #### 5 7021-8 ####[facility]ORATORYCLIA [id number] [address] STATES OF [facility] Hemoglobin (Bld) [Mass/Vol] 11.2 g/dL Low 13.0-17.0 [facility] Comment on above: Order Comment: Speci men Type: BLOOD SPECIMENOrdering Facility: [facility] Address: [address] [place] [address] Performed By: #### 5 7021-8 ####[facility]ORATORYCLIA [id number] [address] OF [place] IMMATURE GRAN % 0.2 % Normal [facility] Comment on above: Order Comment: Speci men Type: BLOOD SPECIMENOrdering Facility: [facility] Address: [address] [place] [address] Performed By: #### 5 7021-8 ####[facility]ORATORYCLIA [id number] [address] [place] IMMATURE GRAN ABS <0.03 Normal <0.[address] [facility] Comment on above: Order Comment: Speci men Type: BLOOD SPECIMENOrdering Facility: [facility] Address: [address] [place] [address] Performed By: #### 5 7021-8 ####[facility] LABORATORYCLIA [id number] [address] Lymphocytes (Bld) [#/Vol] 1.00 10*3/uL Normal 1.00-4.00 [facility] Comment on above: Order Comment: Speci men Type: BLOOD SPECIMENOrdering Facility: [facility] Address: [address] [place] [address] Performed By: #### 5 7021-8 ####[facility] LABORATORYCLIA [id number] [address] Lymphocytes/100 WBC (Bld) 9.7 % Normal [facility] Comment on above: Order Comment: Speci men Type: BLOOD SPECIMENOrdering Facility: [facility] Address: [address] [place] [address] Performed By: #### 5 7021-8 ####[facility] LABORATORYCLIA [id number] [address] MCH (RBC) [Entitic mass] 30.7 pg Normal 26.0-34.0 [facility] Comment on above: Order Comment: Speci men Type: BLOOD SPECIMENOrdering Facility: [facility] Address: [address] [place] [address] Performed By: #### 5 7021-8 ####[facility] LABORATORYCLIA [id number] [address] STATES OF [facility] MCHC (RBC) [Mass/Vol] 33.0 g/dL Normal 30.5-36.0 [facility] Comment on above: Order Comment: Speci men Type: BLOOD SPECIMENOrdering Facility: [facility] Address: [address] [place] [address] Performed By: #### 5 7021-8 ####[facility] LABORATORYCLIA [id number] [address] MCV (RBC) [Entitic vol] 92.9 fL Normal 80.0-100.0 [facility] Comment on above: Order Comment: Speci men Type: BLOOD SPECIMENOrdering Facility: [facility] Address: [address] [place] [address] Performed By: #### 5 7021-8 ####[facility]ORATORYCLIA [id number] [place] [address] [place] Monocytes (Bld) [#/Vol] 0.95 10*3/uL High <0.87 [facility] Comment on above: Order Comment: Speci men Type: BLOOD SPECIMENOrdering Facility: [facility] Address: [address] [place] [address] Performed By: #### 5 7021-8 ####[facility]ORATORYCLIA [id number] [address] [place] Monocytes/100 WBC (Bld) 9.2 % Normal [facility] Comment on above: Order Comment: Speci men Type: BLOOD SPECIMENOrdering Facility: [facility] Address: [address] [place] [address] Performed By: #### 5 7021-8 ####[facility]ORATORYCLIA [id number] [place] [address] [place] Neutrophils (Bld) [#/Vol] 8.37 10*3/uL High 1.45-7.50 [facility] Comment on above: Order Comment: Speci men Type: BLOOD SPECIMENOrdering Facility: [facility] Address: [address] [place] [address] Performed By: #### 5 7021-8 ####[facility]ATORYCLIA [id number] [address] [place] Neutrophils/100 WBC (Bld) 80.7 % Normal [facility] Comment on above: Order Comment: Speci men Type: BLOOD SPECIMENOrdering Facility: [facility] Address: [address] [place] [address] Performed By: #### 5 7021-8 ####[facility]ORATORYCLIA [id number] [address] [place] Nucleated RBC (Bld) [#/Vol] 10*3/uL Normal <0.01 [facility] Comment on above: Order Comment: Speci men Type: BLOOD SPECIMENOrdering Facility: [facility] Address: [address] [place] [address] Performed By: #### 5 7021-8 ####[facility] LABORATORYCLIA [id number] [address] [place] Nucleated RBC/100 WBC (Bld) [Ratio] 0.0 /100 WBC Normal [facility] Comment on above: Order Comment: Speci men Type: BLOOD SPECIMENOrdering Facility: [facility] Address: [address] [place] [address] Performed By: #### 5 7021-8 ####[facility] LABORATORYCLIA [id number] [address] [place] Platelet mean volume (Bld) [Entitic vol] 10.4 fL Normal 9.0-12.7 [facility] Comment on above: Order Comment: Speci men Type: BLOOD SPECIMENOrdering Facility: [facility] Address: [address] [place] [address] Performed By: #### 5 7021-8 ####[facility] LABORATORYCLIA [id number] [address] [place] Platelets (Bld) [#/Vol] 187 10*3/uL Normal 150-400 [facility] Comment on above: Order Comment: Speci men Type: BLOOD SPECIMENOrdering Facility: [facility] Address: [address] [place] [address] Performed By: #### 5 7021-8 ####[facility] LABORATORYCLIA [id number] [address] [place] RBC (Bld) [#/Vol] 3.65 10*6/uL Low 4.20-6.00 [facility] Comment on above: Order Comment: Speci men Type: BLOOD SPECIMENOrdering Facility: [facility] Address: [address] [place], [place] [id number] Performed By: #### 5 7021-8 ####[facility] LABORATORYCLIA [id number] [address] WBC (Bld) [#/Vol] 10.36 10*3/uL Normal 3.70-11.00 [facility] Comment on above: Order Comment: Speci men Type: BLOOD SPECIMENOrdering Facility: [facility] Address: [address] [place], [place] [id number] Performed By: #### 5 7021-8 ####[facility] LABORATORYCLIA [id number] [place] [id number] [facility] CMPon 02-07-2022 A:G RATIO 1.53 Normal 1.1-2.5 [facility] Comment on above: Performed By: #### L 301.0120, L100.0005 #### [facility] [address] [place] [address] Albumin [Mass/Vol] 4.0 g/dL Normal 3.5-5.2 [facility] Comment on above: Performed By: #### L 301.0120, L100.0005 #### [facility] [address] [place] [address]35 ALK. PHOS 64 U/L Normal 40-130 [facility] Comment on above: Performed By: #### L 301.0120, L100.0005 #### [facility] [address] [place] [address]60 ALT [Catalytic activity/Vol] 18 U/L Normal 5-41 [facility] Comment on above: Performed By: #### L 301.0120, L100.0005 #### [facility] [address] [place] [address]44 Anion gap [Moles/Vol] 17.6 mmol/L Normal 15-22 [facility] Comment on above: Performed By: #### L 301.0120, L100.0005 #### [facility] [address] [place] [address]63 AST [Catalytic activity/Vol] 29 U/L Normal 5-40 [facility] Comment on above: Performed By: #### L 301.0120, L100.0005 #### - LABORATORY [address] [place] [address]5438 Bilirubin [Mass/Vol] 0.7 mg/dL Normal 0.2-1.2 [facility] Comment on above: Performed By: #### L 301.0120, L100.0005 #### [facility] - LABORATORY [address] [place] [address] Calcium [Mass/Vol] 9.4 mg/dL Normal 8.8-10.2 [facility] Comment on above: Performed By: #### L 301.0120, L100.0005 #### - LABORATORY [address] [place] [address]641 Chloride [Moles/Vol] 100 mmol/L Normal 98-107 [facility] Comment on above: Performed By: #### L 301.0120, L100.0005 #### [facility] - LABORATORY [address] [place] [address]2778 CO2 [Moles/Vol] 23 mmol/L Normal 22-29 [facility] Comment on above: Performed By: #### L 301.0120, L100.0005 #### [facility] - LABORATORY [address] [place] [address]17 Creatinine [Mass/Vol] 1.01 mg/dL Normal 0.70-1.20 [facility] Comment on above: Performed By: #### L 301.0120, L100.0005 #### [facility] - LABORATORY [address] [place] [address]75 eGFR if AFR FAHAD > 60 ml/min/1.73m2 Normal [facility] Comment on above: Result Comment: eGFR >= 60 Indicates normal kidney function. * eGFR IS AN ESTIMATE * (AFR FAHAD = ) (non-AFR AM = NON-) MDRD calculation used in the eGFR should not be used to dose medications. For further limitations of the eGFR please refer to the Physician Website or the National Kidney Disease Education Program website (www.nkdep.nih.gov). Performed By: #### L 301.0120, L100.0005 #### [facility] - LABORATORY [address] [place] [address]50 eGFR nonAFR Fahad > 60 ml/Min/1.73m2 Normal [facility] Comment on above: Performed By: #### L 301.0120, L100.0005 #### [facility] [address] [place] [address] Globulin (S) [Mass/Vol] 2.6 g/dL Normal 1.5-4.5 [facility] Comment on above: Performed By: #### L 301.0120, L100.0005 #### [facility] [address] [place] [address] 98929 Glucose [Mass/Vol] 170 mg/dL High 82-115 [facility] Comment on above: Performed By: #### L 301.0120, L100.0005 #### [facility] [address] [place] [address]8080 Potassium [Moles/Vol] 4.6 mmol/L Normal 3.5-5.0 [facility] Comment on above: Performed By: #### L 301.0120, L100.0005 #### - LABORATORY [address] [place] [address] 61658 Protein [Mass/Vol] 6.6 g/dL Normal 6.4-8.3 [facility] Comment on above: Performed By: #### L 301.0120, L100.0005 #### [facility] [address] [place] [address] 23496 Sodium [Moles/Vol] 136 mmol/L Normal 135-145 [facility] Comment on above: Performed By: #### L 301.0120, L100.0005 #### [facility] [address] [place] [address] 38302 Urea nitrogen [Mass/Vol] 24 mg/dL High 8-23 [facility] Comment on above: Performed By: #### L 301.0120, L100.0005 #### [facility] [address] [place] [address] CONSULTon 02-07-2022 CONSULT HNO ID: [id number] Author: Roby Alexander MD Service: ? Author Type: Physician Type: Consults Filed: 02/20/2022 7:51 PM Note Text: [facility] - Consultation PATIENT NAME: MIRI CAI CSN: [id number] DATE OF : 1945 SEX/AGE: M/76 PATIENT TYPE: I HOSP SVC: ICU LOCATION: [facility] DATE OF SERVICE: 02/07/2022 TIME OF SERVICE: 01:35 AM CHIEF COMPLAINT: Left hemispheric ischemic stroke. I appreciate consult. I am seeing the patient upon request of Cleo Claire, physician publisher assistant in neuro-intensive care unit. I was first contacted concerning this gentleman by the stroke neurologist on-call. HISTORY OF PRESENT ILLNESS: Mr. Cai is a 76-year-old gentleman underwent today a surgery on his right shoulder. He was known to have atrial fibrillation and taking Eliquis that stopped on February 02, 2022, preparation for the surgery. Following surgery, the patient did well; however, shortly after he has sudden onset of right-sided weakness, right-sided neglect, and aphasia. The patient was given TNK and transferred to our institution for thrombectomy. Upon arrival, the patient clinically was unchanged. Still has flaccid right upper and lower extremity and right side neglect and aphasia. I discussed the case with the patient's sister Hilda Fang at #[phone]. I explained to her that we can perform the procedure with a 5% chance of complication and 95% chance to go smoothly. I told her that the 50% of the patient thrombectomy. They will improve clinically, 45% chance of no clinical improvement, 5% chance of clinical worsening, especially if complication happened. Also, she was aware of the chances of post TNK of 5% to 6% chance of bleeding. She gave me the consent form. We will proceed promptly. I spent 40 minutes reviewing the patient's chart, managing his care, examining him, and discussing the case with the sister. More than 50% of my time spent in direct contact with the patient and his sister over the phone. Roby Alexander MD Neurosurgery FA:ezekiel /[phone] Normal [facility] CONSULT HNO ID: [id number] Author: Kayode James MD Service: Cardiovascular Medicine Author Type: Physician Type: Consults Filed: 02/07/2022 1:05 PM Note Text: CARDIOVASCULAR INTENSIVE CARE UNIT (CVICU) Consult note Patient Name: Miri Cai Subjective HPI Mr. Miri Cai is a 76 year old male with PMH type II DM, paroxysmal atrial fibrillation on Eliquis. Patient's Eliquis therapy was held for 2 to 3 days prior to elective shoulder surgery. The patient had a scheduled left shoulder arthroplasty yesterday at the [facility] on 02/06 following which he was found to have a sudden onset right upper and lower extremity weakness, facial droop and aphasia. Stroke evaluation was performed and the following CTA showed a proximal left cervical ICA occlusion and the new occlusion at M2. He was found to be high risk for the administering TNK but due to the delay in transporting he patient to the [facility], after discussing with neurologist, TNK was administered and Shortly thereafter, patient reportedly diaphoretic and concern for ST elevation in II, III, aVF on EKG. On arrival, patient is awake and alert. He is globally aphasic. 0/5 strength on the LUE/LLE, + facial droop, No visual deficit. Does cross midline. Some L neglect. NIHSS score of 18. Tachycardic on tele. Aflutter HR 120s-130s. EKG here with IRBBB (noted on previous EKG), new what appears to be ST elevation w/ TWI over Q waves most prominent in III, aVF suggestive of possible late PA. Patient appears comfortable and in no distress. Taken to [facility] for thrombectomy. NSICU admit post [facility] for continued stroke management. In the hospital, the patient underwent thrombectomy and Lt ICA and two M2 branch stenting . Cardiology was consulted for concerns with the EKG changes. PAST MEDICAL HISTORY Diagnosis Date Arrhythmia Diabetes mellitus (HCC) Essential hypertension PAST SURGICAL HISTORY Procedure Laterality Date NON-MELANOMA SKIN CANCER TUMOR BOARD - [facility] 10/2021 REMV CATARACT EXTRACAP,INSERT LENS Bilateral 06/2021 REPAIR INCISIONAL HERNIA,REDUCIBLE 2008 Family history: Insignificant to the patient's care given his advanced age Social History Tobacco Use Smoking status: Former Types: Cigarettes, Cigars Smokeless tobacco: Never Substance Use Topics Alcohol use: Yes Comment: not very often Drug use: Yes No current facility-administered medications on file prior to encounter. Current Outpatient Medications on File Prior to Encounter Medication Sig ELIQUIS 5 mg tab(s) Take 5 mg by mouth twice daily. Ascorbic Acid 1,000 mg TbER Take by mouth. cholecalciferol (VITAMIN D3) 1,000 unit tab tablet Take by mouth. metoprolol succinate ER (TOPROL XL) 50 mg 24 hr tablet Take 50 mg by mouth. Review of systems: Cannot be obtained due to patient's aphasia Objective OBJECTIVE Patient Vitals for the past 4 hrs: BP Pulse Temp Resp SpO2 02/07/22 1000 110/70 110 37 ?C (98.6 ?F) 19 100 % 02/07/22 0900 112/65 (!) 139 36.7 ?C (98.1 ?F) 27 100 % 02/07/22 0800 97/65 90 36.4 ?C (97.5 ?F) 23 100 % Body mass index is 26.13 kg/m?., Hemoglobin A1C (%) Date Value 02/07/2022 6.4 Intake/Output Summary (Last 24 hours) at 02/07/2022 1151 Last data filed at 02/07/2022 0800 Gross per 24 hour Intake 1414 ml Output 220 ml Net 1194 ml Physical Exam Constitutional: Appearance: He is normal weight. HENT: Head: Normocephalic and atraumatic. Right Ear: Tympanic membrane, ear canal and external ear normal. Left Ear: Tympanic membrane, ear canal and external ear normal. Nose: Nose normal. Mouth/Throat: Mouth: Mucous membranes are moist. Eyes: Conjunctiva/sclera: Conjunctivae normal. Comments: Anisocoria Cardiovascular: Rate and Rhythm: Normal rate and regular rhythm. Pulses: Normal pulses. Heart sounds: Normal heart sounds. Pulmonary: Effort: Pulmonary effort is normal. Breath sounds: Normal breath sounds. Abdominal: General: Bowel sounds are normal. Palpations: Abdomen is soft. There is no mass. Comments: No organomegaly appreciated Musculoskeletal: Comments: Right upper and lower limb 2+ weakness Right sided facial droop Skin: General: Skin is dry. Capillary Refill: Capillary refill takes less than 2 seconds. Neurological: Mental Status: He is alert. Motor: Weakness present. Comments: Right upper and lower limb 2+ weakness Right sided facial droop Psychiatric: Comments: Difficult to assess given patient's aphasia LABORATORY: Cardiac:No results for input(s): CKTEST, CKMB, CKMBP, TROPONIN, BNP in the last 168 hours. BLOOD GAS: CBC: Recent Labs 02/07/22 0352 02/06/22 2146 02/06/22 0924 WBC 10.36 8.2 5.3 HB 11.2* 13.4* 14.3 HCT 33.9* 40.1* 43.5 PLT 187 197 205 MCV 92.9 93.1 93.4 RDWCV 14.3 -- -- NEUTP 80.7 83.8* 73.0 ABSNEUT 8.37* -- -- LYMPHP 9.7 6.2* 15.8* MONOP 9.2 9.8 10.4 EODINP -- 0.0* 0.5 COAG: Recent Labs 01/11 (more content not included)... Normal [facility] CONSULT HNO ID: [id number] Author: Diaz Aponte MD Service: Orthopaedic Surgery Author Type: Physician Type: Consults Filed: 02/08/2022 11:59 AM Note Text: Orthopaedic Surgery Consultation Note Reason for Consultation: POD1 L TSA in setting of stroke with administration of chemo thrombolysis Consulting Physician: Diaz Aponte MD Date: February 07, 2022 Time: 9:57 AM ORTHO STAFF: History and physical examination reviewed. Orthopaedic consultation reviewed. Patient seen and examined. Agree with orthopaedic resident assessment and plan, except where changes made. Imaging demonstrates appropriate post-operative appearance (POD #2) of reverse left total shoulder arthroplasty. Recommend follow-up with operative surgeon. Continue non-weight bearing left upper extremity until advanced in that office. Reviewed with nursing staff. Contacted family to answer any questions. Diaz Aponte MD History of Present Illness 76 year old male being evaluated today regarding patient having thrombolysis with tenectaplase shortly after L TSA. Per notes, patient had surgery 02/06 and was diagnosed with a stroke shortly after. Due to difficulties with ground and air transport on 02/06, the decision was made to administer tenectaplase and for him to be transferred rather than wait for mechanical thrombolysis. Patient is aphasic at this time and can only say yes and no, nod yes or no. Patient denies N/T. No N/V/F/C. Pain is controlled. Review of Systems 10-point ROS negative except as in HPI. History PAST MEDICAL HISTORY Diagnosis Date Arrhythmia Diabetes mellitus (HCC) Essential hypertension PAST SURGICAL HISTORY Procedure Laterality Date NON-MELANOMA SKIN CANCER TUMOR BOARD - [facility] 10/2021 REMV CATARACT EXTRACAP,INSERT LENS Bilateral 06/2021 REPAIR INCISIONAL HERNIA,REDUCIBLE 2008 PNEUMOCOCCAL: 65+(1 - PCV) Never done URINE ALBUMIN:CREATININE RATIO Never done DILATED RETINAL EXAM Never done DIABETIC FOOT EXAM Never done ANNUAL PCP TEAM CHRONIC DISEASE VISIT Never done HEPATITIS C SCREENING Never done BP CONTROLLED (<130/80) Never done DTAP,TDAP,TD(1 - Tdap) Never done SHINGRIX VACCINE(1 of 2) Never done ADVANCE DIRECTIVE DISCUSSION Never done DEPRESSION ASSESSMENT Never done COVID-19 VACCINE(4 - Booster for Moderna series) due on 06/14/2021 INFLUENZA(1) due on 01/10/2022 HBA1C due on 08/07/2022 LDL CHOLESTEROL due on 02/07/2023 A review of the patient's history was completed and is otherwise non-contributory to the patient's presenting condition. Medications ELIQUIS 5 mg tab(s)Take 5 mg by mouth twice daily.Disp: Rfl: Ascorbic Acid 1,000 mg TbERTake by mouth.Disp: Rfl: cholecalciferol (VITAMIN D3) 1,000 unit tab tabletTake by mouth.Disp: Rfl: metoprolol succinate ER (TOPROL XL) 50 mg 24 hr tabletTake 50 mg by mouth.Disp: Rfl: Allergies Patient has no known allergies. Family History No family history on file. Social History Employer And Job Title: None on file Years Of Education Completed: Not specified Marital Status: Unknown Social History Tobacco Use Smoking status: Former Types: Cigarettes, Cigars Smokeless tobacco: Never Substance Use Topics Alcohol use: Yes Comment: not very often Drug use: Yes Physical Examination Vitals BP 112/65 Pulse (!) 139 Temp 36.7 ?C (98.1 ?F) Resp 27 Ht 179.1 cm (5' 10.5) Wt 83.8 kg (184 lb 11.9 oz) SpO2 100% BMI 26.13 kg/m? General AANDO. NAD. Cooperative throughout entire interview. Appropriate mood and affect. Left Upper Extremity Incision with buried stitches and copious skin glue overlying the incision noted. No dressing noted on examination. SILT Ax/M/U/R. (Patient nods head yes) Patient does not cooperate with motor testing. R/U pulses palpable; BCR all digits. Physical examination otherwise non-contributory to consultation. Labs Recent Labs 02/07/22 0352 02/06/22 2146 02/06/22 0924 NA 137 136 139 K 4.7 4.6 4.5 CHLOR 103 100 101 CO2 20* 23 25 BUN 21 24* 22 CREAT 0.85 1.01 0.99 GLUC 159* 170* 114 ANION 14 17.6 17.5 CA 8.4* 9.4 9.9 MG 1.9 -- -- P 3.1 -- -- ALB 3.3* 4.0 -- AST -- 29 -- ALT 17 18 -- ALKPHOS 51 64 -- TBILI 1.0 0.7 -- WBC 10.36 8.2 5.3 HB 11.2* 13.4* 14.3 HCT 33.9* 40.1* 43.5 PLT 187 197 205 INR -- -- 1.0 Imaging NA Procedure(s) None Assessment Miri Cai is a 76 year old male POD1 s/p L TSA at [facility], administered thrombolytic agent Plan Management per primary team. Pain control. Weight-bearing status: . Non-weight bearing left upper extremity while admitted, advance in outpatient setting. Dressing(s): Maintain dressing c/d/i. Antibiotic(s): NA. Imaging: No further. No plan for acute orthopedic surgical intervention. Follow up with Dr. Bullock as an outpatient Orthopedics will follow peripherally Discussed with Dr. Aponte who agrees with the (more content not included)... Normal [facility] CONSULT HNO ID: [id number] Author: Roby Alexander MD Service: ? Author Type: Physician Type: Consults Filed: 02/07/2022 2:51 AM Note Text: Consult dictated Normal [facility] CT BRAIN WO IVCONon 02-08-20 CT BRAIN WO IVCON * * *Final Report* * * DATE OF EXAM: Feb 07 2022 4:46PM [facility] 0504 - CT BRAIN WO IVCON / PROCEDURE REASON: Stroke, follow up * * * * Physician Interpretation * * * * EXAMINATION: CT BRAIN WITHOUT IV CONTRAST CLINICAL HISTORY: Stroke, follow-up. TECHNIQUE: Serial axial images without IV contrast were obtained from the vertex to the foramen magnum. MQ: [id number] CT Radiation dose: Integrated Dose-Length Product (DLP) for this visit = 776 mGy*cm CT Dose Reduction Employed: Iterative recon COMPARISON: CT brain from outside institution dated 02/06/2022. RESULT: Water Ski Assembler (topogram) images: Unremarkable. Post-operative change: None. Acute change: No definite evidence of an acute infarct or other acute parenchymal process. Hemorrhage: There is vague asymmetric increased density within the left globus pallidus which could be due to contrast draining from cerebral angiography or petechial hemorrhagic transformation. ECASS hemorrhagic transformation score: HI 1 Mass Lesion / Mass Effect: There is no evidence of an intracranial mass or extraaxial fluid collection. No significant mass effect. Chronic change: Scattered patchy foci of low attenuation are present within supratentorial white matter which is a nonspecific finding but likely represents mild to moderate microvascular ischemia. Parenchyma: There is mild generalized volume loss. Ventricles: The ventricles are within normal limits of size and configuration for age. Paranasal sinuses and skull base: Small mucous retention cyst in the left maxillary sinus. The remaining visualized paranasal sinuses are grossly clear. The skull base and imaged soft tissues are unremarkable. IMPRESSION: 1. Contrast staining versus petechial hemorrhage in the left globus pallidus. Follow-up is suggested. Otherwise no evidence of acute intracranial process. 2. Chronic small vessel ischemic changes of the supratentorial white matter. Generalized brain parenchymal volume loss. Operations Recruiter: [facility] Transcribe Date/Time: Feb 07 2022 5:20P Dictated by : FILEMON ADAMSON MD This examination was interpreted and the report reviewed and electronically signed by: FILEMON ADAMSON MD on Feb 07 2022 5:29PM EST [id number] Normal [facility] Comprehensive metabolic 2000 panelon 02-07-2022 Albumin [Mass/Vol] 3.3 g/dL Low 3.9-4.9 [facility] Comment on above: Order Comment: Speci men Type: BLOOD SPECIMENOrdering Facility: [facility] Address: [address] [place] [address] Performed By: #### 2 4323-8, 29362-7, , 2776-05 ####[facility] LABORATORYCLIA [id number] [address] [place] ALP [Catalytic activity/Vol] 51 U/L Normal 38-113 [facility] Comment on above: Order Comment: Speci men Type: BLOOD SPECIMENOrdering Facility: [facility] Address: [address] [place] [address] Performed By: #### 2 4323-8, 48990-5, , 2776-05 ####[facility] LABORATORYCLIA [id number] [place] [address] [place] ALT With P-5'-P [Catalytic activity/Vol] 17 U/L Normal 10-[address] [facility] Comment on above: Order Comment: Speci men Type: BLOOD SPECIMENOrdering Facility: [facility] Address: [address] [place] [address] Performed By: #### 2 4323-8, 68954-7, , 2776-05 ####[facility] LABORATORYCLIA [id number] [address] [place] Anion gap [Moles/Vol] 14 mmol/L Normal 9-18 [facility] Comment on above: Order Comment: Speci men Type: BLOOD SPECIMENOrdering Facility: [facility] Address: [address] [place] [address] Performed By: #### 2 4323-8, 35357-3, , 2776- ####[facility] LABORATORYCLIA [id number] [place] [address] [place] AST With P-5'-P [Catalytic activity/Vol] Normal [facility] Comment on above: Order Comment: Speci men Type: BLOOD SPECIMENOrdering Facility: [facility] Address: [address] [place] [address] Result Comment: Unab le to assay due to interference from hemolysis. Suggest reorder as clinically indicated. Performed By: #### 2 4323-8, 73989-1, , 2776-05 ####[facility] LABORATORYCLIA [id number] [address] STATES OF [facility] Bilirubin [Mass/Vol] 1.0 mg/dL Normal 0.2-1.3 [facility] Comment on above: Order Comment: Speci men Type: BLOOD SPECIMENOrdering Facility: [facility] Address: [address] [place] [address] Performed By: #### 2 4323-8, 02766-9, , 2776-05 ####[facility] [id number] [address] [place] Calcium [Mass/Vol] 8.4 mg/dL Low 8.5-10.2 [facility] Comment on above: Order Comment: Speci men Type: BLOOD SPECIMENOrdering Facility: [facility] Address: [address] [place] [address] Performed By: #### 2 4323-8, 61008-4, , 2776-05 ####[facility] LABORATORYCLIA [id number] [address] [place] Chloride [Moles/Vol] 103 mmol/L Normal 97-105 [facility] Comment on above: Order Comment: Speci men Type: BLOOD SPECIMENOrdering Facility: [facility] Address: [address] [place] [address] Performed By: #### 2 4323-8, 97387-2, , 2776- ####[facility] [id number] [place] [id number] [place] CO2 [Moles/Vol] 20 mmol/L Low 22-30 [facility] Comment on above: Order Comment: Speci men Type: BLOOD SPECIMENOrdering Facility: [facility] Address: [address] [place] [address] Performed By: #### 2 4323-8, 68745-7, , 2776-05 ####[facility] [id number] [place] [address] [place] Creatinine [Mass/Vol] 0.85 mg/dL Normal 0.73-1.22 [facility] Comment on above: Order Comment: Speci men Type: BLOOD SPECIMENOrdering Facility: [facility] Address: [address] [place] [address] Performed By: #### 2 4323-8, 93365-6, , 2776-05 ####[facility]PITALIA [id number] [place] [address] [place] ESTIMATED GLOMERULAR FILTRATION RATE 89 mL/min/1.73m??? Normal >=60 [facility] Comment on above: Order Comment: Speci men Type: BLOOD SPECIMENOrdering Facility: [facility] Address: [address] [place] [address] Result Comment: Ethan mated Glomerular Filtration Rate (eGFR) is calculated using the 2020 CKD-EPI creatinine equation. This equation utilizes serum creatinine, sex, and age as parameters. The creatinine assay has traceable calibration to isotope dilution-mass spectrometry. Refer to KDIGO guidelines for clinical interpretation. In patients with unstable renal function, e.g. those with acute kidney injury, the eGFR may not accurately reflect actual GFR. Performed By: #### 2 4323-8, 65659-1, , 2776-05 ####[facility] LABORATORYCLIA [id number] [place] [address] [place] Glucose [Mass/Vol] 159 mg/dL High 74-99 [facility] Comment on above: Order Comment: Speci men Type: BLOOD SPECIMENOrdering Facility: [facility] Address: [address] [place], [place] [id number] Result Comment: The [place] Diabetes Association (ADA) provides guidance for cutoff values for fasting glucose and random glucose. The ADA defines fasting as no caloric intake for at least 8 hours. Fasting plasma glucose results between 100 to 125 mg/dL indicate increased risk for diabetes (prediabetes). Fasting plasma glucose results greater than or equal to 126 mg/dL meet the criteria for diagnosis of diabetes. In the absence of unequivocal hyperglycemia, results should be confirmed by repeat testing. In a patient with classic symptoms of hyperglycemia or hyperglycemic crisis, random plasma glucose results greater than or equal to 200 mg/dL meet the criteria for diagnosis of diabetes. Reference: Standards of Medical Care in Diabetes 2016, [place] Diabetes Association. Diabetes Care. 2016.39(Suppl 1). Performed By: #### 2 4323-8, 68192-6, , 2776-05 ####[facility] LABORATORYCLIA [id number] [place] [address] [place] Potassium [Moles/Vol] 4.7 mmol/L Normal 3.7-5.1 [facility] Comment on above: Order Comment: Suzanne rivera Type: BLOOD SPECIMENOrdering Facility: [facility] Address: [address] [place], [place] [address] Performed By: #### 2 4323-8, 28491-3, , 2776-05 ####[facility]ORATORYCLIA [id number] [place] [address] [place] Protein [Mass/Vol] 5.4 g/dL Low 6.3-8.0 [facility] Comment on above: Order Comment: Suzanne rivera Type: BLOOD SPECIMENOrdering Facility: [facility] Address: [address] [id number] Performed By: #### 2 4323-8, 29627-9, , 2776- ####[facility]ORATORYCLIA [id number] [place] [address] [place] Sodium [Moles/Vol] 137 mmol/L Normal 136-144 [facility] Comment on above: Order Comment: Speci men Type: BLOOD SPECIMENOrdering Facility: [facility] Address: [address] [place], [place] [address] Performed By: #### 2 4323-8, 38468-8, 68548-6, 2776-05 ####[facility]ORATORYCLIA [id number] [place] [address] [place] [facility] Urea nitrogen [Mass/Vol] 21 mg/dL Normal 9-24 [facility] Comment on above: Order Comment: Speci men Type: BLOOD SPECIMENOrdering Facility: [facility] Address: [address] [place], [place] [address] Performed By: #### 2 4323-8, 80168-4, , 2776-05 ####[facility] LABORATORYCLIA [id number] [place] [address] [facility] ECHOon 02-07-2022 Echocardiography Echocardiography Report: Transthoracic Echo [facility] Date of service: 02/07/2022 10:30:22 AM [facility] Ordering physician: CLEO CLAIRE Indication: Stroke Technologist: Emily Lui [facility] Interpreting physician: Endy Bates MD PATIENT: Name: MIRI CAI : 1945 Age: 76 years Gender: M History of myocardial infarction, hypertension and diabetes mellitus. Primary rhythm: sinus. Height: 179.10 cm BSA: 2.04 m Weight: 83.80 kg BMI: 26.1 kg/m Heart rate 89 bpm Blood pressure 97/65 mmHg Technically difficult exam due to suboptimal positioning. Color Doppler was utilized to interrogate the cardiac valves assessed and spectral Doppler was utilized to determine the flow velocities and pressure gradients reported in this exam. MEASUREMENTS: Value Indexed Normal Max aortic dimension 3.1 cm Ao < 3.8 Left atrium diameter 3.3 cm (2D) Left atrial volume 48 ml (4ch A-L) 24 ml/m Kusum <= 34 LV ID (diastole) 3.9 cm (2D) 1.89 cm/m LV ID (systole) 3.1 cm (2D) 1.53 cm/m IVS, leaflet tips 1.0 cm (2D) Posterior wall thickness 1.0 cm (2D) Left ventricular mass 123 g (2D) 60 g/m LV stroke volume 46 ml (2D biplane) LV end diastolic volume 66 ml (2D biplane) 32.1 ml/m 34<=EDVi<75 LV end systolic volume 19 ml (2D biplane) 9.4 ml/m Ejection Fraction 71 % (2D biplane) EF > 52 FINDINGS: LEFT VENTRICLE The left ventricle is small. Left ventricular systolic function is normal. Indeterminate left ventricular diastolic dysfunction due to inconsistent or technically suboptimal data. Wall Motion: All scored segments are normal. RIGHT VENTRICLE The right ventricle is unseen or not interrogated. RV systolic tissue Doppler velocity is 11.0 cm/s. Tricuspid annular displacement is 1.8 cm. Estimated right ventricular systolic pressure is not reported due to an insufficient tricuspid regurgitation signal. Estimated right atrial pressure is 3 mmHg based on IVC assessment. LEFT ATRIUM The left atrial cavity is normal in size. RIGHT ATRIUM Unable to reliably measure RA volume due to technical limitations. Inferior Vena Cava: The inferior vena cava appears normal measuring 1.6 cm. The vessel decreases greater than 50 percent with inspiration. MITRAL VALVE The mitral valve leaflets are structurally normal. There is no mitral valve regurgitation. TRICUSPID VALVE The tricuspid valve leaflets are structurally normal. There is trace tricuspid valve regurgitation. AORTIC VALVE The aortic valve cusps are structurally normal. There is no aortic valve regurgitation. Tricuspid aortic valve. The LVOT diameter is 2.2 cm. PULMONIC VALVE The pulmonic valve cusps are structurally normal. There is trace pulmonic valve regurgitation. AORTA The visualized aorta is normal in size. Measurements - Sinus: 3.1 cm. PERICARDIUM There is no pericardial effusion. There is an epicardial fat pad. CONCLUSIONS: - Technically difficult exam due to suboptimal positioning. - Exam indication: Stroke - The left ventricle is small. Left ventricular systolic function is normal. EF = 71 5% (2D biplane) - RV was not clearly visualized, on limited views appears to be grossly normal in size and function - There are no significant valvular abnormalities. - The patient has not had a prior CC echocardiographic exam for comparison. * * * Final * * * CC [employer] Image : [id number] micsSISUID Normal [facility] GLUCOSE FSon 02-07-2022 Glucose [Mass/Vol] 170 mg/dL High 70-110 [facility] Comment on above: Performed By: #### L 100.0070 #### ML - [facility] [address] [id number] HIGH SENSITIVITY TROPONIN To n 02-07-2022 HIGH SENSITIVITY HENRY 14 ng/L High <12 [facility] Comment on above: Order Comment: Speci men Type: BLOOD SPECIMENOrdering Facility: [facility] Address: [address] [place] [address] Result Comment: When assessing risk for acute coronary syndromes: In patients undergoing blood draw greater than or equal to 2 hours from symptom onset, with history of very low to moderate risk and non-ischemic ECG, an initial hs-Troponin T less than 12 ng/L AND a 1 hour delta hs-Troponin T less than 3 ng/L should be considered very low risk for 30 day MACE. Performed By: #### H STNT ####[facility] LABORATORYCLIA [id number] [address] HIGH SENSITIVITY HENRY 13 ng/L High <12 [facility] Comment on above: Order Comment: Parveeni men Type: BLOOD SPECIMENOrdering Facility: [facility] Address: [address] [place] [address] Result Comment: When assessing risk for acute coronary syndromes: In patients undergoing blood draw greater than or equal to 2 hours from symptom onset, with history of very low to moderate risk and non-ischemic ECG, an initial hs-Troponin T less than 12 ng/L AND a 1 hour delta hs-Troponin T less than 3 ng/L should be considered very low risk for 30 day MACE. Performed By: #### H STNT ####[facility] LABORATORYCLIA [id number] [address] OF [facility] HIGH SENSITIVITY HENRY 12 ng/L High <12 [facility] Comment on above: Order Comment: Speci men Type: BLOOD SPECIMENOrdering Facility: [facility] Address: [address] [place] [address] Result Comment: When assessing risk for acute coronary syndromes: In patients undergoing blood draw greater than or equal to 2 hours from symptom onset, with history of very low to moderate risk and non-ischemic ECG, an initial hs-Troponin T less than 12 ng/L AND a 1 hour delta hs-Troponin T less than 3 ng/L should be considered very low risk for 30 day MACE. Performed By: #### H STNT ####[facility] LABORATORYCLIA [id number] [address] STATES OF [facility] HISTORY PHYSICALon HISTORY PHYSICAL HNO ID: [id number] Author: Cleo Claire PA-C Service: Neurology ICU Author Type: Physician Wire Coating Machine Operator Type: HANDP Filed: 02/07/2022 3:41 AM Note Text: Attestation signed by Gregory Rey MD at 02/07/2022 2:57 PM STAFF ADDENDUM NOTE: I have reviewed the ICU note for patient Miri Cai, obtained and documented by YI Claire. I personally participated in the grover components. I have discussed the management of the patient's care, and agree with the formulated assessment and plan recommendations. I have examined the patient and the following comments revise or confirm relevant grover components of the note. Assessment/Plan: Asa/plavix once 24hr post TNK CT reviewed, on statin Plan CUS tomorrow per nil recs Sbp control Appreciate Cards recs Ortho recs Pt/ot Gregory Rey MD Staff, Neurointensive Care [facility] [place] Pager [phone] DATE of SERVICE: February 07, 2022 TIME of SERVICE: 2:55 PM SERVICE DATE: 02/07/2022 SERVICE TIME: 2:30AM NEUROLOGICAL INTENSIVE CARE UNIT HISTORY AND PHYSICAL (STROKE CARE PATH) REASON FOR STROKE EVALUATION: Aphasia and Left Sided Weakness, Facial droop REASON FOR NEUROLOGICAL ICU ADMISSION: Acute L MCA ischemic stroke Stroke Mechanism: Cardioembolic - Afib/flutter off OAC METRICS: Initial NIHSS Score: 18 Larose Coma Scale Totals (Calculated): 10 Date Patient Last Known Well: 02/06/22 Time Patient Last Known Well: 2099 Date of Patient Arrival at THIS Facility: 02/07/22 Time of Patient Arrival at THIS Facility: 117 Pre-admission: Was patient on antithrombotic agent prior to admission: Anticoagulant Anticoagulant: Apixaban (Held on 02/02 for pre surgery) Premorbid Modified Talha Score: 0=0 - No symptoms at all Baseline Functional Status (i.e. ADL's, Ambulatory Status, Cognitive Issues): Independent for ADLs. AANDOx3. Ambulatory Subjective HPI: Patient is a 76 year old M with past medical history significant for HTN, DM type 2, pAF on Eliquis (held for surgery), who presents as transfer from [place] ED with findings of acute L MCA stroke. Patient was admitted to [facility] after undergoing elective left shoulder replacement yesterday AM (02/06). Post operatively, he was in his usual state of health aside from decreased ROM to LUE. LKW of 2100. At 2130, RN found patient to have sudden onset Right upper and lower extremity weakness, facial droop and aphasia. Stroke evaluation performed and patient found to have early ischemic changes to L insula, ASPECT score of 9. CTA demonstrating proximal L cervical ICA occlusion w/ distal reconstitution, then re-occlusion at M2. Initially felt to be high risk for TNK given recent surgery. Plan to transfer to [facility] for mechanical thrombectomy. However, patient could only be transported via ground d/t weather. Given delay, long discussion had between Dr. Alexander, stroke neurology, Hospital team at [place] and ortho surgeon. Ultimately decided to administer TNK. This was given at 2230. Shortly thereafter, patient reportedly diaphoretic and concern for ST elevation in II, III, aVF on EKG. On arrival, patient is awake and alert. He is globally aphasic. 0/5 strength on the LUE/LLE, + facial droop, No visual deficit. Does cross midline. Some L neglect. NIHSS score of 18. Tachycardic on tele. Aflutter HR 120s-130s. EKG here with IRBBB (noted on previous EKG), new what appears to be ST elevation w/ TWI over Q waves most prominent in III, aVF suggestive of possible late PA. Patient appears comfortable and in no distress. Taken to [facility] for thrombectomy. NSICU admit post [facility] for continued stroke management. PAST MEDICAL HISTORY Diagnosis Date - Arrhythmia - Diabetes mellitus (HCC) - Essential hypertension PAST SURGICAL HISTORY Procedure Laterality Date - NON-MELANOMA SKIN CANCER TUMOR BOARD [facility] 10/2021 - REMV CATARACT EXTRACAP,INSERT LENS Bilateral 06/2021 - REPAIR INCISIONAL HERNIA,REDUCIBLE 2008 No family history on file. Social History Tobacco Use - Smoking status: Former Types: Cigarettes, Cigars - Smokeless tobacco: Never Substance Use Topics - Alcohol use: Yes Comment: not very often - Drug use: Yes MEDICATIONS Prior to Admission ELIQUIS 5 mg tab(s), Take 5 mg by mouth twice daily., Disp: , Rfl: Ascorbic Acid 1,000 mg TbER, Take by mouth., Disp: , Rfl: cholecalciferol (VITAMIN D3) 1,000 unit tab tablet, Take by mouth., Disp: , Rfl: metoprolol succinate ER (TOPROL XL) 50 mg 24 hr tablet, Take 50 mg by mouth., Disp: , Rfl: ALLERGIES No Known Allergies COMPLETE REVIEW OF SYSTEMS Unable to obtain 2/2 global aphasia 2/2 acute stroke Objective BP 133/98 Pulse (!) 122 Resp 15 Ht 179.1 cm (5' 10.5) Wt 83.8 kg (184 lb 11.9 oz) SpO2 97% B (more content not included)... Normal [facility] HISTORY PHYSICAL HNO ID: [id number] Author: Roby Alexander MD Service: ? Author Type: Physician Type: HANDP Filed: 02/07/2022 1:36 AM Note Text: UPDATED PROCEDURAL SEDATION HISTORY AND PHYSICAL EXAMINATION SERVICE DATE: 02/07/2022 SERVICE TIME: 1:36 AM PHYSICAL EXAM MUST BE COMPLETED ON ADMISSION PROCEDURE: therombectomy Procedure Indications: stroke The History and Physical (completed in the past 30 days) has been reviewed and the patient has been examined. The contents accurately reflect the patient's condition with the following additions or revisions since the HANDP was completed. ASA Class: ASA Class:: Moribund patient who is not expected to survive without the operation Examination indicates no changes. AIRWAY: Airway Visualization of Uvula: Yes Mouth opening greater than 2 fingerbreadths: Yes Neck Full Range of Motion: Yes LUNGS: Lungs clear to auscultation CARDIAC: Atrial fibrillation,Tachycar mackenzie Provisional Diagnosis/Treatment Plan: thrombectomy and possible carotid stenting SEDATION GOAL: Anesthesia This HANDP can be found in the Consult note dated 02/07/2022. SIGNATURE: Roby Alexander MD PATIENT NAME: Miri Cai DATE: February 07, 2022 TIME: 1:35 AM Normal [facility] HbA1c (Bld)on 02-07-2022 Average glucose Estimated from glycated hemoglobin (Bld) [Mass/Vol] 137 mg/dL Normal [facility] Comment on above: Order Comment: Suzanne rivera Type: BLOOD SPECIMENOrdering Facility: [facility] Address: [address] [place] [address] Result Comment: eAG: (Estimated average glucose) is a calculated value from HgbA1c and is banking representative of the average blood glucose level in the last 2-3 month period. Performed By: #### 5 5454-3 ####[facility] LABORATORYCLIA [id number] [place] [address] [place] HbA1c (Bld) [Mass fraction] 6.4 % High 4.3-5.6 [facility] Comment on above: Order Comment: Suzanne rivera Type: BLOOD SPECIMENOrdering Facility: [facility] Address: [address] [address] Result Comment: [place] Diabetes Association guidelines indicate that patients with HgbA1c in the range 5.7-6.4% are at increased risk for development of diabetes, and intervention by lifestyle modification may be beneficial. HgbA1c greater or equal to 6.5% is considered diagnostic of diabetes. Performed By: #### 5 5454-3 ####[facility]ATORYCLIA [id number] [address] Lipid 1996 panelon 2 Cholesterol [Mass/Vol] 142 mg/dL Normal <200 [facility] Comment on above: Order Comment: Speci men Type: BLOOD SPECIMENOrdering Facility: [facility] Address: [address] [place] [address] Result Comment: <200 mg/dL, Desirable 200-239 mg/dL, Borderline high >239 mg/dL, High Performed By: #### 2 4323-8, 93959-6, , 2776-05 ####[facility]ORYCLIA [id number] [address] Cholesterol in HDL [Mass/Vol] 50 mg/dL Normal >39 [facility] Comment on above: Order Comment: Speci men Type: BLOOD SPECIMENOrdering Facility: [facility] Address: [address] [place] [address] Result Comment: 40-5 9 mg/dL, Acceptable >59 mg/dL, High: Negative risk factor for coronary heart disease <40 mg/dL, Low: Positive risk factor for coronary heart disease Performed By: #### 2 4323-8, 56483-3, , 2776-05 ####[facility]ORYCLIA [id number] [address] Cholesterol in LDL [Mass/Vol] 83 mg/dL Normal <100 [facility] Comment on above: Order Comment: Speci men Type: BLOOD SPECIMENOrdering Facility: [facility] Address: [address] [address] Result Comment: <100 mg/dL, Optimal 100-129 mg/dL, Near optimal/above optimal 130-159 mg/dL, Borderline high 160-189 mg/dL, High >189 mg/dL, Very high Secondary prevention optimal LDL Cholesterol levels are recommended to be < 70 mg/dL Performed By: #### 2 4323-8, 87705-0, , 2776- ####[facility]ORYCLIA [id number] [address] Cholesterol in LDL/Cholesterol in HDL [Mass ratio] 1.66 {ratio} Normal <2.54 [facility] Comment on above: Order Comment: Speci men Type: BLOOD SPECIMENOrdering Facility: [facility] Address: [address] [place] [address] Result Comment: Refe rence: 1. National Cholesterol Education Program ATP III Guideline At-A-Glance Quick Desk Reference: National Heart, Lung, and Blood [place]. National Institutes of Health. 2001: NIH Publication No. 01-3305. 2. An International Atherosclerosis Society position paper: global recommendations for the management of dyslipidemia: executive summary, Atherosclerosis. 2014: 232(2):410-413. Performed By: #### 2 4323-8, 96575-0, , 2776-05 ####[facility]ORATORYCLIA [id number] [address] OF [facility] Cholesterol in VLDL [Mass/Vol] 9 mg/dL Normal <30 [facility] Comment on above: Order Comment: Parveeni miguel Type: BLOOD SPECIMENOrdering Facility: [facility] Address: [address] [place] [address] Performed By: #### 2 4323-8, 54377-4, , 2776-05 ####[facility]ORATORYCLIA [id number] [address] STATES OF [facility] Cholesterol non HDL [Mass/Vol] 92 mg/dL Normal <130 [facility] Comment on above: Order Comment: Speci men Type: BLOOD SPECIMENOrdering Facility: [facility] Address: [address] Result Comment: <130 mg/dL, Optimal 130-159 mg/dL, Near optimal/above optimal 160-189 mg/dL, Borderline high 190-219 mg/dL, High >219 mg/dL, Very high Secondary prevention optimal non HDL Cholesterol levels are recommended to be <100 mg/dL Performed By: #### 2 4323-8, 46569-1, , 2776-05 ####[facility]ORATORYCLIA [id number] [address] [place] Cholesterol.total/Choles terol in HDL [Mass ratio] 2.84 {ratio} Normal <5.10 [facility] Comment on above: Order Comment: Speci men Type: BLOOD SPECIMENOrdering Facility: [facility] Address: [address] [place] [address] Performed By: #### 2 4323-8, 77413-0, , 2776-05 ####[facility] LABORATORYCLIA [id number] [address] FASTING TIME 7 hrs Normal [facility] Comment on above: Order Comment: Speci men Type: BLOOD SPECIMENOrdering Facility: [facility] Address: [address] [place] [address] Result Comment: ethan mate Performed By: #### 2 4323-8, 34107-7, , 2776-05 ####[facility] LABORATORYCLIA [id number] [address] Triglyceride [Mass/Vol] 46 mg/dL Normal <150 A [facility] Comment on above: Order Comment: Speci men Type: BLOOD SPECIMENOrdering Facility: [facility] Address: [address] [place] [address] Result Comment: <150 mg/dL, Normal 150-199 mg/dL, Borderline high 200-499 mg/dL, High >499 mg/dL, Very high Performed By: #### 2 4323-8, 85179-8, , 2776-05 ####[facility] LABORATORYCLIA [id number] [address] OF [facility] MEDICAL EMERon 02-07-2022 MEDICAL SHERRILL HNO ID: [id number] Author: Max Nazario APRN.SHORE MAN Service: Neurology ICU Author Type: Nurse Practitioner Type: Chg in Clinical Condition Filed: 02/07/2022 5:04 PM Note Text: NSICU Patient with worsening NIHSS on exam- now 15 Bedside CUS showing occluded LICA Dr. Jones aware- going for stat CTH then plan to give asa/plavix and return to NIL. 1655- CTH reviewed with Dr. Jones- noted small petechial hemorrhage L hemisphere- OK to give asa/plavix. Max Nazario, ROLLER SETTER.SHORE MAN Normal [facility] Magnesium SerPl-mCncon 02-07 Magnesium [Mass/Vol] 1.9 mg/dL Normal 1.7-2.3 [facility] Comment on above: Order Comment: Speci men Type: BLOOD SPECIMENOrdering Facility: [facility] Address: [address] [place] [address] Performed By: #### 2 4323-8, 95061-8, 23991-1, 2776- ####[facility] LABORATORYCLIA [id number] [place] [address] [place] Phosphate SerPl-mCncon 02-07 Phosphate [Mass/Vol] 3.1 mg/dL Normal 2.7-4.8 [facility] Comment on above: Order Comment: Speci men Type: BLOOD SPECIMENOrdering Facility: [facility] Address: [address] [place] [address] Performed By: #### 2 4323-8, 21245-4, , 2776-05 ####[facility] LABORATORYCLIA [id number] [place] [address] [place] STAPH AUREUS PCRon 2 S. aureus and MRSA panel NICO+probe (Nose) Normal Negative [facility] Comment on above: Order Comment: Speci men Type: SWAB OF INTERNAL NOSEOrdering Facility: [facility] Address: [address] [place] [address] Result Comment: Nega tive for Staphylococcus aureus by PCR. Negative for MRSA by PCR Performed By: #### S APCR ####[facility] LABORATORYCLIA [id number] [place] [address] [place] S. aureus and MRSA panel NICO+probe (Nose) Normal Negative [facility] Comment on above: Order Comment: Speci men Type: SWAB OF INTERNAL NOSEOrdering Facility: [facility] Address: [address] [place] [address] Result Comment: Nega tive for Staphylococcus aureus by PCR. Negative for MRSA by PCR Performed By: #### S APCR ####[facility] LABORATORYCLIA [id number] [place] [id number] [place] THERAPY NTon 02-07-2022 THERAPY NT HNO ID: [id number] Author: Courtney Keller CCC-OBSTETRICS SCRUB NURSE Service: Speech/Swallow Author Type: Speech Language Pathologist Type: Therapy (PT/OT/Speech/Resp) Filed: 02/07/2022 11:40 AM Note Text: Speech Therapy Clinical Swallow Evaluation SERVICE DATE: 02/07/2022 SERVICE TIME: 1100 to 1120 ROOM: [place] [address] IMPRESSION: Swallow Deficits Identified / Suspected: Oropharyngeal dysphagia Diet Recommendations: Pureed IDDSI Level 4 Mildly Thick Liquids IDDSI Level 2 (Beemer Thick) Medications crushed in puree (pudding/applesauce) Swallowing Precautions Recommendations: Alert (patient should be fully alert for P.O. intake) Feed / Eat at a slow rate Extended time between presentations Small Bite/Sip Sit upright 90 degrees for all PO Supervision/Assistanc e for meals Nursing Recommendations: See swallow guide posted in patients room;Routine Rigid Oral Hygiene;Reinforce use of swallowing strategies;Use suction toothbrush with patient Instrumental Swallow Assessment Recommendations: Modified Barium Swallow Study (MBSS) Recommended Discharge Disposition: Acute Rehab Justification for Recommended Discharge Disposition: dysphagia requiring frequent assessment and diet modification;expressi ve language/communicatio n deficits;receptive language/communicatio n deficits Current Hospital Course: CT Brain 02-06:no acute intracranial pathology, XR Shoulder limited 2V AP/TRULE APLT-patient status post placement of reverse style left shoulder prosthesis Reason for Hospital Admission: Stroke after surgery Rehabilitation Precautions: Modified Diet;Aspiration Precautions;Dysphagia ;Cognitive Linguistics Deficits;Communicatio n Deficits Reason for Speech Therapy Consult: swallowing and speech evaluation Relevant Past Medical History: DM2, HTN Response to Therapy Interventions: Aspiration Risk, Aphasia, Good Participation in activities Continue skilled OBSTETRICS SCRUB NURSE services due to : Dysphagia Speech Therapy Problem List: Dysphagia Patient Report: States name Current Status Oral Hygiene: Clear, moist oral cavity;Oral Health Assessment Tool (OHAT) Dentition: Retains Natural Dentition;Miscellaneo us Missing Teeth Current Feeding Method: IV Current Diet Textures: NPO Current Level Of Communication: Aphasia;Verbal;[place] Current Management Of Secretions: Able to expectorate adequately Oral Motor Exam: Within Functional Limits Except Facial Symmetry Impaired: Right Labial Assessment: Poor labial seal Labial ROM Impaired: Right Labial Strength Impaired: Right Lingual ROM Impaired: Right Lingual Strength Impaired: Right Palatal Elevation: Within Functional Limits Oral Health Assessment Tool (OHAT) Lips: 1 Tongue: 1 Gums and Tissues: 1 Saliva: 1 Natural Teeth: 1 Dentures: N/A Oral Cleanliness: 1 Dental Pain: 0 OHAT Total Score: 6 Swallow Position Of Patient During Assessment: Upright In Bed Consistencies Presented: Thin Liquids IDDSI Level 0, Pureed IDDSI Level 4, Solid, Mildly Thick Liquids IDDSI Level 2 (Beemer Thick) Response to Consistencies Presented: coughing with thins, prolonged chewing, oral residue with solids Compensatory Strategies Utilized During Assessment: Alert (patient should be fully alert for P.O. intake), 1:1 Supervision, Feed / Eat at a slow rate, Extended time between presentations, Small Bite/Sip, Sit upright 90 degrees for all PO, Voice checks Clinical Swallow Oral Pharyngeal Swallow Assessment: Within Functional Limits Except Preparatory / Oral Phase: Within Functional Limits Except Bolus Awareness: Impaired Mastication: Suspect impairment Bolus Manipulation: Suspect impairment A-P Transit: Suspect impairment Oral Residue: Mildly Impaired (solids) Pharyngeal Phase: Within Functional Limits Except Initiation of Swallow: Suspect impairment Range of Hyoid/Laryngeal Elevation: Suspect impairment Reflexive Throat Clear and Cough after Swallowing: Yes, Post-Swallow (thins) Multiple Swallows: No, Post-Swallow Suspected Esophageal Deficits: none Patient awake and alert + aphasia Patient with +dysarthria Patient swallows trials of water with coughing and throat clearing Patient swallows nectar liquids without overt signs of aspiration Puree was swallowed without overt signs of aspiration Chewing was prolonged and results in oral residue Waxes and wanes Laryngeal movement was detected upon palpation of the larynx Recommend pureed and nectars at this time Also recommend a Modified Barium Swallow for instrumental swallowing testing Will follow for speech and swallowing management Patient /Caregiver Goals: Eat/Drink Without Restrictions Goals for Plan of Care: Goals: SWALLOWING: Patient / Caregiver will demonstrate knowledge of taught compensatory strategies and dietary consistency recommendations to optimize functional swallow function without overt clinical signs and symptoms of aspiration or dysphagia Swallow Goals: Patien (more content not included)... Normal [facility] TROPONIN Ton 02-07-2022 TROPONIN T <0.010 Normal 0-0.010 [facility] Comment on above: Performed By: #### L 301.0120, L100.0005 #### [facility] [address] [place] [address] US CAROTID BILon 02-07-2022 US CAROTID ALEC * * *Final Report* * * DATE OF EXAM: Feb 07 2022 4:34PM A2U 1077 - US CAROTID ALEC / PROCEDURE REASON: stoke' * * * * Physician Interpretation * * * * Non-Invasive Vascular Laboratory [facility] Carotid Duplex Bilateral/Complete Date of service/time: 02/07/2022 3:56:49 PM [facility] Name: MIRI CAI Date of : 1945 Age: 76 years Gender: M Medical History Tobacco: Former Myocardial infarction: Yes Stroke: Yes Hypertension: Yes Clinical Indication Cerebrovascular accident. TECHNIQUE -------- A carotid duplex ultrasound examination was performed, including grayscale imaging and color Doppler and spectral Doppler examination of the below mentioned arteries. FINDINGS -------- RIGHT SIDE Common carotid artery: Proximal: PSV: 143 cm/s. EDV: 35 cm/s. Mid: PSV: 138 cm/s. EDV: 39 cm/s. Distal: PSV: 127 cm/s. EDV: 37 cm/s. Internal carotid artery: Origin: PSV: 109 cm/s. EDV: 38 cm/s. Proximal: PSV: 100 cm/s. EDV: 27 cm/s. Mid: PSV: 109 cm/s. EDV: 33 cm/s. Distal: PSV: 103 cm/s. EDV: 34 cm/s. ICA/CCA Ratio: 0.9 External carotid artery: Proximal: PSV: 111 cm/s. EDV: 13 cm/s. Vertebral artery: Mid: PSV: 87 cm/s. EDV: 29 cm/s. LEFT SIDE Common carotid artery: Proximal: PSV: 115 cm/s. EDV: 10 cm/s. Mid: PSV: 102 cm/s. EDV: 10 cm/s. Distal: PSV: 90 cm/s. EDV: 12 cm/s. Internal carotid artery: Origin: PSV: 58 cm/s. EDV: 6 cm/s. Proximal: PSV: 0 cm/s. Mid: PSV: 0 cm/s. Distal: PSV: 0 cm/s. Occlusive homogeneous age indeterminate plaque throughout. ICA/CCA Ratio: 0.6 External carotid artery: Origin: PSV: 121 cm/s. EDV: 10 cm/s. Proximal: PSV: 142 cm/s. EDV: 19 cm/s. Mid: PSV: 121 cm/s. EDV: 10 cm/s. Vertebral artery: Mid: PSV: 38 cm/s. EDV: 12 cm/s. IMPRESSION Noni Rider notified of preliminary findings. RIGHT SIDE Common carotid artery: Patent. Internal carotid artery: 40-59% stenosis. Elevated velocities without evidence of plaque may be due to compensatory flow from left ICA occlusion. External carotid artery: Patent. Vertebral artery: Patent and antegrade flow noted. LEFT SIDE Common carotid artery: Patent. Internal carotid artery stent: Occluded. Stent noted throughout . External carotid artery: Patent. Vertebral artery: Patent and antegrade flow noted. Technologist: Hedy Masters T Ordering physician: ROBY ALEXANDER Interpreting physician: Anirudh Bryant MD Final RP Operations Recruiter: JAY Transcribe Date/Time: Feb 07 2022 3:56P Dictated by : ANIRUDH BRYANT MD This examination was interpreted and the report reviewed and electronically signed by: ANIRUDH BRYANT MD on Feb 08 2022 6:57AM EST [id number] [facility] Anion gap [Moles/Vol] 17.5 mmol/L Normal 15-22 [facility] Comment on above: Order Comment: Comme nt: PRE-OP Performed By: #### L 200.1602 #### [facility] - [facility] [address] [place] [address] 36753 Calcium [Mass/Vol] 9.9 mg/dL Normal 8.8-10.2 [facility] Comment on above: Order Comment: Comme nt: PRE-OP Performed By: #### L 200.1602 #### [facility] - [facility] [address] [place] [address] 39019 Chloride [Moles/Vol] 101 mmol/L Normal 98-107 [facility] Comment on above: Order Comment: Comme nt: PRE-OP Performed By: #### L 200.1602 #### [facility] - [facility] [address] [place] [address] 13289 CO2 [Moles/Vol] 25 mmol/L Normal 22-29 [facility] Comment on above: Order Comment: Comme nt: PRE-OP Performed By: #### L 200.1602 #### [facility] - [facility] [address] [place] [address] 11154 Creatinine [Mass/Vol] 0.99 mg/dL Normal 0.70-1.20 [facility] Comment on above: Order Comment: Comme nt: PRE-OP Performed By: #### L 200.1602 #### [facility] - [facility] [address] [place] [address] 26440 eGFR if AFR FAHAD > 60 ml/min/1.73m2 Normal [facility] Comment on above: Order Comment: Comme nt: PRE-OP Result Comment: eGFR >= 60 Indicates normal kidney function. * eGFR IS AN ESTIMATE * (AFR FAHAD = ) (non-AFR AM = NON-) MDRD calculation used in the eGFR should not be used to dose medications. For further limitations of the eGFR please refer to the Physician Website or the National Kidney Disease Education Program website (www.nkdep.nih.gov). Performed By: #### L 200.1602 #### [facility] - [facility] [address] [place] [address] 86279 eGFR nonAFR Fahad > 60 ml/Min/1.73m2 Normal [facility] Comment on above: Order Comment: Comme nt: PRE-OP Performed By: #### L 200.1602 #### [facility] - [facility] [address] [place] [address] 82021 Glucose [Mass/Vol] 114 mg/dL Normal 82-115 [facility] Comment on above: Order Comment: Comme nt: PRE-OP Performed By: #### L 200.1602 #### [facility] - [facility] [address] [place] [address] 26537 Potassium [Moles/Vol] 4.5 mmol/L Normal 3.5-5.0 [facility] Comment on above: Order Comment: Comme nt: PRE-OP Performed By: #### L 200.1602 #### [facility] [address] [place] [address] 86181 Sodium [Moles/Vol] 139 mmol/L Normal 135-145 [facility] Comment on above: Order Comment: Comme nt: PRE-OP Performed By: #### L 200.1602 #### [facility] [address] [place] [address] 56060 Urea nitrogen [Mass/Vol] 22 mg/dL Normal 8-23 [facility] Comment on above: Order Comment: Comme nt: PRE-OP Performed By: #### L 200.1602 #### [facility] [address] [place] [address] 16578 CBCon 02-06-2022 BASO# 0.00 x10(3) Normal 0.00-0.10 [facility] Comment on above: Performed By: #### L 200.0010 #### [facility] - [facility] [address] [place] [address] 87257 Basophils/100 WBC (Bld) 0.2 % Normal 0.0-1.0 [facility] Comment on above: Performed By: #### L 200.0010 #### [facility] [address] [place] [address] 61817 EOS# 0.00 x10(3) Normal 0.00-0.54 [facility] Comment on above: Performed By: #### L 200.0010 #### [facility] [address] [place] [address] 00121 Eosinophils/100 WBC (Bld) 0.0 % Low 0.5-4.9 [facility] Comment on above: Performed By: #### L 200.0010 #### [facility] [address] [place] [address] 54446 Erythrocyte distribution width (RBC) [Ratio] 15.0 % Normal 12.7-15.3 [facility] Comment on above: Performed By: #### L 200.0010 #### ML [facility] [address] [place] [address] 46831 Hematocrit (Bld) [Volume fraction] 40.1 % Low 42.0-51.0 [facility] Comment on above: Performed By: #### L 200.0010 #### [facility] [address] [place] [address] 41751 Hemoglobin (Bld) [Mass/Vol] 13.4 g/dL Low 14.0-17.2 [facility] Comment on above: Performed By: #### L 200.0010 #### [facility] [address] [place] [address] 04899 LYMPH# 0.50 x10(3) Low 1.00-3.50 [facility] Comment on above: Performed By: #### L 200.0010 #### [facility] [address] [place] [address] 79937 Lymphocytes/100 WBC (Bld) 6.2 % Low 16.0-48.0 [facility] Comment on above: Performed By: #### L 200.0010 #### ML [facility] [address] [place] [address] 26793 MCH (RBC) [Entitic mass] 31.1 pg Normal 28.8-32.2 [facility] Comment on above: Performed By: #### L 200.0010 #### ML [facility] [address] [place] [address] 90672 MCHC (RBC) [Mass/Vol] 33.4 g/dL Normal 33.0-36.0 [facility] Comment on above: Performed By: #### L 200.0010 #### [facility] [address] [place] [address] 94238 MCV (RBC) [Entitic vol] 93.1 fL Normal 80.0-94.0 [facility] Comment on above: Performed By: #### L 200.0010 #### ML [facility] [address] [place] [address] 16626 MONO# 0.80 x10(3) Normal 0.30-0.80 [facility] Comment on above: Performed By: #### L 200.0010 #### ML [facility] [address] [place] [address] 80300 Monocytes/100 WBC (Bld) 9.8 % Normal 4.3-11.2 [facility] Comment on above: Performed By: #### L 200.0010 #### ML [facility] [address] [place] [address] 50601 NEUT# 6.90 x10(3) High 1.40-6.50 [facility] Comment on above: Performed By: #### L 200.0010 #### ML [facility] [address] [place] [address] 80621 Neutrophils/100 WBC (Bld) 83.8 % High 45.0-73.0 [facility] Comment on above: Performed By: #### L 200.0010 #### [facility] [address] [place] [address] 74294 Platelet mean volume (Bld) [Entitic vol] 8.1 fL Normal 7.4-9.2 [facility] Comment on above: Performed By: #### L 200.0010 #### ML [facility] [address] [place] [address] 17784 PLT 197 X10(3) Normal 150-450 [facility] Comment on above: Performed By: #### L 200.0010 #### [facility] [address] [place] [address] 74114 RBC 4.31 x10(6) Low 4.80-5.50 [facility] Comment on above: Performed By: #### L 200.0010 #### [facility] - [facility] [address] [place] [address] 23720 WBC 8.2 x10(3) Normal 4.5-10.0 [facility] Comment on above: Performed By: #### L 200.0010 #### [facility] [address] [place] [address] 22871 BASO# 0.00 x10(3) Normal 0.00-0.10 [facility] Comment on above: Order Comment: Comme nt: PRE-OP Performed By: #### L 200.1602 #### [facility] [address] [place] [address] 97339 Basophils/100 WBC (Bld) 0.3 % Normal 0.0-1.0 [facility] Comment on above: Order Comment: Comme nt: PRE-OP Performed By: #### L 200.1602 #### [facility] [address] [place] [address] 83926 EOS# 0.00 x10(3) Normal 0.00-0.54 [facility] Comment on above: Order Comment: Comme nt: PRE-OP Performed By: #### L 200.1602 #### [facility] [address] [place] [address] 88085 Eosinophils/100 WBC (Bld) 0.5 % Normal 0.5-4.9 [facility] Comment on above: Order Comment: Comme nt: PRE-OP Performed By: #### L 200.1602 #### [facility] [address] [place] [address] 03275 Erythrocyte distribution width (RBC) [Ratio] 15.0 % Normal 12.7-15.3 [facility] Comment on above: Order Comment: Comme nt: PRE-OP Performed By: #### L 200.1602 #### [facility] [address] [place] [address] 00657 Hematocrit (Bld) [Volume fraction] 43.5 % Normal 42.0-51.0 [facility] Comment on above: Order Comment: Comme nt: PRE-OP Performed By: #### L 200.1602 #### [facility] [address] [place] [address] 73046 Hemoglobin (Bld) [Mass/Vol] 14.3 g/dL Normal 14.0-17.2 [facility] Comment on above: Order Comment: Comme nt: PRE-OP Performed By: #### L 200.1602 #### [facility] [address] [place] [address] 80078 LYMPH# 0.80 x10(3) Low 1.00-3.50 [facility] Comment on above: Order Comment: Comme nt: PRE-OP Performed By: #### L 200.1602 #### [facility] [address] [place] [address] 51127 Lymphocytes/100 WBC (Bld) 15.8 % Low 16.0-48.0 [facility] Comment on above: Order Comment: Comme nt: PRE-OP Performed By: #### L 200.1602 #### [facility] [address] [place] [address] 77883 MCH (RBC) [Entitic mass] 30.7 pg Normal 28.8-32.2 [facility] Comment on above: Order Comment: Comme nt: PRE-OP Performed By: #### L 200.1602 #### [facility] - [facility] [address] [place] [address] 37257 MCHC (RBC) [Mass/Vol] 32.8 g/dL Low 33.0-36.0 [facility] Comment on above: Order Comment: Comme nt: PRE-OP Performed By: #### L 200.1602 #### [facility] - [facility] [address] [place] [address] 27697 MCV (RBC) [Entitic vol] 93.4 fL Normal 80.0-94.0 [facility] Comment on above: Order Comment: Comme nt: PRE-OP Performed By: #### L 200.1602 #### [facility] [address] [place] [address] 44852 MONO# 0.50 x10(3) Normal 0.30-0.80 [facility] Comment on above: Order Comment: Comme nt: PRE-OP Performed By: #### L 200.1602 #### [facility] [address] [place] [address] 07437 Monocytes/100 WBC (Bld) 10.4 % Normal 4.3-11.2 [facility] Comment on above: Order Comment: Comme nt: PRE-OP Performed By: #### L 200.1602 #### [facility] [address] [place] [address] 54491 NEUT# 3.80 x10(3) Normal 1.40-6.50 [facility] Comment on above: Order Comment: Comme nt: PRE-OP Performed By: #### L 200.1602 #### [facility] [address] [place] [address] 30459 Neutrophils/100 WBC (Bld) 73.0 % Normal 45.0-73.0 [facility] Comment on above: Order Comment: Comme nt: PRE-OP Performed By: #### L 200.1602 #### [facility] [address] [place] [address] 20897 Platelet mean volume (Bld) [Entitic vol] 7.8 fL Normal 7.4-9.2 [facility] Comment on above: Order Comment: Comme nt: PRE-OP Performed By: #### L 200.1602 #### [facility] [address] [place] [address] 34629 PLT 205 X10(3) Normal 150-450 [facility] Comment on above: Order Comment: Comme nt: PRE-OP Performed By: #### L 200.1602 #### [facility] [address] [place] [address] 28594 RBC 4.65 x10(6) Low 4.80-5.50 [facility] Comment on above: Order Comment: Comme nt: PRE-OP Performed By: #### L 200.1602 #### [facility] - [facility] [place] [address] WBC 5.3 x10(3) Normal 4.5-10.0 [facility] Comment on above: Order Comment: Breanna nt: PRE-OP Performed By: #### L 200.1602 #### [facility] [address] [place] [address] ANGIO HEAD W/WO CONTRASTo n 02-06-2022 CT ANGIO HEAD W/WO CONTRAST [address] [address] Name: MIRI CAI Phys: KINJAL ORTEZ M.D. : [birth year] Age: 76 Sex: M Acct: [id number] Loc: [facility] Exam Date: 02/06/22 Status: [facility] Radiology No.: Unit Number: [id number] Exam # Type/Exam [id number] CT / CT ANGIO HEAD W/WO CONTRAST EXAMINATION: CTA OF THE HEAD WITHOUT AND WITH CONTRAST02/07/2022 1:00 pm CTA HEAD/BRAIN WITH AND WITHOUT CONTRAST TECHNIQUE: CTA of the head/brain was performed without and with the administration of intravenous contrast. Multiplanar reformatted images are provided for review. MIP images are provided for review. Automated exposure control, iterative reconstruction, and/or weight based adjustment of the mA/kV was utilized to reduce the radiation dose to as low as reasonably achievable. Nonionic intravenous contrast material was administered and images were obtained through the head per standard CTA protocol. Multiplanar reformatted and three dimensional volume rendered images were generated on an independent workstation. This exam was performed according to our departmental dose optimization program, and includes the following measures where applicable: automated exposure control, adjustment of the mAs and/or kVp according to patient size and/or exam, and an iterative reconstruction algorithm. COMPARISON: None. HISTORY: ORDERING SYSTEM PROVIDED HISTORY: TECHNOLOGIST PROVIDED HISTORY: Reason for Exam: right sided paralysis FINDINGS: The left distal cervical, petrous and cavernous internal carotid artery demonstrates no definite enhancement. The left middle cerebral artery is completely or nearly completely occluded. Left anterior cerebral artery is patent. The right intracranial internal carotid artery, middle cerebral artery and anterior cerebral arteries are patent. Basilar artery, vertebral arteries and posterior cerebral arteries are patent, there is persistent origin of the right posterior cerebral artery. The vertebral arteries are patent, and codominant. The basilar artery and origins of the posterior inferior cerebellar arteries, anterior inferior cerebellar arteries, and superior cerebellar arteries are normal. No saccular aneurysm, proximal arterial cutoff, intra-arterial clot, or hemodynamically significant intracranial arterial stenosis is demonstrated. While the study was optimized for arterial evaluation, the dural venous sinuses demonstrates no evidence of thrombosis. 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 Electronically signed By Odalys Yuan MD 02/07/2022 1:15:50 PM EST Workstation ID : [id number] < > Reported By: ODALYS YUAN M.D. Signed In Fluency By: ODALYS YUAN M.D. << Signature on File>> Reported By: ODALYS YUAN M.D. Signed By: ODALYS YUAN M.D. Tests performed at: [place] [address] [facility] [address] ANGIO NECK W/WO CONTRASTo n 02-06-2022 CT ANGIO NECK W/WO CONTRAST [address] [address] Name: MIRI CAI Phys: KINJAL ORTEZ M.D. : 43 Age: 76 Sex: M Acct: [id number] Loc: [facility] Exam Date: 02/06/22 Status: [facility] Radiology No.: Unit Number: [id number] Exam # Type/Exam [id number] CT / CT ANGIO NECK W/WO CONTRAST EXAMINATION: CTA OF THE NECK WITH AND WITHOUT CONTRAST /3D02/07/2022 1:00 pm CTA NECK W AND WO CONTRAST 3D TECHNIQUE: CTA of the neck was performed with the administration of intravenous contrast. Multiplanar reformatted images are provided for review. MIP images are provided for review. Stenosis of the internal carotid arteries measured using NASCET criteria. Automated exposure control, iterative reconstruction, and/or weight based adjustment of the mA/kV was utilized to reduce the radiation dose to as low as reasonably achievable. Nonionic intravenous contrast material was administered and axial images were obtained through the neck per standard CTA protocol. Multiplanar reformatted and shaded-surface display and three dimensional volume rendered images were generated. Where applicable, evaluation of ICA stenosis was performed using the site of greatest stenosis is compared to the diameter of the ICA distal to the stenosis at a point where the ICA gambino become parallel. This exam was performed according to our departmental dose optimization program, and includes the following measures where applicable: automated exposure control, adjustment of the mAs and/or kVp according to patient size and/or exam, and an iterative reconstruction algorithm. COMPARISON: None. HISTORY: ORDERING SYSTEM PROVIDED HISTORY: TECHNOLOGIST PROVIDED HISTORY: Reason for Exam: right sided paralysis FINDINGS: The imaged aortic arch is normal. The origins of the innominate, bilateral common carotid, bilateral subclavian, and bilateral vertebral arteries demonstrate no significant stenosis. The left internal carotid artery is occluded 1.6 cm distal to its origin secondary to irregular calcified and noncalcified plaque. The left internal carotid artery is patent. The right internal and external carotid arteries are patent and normal in caliber with only minimal atherosclerotic disease. The cervical vertebral arteries are patent and codominant. There is no evidence of arterial dissection, occlusion, extravasation of contrast material, arteriovenous fistula, or pseudoaneurysm. 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 Electronically signed By Odalys Yuan MD 02/07/2022 1:12:37 PM EST Workstation ID : [id number] < > Reported By: ODALYS YUAN M.D. Signed In Fluency By: ODALYS YUAN M.D. << Signature on File>> Reported By: ODALYS YUAN M.D. Signed By: ODALYS YUAN M.D. Tests performed at: [address] [address] [facility] [address] BRAIN WITHOUT CONTRAST- C TBon 02-06-2022 CT BRAIN WITHOUT CONTRAST- CTB [address] [address] Name: MIRI CAI Phys: KINJAL ORTEZ M.D. : 43 Age: 76 Sex: M Acct: [id number] Loc: [facility] Exam Date: 02/06/22 Status: REG [facility] Radiology No.: Unit Number: [id number] Exam # Type/Exam [id number] CT / CT BRAIN WITHOUT CONTRAST- CTB EXAMINATION: CT OF THE HEAD WITHOUT CONTRAST02/06/2022 8:[address] HEAD/BRAIN WITHOUT CONTRAST EXAM DESCRIPTION: TECHNIQUE: CT of the head was performed without the administration of intravenous contrast. Automated exposure control, iterative reconstruction, and/or weight based adjustment of the mA/kV was utilized to reduce the radiation dose to as low as reasonably achievable. COMPARISON: None available. HISTORY: ORDERING SYSTEM PROVIDED HISTORY: TECHNOLOGIST PROVIDED HISTORY: Reason for Exam: STROKE FINDINGS: The size, density, and morphology of the brain and CSF containing spaces appears normal. There is no evidence of mass, midline shift, hemorrhage, or infract. The ventricles, cortical sulci, and subarachnoid cisterns appear unremarkable. There are no extra-axial fluid collections. No regions of pathologic attenuation are evident. Regions of the orbits and paranasal sinuses included within the field of view are unremarkable. There is no displaced fracture or osseous neoplasm. The extracalvarial soft tissues appear unremarkable. IMPRESSION: No acute intracranial pathology. COMMENT: Changes resultant from ischemia (even significant ischemia) may often be inapparent on CT exam, particularly if imaged early. Additionally, early changes due to neoplastic or inflammatory processes can be subtle to the extent that they are not prospectively noted. Therefore, if symptoms persist, or clinical suspicion for pathology remains, further evaluation may be obtained with MRI. Electronically signed By An Ann MD 02/06/2022 10:31:18 PM EST Workstation ID : [id number] < > Reported By: AN ANN M.D. Signed In Fluency By: AN ANN M.D. << Signature on File>> Reported By: AN ANN M.D. Signed By: AN ANN M.D. Tests performed at: [place] [id number] [place], [place] [address] [facility] ELECTROCARDIOGRAMon 02-07-20 22 [place] [address] [facility] ELECTROCARDIOGRAM REPORT Patient: MIRI CAI Ordering: CARSON BULLOCK III, D.O. [id number] M Exam Date: 02/06/22 Report #: [id number] Status: DEP [facility] AMB Test Reason : Blood Pressure : / mmHG Vent. Rate : 091 BPM Atrial Rate : 273 BPM P-R Int : 000 ms QRS Dur : 100 ms QT Int : 376 ms P-R-T Axes : 250 -15 052 degrees QTc Int : 462 ms Atrial flutter with 3:1 AV conduction Left axis deviation Abnormal ECG When compared with ECG of 24-JAN-2022 10:23, No significant change was found Confirmed by JIM BEE MD ([id number]) on 02/07/2022 2:10:01 PM Referred By: Confirmed By:JIM BEE MD Signed in MUSE 02/07/22 1410 JIM BEE M.D. cc: << Signature on File>> Reported By: JIM BEE M.D. Signed By: JIM BEE M.D. Tests performed at: [place] [id number] [facility] OPERATIVE [place] [address] [facility]FORMATION [facility]NAGEMENT OPERATIVE REPORT Patient: MIRI CAI ARA JIMENEZ,CARSON Bains D.O. [id number] M Status: [facility] DATE OF SURGERY: 02/06/2022 SURGEON: Carson Bullock III, DO PREOPERATIVE DIAGNOSES: 1. Left shoulder severe rotator cuff arthropathy. 2. 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 3. Left shoulder glenoid dysplasia. POSTOP DIAGNOSES: 1. Left shoulder severe rotator cuff arthropathy. 2. 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 3. Left shoulder glenoid dysplasia. PROCEDURE: 1. Left reverse total shoulder arthroplasty, CPT code 27318. 2. Left shoulder open long head of biceps tenodesis, CPT code 64000. DISTILLATION OPERATOR HELPER: Belkis Nam PA-C. ANESTHESIA: General endotracheal intubation plus interscalene block. ESTIMATED BLOOD LOSS: 100 mL. FLUIDS: 1300 mL of normal saline. COMPLICATIONS: None. IMPLANT: Reverse total shoulder by Stewartnier: 1. Perform Reversed Augmented Glenoid 29 mm diameter, full wedge. 2. Perform Reverse Glenosphere 39 mm diameter, centered. 3. Tornier Flex humeral stem size 3B. 4. Tornier Flex high eccentricity +0 reverse tray. 5. Tornier 29 mm diameter, +6 mm polyethylene reverse bearing. INDICATION FOR PROCEDURE: The patient is a pleasant 76-year-old male who presented to my office with severe bilateral shoulder pain. This patient has had pain for the last several years. X-rays were taken in our office that revealed end-stage osteoarthritis with severe glenoid retroversion. A CT was obtained in the preoperative period and [employer] software was used for templating purposes. The patient had glenoid retroversion of 19 degrees and superior inclination of the glenoid at 5 degrees. A full wedge augmented base plate was planned for this patient to restore the glenoid dysplasia. The patient was counseled on the risks and benefits of the procedure. Standard medical clearance was obtained. He wished to proceed and signed a formal surgical consent. A patient specific guide was ordered to aid in reconstructing the glenoid during the surgical case. PROCEDURE IN DETAIL: The patient was seen in the preop holding area. Any and all final questions were answered for the patient. The correct operative site was marked with the aid of the patient. The entire OR team paused for formal huddle. The patient was then taken to PACU and given an interscalene block per the Anesthesia team. He was then taken the OR, placed supine on the operating table, and underwent endotracheal intubation without complication. He was sat in the beach chair position with all bony prominences well padded. The neck was assessed to make sure there was no traction on the brachial plexus. The left shoulder was then prepped and draped in a standard fashion for an open procedure and the entire OR team paused for a formal time out. During this case, I used the assistance of Belkis Nam PA-C was instrumental in safety and efficiency of the case. Belkis helped with patient positioning, retraction during surgical exposure, aid with resection of the long head of the biceps tendon and reconstruction, assistance with humeral head and glenoid preparation, implantation of final reverse total shoulder components, wound closure, and dressing application. LONG HEAD OF BICEPS TENODESIS: I turned my attention to the left shoulder. I made a standard anterior incision from the tip of the coracoid to the proximal humeral metaphysis. The skin was incised. Meticulous hemostasis was maintained. Full-thickness medial and lateral skin flaps were developed and the deltopectoral interval was identified. The cephalic vein was identified and carefully released with a pair of Metzenbaum scissors. The deltopectoral interval was opened and the subdeltoid recess was developed. The Hill deltoid retractor was positioned for better exposure. The subconjoined tendon area was opened and a blunt Hohmann was placed around the humeral neck. The anterior circumflex vessels were then coagulated. The biceps tendon was found within the bicipital groove. The bicipital groove area was enlarged with significant inflammation and synovial fluid. The tendon sheath was opened and the long head of biceps tendon was placed on appropriate tension. A heavy 0 Vicryl stitch was used to place multiple tacking stitches for sturdy tenodesis of the long head of the biceps tendon to the pectoralis major tendon. This was an in situ tenodesis at the pectoralis major insertion on the humerus. The proximal biceps tendon stump was then truncated and removed from the bicipital groove without complication. Range of motion and soft tissue tensioning was optimal on our tenodesis site. REVERSE TOTAL SHOULDER: At this point in time, we turned our attention to the subscapularis. A subscapular tenotomy was performed on this patient and t (more content not included)... [facility] PTon 02-06-2022 INR Coag (PPP) [Relative time] 1.0 {INR} [facility].1 [facility] Comment on above: Order Comment: Comme nt: PRE-OP Result Comment: CO UMADIN PROTOCOLS INR values are generated for use in patients on coumadin. INR values stabilize 7 days after the start of coumadin or changes in coumadin dosage. The usual TARGET/INR range is: INDICATION INR RANGE Prophylaxis/treatment of: Venous Thrombosis, Pulmonary Embolism 2.0-3.0 Prevention of systemic embolism from: Tissue heart valves 2.0-3.0 Acute myocardial infarction (to prevent systemic embolism) 2.0-3.0 AMI (to prevent recurrent PA) 2.5-3.5 Valvular heart disease 2.0-3.0 Atrial fibrillation 2.0-3.0 Mechanical prosthetic valves (high risk) 2.5-3.5 Bileaflet mechanical valve in aortic position 2.0-3.0 Presence of Lupus Anticoagulant or Antiphospholipid Antibodies 2.5-3.5 PANIC VALUE: GREATER THAN OR EQUAL TO 4.5 Performed By: #### L 200.1602 #### [facility] [address] [place] [address] PT Coag (PPP) [Time] 11.6 s Normal 9.4-12.5 [facility] Comment on above: Order Comment: Comme nt: PRE-OP Performed By: #### L 200.1602 #### [facility] - [facility] [address] [place] [address] SHOULDER MIN 2 VIEWon 2021 SHOULDER MIN [address] [address] Name: MIRI CAI Phys: BELKIS NAM PA-C : 43 Age: 76 Sex: M Acct: [id number] Loc: [facility] Exam Date: 02/06/22 Status: REG [facility] Radiology No.: Unit Number: [id number] Exam # Type/Exam [id number] RAD / SHOULDER MIN 2 VIEW LT EXAMINATION: 2 XRAY VIEWS OF THE LEFT SHOULDER 02/06/2022 2:40 pm COMPARISON: 12/17/2021 HISTORY: ORDERING SYSTEM PROVIDED HISTORY: TECHNOLOGIST PROVIDED HISTORY: Reason for Exam: STATUS POST TOTAL SHOULDER FINDINGS: New reverse style left humeral head prosthesis identified. There is subcutaneous emphysema at the surgical site. There is appropriate alignment of the prosthesis. Left lung remains clear. IMPRESSION: Patient status post placement of reverse style left shoulder prosthesis Electronically signed By Vijay Sung DO 02/06/2022 3:50:03 PM EST Workstation ID : [id number] < > Reported By: VIJAY SUNG D.O. Signed In Fluency By: VIJAY SUNG D.O. << Signature on File>> Reported By: VIJAY SUNG D.O. Signed By: VIJAY SUNG D.O. Tests performed at: [address] [address] [facility] Covid-19on 02-04-2022 SARS-CoV-2 (COVID-19) RNA NICO+probe Ql (Unsp spec) See Below Normal Not Detected [facility] Comment on above: Result Comment: COVI D 19 RESULT SARS-CoV-2 (Agent of COVID-19) Not Detected by RT-PCR or equivalent method. This test was developed and its performance characteristics determined by [facility] [place]. This test has been authorized by FDA under an Emergency Use Authorization (EUA). This test has been validated in accordance with the FDA's Guidance Document Policy for Diagnostics Testing in Laboratories Certified to Perform High Complexity Testing under CLIA prior to Emergency use Authorization for Coronavirus Disease 2019 during the Public Health Emergency issued on July 10, 2019. Test performed by [facility], [facility] [place], [address] [place] [address]. SOURCE: NASOPHARYNGEAL Test Performed By: [place] [address] Turntable Worker: Robin Delgado III, M.D. SARS-CoV-2 RNA Resp Ql NICO+p karthik 02-03-2022 SARS-CoV-2 (COVID-19) RNA NICO+probe Ql (Resp) SARS-CoV-2 (Agent of COVID-19) Not Detected by RT-PCR or equivalent method. Normal Not Detected [facility] Comment on above: Order Comment: Speci men Type: SWAB OF INTERNAL NOSEOrdering Facility: [facility] Address: [address] [place] [address] Result Comment: This test was developed and its performance characteristics determined by [facility] [place]. This test has been authorized by FDA under an Emergency Use Authorization (EUA). This test has been validated in accordance with the FDA's Guidance Document Policy for Diagnostics Testing in Laboratories Certified to Perform High Complexity Testing under CLIA prior to Emergency use Authorization for Coronavirus Disease 2019 during the Public Health Emergency issued on July 10, 2019. Test performed by [facility], [facility] [place], [address] [place] [address]. Performed By: #### 9 [id number] ####[facility] [id number] SADA [facility] [id number], [place] [address] [place] TYPE AND SCREENon 02-03-2022 AB SCRN Negative [facility] Comment on above: Performed By: #### B 100.0700 #### [facility] - LABORATORY [address] [place] [address] BLD TYPE Positive [facility] Comment on above: Performed By: #### B 100.0700 #### [facility] - [facility] [address] [place] [address] CNOVon 01-31-2022 CNOV Office Visit (ORUPDO ) MIRI CAI ([id number]) 1945 M Date Time Provider Department 01/31/22 10:45 AM CARSON BULLOCK III During your visit today, we recorded the following information about you: Pulse Blood pressure Weight Height 84/minute 153/79 83.2 kg 1.778 m Carson Bullock III, DO 01/31/2022 12:41 PM Signed HISTORY AND PHYSICAL Date of Surgery: 02/06/2022 Brief History: The patient is a pleasant 76 year old male who presents to the office with bilateral shoulder pain. The patient reports ongoing left shoulder pain for several years. He describes constant moderate pain, loss of motion, clicking, weakness, grinding, and locking. He notes discomfort with overhead activities and at night. He states his shoulder are currently functioning at 40% of normal. He is unable to wash his back. He notes significant difficulty with tilting, lifting 10 pounds above his shoulder, and throwing a ball overhand. He has moderate difficulty with putting on a coat, sleeping on either side, and reaching a high shelf. I have personally reviewed prior documentation and X-rays. The patient states that his quality of life is not currently acceptable given the left shoulder function. The patient is now ready to consider surgical intervention. The patient presents for discussion to determine if he is a good surgical candidate. Patient Risk Factors: See below Kerri Benoit, transcribing for Dr. Carson Bullock III, DYarelis PAIN EVALUATION 01/31/2022 1052 Pain Level: 4 Pain Location: Shoulder-Left Description: Aching ORTHOPAEDIC HISTORY REVIEW: Previous injury to shoulder: Denies Current injury to shoulder: Denies Conservative Therapy: Present, rest, observation, activity modification NSAID Therapy: Denies Physical Therapy: Denies Injections: Denies Previous Imaging: Yes, X-rays in office Previous shoulder surgeries: Denies Employment: The patient is retired. Their shoulder pain is not a work related injury. Night Pain or Difficulty Sleeping: Denies Patient Risk Factors: Diabetes mellitus (HCC) and Essential hypertension; Lyme Disease ALLERGIES No Known Allergies Current Outpatient Medications Medication Sig Dispense Refill ELIQUIS 5 mg tab(s) Take 5 mg by mouth twice daily. Ascorbic Acid 1,000 mg TbER Take by mouth. cholecalciferol (VITAMIN D3) 1,000 unit tab tablet Take by mouth. metoprolol succinate ER (TOPROL XL) 50 mg 24 hr tablet Take 50 mg by mouth. No current facility-administered medications for this visit. PAST MEDICAL HISTORY Diagnosis Date Arrhythmia Diabetes mellitus (HCC) Essential hypertension PAST SURGICAL HISTORY Procedure Laterality Date NON-[facility]AN[facility] 10/2021 REMV CATARACT EXTRACAP,INSERT LENS Bilateral 06/2021 REPAIR INCISIONAL HERNIA,REDUCIBLE 2008 Ht 5' 10 (1.78m) Wt 183 lb 8 oz (83.2kg) BMI 26.33 kg/(m2). Review of Systems Constitutional: Negative. HENT: Negative. Respiratory: Negative. Cardiovascular: Negative. Gastrointestinal: Negative. Endocrine: Negative. Skin: Negative. Wound on the top of the head due to skin cancer Neurological: Negative. Hematological: Negative. Musculoskeletal: Negative. Positive for left shoulder pain Left Shoulder Exam Tenderness The patient is experiencing tenderness in the biceps tendon (Greater Tuberosity). Range of Motion Active abduction: 80 abnormal Passive abduction: 80 abnormal Extension: 30 abnormal External rotation: 30 abnormal Forward flexion: 150 abnormal Internal rotation 0 degrees: Sacrum abnormal Internal rotation 90 degrees: 40 abnormal Muscle Strength Abduction: 4/5 Internal rotation: 4/5 External rotation: 3/5 Supraspinatus: 4/5 Subscapularis: 4/5 Biceps: 4/5 Tests Samson test: positive Impingement: positive Drop arm: positive Other Erythema: absent Scars: absent Sensation: normal Pulse: present DIAGNOSTIC STUDIES: Previous xrays were reviewed with the patient in great detail. These xrays demonstrate erosion of the glenoid. There is severe arthritis of the glenohumeral joint. The AC joint has age appropriate arthrosis. On the scapular Y view there is a Type II acromion. On the axillary view the glenoid vault has severe glenoid retroversion. There are no acute injuries or fractures. Close inspection of the bone shows no obvious lesions. The density in quality of the bone is appropriate given their age. Procedures Encounter Diagnosis ICD-10-CM 1. 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 PLAN: MEDICAL DECISION MAKING: Moderate (Major Surgery) TIME: I spent a total of 35 minutes on the date of the service which included preparing to see the patient, [id number] patient care, completing clinical documentation, obtaining and/or reviewing separately obtained history, perfor (more content not included)... Normal [facility] So 01-31-2022 JENNIFERN Telephone (ORUPDO) MIRI CAI ([id number]) 1945 M Date Time Provider Department 01/31/22 CARSON BULLOCK III During your visit today, we recorded the following information about you: Ellen Davila RN 01/31/2022 11:20 AM Signed Patient presented for a pre-op visit today to discuss his upcoming left RTSA scheduled for 02/06/2022. I instructed him to stop taking his Eliquis on 02/03/2022. All other regularly scheduled medications he is permitted to take the morning of surgery with a small sip of water only and no coffee or juice. I instructed him not to eat or drink anything after midnight on 02/06/2022. He verbalized understanding. I reminded him to please complete the covid swab and type/screen on 02/03/2022. CBC, BMP, Chest Xray and EKG have been completed. All pre-testing results and requested clearances (Cardiology, Infectious Disease and Dr. Brooks) were placed in the chart for the provider to review with the patient today. Hibiclens soap was provided to the patient and he voiced understanding on when he is supposed to use it. He stated his home is set up appropriately for the post-op period. His 2-week postop office visit was set up for 02/21/2022 and a reminder card was provided. Per Deloris at [facility] surgery scheduling- he is to arrive at 9:00 a.m. as he is using public trransportation. Informed Consent was placed in the chart for the provider to review and sign with the patient. All other questions were answered. I instructed them to call in with any concerns/questions. Ellen Davila RN Allergies As of Date: 01/31/2022 (No Known Allergies) Date Reviewed: 01/31/2022 Reviewed by: Ellen Davila RN - Fully Assessed Reason for Visit: Physician Review Appointment [Other] Prescriptions as of 01/31/2022 - ELIQUIS 5 mg tab(s) Take 5 mg by mouth twice daily. - Ascorbic Acid 1,000 mg TbER Take by mouth. - cholecalciferol (VITAMIN D3) 1,000 unit tab tablet Take by mouth. - metoprolol succinate ER (TOPROL XL) 50 mg 24 hr tablet Take 50 mg by mouth. Problem List As Of Date: 01/31/2022 (None) Encounter Status:Closed by ELLEN DAVILA on 01/31/22 Normal [facility] [id number] 01-31-2022 HbA1c (Bld) [Mass fraction] 6.3 % High 4.8-5.6 [facility] Comment on above: Result Comment: Pred iabetes: 5.7 - 6.4 Diabetes: >6.4 Glycemic control for adults with diabetes: <7.0 Performed at: [address] [id number] Vendor Management Consultant: Josh Cee PhD, Phone: [phone] Performed By: #### L 800.1570 #### [place] [address] So 01-28-2022 ANAIS Telephone (ORUPDO) MIRI CAI ([id number]) 1945 M Date Time Provider Department 01/28/22 CARSON BULLOCK III During your visit today, we recorded the following information about you: Hannah Pavon 01/28/2022 10:08 AM Signed Patient called in to notify his phone is now working. He is concerned about the order of insurance on his lab orders. He wanted to make sure we have Medicare as primary and [employer] as secondary. I told him that is the order they are listed in his chart. Patient states he stopped in to the office last week and was told we had all his clearances for surgery. I explained we are waiting on clearances from his PCP and his shadow graph weight operator. He states he was scheduled to see his PCP but cancelled it this morning since he was told we had his clearances. He will call back to reschedule his appointment with his PCP. Advised patient to call his shadow graph weight operator for clearance appointment since his phone was out and they could not call him to schedule. Hannah Bullock III, DO 01/29/2022 8:57 AM Signed Thanks for the update. Carson Bullock III, DO Allergies As of Date: 01/28/2022 (No Known Allergies) Date Reviewed: 12/25/2021 Reviewed by: Renee Mullins - Fully Assessed Reason for Visit: Preparations For Surgery [898] Prescriptions as of 01/29/2022 - ELIQUIS 5 mg tab(s) Take 5 mg by mouth twice daily. - Ascorbic Acid 1,000 mg TbER Take by mouth. - cholecalciferol (VITAMIN D3) 1,000 unit tab tablet Take by mouth. - metoprolol succinate ER (TOPROL XL) 50 mg 24 hr tablet Take 50 mg by mouth. Problem List As Of Date: 01/28/2022 (None) Encounter Status:Closed by HANNAH PAVON on 01/29/22 Normal [facility] 01-24-2022 Anion gap [Moles/Vol] 17.4 mmol/L Normal 15-22 [facility] Comment on above: Performed By: #### L 100.0010 #### [facility] - LABORATORY [address] [place] [address] Calcium [Mass/Vol] 9.9 mg/dL Normal 8.8-10.2 [facility] Comment on above: Performed By: #### L 100.0010 #### [facility] - LAB[facility]ATORY [address] [place] [address] Chloride [Moles/Vol] 100 mmol/L Normal 98-107 [facility] Comment on above: Performed By: #### L 100.0010 #### [facility] - LABORATORY [address] [place] [address]4021 CO2 [Moles/Vol] 25 mmol/L Normal 22-29 [facility] Comment on above: Performed By: #### L 100.0010 #### ML [facility] [address] [place] [address]88 Creatinine [Mass/Vol] 0.87 mg/dL Normal 0.70-1.20 [facility] Comment on above: Performed By: #### L 100.0010 #### ML - LABORATORY [address] [place] [address] 16068 eGFR if AFR FAHAD > 60 ml/min/1.73m2 Normal [facility] Comment on above: Result Comment: eGFR >= 60 Indicates normal kidney function. * eGFR IS AN ESTIMATE * (AFR FAHAD = ) (non-AFR AM = NON-) MDRD calculation used in the eGFR should not be used to dose medications. For further limitations of the eGFR please refer to the Physician Website or the National Kidney Disease Education Program website (www.nkdep.nih.gov). Performed By: #### L 100.0010 #### [facility] - LAB[facility]ATORY [address] [place] [address]9940 eGFR nonAFR Fahad > 60 ml/Min/1.73m2 Normal [facility] Comment on above: Performed By: #### L 100.0010 #### [facility] - LABORATORY [address] [place] [address] 59189 Glucose [Mass/Vol] 108 mg/dL Normal 82-115 [facility] Comment on above: Performed By: #### L 100.0010 #### ML [facility] [address] [place] [address] 92522 Potassium [Moles/Vol] 4.4 mmol/L Normal 3.5-5.0 [facility] Comment on above: Performed By: #### L 100.0010 #### ML [facility] [address] [place] [address]903 Sodium [Moles/Vol] 138 mmol/L Normal 135-145 [facility] Comment on above: Performed By: #### L 100.0010 #### [facility] [address] [place] [address] 36296 Urea nitrogen [Mass/Vol] 22 mg/dL Normal 8-23 [facility] Comment on above: Performed By: #### L 100.0010 #### ML [facility] [address] [place] [address] 00163 CBCon 01-24-2022 BASO# 0.00 x10(3) Normal 0.00-0.10 [facility] Comment on above: Performed By: #### L 200.0010 #### ML [facility] [address] [place] [address] 74557 Basophils/100 WBC (Bld) 0.3 % Normal 0.0-1.0 [facility] Comment on above: Performed By: #### L 200.0010 #### ML [facility] [address] [place] [address] 73225 EOS# 0.00 x10(3) Normal 0.00-0.54 [facility] Comment on above: Performed By: #### L 200.0010 #### ML [facility] [address] [place] [address] 08719 Eosinophils/100 WBC (Bld) 0.5 % Normal 0.5-4.9 [facility] Comment on above: Performed By: #### L 200.0010 #### ML [facility] [address] [place] [address] 91460 Erythrocyte distribution width (RBC) [Ratio] 15.5 % High 12.7-15.3 [facility] Comment on above: Performed By: #### L 200.0010 #### ML [facility] [address] [place] [address] 23199 Hematocrit (Bld) [Volume fraction] 43.7 % Normal 42.0-51.0 [facility] Comment on above: Performed By: #### L 200.0010 #### ML [facility] [address] [place] [address] 06537 Hemoglobin (Bld) [Mass/Vol] 14.2 g/dL Normal 14.0-17.2 [facility] Comment on above: Performed By: #### L 200.0010 #### [facility] [address] [place] [address]35 LYMPH# 0.90 x10(3) Low 1.00-3.50 [facility] Comment on above: Performed By: #### L 200.0010 #### ML [facility] [address] [place] [address] 57512 Lymphocytes/100 WBC (Bld) 16.7 % Normal 16.0-48.0 [facility] Comment on above: Performed By: #### L 200.0010 #### ML [facility] [address] [place] [address] 34423 MCH (RBC) [Entitic mass] 30.4 pg Normal 28.8-32.2 [facility] Comment on above: Performed By: #### L 200.0010 #### ML [facility] [address] [place] [address] 37375 MCHC (RBC) [Mass/Vol] 32.6 g/dL Low 33.0-36.0 [facility] Comment on above: Performed By: #### L 200.0010 #### ML [facility] [address] [place] [address] 78610 MCV (RBC) [Entitic vol] 93.4 fL Normal 80.0-94.0 [facility] Comment on above: Performed By: #### L 200.0010 #### ML [facility] [address] [place] [address] 43693 MONO# 0.50 x10(3) Normal 0.30-0.80 [facility] Comment on above: Performed By: #### L 200.0010 #### [facility] [address] [place] [address] 26302 Monocytes/100 WBC (Bld) 10.3 % Normal 4.3-11.2 [facility] Comment on above: Performed By: #### L 200.0010 #### ML [facility] [address] [place] [address] 92932 NEUT# 3.70 x10(3) Normal 1.40-6.50 [facility] Comment on above: Performed By: #### L 200.0010 #### ML [facility] [address] [place] [address] 91629 Neutrophils/100 WBC (Bld) 72.2 % Normal 45.0-73.0 [facility] Comment on above: Performed By: #### L 200.0010 #### [facility] - LABORATORY [address] [place] [address] 72594 Platelet mean volume (Bld) [Entitic vol] 8.2 fL Normal 7.4-9.2 [facility] Comment on above: Performed By: #### L 200.0010 #### ML [facility] [address] [place] [address] 79408 PLT 205 X10(3) Normal 150-450 [facility] Comment on above: Performed By: #### L 200.0010 #### ML [facility] [address] [place] [address] 70171 RBC 4.68 x10(6) Low 4.80-5.50 [facility] Comment on above: Performed By: #### L 200.0010 #### [facility] - LAB[facility]AT[facility] [address] [place] [address] 76572 WBC 5.2 x10(3) Normal 4.5-10.0 [facility] Comment on above: Performed By: #### L 200.0010 #### [facility] - LABORATORY [address] [place] [address] CHEST (TWO VIEWS) - CXRon CHEST (TWO VIEWS) - CXR [address] [address] Name: MIRI CAI Phys: CARSON BULLOCK III, D.O. : [birth year] Age: 76 Sex: M Acct: [id number] Loc: [facility] Exam Date: 01/24/22 Status: PRE [facility] Radiology No.: Unit Number: [id number] Exam # Type/Exam [id number] RAD / CHEST (TWO VIEWS) - CXR HISTORY: Osteoarthritis, preop COMPARISON: No diagnostic images are available. FINDINGS: The lungs and pleural spaces are clear. The pulmonary vasculature is unremarkable in appearance. The cardiac silhouette is within normal size limits. IMPRESSION: Clear lungs. Electronically signed By Allison Izaguirre MD 01/24/2022 12:19:33 PM EST Workstation ID : [id number] < > Reported By: ALLISON IZAGUIRRE M.D. Signed In Fluency By: ALLISON IZAGUIRRE M.D. << Signature on File>> Reported By: ALLISON IZAGUIRRE M.D. Signed By: ALLISON IZAGUIRRE M.D. Tests performed at: [address] [address] [facility] Telephone (ORUPDO) NEGRITAMIRI ([id number]) 1945 M Date Time Provider Department 01/24/22 CARSON BULLOCK III During your visit today, we recorded the following information about you: Ellen Davila RN 01/24/2022 11:26 AM Addendum I received a call from cardiology at [facility] regarding this patients EKG report. He is currently in atrial flutter due to stopping his Metoprolol and Eliquis yesterday with no recommendation from the prescribing physician. His phone is broken so he is planning on coming into our office today. I reached out to Araceli at [facility] pre-op to inform her of the above. DELPHINE Johnson RN 01/24/2022 11:25 AM Signed I called and spoke with Loan AKERS at Dr. Tony's office. They also received a call from the lab at [facility] regarding the results and advised that I instruct the patient to continue those two medications until indicated otherwise. Will notify him when he stops into the office. DELPHINE [place] PA-C 01/24/2022 11:29 AM Signed Thank you for the update. LUIS FELIPE Moid RN 01/24/2022 3:39 PM Signed The patient stopped into the office and I instructed him to continue his Metoprolol and Eliquis. I explained that we will discuss when to discontinue the Eliquis during his pre-op visit on 01/31. He voiced understanding. I told him to call into the office with any further concerns/questions. Ellen Davila RN Allergies As of Date: 01/24/2022 (No Known Allergies) Date Reviewed: 12/25/2021 Reviewed by: Renee Mullins - Fully Assessed Reason for Visit: EKG Result [Other] Prescriptions as of 01/24/2022 - ELIQUIS 5 mg tab(s) Take 5 mg by mouth twice daily. - Ascorbic Acid 1,000 mg TbER Take by mouth. - cholecalciferol (VITAMIN D3) 1,000 unit tab tablet Take by mouth. - metoprolol succinate ER (TOPROL XL) 50 mg 24 hr tablet Take 50 mg by mouth. Problem List As Of Date: 01/24/2022 (None) Encounter Status:Closed by ELLEN DAVILA on 01/24/22 Normal [facility] ELECTROCARDIOGRAMon 01-25-20 [place] [address] HEALTH INFORMATION MANAGEMENT ELECTROCARDIOGRAM REPORT Patient: MIRI CAI Ordering: CARSON BULLOCK III, D.O. [id number] M Exam Date: 01/24/22 Report #: [id number] Status: PRE SDC AMB Test Reason : Blood Pressure : / mmHG Vent. Rate : 087 BPM Atrial Rate : 261 BPM P-R Int : 000 ms QRS Dur : 108 ms QT Int : 410 ms P-R-T Axes : 245 -30 042 degrees QTc Int : 493 ms Atrial flutter with 3:1 AV conduction Left axis deviation Abnormal ECG No previous ECGs available Confirmed by JIM BEE MD ([id number]) on 01/24/2022 2:10:41 PM Referred By: Confirmed By:JIM BEE MD Signed in [employer] 01/24/22 1412 JIM BEE M.D. cc: << Signature on File>> Reported By: JIM BEE M.D. Signed By: JIM BEE M.D. Tests performed at: [place] [address] [facility] PHYSICAL THERAPY REPORTon PHYSICAL THERAPY [facility] [place] [address] PHYSICAL THERAPY REPORT Patient: MIRI CAI CARSON BULLOCK III, D.O. [id number] M Status: REG RCR PT Outpatient Physical Therapy Initial Evaluation DATE OF VISIT: 01/24/2022 PHYSICAL THERAPY DIAGNOSES: 1. Left shoulder pain. 2. Bilateral shoulder stiffness. 3. Muscle weakness. 4. Abnormal posture. MEDICAL DIAGNOSES: 1. Primary osteoarthritis of left shoulder, M19.012. 2. Injury of tendon of the long head of left biceps, S46.102A. CHIEF COMPLAINT: The patient complains of 5/10 left shoulder pain, which is intermittent due to degenerative arthritis. HISTORY: The patient is a 76-year-old male who is scheduled to undergo a left reverse total shoulder arthroplasty with an open biceps tenodesis on 02/06/2022. The patient denies any history of injury to the left shoulder. He states imaging has shown degenerative arthritis. The patient states he has problems with his right shoulder as well and will likely need surgery on the right shoulder in the future. The patient lives alone in a single-sam home. He is retired and enjoys doing yard work. He states his phone recently and that he does not have internet or e-mail. He does not appear to have any postoperative plans made and is concerned about communication preoperatively with regard to testing and scheduling. The patient states he is primarily right handed. His pain is 5/10 at worst. He has no current pain. He states his pain primarily occurs with quick movements of the left shoulder. He is not currently taking any medications for his left shoulder pain. PERSONAL FACTORS AND COMORBIDITIES: Diabetes, hypertension, heart disease, history of cancer, migraine headaches, infectious disease, and arthritis. Please see intake form. OBJECTIVE: The patient ambulates into the clinic without an assistive device and displays no gait deviations. In a seated position, he displays a rounded shoulder posture and a corresponding forward head posture. Active range of motion of the right shoulder measured 117 degrees forward elevation, 50 degrees external rotation at 60 degrees of abduction, and internal rotation to the L2 spinous process. Passive range of motion of the right shoulder measured 132 degrees forward elevation, but he displayed significant tightness into both internal and external rotation. Left shoulder active range of motion measured 80 degrees forward elevation, 0 degrees external rotation, and internal rotation to the S1 level. Passive left shoulder forward elevation measured approximately 120 degrees. Passive external rotation was to neutral only. The patient displayed crepitus with passive active movement of both shoulders. Right shoulder strength measured 5/5 globally. Left shoulder strength measured 4-/5 globally with crepitus and pain noted. The patient was educated on the preop/postop exercise program. All aspects of the program were reviewed in detail and all questions were answered. The patient demonstrated each of the preop/postop exercises, which he displayed appropriate understanding with. CLINICAL PRESENTATION: The patient displays a stable clinical presentation with uncomplicated characteristics. CLINICAL DECISION MAKING: Low complexity based upon the above history and examination. PROBLEM LIST: 1. Left shoulder pain. 2. Decreased left shoulder passive and active range of motion, especially into external rotation. 3. Decreased left upper quarter muscle strength. 4. Abnormal posture. GOALS: The goal of today's session was for the patient to be independent with all preop instruction. This goal was achieved. REHABILITATION POTENTIAL: Fair to good pending upcoming surgery. TREATMENT PLAN: No further treatment is scheduled at this time. FREQUENCY/DURATION: No further treatment is scheduled at this time. DISCHARGE PLANS: The patient will be discharged to preop management at this time. The patient was urged to stop over to your office and discuss his communication/postop planning issues with your staff. Thank you for the opportunity to participate in your patient's plan of care. If you have any further questions regarding this case, please feel free to contact me here at the [facility]. Report#: Dict ID [id number] / Int ID [id number] cc: Carson Bullock III, DO Dictated By: DIAZ VAUGHAN DPT 01/29/22 1319 __ DIAZ VAUGHAN DPT CC: CARSON BULLOCK III, D.O. << Signature on File>> Reported By: DIAZ VAUGHAN DPT Signed By: DIAZ VAUGHAN DPT Tests performed at: [address] [id number] [facility] [place] 01-15-2022 [facility] Telephone (ORUPDO) MIRI CAI ([id number]) 1945 M Date Time Provider Department 01/15/22 CARSON BULLOCK III During your visit today, we recorded the following information about you: Hannah Pavon 01/15/2022 11:01 AM Signed Miri Cai 1945 Date of Surgery: 02/06/2022 Surgeon's Name: Carson Bullock III, DO Facility: [facility] Surgery: Left Reverse total shoulder arthroplasty; open biceps tenodesis Surgical Diagnosis: M19.012 Primary osteoarthritis of left shoulder (primary encounter diagnosis) S46.102A Injury of tendon of long head of left biceps, initial encounter M25.512, G89.29 Chronic left shoulder pain CPT Code: 46123, 10451 ICD 10: M19.012, S46.102 [place] 01/15/2022 12:08 PM Signed Per Concha Beltran at [facility], [place] [address] however [address] does require an auth. Auth has been sent via [employer] website and is pending; Call ref # [id number] [place] 01/24/2022 12:22 PM Signed Per Concha Beltran at [facility], Approved; Auth # [id number] 01/15/2022-01/15/2023 [place] Allergies As of Date: 01/15/2022 (No Known Allergies) Date Reviewed: 12/25/2021 Reviewed by: Renee Mullins - Fully Assessed Reason for Visit: AMBX SX AUTH 02/06/2022 [Other] Prescriptions as of 01/24/2022 - ELIQUIS 5 mg tab(s) Take 5 mg by mouth twice daily. - Ascorbic Acid 1,000 mg TbER Take by mouth. - cholecalciferol (VITAMIN D3) 1,000 unit tab tablet Take by mouth. - metoprolol succinate ER (TOPROL XL) 50 mg 24 hr tablet Take 50 mg by mouth. Problem List As Of Date: 01/15/2022 (None) Encounter Status:Closed by [facility]H [facility]AVON [facility] NEGRITAMIRI ([id number]) 1945 M Date Time Provider Department 01/11/22 CARSON BULLOCK III During your visit today, we recorded the following information about you: Hannah Pavon 01/11/2022 11:52 AM Signed Left message on machine to call. Calling to schedule surgery. Hannah Pavon 01/11/2022 3:39 PM Signed Patient is scheduled for Left Reverse total shoulder arthroplasty; open biceps tenodesis on 2021. Please review and sign orders. Physician review appointment scheduled for 01/31/2022. Hannah Pavon Allergies As of Date: 01/11/2022 (No Known Allergies) Date Reviewed: 12/25/2021 Reviewed by: Renee Mullins - Fully Assessed Reason for Visit: Schedule Surgery [1330] Primary Visit Diagnosis:Primary osteoarthritis of left shoulder [M19.012] Other Visit Diagnoses:Injury of tendon of long head of left biceps, initial encounter [S46.102A] Preoperative testing [Z01.818] Diabetes mellitus due to underlying condition with hyperglycemia, with long-term current use of insulin ([facility]) [E08.65, Z79.4] Order(s):BASIC METABOLIC PNL [SQBMP] Order #: [id number] FUTURE CBC + DIFF [SQCBCDIF] Order #: [id number] FUTURE ECG COMPLETE [ECG01] Order #: [id number] FUTURE TYPE + SCREEN [SQTSCR] Order #: [id number] FUTURE UNION ORTH SURGICAL PROCEDURES [1249905] Order #: [id number] XR CHEST 2V FRONTAL/LAT [9980008] Order #: [id number] FUTURE HGB A1C [GHMXI2B] Order #: [id number] FUTURE PRE-PROCEDURE AND PRE-OPERATIVE COVID [SQPOCOVD] Order #: [id number] FUTURE Prescriptions as of 01/12/2022 - ELIQUIS 5 mg tab(s) Take 5 mg by mouth twice daily. - Ascorbic Acid 1,000 mg TbER Take by mouth. - cholecalciferol (VITAMIN D3) 1,000 unit tab tablet Take by mouth. - metoprolol succinate ER (TOPROL XL) 50 mg 24 hr tablet Take 50 mg by mouth. Problem List As Of Date: 01/11/2022 (None) Encounter Status:Closed by CARSON BULLOCK on 01/12/22 Normal [facility] CT UPPER EXTREMITY WO CONTRA STon 01-10-2022 CT UPPER EXTREMITY WO CONTRAST [address] [address] Name: MIRI CAI Phys: CARSON BULLOCK III, D.O. : [birth year] Age: 76 Sex: M Acct: [id number] Loc: RAD CT Exam Date: 01/10/22 Status: REG CLI Radiology No.: Unit Number: [id number] Exam # Type/Exam [id number] CT / CT UPPER EXTREMITY WO CONTRAST LT EXAMINATION: CT OF THE LEFT UPPER EXTREMITY WITHOUT CONTRAST 01/10/2022 9:31 pm TECHNIQUE: CT of the left upper extremity was performed without the administration of intravenous contrast. Multiplanar reformatted images are provided for review. Automated exposure control, iterative reconstruction, and/or weight based adjustment of the mA/kV was utilized to reduce the radiation dose to as low as reasonably achievable. COMPARISON: None. HISTORY ORDERING SYSTEM PROVIDED HISTORY: TECHNOLOGIST PROVIDED HISTORY: Reason for Exam: OSTEOARTHRITIS osteoarthritis left shoulder FINDINGS: Mild acromioclavicular joint arthrosis noted. Severe izph-jp-uxek arthropathy noted in the glenohumeral joint. Large hypertrophic spurs and areas of subchondral sclerosis noted. Sclerotic lesion in the glenoid is likely a bone island. Degenerative changes seen in the spine. IMPRESSION: Severe glenohumeral joint arthrosis with dyze-xx-lfwy arthropathy Mild acromioclavicular joint arthrosis Electronically signed By Vijay Wall MD 01/11/2022 8:48:27 AM EST Workstation ID : [id number] < > Reported By: VIJAY WALL M.D. Signed In Fluency By: VIJAY WALL M.D. << Signature on File>> Reported By: VIJAY WALL M.D. Signed By: VIJAY WALL M.D. Tests performed at: [place] [address] [place] [address] [facility] [place] 12-26-2021 CNPN Telephone (ORUPDO) MIRI CAI ([id number]) 1945 M Date Time Provider Department 12/26/21 CARSON BULLOCK III During your visit today, we recorded the following information about you: Kerri Abraham 12/26/2021 2:[address] SCAN SCHEDULED 01/10/22. KERRI Allergies As of Date: 12/26/2021 (No Known Allergies) Date Reviewed: 12/25/2021 Reviewed by: Renee Mullins - Fully Assessed Reason for Visit: Scans [867] Prescriptions as of 01/01/2022 - ELIQUIS 5 mg tab(s) Take 5 mg by mouth twice daily. - Ascorbic Acid 1,000 mg TbER Take by mouth. - cholecalciferol (VITAMIN D3) 1,000 unit tab tablet Take by mouth. - metoprolol succinate ER (TOPROL XL) 50 mg 24 hr tablet Take 50 mg by mouth. Problem List As Of Date: 12/26/2021 (None) Encounter Status:Closed by KERRI ABRAHAM on 01/01/22 [facility] CNOVon 12-25-2021 CNOV Office Visit (ORUPDO ) MIRI CAI ([id number]) 1945 M Date Time Provider Department 12/25/21 11:15 AM CARSON BULLOCK III During your visit today, we recorded the following information about you: Pulse Blood pressure Weight Height 87/minute 175/93 83.9 kg 1.778 m Carson Bullock III, 12/31/2021 9:57 PM Signed ESTABLISHED PATIENT - NEW SHOULDER EXAM Brief History: The patient is a pleasant 76 year old male who presents to the office with bilateral shoulder pain. The patient is familiar to my office. He was kindly referred by Dr. Lee. I have personally reviewed prior documentation and X-rays. The patient was seen on 12/17/2021 for bilateral shoulder pain by Dr. Lee. He states his left shoulder is worse. The patient states this has been going on over the last several years. Today, the patient states his shoulder pain is getting worse. He states he has pain with certain movements. The patient states he can hear occasional crunching in his shoulder. He does not currently take anything for the pain. He is here today for evaluation and treatment options. I, BRENDAN Trent, transcribing for Dr. Carson Bullock III, DIoanaO. PAIN EVALUATION 12/25/2021 1107 Pain Level: 3 ORTHOPAEDIC HISTORY REVIEW: Previous injury to shoulder: Denies Current injury to shoulder: Denies Conservative Therapy: Present, rest, observation, activity modification NSAID Therapy: Denies Physical Therapy: Denies Injections: Denies Previous Imaging: Yes, X-rays in office Previous shoulder surgeries: Denies Employment: The patient is retired. Their shoulder pain is not a work related injury. Night Pain or Difficulty Sleeping: Denies Patient Risk Factors: Diabetes mellitus (HCC) and Essential hypertension ALLERGIES No Known Allergies Current Outpatient Medications Medication Sig Dispense Refill ELIQUIS 5 mg tab(s) Take 5 mg by mouth twice daily. Ascorbic Acid 1,000 mg TbER Take by mouth. cholecalciferol (VITAMIN D3) 1,000 unit tab tablet Take by mouth. metoprolol succinate ER (TOPROL XL) 50 mg 24 hr tablet Take 50 mg by mouth. No current facility-administered medications for this visit. PAST MEDICAL HISTORY Diagnosis Date Arrhythmia Diabetes mellitus (HCC) Essential hypertension PAST SURGICAL HISTORY Procedure Laterality Date NON-MELANOMA SKIN CANCER TUMOR BOARD [facility] 10/2021 REMV CATARACT EXTRACAP,INSERT LENS Bilateral 06/2021 REPAIR INCISIONAL HERNIA,REDUCIBLE 2008 BP 175/93 Pulse 87 Ht 5' 10 (1.78m) Wt 185 lb (83.9kg) BMI 26.54 kg/(m2). Review of Systems Constitutional: Negative. HENT: Negative. Respiratory: Negative. Cardiovascular: Negative. Gastrointestinal: Negative. Endocrine: Negative. Skin: Negative. Wound on the top of the head due to skin cancer Neurological: Negative. Hematological: Negative. Musculoskeletal: Positive for left shoulder pain Left Shoulder Exam Tenderness The patient is experiencing tenderness in the biceps tendon (Greater Tuberosity). Range of Motion Active abduction: 80 abnormal Passive abduction: 80 abnormal Extension: 30 abnormal External rotation: 30 abnormal Forward flexion: 150 abnormal Internal rotation 0 degrees: Sacrum abnormal Internal rotation 90 degrees: 40 abnormal Muscle Strength Abduction: 4/5 Internal rotation: 4/5 External rotation: 3/5 Supraspinatus: 4/5 Subscapularis: 4/5 Biceps: 4/5 Tests Samson test: positive Impingement: positive Drop arm: positive Other Erythema: absent Scars: absent Sensation: normal Pulse: present DIAGNOSTIC STUDIES: On 12/17/2021 in the office, three views of the patient's left shoulder were taken and personally reviewed with the patient in great detail. These xrays demonstrate erosion of the glenoid. There is severe arthritis of the glenohumeral joint. The AC joint has age appropriate arthrosis. On the scapular Y view there is a Type II acromion. On the axillary view the glenoid vault has adequate bone stock. There are no acute injuries or fractures. Close inspection of the bone shows no obvious lesions. The density in quality of the bone is appropriate given their age. Procedures Encounter Diagnosis ICD-10-CM 1. 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 Injury of tendon of long head of left biceps, initial encounter S46.102A 3. Chronic left shoulder pain M25.512 CT SHOULDER WO IVCON LT G89.29 PLAN: MEDICAL DECISION MAKING: Moderate (Potential for Major Surgery) TIME: I spent a total of 30 minutes on the date of the service which included preparing to see the patient, [id number] patient care, completing clinical documentation, obtaining and/or reviewing separately obtained history, performing a medically appropriate examination, counseling and educating the patient/family/ (more content not included)... Normal [facility] So 12-25-2021 CNPN Telephone (ORUPDO) MIRI CAI ([id number]) 1945 M Date Time Provider Department 12/25/21 CARSON BULLOCK III During your visit today, we recorded the following information about you: Kerri Abraham 12/25/2021 4:08 PM Signed PLEASE OBTAIN AUTH FOR CT LEFT SHOULDER WITHOUT THANKS, KERRI Poe 12/26/2021 12:37 PM Signed Per Concha Beltran at [facility], No auth required since they are secondary to Medicare; Call ref # [id number] Ta Abraham 12/26/2021 2:13 PM Signed SCHEDULED 01/10/22 AT 730 PM ORDER FAXED. PATIENT NEEDS TO ARRIVE 20 MIN EARLY AND PRE REGISTER. LEFT MESSAGE FOR PATIENT NO FOLLOW UP NEEDED WE WILL CONTACT PATIENT REGARDING SURGERY. KERRI Allergies As of Date: 12/25/2021 (No Known Allergies) Date Reviewed: 12/25/2021 Reviewed by: Renee Mullins - Fully Assessed Reason for Visit: CT AUTH [Other] Prescriptions as of 12/26/2021 - ELIQUIS 5 mg tab(s) Take 5 mg by mouth twice daily. - Ascorbic Acid 1,000 mg TbER Take by mouth. - cholecalciferol (VITAMIN D3) 1,000 unit tab tablet Take by mouth. - metoprolol succinate ER (TOPROL XL) 50 mg 24 hr tablet Take 50 mg by mouth. Problem List As Of Date: 12/25/2021 (None) Encounter Status:Closed by KERRI [facility]RAH[facility] ) MIRI CAI ([id number]) 1945 M Date Time Provider Department 12/17/21 1:30 PM AN LEE During your visit today, we recorded the following information about you: Pulse Blood pressure Weight Height 89/minute 160/98 83.9 kg 1.778 m An Lee MD 12/17/2021 2:05 PM Signed SERVICE DATE: December 17, 2021 1:50 PM PCP: No primary care provider on file. Consult requested by JENELLE Hendricks for an opinion regarding chief complaint as stated below. My final impression and recommendations will be communicated back to the requesting physician by way of the shared medical record or letter via US mail. Subjective Patient ID: Miri Cai is a 76 year old male presenting today with a complaint of bilateral shoulder pain, left worse than right. HPI: Patient presents with bilateral upper extremity complaints. He has noted bilateral shoulder pain over the last several years. He states his left shoulder is worse than his right. He is right hand dominant. He denies any specific injury to either shoulder. He describes constant moderate pain, loss of motion, clicking, weakness, grinding, and locking. He notes discomfort with overhead activities and at night. He states his shoulder are currently functioning at 40% of normal. He is unable to wash his back. He notes significant difficulty with toileting, lifting 10 pounds above his shoulder, and throwing a ball overhand. He has moderate difficulty with putting on a coat, sleeping on either side, and reaching a high shelf. 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 Brandy Benoit scribe, transcribing for An Lee MD PAIN EVALUATION 12/17/2021 1318 Pain Level: 4 ALLERGIES No Known Allergies PAST MEDICAL HISTORY Diagnosis Date Arrhythmia Diabetes mellitus (HCC) Essential hypertension PAST SURGICAL HISTORY Procedure Laterality Date NON-MELANOMA SKIN CANCER TUMOR BOARD [facility] 10/2021 REMV CATARACT EXTRACAP,INSERT LENS Bilateral 06/2021 REPAIR INCISIONAL HERNIA,REDUCIBLE 2009 History reviewed. No pertinent family history. Social History Tobacco Use Smoking status: Former Types: Cigarettes, Cigars Smokeless tobacco: Never Substance Use Topics Alcohol use: Yes Comment: not very often Drug use: Yes Current Outpatient Medications Medication Sig Dispense Refill ELIQUIS 5 mg tab(s) Take 5 mg by mouth twice daily. Ascorbic Acid 1,000 mg TbER Take by mouth. cholecalciferol (VITAMIN D3) 1,000 unit tab tablet Take by mouth. metoprolol succinate ER (TOPROL XL) 50 mg 24 hr tablet Take 50 mg by mouth. No current facility-administered medications for this visit. Allergies, medications, past surgical history, family history and past medical history were reviewed per this encounter. Review of Systems Constitutional: Negative for activity change, chills, fatigue, fever and unexpected weight change. HENT: Negative for dental problem, sore throat, tinnitus, trouble swallowing and voice change. Eyes: Negative for visual disturbance. Respiratory: Negative for apnea, cough, shortness of breath and wheezing. Cardiovascular: Positive for palpitations. Negative for chest pain and leg swelling. Gastrointestinal: Negative for constipation, diarrhea, nausea and vomiting. Genitourinary: Positive for frequency (and nocturia). Negative for difficulty urinating, dysuria and urgency. Skin: Negative for color change, rash and wound. Neurological: Negative for dizziness, seizures, syncope, weakness, numbness and headaches. Hematological: Does not bruise/bleed easily. Psychiatric/Behaviora l: Negative for behavioral problems and decreased concentration. The patient is not nervous/anxious. Physical Exam BP 160/98 Pulse 89 Ht 177.8 cm (5' 10) Wt 83.9 kg (185 lb 1 oz) BMI 26.55 kg/m? General: Alert and oriented. No acute distress. Ambulation status: Within normal limits. Appearance: Within normal limits, well nourished, well developed. Behavior: Within normal limits, appropriate cooperative. Pulmonary: Non-labored respirations Cardio: Peripheral pulses intact Right Shoulder Exam Tenderness The patient is experiencing no tenderness. Range of Motion Forward flexion: abnormal Internal rotation 0 degrees: abnormal Muscle Strength The patient has normal right shoulder strength. Tests Samson test: negative Impingement: negative Other Erythema: absent Scars: absent Sensation: normal Pulse: present Left Shoulder Exam Tenderness The patient is experiencing no tenderness. Range of Motion Forward flexion: abnormal Internal rotation 0 degrees: abnormal Muscle Strength The patient has normal left shoulder strength. Tests Samson test: negative Impingement: negative Other Erythema: absent Scars: absent Sensation: normal Pulse: pres (more content not included)... [facility] BASIC METABOLIC PANELon - Anion gap [Moles/Vol] 7 mmol/L Normal 5-19 [facility] Comment on above: Performed By: #### L [id number] #### [facility] [address] [place] [address] [place] Calcium [Mass/Vol] 9.9 mg/dL Normal 8.4-10.2 [facility] Comment on above: Performed By: #### L [id number] #### [facility] [address] [place] [address]272 [place] Chloride [Moles/Vol] 103 mmol/L Normal 98-107 [facility] Comment on above: Performed By: #### L [id number] #### [facility] [address] [place] [address] 38886 [place] CO2 [Moles/Vol] 28 mmol/L Normal 22-30 [facility] Comment on above: Performed By: #### L [id number] #### [facility] [address] [place] [address]883 [place] Creatinine [Mass/Vol] 1.10 mg/dL Normal 0.70-1.30 [facility] Comment on above: Performed By: #### L [id number] #### [facility] [address] [place] [address] 87359 [place] ESTIMATED GFR 69 mL/min/1.73m???2 Normal >60 [facility] Comment on above: Performed By: #### L [id number] #### [facility] [address] [place] [address] 12574 [place] Glucose [Mass/Vol] 101 mg/dL Normal 74-106 [facility] Comment on above: Performed By: #### L [id number] #### [facility] [address] [place] [address]106 [place] Narrative Estimated Glomerular Filtration Rate (eGFR) is calculated using the CKD-EPI (2020) equation, intended for patients 18 years of age and older. If gender is not documented or unknown, there will be no eGFR calculation. Abnormal [facility] Comment on above: Performed By: #### L [id number] #### [facility] [address] [place] [address] 96748 [place] Potassium [Moles/Vol] 4.5 mmol/L Normal 3.5-5.1 [facility] Comment on above: Performed By: #### L [id number] #### [facility] [address] [place] [address] 47743 [place] Sodium [Moles/Vol] 138 mmol/L Normal 137-145 [facility] Comment on above: Performed By: #### L [id number] #### [facility] [address] [place] [address] 35428 [place] Urea nitrogen [Mass/Vol] 26 mg/dL High 9-[address] [address] Comment on above: Performed By: #### L [id number] #### [facility] [address] [place] [address] 28432 [place] Urea nitrogen/Creatinine [Mass ratio] 24 mg/mg High 6-20 [facility] Comment on above: Performed By: #### L [id number] #### [facility] [address] [place] [address]275 [place] LYME DISEASE ANTIBODY, IMMUN OBLOT, SERUMon 09-27-2021 18 KD (IGG) BAND Reactive Abnormal [facility] Comment on above: Performed By: #### L [id number] #### [facility], [address] [place], [place] 23 KD (IGG) BAND Reactive Abnormal [facility] Comment on above: Performed By: #### L [id number] #### [facility], [address] [address], [place] 23 KD (IGM) BAND Reactive Abnormal [facility] Comment on above: Performed By: #### L [id number] #### [facility], [address] [place], [place] 28 KD (IGG) BAND Reactive Abnormal [facility] Comment on above: Performed By: #### L [id number] #### [facility], [id number] [place] [address] 30 KD (IGG) BAND Reactive Abnormal [facility] Comment on above: Performed By: #### L [id number] #### [facility], [id number] [place] [address] 39 KD (IGG) BAND Reactive Abnormal [facility] Comment on above: Performed By: #### L [id number] #### [facility], [address] [place] [address] 39 KD (IGM) BAND Reactive Abnormal [facility] Comment on above: Performed By: #### L [id number] #### [facility], [id number] [place] [address] 41 KD (IGG) BAND Reactive Abnormal [facility] Comment on above: Performed By: #### L [id number] #### [facility], [address] [place] [address] 41 KD (IGM) BAND Reactive Abnormal [facility] Comment on above: Result Comment: As per CDC criteria, a Lyme disease IgG immunoblot must show reactivity to at least 5 of 10 specific borrelial proteins to be considered positive; similarly, a positive Lyme disease IgM immunoblot requires reactivity to 2 of 3 specific borrelial proteins. Although considered negative, IgG reactivity to fewer specific borrelial proteins or IgM reactivity to only 1 protein may indicate recent B. burgdorferi infection and warrant testing of a later sample. A positive IgM but negative IgG result obtained more than a month after onset of symptoms likely represents a false IgM result rather than acute Lyme disease. In rare instances, Lyme disease immunoblot reactivity may represent antibodies induced by exposure to other spirochetes. Lyme Immunoblot testing should only be performed on samples from patients who have had a Positive or Equivocal result in a screening assay. The Code of [place], Article 1 of Chapter 5 of Title 32.1, section 32.1-137.06, requires that the following language must be included on every Lyme disease test report issued by a [place] laboratory: Patients undergoing a Lyme disease test should be aware that Lyme disease tests vary and may produce results that are inaccurate. This means a patient may not be able to rely on a positive or negative result. Health care providers are encouraged to discuss Lyme disease test results with the patient for whom the test was ordered. Performed By: #### L [id number] #### [facility], [address] [place] [address] [address] [place], [place] 45 KD (IGG) BAND Reactive [facility] Comment on above: Performed By: #### L [id number] #### [facility], [address] [place] [address] [address] [place], [place] 58 KD (IGG) BAND Reactive Abnormal [facility] Comment on above: Performed By: #### L [id number] #### [facility], [address] [place] [address] [address] [place], [place] 66 KD (IGG) BAND Reactive Abnormal [facility] Comment on above: Performed By: #### L [id number] #### [facility], [address] [place] [address] [address] [place], [place] 93 KD (IGG) BAND Reactive Abnormal [facility] Comment on above: Performed By: #### L [id number] #### [facility], [address] [place] [address] [address] [facility] LYME DISEASE AB(IGG),BLOT Positive Abnormal Negative [facility] Comment on above: Performed By: #### L [id number] #### [facility], [address] [place] [address] DR [place] LYME DISEASE AB(IGM),BLOT Positive Abnormal Negative [facility] Comment on above: Performed By: #### L [id number] #### [facility], [address] [place] [address] [place], [place] SURGICALon 09-12-2021 SURGICAL SCALP, BIOPSY OF - R T SUPERIOR PARIETAL SCALP..SHAVE Abdomen - RT LATERAL ABDOMEN...SHAVE -------- FINAL DIAGNOSIS: A. SUPERFICIAL SHAVE BIOPSY OF SKIN OF RIGHT SUPERIOR PARIETAL SCALP WITH ACTINIC KERATOSIS WITH SEVERE EPITHELIAL DYSPLASIA AND AT LEAST SQUAMOUS CELL CARCINOMA IN SITU. MARGINS OF THE SHAVE BIOPSY ARE INVOLVED. NOTE: THE LESION EXTENDS BEYOND THE MARGINS OF THE SHAVE BIOPSY. NO INVASIVE CARCINOMA SEEN IN THE PORTION SUBMITTED. B. SHAVE BIOPSY OF SKIN OF RIGHT LATERAL ABDOMEN: BENIGN COMPOUND NEVUS WITH PROMINENT INTRADERMAL COMPONENT. NO DYSPLASIA OR MALIGNANCY IDENTIFIED. THE MARGINS OF THE BIOPSY APPEAR UNINVOLVED BUT ARE LESS THAN 1 MM. Dictated by: AN CORTES D.O -------- MICROSCOPIC DESCRIPTION: Slide(s) reviewed. [facility] 09/14/2021 GROSS DESCRIPTION: The specimen is received in two appropriately labeled containers. A. The first designated right superior parietal scalp. The specimen consists of a superficial skin biopsy, parmar, measures 1 x 0.5 x 0.2 cm. This has a slightly granular appearance throughout. (3,ns). B. The second specimen designated right lateral abdomen. The specimen consists of a dome-shaped portion of parmar-pink tissue 6 x 6 x 2 mm (3,ns). [facility] 09/13/2021 CLINICAL DATA: PROCEDURE: A. Biopsy by Shave Method H and E - Right superior parietal scalp, B. Shave removal - Right lateral abdomen PRE-OP: A. Rule-out Squamous Cell Carcinoma (D48.5), B. Rule-out Dysplastic Nevus (D48.5) POST-OP: Not given HISTORY: A. There is a keratotic pink papule measuring 1 cm in diameter. The lesion is well-demarcated. There is some blackish discoloration apparent in conjunction with the lesion. B. There is a brown irregular macule measuring 0.6 cm in diameter. The lesion is poorly demarcated with some blackish discoloration present. No ulcerations, erosions, or infections are noted in conjunction with the lesion. SPECIAL STAINS a RECUT many many Signed *Electronically Signed* AN CORTES D.O 09/14/21 1532 -------- [facility] Comment on above: Performed By: #### P -S #### [facility] [address] [place] [address] CBC WITH DIFFon 08-29-2021 BASOPHIL # 0.00 x10???3/uL Normal 0.00-0.20 [facility] Comment on above: Performed By: #### L [id number] #### [facility] [address] [place] [address] 77346 [place] Basophils/100 WBC (Bld) 1 % Normal 0-2 [facility] Comment on above: Performed By: #### L [id number] #### [facility] [address] [place] [address] [place] EOSINOPHIL # 0.00 x10???3/uL Normal 0.00-0.60 [facility] Comment on above: Performed By: #### L [id number] #### [facility] [address] [place] [address] 47819 [place] Eosinophils/100 WBC (Bld) 1 % Normal 0-5 [facility] Comment on above: Performed By: #### L [id number] #### [facility] [address] [place] [address] 58355 [place] Erythrocyte distribution width (RBC) [Ratio] 14.3 % High 11.5-14.0 [facility] Comment on above: Performed By: #### L [id number] #### [facility] [address] [place] [address] 83924 [place] Hematocrit (Bld) [Volume fraction] 39.2 % Normal 36.0-46.0 [facility] Comment on above: Performed By: #### L [id number] #### [facility] [address] [place] [address] 83204 [place] Hemoglobin (Bld) [Mass/Vol] 13.2 g/dL Low 13.9-16.0 [facility] Comment on above: Performed By: #### L [id number] #### [facility] [address] [place] [address] 41158 [place] LYMPHOCYTE # 0.80 x10???3/uL Low 1.10-3.80 [facility] Comment on above: Performed By: #### L [id number] #### [facility] [address] [place] [address] 34081 [place] Lymphocytes/100 WBC (Bld) 13 % Low 19-46 [facility] Comment on above: Performed By: #### L [id number] #### [facility] [address] [place] [address] 83654 [place] MCH (RBC) [Entitic mass] 29.9 pg Normal 25.4-34.0 [facility] Comment on above: Performed By: #### L [id number] #### [facility] [address] [place] [address] 78760 [place] MCHC (RBC) [Mass/Vol] 33.7 g/dL Normal 30.0-37.0 [facility] Comment on above: Performed By: #### L [id number] #### [facility] [address] [place] [address] 47076 [place] MCV (RBC) [Entitic vol] 88.8 fL Normal 80.0-100.0 [facility] Comment on above: Performed By: #### L [id number] #### [facility] [address] [place] [address] 52977 [place] MONOCYTE # 0.80 x10???3/uL Normal 0.10-0.80 [facility] Comment on above: Performed By: #### L [id number] #### [facility] [address] [place] [address] 29467 [place] Monocytes/100 WBC (Bld) 13 % High 4-12 [facility] Comment on above: Performed By: #### L [id number] #### [facility] [address] [place] [address] 07170 [place] NEUTROPHIL # 4.50 x10???3/uL Normal 1.80-7.50 [facility] Comment on above: Performed By: #### L [id number] #### [facility] [address] [place] [address] 55789 [place] Neutrophils/100 WBC (Bld) 73 % High 41-69 [facility] Comment on above: Performed By: #### L [id number] #### [facility] [address] [place] [address] 40604 [place] Platelet mean volume (Bld) [Entitic vol] 7.2 fL Low 7.5-11.5 [facility] Comment on above: Performed By: #### L [id number] #### [facility] [address] [place] [address]93 [place] PLATELETS AUTOMATED 369 x10???3/uL Normal 130-400 [facility] Comment on above: Performed By: #### L [id number] #### [facility] [address] [place] [address] [place] RBC AUTOMATED 4.41 x10???6/uL Normal 4.30-5.90 [facility] Comment on above: Performed By: #### L [id number] #### [facility] [address] [place] [address] US WBC AUTOMATED CORRECTED 6.1 x10???3/uL Normal 4.5-11.5 [facility] Comment on above: Performed By: #### L [id number] #### [facility] [address] [place] [address] [place] COMPREHENSIVE METABOLIC PNL, [facility] 08-29-2021 Albumin [Mass/Vol] 4.4 g/dL Normal 3.5-5.0 [facility] Comment on above: Performed By: #### L [id number] #### [facility] [address] [place] [address] [place] Albumin/Globulin [Mass ratio] 1.2 {ratio} Low 1.5-2.5 [facility] Comment on above: Performed By: #### L [id number] #### [facility] [address] [place] [address] US ALP [Catalytic activity/Vol] 73 U/L Normal 38-126 [facility] Comment on above: Performed By: #### L [id number] #### [facility] [address] [place] [address] US ALT [Catalytic activity/Vol] 33 U/L Normal 10-49 [facility] Comment on above: Performed By: #### L [id number] #### [facility] [address] [place] [address] [place] Anion gap [Moles/Vol] 7 mmol/L Normal 5-19 [facility] Comment on above: Performed By: #### L [id number] #### [facility] [address] [place] [address] US AST [Catalytic activity/Vol] 50 U/L Normal 17-[address] [facility] Comment on above: Performed By: #### L [id number] #### [facility] [address] [place] [address] [place] Bilirubin [Mass/Vol] 0.6 mg/dL Normal 0.2-1.3 [facility] Comment on above: Performed By: #### L [id number] #### [facility] [address] [place] [address] US Calcium [Mass/Vol] 9.3 mg/dL Normal 8.4-10.2 [facility] Comment on above: Performed By: #### L [id number] #### [facility] [address] [place] [address] [place] Chloride [Moles/Vol] 93 mmol/L Low 98-107 [facility] Comment on above: Performed By: #### L [id number] #### [facility] [address] [place] [address] US CO2 [Moles/Vol] 29 mmol/L Normal 22-30 [facility] Comment on above: Performed By: #### L [id number] #### [facility] [address] [place] [address] US Creatinine [Mass/Vol] 0.80 mg/dL Normal 0.70-1.30 [facility] Comment on above: Performed By: #### L [id number] #### [facility] [address] [place] [address] US ESTIMATED GFR 86 mL/min/1.73m???2 Normal >60 [facility] Comment on above: Performed By: #### L [id number] #### [facility] [address] [place] [address] US Glucose [Mass/Vol] 100 mg/dL Normal 74-106 [facility] Comment on above: Performed By: #### L [id number] #### [facility] [address] [place] [address] US Narrative Estimated Glomerular Filtration Rate (eGFR) calculated using the CKD-EPI (2009) equation, intended for patients 18 years of age and older. If race and/or gender is not documented or unknown, there will be no eGFR calculation. Abnormal [facility] Comment on above: Performed By: #### L [id number] #### [facility] [address] [place] [address] US Potassium [Moles/Vol] 4.6 mmol/L Normal 3.5-5.1 [facility] Comment on above: Performed By: #### L [id number] #### [facility] [address] [place] [address] [place] Protein [Mass/Vol] 8.2 g/dL Normal 6.3-8.2 [facility] Comment on above: Performed By: #### L [id number] #### [facility] [address] [place] [address] [place] Sodium [Moles/Vol] 129 mmol/L Low 137-145 [facility] Comment on above: Performed By: #### L [id number] #### [facility] [address] [place] [address] US Urea nitrogen [Mass/Vol] 20 mg/dL Normal - [facility] Comment on above: Performed By: #### L [id number] #### [facility] [address] [place] [address] US Urea nitrogen/Creatinine [Mass ratio] 25 mg/mg High - [facility] Comment on above: Performed By: #### L [id number] #### [facility] [address] [place] [address] [place] HGA1C (HEMOGLOBIN A1C WITH E ST AVG GLUCOSE)on 08-29-2021 Glucose [Mass/Vol] 140 mg/dL Normal [facility] Comment on above: Performed By: #### L [id number] #### [place] [address] HbA1c (Bld) [Mass fraction] 6.5 % High 4.0-5.6 [facility] Comment on above: Performed By: #### L [id number] #### [place] [address] Narrative Abnormal [facility] Comment on above: Result Comment: ADA endorsed glycated hemoglobin decision points: >5.6% prediabetic; >6.4% diabetic. An evidence-based therapeutic goal of <7.0% is suggested by the ADA to reduce microvascular and neuropathic complications of type 1 and type 2 diabetes, but clinical goals may vary in different clinical situations. There are no age/gender specific ranges for eAG. Performed By: #### L [id number] #### [place] [address] LIPID PANELon 08-29-2021 Cholesterol [Mass/Vol] 187 mg/dL Normal <200 [facility] Comment on above: Performed By: #### L [id number] #### [facility] [address] [place] [address] [place] Cholesterol in HDL [Mass/Vol] 44 mg/dL Normal 40-60 [facility] Comment on above: Performed By: #### L [id number] #### [facility] [address] [place] [address] [place] Cholesterol in LDL [Mass/Vol] 121 mg/dL High <100 [facility] Comment on above: Performed By: #### L [id number] #### [facility] [address] [place] [address] US Triglyceride [Mass/Vol] 109 mg/dL Normal <150 [facility] Comment on above: Performed By: #### L [id number] #### [facility] [address] [place] [address] US THYROID STIMULATING HORMONE WITH FREE T4 REFLEXon 08-29-2021 TSH (ALINITY) 4.570 uIU/mL High 0.430-3.550 [facility] Comment on above: Performed By: #### L [id number] #### [place] [address] THYROXINE, FREE (FREE T4)on 08-29-2021 Free T4 [Mass/Vol] 0.85 ng/dL Normal 0.70-1.25 [facility] Comment on above: Performed By: #### L [id number] #### [place] [address] A1Con 02-20-2021 HbA1c (Bld) [Mass fraction] 6.1 % High 4.0-6.0 [facility] Comment on above: Performed By: #### P I, A1C, TSHR #### [facility] [address] [place] [address] BASIC METABOLIC PANELon 02-09 Anion gap [Moles/Vol] 4 mmol/L Low 5-19 [facility] Comment on above: Performed By: #### P I, A1C, TSHR #### [facility] [address] [place] [address] Calcium [Mass/Vol] 9.7 mg/dL Normal 8.4-10.2 [facility] Comment on above: Performed By: #### P I, A1C, TSHR #### [facility] [address] [place] [address] Chloride [Moles/Vol] 104 mmol/L Normal 98-107 [facility] Comment on above: Performed By: #### P I, A1C, TSHR #### [facility] [address] [place] [address] CO2 [Moles/Vol] 30 mmol/L Normal 22-30 [facility] Comment on above: Performed By: #### P I, A1C, TSHR #### [facility] [address] [place] [address] Creatinine [Mass/Vol] 0.80 mg/dL Normal 0.66-1.25 [facility] Comment on above: Performed By: #### P I, A1C, TSHR #### [facility] [address] [facility] [place] [address] eGFR AM. >60 Normal >60 [facility] Comment on above: Performed By: #### P I, A1C, TSHR #### [facility] [address] [facility] [place] [address] eGFR NON AM. >60 Normal >60 [facility] Comment on above: Performed By: #### P I, A1C, TSHR #### [facility] [address] [place] [address] Glucose [Mass/Vol] 84 mg/dL Normal 74-106 [facility] Comment on above: Performed By: #### P I, A1C, TSHR #### [facility] [address] [place] [address] Potassium [Moles/Vol] 4.6 mmol/L Normal 3.5-5.1 [facility] Comment on above: Performed By: #### P I, A1C, TSHR #### [facility] [address] [place] [address] Sodium [Moles/Vol] 138 mmol/L Normal 137-145 [facility] Comment on above: Performed By: #### P I, A1C, TSHR #### [facility] [address] [place] [address] Urea nitrogen [Mass/Vol] 20 mg/dL Normal 9-20 [facility] Comment on above: Performed By: #### P I, A1C, TSHR #### [facility] [address] [place] [address] Urea nitrogen/Creatinine [Mass ratio] 24.5 mg/mg High 6-20 [facility] Comment on above: Performed By: #### P I, A1C, TSHR #### [facility] [address] [place] [address] TSH WITH REFLEXon 10-12-2021 TSH Qn 4.430 m[IU]/L Normal 0.465-4.68 [facility] Comment on above: Performed By: #### A 1C, LPIP, ABC, TSH, MCMP, FRT4, ADIF #### [facility] [address] [place] [address] KNEE 3 VIEWS RIGHTon 021 KNEE 3 VIEWS RIGHT [id number] Signs/Symptoms: OFFICE VISIT//PAIN History: PAIN KNEE 3 VIEWS RIGHT CLINICAL HISTORY: PAIN. PT CO RIGHT KNEE PAIN AND INSTABILITY X 1 YR., TWISTING INJ 1 YR AGO. TECHNIQUE: 3 views of the right knee COMPARISON: None. FINDINGS: No fracture. No suspicious bone lesion. Normal alignment. No effusion. There is some small osteophyte formation of the patella with mild narrowing of the medial compartment. IMPRESSION: MILD OSTEOARTHRITIS. Approved By: Bryan Gordon Electronically Signed On: 11/02/2020 13:21 by: Bryan Gordon Order Number: [id number] Normal [facility] A1Con 10-23-2020 HbA1c (Bld) [Mass fraction] 6.7 % High 4.0-6.0 [facility] Comment on above: Performed By: #### A 1C, LPIP, ABC, TSH, MCMP, FRT4, ADIF #### [facility] [address] [place] [address] AUTOMATED BLOOD COUNTon 10-10 Erythrocyte distribution width (RBC) [Ratio] 13.7 % Normal 11.5-14.5 [facility] Comment on above: Performed By: #### A 1C, LPIP, ABC, TSH, MCMP, FRT4, ADIF #### [facility] [address] [place] [address] Hematocrit (Bld) [Volume fraction] 41.5 % Normal 39-55 [facility] Comment on above: Performed By: #### A 1C, LPIP, ABC, TSH, MCMP, FRT4, ADIF #### [facility] [address] [place] [address] Hemoglobin (Bld) [Mass/Vol] 14.3 g/dL Normal 13.9-16.3 [facility] Comment on above: Performed By: #### A 1C, LPIP, ABC, TSH, MCMP, FRT4, ADIF #### [facility] [address] [facility] [place] [address] MCH (RBC) [Entitic mass] 33.0 pg Normal 25.4-34.6 [facility] Comment on above: Performed By: #### A 1C, LPIP, ABC, TSH, MCMP, FRT4, ADIF #### [facility] [address] [facility] [place] [address] MCHC (RBC) [Mass/Vol] 34.5 g/dL Normal 30-37 [facility] Comment on above: Performed By: #### A 1C, LPIP, ABC, TSH, MCMP, FRT4, ADIF #### [facility] [address] [place] [address], [place] [address] MCV (RBC) [Entitic vol] 95.7 fL Normal 80-100 [facility] Comment on above: Performed By: #### A 1C, LPIP, ABC, TSH, MCMP, FRT4, ADIF #### [facility] [address] [place] [address], [place] [address] Platelets (Bld) [#/Vol] 244 10*3/uL Normal 130-400 [facility] Comment on above: Performed By: #### A 1C, LPIP, ABC, TSH, MCMP, FRT4, ADIF #### [facility] [address] [facility] [place] [address] RBC (Bld) [#/Vol] 4.33 10*6/uL Normal 4.3-5.9 [facility] Comment on above: Performed By: #### A 1C, LPIP, ABC, TSH, MCMP, FRT4, ADIF #### [facility] [address] [place] [address] WBC (Bld) [#/Vol] 7.1 10*3/uL Normal 4.5-11.5 [facility] Comment on above: Performed By: #### A 1C, LPIP, ABC, TSH, MCMP, FRT4, ADIF #### [facility] [address] [place] [address] COMP METABOLIC PANELon 10-23 Albumin [Mass/Vol] 3.8 g/dL Normal 3.5-5.0 [facility] Comment on above: Performed By: #### A 1C, LPIP, ABC, TSH, MCMP, FRT4, ADIF #### [facility] [address] [place] [address] Albumin/Globulin [Mass ratio] 1.2 {ratio} Low 1.5-2.5 [facility] Comment on above: Performed By: #### A 1C, LPIP, ABC, TSH, MCMP, FRT4, ADIF #### [facility] [address] [place] [address] ALK PHOS 84 U/L Normal 38-126 [facility] Comment on above: Performed By: #### A 1C, LPIP, ABC, TSH, MCMP, FRT4, ADIF #### [facility] [address] [place] [address] 22672 ALT [Catalytic activity/Vol] 42 U/L Normal <50 [facility] Comment on above: Performed By: #### A 1C, LPIP, ABC, TSH, MCMP, FRT4, ADIF #### [facility] [address] [place] [address] Anion gap [Moles/Vol] 9 mmol/L Normal 5-19 [facility] Comment on above: Performed By: #### A 1C, LPIP, ABC, TSH, MCMP, FRT4, ADIF #### [facility] [address] [place] [address] AST [Catalytic activity/Vol] 42 U/L Normal 17-59 [facility] Comment on above: Performed By: #### A 1C, LPIP, ABC, TSH, MCMP, FRT4, ADIF #### [facility] [address] [facility] [place] [address] Bilirubin [Mass/Vol] 0.7 mg/dL Normal 0.2-1.3 [facility] Comment on above: Performed By: #### A 1C, LPIP, ABC, TSH, MCMP, FRT4, ADIF #### [facility] [address] [place] [address] Calcium [Mass/Vol] 9.9 mg/dL Normal 8.4-10.2 [facility] Comment on above: Performed By: #### A 1C, LPIP, ABC, TSH, MCMP, FRT4, ADIF #### [facility] [address] [facility] [place] [address] Chloride [Moles/Vol] 101 mmol/L Normal 98-107 [facility] Comment on above: Performed By: #### A 1C, LPIP, ABC, TSH, MCMP, FRT4, ADIF #### [facility] [address] [place] [address]68 CO2 [Moles/Vol] 27 mmol/L Normal 22-30 [facility] Comment on above: Performed By: #### A 1C, LPIP, ABC, TSH, MCMP, FRT4, ADIF #### [facility] [address] [place] [address] Creatinine [Mass/Vol] 0.90 mg/dL Normal 0.66-1.25 [facility] Comment on above: Performed By: #### A 1C, LPIP, ABC, TSH, MCMP, FRT4, ADIF #### [facility] [address] [facility] [place] [address] eGFR AM. >60 Normal >60 [facility] Comment on above: Performed By: #### A 1C, LPIP, ABC, TSH, MCMP, FRT4, ADIF #### [facility] [address] [place] [address] eGFR NON AM. >60 Normal >60 [facility] Comment on above: Performed By: #### A 1C, LPIP, ABC, TSH, MCMP, FRT4, ADIF #### [facility] [address] [facility] [place] [address] Glucose [Mass/Vol] 102 mg/dL Normal 74-106 [facility] Comment on above: Performed By: #### A 1C, LPIP, ABC, TSH, MCMP, FRT4, ADIF #### [facility] [address] [facility] [place] [address] Potassium [Moles/Vol] 5.1 mmol/L Normal 3.5-5.1 [facility] Comment on above: Performed By: #### A 1C, LPIP, ABC, TSH, MCMP, FRT4, ADIF #### [facility] [address] [facility] [place] [address] Protein [Mass/Vol] 6.9 g/dL Normal 6.3-8.2 [facility] Comment on above: Performed By: #### A 1C, LPIP, ABC, TSH, MCMP, FRT4, ADIF #### [facility] [address] [facility] [place] [address] Sodium [Moles/Vol] 137 mmol/L Normal 137-145 [facility] Comment on above: Performed By: #### A 1C, LPIP, ABC, TSH, MCMP, FRT4, ADIF #### [facility] [address] [place] [address] Urea nitrogen [Mass/Vol] 21 mg/dL High 9-20 [facility] Comment on above: Performed By: #### A 1C, LPIP, ABC, TSH, MCMP, FRT4, ADIF #### [facility] [address] [facility] [place] [address] Urea nitrogen/Creatinine [Mass ratio] 22.7 mg/mg High 6-20 [facility] Comment on above: Performed By: #### A 1C, LPIP, ABC, TSH, MCMP, FRT4, ADIF #### [facility] [address] [facility] [place] [address] DIFFERENTIALon 10-23-2020 ABSOLUTE NEUTROPHILS DO NO 5.5 K/UL Normal 1.8-7.5 [facility] Comment on above: Performed By: #### A 1C, LPIP, ABC, TSH, MCMP, FRT4, ADIF #### [facility] [address] [place] [address] Basophils (Bld) [#/Vol] 0.0 10*3/uL Normal 0-0.2 [facility] Comment on above: Performed By: #### A 1C, LPIP, ABC, TSH, MCMP, FRT4, ADIF #### [facility] [address] [place] [address], [place] [address] Basophils/100 WBC (Bld) 0.6 % Normal 0.0-2.3 [facility] Comment on above: Performed By: #### A 1C, LPIP, ABC, TSH, MCMP, FRT4, ADIF #### [facility] [address] [place] [address], [place] [address] DIFF TYPE AUTO Normal [facility] Comment on above: Performed By: #### A 1C, LPIP, ABC, TSH, MCMP, FRT4, ADIF #### [facility] [address] [place] [address], [place] [address] Eosinophils (Bld) [#/Vol] 0.1 10*3/uL Normal 0-0.6 [facility] Comment on above: Performed By: #### A 1C, LPIP, ABC, TSH, MCMP, FRT4, ADIF #### [facility] [address] [place] [address], [place] [address] Eosinophils/100 WBC (Bld) 1.5 % Normal 0.1-4.5 [facility] Comment on above: Performed By: #### A 1C, LPIP, ABC, TSH, MCMP, FRT4, ADIF #### [facility] [address] [place] [address] Lymphocytes (Bld) [#/Vol] 0.9 10*3/uL Low 1.1-3.8 [facility] Comment on above: Performed By: #### A 1C, LPIP, ABC, TSH, MCMP, FRT4, ADIF #### [facility] [address] [facility] [place] [address] Lymphocytes/100 WBC (Bld) 12.4 % Low 18.5-46.9 [facility] Comment on above: Performed By: #### A 1C, LPIP, ABC, TSH, MCMP, FRT4, ADIF #### [facility] [address] [place] [address] Monocytes (Bld) [#/Vol] 0.5 10*3/uL Normal 0.1-0.8 [facility] Comment on above: Performed By: #### A 1C, LPIP, ABC, TSH, MCMP, FRT4, ADIF #### [facility] [address] [place] [address]59[address] Monocytes/100 WBC (Bld) 7.6 % Normal 4.2-12.4 [facility] Comment on above: Performed By: #### A 1C, LPIP, ABC, TSH, MCMP, FRT4, ADIF #### [facility] [address] [place] [address] Neutrophils/100 WBC (Bld) 77.9 % High 41.3-69.5 [facility] Comment on above: Performed By: #### A 1C, LPIP, ABC, TSH, MCMP, FRT4, ADIF #### [facility] [address] [place] [address] LIPID PANELon 10-23-2020 Cholesterol [Mass/Vol] 142 mg/dL Normal 0-200 [facility] Comment on above: Performed By: #### A 1C, LPIP, ABC, TSH, MCMP, FRT4, ADIF #### [facility] [address] [place] [address]1202 Cholesterol in HDL [Mass/Vol] 44 mg/dL Normal >40 [facility] Comment on above: Performed By: #### A 1C, LPIP, ABC, TSH, MCMP, FRT4, ADIF #### [facility] [address] [facility] [place] [address] Cholesterol in LDL [Mass/Vol] 80 mg/dL Normal <100 [facility] Comment on above: Performed By: #### A 1C, LPIP, ABC, TSH, MCMP, FRT4, ADIF #### [facility] [address] [place] [address] Triglyceride [Mass/Vol] 92 mg/dL Normal <150 [facility] Comment on above: Performed By: #### A 1C, LPIP, ABC, TSH, MCMP, FRT4, ADIF #### [facility] [address] [place] [address] T4,FREEon 10-23-2020 Free T4 [Mass/Vol] 1.09 ng/dL Normal 0.78-2.19 [facility] Comment on above: Performed By: #### A 1C, LPIP, ABC, TSH, MCMP, FRT4, ADIF #### [facility] [address] [place] [address] 369[address] TSH, 3RD GENERATIONon 2020 TSH, 3RD GENERATION 6.630 mIU/L High 0.465-4.68 [facility] Comment on above: Performed By: #### A 1C, LPIP, ABC, TSH, MCMP, FRT4, ADIF #### [facility] [address] [place] [address] 25872 LYPCRon 07-11-2019 Lyme CSF Source PLASMA [facility] Comment on above: Result Comment: Perf ormed By: [facility] [employer] [address] [place] [address] Vendor Management Consultant: Jose Ramon Rouse III#: [id number] Phone#: Performed By: #### L LOYDA HERRERAWB, LYPCR ####[facility] [place] [address] Lyme PCR NOT DETECTED [facility] Comment on above: Result Comment: (NOT E) NOT DETECTED - A negative result does not rule out the presence of PCR inhibitors in the patient specimen or assay specific nucleic acid in concentrations below the level of detection by the assay. INTERPRETIVE INFORMATION: Borrelia Species DNA Detection by PCR Test developed and characteristics determined by [employer]. See Compliance Statement B: [employer] Performed by [employer], [facility] [place] [address] [email or web address] Sebastian Bruce MD, Lab. Director Performed By: #### L LOYDA HERRERAWWm, LYPCR ####[address] [id number] .Auto Diffon 07-07-2019 Ammonia (P) [Mass/Vol] 0.50 10 3/mcL Normal 0.09-1.40 [facility] ([place]) Comment on above: Performed By: #### B UN, CRE, GFR #### [address] [address] Basophils (Bld) [#/Vol] 0.00 10 3/mcL Normal 0.00-0.27 [facility] ([place] Comment on above: Performed By: #### B UN, CRE, GFR #### [address] [address] Basophils/100 WBC (Bld) 0.1 % Normal 0.0-2.5 A [facility] ([place]) Comment on above: Performed By: #### B UN, CRE, GFR #### [address] [address] Eosinophils (Bld) [#/Vol] 0.10 10 3/mcL Normal 0.00-0.65 [facility] ([place] Comment on above: Performed By: #### B UN, CRE, GFR #### [address] [address] Eosinophils/100 WBC (Bld) 2.5 % Normal 0.0-6.0 [facility] ([place] Comment on above: Performed By: #### B UN, CRE, GFR #### [address] [address] Lymphocytes (Bld) [#/Vol] 0.90 10 3/mcL Normal 0.90-4.32 [facility] [place] Comment [place]: Performed By: #### B UN, CRE, GFR #### [address] [address] Lymphocytes/100 WBC (Bld) 17.1 % Low 20.0-40.0 [facility] [place] Comment [place] above: Performed By: #### B UN, CRE, GFR #### [address] [address] Monocytes/100 WBC (Bld) 9.6 % Normal 2.0-13.0 A [facility] ([place] Comment on above: Performed By: #### B UN, CRE, GFR #### [address] [address] Neutrophils/100 WBC (Bld) 70.7 % Normal 50.0-75.0 [facility] [place] Comment on above: Performed By: #### B UN, CRE, GFR #### [address] [address] .GFRon 07-07-2019 GFR >60 Normal [facility] ([place]) Comment on above: Result Comment: GFR Population mean for , Non- Americans Ages 20-29 = 116 mL/min/1.73 sq.m. Ages 30-39 = 107 mL/min/1.73 sq.m. Ages 40-49 = 99 mL/min/1.73 sq.m. Ages 50-59 = 93 mL/min/1.73 sq.m. Ages 60-69 = 85 mL/min/1.73 sq.m. Ages 70+ = 75 mL/min/1.73 sq.m. Chronic Kidney Disease: Less than 60 mL/min/1.73 square meters End Stage Renal Disease: Less than 15 mL/min/1.73 square meters Performed By: #### B UN, CRE, GFR #### [address] [address] GFR Non- >60 Normal [facility] [place] Comment on above: Result Comment: GFR Population mean for , Non- Americans Ages 20-29 = 116 mL/min/1.73 sq.m. Ages 30-39 = 107 mL/min/1.73 sq.m. Ages 40-49 = 99 mL/min/1.73 sq.m. Ages 50-59 = 93 mL/min/1.73 sq.m. Ages 60-69 = 85 mL/min/1.73 sq.m. Ages 70+ = 75 mL/min/1.73 sq.m. Chronic Kidney Disease: Less than 60 mL/min/1.73 square meters End Stage Renal Disease: Less than 15 mL/min/1.73 square meters Performed By: #### B UN, CRE, GFR #### [address] [address] .NEUABSon 07-07-2019 Neutrophils (Bld) [#/Vol] 3.60 10 3/mcL Normal 2.25-8.10 [facility] [place] Comment on above: Performed By: #### B UN, CRE, GFR #### [address] [address] BMPon 07-07-2019 Creatinine [Mass/Vol] 1.05 mg/dL Normal 0.60-1.40 [facility] ([place]) Comment on above: Performed By: #### B UN, CRE, GFR #### [place] [address] Urea nitrogen/Creatinine [Mass ratio] 20.0 ratio Normal 10.0-22.0 [facility] [place] Comment on above: Performed By: #### B UN, CRE, GFR #### [address] [address] Calcium [Mass/Vol] 8.8 mg/dL Normal 8.4-10.1 [facility] ([place]) Comment on above: Performed By: #### B UN, CRE, GFR #### [address] [address] Chloride [Moles/Vol] 105 mmol/L Normal 98-110 [facility] ([place]) Comment on above: Performed By: #### B UN, CRE, GFR #### [address] [address] CO2 [Moles/Vol] 27 mmol/L Normal 22-32 [facility] [place] Comment on above: Performed By: #### B UN, CRE, GFR #### [address] [address] Electrolyte Balance 6.0 mEq/L Normal 4.0-15.0 [facility] ([place]) Comment on above: Performed By: #### B UN, CRE, GFR #### [address] [address] Glucose [Mass/Vol] 107 mg/dL Normal 82-115 [facility] ([place]) Comment on above: Performed By: #### B UN, CRE, GFR #### [address] [address] Potassium [Moles/Vol] 4.2 mmol/L Normal 3.5-5.0 [facility] ([place]) Comment on above: Performed By: #### B UN, CRE, GFR #### [place] [id number] Sodium [Moles/Vol] 138 mmol/L Normal 136-145 [facility] ([place]) Comment on above: Performed By: #### B UN, CRE, GFR #### [address] [address] Urea nitrogen [Mass/Vol] 21.0 mg/dL Normal 8.0-22.0 [facility] [place] Comment on above: Performed By: #### B UN, CRE, GFR #### [address] [address] CBCon 07-07-2019 Erythrocyte distribution width (RBC) [Ratio] 13.9 % Normal 11.5-15.5 [facility] [place] Comment on above: Performed By: #### B UN, CRE, GFR #### [address] [address] Hematocrit (Bld) [Volume fraction] 40.0 % Normal 40.0-52.0 [facility] [place] Comment on above: Performed By: #### B UN, CRE, GFR #### [place] [id number] Hemoglobin (Bld) [Mass/Vol] 13.8 G/dL Normal 13.0-17.5 [facility] [place] Comment on above: Performed By: #### B UN, CRE, GFR #### [address] [address] MCH (RBC) [Entitic mass] 33.7 pg High 27.0-33.0 [facility] [place] Comment on above: Performed By: #### B UN, CRE, GFR #### [address] [address] MCHC (RBC) [Mass/Vol] 34.5 G/dL Normal 32.0-36.0 [facility] ([place]) Comment on above: Performed By: #### B UN, CRE, GFR #### [place] [id number] MCV (RBC) [Entitic vol] 97.6 fL Normal 81.0-100.0 A [facility] ([place] Comment on above: Performed By: #### B UN, CRE, GFR #### [place] [id number] Platelet mean volume (Bld) [Entitic vol] 7.9 fL Normal 6.4-10.5 [facility] [place] Comment on above: Performed By: #### B UN, CRE, GFR #### [address] [address] Platelets (Bld) [#/Vol] 168 10 3/mcL Normal 150-450 [facility] [place] Comment on above: Performed By: #### B UN, CRE, GFR #### [address] [address] RBC (Bld) [#/Vol] 4.10 10 6/mcL Low 4.50-6.00 [facility] ([place]) Comment on above: Performed By: #### B UN, CRE, GFR #### [place] [id number] WBC (Bld) [#/Vol] 5.10 10 3/mcL Normal 4.50-10.80 [facility] ([place]) Comment on above: Performed By: #### B UN, CRE, GFR #### [address] [address] LMERLYon 07-07-2019 [facility] Comment [place] above: Result Comment: Pres ence of detectable Borrelia burgdorferi antibodies. Current testing guidelines recommend that all positive results be supplemented by further testing in a standardized Western Blot assay. Lyme Western Blot confirmation test has been ordered and billed. Performed By: [facility] [employer] [address] [place] [address] Vendor Management Consultant: Robin Delgado III, M.D. CLIA#: [id number] Phone#: Performed By: #### MARYCARMEN CLARK, LYPCR ####[place] [address] LYMEWBon 07-07-2019 Lyme IgG Bands p45,p41,p23,p18 Normal [facility] ([place]) Comment on above: Result Comment: CDC criteria for a positive Western blot are the presence of >= 5 bands for IgG. Performed By: [facility] [employer] [address] [place] [address] Vendor Management Consultant: Robin Delgado III, M.D. CLIA#: [id number] Phone#: Performed By: #### MARYCARMEN CLARK, LYPCR ####[address] [address] Lyme IgG Western Blot Negative Normal [facility] ([place]) Comment on above: Result Comment: Perf ormed By: [facility] [employer] [address] [place] [address] Vendor Management Consultant: Robin Delgado III, M.D. CLIA#: [id number] Phone#: Performed By: #### LOYDA CLARKWB, LYPCR ####[address] [address] Lyme IgM Bands p41,p23 Normal [facility] ([place] Comment on above: Result Comment: CDC criteria for a positive Western blot are the presence of >= 2 bands for IgM. Performed By: [facility] [employer] [facility] [place] [address] Vendor Management Consultant: Robin Delgado III, M.D. CLIA#: [id number] Phone#: Performed By: #### MARYCARMEN CLARK, LYPCR ####[address] [address] Lyme IgM Western Blot Positive NEGAT [facility] ([place]) Comment on above: Result Comment: Perf ormed By: [facility] [employer] [address] [place] [address] Vendor Management Consultant: Robin Delgado III, M.D. CLIA#: [id number] Phone#: Performed By: #### MARYCARMEN CLARK, LYPCR ####[address] [address] Lyme Interpretation See Below Normal [facility] ([place]) Comment on above: Result Comment: IgM antibodies against Borrelia burgdorferi are present on Western Blot, but IgG antibodies were not detected. This pattern can be seen in the early stages of infection with Borrelia burgdorferi. However, this pattern could also be caused by a false-positive result in the IgM Western blot, particularly if there is no history of recent exposure. If clinically indicated, a repeat serology in 4-6 weeks to evaluate patient for the development of IgG antibodies may be helpful. Clinical correlation is necessary. Current Lyme IgG immunoblot banding pattern and intensity does not meet CDC criteria or vice president risk management. Faint diagnostic bands were observed suggestive of either recent B. burgdorferi infection treated very early OR remote past B. burgdorferi infection. Send out to a reference laboratory may be needed should there be a suspicion of Lyme disease acquisition in [place]. Clinical and epidemiological correlation required. Performed By: [facility] [employer] [facility] [place] [address] Vendor Management Consultant: Robin Delgado III, M.D. CLIA#: [id number] Phone#: Performed By: #### MARYCARMEN CLARK, LYPCR ####[address] [address] MGon 07-07-2019 Magnesium [Mass/Vol] 2.3 mg/dL Normal 1.6-2.4 [facility] ([place]) Comment on above: Performed By: #### B UN, CRE, GFR #### [address] [address] .Auto Diffon 07-06-2019 Ammonia (P) [Mass/Vol] 0.50 10 3/mcL Normal 0.09-1.40 [facility] ([place] Comment on above: Performed By: #### B UN, CRE, GFR #### [address] [address] Basophils (Bld) [#/Vol] 0.00 10 3/mcL Normal 0.00-0.27 [facility] [place] Comment on above: Performed By: #### B UN, CRE, GFR #### [address] [address] Basophils/100 WBC (Bld) 0.6 % Normal 0.0-2.5 A [facility] ([place] Comment on above: Performed By: #### B UN, CRE, GFR #### [address] [address] Eosinophils (Bld) [#/Vol] 0.10 10 3/mcL Normal 0.00-0.65 [facility] ([place] Comment on above: Performed By: #### B UN, CRE, GFR #### [address] [address] Eosinophils/100 WBC (Bld) 2.1 % Normal 0.0-6.0 [facility] ([place] Comment on above: Performed By: #### B UN, CRE, GFR #### [address] [address] Lymphocytes (Bld) [#/Vol] 0.90 10 3/mcL Normal 0.90-4.32 [facility] ([place] Comment on above: Performed By: #### B UN, CRE, GFR #### [address] [address] Lymphocytes/100 WBC (Bld) 22.6 % Normal 20.0-40.0 [facility] [place] Comment on above: Performed By: #### B UN, CRE, GFR #### [address] [address] Monocytes/100 WBC (Bld) 11.6 % Normal 2.0-13.0 A [facility] ([place] Comment on above: Performed By: #### B UN, CRE, GFR #### [address] [address] Neutrophils/100 WBC (Bld) 63.1 % Normal 50.0-75.0 [facility] [place] Comment on above: Performed By: #### B UN, CRE, GFR #### [address] [address] .GFRon 07-06-2019 GFR Non- >60 Normal [facility] ([place] Comment on above: Result Comment: GFR Population mean for , Non- Americans Ages 20-29 = 116 mL/min/1.73 sq.m. Ages 30-39 = 107 mL/min/1.73 sq.m. Ages 40-49 = 99 mL/min/1.73 sq.m. Ages 50-59 = 93 mL/min/1.73 sq.m. Ages 60-69 = 85 mL/min/1.73 sq.m. Ages 70+ = 75 mL/min/1.73 sq.m. Chronic Kidney Disease: Less than 60 mL/min/1.73 square meters End Stage Renal Disease: Less than 15 mL/min/1.73 square meters Performed By: #### B UN, CRE, GFR #### [address] [address] GFR >60 Normal [facility] ([place]) Comment on above: Result Comment: GFR Population mean for , Non- Americans Ages 20-29 = 116 mL/min/1.73 sq.m. Ages 30-39 = 107 mL/min/1.73 sq.m. Ages 40-49 = 99 mL/min/1.73 sq.m. Ages 50-59 = 93 mL/min/1.73 sq.m. Ages 60-69 = 85 mL/min/1.73 sq.m. Ages 70+ = 75 mL/min/1.73 sq.m. Chronic Kidney Disease: Less than 60 mL/min/1.73 square meters End Stage Renal Disease: Less than 15 mL/min/1.73 square meters Performed By: #### B UN, CRE, GFR #### [place] [address] .NEUABSon 07-06-2019 Neutrophils (Bld) [#/Vol] 2.60 10 3/mcL Normal 2.25-8.10 [facility] [place] Comment on above: Performed By: #### B UN, CRE, GFR #### [place] [address] A1Con 07-06-2019 HbA1c (Bld) [Mass fraction] 5.9 % Normal 4.0-6.0 [facility] ([place] Comment on above: Performed By: #### B UN, CRE, GFR #### [place] [address] APTTon 07-06-2019 aPTT Coag (Bld) [Time] 53.7 s High 25.0-35.0 [facility] ([place]) Comment on above: Result Comment: For Heparin anticoagulation therapy, the recommended therapeutic range is: 54-77 seconds (APTT Correlation with Anti-Xa therapeutic range of 0.3-0.7 units/ml). PLEASE REFERENCE THE PHARMACY PROTOCOL FOR DOSING. Performed By: #### B UN, CRE, GFR #### [place] [address] aPTT Coag (Bld) [Time] Heparin IV Normal [facility] ([place]) Comment on above: Performed By: #### B UN, CRE, GFR #### [place] [address] aPTT Coag (Bld) [Time] 61.5 s High 25.0-35.0 [facility] ([place]) Comment on above: Result Comment: For Heparin anticoagulation therapy, the recommended therapeutic range is: 54-77 seconds (APTT Correlation with Anti-Xa therapeutic range of 0.3-0.7 units/ml). PLEASE REFERENCE THE PHARMACY PROTOCOL FOR DOSING. Performed By: #### B UN, CRE, GFR #### [address] [address] aPTT Coag (Bld) [Time] Heparin IV Normal [facility] ([place]) Comment on above: Performed By: #### B UN, CRE, GFR #### [place] [id number] aPTT Coag (Bld) [Time] Heparin IV Normal [facility] ([place]) Comment on above: Performed By: #### B UN, CRE, GFR #### [place] [id number] aPTT Coag (Bld) [Time] 62.6 s High 25.0-35.0 [facility] ([place]) Comment on above: Result Comment: For Heparin anticoagulation therapy, the recommended therapeutic range is: 54-77 seconds (APTT Correlation with Anti-Xa therapeutic range of 0.3-0.7 units/ml). PLEASE REFERENCE THE PHARMACY PROTOCOL FOR DOSING. Performed By: #### B UN, CRE, GFR #### [address] [address] BMPon 07-06-2019 Calcium [Mass/Vol] 8.8 mg/dL Normal 8.4-10.1 [facility] ([place]) Comment on above: Performed By: #### B UN, CRE, GFR #### [place] [id number] Chloride [Moles/Vol] 106 mmol/L Normal 98-110 [facility] ([place]) Comment on above: Performed By: #### B UN, CRE, GFR #### [address] [address] CO2 [Moles/Vol] 25 mmol/L Normal 22-32 [facility] ([place] Comment on above: Performed By: #### B UN, CRE, GFR #### [place] [id number] Creatinine [Mass/Vol] 1.00 mg/dL Normal 0.60-1.40 [facility] ([place]) Comment on above: Performed By: #### B UN, CRE, GFR #### [place] [id number] Electrolyte Balance 7.0 mEq/L Normal 4.0-15.0 [facility] ([place]) Comment on above: Performed By: #### B UN, CRE, GFR #### [address] [address] Glucose [Mass/Vol] 105 mg/dL Normal 82-115 [facility] ([place]) Comment on above: Performed By: #### B UN, CRE, GFR #### [address] [address] Potassium [Moles/Vol] 4.1 mmol/L Normal 3.5-5.0 [facility] ([place]) Comment on above: Performed By: #### B UN, CRE, GFR #### [address] [address] Sodium [Moles/Vol] 138 mmol/L Normal 136-145 [facility] ([place]) Comment on above: Performed By: #### B UN, CRE, GFR #### [address] [address] Urea nitrogen [Mass/Vol] 21.0 mg/dL Normal 8.0-22.0 [facility] ([place] Comment on above: Performed By: #### B UN, CRE, GFR #### [address] [address] Urea nitrogen/Creatinine [Mass ratio] 21.0 ratio Normal 10.0-22.0 [facility] ([place] Comment on above: Performed By: #### B UN, CRE, GFR #### [address] [address] CBCon 07-06-2019 Erythrocyte distribution width (RBC) [Ratio] 14.2 % Normal 11.5-15.5 [facility] [place] Comment on above: Performed By: #### B UN, CRE, GFR #### [address] [address] Hematocrit (Bld) [Volume fraction] 41.6 % Normal 40.0-52.0 [facility] ([place] Comment on above: Performed By: #### B UN, CRE, GFR #### [address] [address] Hemoglobin (Bld) [Mass/Vol] 14.4 G/dL Normal 13.0-17.5 [facility] ([place] Comment on above: Performed By: #### B UN, CRE, GFR #### [address] [address] MCH (RBC) [Entitic mass] 33.5 pg High 27.0-33.0 [facility] ([place] Comment on above: Performed By: #### B UN, CRE, GFR #### [address] [address] MCHC (RBC) [Mass/Vol] 34.7 G/dL Normal 32.0-36.0 [facility] ([place]) Comment on above: Performed By: #### B UN, CRE, GFR #### [address] [address] MCV (RBC) [Entitic vol] 96.7 fL Normal 81.0-100.0 [facility] ([place]) Comment on above: Performed By: #### B UN, CRE, GFR #### [address] [address] Platelet mean volume (Bld) [Entitic vol] 7.8 fL Normal 6.4-10.5 [facility] ([place] Comment on above: Performed By: #### B UN, CRE, GFR #### [address] [address] Platelets (Bld) [#/Vol] 167 10 3/mcL Normal 150-450 [facility] ([place] Comment on above: Performed By: #### B UN, CRE, GFR #### [address] [address] RBC (Bld) [#/Vol] 4.31 10 6/mcL Low 4.50-6.00 [facility] ([place]) Comment on above: Performed By: #### B UN, CRE, GFR #### [address] [address] WBC (Bld) [#/Vol] 4.20 10 3/mcL Low 4.50-10.80 [facility] ([place]) Comment on above: Performed By: #### B UN, CRE, GFR #### [place] [address] LIPIDon 07-06-2019 Cholesterol in HDL [Mass/Vol] 67 mg/dL High 40-59 [facility] ([place] Comment on above: Result Comment: HDL Reference Interval: Less than 40 Low - high risk 60 or above Optimal/lowers risk Performed By: #### B UN, CRE, GFR #### [place] [address] Cholesterol in LDL [Mass/Vol] 112 mg/dL Normal 0-129 [facility] ([place] Comment on above: Result Comment: LDL is a calculated result and requires a 12-hr fast. LDL Reference Interval: Less than 100 Optimal 100-129 Near or above optimal 130-159 Borderline high risk 160-189 High risk 190 and above Very high risk Performed By: #### B UN, CRE, GFR #### [place] [address] Cholesterol [Mass/Vol] 192 mg/dL Normal 50-199 [facility] ([place]) Comment on above: Result Comment: Chol esterol Reference Interval: Less than 200 Desirable 200-239 Borderline high risk 240 and above High risk Performed By: #### B UN, CRE, GFR #### [place] [address] Triglyceride [Mass/Vol] 63 mg/dL Normal 3-149 A [facility] ([place] Comment on above: Result Comment: Trig lyceride Reference Interval: Less than 150 Normal 150-199 Borderline high risk 200-499 High risk 500 or higher Very high risk Performed By: #### B UN, CRE, GFR #### [place] [id number] .Auto Diffon 07-05-2019 Ammonia (P) [Mass/Vol] 0.50 10 3/mcL Normal 0.09-1.40 [facility] ([place] Comment on above: Performed By: #### C BC, ADIFF, ANEU, BMP, GFR, FIB, APTT, PRO #### [facility] [address] [place], [place] [address] Basophils (Bld) [#/Vol] 0.00 10 3/mcL Normal 0.00-0.27 [facility] ([place] Comment on above: Performed By: #### C BC, ADIFF, ANEU, BMP, GFR, FIB, APTT, PRO #### [address] [address] Basophils/100 WBC (Bld) 1.1 % Normal 0.0-2.5 A [facility] ([place]) Comment on above: Performed By: #### C BC, ADIFF, ANEU, BMP, GFR, FIB, APTT, PRO #### [address] [address] Eosinophils (Bld) [#/Vol] 0.00 10 3/mcL Normal 0.00-0.65 [facility] ([place] Comment on above: Performed By: #### C BC, ADIFF, ANEU, BMP, GFR, FIB, APTT, PRO #### [address] [address] Eosinophils/100 WBC (Bld) 0.6 % Normal 0.0-6.0 [facility] ([place] Comment on above: Performed By: #### C BC, ADIFF, ANEU, BMP, GFR, FIB, APTT, PRO #### [address] [address] Lymphocytes (Bld) [#/Vol] 0.60 10 3/mcL Low 0.90-4.32 [facility] ([place] Comment on above: Performed By: #### C BC, ADIFF, ANEU, BMP, GFR, FIB, APTT, PRO #### [address] [address] Lymphocytes/100 WBC (Bld) 17.8 % Low 20.0-40.0 [facility] ([place] Comment on above: Performed By: #### C BC, ADIFF, ANEU, BMP, GFR, FIB, APTT, PRO #### [address] [address] Monocytes/100 WBC (Bld) 14.0 % High 2.0-13.0 A [facility] ([place] Comment on above: Performed By: #### C BC, ADIFF, ANEU, BMP, GFR, FIB, APTT, PRO #### [address] [address] Neutrophils/100 WBC (Bld) 66.5 % Normal 50.0-75.0 [facility] ([place] Comment on above: Performed By: #### C BC, ADIFF, ANEU, BMP, GFR, FIB, APTT, PRO #### [address] [address] .GFRon 07-05-2019 GFR >60 Normal [facility] ([place]) Comment on above: Result Comment: GFR Population mean for , Non- Americans Ages 20-29 = 116 mL/min/1.73 sq.m. Ages 30-39 = 107 mL/min/1.73 sq.m. Ages 40-49 = 99 mL/min/1.73 sq.m. Ages 50-59 = 93 mL/min/1.73 sq.m. Ages 60-69 = 85 mL/min/1.73 sq.m. Ages 70+ = 75 mL/min/1.73 sq.m. Chronic Kidney Disease: Less than 60 mL/min/1.73 square meters End Stage Renal Disease: Less than 15 mL/min/1.73 square meters Performed By: #### C BC, ADIFF, ANEU, BMP, GFR, FIB, APTT, PRO #### [address] [address] GFR Non- >60 Normal [facility] ([place] Comment on above: Result Comment: GFR Population mean for , Non- Americans Ages 20-29 = 116 mL/min/1.73 sq.m. Ages 30-39 = 107 mL/min/1.73 sq.m. Ages 40-49 = 99 mL/min/1.73 sq.m. Ages 50-59 = 93 mL/min/1.73 sq.m. Ages 60-69 = 85 mL/min/1.73 sq.m. Ages 70+ = 75 mL/min/1.73 sq.m. Chronic Kidney Disease: Less than 60 mL/min/1.73 square meters End Stage Renal Disease: Less than 15 mL/min/1.73 square meters Performed By: #### C BC, ADIFF, ANEU, BMP, GFR, FIB, APTT, PRO #### [place] [address] .NEUABSon 07-05-2019 Neutrophils (Bld) [#/Vol] 2.40 10 3/mcL Normal 2.25-8.10 [facility] [place] Comment on above: Performed By: #### C BC, ADIFF, ANEU, BMP, GFR, FIB, APTT, PRO #### [place] [address] APTTon 07-05-2019 aPTT Coag (Bld) [Time] 69.1 s High 25.0-35.0 [facility] ([place]) Comment on above: Result Comment: For Heparin anticoagulation therapy, the recommended therapeutic range is: 54-77 seconds (APTT Correlation with Anti-Xa therapeutic range of 0.3-0.7 units/ml). PLEASE REFERENCE THE PHARMACY PROTOCOL FOR DOSING. Performed By: #### B UN, CRE, GFR #### [place] [address] aPTT Coag (Bld) [Time] Heparin IV Normal [facility] ([place]) Comment on above: Performed By: #### B UN, CRE, GFR #### [place] [address] aPTT Coag (Bld) [Time] Unknown Normal [facility] ([place]) Comment on above: Performed By: #### B UN, CRE, GFR #### [place] [address] aPTT Coag (Bld) [Time] 29.1 s Normal 25.0-35.0 [facility] ([place]) Comment on above: Result Comment: For Heparin anticoagulation therapy, the recommended therapeutic range is: 54-77 seconds (APTT Correlation with Anti-Xa therapeutic range of 0.3-0.7 units/ml). PLEASE REFERENCE THE PHARMACY PROTOCOL FOR DOSING. Performed By: #### B UN, CRE, GFR #### [place] [address] BMPon 07-05-2019 Creatinine [Mass/Vol] 1.05 mg/dL Normal 0.60-1.40 [facility] ([place]) Comment on above: Performed By: #### C BC, ADIFF, ANEU, BMP, GFR, FIB, APTT, PRO #### [place] [address] Urea nitrogen/Creatinine [Mass ratio] 21.0 ratio Normal 10.0-22.0 [facility] ([place] Comment on above: Performed By: #### C BC, ADIFF, ANEU, BMP, GFR, FIB, APTT, PRO #### [place] [id number] Calcium [Mass/Vol] 9.1 mg/dL Normal 8.4-10.1 [facility] ([place] Comment on above: Performed By: #### C BC, ADIFF, ANEU, BMP, GFR, FIB, APTT, PRO #### [place] [id number] Chloride [Moles/Vol] 106 mmol/L Normal 98-110 [facility] ([place]) Comment on above: Performed By: #### C BC, ADIFF, ANEU, BMP, GFR, FIB, APTT, PRO #### [place] [id number] CO2 [Moles/Vol] 29 mmol/L Normal 22-32 [facility] ([place] Comment on above: Performed By: #### C BC, ADIFF, ANEU, BMP, GFR, FIB, APTT, PRO #### [place] [address] Electrolyte Balance 4.0 mEq/L Normal 4.0-15.0 [facility] ([place]) Comment on above: Performed By: #### C BC, ADIFF, ANEU, BMP, GFR, FIB, APTT, PRO #### [place] [id number] Glucose [Mass/Vol] 110 mg/dL Normal 82-115 [facility] ([place]) Comment on above: Performed By: #### C BC, ADIFF, ANEU, BMP, GFR, FIB, APTT, PRO #### [address] [address] Potassium [Moles/Vol] 4.8 mmol/L Normal 3.5-5.0 [facility] ([place]) Comment on above: Performed By: #### C BC, ADIFF, ANEU, BMP, GFR, FIB, APTT, PRO #### [place] [id number] Sodium [Moles/Vol] 139 mmol/L Normal 136-145 [facility] ([place]) Comment on above: Performed By: #### C BC, ADIFF, ANEU, BMP, GFR, FIB, APTT, PRO #### [place] [id number] Urea nitrogen [Mass/Vol] 22.0 mg/dL Normal 8.0-22.0 [facility] ([place]) Comment on above: Performed By: #### C BC, ADIFF, ANEU, BMP, GFR, FIB, APTT, PRO #### [place] [id number] CBCon 07-05-2019 Erythrocyte distribution width (RBC) [Ratio] 14.2 % Normal 11.5-15.5 [facility] ([place]) Comment on above: Performed By: #### C BC, ADIFF, ANEU, BMP, GFR, FIB, APTT, PRO #### [place] [id number] Hematocrit (Bld) [Volume fraction] 44.2 % Normal 40.0-52.0 [facility] ([place]) Comment on above: Performed By: #### C BC, ADIFF, ANEU, BMP, GFR, FIB, APTT, PRO #### [place] [id number] Hemoglobin (Bld) [Mass/Vol] 14.9 G/dL Normal 13.0-17.5 [facility] ([place]) Comment on above: Performed By: #### C BC, ADIFF, ANEU, BMP, GFR, FIB, APTT, PRO #### [place] [id number] MCH (RBC) [Entitic mass] 32.9 pg Normal 27.0-33.0 [facility] ([place]) Comment on above: Performed By: #### C BC, ADIFF, ANEU, BMP, GFR, FIB, APTT, PRO #### [address] [address] MCHC (RBC) [Mass/Vol] 33.6 G/dL Normal 32.0-36.0 [facility] ([place]) Comment on above: Performed By: #### C BC, ADIFF, ANEU, BMP, GFR, FIB, APTT, PRO #### [address] [address] MCV (RBC) [Entitic vol] 97.8 fL Normal 81.0-100.0 A [facility] ([place]) Comment on above: Performed By: #### C BC, ADIFF, ANEU, BMP, GFR, FIB, APTT, PRO #### [place] [id number] Platelet mean volume (Bld) [Entitic vol] 7.7 fL Normal 6.4-10.5 [facility] ([place]) Comment on above: Performed By: #### C BC, ADIFF, ANEU, BMP, GFR, FIB, APTT, PRO #### [address] [address] Platelets (Bld) [#/Vol] 178 10 3/mcL Normal 150-450 [facility] ([place]) Comment on above: Performed By: #### C BC, ADIFF, ANEU, BMP, GFR, FIB, APTT, PRO #### [address] [address] RBC (Bld) [#/Vol] 4.52 10 6/mcL Normal 4.50-6.00 [facility] ([place]) Comment on above: Performed By: #### C BC, ADIFF, ANEU, BMP, GFR, FIB, APTT, PRO #### [address] [address] WBC (Bld) [#/Vol] 3.50 10 3/mcL Low 4.50-10.80 [facility] ([place]) Comment on above: Performed By: #### C BC, ADIFF, ANEU, BMP, GFR, FIB, APTT, PRO #### [place] [id number] FIBon 07-05-2019 Fibrinogen 452 mg/dL Normal 250-550 [facility] ([place]) Comment on above: Performed By: #### C BC, ADIFF, ANEU, BMP, GFR, FIB, APTT, PRO #### [place] [address] PROon 07-05-2019 INR Coag (PPP) [Relative time] 0.9 {INR} Normal [facility] ([place]) Comment on above: Result Comment: The [employer] (CHEST, 1992, 102:312S-25S) recommended therapeutic range for oral anticoagulant therapy is: LOW RISK: Prophylaxis of venous thrombosis INR: 2.0-3.0 Treatment of pulmonary embolism 2.0-3.0 Prevention of systemic embolism 2.0-3.0 HIGH RISK: Mechanical prosthetic valves 2.5-3.5 Performed By: #### B UN, CRE, GFR #### [place] [address] PT Coag (PPP) [Time] 10.8 s Normal 9.0-14.6 [facility] ([place]) Comment on above: Result Comment: Effe ctive 11/24/07, Protime results may be affected by some antibiotics (i.e. Ciprofloxacin, Azithromycin, Bactrim) which may potentiate the action of oral anticoagulants, with further increases in Protime/INR. Performed By: #### B UN, CRE, GFR #### [place] [address] XR ESOPHOGRAM W/BARIUM TABLE Ton 07-05-2019 XR ESOPHOGRAM W/BARIUM TABLET ORIGINAL XR ESOPHOGRAM W/BARIUM TABLET CLINICAL STATEMENT: dysphagia, needs WINSTON. COMPARISON: None FINDINGS: 3.2 minutes fluoroscopy time. 146.416 milligray dose. 46 digital images were obtained. The procedure was performed by Olivia Nicole, Physician Wire Coating Machine Operator. There is some spillage of barium into the vallecula prior to swallowing. Swallowing appears normal and there is no tracheal aspiration seen. There is a prominent cricopharyngeus indentation at the posterior aspect of the hypopharynx. There are scattered tertiary waves identified. No esophageal ulceration or mass is identified. There is a small sliding hiatal hernia present. There is a prominent associated mucosal ring. The barium tablet holds up in this area inside of passing directly into the hernia. Mild gastroesophageal reflux is identified. IMPRESSION: 1. Small sliding hiatal hernia. Associated mucosal ring hindering transit of the barium tablet. 2. Scattered tertiary waves. 3. No esophageal ulceration or mass seen. 4. Mild reflux without evidence for esophagitis. Interpreted By: Odalys Christianson MD Preliminary Report By: Odalys Christianson MD Electronically Signed By: Odalys Christianson MD Dictated Date: 07/05/2019 2:56:58 PM Prelim Date: 07/05/2019 2:56:58 PM Sign Date: 07/05/2019 3:00:01 PM Ordering Provider:Jann Cotton [facility] ([place]) CT ANGIOGRAPHY NECK W/CONTRA STon 05-31-2019 CT ANGIOGRAPHY NECK W/CONTRAST ORIGINAL CT angiogram of the neck, 05/30/2019 1:45 PM INDICATION: BILAT CAROTID STENOSIS COMPARISON:No Technique: Axial CT angiogram of the neck following uncomplicated administration of intravenous contrast, with 3-D post acquisition processing and with results displayed in source images, rotational reconstructions centered on the carotid bifurcations and in maximum intensity projection. Percent stenosis is calculated using NASCET criteria. This exam was performed according to our departmental dose optimization program, and includes the following measures where applicable: automated exposure control, adjustment of the mAs and/or kVp according to patient size and/or exam, and an iterative reconstruction algorithm. FINDINGS:There are minimal atherosclerotic changes to the proximal RIGHT internal carotid artery, mainly calcified plaque. There is no hemodynamically significant stenosis of the RIGHT internal carotid artery. There are atherosclerotic changes to the LEFT distal common and proximal internal carotid artery, mixture of calcified and noncalcified plaque. Severe stenosis at the level of the distal bulb, approximately 75%. This may be slightly underestimated; the more distal LEFT internal carotid tree is less robust than its RIGHT counterpart, possibly due to proximal stenosis. The LEFT vertebral artery is dominant. Both vertebral arteries are visualized from origin through skull base. IMPRESSION: 1. Severe stenosis of the proximal LEFT internal carotid artery, measured here at 75% but likely underestimated due to diminished flow in the more distal artery. 2. Minimal atherosclerotic changes on the RIGHT, without stenosis. Interpreted By: Allison Izaguirre MD Preliminary Report By: Allison Izaguirre MD Electronically Signed By: Allison Izaguirre MD Dictated Date: 05/31/2019 9:50:26 AM Prelim Date: 05/31/2019 9:50:26 AM Sign Date: 05/31/2019 9:53:22 AM Ordering Provider:Jose Alfredo [facility] ([place]) .GFRon 05-28-2019 GFR >60 [facility] ([place]) Comment on above: Result Comment: GFR Population mean for , Non- Americans Ages 20-29 = 116 mL/min/1.73 sq.m. Ages 30-39 = 107 mL/min/1.73 sq.m. Ages 40-49 = 99 mL/min/1.73 sq.m. Ages 50-59 = 93 mL/min/1.73 sq.m. Ages 60-69 = 85 mL/min/1.73 sq.m. Ages 70+ = 75 mL/min/1.73 sq.m. Chronic Kidney Disease: Less than 60 mL/min/1.73 square meters End Stage Renal Disease: Less than 15 mL/min/1.73 square meters Performed By: #### B UN, CRE, GFR #### [address] [address] GFR Non- >60 [facility] ([place]) Comment on above: Result Comment: GFR Population mean for , Non- Americans Ages 20-29 = 116 mL/min/1.73 sq.m. Ages 30-39 = 107 mL/min/1.73 sq.m. Ages 40-49 = 99 mL/min/1.73 sq.m. Ages 50-59 = 93 mL/min/1.73 sq.m. Ages 60-69 = 85 mL/min/1.73 sq.m. Ages 70+ = 75 mL/min/1.73 sq.m. Chronic Kidney Disease: Less than 60 mL/min/1.73 square meters End Stage Renal Disease: Less than 15 mL/min/1.73 square meters Performed By: #### B UN, CRE, GFR #### [address] [address] BUNon 05-28-2019 Urea nitrogen [Mass/Vol] 21.0 mg/dL Normal 8.0-22.0 [facility] ([place]) Comment on above: Performed By: #### B UN, CRE, GFR #### [facility] [address] [place] [address] CREon 05-28-2019 Creatinine [Mass/Vol] 0.88 mg/dL Normal 0.60-1.40 [facility] ([place]) Comment on above: Performed By: #### B UN, CRE, GFR #### [facility] [address] [place] [address] E-SIGN EMERGENCY RM RPTon E-SIGN EMERGENCY RM RPT [address] [address] EMERGENCY ROOM REPORT Patient Name: NEGRITA Tony Patient Number: [id number] Patient Type: ER MR Number: [id number] : 1945 Admit Date: 10/13/18 Admitting Physician: JOSE ALFREDO BEARDEN MD Second Physician: Unsigned documents are preliminary and do not represent medical or legal documents. CHIEF COMPLAINT: Rash and fever. HISTORY: The patient is a 72 year old male who states for six days he has been running an intermittent fever up to 101.4. He has had no sore throat, cough or cold symptoms. No vomiting or diarrhea. No abdominal pain. he has had a rash in the left groin. He also has muscle aches and feels as he did one year ago when he was diagnosed with Lyme disease. He had blood work done at five days of illness and at that time that ended up being negative because he was told it was drawn to early before there was an antibody response. Today is day six. The rash is just in the left groin. He has not seen any obvious tick bite, but he did not have such last year. REVIEW OF SYSTEMS: Ten systems reviewed were negative other than HPI. No urinary complaints. ALLERGIES: None. MEDICAL HISTORY: Prior hernia repair. Lyme's disease. PHYSICAL EXAMINATION: Vital signs are unremarkable. Temperature 97.1. He is smiling, alert, comfortable and nontoxic in appearance. Examination of the left groin reveals a patchy erythematous warm rash approximately 4cm x 3cm in the left groin. No hernia noted. No inguinal adenopathy. No breaks in the skin or ulcers were noted. It warm, red and blanches with pressure. No petechiae or purpura. No other rashes noted. HEENT: Oropharynx is clear. LUNGS: Clear. HEART: Regular with no murmurs. ABDOMEN: Soft and non- tender. EXTREMITIES: Otherwise the extremities are unremarkable. ER COURSE: I spoke with the patient extensively about treatment strategies. I did offer Lyme titers at this time, but it still may be too early. The patient will wait 5-7 days and see if his family physician can order Lyme titers. He would like to be placed on Doxycycline and he is written for a 3 weeks supply. The patient is to return as needed for worserning or any other problems. He understands and agrees with this approach. FINAL DIAGNOSIS: Fever and rash, questionable Lyme disease Electronically Reviewed and Signed by: JOSE ALFREDO BEARDEN MD 10/17/18 08:04 TI: ANGELINA TD: 10/14/18 Copy for: SULEIMAN REA MD EMERGENCY ROOM REPORT [address] [address] EMERGENCY ROOM REPORT Patient Name: NEGRITA Tony Patient Number: [id number] Patient Type: ER MR Number: [id number] : 1945 Admit Date: 10/13/18 Admitting Physician: JOSE ALFREDO BEARDEN MD Second Physician: Unsigned documents are preliminary and do not represent medical or legal documents. EMERGENCY ROOM REPORT Normal [facility] E-SIGN EMERGENCY [facility] E-SIGN EMERGENCY [address] [address] EMERGENCY ROOM REPORT Patient Name: NEGRITA Tony Patient Number: [id number] Patient Type: ER MR Number: [id number] : 1945 Admit Date: 11/08/17 Admitting Physician: ERNESTINE FRANCOIS MD Second Physician: Unsigned documents are preliminary and do not represent medical or legal documents. CHIEF COMPLAINT: Fever. HISTORY OF PRESENT ILLNESS: The patient is a 71 year old male who for the past five days has felt warm. He has had a temperature as high as 102.2. No treatment prior to admission as he states he did not know what to take. Eventually he has continued symptoms and comes to the emergency department. The patient has not been around anyone who has been ill with cough and cold. He has had no dysuria. No specific chest pain. No sore throat. No nasal symptoms other than if he is just mowing the grass, etc. REVIEW OF SYSTEMS: No earache. He has not noticed a rash. No joint edema. No chest palpitations. No dysphagia. No dysuria or gross hematuria. No eye lacrimation. No leg edema. No abdominal pain, nausea or vomiting. All other review of systems other than above are negative. SOCIAL HISTORY: The patient likes to go to [employer] and [employer], etc. He likes to walk outside. He does not smoke cigarettes. No others around him are known to be ill. PAST MEDICAL HISTORY: Herniorrhaphy. The patient has not seen a physician for a while. He has not had a colonoscopy recently. The patient did get a PSA via the [facility]. MEDICATIONS: No chronic medications. ALLERGIES: No known drug allergies. PHYSICAL EXAMINATION: Temperature 100.4. Pulse 94/regular. Respirations 18. Blood pressure 147/86. Pulse oximetry is 98%. Weight is 180 pounds. The patient is in no distress. He is alert and oriented X3. NEUROLOGICAL: Equal strength of the upper and lower extremities. Good light touch sensation distally. Deep tendon reflexes are symmetrical. Cranial nerves 3-12 are intact. EXTREMITIES: The lower extremities are without edema. ABDOMEN: No CVA tenderness. No organomegaly. No anterior tenderness. No suprapubic tenderness. LUNGS: No wheezes, rales or rhonchi. CARDIAC: Without murmurs, rubs or gallops. Good peripheral pulses and capillary refill. NECK: No goiter or lymph nodes. HEENT: Tympanic membranes are normal. Nose is clear. Sclera are white. Pharynx shows mild injection and no exudates. SKIN: The skin does feel warm and clammy. SIGNIFICANT LABS: PA and lateral chest x-ray shows right basilar subsegmental atelectasis and no other acute findings. Urinalysis shows occasional epithelial cells, moderate bacteria, 0-2 urine WBCs, negative nitrites and leukocytes. 1+ ketones, bilirubin and blood. 2+ protein. CMP showed an AST of 71. ALT 60. Glucose 108. BUN 18. Creatinine 1.1. Sodium 128. Potassium 3.9. Chloride 94. Co2 24. Influenza A&B are negative. CBC shows an H&H of 15 and 43. Platelet count 129,000. White blood count 4.8 with 82% segs and 9% lymphs and monocytes. Continued on next page please... EMERGENCY ROOM REPORT [address] [address] EMERGENCY ROOM REPORT Patient Name: NEGRITA Tony Patient Number: [id number] Patient Type: ER MR Number: [id number] : 1945 Admit Date: 11/08/17 Admitting Physician: ERNESTINE FRANCOIS MD Second Physician: Unsigned documents are preliminary and do not represent medical or legal documents. Page Two ER Report, continued... ER COURSE: The patient was given ibuprofen 600mg p.o.. Follow up temperature was 99.2. He stated that he was feeling better and felt less feverish and less achy. FINAL DIAGNOSIS: 1. Fever DIFFERENTIAL DIAGNOSIS: 1. Viral syndrome ER TREATMENT: Will do a Lyme serology. Blood culture is pending. PLAN: Doxycycline until the Lyme study results are available. Tylenol and/or Ibuprofen/Naproxen for aches, pains and fever. Follow up with primary care physician at the end of next week. Return or call the emergency department for Lyme serology test results or as needed. Electronically Reviewed and Signed by: ERNESTINE FRANCOIS MD 11/12/17 08:39 TI: ANGELINA TD: 11/11/17 Copy for: PRISCILA SINHA MD EMERGENCY ROOM REPORT Normal [facility] CBCon 11-08-2017 Basophils #/vol (Bld) 0.0 X103 Normal 0.0 - 0.1 [facility] Comment on above: Performed By: #### 2 [id number] #### [facility] [address] [place] [address] Other Comment: COMPL ETE BLOOD COUNT Basophils/100 WBC (Bld) 0.2 % Normal 0.0 - 2.[address] [facility] Comment on above: Performed By: #### 2 [id number] #### [facility] [address] [place] [address] Other Comment: COMPL ETE BLOOD COUNT Eosinophils #/vol (Bld) 0.0 X103 Normal 0.0 - 0.[address] [facility] Comment on above: Performed By: #### 2 [id number] #### [facility] [address] [place] [address] Other Comment: COMPL ETE BLOOD COUNT Eosinophils/100 WBC (Bld) 0.0 % Normal 0.0 - 8.0 [facility] Comment on above: Performed By: #### 2 [id number] #### [facility] [address] [place] [address] Other Comment: COMPL ETE BLOOD COUNT Erythrocyte distribution width Ratio (RBC) 13.8 % Normal 11.5 - 15.5 [facility] Comment on above: Performed By: #### 2 [id number] #### [facility] [address] [place] [address] Other Comment: COMPL ETE BLOOD COUNT Hematocrit Volume Fraction (Bld) 42.9 % Normal 42.0 - 52.0 [facility] Comment on above: Performed By: #### 2 [id number] #### [facility] [address] [place] [address] Other Comment: COMPL ETE BLOOD COUNT Hemoglobin mass conc (Bld) 14.7 g/dL Normal 14.0 - 18.0 [facility] Comment on above: Performed By: #### 2 [id number] #### [facility] [address] [place] [address] Other Comment: COMPL ETE BLOOD COUNT Lymphocytes #/vol (Bld) 0.5 X103 Low 1.3 - 2.[address] [facility] Comment on above: Performed By: #### 2 [id number] #### [facility] [address] [place] [address] Other Comment: COMPL ETE BLOOD COUNT Lymphocytes/100 WBC (Bld) 9.4 % Low 20.0 - 46.0 [facility] Comment on above: Performed By: #### 2 [id number] #### [facility] [address] [place] [address] Other Comment: COMPL ETE BLOOD COUNT MANUAL DIFF NOT INDICATED Normal [facility] Comment on above: Performed By: #### 2 [id number] #### [facility] [address] [place] [address] Other Comment: COMPL ETE BLOOD COUNT MCH Entitic mass (RBC) 33.1 pg High 27.0 - 31.[address] [facility] Comment on above: Performed By: #### 2 [id number] #### [facility] [address] [place] [address] Other Comment: COMPL ETE BLOOD COUNT MCHC mass conc (RBC) 34.4 g/dL Normal 32.0 - 36.0 [facility] Comment on above: Performed By: #### 2 [id number] #### [facility] [address] [place] [address] Other Comment: COMPL ETE BLOOD COUNT MCV Entitic volume (RBC) 96.5 fL High 80.0 - 94.0 [facility] Comment on above: Performed By: #### 2 [id number] #### [facility] [address] [place] [address] Other Comment: COMPL ETE BLOOD COUNT Monocytes #/vol (Bld) 0.4 X103 Normal 0.3 - 0.8 [facility] Comment on above: Performed By: #### 2 [id number] #### [facility] [address] [place] [address] Other Comment: COMPL ETE BLOOD COUNT Monocytes/100 WBC (Bld) 8.9 % Normal 0.0 - 12.[address] [facility] Comment on above: Performed By: #### 2 [id number] #### [facility] [address] [place] [address] Other Comment: COMPL ETE BLOOD COUNT Neutrophils #/vol (Bld) 3.9 X103 Normal 1.6 - 4.[address] [facility] Comment on above: Performed By: #### 2 [id number] #### [facility] [address] [place] [address] Other Comment: COMPL ETE BLOOD COUNT Platelet mean volume Entitic volume (Bld) 8.3 fL Normal 7.4 - 10.4 [facility] Comment on above: Performed By: #### 2 [id number] #### [facility] [address] [place] [address] Other Comment: COMPL ETE BLOOD COUNT PLTS 129 X103 Low 130 - 400 [facility] Comment on above: Performed By: #### 2 [id number] #### [facility] [address] [place] [address] Other Comment: COMPL ETE BLOOD COUNT RBC #/vol (Bld) 4.45 X106 Low 4.70 - 6.10 [facility] Comment on above: Performed By: #### 2 [id number] #### [facility] [address] [place] [address] Other Comment: COMPL ETE BLOOD COUNT RBC morphology finding Nom (Bld) NOT INDICATED Normal [facility] Comment on above: Performed By: #### 2 [id number] #### [facility] [address] [place] [address] Other Comment: COMPL ETE BLOOD COUNT Segmented neutrophils/100 WBC (Bld) 81.5 % High 42.0 - 66.0 [facility] Comment on above: Performed By: #### 2 [id number] #### [facility] [address] [place] [address] Other Comment: COMPL ETE BLOOD COUNT WBC #/vol (Bld) 4.8 X103 Normal 4.8 - 10.8 [facility] Comment on above: Performed By: #### 2 [id number] #### [facility] [address] [place] [address] Other Comment: COMPL ETE BLOOD COUNT CHEST PA AND LATERALon 11-08 CHEST PA AND LATERAL [address] [address] _ RADIOLOGY REPORT Name: NEGRITA Tony Admit Phys: FRANCOIS Age: 71 Sex: M Order Phys: FRANCOIS NE : 1945 Stay Type: ER X-ray #: Admit: 11/08/17 Room: 102 MR #: [id number] CHEST PA & LATERAL [id number] COMPLETE:11/08/17 12:39 [place] [id number] (REASON FOR CHEST: FEVER Unsigned transcriptions represent a preliminary report and do not reflect corrections, additions, and/or subtractions to the information contained in this report. CLINICAL HISTORY: FEVER WITH FLULIKE SYMPTOMS. . TECHNIQUE: Frontal and lateral views of the chest. COMPARISON: None FINDINGS: The heart size is normal. The mediastinal contour is unremarkable. There is some right basilar atelectasis. The lungs are otherwise clear. Scoliosis is present with degenerative changes in the lumbar spine. IMPRESSION: RIGHT BASILAR SUBSEGMENTAL ATELECTASIS. NO OTHER ACUTE FINDINGS. Dictated By: LIBIA Electronically Reviewed and Signed By: Transcribed By: zulay RADIOLOGIST Transcribed Date: 11/13/17 09:08 MAGDIEL AARON MD 11/13/17 09:16 Copy for: File copy printer # [id number] [address] _ RADIOLOGY REPORT Name: NEGRITA Tony Admit Phys: FRANCOIS Age: 71 Sex: M Order Phys: FRANCOIS NE : 1945 Stay Type: ER X-ray #: Admit: 11/08/17 Room: [facility] MR #: [id number] CHEST PA & LATERAL [id number] COMPLETE:11/08/17 12:39 [place] [id number] (REASON FOR CHEST: FEVER Unsigned transcriptions represent a preliminary report and do not reflect corrections, additions, and/or subtractions to the information contained in this report. Copy for: PRISCILA SINHA MD via printer DISCHARGED Normal [facility] COMPREHENSIVE METABOLIC PANE [place] 11-08-2017 Age Reported 71 YRS Normal [facility] Comment on above: Performed By: #### 2 [id number] #### [facility] [address] [place] [address] Albumin mass conc 3.8 g/dL Normal 3.5 - 5.0 [facility] Comment on above: Performed By: #### 2 [id number] #### [facility] [address] [place] [address] Albumin/Globulin mass ratio 1.2 {ratio} Normal 1.1 - 2.2 [facility] Comment on above: Result Comment: \BLDo\eGFR INTERPRETATION\BLDx\ The estimated GFR is calculated by the original MDRD equation. NORMAL RANGE: >60 mL/min/1.73 sq meters *GFR only applies to adults over the age of 18. Performed By: #### 2 [id number] #### [facility] [address] [place] [address] ALKALINE PHOS 66 IU/L Normal 32 - 92 [facility] Comment on above: Performed By: #### 2 [id number] #### [facility] [address] [place] [address] ALT enzyme act/vol 60 U/L High 10 - 40 [facility] Comment on above: Performed By: #### 2 [id number] #### [facility] [address] [place] [address] AST enzyme act/vol 71 U/L High 10 - 42 [facility] Comment on above: Performed By: #### 2 [id number] #### [facility] [address] [place] [address] Bilirubin.direct mass conc 0.7 mg/dL Normal 0.2 - 1.0 [facility] Comment on above: Performed By: #### 2 [id number] #### [facility] [address] [facility] [place] [address] Calcium mass conc 8.7 mg/dL Normal 8.4 - 10.2 [facility] Comment on above: Performed By: #### 2 [id number] #### [facility] [address] [facility] [place] [address] Chloride molar conc 94 mmol/L Low 101 - 111 [facility] Comment on above: Performed By: #### 2 [id number] #### [facility] [address] [facility] [place] [address] CO2 molar conc 24 mmol/L Normal 21 - 31 [facility] Comment on above: Performed By: #### 2 [id number] #### [facility] [address] [facility] [place] [address] Creatinine mass conc 1.1 mg/dL Normal 0.6 - 1.3 [facility] Comment on above: Performed By: #### 2 [id number] #### [facility] [address] [facility] [place] [address] eGFR AfrAm 84 mL/min Normal [facility] Comment on above: Performed By: #### 2 [id number] #### [facility] [address] [place] [address] eGFR NonAfrAm 70 mL/min Normal [facility] Comment on above: Performed By: #### 2 [id number] #### [facility] [address] [place] [address] Glucose mass conc 108 mg/dL High 65 - 99 [facility] Comment on above: Performed By: #### 2 [id number] #### [facility] [address] [facility] [place] [address] Potassium molar conc 3.9 mmol/L Normal 3.6 - 5.0 [facility] Comment on above: Performed By: #### 2 [id number] #### [facility] [address] [facility] [place] [address] Protein mass conc 7.1 g/dL Normal 6.4 - 8.3 [facility] Comment on above: Performed By: #### 2 [id number] #### [facility] [address] [place] [address] Sodium molar conc 128 mmol/L Low 135 - 145 [facility] Comment on above: Performed By: #### 2 [id number] #### [facility] [address] [place] [address] Urea nitrogen mass conc 18 mg/dL Normal 7 - [address] [facility] Comment on above: Performed By: #### 2 [id number] #### [facility] [address] [place] [address] INFLUENZA A/B RAPID IDon INFLUENZA A Negative Normal NORMAL: NEGATIVE [facility] Comment on above: Performed By: #### 2 [id number] #### [facility] [address] [place] [address] INFLUENZA B Negative Normal NORMAL: NEGATIVE [facility] Comment on above: Result Comment: Positive for Influenza A--This test can not distinguish influenza subtypes. For example, this test can not distinguish influenza infections caused by novel influenza A (like H1N1) versus seasonal influenza A viruses. Negative for Influenza A and B--A negative result does not exclude influenza virus infection. If influenza is circultaing in your community, a diagnosis of influenza should be considered based on a patient's clinical presentation and empiric antiviral treatment should be considered, if indicated. If more conclusive testing is desired,follow-up confirmatory testing with either viral culture or PCR is warranted. Performed By: #### 2 [id number] #### [facility] [address] [place] [address] SPECIMEN: NASAL SWAB Normal [facility] Comment on above: Performed By: #### 2 [id number] #### [facility] [address] [place] [address] URINALYSISon 11-08-2017 Appearance Nom (U) CLEAR Normal NORM: CLEAR [facility] Comment on above: Performed By: #### 2 [id number] #### [facility] [address] [place] [address] Other Comment: URINA LYSIS Bacteria LM.HPF #/area (Urine sed) MODERATE Normal [facility] Comment on above: Performed By: #### 2 [id number] #### [facility] [address] [place] [address] Other Comment: URINA LYSIS Bilirubin mass conc 1+ Normal NORM: NEGATIVE [facility] Comment on above: Performed By: #### 2 [id number] #### [facility] [address] [place] [address] Other Comment: URINA LYSIS BLOOD 1+ Normal NORM: NEGATIVE [facility] Comment on above: Performed By: #### 2 [id number] #### [facility] [address] [place] [address] Other Comment: URINA LYSIS Cast Type HYALINE Normal [facility] Comment on above: Performed By: #### 2 [id number] #### [facility] [address] [place] [address] Other Comment: URINA LYSIS Casts LM.LPF #/area (Urine sed) 1-2 Normal [facility] Comment on above: Performed By: #### 2 [id number] #### [facility] [address] [place] [address] Other Comment: URINA LYSIS Color Nom (U) JACKIE Normal [facility] Comment on above: Performed By: #### 2 [id number] #### [facility] [address] [place] [address] Other Comment: URINA LYSIS Epi Cells OCCASIONAL Normal [facility] Comment on above: Performed By: #### 2 [id number] #### [facility] [address] [place] [address] Other Comment: URINA LYSIS GLUC Negative Normal NORM: NEGATIVE [facility] Comment on above: Performed By: #### 2 [id number] #### [facility] [address] [place] [address] Other Comment: URINA LYSIS Ketones Ql (U) 1+ Normal NORM: NEGATIVE [facility] Comment on above: Performed By: #### 2 [id number] #### [facility] [address] [place] [address] Other Comment: URINA LYSIS Mucus Ql (Urine sed) MODERATE Normal [facility] Comment on above: Performed By: #### 2 [id number] #### [facility] [address] [place] [address] Other Comment: URINA LYSIS Nitrite Ql (U) Negative Normal NORM: NEGATIVE [facility] Comment on above: Performed By: #### 2 [id number] #### [facility] [address] [place] [address] Other Comment: URINA LYSIS pH (Bld) 6.0 Normal [facility] Comment on above: Performed By: #### 2 [id number] #### [facility] [address] [place] [address] Other Comment: URINA LYSIS Protein mass conc (U) 2+ Normal NORM: NEGATIVE [facility] Comment on above: Performed By: #### 2 [id number] #### [facility] [address] [place] [address] Other Comment: URINA LYSIS SPECIFIC GR 1.025 Normal NORM: 1.005-1.030 [facility] Comment on above: Performed By: #### 2 [id number] #### [facility] [address] [place] [address] Other Comment: URINA LYSIS Urobilinogen Qn (U) 0.2 Normal NORM: 0. 2-1 MG/DL [facility] Comment on above: Performed By: #### 2 [id number] #### [facility] [address] [place] [address] Other Comment: URINA LYSIS WBC #/vol (Bld) Negative Normal NORM: NEGATIVE [facility] Comment on above: Performed By: #### 2 [id number] #### [facility] [address] [place] [address] Other Comment: URINA LYSIS Wbcs 0-2 Normal [facility] Comment on above: Performed By: #### 2 [id number] #### [facility] [address] [place] [address] Other Comment: URINA LYSIS WITH MICRO SEE BELOW Normal [facility] Comment on above: Performed By: #### 2 [id number] #### [facility] [address] [place] [address] Other Comment: URINA LYSIS SURGICAL PATHOLOGY, CONVERTE Don 08-25-2009 [facility] COVID-19 virus antigen assay SARS-CoV-2 (COVID-19) Ag IA.rapid Ql (Resp) [facility] Work Phone: Stool gastrointestinal hemog lobin detection by immunologic method Lower GI hemoglobin IA Ql (Stl) [facility] Work Phone: Vital Signs Date Time Vital Sign Value Performing Clinician Luly dumont 09-02-2024 13:57-0400 Body temperature 98.4 [degF] Dr. Eligio Contreras MD Work Phone: [facility] 09-02-2024 13:57-0400 Diastolic blood pressure 65 mm[Hg] Dr. Eligio Contreras MD Work Phone: [facility] 09-02-2024 13:57-0400 Heart rate 83 /min Dr. Eligio Contreras MD Work Phone: [facility] 09-02-2024 13:57-0400 Respiratory rate 18 /min Dr. Eligio Contreras MD Work Phone: [facility] 09-02-2024 13:57-0400 SaO2% (BldA) [Mass fraction] 95 % Dr. Eligio Contreras MD Work Phone: [facility] 09-02-2024 13:57-0400 Systolic blood pressure 121 mm[Hg] Dr. Eligio Contreras MD Work Phone: [facility] 09-02-2024 08:30-0400 Inhaled oxygen flow rate 2 L/min Dr. Eligio Contreras MD Work Phone: [facility] 09-02-2024 06:00-0400 Body mass index (BMI) [Ratio] 29.2 kg/m2 Dr. Eligio Contreras MD Work Phone: [facility] 09-02-2024 06:00-0400 Body weight 92.[address] Eligio Contreras MD Work Phone: [facility] 08-31-2024 23:41-0400 Body height [address] Eligio Contreras MD Work Phone: [facility] 05-04-2022 10:19-0500 Diastolic blood pressure 67 mm[Hg] Dr. Lucien Gramajo Work Phone: [facility] Work Phone: 05-04-2022 10:19-0500 Heart rate 86 /min Dr. Lucien Gramajo Work Phone: [facility] Work Phone: 05-04-2022 10:19-0500 Systolic blood pressure 128 mm[Hg] Dr. Lucien Gramajo Work Phone: [facility] Work Phone: 05-04-2022 07:20-0500 Body temperature 97.1 [degF] Dr. Lucien Gramajo Work Phone: [facility] Work Phone: 05-04-2022 07:20-0500 Respiratory rate 15 /min Dr. Lucien Gramajo Work Phone: [facility] Work Phone: 05-04-2022 07:20-0500 SaO2% (BldA) [Mass fraction] 97 % Dr. Lucien Gramajo Work Phone: [facility] Work Phone: 05-03-2022 06:00-0500 Body weight 77.[address] Lucien Gramajo Work Phone: [facility] Work Phone: 05-02-2022 13:17-0500 Body height [address] Lucien Gramajo Work Phone: [facility] Work Phone: 04-12-2022 11:46-0500 Body mass index (BMI) [Ratio] 24.3 kg/m2 Dr. Lucien Gramajo Work Phone: [facility] Work Phone: 03-26-2022 10:15-0500 Body height 179.1 cm Belkis ALMANZAR-C Work Phone: [facility] 03-26-2022 10:15-0500 Body weight 84.37 kg Belkis Nam PA-C Work Phone: [facility] 03-26-2022 10:15-0500 Diastolic blood pressure 64 mm[Hg] Belkis Hui PA-C Work Phone: [facility] 03-26-2022 10:15-0500 Heart rate 96 /min Belkis Hui PA-C Work Phone: [facility] 03-26-2022 10:15-0500 Systolic blood pressure 99 mm[Hg] Belkis Hui PA-C Work Phone: [facility] 03-14-2022 11:44-0400 Body temperature 97.3 [degF] Dr. Lucien Gramajo Work Phone: [facility] Work Phone: 03-14-2022 11:44-0400 Diastolic blood pressure 65 mm[Hg] Dr. Lucien Gramajo Work Phone: [facility] Work Phone: 03-14-2022 11:44-0400 Heart rate 88 /min Dr. Lucien Gramajo Work Phone: [facility] Work Phone: 03-14-2022 11:44-0400 Respiratory rate 18 /min Dr. Lucien Gramajo Work Phone: [facility] Work Phone: 03-14-2022 11:44-0400 SaO2% (BldA) [Mass fraction] 97 % Dr. Lucien Gramajo Work Phone: [facility] Work Phone: 03-14-2022 11:44-0400 Systolic blood pressure 112 mm[Hg] Dr. Lucien Gramajo Work Phone: [facility] Work Phone: 03-14-2022 06:00-0400 Body weight 78.[address] Lucien Gramajo Work Phone: [facility] Work Phone: 03-13-2022 23:45-0400 Body mass index (BMI) [Ratio] 26.5 kg/m2 Dr. Lucien Gramajo Work Phone: [facility] Work Phone: 12-25-2021 11:09-0400 Body height 177.8 cm Carson Idoine III, DO Work Phone: [facility] 12-25-2021 11:09-0400 Body weight 83.92 kg Carson Idoine III, DO Work Phone: [facility] 12-25-2021 11:09-0400 Diastolic blood pressure 93 mm[Hg] Carson Idoine III, DO Work Phone: [facility] 12-25-2021 11:09-0400 Heart rate 87 /min Crason Idoine III, DO Work Phone: [facility] 12-25-2021 11:09-0400 Systolic blood pressure 175 mm[Hg] Carson Idoine III, DO Work Phone: [facility] 12-17-2021 13:18-0400 Body height 177.8 cm An Lee MD Work Phone: [facility] 12-17-2021 13:18-0400 Body weight 83.94 kg An Lee MD Work Phone: [facility] 12-17-2021 13:18-0400 Diastolic blood pressure 98 mm[Hg] An Lee MD Work Phone: [facility] 12-17-2021 13:18-0400 Heart rate 89 /min An Lee MD Work Phone: [facility] 12-17-2021 13:18-0400 Systolic blood pressure 160 mm[Hg] An Lee MD Work Phone: [facility] Encounters Encounter Date Encounter Type Care Provider Facility Start: 09-02-2024 Non-patient / Non-visit Dr. Merary Wong DO [facility] Work Phone: Start: 09-01-2024 Non-patient / Non-visit Dr. Merary Wong DO [facility] Work Phone: Start: 08-31-2024 ambulatory Eligio Contreras Facility :[facility] Start: 08-31-2024 End: 09-02-2024 Evaluation and management of inpatient Dr. Merary Wong DO -[facility] 3 Work Phone: Start: 05-22-2022 Telephone encounter Aiden villela MD Work Phone: [facility] Comment on above: Modified [place] [facility] Start: 05-16-2022 Telephone encounter Carson Barksdale pat Bullock DO Work Phone: [facility] Comment on above: No Show Start: 05-03-2022 Non-patient / Non-visit Dr. Ousmane Gramajo Work Phone: [facility] Start: 05-02-2022 Non-patient / Non-visit Dr. Ousmane Gramajo Work Phone: [facility] Start: 05-01-2022 Non-patient / Non-visit Dr. Ousmane Gramajo Work Phone: [facility] Start: 04-30-2022 Non-patient / Non-visit Dr. Ousmane Gramajo Work Phone: [facility] Start: 04-23-2022 Non-patient / Non-visit Dr. Ousmane Gramajo Work Phone: [facility] Start: 04-22-2022 Non-patient / Non-visit Dr. Ousmane Gramajo Work Phone: [facility] Start: 04-20-2022 Non-patient / Non-visit Dr. Ousmane Gramajo Work Phone: [facility] Start: 04-18-2022 Non-patient / Non-visit Dr. Ousmane Gramajo Work Phone: [facility] Start: 04-15-2022 Non-patient / Non-visit Dr. Ousmane Gramajo Work Phone: [facility] Start: 04-12-2022 End: 05-04-2022 Evaluation and management of inpatient Dr. Lucien Gramajo Work Phone: [facility] Start: 04-01-[address] Lucien carrillo Work Phone: [facility] Start: 03-27-2022 End: 03-27-[address] Lucien Gramajo Work Phone: [facility] Start: 03-26-2022 End: 03-26-2022 ambulatory PALAK KIDD Facility:[facility] Start: 03-26-2022 End: 03-26-2022 Patient encounter procedure Belkis Nam PA-C Work Phone: [facility] Comment on above: Orthopedic aftercare (Primary Dx); Status post reverse arthroplasty of left shoulder; Primary osteoarthritis of left shoulder Start: 03-18-[address] Lucien carrillo Work Phone: [facility] Start: 03-15-2022 End: 03-15-[address] Lucien Gramajo Work Phone: [facility] Start: 03-13-2022 Non-patient / Non-visit Dr. Ousmane Gramajo Work Phone: [facility] Start: 03-12-2022 Non-patient / Non-visit Dr. Ousmane Gramajo Work Phone: [facility] Start: 03-10-2022 Non-patient / Non-visit Dr. Ousmane Gramajo Work Phone: [facility] Start: 03-07-2022 Non-patient / Non-visit Dr. Ousmane Gramajo Work Phone: [facility] Start: 03-06-2022 Non-patient / Non-visit Dr. Ousmane Gramajo Work Phone: [facility] Start: 03-04-2022 Non-patient / Non-visit Dr. Ousmane Gramajo Work Phone: [facility] Start: 02-28-2022 Non-patient / Non-visit Dr. Ousmane Gramajo Work Phone: [facility] Start: 02-28-2022 Non-patient / Non-visit Dr. Ousmane Gramajo Work Phone: [facility] Start: 02-26-2022 Non-patient / Non-visit Dr. Ousmane Gramajo Work Phone: [facility] Start: 02-26-2022 Non-patient / Non-visit Dr. Ousmane Gramajo Work Phone: [facility] Start: 02-25-2022 Non-patient / Non-visit Dr. Ousmane Gramajo Work Phone: [facility] Start: 02-22-2022 Non-patient / Non-visit Dr. Ousmane Gramajo Work Phone: [facility] Start: 02-21-2022 Non-patient / Non-visit Dr. Ousmane Gramajo Work Phone: [facility] Start: 02-20-2022 Telephone encounter Carson Bullock DO Work Phone: [facility] Comment on above: Orders Start: 02-19-2022 End: 03-14-2022 Evaluation and management of inpatient Dr. Lucien Gramajo Work Phone: [facility] Start: 02-09-2022 ambulatory CARSON BULLOCK III Facil ity:[facility] Start: 02-09-2022 End: 02-09-2022 Subsequent hospital visit by physician Provider [facility] Start: 02-07-2022 End: 02-19-2022 [facility] Start: 02-06-2022 End: 02-07-2022 ambulatory Aquiles Guillaume MD Work Phone: Neurosurgery Comment on above: Acute ischemic left ICA stroke (HCC) (Primary Dx) Start: 02-06-2022 Telemedicine consult ation with patient Aquiles Jared Guillaume MD Work Phone: [facility] Start: 02-03-2022 ambulatory CARSON PARKSINE III Facil ity:[facility] Start: 02-03-2022 End: 02-03-2022 Subsequent hospital visit by physician Provider [facility] Start: 01-31-2022 Telephone encounter Carson Barksdale as Idoine DO Work Phone: [facility] Comment on above: Physician Review Yi ointment Start: 01-31-2022 End: 01-31-2022 ambulatory CARSON RODRIGUEZ IDOINE III Facility:[facility] Start: 01-30-2022 End: 01-30-2022 ambulatory [facility] Start: 01-28-2022 Telephone encounter Carson Barksdale as Idoine DO Work Phone: [facility] Comment on above: Preparations For Jeremiah luna Start: 01-24-2022 Telephone encounter Carson Barksdale as Idoine DO Work Phone: [facility] Comment on above: EKG Result Start: 01-24-2022 End: 02-08-2022 ambulatory CARSON D IDOINE III Facility:[facility] Start: 01-24-2022 End: 01-24-2022 Subsequent hospital visit by physician Provider [facility] Start: 01-15-2022 Telephone encounter Carson Bensonl as Idoine DO Work Phone: [facility] Comment on above: AMBX SX AUTH 02/07/20 Start: 01-11-2022 Patient encounter status Carson Rodriguez Idoine DO Work Phone: [facility] Start: 01-11-2022 Telephone encounter Carson Bensonl as Idoine DO Work Phone: [facility] Comment on above: Schedule Surgery Start: 01-10-2022 ambulatory CARSON D IDOINE III Facil ity:[facility] Start: 01-10-2022 End: 01-10-2022 Subsequent hospital visit by physician Provider [facility] Start: 12-26-2021 Telephone encounter Carson stewart Ara DO Work Phone: [facility] Comment on above: Scans Start: 12-25-2021 End: 12-25-2021 ambulatory AN LEE Facility:[facility] Start: 12-25-2021 End: 12-25-2021 Patient encounter procedure Carson Rodriguez Monicopretty DO Work Phone: [facility] Comment on above: Primary osteoarthrit is of left shoulder (Primary Dx); Injury of tendon of long head of left biceps, initial encounter; Chronic left shoulder pain Start: 12-17-2021 End: 12-18-2021 ambulatory NA LEE Facility:[facility] Start: 12-17-2021 End: 12-17-2021 Patient encounter procedure An Lee MD Work Phone: [facility] Comment on above: Chronic pain of both shoulders (Primary Dx); Primary osteoarthritis of shoulders, bilateral Start: 12-04-2021 End: 12-04-2021 ambulatory PALAK M [facility] Start: 11-19-2021 ambulatory PALAK KIDD [facility] Start: 09-27-2021 End: 09-27-2021 ambulatory PALAK [facility] Start: 09-13-2021 End: 09-13-2021 ambulatory PALAK [facility] Start: 09-12-2021 End: 09-12-2021 Subsequent hospital visit by physician Provider [facility] Start: 08-29-2021 [facility] Start: 08-29-2021 End: 08-29-2021 ambulatory PALAK [facility] Start: 08-20-2021 End: 08-20-2021 ambulatory PALAK [facility] Start: 06-05-2021 End: 06-06-2021 ambulatory JENELLE KIDD [facility] Start: 03-01-2021 End: 03-02-2021 ambulatory JENELLE KIDD [facility] Start: 11-02-2020 End: 11-03-2020 ambulatory PA PALAK KIDD [facility] Start: 02-09-2020 End: 02-09-2020 Subsequent hospital visit by physician Provider [facility] Start: 08-26-2009 Documentation procedure Elie Lei MD Work Phone: [facility] Start: 08-26-2009 Historic EMR Elie villela MD Work Phone: [facility] Procedures Date Procedure Procedure Detail Performing Clinician Start: 08-31-2024 X-ray of chest, PA and lateral views Dr. Eligio Contreras MD Work Phone: Start: 08-31-2024 SARS-CoV-2, Influenza & RSV (PCR) Dr. Margie Contreras MD Work Phone: Start: 02-28-[address] Lucien Gramajo Work Phone: Start: 02-26-[address] Lucien Gramajo Work Phone: Start: 02-20-2022 Plain chest X-ray Dr. Lucien Gramajo Work Phone: Start: 08-25-2009 SURGICAL PATHOLOGY, CONVERTED Elie chapin MD Work Phone: H/O: artificial joint History of left shoulder replacement Dr. Lucien Gramajo Work Phone: H/O: surgery Status post dilation of esophageal narrowing Dr. Lucien Gramajo Work Phone: Measurement of occul t blood in stool specimen using immunoassay Dr. Lucien Gramajo Work Phone: Viral antigen assay Dr. Lucien Gramajo Work Phone: Plan of Treatment Date Care Activity Detail Author Start: 02-06-2025 DIABETES SCREEN DIABETES SCREEN [facility] Start: 01-24-2025 DIABETES SCREEN DIABETES SCREEN [facility] Start: 09-02-2024 Patient discharge [facility] Start: 09-01-2024 Care planning and pr oblem solving actions [facility] Start: 09-01-2024 Physiotherapy of chest [facility] Start: 09-01-2024 Referral to occupati onal therapist [facility] Start: 09-01-2024 Speech therapy assessment [facility] Start: 08-31-2024 End: 09-01-2024 [facility] Start: 08-31-2024 Following clinical p athway protocol [facility] Start: 08-31-2024 Assessment of risk o f venous thromboembolism [facility] Start: 08-31-2024 Contact precautions [facility] Start: 08-31-2024 Incentive spirometry [facility] Start: 08-31-2024 Insertion of cathete r into peripheral vein [facility] Start: 08-31-2024 Measuring intake and output [facility] Start: 08-31-2024 Oxygen therapy [facility] Start: 08-31-2024 Providing care accor ding to standard [facility] Start: 08-31-2024 Referral to service [facility] Start: 08-31-2024 End: 08-31-2024 Respiratory secretion precautions [facility] Start: 08-31-2024 Admission procedure [facility] Start: 03-26-2023 BP CONTROLLED (<130/80) BP CONTROLLE D (<130/80) [facility] Start: 02-07-2023 Hepatitis B surface antibody level LDL CHOLESTEROL [facility] Start: 01-10-2023 Influenza vaccination Influenza Vacc ine (#1) [facility] Start: 08-07-2022 Hemoglobin A1c/Hemoglobin.total in Blood HBA1C [facility] Start: 05-12-2022 ADVANCE DIRECTIVE DISCUSSION ADVANCE DIRECTIVE DISCUSSION [facility] Start: 05-12-2022 DEPRESSION ASSESSMENT DEPRESSION ASS ESSMENT [facility] Start: 05-04-2022 Patient discharge [facility] Work Phone: Start: 04-18-2022 Introduction of urin neel catheter [facility] Work Phone: Start: 04-15-2022 Measuring intake and output [facility] Work Phone: Start: 04-12-2022 Referral to service [facility] Work Phone: Start: 04-12-2022 Urinary bladder training [facility] Work Phone: Start: 04-12-2022 Admission procedure [facility] Work Phone: Start: 04-12-2022 Referral to occupati onal therapist [facility] Work Phone: Start: 04-12-2022 Vital signs measurements [facility] Work Phone: Start: 04-12-2022 [facility] Work Phone: Start: 04-12-2022 [facility] Work Phone: Start: 04-12-2022 Incentive spirometry [facility] Work Phone: Start: 04-12-2022 Patient referral to dietitian [facility] Work Phone: Start: 04-12-2022 Speech therapy assessment [facility] Work Phone: Start: 03-14-2022 Patient discharge [facility] Work Phone: Start: 03-13-2022 Introduction of urin neel catheter [facility] Work Phone: Start: 03-10-2022 [facility] Work Phone: Start: 03-07-2022 [facility] Work Phone: Start: 02-26-2022 Following clinical p athway protocol [facility] Work Phone: Start: 02-26-2022 Catheterization of vein [facility] Work Phone: Start: 02-21-2022 [facility] Work Phone: Start: 02-21-2022 Referral to gastroenterology service [facility] Work Phone: Start: 02-19-2022 Urinary bladder training [facility] Work Phone: Start: 02-19-2022 Referral to service [facility] Work Phone: Start: 02-19-2022 Admission procedure [facility] Work Phone: Start: 02-19-2022 Patient referral to dietitian [facility] Work Phone: Start: 02-19-2022 Referral to occupati onal therapist [facility] Work Phone: Start: 02-19-2022 Vital signs measurements [facility] Work Phone: Start: 02-19-2022 End: 02-19-2022 [facility] Work Phone: Start: 02-19-2022 Incentive spirometry [facility] Work Phone: Start: 02-19-2022 Speech therapy assessment [facility] Work Phone: Start: 02-03-2022 End: 01-11-2023 SARS-CoV-2 (COVID-19) RNA [Presence] in Respiratory specimen by NICO with probe detection PRE-PROCEDURE & PRE-OPERATIVE COVID Microbiology Routine Primary osteoarthritis of left shoulder Injury of tendon of long head of left biceps, initial encounter Preoperative testing Expected: 02/03/2022, Expires: 01/11/2023 [facility] Work Phone: Comment on above: Expected: 02/03/2022 , Expires: 01/11/2023 Start: 01-15-2022 End: 03-17-2022 Basic metabolic 2000 panel - Serum or Plasma BASIC METABOLIC PNL Lab Routine Primary osteoarthritis of left shoulder Injury of tendon of long head of left biceps, initial encounter Preoperative testing Expected: 01/15/2022, Expires: 03/17/2022 [facility] Work Phone: Comment on above: Expected: 01/15/2022 , Expires: 03/17/2022 Start: 01-15-2022 End: 03-17-2022 CBC W Auto Differential panel - Blood CBC + DIFF Lab Routine Primary osteoarthritis of left shoulder Injury of tendon of long head of left biceps, initial encounter Preoperative testing Expected: 01/15/2022, Expires: 03/17/2022 [facility] Work Phone: Comment on above: Expected: 01/15/2022 , Expires: 03/17/2022 Start: 01-12-2022 End: 03-14-2022 Hemoglobin A1c in Blood HGB A1C Lab Routine Primary osteoarthritis of left shoulder Injury of tendon of long head of left biceps, initial encounter Preoperative testing Diabetes mellitus due to underlying condition with hyperglycemia, with long-term current use of insulin (HCC) Expected: 01/12/2022, Expires: 03/14/2022 [facility] Work Phone: Comment on above: Expected: 01/12/2022 , Expires: 03/14/2022 Start: 01-12-2022 End: 03-14-2022 TYPE + SCREEN TYPE + SCREEN Blood Bank Routine Primary osteoarthritis of left shoulder Injury of tendon of long head of left biceps, initial encounter Preoperative testing Expected: 01/12/2022, Expires: 03/14/2022 [facility] Work Phone: Comment on above: Expected: 01/12/2022 , Expires: 03/14/2022 Start: 01-10-2022 Influenza vaccination INFLUENZA (#1) [facility] Start: 08-18-2021 COVID-19 VACCINE (4 - Booster for Moderna series) COVID-19 VACCINE (4 - Booster for Moderna series) [facility] Start: 06-14-2021 COVID-19 VACCINE (4 - Booster for Moderna series) COVID-19 VACCINE (4 - Booster for Moderna series) [facility] Start: 06-14-2021 Covid-19 Vaccine (4 - Moderna series) Covid-19 Vaccine (4 - Moderna series) [facility] Start: 05-12-2021 ADVANCE DIRECTIVE DISCUSSION ADVANCE DIRECTIVE DISCUSSION [facility] Start: 05-12-2021 DEPRESSION ASSESSMENT DEPRESSION ASS ESSMENT [facility] Start: 12-08-2008 PNEUMOCOCCAL: 65+ (1 - PCV) PNEUMOCOCCAL: 65+ (1 - PCV) [facility] Start: 2003 Hepatitis B Vaccine (1 of 3 - Risk 3-dose series) Hepatitis B Vaccine (1 of 3 - Risk 3-dose series) [facility] Start: 12-08-1993 SHINGRIX VACCINE (1 of 2) QUESADA GRIX VACCINE (1 of 2) [facility] Start: 12-08-1988 DIABETES SCREEN [facility]ES [facility]CREEN [facility] Start: 12-08-1962 Urine microalbumin profile [facility] Start: 12-08-1961 ANNUAL PCP TEAM FISCAL ECONOMIST ESTEBAN DISEASE VISIT ANNUAL PCP TEAM CHRONIC DISEASE VISIT [facility] Start: 12-08-1961 BP CONTROLLED (<130/80) BP CONTROLLE D (<130/80) [facility] Start: 12-08-1961 HEPATITIS C SCREENING HEPATITIS C SC REENING [facility] Start: 1955 Adult depression scr eening assessment DEPRESSION SCREENING [facility] Start: 12-08-1953 3 comp foot exam completed DIABETIC FOOT EXAM [facility] Start: 12-08-1953 Hepatitis B screening URINE ALBUMIN:CREATININE RATIO [facility] Start: 12-08-1953 Hepatitis C antibody , confirmatory test DILATED RETINAL EXAM [facility] Start: 12-08-1949 Pneumococcal Vaccine : 65+ (1 - PCV) Pneumococcal Vaccine: 65+ (1 - PCV) [facility] Start: 12-08-1949 PNEUMOCOCCAL: 65+ (1 - PCV) PNEUMOCOCCAL: 65+ (1 - PCV) [facility] Start: 06-10-1944 COVID-19 VACCINE (#1) COVID-19 VACCI NE (#1) [facility] Bilirubin measuremen t, urine [facility] End: 01-24-2023 Ct upper extremity w/o contrast material CT SHOULDER WO IVCON LT Radiology Routine Primary osteoarthritis of left shoulder Chronic left shoulder pain 1 Occurrences starting 12/25/2021 until 01/24/2023 [facility] Work Phone: Comment on above: 1 Occurrences starti ng 12/25/2021 until 01/24/2023 End: 01-11-2023 ECG COMPLETE ECG COMPLETE ECG Routine Primary osteoarthritis of left shoulder Injury of tendon of long head of left biceps, initial encounter Preoperative testing 1 Occurrences starting 01/12/2022 until 01/11/2023 [facility] Work Phone: Comment on above: 1 Occurrences starti ng 01/12/2022 until 01/11/2023 Hemoglobin [Presence ] in Urine [facility] Measurement of keton es in urine using dipstick [facility] Work Phone: pH of Urine [facility] End: 02-10-2023 Radiologic exam chest 2 views XR CHEST 2V FRONTAL/LAT Radiology Routine Primary osteoarthritis of left shoulder Injury of tendon of long head of left biceps, initial encounter Preoperative testing 1 Occurrences starting 01/12/2022 until 02/10/2023 [facility] Work Phone: Comment on above: 1 Occurrences starti ng 01/12/2022 until 02/10/2023 Specific gravity of Urine [facility] Procedures Routine Primary osteoarthritis of left shoulder Injury of tendon of long head of left biceps, initial encounter Ordered: 01/12/2022 [facility] Work Phone: Comment on above: Ordered: 01/12/2022 Urine blood test [facility] Urine dipstick for glucose [facility] Urine dipstick for leukocyte esterase [facility] Urine dipstick for nitrite [facility] Urine dipstick for protein [facility] Urine examination [facility] Urine microscopy: epithelial cells [facility] Urine Microscopy: wh ite cells [facility] Urobilinogen [Presen ce] in Urine [facility] XR SHOULDER GENERAL 3V OR MORE AP/TRUE AP/OTHER LEFT XR SHOULDER GENERAL 3V OR MORE AP/TRUE AP/OTHER LEFT Radiology Routine Chronic pain of both shoulders Ordered: 12/17/2021 [facility] Work Phone: Comment on above: Ordered: 12/17/2021 XR SHOULDER GENERAL 3V OR MORE AP/TRUE AP/OTHER RIGHT XR SHOULDER GENERAL 3V OR MORE AP/TRUE AP/OTHER RIGHT Radiology Routine Chronic pain of both shoulders Ordered: 12/17/2021 [facility] Work Phone: Comment on above: Ordered: 12/17/2021 End: 04-25-2023 XR SHOULDER LIMITED 2V AP/TRUE AP LEFT XR SHOULDER LIMITED 2V AP/TRUE AP LEFT Radiology Routine Primary osteoarthritis of left shoulder 1 Occurrences starting 03/26/2022 until 04/25/2023 [facility] Work Phone: Comment on above: 1 Occurrences starti ng 03/26/2022 until 04/25/2023 [facility] [place] [facility] [place] [facility] Immunizations Immunization Date Immunization Notes Care Provider Geri reynoso 04-30-2022 Covid Moderna Bivale nt Booster Dr. Lucien Gramajo Work Phone: [facility] 04-16-2022 influenza, injectabl e, quadrivalent, preservative free Dr. Eligio Contreras MD Work Phone: [facility] 04-16-2022 influenza, seasonal, injectable Dr. Lucien Gramajo Work Phone: [facility] Work Phone: 04-19-2021 Covid (Moderna) Dr. Lucien Gramajo Work Phone: [facility] 08-10-2020 Covid (Moderna) Dr. Lucien Gramajo Work Phone: [facility] 07-13-2020 Covid (Moderna) Dr. Lucien Gramajo Work Phone: [facility] Payers Date Payer Category Payer Self-pay 2024 Unknown [id number] 2021 Unknown [id number] 2021 Unknown [id number] 2008 Medicare [id number] 2008 Medicare MEDICARE MEDICAR E A AND B [id number] 2008-Present [phone] [address] [address] [place] [address] Medicare [id number] 1945 Unknown [id number] 1945 Unknown [id number] 6 1945 Unknown [id number] 6 Unknown [id number] Unknown [id number] Unknown [id number] Unknown [id number] Unknown [id number] Unknown [id number] Unknown [id number] Unknown [id number] Unknown [id number] Unknown [id number] Social History Date Type Detail Facility Tobacco smoking stat [facility] Unknown if ever smoked [facility] Start: 1945 Sex Assigned At Not on file [facility] Start: 04-12-2022 Tobacco smoking status UTIS Tobacco smoking consumption unknown [facility] Start: 12-17-2021 Tobacco smoking status UTIS Ex-smoker [facility] History of tobacco use Current smoker [facility] History of tobacco use Cigarette Smoker [facility] History of tobacco use Cigar Smoker [facility] Start: 12-17-2021 Tobacco use and exposure Smokeless tobacco non-user [facility] Start: 12-17-2021 End: 03-26-2022 Alcohol intake Current drinker of alcohol (finding) [facility] Start: 12-17-2021 History SDOH Alcohol Comment not very often [facility] Start: 12-07-2021 End: 03-26-2022 Exposure to SARS-CoV-2 (event) Not sure [facility] Start: 02-07-2022 History SDOH Financial 4 [facility] Start: 02-07-2022 History SDOH Food Worry 1 [facility] Start: 02-07-2022 History SDOH Transport Med 2 [facility] esteban Start: 1945 Sex Assigned At Male [facility] Start: 04-20-2020 End: 03-26-2022 History of Social function [facility] Work Phone: Start: 04-20-2020 End: 03-26-2022 Tobacco use panel [facility] Work Phone: How hard is it for y ou to pay for the very basics like food, housing, medical care, and heating Not very hard [facility] Work Phone: (I/We) worried wheth er (my/our) food would run out before (I/we) got money to buy more. Never true [facility] Work Phone: In the past 12 month s, has lack of transportation kept you from medical appointments or from getting medications? No [facility] Work Phone: In the past 12 month s, was there a time when you were not able to pay the mortgage or rent on time? No [facility] Work Phone: Start: 08-31-2024 Tobacco smoking status NHIS Current some day smoker [facility] Start: 09-02-2024 Sex Male (finding) [facility] Medical Equipment Procedure Code Equipment Code Equipment Origin al Text Equipment Identifier Dates Stent Xact 8-6mm Taper Nickel Titanium 30mm Vascular Self Expandable - [id number] Start: 02-07-2022 Goals Date Patient Goal Desired Activity /State Functional Status Date Assessment Result Facility 09-02-2024 Functional status Chair [facility] Work Phone: 05-04-2022 Functional status Activity Abili ty With Assist of 2 [facility] Work Phone: 04-25-2022 Functional status Ambulates [facility] Work Phone: 03-14-2022 Functional status Bedrest [facility] Work Phone: Mental Status Date Assessment Result Facility 09-02-2024 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;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;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 [facility] Work Phone: 09-02-2024 Cognitive function Appropriate;Cooperativ e [facility] Work Phone: 05-04-2022 Cognitive function Voice/Name [facility] Work Phone: 03-14-2022 Cognitive function Voice/Name [facility] Work Phone: Clinical Notes 12-17-2021 to 09-02-2024 Note Date & Type Note Facility 09-02-2024 Consult note [facility] 09-02-2024 Consult note Note Date/Time September 02, 2024 3:48pm [facility] Medical Records Department [address] [place] [address] Counseling Note - Pharmacy 09/02/24 1158 MR#: [id number] Acct: [id number] Name: MIRI CAI Rep #:[id number] : 1945 78 From: Maggy Mcgee PCP: Dr. Eligio Conterras MD Status:ADM [facility] [place] [facility] Pharmacy Service has performed discharge medication reconciliation for this patient. The patient's discharge medication list was reviewed for discrepancies and discrepancies were resolved. Medications at Discharge Home Medications apixaban 5 mg tablet (Eliquis) 5 mg PO BID Check with primary doctor 02/19/22 atorvastatin 80 mg tablet 80 mg PO QHS cholesterol 02/19/22 clopidogrel 75 mg tablet (Plavix) 75 mg PO DAILY Check with primary doctor 02/19/22 metoprolol tartrate 50 mg tablet 50 mg PO BID BP 02/19/22 tamsulosin 0.4 mg capsule (Flomax) 0.4 mg PO DAILY retention 02/19/22 vit A 7,160 unit-vit C 113 mg-vit E 100 [id number] tablet 1 tab PO DAILY Check with primary doctor 02/19/22 doxazosin 1 mg tablet 1 mg PO QHS urine 04/12/22 menthol 0.44 %-zinc oxide 20.6 % topical ointment (Calmoseptine) 1 applic topical BID@0600,2200 cream 04/12/22 pantoprazole 40 mg tablet,delayed release 40 mg PO BID heartburn 04/12/22 sennosides 8.6 mg-docusate sodium 50 mg tablet (Stool Softener-Stimulant Laxative) 1 tab PO QHS constipation 04/12/22 Arthritis Pain Compound 0 click topical BID ##0 05/02/22 acetaminophen 500 mg tablet 1,000 mg (2 x 500 mg) PO Q8 #0 tabs 05/02/22 bisacodyl 10 mg rectal suppository 10 mg MI .PRN X 1 PRN Constipation #0 ea 05/02/22 food supplemt, lactose-reduced 0.08 gram-1.5 kcal/mL oral liquid (Ensure Plus High Protein) 120 ml PO 4X/DAY #0 mL 05/02/22 magnesium hydroxide 400 mg/5 mL oral suspension 30 ml PO .PRN X 1 PRN Constipation #0 mL 05/02/22 oxymetazoline 0.05 % nasal spray (Afrin (oxymetazoline)) 2 spray intranasal [id number] epistaxis 3 days #15 mL 05/02/22 sodium chloride 0.65 % nasal spray aerosol (Deep Sea Nasal) 1 spray NASAL ACHS #0 mL 05/02/22 loperamide 2 mg capsule (Anti-Diarrheal (loperamide)) 2 mg PO Q6H PRN loose stool 08/31/24 nystatin 100,000 unit/gram topical powder topical 08/31/24 sertraline 25 mg tablet 25 mg PO DAILY 08/31/24 tizanidine 4 mg tablet 4 mg PO QHS 08/31/24 guaifenesin 1,200 mg tablet, extended release 12 hr (Mucus Relief ER) 1,200 mg PO BID #0 tabs 09/02/24 prednisone 10 mg tablet 10 mg PO DAILY #40 tabs 09/02/24 09/02/24 1158 <Electronically signed by Maggy Mcgee> Date _ Maggy Mcgee Cosigner Signature (if applicable): Date CC: ~ Signed [facility] Work Phone: [phone] 315-700404-24-2025 Discharge summary Author Merary Wong [facility] Note Date/Time September 02, 2024 11: 07am [facility] Medical Records Department [address] [place] [address] Discharge Summary 09/02/24 1051 MR#: [id number] Acct: [id number] Name: MIRI CAI Rep #:[id number] : 1945 78 From: Merary Wong DO PCP: Dr. Eligio Contreras MD Status:ADM IN [facility] [facility] Providers Date of Admission: 08/31/24 Date of Discharge: 09/02/24 Primary Care Physician: Dr. Eligio Contreras MD Reason For Visit: RSV AND ACUTE BRONCHITIS Diagnosis Discharge Diagnosis (1) RSV infection: Status: Acute Code(s): B33.8 - Other specified viral diseases (2) Hypoxia: Status: Acute Code(s): R09.02 - Hypoxemia Medications at Discharge Home Medications apixaban 5 mg tablet (Eliquis) 5 mg PO BID Check with primary doctor 02/19/22 atorvastatin 80 mg tablet 80 mg PO QHS cholesterol 02/19/22 clopidogrel 75 mg tablet (Plavix) 75 mg PO DAILY Check with primary doctor 02/19/22 metoprolol tartrate 50 mg tablet 50 mg PO BID BP 02/19/22 tamsulosin 0.4 mg capsule (Flomax) 0.4 mg PO DAILY retention 02/19/22 vit A 7,160 unit-vit C 113 mg-vit E 100 [id number] tablet 1 tab PO DAILY Check with primary doctor 02/19/22 doxazosin 1 mg tablet 1 mg PO QHS urine 04/12/22 menthol 0.44 %-zinc oxide 20.6 % topical ointment (Calmoseptine) 1 applic topical BID@0600,2200 cream 04/12/22 pantoprazole 40 mg tablet,delayed release 40 mg PO BID heartburn 04/12/22 sennosides 8.6 mg-docusate sodium 50 mg tablet (Stool Softener-Stimulant Laxative) 1 tab PO QHS constipation 04/12/22 Arthritis Pain Compound 0 click topical BID ##0 05/02/22 acetaminophen 500 mg tablet 1,000 mg (2 x 500 mg) PO Q8 #0 tabs 05/02/22 bisacodyl 10 mg rectal suppository 10 mg MI .PRN X 1 PRN Constipation #0 ea 05/02/22 food supplemt, lactose-reduced 0.08 gram-1.5 kcal/mL oral liquid (Ensure Plus High Protein) 120 ml PO 4X/DAY #0 mL 05/02/22 magnesium hydroxide 400 mg/5 mL oral suspension 30 ml PO .PRN X 1 PRN Constipation #0 mL 05/02/22 oxymetazoline 0.05 % nasal spray (Afrin (oxymetazoline)) 2 spray intranasal [id number] epistaxis 3 days #15 mL 05/02/22 sodium chloride 0.65 % nasal spray aerosol (Deep Sea Nasal) 1 spray NASAL ACHS #0 mL 05/02/22 loperamide 2 mg capsule (Anti-Diarrheal (loperamide)) 2 mg PO Q6H PRN loose stool 08/31/24 nystatin 100,000 unit/gram topical powder topical 08/31/24 sertraline 25 mg tablet 25 mg PO DAILY 08/31/24 tizanidine 4 mg tablet 4 mg PO QHS 08/31/24 guaifenesin 1,200 mg tablet, extended release 12 hr (Mucus Relief ER) 1,200 mg PO BID #0 tabs 09/02/24 prednisone 10 mg tablet 10 mg PO DAILY #40 tabs 09/02/24 Hospital Course Operations None Procedures - (Chest x-ray) Summary of Care Provided Minutes Spent on Discharge: 36 Hospital Course: Mr. Cai is an 78-year-old white male who presented to the emergency department at [facility] on 08/31/2024 with chief complaint of shortness of breath, wheezing, and cough. Patient is wheelchair-bound at baseline and has chronic right-sided weakness and some expressive aphasia related to previous stroke. He is a resident at [facility] in [place] and they noted he was having some shortness of breath, wheezing, and a cough so theysent him to the emergency department. He was placed on azithromycin 250 mg daily x 5 days for presumed bronchitis however his oxygen saturations dropped to88% on room air so he was sent in for further evaluation. Vital signs on presentation showed temperature of 99.8, heart rate 78, respiratory rate 26, blood pressure 146/92 and pulse ox was initially 94% on room air however his oxygen saturations dropped and he required 2 L nasal cannula. CBC was unremarkable other than a monocytosis. Chemistry panel was unremarkable. He had mild hyperglycemia with a blood glucose of 124. Chest x-ray showed no acutefindings. COVID/flu/RSV PCR was performed and he was positive for RSV. Given his hypoxemia he required admission was placed on treatment for acute exacerbation of COPD. Patient does smoke cigars but does not inhale. He alsois reportedly a pipe smoker as well. He was initially significantly wheezy on exam. He was placed on scheduled nebulizers, steroids, and placed on status from a tree and Acapella as well as Mucinex. We were able to wean him off oxygen by 09/02/2024 and his oxygen saturations were 95% at rest on room air. Given the fact that he is not ambulatory baseline were unable to assess an ambulatory pulse ox. Given his significant improvement we are able to dischargehim back to his assisted living environment. He was at his baseline functional status as well. He was sent with a prednisone taper, ongoing Mucinex for the next 7 days and instructed to continue his incentive spirometer and Acapella 3-4times a day 10 times each for the next 7 days. He should avoid a lot of contactwith other people for the next 7 to 10 days due to his RSV infection and potential spread. Of asked that he follow-up with his primary care physician within the next week. Discharge diagnoses: Acute hypoxia Acute RSV infection Generalized weakness Debility History of stroke with chronic right-sided weakness Mobility issues Essential hypertension Hyperlipidemia Paroxysmal atrial fibrillation Carotid artery stenosis BPH with obstruction GERD Esophageal stenosis Depression Physical Exam Const alert, oriented x3, no apparent distress, no limitations and well nourished; Negative for average body habitus or healthy appearing Constitutional Narrative: Overweight, elderly, white male, sitting up in bed, watching television and eating breakfast, appears comfortable and nontoxic General Appearance: cooperative, comfortable, well kempt and well developed Exam Limitations: no limitations Nutritional Appearance: overweight HEENT normocephalic, head/scalp atraumatic and moist oral mucous membranes HEENT Narrative: Mallampati 2, no thrush, mild hearing loss Eyes conjunctivae normal Eyes Narrative: No scleral icterus Neck no lymphadenopathy and supple Neck Narrative: Trachea midline Resp normal respiratory effort, no retractions, no use of accessory muscles and No clear to auscultation bilaterally Resp Narrative: Scattered end expiratory wheezes Auscultation: wheezes; Negative for crackles, rales or rhonchi Cardio regular rate, regular rhythm, S1 normal heart sound, S2 normal heart sound, no murmurs, no rub, no gallops and no clicks GI normal to inspection, nondistended, normoactive bowel sounds, soft to palpation,non-tender and non-distended GI Narrative: Obese. Extremity no clubbing, cyanosis or edema Extremity Narrative: Pedal pulses are 2+, radial pulses are 2+ Skin skin turgor normal and no jaundice Neuro oriented x3, No moves all extremities and No no focal motor deficits Neuro Narrative: Patient with pretty significant right-sided weakness, flexion contracture at hand and elbow of upper extremity right lower extremity with some plantarflexioncontracture and decreased movement due to previous stroke Speech: speech normal Psych affect normal Psych Narrative: Very pleasant, interacts appropriately Weight / BMI Weight Weight: 92.6 kg Body Mass Index (BMI) 29.2 ABG / Lab / Microbiology Data 09/01/24 07:12 09/01/24 07:12 Laboratory: Laboratory Results - last 24 hr 09/02/24 06:02: Phosphorus 2.4 L Microbiology: Microbiology 08/31/24 20:50 Mucosa - Nose SARS-CoV-2, Influenza & RSV (PCR) - Final RSV D/C Instructions Discharge Diet: Low fat / Low cholesterol Discharge Activity: Return to Normal Activity DC O2, CPAP, BIPAP Needs Home O2 Discharge instructions: No Meaningful Use Info Meaningful Use Meaningful Use Diagnoses (Choose all that apply): None applicable Ischemic Stroke Statin Dosing Therapy Reference: STATIN DOSE THERAPY REFERENCE: * Patients > 75 years receive moderate or high dose statin therapy. * Patients 75 years or YOUNGER should receive HIGH intensity statin dose unless contraindicated. You will be required to document reason for non-treatment if statin daily dose does not meet guidelines. HIGH DOSE STATIN THERAPY DAILY Atorvastatin > than or = to 40 mg Rosuvastatin > than or = to 20 mg Amlodipine + Atorvastatin > than or = to 2.5/40 mg Ezetimibe + Simvastatin 10/80 mg Simvastatin 80mg Discharge Plan Admission Admit Date/Time: 08/31/24 22:59 Primary Reason for Your Visit: Shortness of breath/wheezing/cough Attending Provider: Merary Wong Primary Care Provider: Eligio Contreras Consulting Providers: Merary Wong; An Cassidy Instructions Additional Instructions / Restrictions: 1. You were diagnosed with RSV virus. 2. Please continue to use your incentive spirometer and Acapella after discharge for the next 7 to 10 days 3-4 times a day to help your lung function Discharge Orders/Prescriptions Prescriptions: New guaifenesin [Mucus Relief ER] 1,200 mg Tablet Extended Release 12hr 1,200 mg PO BID Qty: 0 0RF Rx Instructions: Take for the next 7 days prednisone 10 mg tablet 10 mg PO DAILY Qty: 40 0RF Rx Instructions: 4 tablets x 4 days, 3 tablets x 4 days, 2 tablets x 4 days, 1 tablet x 4 daysthen stop Continued atorvastatin 80 mg Tablet 80 mg PO QHS clopidogrel [Plavix] 75 mg Tablet 75 mg PO DAILY tamsulosin [Flomax] 0.4 mg Capsule 0.4 mg PO DAILY metoprolol tartrate 50 mg Tablet 50 mg PO BID Eliquis 5 mg Tablet 5 mg PO BID vit A-vit C-vit [id number] 7,160-113-100 [id number] Tablet 1 tab PO DAILY doxazosin 1 mg tablet 1 mg PO QHS sennosides-docusate sodium [Stool Softener-Stimulant Laxat] 8.6-50 mg tablet 1 tab PO QHS pantoprazole 40 mg tablet,delayed release (DR/EC) 40 mg PO BID menthol-zinc oxide [Calmoseptine] 0.44-20.6 % ointment 1 applic topical BID@0600,2200 Protocol: *Topical Application Instructions APPLICATION INSTRUCTIONS: apply to buttocks and coccyx acetaminophen 500 mg Tablet 1,000 mg PO Q8 Qty: 0 0RF Arthritis Pain Compound 0 click topical BID Qty: 0 0RF bisacodyl 10 mg Suppository 10 mg MI .PRN X 1 PRN (Reason: Constipation) Qty: 0 0RF Ensure Plus High Protein 0.08 gram-1.5 kcal/mL Liquid 120 ml PO 4X/DAY Qty: 0 0RF magnesium hydroxide 400 mg/5 mL Suspension 30 ml PO .PRN X 1 PRN (Reason: Constipation) Qty: 0 0RF Deep Sea Nasal 0.65 % Aerosol,[place] 1 spray NASAL ACHS Qty: 0 0RF oxymetazoline [Afrin (oxymetazoline)] 0.05 % spray,non-aerosol 2 spray intranasal Q12H PRN (Reason: epistaxis) 3 Days Qty: 15 0RF loperamide [Anti-Diarrheal (loperamide)] 2 mg capsule 2 mg PO Q6H PRN (Reason: loose stool) tizanidine 4 mg tablet 4 mg PO QHS sertraline 25 mg tablet 25 mg PO DAILY nystatin 100,000 unit/gram powder topical Discontinued azithromycin [Zithromax] 250 mg tablet 250 mg PO DAILY Rx Instructions: take for 4 days Referrals / Follow Up: Eligio Contreras MD [Primary Care Provider] - Within 1 Week Disposition Disposition (needs filled in before D/C Order can be placed): Assisted Living Charges/Coding Visit Charges Inpatient E&M: 46063 Disch Hosp >30min 09/02/24 1107 <Electronically signed by Merary Wong DO> Cosigner Signature (if applicable): CC: Dr. Eligio Contreras MD; Dr. Merary Wong DO~ Signed [facility] Work Phone: [phone] Discharge summary [facility] Medical Records Department [address] [place] [id number] Discharge Summary 09/02/24 1051 MR#: [id number] Acct: [id number] Name: MIRI CAI Rep #:[id number] : 1945 78 From: Merary Wong DO PCP: Dr. Eligio Contreras MD Status:ADM [facility] Prov[facility] Date of Admission: 08/31/24 Date of Discharge: 09/02/24 Primary Care Physician: Dr. Eligio Contreras MD Reason For Visit: RSV AND ACUTE BRONCHITIS Diagnosis Discharge Diagnosis (1) RSV infection: Status: Acute Code(s): B33.8 - Other specified viral diseases (2) Hypoxia: Status: Acute Code(s): R09.02 - Hypoxemia Medications at Discharge Home Medications apixaban 5 mg tablet (Eliquis) 5 mg PO BID Check with primary doctor 02/19/22 atorvastatin 80 mg tablet 80 mg PO QHS cholesterol 02/19/22 clopidogrel 75 mg tablet (Plavix) 75 mg PO DAILY Check with primary doctor 02/19/22 metoprolol tartrate 50 mg tablet 50 mg PO BID BP 02/19/22 tamsulosin 0.4 mg capsule (Flomax) 0.4 mg PO DAILY retention 02/19/22 vit A 7,160 unit-vit C 113 mg-vit E 100 [id number] tablet 1 tab PO DAILY Check with primary doctor 02/19/22 doxazosin 1 mg tablet 1 mg PO QHS urine 04/12/22 menthol 0.44 %-zinc oxide 20.6 % topical ointment (Calmoseptine) 1 applic topical BID@0600,2200 cream 04/12/22 pantoprazole 40 mg tablet,delayed release 40 mg PO BID heartburn 04/12/22 sennosides 8.6 mg-docusate sodium 50 mg tablet (Stool Softener-Stimulant Laxative) 1 tab PO QHS constipation 04/12/22 Arthritis Pain Compound 0 click topical BID ##0 05/02/22 acetaminophen 500 mg tablet 1,000 mg (2 x 500 mg) PO Q8 #0 tabs 05/02/22 bisacodyl 10 mg rectal suppository 10 mg MI .PRN X 1 PRN Constipation #0 ea 05/02/22 food supplemt, lactose-reduced 0.08 gram-1.5 kcal/mL oral liquid (Ensure Plus High Protein) 120 ml PO 4X/DAY #0 mL 05/02/22 magnesium hydroxide 400 mg/5 mL oral suspension 30 ml PO .PRN X 1 PRN Constipation #0 mL 05/02/22 oxymetazoline 0.05 % nasal spray (Afrin (oxymetazoline)) 2 spray intranasal [id number] epistaxis 3 days #15 mL 05/02/22 sodium chloride 0.65 % nasal spray aerosol (Deep Sea Nasal) 1 spray NASAL ACHS #0 mL 05/02/22 loperamide 2 mg capsule (Anti-Diarrheal (loperamide)) 2 mg PO Q6H PRN loose stool 08/31/24 nystatin 100,000 unit/gram topical powder topical 08/31/24 sertraline 25 mg tablet 25 mg PO DAILY 08/31/24 tizanidine 4 mg tablet 4 mg PO QHS 08/31/24 guaifenesin 1,200 mg tablet, extended release 12 hr (Mucus Relief ER) 1,200 mg PO BID #0 tabs 09/02/24 prednisone 10 mg tablet 10 mg PO DAILY #40 tabs 09/02/24 Hospital Course Operations None Procedures - (Chest x-ray) Summary of Care Provided Minutes Spent on Discharge: 36 Hospital Course: Mr. Cai is an 78-year-old white male who presented to the emergency department at [facility] on 08/31/2024 with chief complaint of shortness of breath, wheezing, and cough. Patient is wheelchair-bound at baseline and has chronic right-sided weakness and some expressive aphasia r elated to previous stroke. He is a resident at [facility] in [place] and they noted he was having some shortness of breath, wheezing, and a cough so theysent him to the emergency department. He was placed on azithromycin 250 mg daily x 5 days for presumed bronchitis however his oxygen saturations dropped to88% on room air so he was sent in for further evaluation. Vital signs on presentation showed temperature of 99.8, heart rate 78, respiratory rate 26, blood pressure 146/92 and pulse ox was initially 94% on room air however his oxygen saturations dropped and he required 2 L nasal cannula. CBC was unremarkable other than a monocytosis. Chemistry panel was unremarkable. He had mild hyperglycemia with a blood glucose of 124. Chest x-ray showed no acutefindings. COVID/flu/RSV PCR was performed and he was positive for RSV. Given his hypoxemia he required admission was placed on treatment for acute exacerbation of COPD. Patient does smoke cigars but does not inhale. He alsois reportedly a pipe smoker as well. He was initially significantly wheezy on exam. He was placed on scheduled nebulizers, steroids, and placed on status from a tree and Acapella as well as Mucinex. We were able to wean him off oxygen by 09/02/2024 and his oxygen saturations were 95% at rest on room air. Given the fact that he is not ambulatory baseline were unable to assess an ambulatory pulse ox. Given his significant improvement we are able to dischargehim back to his assisted living environment. He was at his baseline functional status as well. He was sent with a prednisone taper, ongoing Mucinex for the next 7 days and instructed to continue his incentive spirometer and Acapella 3-4times a day 10times each for the next 7 days. He should avoid a lot of contactwith other people for the next 7 to10 days due to his RSV infection and potential spread. Of asked that he follow-up with his primary care physician within the next week. Discharge diagnoses: Acute hypoxia Acute RSV infection Generalized weakness Debility History of stroke with chronic right-sided weakness Mobility issues Essential hypertension Hyperlipidemia Paroxysmal atrial fibrillation Carotid artery stenosis BPH with obstruction GERD Esophageal stenosis Depression Physical Exam Const alert, oriented x3, no apparent distress, no limitations and well nourished; Negative for average body habitus or healthy appearing Constitutional Narrative: Overweight, elderly, white male, sitting up in bed, watching television and eating breakfast, appears comfortable and nontoxic General Appearance: cooperative, comfortable, well kempt and well developed Exam Limitations: no limitations Nutritional Appearance: overweight HEENT normocephalic, head/scalp atraumatic and moist oral mucous membranes HEENT Narrative: Mallampati 2, no thrush, mild hearing loss Eyes conjunctivae normal Eyes Narrative: No scleral icterus Neck no lymphadenopathy and supple Neck Narrative: Trachea midline Resp normal respiratory effort, no retractions, no use of accessory muscles and No clear to auscultationbilaterally Resp Narrative: Scattered end expiratory wheezes Auscultation: wheezes; Negative for crackles, rales or rhonchi Cardio regular rate, regular rhythm, S1 normal heart sound, S2 normal heart sound, no murmurs, no rub, no gallops and no clicks GI normal to inspection, nondistended, normoactive bowel sounds, soft to palpation,non-tender and non-distended GI Narrative: Obese. Extremity no clubbing, cyanosis or edema Extremity Narrative: Pedal pulses are 2+, radial pulses are 2+ Skin skin turgor normal and no jaundice Neuro oriented x3, No moves all extremities and No no focal motor deficits Neuro Narrative: Patient with pretty significant right-sided weakness, flexion contracture at hand and elbow of upper extremity right lower extremity with some plantarflexioncontracture and decreased movement due to previous stroke Speech: speech normal Psych affect normal Psych Narrative: Very pleasant, interacts appropriately Weight / BMI Weight Weight: 92.6 kg Body Mass Index (BMI) 29.2 ABG / Lab / Microbiology Data 09/01/24 07:12 09/01/24 07:12 Laboratory: Laboratory Results - last 24 hr 09/02/24 06:02: Phosphorus 2.4 L Microbiology: Microbiology 08/31/24 20:50 Mucosa - Nose SARS-CoV-2, Influenza & RSV (PCR) - Final RSV D/C Instructions Discharge Diet: Low fat / Low cholesterol Discharge Activity: Return to Normal Activity DC O2, CPAP, BIPAP Needs Home O2 Discharge instructions: No Meaningful Use Info Meaningful Use Meaningful Use Diagnoses (Choose all that apply): None applicable Ischemic Stroke Statin Dosing Therapy Reference: STATIN DOSE THERAPY REFERENCE: * Patients > 75 years receive moderate or high dose statin therapy. * Patients 75 years or YOUNGER should receive HIGH intensity statin dose unless contraindicated. You will be required to document reason for non-treatment if statin daily dose does not meet guidelines. HIGH DOSE STATIN THERAPY DAILY Atorvastatin > than or = to 40 mg Rosuvastatin > than or = to 20 mg Amlodipine + Atorvastatin > than or = to 2.5/40 mg Ezetimibe + Simvastatin 10/80 mg Simvastatin 80mg Discharge Plan Admission Admit Date/Time: 08/31/24 22:59 Primary Reason for Your Visit: Shortness of breath/wheezing/cough Attending Provider: Merary Wong Primary Care Provider: Eligio Contreras Consulting Providers: Merary Wong; An Cassidy Instructions Additional Instructions / Restrictions: 1. You were diagnosed with RSV virus. 2. Please continue to use your incentive spirometer and Acapella after discharge for the next 7 to 10 days 3-4 times a day to help your lung function Discharge Orders/Prescriptions Prescriptions: New guaifenesin [Mucus Relief ER] 1,200 mg Tablet Extended Release 12hr 1,200 mg PO BID Qty: 0 0RF Rx Instructions: Take for the next 7 days prednisone 10 mg tablet 10 mg PO DAILY Qty: 40 0RF Rx Instructions: 4 tablets x 4 days, 3 tablets x 4 days, 2 tablets x 4 days, 1 tablet x 4 daysthen stop Continued atorvastatin 80 mg Tablet 80 mg PO QHS clopidogrel [Plavix] 75 mg Tablet 75 mg PO DAILY tamsulosin [Flomax] 0.4 mg Capsule 0.4 mg PO DAILY metoprolol tartrate 50 mg Tablet 50 mg PO BID Eliquis 5 mg Tablet 5 mg PO BID vit A-vit C-vit [id number] 7,160-113-100 [id number]-hb-dftf Tablet 1 tab PO DAILY doxazosin 1 mg tablet 1 mg PO QHS sennosides-docusate sodium [Stool Softener-Stimulant Laxat] 8.6-50 mg tablet 1 tab PO QHS pantoprazole 40 mg tablet,delayed release (DR/EC) 40 mg PO BID menthol-zinc oxide [Calmoseptine] 0.44-20.6 % ointment 1 applic topical BID@0600,2200 Protocol: *Topical Application Instructions APPLICATION INSTRUCTIONS: apply to buttocks and coccyx acetaminophen 500 mg Tablet 1,000 mg PO Q8 Qty: 0 0RF Arthritis Pain Compound 0 click topical BID Qty: 0 0RF bisacodyl 10 mg Suppository 10 mg MI .PRN X 1 PRN (Reason: Constipation) Qty: 0 0RF Ensure Plus High Protein 0.08 gram-1.5 kcal/mL Liquid 120 ml PO 4X/DAY Qty: 0 0RF magnesium hydroxide 400 mg/5 mL Suspension 30 ml PO .PRN X 1 PRN (Reason: Constipation) Qty: 0 0RF Deep Sea Nasal 0.65 % Aerosol,[place] 1 spray NASAL ACHS Qty: 0 0RF oxymetazoline [Afrin (oxymetazoline)] 0.05 % spray,non-aerosol 2 spray intranasal Q12H PRN (Reason: epistaxis) 3 Days Qty: 15 0RF loperamide [Anti-Diarrheal (loperamide)] 2 mg capsule 2 mg PO Q6H PRN (Reason: loose stool) tizanidine 4 mg tablet 4 mg PO QHS sertraline 25 mg tablet 25 mg PO DAILY nystatin 100,000 unit/gram powder topical Discontinued azithromycin [Zithromax] 250 mg tablet 250 mg PO DAILY Rx Instructions: take for 4 days Referrals / Follow Up: Eligio Contreras MD [Primary Care Provider] - Within 1 Week Disposition Disposition (needs filled in before D/C Order can be placed): Assisted Living Charges/Coding Visit Charges Inpatient E&M: 71994 Disch Hosp >30min 09/02/24 1107 Cosigner Signature (if applicable): CC: Dr. Eligio Contreras MD; Dr. Merary Wong DO~ Signed [facility]04-24-2025 [facility] Medical Records Department [address] [place] [address] Discharge Summary 09/02/24 1051 MR#: [id number] Acct: [id number] Name: MIRI CAI Rep #: [id number] : 1945 78 From: Merary Wong DO PCP: Dr. Eligio Contreras MD Status:ADM IN [place] [facility] Providers Date of Admission: 08/31/24 Date of Discharge: 09/02/24 Primary Care Physician: Dr. Eligio Contreras MD Reason For Visit: RSV AND ACUTE BRONCHITIS Diagnosis Discharge Diagnosis (1) RSV infection: Status: Acute Code(s): B33.8 - Other specified viral diseases (2) Hypoxia: Status: Acute Code(s): R09.02 - Hypoxemia Medications at Discharge Home Medications apixaban 5 mg tablet (Eliquis) 5 mg PO BID Check with primary doctor 02/19/22 atorvastatin 80 mg tablet 80 mg PO QHS cholesterol 02/19/22 clopidogrel 75 mg tablet (Plavix) 75 mg PO DAILY Check with primary doctor 02/19/22 metoprolol tartrate 50 mg tablet 50 mg PO BID BP 02/19/22 tamsulosin 0.4 mg capsule (Flomax) 0.4 mg PO DAILY retention 02/19/22 vit A 7,160 unit-vit C 113 mg-vit E 100 vwji-ornh-slwszr tablet 1 tab PO DAILY Check with primary doctor 02/19/22 doxazosin 1 mg tablet 1 mg PO QHS urine 04/12/22 menthol 0.44 %-zinc oxide 20.6 % topical ointment (Calmoseptine) 1 applic topical BID@0600,2200 cream 04/12/22 pantoprazole 40 mg tablet,delayed release 40 mg PO BID heartburn 04/12/22 sennosides 8.6 mg-docusate sodium 50 mg tablet (Stool Softener-Stimulant Laxative) 1 tab PO QHS constipation 04/12/22 Arthritis Pain Compound 0 click topical BID ##0 05/02/22 acetaminophen 500 mg tablet 1,000 mg (2 x 500 mg) PO Q8 #0 tabs 05/02/22 bisacodyl 10 mg rectal suppository 10 mg MI .PRN X 1 PRN Constipation #0 ea 05/02/22 food supplemt, lactose-reduced 0.08 gram-1.5 kcal/mL oral liquid (Ensure Plus High Protein) 120 ml PO 4X/DAY #0 mL 05/02/22 magnesium hydroxide 400 mg/5 mL oral suspension 30 ml PO .PRN X 1 PRN Constipation #0 mL 05/02/22 oxymetazoline 0.05 % nasal spray (Afrin (oxymetazoline)) 2 spray intranasal Q12H PRN epistaxis 3 days #15 mL 05/02/22 sodium chloride 0.65 % nasal spray aerosol (Deep Sea Nasal) 1 spray NASAL ACHS #0 mL 05/02/22 loperamide 2 mg capsule (Anti-Diarrheal (loperamide)) 2 mg PO Q6H PRN loose stool 08/31/24 nystatin 100,000 unit/gram topical powder topical 08/31/24 sertraline 25 mg tablet 25 mg PO DAILY 08/31/24 tizanidine 4 mg tablet 4 mg PO QHS 08/31/24 guaifenesin 1,200 mg tablet, extended release 12 hr (Mucus Relief ER) 1,200 mg PO BID #0 tabs 09/02/24 prednisone 10 mg tablet 10 mg PO DAILY #40 tabs 09/02/24 Hospital Course Operations None Procedures - (Chest x-ray) Summary of Care Provided Minutes Spent on Discharge: 36 Hospital Course: Mr. Cai is an 78-year-old white male who presented to the emergency department at [facility] on 08/31/2024 with chief complaint of shortness of breath, wheezing, and cough. Patient is wheelchair-bound at baseline and has chronic right-sided weakness and some expressive aphasia related to previous stroke. He is a resident at assisted living in [place] and they noted he was having some shortness of breath, wheezing, and a cough so they sent him to the emergency department. He was placed on azithromycin 250 mg daily x 5 days for presumed bronchitis however his oxygen saturations dropped to 88% on room air so he was sent in for further evaluation. Vital signs on presentation showed temperature of 99.8, heart rate 78, respiratory rate 26, blood pressure 146/92 and pulse ox was initially 94% on room air however his oxygen saturations dropped and he required 2 L nasal cannula. CBC was unremarkable other than a monocytosis. Chemistry panel was unremarkable. He had mild hyperglycemia with a blood glucose of 124. Chest x-ray showed no acute findings. COVID/flu/RSV PCR was performed and he was positive for RSV. Given his hypoxemia he required admission was placed on treatment for acute exacerbation of COPD. Patient does smoke cigars but does not inhale. He also is reportedly a pipe smoker as well. He was initially significantly wheezy on exam. He was placed on scheduled nebulizers, steroids, and placed on status from a tree and Acapella as well as Mucinex. We were able to wean him off oxygen by 09/02/2024 and his oxygen saturations were 95% at rest on room air. Given the fact that he is not ambulatory baseline were unable to assess an ambulatory pulse ox. Given his significant improvement we are able to discharge him back to his assisted living environment. He was at his baseline functional status as well. He was sent with a prednisone taper, ongoing Mucinex for the next 7 days and instructed to continue his incentive spirometer and Acapella 3-4 times a day 10 times each for the next 7 days. He should avoid a lot of contact with other people for the next 7 to 10 days due to (more content not included)...[facility]04-23-2025 Progress note Author Merary Wong [facility] Note Date/Time September 01, 2024 8:0 6pm [facility] Medical Records Department [address] [place] [address] Progress Note - Hospitalist 09/01/24 0840 MR#: [id number] Acct: [id number] Name: MIRI CAI Rep #:[id number] : 1945 78 From: Merary Wong DO PCP: Dr. Eligio Contreras MD Status:ADM IN Location: [facility] Reason for Visit Reason for Visit: Shortness of breath/wheezing/cough Subjective Subjective Patient states overall he does feel little bit better. Still on some oxygen. No specific complaints at this time. Denies any fevers or chills currently. States he smokes cigars but does not inhale. Objective Data Objective Data Vital Signs: Vital Signs Temp Pulse Resp BP Pulse Ox O2 Del Method O2 Flow Rate 98.2 F 77 18 134/73 H 96 Nasal Cannula 2 09/01/24 06:21 09/01/24 06:21 09/01/24 06:21 09/01/24 06:21 09/01/24 06:21 09/01/24 06:21 09/01/24 06:21 Oxygen Flow Rate (L/min) 2 Oxygen Delivery Method Nasal Cannula Weight: 92.7 kg Body Mass Index (BMI) 29.2 Intake & Output: Intake and Output for Last 24 Hours 08/30/24 08/31/24 09/01/24 23:59 23:59 23:59 Intake Total 1000 / 1000 100 / 100 Output Total 300 / 300 Balance 1000 / 1000 -200 / -200 Lab / Micro Data 09/01/24 07:12 09/01/24 07:12 Labs: Laboratory Results - last 24 hr 08/31/24 20:27: WBC 6.3, RBC 4.34 L, Hgb 13.1, Hct 38.6 L, MCV 88.9, MCH 30.2, MCHC 33.9, RDW Std Deviation 47.5 H, RDW Coeff of Juan 14.6, Plt Count 210, MPV 10.3, Immature Gran % (Auto) 0.200, Neut % (Auto) 69.2, Lymph % (Auto) 15.7 L, Durham % (Auto) 11.1 H, Eos % (Auto) 3.3, Baso % (Auto) 0.5, Absolute Neuts (auto) 4.4, Absolute Lymphs (auto) 0.99, Nucleated RBC % 0, Sodium 135, Potassium 4.1, Chloride 101, Carbon Dioxide 23.3, Anion Gap 10, BUN 14, Creatinine 0.95, Estim Creat Clear Calc 71.96, Est GFR (MDRD) Non-Af 81, BUN/Creatinine Ratio 14.9, Glucose 124 H, Calcium 9.3, Magnesium 1.8, TSH 4.360 H 09/01/24 07:12: WBC 6.3, RBC 4.22 L, Hgb 12.8 L, Hct 38.9 L, MCV 92.2, MCH 30.3,MCHC 32.9, RDW Std Deviation 49.1 H, RDW Coeff of Juan 14.6, Plt Count 195, MPV 10.1, Immature Gran % (Auto) 0.500, Neut % (Auto) 89.6 H, Lymph % (Auto) 8.0 L, Durham % (Auto) 1.7, Eos % (Auto) 0.2, Baso % (Auto) 0.0, Absolute Neuts (auto) 5.7, Absolute Lymphs (auto) 0.51 L, Nucleated RBC % 0, Sodium 134, Potassium 4.1, Chloride 103, Carbon Dioxide 19.5 L, Anion Gap 12, BUN 15, Creatinine 0.83,Estim Creat Clear Calc 81.20, Est GFR (MDRD) Non-Af 89, BUN/Creatinine Ratio 18.2, Glucose 173 H, Calcium 8.7, Phosphorus 3.4, Total Bilirubin 0.54, AST 24, ALT 25, Alkaline Phosphatase 93, Total Protein 6.2, Albumin 3.4, Globulin 2.7, Albumin/Globulin Ratio 1.3 Micro: Microbiology 08/31/24 20:50 Mucosa - Nose SARS-CoV-2, Influenza & RSV (PCR) - Final RSV Radiography Diagnostic Testing: Radiology Impression Chest X-Ray 08/31/24 20:50 IMPRESSION: Poor inspiration with some bibasilar atelectasis. Reading Location: [facility] [[email or web address] Physical Exam Const alert, oriented x3, no apparent distress and well nourished; Negative for average body habitus or healthy appearing Constitutional Narrative: Overweight, elderly, white male, sitting up in bed, watching television, appearscomfortable and nontoxic HEENT head/scalp atraumatic and moist oral mucous membranes HEENT Narrative: Mallampati is 3, no thrush Head and Scalp: normocephalic Eyes conjunctivae normal Neck supple Neck Narrative: Trachea midline Resp normal respiratory effort, no retractions, no use of accessory muscles and No clear to auscultation bilaterally Resp Narrative: Few fine crackles in bases bilaterally Auscultation: crackles; Negative for rales, rhonchi or wheezes Cardio regular rate, regular rhythm, S1 normal heart sound, S2 normal heart sound, no murmurs, no rub, no gallops and no clicks GI normal to inspection, nondistended, normoactive bowel sounds, soft to palpation and non-tender Extremity no clubbing, cyanosis or edema Extremity Narrative: Pedal pulses are 2+, radial pulses are 2+ Neuro oriented x3, No moves all extremities and No no focal motor deficits Neuro Narrative: Patient with pretty significant right-sided weakness, flexion contracture at hand and elbow of upper extremity right lower extremity with some plantarflexioncontracture and decreased movement due to previous stroke Speech: speech normal Psych affect normal Psych Narrative: Very pleasant, interacts appropriately Assessment & Plan Assessment/Plan (1) RSV infection: (2) Hypoxia: PLAN: Plan Acute hypoxia secondary to RSV infection - Rapid PCR was positive for RSV - Patient with no significant sputum production - Continue scheduled and as needed aerosols - Continue Solu-Medrol will change to 40 every 8 - Incentive spirometer - Acapella - Start Mucinex 1200 p.o. twice daily - Stop antibiotics as there does not seem to be a superimposed pneumonia - patient with significant monocytosis on presentation Generalized weakness/debility - PT/OT/speech therapy consultation -case management/social work consultation for assistance with discharge planningas patient may need home health - Patient currently resides at [facility] History of stroke with right-sided weakness - Patient is wheelchair-bound at baseline - PT/OT/speech therapy consultation as patient does have some expressive aphasia - Continue home Plavix - Continue apixaban - Continue secondary risk factors Essential hypertension/hyperlipidemia - Continue home metoprolol -Continue Cardura - Continue home atorvastatin Paroxysmal atrial fibrillation - Continue apixaban - Continue home metoprolol Carotid artery stenosis - Status post stent in left - Continue to modify risk factors BPH with obstruction -continue home Flomax GERD/esophageal stenosis - Continue home PPI - Patient with previous esophageal dilation Depression - Continue home sertraline DVT prophylaxis - Continue apixaban CODE STATUS - Verified with facility patient is DNR CCA with no intubation Charges/Coding Visit Charges Inpatient E&M: 42148 Subs Hosp L2 09/01/242005 <Electronically signed by Merary Wong DO> Cosigner Signature (if applicable): CC: ~ Signed [facility] Work Phone: [phone] Progress note [facility] Medical Records Department [address] [place] [address] Progress Note - Hospitalist 09/01/2440 MR#: [id number] Acct: [id number] Name: MIRI CAI Rep #:[id number] : 1945 78 From: Merary Wong DO PCP: Dr. Eligio Contreras MD Status:ADM IN [place] [facility] [place] Reason for Visit Reason for Visit: Shortness of breath/wheezing/cough Subjective Subjective Patient states overall he does feel little bit better. Still on some oxygen. No specific complaintsat this time. Denies any fevers or chills currently. States he smokes cigars but does not inhale. Objective Data Objective Data Vital Signs: Vital Signs Temp Pulse Resp BP Pulse Ox O2 Del Method O2 Flow Rate 98.2 F 77 18 134/73 H 96 Nasal Cannula 2 09/01/24 06:21 09/01/24 06:21 09/01/24 06:21 09/01/24 06:21 09/01/24 06:21 09/01/24 06:21 09/01/24 06:21 Oxygen Flow Rate (L/min) 2 Oxygen Delivery Method Nasal Cannula Weight: 92.7 kg Body Mass Index (BMI) 29.2 Intake & Output: Intake and Output for Last 24 Hours 08/30/24 08/31/24 09/01/24 23:59 23:59 23:59 Intake Total 1000 / 1000 100 / 100 Output Total 300 / 300 Balance 1000 / 1000 -200 / -200 Lab / Micro Data 09/01/24 07:12 09/01/24 07:12 Labs: Laboratory Results - last 24 hr 08/31/24 20:27: WBC 6.3, RBC 4.34 L, Hgb 13.1, Hct 38.6 L, MCV 88.9, MCH 30.2, MCHC 33.9, RDW Std Deviation 47.5 H, RDW Coeff of Juan 14.6, Plt Count 210, MPV 10.3, Immature Gran % (Auto) 0.200, Neut % (Auto) 69.2, Lymph % (Auto) 15.7 L, Durham % (Auto) 11.1 H, Eos % (Auto) 3.3, Baso % (Auto) 0.5, Absolute Neuts (auto) 4.4, Absolute Lymphs (auto) 0.99, Nucleated RBC % 0, Sodium 135, Potassium 4.1, Chloride 101, Carbon Dioxide 23.3, Anion Gap 10, BUN 14, Creatinine 0.95, Estim Creat Clear Calc 71.96, Est GFR (MDRD) Non-Af 81, BUN/Creatinine Ratio 14.9, Glucose 124 H, Calcium 9.3, Magnesium 1.8, TSH 4.360 H 09/01/24 07:12: WBC 6.3, RBC 4.22 L, Hgb 12.8 L, Hct 38.9 L, MCV 92.2, MCH 30.3,MCHC 32.9, RDW Std Deviation 49.1 H, RDW Coeff of Juan 14.6, Plt Count 195, MPV 10.1, Immature Gran % (Auto) 0.500, Neut% (Auto) 89.6 H, Lymph % (Auto) 8.0 L, Durham % (Auto) 1.7, Eos % (Auto) 0.2, Baso % (Auto) 0.0, Absolute Neuts (auto) 5.7, Absolute Lymphs (auto) 0.51 L, Nucleated RBC % 0, Sodium 134, Potassium 4.1, Chloride 103, Carbon Dioxide 19.5 L, Anion Gap 12, BUN 15, Creatinine 0.83,Estim Creat Clear Calc 81.20, Est GFR (MDRD) Non-Af 89, BUN/Creatinine Ratio 18.2, Glucose 173 H, Calcium 8.7, Phosphorus 3.4, Total Bilirubin 0.54, AST 24, ALT 25, Alkaline Phosphatase 93, Total Protein 6.2, Albumin 3.4, Glob ulin 2.7, Albumin/Globulin Ratio 1.3 Micro: Microbiology 08/31/24 20:50 Mucosa - Nose SARS-CoV-2, Influenza & RSV (PCR) - Final RSV Radiography Diagnostic Testing: Radiology Impression Chest X-Ray 08/31/24 20:50 IMPRESSION: Poor inspiration with some bibasilar atelectasis. Reading Location: [id number] Physical Exam Const alert, oriented x3, no apparent distress and well nourished; Negative for average body habitus or healthy appearing Constitutional Narrative: Overweight, elderly, white male, sitting up in bed, watching television, appearscomfortable and nontoxic HEENT head/scalp atraumatic and moist oral mucous membranes HEENT Narrative: Mallampati is 3, no thrush Head and Scalp: normocephalic Eyes conjunctivae normal Neck supple Neck Narrative: Trachea midline Resp normal respiratory effort, no retractions, no use of accessory muscles and No clear to auscultationbilaterally Resp Narrative: Few fine crackles in bases bilaterally Auscultation: crackles; Negative for rales, rhonchi or wheezes Cardio regular rate, regular rhythm, S1 normal heart sound, S2 normal heart sound, no murmurs, no rub, no gallops and no clicks GI normal to inspection, nondistended, normoactive bowel sounds, soft to palpation and non-tender Extremity no clubbing, cyanosis or edema Extremity Narrative: Pedal pulses are 2+, radial pulses are 2+ Neuro oriented x3, No moves all extremities and No no focal motor deficits Neuro Narrative: Patient with pretty significant right-sided weakness, flexion contracture at hand and elbow of upper extremity right lower extremity with some plantarflexioncontracture and decreased movement due to previous stroke Speech: speech normal Psych affect normal Psych Narrative: Very pleasant, interacts appropriately Assessment & Plan Assessment/Plan (1) RSV infection: (2) Hypoxia: PLAN: Plan Acute hypoxia secondary to RSV infection - Rapid PCR was positive for RSV - Patient with no significant sputum production - Continue scheduled and as needed aerosols - Continue Solu-Medrol will change to 40 every 8 - Incentive spirometer - Acapella - Start Mucinex 1200 p.o. twice daily - Stop antibiotics as there does not seem to be a superimposed pneumonia - patient with significant monocytosis on presentation Generalized weakness/debility - PT/OT/speech therapy consultation -case management/social work consultation for [facility] - Patient currently resides at [facility] History of stroke with right-sided weakness - Patient is wheelchair-bound at baseline - PT/OT/speech therapy consultation as patient does have some expressive aphasia - Continue home Plavix - Continue apixaban - Continue secondary risk factors Essential hypertension/hyperlipidemia - Continue home metoprolol -Continue Cardura - Continue home atorvastatin Paroxysmal atrial fibrillation - Continue apixaban - Continue home metoprolol Carotid artery stenosis - Status post stent in left - Continue to modify risk factors BPH with obstruction -continue home Flomax GERD/esophageal stenosis - Continue home PPI - Patient with previous esophageal dilation Depression - Continue home sertraline DVT prophylaxis - Continue apixaban CODE STATUS - Verified with facility patient is DNR CCA with no intubation Charges/Coding Visit Charges Inpatient E&M: 39469 Subs Hosp L2 09/01/242005 Cosigner Signature (if applicable): CC: ~ Signed [facility]04-23-2025 History and physical note Author An Multani [facility] Note Date/Time September 01, 2024 6:1 3am [facility] Medical Records Department [address] [place] [id number] H&P Exam - Hospitalist 08/31/242212 MR#: [id number] Acct: [id number] Name: MIRI CAI Rep #:[id number] : 1945 78 From: An Salazar DO PCP: Dr. Eligio Contreras MD Status:ADM IN Location: [place] [id number] HPI - General General Date of Admission: 08/31/24 Date of Service: 08/31/24 Chief Complaint: SOB, Wheezing and Cough. HPI Narrative MIRI CAI, is a 78 M with a past medical history of essential hypertension; on metoprolol tartrate twice daily, hyperlipidemia; on high-dose atorvastatin, obesity; with BMI of 30.2 this admission, history of DM-2; currently not on treatment, history of atrial fibrillation; on apixaban, historyof CVA; with severe expressive aphasia and chronic Right-sided weakness on clopidogrel with patient wheelchair-bound at baseline, history of Left internal carotid artery stenosis; s/p stent, history of skin cancer, history of cataract surgery, depression; on sertraline, BPH; on tamsulosin and doxazosin, history ofGERD with esophageal stenosis; s/p esophageal dilatation on pantoprazole twice daily and OA; s/p Left total shoulder replacement who presents to [facility] ER after staff at [facility] noted patient was having shortness of breath, wheezing and cough. Mr. Cai is not a reliable historian at this time so information was gathered from chart, medical staff andcomputer. According to the records the patient had already previously been started on oral azithromycin earlier today for presumed bronchitis but when his saturations on room air dropped to 88% he was sent in for further evaluation andtreatment. Shortly after arrival he was noted to have a low-grade fever of 99.8?F with multiple people at that facility noted to have RSV. In the ER he was diagnosed with acute RSV infection complicated by clinical evidence of Acute Bronchitis along with severe wheezing causing Acute Respiratory Insufficiency and he was then admitted to the general medical floor with telemetric monitoringfor a stay that is expected to extend beyond 2 midnights. [facility] Medical History Esophageal stenosis History of left common carotid artery stent placement Hyperlipidemia Hypertension Atrial fibrillation History of skin cancer Stenosis of left internal carotid artery Stroke Cataract Afib Diabetes Home Medications ?Medication ?Instructions ?Recorded ?Last Taken ?Type apixaban 5 mg tablet (Eliquis) 5 mg PO BID Check with primary 02/19/22 Unknown History doctor atorvastatin 80 mg tablet 80 mg PO QHS cholesterol 04/02 Unknown History clopidogrel 75 mg tablet (Plavix) 75 mg PO DAILY Check with primary 02/19/22 Unknown History doctor metoprolol tartrate 50 mg tablet 50 mg PO BID BP 02/19 Unknown History tamsulosin 0.4 mg capsule (Flomax) 0.4 mg PO DAILY ret ention 02/19/22 02/19/22 08:30 History vit A 7,160 unit-vit C 113 mg-vit 1 tab PO DAILY Check with primary 02/19/22 Unknown History E 100 [id number] tablet doctor doxazosin 1 mg tablet 1 mg PO QHS urine 04/12/22 U nknown History menthol 0.44 %-zinc oxide 20.6 % 1 applic topical BID@ 0600,2200 04/12/22 Unknown History topical ointment (Calmoseptine) cream pantoprazole 40 mg tablet,delayed 40 mg PO BID heartbu rn 04/12/22 Unknown History release sennosides 8.6 mg-docusate sodium 1 tab PO QHS constip ation 04/12/22 Unknown History 50 mg tablet (Stool Softener-Stimulant Laxative) Arthritis Pain Compound 0 click topical BID ##0 04/12 07/03 Unknown Rx acetaminophen 500 mg tablet 1,000 mg (2 x 500 mg) PO Q 8 #0 tabs 05/02/22 Unknown Rx bisacodyl 10 mg rectal suppository 10 mg MI .PRN X 1 P RN Constipation 05/02/22 Unknown Rx #0 ea food supplemt, lactose-reduced 120 ml PO 4X/DAY #0 mL 05/02/22 Unknown Rx 0.08 gram-1.5 kcal/mL oral liquid (Ensure Plus High Protein) magnesium hydroxide 400 mg/5 mL 30 ml PO .PRN X 1 PRN Constipation 05/02/22 Unknown Rx oral suspension #0 mL oxymetazoline 0.05 % nasal spray 2 spray intranasal Q1 2H PRN 05/02/22 Unknown Rx (Afrin (oxymetazoline)) epistaxis 3 days #15 mL sodium chloride 0.65 % nasal spray 1 spray NASAL ACHS #0 mL 05/02/22 Unknown Rx aerosol (Deep Sea Nasal) azithromycin 250 mg tablet 250 mg PO DAILY 08/31/24 Un known History (Zithromax) loperamide 2 mg capsule 2 mg PO Q6H PRN loose stool 08/31/24 Unknown History (Anti-Diarrheal (loperamide)) nystatin 100,000 unit/gram topical topical 08/31/24 Un known History powder sertraline 25 mg tablet 25 mg PO DAILY 08/31/24 Unkn own History tizanidine 4 mg tablet 4 mg PO QHS 08/31/24 Unknown History Allergy/AdvReac Type Severity Reaction Status Date / Time No Known Allergies Allergy Verified 08/31/24 20:13 Family History no significant family his Surgical History Status post dilation of esophageal narrowing History of left shoulder replacement History of cataract surgery History of left shoulder replacement Social History household members: none Smoking Status: Current some day smoker tobacco type: pipe and cigars alcohol intake: current alcohol intake frequency: holidays/special occasions only substance use type: does not use ROS ROS Narrative Full review of systems was not possible due to patient's expressive aphasia and acute illness. Vital Signs Vital Signs Vital Signs: 08/31/24 20:14 08/31/24 20:20 08/31/24 20:22 Temperature 99.8 F H 99.8 F H Temperature Source Oral Oral Pulse Rate 78 82 Respiratory Rate 26 H 24 H Respiratory Effort Short of Breath Respiratory Pattern Tachypnea Blood Pressure 146/92 H 146/92 H Blood Pressure Mean 110 110 Pulse Ox 94 94 Oxygen Delivery Method Room Air Room Air Room Air 08/31/24 21:07 08/31/24 21:20 Temperature 98.2 F Temperature Source Oral Pulse Rate 71 80 Respiratory Rate 18 24 H Respiratory Effort Respiratory Pattern Blood Pressure 126/94 H Blood Pressure Mean 104 Pulse Ox 93 Oxygen Delivery Method Room Air Weight Weight: 210 lb 12.191 oz Body Mass Index (BMI) 30.2 Physical Exam Const alert, oriented x3 and no apparent distress Constitutional Narrative: Obese and chronically ill in appearance. General Appearance: cooperative HEENT normocephalic, head/scalp atraumatic, hearing grossly normal bilaterally and moist oral mucous membranes Eyes PERRL, EOMs intact bilaterally and conjunctivae normal Neck no lymphadenopathy and supple Resp Resp Narrative: Diminished breath sounds throughout with expiratory wheezes and rhonchi. Auscultation: rhonchi and wheezes Cardio regular rate and regular rhythm GI normal to inspection, nondistended, normoactive bowel sounds, soft to palpation,non-tender and non-distended GI Narrative: Obese. Extremity normal to inspection, full ROM and no clubbing, cyanosis or edema Skin Skin Narrative: Patient has evidence of rash, abscess, wounds or jaundice. Neuro Neuro Narrative: Patient has chronic Right-sided weakness with expressive aphasia which is apparently unchanged from previous. Sensorium / Orientation: awake, alert, oriented to person and oriented to place Speech: speech normal Psych affect normal Results Medical Records Data Attestation: I reviewed the patient's medical records Lab / Micro Data Attestation: I reviewed the patient's lab results. 08/31/24 20:27 08/31/24 20:27 Labs: Laboratory Results - last 24 hr 08/31/24 20:27: WBC 6.3, RBC 4.34 L, Hgb 13.1, Hct 38.6 L, MCV 88.9, MCH 30.2, MCHC 33.9, RDW Std Deviation 47.5 H, RDW Coeff of Juan 14.6, Plt Count 210, MPV 10.3, Immature Gran % (Auto) 0.200, Neut % (Auto) 69.2, Lymph % (Auto) 15.7 L, Durham % (Auto) 11.1 H, Eos % (Auto) 3.3, Baso % (Auto) 0.5, Absolute Neuts (auto) 4.4, Absolute Lymphs (auto) 0.99, Nucleated RBC % 0, Sodium 135, Potassium 4.1, Chloride 101, Carbon Dioxide 23.3, Anion Gap 10, BUN 14, Creatinine 0.95, Estim Creat Clear Calc 71.96, Est GFR (MDRD) Non-Af 81, BUN/Creatinine Ratio 14.9, Glucose 124 H, Calcium 9.3 Micro: Microbiology 08/31/24 20:50 Mucosa - Nose SARS-CoV-2, Influenza & RSV (PCR) - Final RSV Imaging Radiology Impression Chest X-Ray 08/31/24 20:50 IMPRESSION: Poor inspiration with some bibasilar atelectasis. Reading Location: [id number] Assessment & Plan Assessment/Plan (1) Acute bronchitis due to respiratory syncytial virus: (2) Acute bronchospasm: (3) Respiratory insufficiency: (4) History of CVA with residual deficit: (5) Right hemiplegia: (6) Obesity (BMI 30-39.9): (7) History of atrial fibrillation: (8) Anticoagulated: PLAN: Plan 1. RSV infection complicated by clinical evidence of Acute Bronchitis causing Acute Bronchospasm - Admit to general medical floor with telemetric monitoring under contact and droplet precautions. Continue IV azithromycin and start IV methylprednisolone with scheduled and as needed nebulizers. Give vitamin D3, vitamin C and zinc to help boost immunity and hopefully speed recovery. Give acetaminophen as needed for pain or fever. 2. Acute Respiratory Insufficiency attributable to #1 - Wean supplemental oxygen as tolerated. 3. History of CVA; with severe expressive aphasia and chronic Right-sided weakness on clopidogrel with patient wheelchair-bound at baseline complicating #1 & #2 - Noted with PT/OT and case management consult and treat on rounds in a.m. with help appreciated in advance. 4. Obesity; with BMI of 30.2 this admission adding to the burden of disease outlined from #1 - #3 - Weight loss will be recommended. Check TSH. This complicates his case and may hamper recovery. 5. History of atrial fibrillation; on apixaban adding to the medical complexityof #1 - #4 - Maintain apixaban as previous. 6. Essential hypertension; on metoprolol tartrate twice daily - Resume current treatment. 7. Hyperlipidemia; on high-dose atorvastatin - Continue statin as before. 8. History of DM-2; currently not on treatment - Check hemoglobin A1c to confirm status. 9. History of Left internal carotid artery stenosis; s/p stent - Noted. 10. History of skin cancer - Noted. 11. History of cataract surgery - Noted. 12. Depression; on sertraline - Maintain current therapy. 13. BPH; on tamsulosin and doxazosin - Current regimen to be continued. 14. History of GERD with esophageal stenosis; s/p esophageal dilatation on pantoprazole twice daily - Resume PPI as previous. 15. OA; s/p Left total shoulder replacement - Give acetaminophen as needed as outlined in #1. 16. DVT prophylaxis - Patient is already on apixaban for #5 which will be continued. Total time: Approximately (but not less than) 75 minutes. Charges/Coding Visit Charges Inpatient E&M: 58712 Init Hosp L3 09/01/24 0613 <Electronically signed by An Cassidy DO> Cosigner Signature (if applicable): CC: Dr. Eligio Contreras MD; Dr. An Cassidy DO~ Signed [facility] Work Phone: [phone] 164-460504-23-2025 History and physical note [facility] Medical Records Department [address] [place] [id number] H&P Exam - Hospitalist 08/31/242212 MR#: [id number] Acct: [id number] Name: MIRI CAI Rep #:[id number] : 1945 78 From: An Salazar DO PCP: Dr. Eligio Contreras MD Status:ADM IN [place] [facility] [place] - General General Date of Admission: 08/31/24 Date of Service: 08/31/24 Chief Complaint: SOB, Wheezing and Cough. HPI Narrative MIRI CAI, is a 78 M with a past medical history of essential hypertension; on metoprolol tartrate twice daily, hyperlipidemia; on high-dose atorvastatin, obesity; with BMI of 30.2 this admission, history of DM-2; currently not on treatment, history of atrial fibrillation; on apixaban, histor yof CVA; with severe expressive aphasia and chronic Right-sided weakness on clopidogrel with patient wheelchair-bound at baseline, history of Left internal carotid artery stenosis; s/p stent, historyof skin cancer, history of cataract surgery, depression; on sertraline, BPH; on tamsulosin and doxazosin, history ofGERD with esophageal stenosis; s/p esophageal dilatation on pantoprazole twice daily and OA; s/p Left total shoulder replacement who presents to [facility] ER after staff at [facility] noted patient was having shortness of breath, wheezing and cough. Mr. Cai is not a reliable historian at this time so information was gathered from chart, medical staff andcomputer. According to the records the patient had already previously been started on oral azithromycin earlier today for presumed bronchitis but when his saturations on room air dropped to 88% he wassent in for further evaluation andtreatment. Shortly after arrival he was noted to have a low-gradefever of 99.8?F with multiple people at that facility noted to have RSV. In the ER he was diagnosedwith acute RSV infection complicated by clinical evidence of Acute Bronchitis along with severe wheezing causing Acute Respiratory Insufficiency and he was then admitted to the general medical floor with telemetric monitoringfor a stay that is expected to extend beyond 2 midnights. [facility] Medical History Esophageal stenosis History of left common carotid artery stent placement Hyperlipidemia Hypertension Atrial fibrillation History of skin cancer Stenosis of left internal carotid artery Stroke Cataract Afib Diabetes Home Medications ?Medication ?Instructions ?Recorded ?Last Taken ?Type apixaban 5 mg tablet (Eliquis) 5 mg PO BID Check with primary 02/19/22 Unknown History doctor atorvastatin 80 mg tablet 80 mg PO QHS cholesterol 04/02 Unknown History clopidogrel 75 mg tablet (Plavix) 75 mg PO DAILY Check with primary 02/19/22 Unknown History doctor metoprolol tartrate 50 mg tablet 50 mg PO BID BP 02/19 Unknown History tamsulosin 0.4 mg capsule (Flomax) 0.4 mg PO DAILY ret ention 02/19/22 02/19/22 08:30 History vit A 7,160 unit-vit C 113 mg-vit 1 tab PO DAILY Check with primary 02/19/22 Unknown History E 100 aiuk-eaaf-yxhpqe tablet doctor doxazosin 1 mg tablet 1 mg PO QHS urine 04/12/22 U nknown History menthol 0.44 %-zinc oxide 20.6 % 1 applic topical BID@ 0600,2200 04/12/22 Unknown History topical ointment (Calmoseptine) cream pantoprazole 40 mg tablet,delayed 40 mg PO BID heartbu rn 04/12/22 Unknown History release sennosides 8.6 mg-docusate sodium 1 tab PO QHS constip ation 04/12/22 Unknown History 50 mg tablet (Stool Softener-Stimulant Laxative) Arthritis Pain Compound 0 click topical BID ##0 04/12 07/03 Unknown Rx acetaminophen 500 mg tablet 1,000 mg (2 x 500 mg) PO Q 8 #0 tabs 05/02/22 Unknown Rx bisacodyl 10 mg rectal suppository 10 mg MI .PRN X 1 P RN Constipation 05/02/22 Unknown Rx #0 ea food supplemt, lactose-reduced 120 ml PO 4X/DAY #0 mL 05/02/22 Unknown Rx 0.08 gram-1.5 kcal/mL oral liquid (Ensure Plus High Protein) magnesium hydroxide 400 mg/5 mL 30 ml PO .PRN X 1 PRN Constipation 05/02/22 Unknown Rx oral suspension #0 mL oxymetazoline 0.05 % nasal spray 2 spray intranasal Q1 2H PRN 05/02/22 Unknown Rx (Afrin (oxymetazoline)) epistaxis 3 days #15 mL sodium chloride 0.65 % nasal spray 1 spray NASAL ACHS #0 mL 05/02/22 Unknown Rx aerosol (Deep Sea Nasal) azithromycin 250 mg tablet 250 mg PO DAILY 08/31/24 Un known History (Zithromax) loperamide 2 mg capsule 2 mg PO Q6H PRN loose stool 08/31/24 Unknown History (Anti-Diarrheal (loperamide)) nystatin 100,000 unit/gram topical topical 08/31/24 Un known History powder sertraline 25 mg tablet 25 mg PO DAILY 08/31/24 Unkn own History tizanidine 4 mg tablet 4 mg PO QHS 08/31/24 Unknown History Allergy/AdvReac Type Severity Reaction Status Date / Time No Known Allergies Allergy Verified 08/31/24 20:13 Family History no significant family his Surgical History Status post dilation of esophageal narrowing History of left shoulder replacement History of cataract surgery History of left shoulder replacement Social History household members: none Smoking Status: Current some day smoker tobacco type: pipe and cigars alcohol intake: current alcohol intake frequency: holidays/special occasions only substance use type: does not use ROS ROS Narrative Full review of systems was not possible due to patient's expressive aphasia and acute illness. Vital Signs Vital Signs Vital Signs: 08/31/24 20:14 08/31/24 20:20 08/31/24 20:22 Temperature 99.8 F H 99.8 F H Temperature Source Oral Oral Pulse Rate 78 82 Respiratory Rate 26 H 24 H Respiratory Effort Short of Breath Respiratory Pattern Tachypnea Blood Pressure 146/92 H 146/92 H Blood Pressure Mean 110 110 Pulse Ox 94 94 Oxygen Delivery Method Room Air Room Air Room Air 08/31/24 21:07 08/31/24 21:20 Temperature 98.2 F Temperature Source Oral Pulse Rate 71 80 Respiratory Rate 18 24 H Respiratory Effort Respiratory Pattern Blood Pressure 126/94 H Blood Pressure Mean 104 Pulse Ox 93 Oxygen Delivery Method Room Air Weight Weight: 210 lb 12.191 oz Body Mass Index (BMI) 30.2 Physical Exam Const alert, oriented x3 and no apparent distress Constitutional Narrative: Obese and chronically ill in appearance. General Appearance: cooperative HEENT normocephalic, head/scalp atraumatic, hearing grossly normal bilaterally and moist oral mucous membranes Eyes PERRL, EOMs intact bilaterally and conjunctivae normal Neck no lymphadenopathy and supple Resp Resp Narrative: Diminished breath sounds throughout with expiratory wheezes and rhonchi. Auscultation: rhonchi and wheezes Cardio regular rate and regular rhythm GI normal to inspection, nondistended, normoactive bowel sounds, soft to palpation,non-tender and non-distended GI Narrative: Obese. Extremity normal to inspection, full ROM and no clubbing, cyanosis or edema Skin Skin Narrative: Patient has evidence of rash, abscess, wounds or jaundice. Neuro Neuro Narrative: Patient has chronic Right-sided weakness with expressive aphasia which is apparently unchanged fromprevious. Sensorium / Orientation: awake, alert, oriented to person and oriented to place Speech: speech normal Psych affect normal Results Medical Records Data Attestation: I reviewed the patient's medical records Lab / Micro Data Attestation: I reviewed the patient's lab results. 08/31/24 20:27 08/31/24 20:27 Labs: Laboratory Results - last 24 hr 08/31/24 20:27: WBC 6.3, RBC 4.34 L, Hgb 13.1, Hct 38.6 L, MCV 88.9, MCH 30.2, MCHC 33.9, RDW Std Deviation 47.5 H, RDW Coeff of Juan 14.6, Plt Count 210, MPV 10.3, Immature Gran % (Auto) 0.200, Neut % (Auto) 69.2, Lymph % (Auto) 15.7 L, Durham % (Auto) 11.1 H, Eos % (Auto) 3.3, Baso % (Auto) 0.5, Absolute Neuts (auto) 4.4, Absolute Lymphs (auto) 0.99, Nucleated RBC % 0, Sodium 135, Potassium 4.1, Chloride 101, Carbon Dioxide 23.3, Anion Gap 10, BUN 14, Creatinine 0.95, Estim Creat Clear Calc 71.96, Est GFR (MDRD) Non-Af 81, BUN/Creatinine Ratio 14.9, Glucose 124 H, Calcium 9.3 Micro: Microbiology 08/31/24 20:50 Mucosa - Nose SARS-CoV-2, Influenza & RSV (PCR) - Final RSV Imaging Radiology Impression Chest X-Ray 08/31/24 20:50 IMPRESSION: Poor inspiration with some bibasilar atelectasis. Reading Location: [facility] [[email or web address] Assessment & Plan Assessment/Plan (1) Acute bronchitis due to respiratory syncytial virus: (2) Acute bronchospasm: (3) Respiratory insufficiency: (4) History of CVA with residual deficit: (5) Right hemiplegia: (6) Obesity (BMI 30-39.9): (7) History of atrial fibrillation: (8) Anticoagulated: PLAN: Plan 1. RSV infection complicated by clinical evidence of Acute Bronchitis causing Acute Bronchospasm - Admit to general medical floor with telemetric monitoring under contact and droplet precautions. Continue IV azithromycin and start IV methylprednisolone with scheduled and as needed nebulizers. Give vitamin D3, vitamin C and zinc to help boost immunity and hopefully speed recovery. Give acetaminophen as needed for pain or fever. 2. Acute Respiratory Insufficiency attributable to #1 - Wean supplemental oxygen as tolerated. 3. History of CVA; with severe expressive aphasia and chronic Right-sided weakness on clopidogrel with patient wheelchair-bound at baseline complicating #1 & #2 - Noted with PT/OT and case management consult and treat on rounds in a.m. with help appreciated in advance. 4. Obesity; with BMI of 30.2 this admission adding to the burden of disease outlined from #1 - #3 -Weight loss will be recommended. Check TSH. This complicates his case and may hamper recovery. 5. History of atrial fibrillation; on apixaban adding to the medical complexityof #1 - #4 - Maintain apixaban as previous. 6. Essential hypertension; on metoprolol tartrate twice daily - Resume current treatment. 7. Hyperlipidemia; on high-dose atorvastatin - Continue statin as before. 8. History of DM-2; currently not on treatment - Check hemoglobin A1c to confirm status. 9. History of Left internal carotid artery stenosis; s/p stent - Noted. 10. History of skin cancer - Noted. 11. History of cataract surgery - Noted. 12. Depression; on sertraline - Maintain current therapy. 13. BPH; on tamsulosin and doxazosin - Current regimen to be continued. 14. History of GERD with esophageal stenosis; s/p esophageal dilatation on pantoprazole twice daily- Resume PPI as previous. 15. OA; s/p Left total shoulder replacement - Give acetaminophen as needed as outlined in #1. 16. DVT prophylaxis - Patient is already on apixaban for #5 which will be continued. Total time: Approximately (but not less than) 75 minutes. Charges/Coding Visit Charges Inpatient E&M: 53911 Init Hosp L3 09/01/24 0613 Cosigner Signature (if applicable): CC: Dr. Eligio Contreras MD; Dr. An Cassidy DO~ Signed [facility]04-23-2025 Evaluation note* Diagnosis Onset Date Resolution Status Admit Date Acute bronchitis due to respiratory syncytial virus acute Apri l 2024 10:59pm Acute bronchospasm acute August 31, 2024 10:59pm Anticoagulated acute August 10:59pm History of atrial fibrillation acute August 31, 2024 10:59pm History of CVA with residual deficit acute August 31, 2024 10:59pm Hypoxia acute August 31 10:59pm Obesity (BMI 30-39.9) acute Apr 2024 10:59pm Respiratory insufficiency acute August 31, 2024 10:59pm Right hemiplegia acute August 312024 10:59pm RSV infection acute August 31, 2024 10:59pm [facility] Work Phone: [phone]) 443-950704-23-2025 Discharge summary Author Jayden Sanchez [facility] Note Date/Time August 31, 2024 10: 52pm [facility] Medical Records Department [address] [place] [address] Emergency Department Summary 08/31/24 MR#: [id number] Acct: [id number] Name: MIRI CAI Rep #:[id number] : 1945 78 From: Jayden Johnson PCP: Dr. Eligio Contreras MD Status:ADM ZACK Location: [place] [address] HPI History of Present Illness Chief Complaint: Shortness of Breath Informant: patient, family, EMS and SNF Narrative Narrative: 78-year-old male from [facility] presenting to the emergency room with cough shortness of breath. Patient reportedly had a chest x-ray that was negative that he was started on Zithromax today. No reported fever. Patient was reportedly 88% on room air there. He has not been hypoxic per nursing here. Oral temperature here is 99.8. Patient has had prior stroke and has expressive aphasia and chronic right-sided deficits. He is on Eliquis due to chronic A-fib. At baseline patient is wheelchair-bound. [facility] Medical History Esophageal stenosis History of left common carotid artery stent placement Hyperlipidemia Hypertension Atrial fibrillation History of skin cancer Stenosis of left internal carotid artery Stroke Cataract Afib Diabetes Home Medications ?Medication ?Instructions ?Recorded ?Last Taken ?Type apixaban 5 mg tablet (Eliquis) 5 mg PO BID Check with primary 02/19/22 Unknown History doctor atorvastatin 80 mg tablet 80 mg PO QHS cholesterol 04/02 Unknown History clopidogrel 75 mg tablet (Plavix) 75 mg PO DAILY Check with primary 02/19/22 Unknown History doctor metoprolol tartrate 50 mg tablet 50 mg PO BID BP 02/19 Unknown History tamsulosin 0.4 mg capsule (Flomax) 0.4 mg PO DAILY ret ention 02/19/22 02/19/22 08:30 History vit A 7,160 unit-vit C 113 mg-vit 1 tab PO DAILY Check with primary 02/19/22 Unknown History E 100 pzef-xklo-hzvhlr tablet doctor doxazosin 1 mg tablet 1 mg PO QHS urine 04/12/22 U nknown History menthol 0.44 %-zinc oxide 20.6 % 1 applic topical BID@ 0600,2200 04/12/22 Unknown History topical ointment (Calmoseptine) cream pantoprazole 40 mg tablet,delayed 40 mg PO BID heartbu rn 04/12/22 Unknown History release sennosides 8.6 mg-docusate sodium 1 tab PO QHS constip ation 04/12/22 Unknown History 50 mg tablet (Stool Softener-Stimulant Laxative) Arthritis Pain Compound 0 click topical BID ##0 04/12 07/03 Unknown Rx acetaminophen 500 mg tablet 1,000 mg (2 x 500 mg) PO Q 8 #0 tabs 05/02/22 Unknown Rx bisacodyl 10 mg rectal suppository 10 mg MI .PRN X 1 P RN Constipation 05/02/22 U nknown Rx #0 ea food supplemt, lactose-reduced 120 ml PO 4X/DAY #0 mL 05/02/22 Unknown Rx 0.08 gram-1.5 kcal/mL oral liquid (Ensure Plus High Protein) magnesium hydroxide 400 mg/5 mL 30 ml PO .PRN X 1 PRN Constipation 05/02/22 Unknown Rx oral suspension #0 mL oxymetazoline 0.05 % nasal spray 2 spray intranasal Q1 2H PRN 05/02/22 Unknown Rx (Afrin (oxymetazoline)) epistaxis 3 days #15 mL sodium chloride 0.65 % nasal spray 1 spray NASAL ACHS #0 mL 05/02/22 Unknown Rx aerosol (Deep Sea Nasal) azithromycin 250 mg tablet 250 mg PO DAILY 08/31/24 Un known History (Zithromax) loperamide 2 mg capsule 2 mg PO Q6H PRN loose stool 08/31/24 Unknown History (Anti-Diarrheal (loperamide)) nystatin 100,000 unit/gram topical topical 08/31/24 Un known History powder sertraline 25 mg tablet 25 mg PO DAILY 08/31/24 Unkn own History tizanidine 4 mg tablet 4 mg PO QHS 08/31/24 Unknown History Allergy/AdvReac Type Severity Reaction Status Date / Time No Known Allergies Allergy Verified 08/31/24 20:13 Family History no significant family his Surgical History Status post dilation of esophageal narrowing History of left shoulder replacement History of cataract surgery History of left shoulder replacement Social History household members: none Smoking Status: Current some day smoker tobacco type: pipe and cigars alcohol intake: current alcohol intake frequency: holidays/special occasions only substance use type: does not use ROS ROS ED Review of Systems ROS Unobtainable: other Details: Expressive aphasia Constitutional Constitutional ED: Denies fever(s) Respiratory/Chest Respiratory/Chest: Reports cough and dyspnea Gastrointestinal Gastrointestinal: Denies abdominal pain, diarrhea, nausea or vomiting EXAM Physical Exam Const Vital Signs: 08/31/24 20:14 08/31/24 20:20 08/31/24 20:22 Temperature 99.8 F H 99.8 F H Temperature Source Oral Oral Pulse Rate 78 82 Respiratory Rate 26 H 24 H Respiratory Effort Short of Breath Respiratory Pattern Tachypnea Blood Pressure 146/92 H 146/92 H Blood Pressure Mean 110 110 Pulse Ox 94 94 Oxygen Delivery Method Room Air Room Air Room Air 08/31/24 21:07 08/31/24 21:20 08/31/24 22:00 Temperature 98.2 F 98 F Temperature Source Oral Oral Pulse Rate 71 80 84 Respiratory Rate 18 24 H 24 H Respiratory Effort Respiratory Pattern Blood Pressure 126/94 H 117/65 Blood Pressure Mean 104 82 Pulse Ox 93 94 Oxygen Delivery Method Room Air Room Air 08/31/24 22:16 Temperature 98 F Temperature Source Pulse Rate 77 Respiratory Rate 22 H Respiratory Effort Respiratory Pattern Blood Pressure 110/64 Blood Pressure Mean 79 Pulse Ox 94 Oxygen Delivery Method Positive well nourished and well developed General Appearance ED: well developed HEENT Reports normocephalic, head/scalp atraumatic and moist mucous membranes Eyes PERRL and EOMs intact bilaterally Neck no lymphadenopathy, supple and no JVD Resp normal respiratory effort Resp Narrative: Moist cough Auscultation: rhonchi and wheezes expiratory wheezes Cardio regular rate, regular rhythm and no murmurs GI normal to inspection, nondistended, normoactive bowel sounds and non-tender Palpation: soft Back/Spine no CVA tenderness and normal ROM Extremity normal to inspection General Extremety ED: Negative for edema General Extremity: Negative for edema Neuro Neuro Narrative: Patient has a moderate expressive aphasia. Chronic right-sided weakness Sandro Coma Scale: document GCS findings Spontaneous Obeys Commands Oriented 15 Sensorium / Orientation: alert Psych mental status grossly normal Mood & Affect: Negative for depressed or tearful Skin no rashes or lesions noted and no wounds MDM MDM MDM Narrative Medical decision making narrative: Differential diagnosis includes but not limited to viral syndrome pneumonia pleural effusion bronchitis bronchospasm dehydration Patient is RSV positive. My independent interpretation of the chest x-ray is noacute process. White count 6.3 hemoglobin 13.1 glucose 124 normal electrolytes. BUN 14 creatinine 0.95 Patient received a DuoNeb as well as IV fluids. Patient is not currently tachycardic or hypoxic. He continues to have a moist rhonchorous cough. Familyis concerned with his breathing and his coughing and would be more comfortable with an observational stay. They understand that there is no specific treatmentfor RSV and that treatment is supportive. History & Record Review Discussion w/independent historian: Patient and Family Additional record(s) reviewed:: Prior inpatient record, Prior ED visit and Priorlabs Lab Data Attestation: I reviewed the patient's lab results. Labs: Laboratory Results - last 24 hr 08/31/24 20:27 WBC 6.3 RBC 4.34 L Hgb 13.1 Hct 38.6 L MCV 88.9 MCH 30.2 MCHC 33.9 RDW Std Deviation 47.5 H RDW Coeff of Juan 14.6 Plt Count 210 MPV 10.3 Immature Gran % (Auto) 0.200 Neut % (Auto) 69.2 Lymph % (Auto) 15.7 L Durham % (Auto) 11.1 H Eos % (Auto) 3.3 Baso % (Auto) 0.5 Absolute Neuts (auto) 4.4 Absolute Lymphs (auto) 0.99 Nucleated RBC % 0 Sodium 135 Potassium 4.1 Chloride 101 Carbon Dioxide 23.3 Anion Gap 10 BUN 14 Creatinine 0.95 Estim Creat Clear Calc 71.96 Est GFR (MDRD) Non-Af 81 BUN/Creatinine Ratio 14.9 Glucose 124 H Calcium 9.3 Radiography Diagnostic Testing: Clinical Impression(s) from Imaging Studies Chest X-Ray 08/31/24 20:50 IMPRESSION: Poor inspiration with some bibasilar atelectasis. Reading Location: [facility] [[email or web address] Management Discussion w/another healthcare provider: Hospitalist (Dr Cassidy) Discharge Plan Dx/Rx/DC Orders Clinical Impression: Acute bronchitis due to respiratory syncytial virus, Acute bronchospasm, Anticoagulated Disposition Disposition: [facility] What to do if you have Problems For any increased pain, shortness of breath, bleeding, nausea or vomiting, chestpain, or any unexpected problems, contact your Primary Care Provider. Call [facility] ([phone]) or report to the closest Emergency Room. Call 911 if necessary. 08/31/242251 <Electronically signed by Jayden Sanchez DO> Cosigner Signature (if applicable): CC: Dr. Eligio Contreras MD ~ Signed [facility] Work Phone: 1(473) 950-484604-22-2025 Discharge summary [facility] Medical Records Department [address] [place] [id number] Emergency Department Summary 08/31/24 MR#: [id number] Acct: [id number] Name: MIRI CAI Rep #:[id number] : 1945 78 From: Jayden Johnson PCP: Dr. Eligio Contreras MD Status:ADM ZACK Location: [place] [address] HPI History of Present Illness Chief Complaint: Shortness of Breath Informant: patient, family, EMS and SNF Narrative Narrative: 78-year-old male from [facility] presenting to the emergency room with cough shortness of breath. Patient reportedly had a chest x-ray that was negative that he was started on Zithromax today. No reported fever. Patient was reportedly 88% on room air there. He has not been hypoxic per nursing here. Oral temperature here is 99.8. Patient has had prior stroke and has expressive aphasia and chronic right-sided deficits. He is on Eliquis due to chronic A-fib. At baseline patient is wheelchair-bound. [facility] Medical History Esophageal stenosis History of left common carotid artery stent placement Hyperlipidemia Hypertension Atrial fibrillation History of skin cancer Stenosis of left internal carotid artery Stroke Cataract Afib Diabetes Home Medications ?Medication ?Instructions ?Recorded ?Last Taken ?Type apixaban 5 mg tablet (Eliquis) 5 mg PO BID Check with primary 02/19/22 Unknown History doctor atorvastatin 80 mg tablet 80 mg PO QHS cholesterol 04/02 Unknown History clopidogrel 75 mg tablet (Plavix) 75 mg PO DAILY Check with primary 02/19/22 Unknown History doctor metoprolol tartrate 50 mg tablet 50 mg PO BID BP 02/19 Unknown History tamsulosin 0.4 mg capsule (Flomax) 0.4 mg PO DAILY ret ention 02/19/22 02/19/22 08:30 History vit A 7,160 unit-vit C 113 mg-vit 1 tab PO DAILY Check with primary 02/19/22 Unknown History E 100 knjm-zgfy-xglucj tablet doctor doxazosin 1 mg tablet 1 mg PO QHS urine 04/12/22 U nknown History menthol 0.44 %-zinc oxide 20.6 % 1 applic topical BID@ 0600,2200 04/12/22 Unknown History topical ointment (Calmoseptine) cream pantoprazole 40 mg tablet,delayed 40 mg PO BID heartbu rn 04/12/22 Unknown History release sennosides 8.6 mg-docusate sodium 1 tab PO QHS constip ation 04/12/22 Unknown History 50 mg tablet (Stool Softener-Stimulant Laxative) Arthritis Pain Compound 0 click topical BID ##0 04/12 07/03 Unknown Rx acetaminophen 500 mg tablet 1,000 mg (2 x 500 mg) PO Q 8 #0 tabs 05/02/22 Unknown Rx bisacodyl 10 mg rectal suppository 10 mg MI .PRN X 1 P RN Constipation 05/02/22 U nknown Rx #0 ea food supplemt, lactose-reduced 120 ml PO 4X/DAY #0 mL 05/02/22 Unknown Rx 0.08 gram-1.5 kcal/mL oral liquid (Ensure Plus High Protein) magnesium hydroxide 400 mg/5 mL 30 ml PO .PRN X 1 PRN Constipation 05/02/22 Unknown Rx oral suspension #0 mL oxymetazoline 0.05 % nasal spray 2 spray intranasal Q1 2H PRN 05/02/22 Unknown Rx (Afrin (oxymetazoline)) epistaxis 3 days #15 mL sodium chloride 0.65 % nasal spray 1 spray NASAL ACHS #0 mL 05/02/22 Unknown Rx aerosol (Deep Sea Nasal) azithromycin 250 mg tablet 250 mg PO DAILY 08/31/24 Un known History (Zithromax) loperamide 2 mg capsule 2 mg PO Q6H PRN loose stool 08/31/24 Unknown History (Anti-Diarrheal (loperamide)) nystatin 100,000 unit/gram topical topical 08/31/24 Un known History powder sertraline 25 mg tablet 25 mg PO DAILY 08/31/24 Unkn own History tizanidine 4 mg tablet 4 mg PO QHS 08/31/24 Unknown History Allergy/AdvReac Type Severity Reaction Status Date / Time No Known Allergies Allergy Verified 08/31/24 20:13 Family History no significant family his Surgical History Status post dilation of esophageal narrowing History of left shoulder replacement History of cataract surgery History of left shoulder replacement Social History household members: none Smoking Status: Current some day smoker tobacco type: pipe and cigars alcohol intake: current alcohol intake frequency: holidays/special occasions only substance use type: does not use ROS ROS ED Review of Systems ROS Unobtainable: other Details: Expressive aphasia Constitutional Constitutional ED: Denies fever(s) Respiratory/Chest Respiratory/Chest: Reports cough and dyspnea Gastrointestinal Gastrointestinal: Denies abdominal pain, diarrhea, nausea or vomiting EXAM Physical Exam Const Vital Signs: 08/31/24 20:14 08/31/24 20:20 08/31/24 20:22 Temperature 99.8 F H 99.8 F H Temperature Source Oral Oral Pulse Rate 78 82 Respiratory Rate 26 H 24 H Respiratory Effort Short of Breath Respiratory Pattern Tachypnea Blood Pressure 146/92 H 146/92 H Blood Pressure Mean 110 110 Pulse Ox 94 94 Oxygen Delivery Method Room Air Room Air Room Air 08/31/24 21:07 08/31/24 21:20 08/31/24 22:00 Temperature 98.2 F 98 F Temperature Source Oral Oral Pulse Rate 71 80 84 Respiratory Rate 18 24 H 24 H Respiratory Effort Respiratory Pattern Blood Pressure 126/94 H 117/65 Blood Pressure Mean 104 82 Pulse Ox 93 94 Oxygen Delivery Method Room Air Room Air 08/31/24 22:16 Temperature 98 F Temperature Source Pulse Rate 77 Respiratory Rate 22 H Respiratory Effort Respiratory Pattern Blood Pressure 110/64 Blood Pressure Mean 79 Pulse Ox 94 Oxygen Delivery Method Positive well nourished and well developed General Appearance ED: well developed HEENT Reports normocephalic, head/scalp atraumatic and moist mucous membranes Eyes PERRL and EOMs intact bilaterally Neck no lymphadenopathy, supple and no JVD Resp normal respiratory effort Resp Narrative: Moist cough Auscultation: rhonchi and wheezes expiratory wheezes Cardio regular rate, regular rhythm and no murmurs GI normal to inspection, nondistended, normoactive bowel sounds and non-tender Palpation: soft Back/Spine no CVA tenderness and normal ROM Extremity normal to inspection General Extremety ED: Negative for edema General Extremity: Negative for edema Neuro Neuro Narrative: Patient has a moderate expressive aphasia. Chronic right-sided weakness Sandro Coma Scale: document GCS findings Spontaneous Obeys Commands Oriented 15 Sensorium / Orientation: alert Psych mental status grossly normal Mood & Affect: Negative for depressed or tearful Skin no rashes or lesions noted and no wounds MDM MDM MDM Narrative Medical decision making narrative: Differential diagnosis includes but not limited to viral syndrome pneumonia pleural effusion bronchitis bronchospasm dehydration Patient is RSV positive. My independent interpretation of the chest x-ray is noacute process. Whitecount 6.3 hemoglobin 13.1 glucose 124 normal electrolytes. BUN 14 creatinine 0.95 Patient received a DuoNeb as well as IV fluids. Patient is not currently tachycardic or hypoxic. Hecontinues to have a moist rhonchorous cough. Familyis concerned with his breathing and his coughingand would be more comfortable with an observational stay. They understand that there is no specifictreatmentfor RSV and that treatment is supportive. History & Record Review Discussion w/independent historian: Patient and Family Additional record(s) reviewed:: Prior inpatient record, Prior ED visit and Priorlabs Lab Data Attestation: I reviewed the patient's lab results. Labs: Laboratory Results - last 24 hr 08/31/24 20:27 WBC 6.3 RBC 4.34 L Hgb 13.1 Hct 38.6 L MCV 88.9 MCH 30.2 MCHC 33.9 RDW Std Deviation 47.5 H RDW Coeff of Juan 14.6 Plt Count 210 MPV 10.3 Immature Gran % (Auto) 0.200 Neut % (Auto) 69.2 Lymph % (Auto) 15.7 L Durham % (Auto) 11.1 H Eos % (Auto) 3.3 Baso % (Auto) 0.5 Absolute Neuts (auto) 4.4 Absolute Lymphs (auto) 0.99 Nucleated RBC % 0 Sodium 135 Potassium 4.1 Chloride 101 Carbon Dioxide 23.3 Anion Gap 10 BUN 14 Creatinine 0.95 Estim Creat Clear Calc 71.96 Est GFR (MDRD) Non-Af 81 BUN/Creatinine Ratio 14.9 Glucose 124 H Calcium 9.3 Radiography Diagnostic Testing: Clinical Impression(s) from Imaging Studies Chest X-Ray 08/31/24 20:50 IMPRESSION: Poor inspiration with some bibasilar atelectasis. Reading Location: [id number] Management Discussion w/another healthcare provider: Hospitalist (Dr Cassidy) Discharge Plan Dx/Rx/DC Orders Clinical Impression: Acute bronchitis due to respiratory syncytial virus, Acute bronchospasm, Anticoagulated Disposition Disposition: Acute Care Hospital [facility] What to do if you have Problems For any increased pain, shortness of breath, bleeding, nausea or vomiting, chestpain, or any unexpected problems, contact your Primary Care Provider. Call [facility] ([phone]) or report tothe closest Emergency Room. Call 911 if necessary. 08/31/242251 Cosigner Signature (if applicable): CC: Dr. Eligio Contreras MD ~ Signed [facility]04-22-2025 Radiology Diagnostic study note [facility] Imaging Services [address], [place] [address] Chest PA and Lateral MR#: [id number] Acct: [id number] Name: MIRI CAI Rep #: [id number] : 1945 M 78 From: Bakari Hua MD PCP: Dr. Eligio Contreras MD Status: REG ER Study:Chest PA and Lateral Date of Exam: 08/31/24 Exam# [id number] Ordering Dr: Nara Sanchez DO PROCEDURE: CHEST PA AND LATERAL 08/31/2024 REASON FOR EXAM: COUGH TECHNIQUE: Frontal and lateral views of the chest. FINDINGS: Hardware: None Heart: Heart size is moderately enlarged. Mediastinum: The mediastinal contour is unremarkable. Lungs: Poor inspiration with some bibasilar atelectasis. Bones: The bones are unremarkable. RAD/Chest PA and Lateral IMPRESSION: Poor inspiration with some bibasilar atelectasis. Reading Location: [id number] CC: Dr. Eligio Contreras MD; Dr. Jayden Sanchez DO ~ Operations Recruiter: Signed [facility]01-11-2023 Miscellaneous Notes* Telephone Encounter - Braxton Rehman RN - 05/22/2022 1:01 PM EST MODIFIED TALHA SCORE POST-DISCHARGE Telephone Visit Patient Name: Miri Cai Today's date: May 22, 2022 Date of discharge: February 19, 2022 Person giving information: Piero Villeda. Relationship to patient: sister. Contact information: [phone] Contact attempt: #1 Patient discharge location: Acute Rehab Patient current location: SNF Presentation to ED or readmission after discharge: No Modified Reno Score: 90 days post discharge: 5 = Severe disability. Bedridden, incontinent. Requires constant care & attention. Mortality: No Sister states that Miri cannot use his right side at all, and has very limited verbal capabilities. He has continued therapy but needs 24-hour care; he is a two-person assist for everything. Does attempt to feed himself at times. Signature: Braxton Rehman RN May 22, 2022 1:01 PM [facility] Miscellaneous Notes* Telephone Encounter - Sadie Bowles - 05/16/2022 3:46 PM EST Sent first no show letter. Sadie Bowles * Telephone Encounter - Sadie Baconsaul - 05/16/2022 11:01 AM EST Called patient to advise of missed appointment. No answer and answering machine beeps and states its full. Unable to leave message. Sadie Bowles documented in this encounterC[facility]11-15-2022 NoteHNO ID: [id number] Author: Belkis Nam PA-C Service: ? Author Type: Physician Wire Coating Machine Operator Type: Progress Notes Filed: 03/26/2022 2:50 PM Note Text: 2 WEEK POST OP REVERSE TOTAL SHOULDER ARTHROPLASTY HPI: The patient is here for a post-operative visit following a left reverse shoulder total shoulder arthroplasty with open biceps tenodesis of the long head of the biceps on 02/06/22. The patient is approximately 7 weeks out from surgery. While in the hospital the patient suffered from a stroke. He was taken up to [facility]. He was in a acute care facility for 11 days after surgery and is now residing in a nursing facility. The right side of his body was affected by his stroke. He is able to move the left side of his body Regarding his left shoulder, he notes mild pain and limitation. He has not begun physical therapy for his operative shoulder due to the treatment for his stroke. Their pain is currently controlled with the P.O. pain medications that were prescribed after surgery. The patient's block wore off shortly after surgery and the patient denies any paresthesias in the operative arm. The patient denies wound issues, numbness/tingling, chest pain, or SOB. PAIN EVALUATION 03/26/2022 1011 Pain Location: Shoulder-Left Description: Aching Frequency: Intermittent ALLERGIES No Known Allergies Current Outpatient Medications Medication Sig Dispense Refill acetaminophen (TYLENOL) 325 mg tablet 2 tablets by ORAL/FEEDING TUBE route every 4 hours as needed for pain. atorvastatin (LIPITOR) 80 mg tablet 1 tablet by ORAL/FEEDING TUBE route daily at bedtime. tamsulosin (FLOMAX) 0.4 mg Take 1 capsule by mouth once daily. metoprolol tartrate, short acting, (LOPRESSOR) 50 mg tablet 1 tablet by ORAL/FEEDING TUBE route every 12 hours. clopidogrel (PLAVIX) 75 mg tablet 1 tablet by ORAL/FEEDING TUBE route once daily. potassium chloride (KLOR-CON) 20 mEq packet Take 40 mEq by mouth once daily. vit A/C/E ac/ZnOx/cupric oxide (EYE VITAMIN AND MINERALS ORAL) Take 1 capsule by mouth once daily. Vision Essential ELIQUIS 5 mg tab(s) Take 5 mg by mouth twice daily. No current facility-administered medications for this visit. PAST MEDICAL HISTORY Diagnosis Date Arrhythmia Diabetes mellitus (HCC) Essential hypertension PAST SURGICAL HISTORY Procedure Laterality Date NON-MELANOMA SKIN CANCER TUMOR BOARD [facility] 10/2021 REMV CATARACT EXTRACAP,INSERT LENS Bilateral 06/2021 REPAIR INCISIONAL HERNIA,REDUCIBLE 2008 SHOULDER SURGERY HX Left BP 99/64 Pulse 96 Ht 5' 10.512 (1.79m) Wt 186 lb (84.4kg) BMI 26.30 kg/(m2). Review of Systems Ortho Exam Alert and Oriented x 3. NAD LEFT SHOULDER EXAM: Examination of the left shoulder demonstrates a healed incision. There is mild swelling and ecchymosis about the arm which is appropriate given the recent surgery. There is no erythema, drainage, streaking or concern for infection. Shoulder stable on exam. PROM 90/30/30. Active range of motion and strength testing was not performed. Normal ROM of elbow, wrist, and hand. NVI. RADIOLOGIC EXAM: Postoperative xrays of the patient's left shoulder were taken and personally reviewed with the patient in great detail today. These xrays demonstrate a reverse total shoulder arthroplasty in excellent position. The glenosphere is securely seated with no evidence of radiographic loosening. There are no fractures noted along the glenoid vault. The humeral component is well seated and in good position. There are no signs of a pending acromial stress fracture. There is no evidence of polyethylene failure. Encounter Diagnosis ICD-10-CM 1. 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 XR SHOULDER LIMITED 2V AP/TRUE AP LEFT CONSULT TO PT/OT CANCELED: XR WRIST 2V AP/LAT LEFT 2. Status post reverse arthroplasty of left shoulder Z96.612 CONSULT TO PT/OT PLAN: I spoke with the patient regarding his surgery. Today's xray images were reviewed with the patient and all relevant anatomy and/or procedures were described and explained to the patient in detail. Xrays show an reverse left total shoulder arthroplasty in excellent position with no signs of hardware loosening or infection. The patient may discontinue the sling and use it only for comfort, as needed. The patient will continue to work on daily ROM exercises to the elbow, wrist, hand and fingers as demonstrated. With regard to the shoulder, passive ROM in the supine position was explained and demonstrated for the patient today. The patient will begin formal physical therapy promptly and a PT prescription was given outlining the patients limitations, restrictions and post-operative ROM goals for their next follow-up. They should avoid heavy lifting, pushing or pulling for the next 4 weeks and I reviewed potential for acromial stress fracture. The patient will continue with P.O. pain medication as needed, (more content not included)...[facility]11-15-[facility] History of Present illness Narrative* Belkis Nam PA-C - 03/26/2022 2:32 PM EST 2 WEEK POST OP REVERSE TOTAL SHOULDER ARTHROPLASTY HPI: The patient is here for a post-operative visit following a left reverse shoulder total shoulder arthroplasty with open biceps tenodesis of the long head of the biceps on 02/06/22. The patient is approximately 7 weeks out from surgery. While in the hospital the patient suffered from a stroke. He was taken up to [facility]. He was in a acute care facility for 11 days after surgery and is now residing in a nursing facility. The right side of his body was affected by his stroke. He is able to move the left side of his body Regarding his left shoulder, he notes mild pain and limitation. He has not begun physical therapy for his operative shoulder due to the treatment for his stroke. Their pain is currently controlled with the P.O. pain medications that were prescribed after surgery. The patient's block wore off shortly after surgery and the patient denies any paresthesias in the operative arm. The patient denies wound issues, numbness/tingling, chest pain, or SOB. PAIN EVALUATION 03/26/2022 1011 Pain Location: Shoulder-Left Description: Aching Frequency: Intermittent ALLERGIES No Known Allergies Current Outpatient Medications Medication Sig Dispense Refill acetaminophen (TYLENOL) 325 mg tablet 2 tablets by ORAL/FEEDING TUBE route every 4 hours as needed for pain. atorvastatin (LIPITOR) 80 mg tablet 1 tablet by ORAL/FEEDING TUBE route daily at bedtime. tamsulosin (FLOMAX) 0.4 mg Take 1 capsule by mouth once daily. metoprolol tartrate, short acting, (LOPRESSOR) 50 mg tablet 1 tablet by ORAL/FEEDING TUBE route every 12 hours. clopidogrel (PLAVIX) 75 mg tablet 1 tablet by ORAL/FEEDING TUBE route once daily. potassium chloride (KLOR-CON) 20 mEq packet Take 40 mEq by mouth once daily. vit A/C/E ac/ZnOx/cupric oxide (EYE VITAMIN AND MINERALS ORAL) Take 1 capsule by mouth once daily. Vision Essential ELIQUIS 5 mg tab(s) Take 5 mg by mouth twice daily. No current facility-administered medications for this visit. PAST MEDICAL HISTORY Diagnosis Date Arrhythmia Diabetes mellitus (HCC) Essential hypertension PAST SURGICAL HISTORY Procedure Laterality Date NON-MELANOMA SKIN CANCER TUMOR BOARD [facility] 10/2021 REMV CATARACT EXTRACAP,INSERT LENS Bilateral 06/2021 REPAIR INCISIONAL HERNIA,REDUCIBLE 2009 SHOULDER SURGERY HX Left BP 99/64 Pulse 96 Ht 5' 10.512 (1.79m) Wt 186 lb (84.4kg) BMI 26.30 kg/(m^2). Review of Systems Ortho Exam Alert and Oriented x 3. NAD LEFT SHOULDER EXAM: Examination of the left shoulder demonstrates a healed incision. There is mild swelling and ecchymosis about the arm which is appropriate given the recent surgery. There is no erythema, drainage, streaking or concern for infection. Shoulder stable on exam. PROM 90/30/30. Active range of motion and strength testing was not performed. Normal ROM of elbow, wrist, and hand. NVI. RADIOLOGIC EXAM: Postoperative xrays of the patient's left shoulder were taken and personally reviewed with the patient in great detail today. These xrays demonstrate a reverse total shoulder arthroplasty in excellent position. The glenosphere is securely seated with no evidence of radiographic loosening. There areno fractures noted along the glenoid vault. The humeral component is well seated and in good position. There are no signs of a pending acromial stress fracture. There is no evidence of polyethylene failure. Encounter Diagnosis ICD-10-CM 1. 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 XR SHOULDER LIMITED 2V AP/TRUE AP LEFT CONSULT TO PT/OT CANCELED: XR WRIST 2V AP/LAT LEFT 2. Status post reverse arthroplasty of left shoulder Z96.612 CONSULT TO PT/OT PLAN: I spoke with the patient regarding his surgery. Today's xray images were reviewed with the patient and all relevant anatomy and/or procedures were described and explained to the patient in detail. Xrays show an reverse left total shoulder arthroplasty in excellent position with no signs of hardware loosening or infection. The patient may discontinue the sling and use it only for comfort, as needed. The patient will continue to work on daily ROM exercises to the elbow, wrist, hand and fingers as demonstrated. With regard to the shoulder, passive ROM in the supine position was explained and demonstrated for the patient today. The patient will begin formal physical therapy promptly and a PT prescription was given outlining the patients limitations, restrictions and post-operative ROM goals for their next follow-up.They should avoid heavy lifting, pushing or pulling for the next 4 weeks and I reviewed potential for acromial stress fracture. The patient will continue with P.O. pain medication as needed, with a goal of slowly weaning off the medication over the next few weeks. They will continue taking his anticoagulation medications as instructed. I will see the patient back for follow-up in 4-6 weeks for re-evaluation with further post-operative recommendations at that time. All questions were answered for the patient and they are pleased with their surgery so far and they know to contact our office should their symptoms worsen or if they have concerns with our current treatment plan. Patient expressed understanding. Belkis Nam PA-C I reviewed and discussed patient's visit and documentation with Dr. Carson Bullock III, D.O. Note: This dictation was created with the assistance of voice recognition software. Phonetic and/orminor grammatical errors may exist. documented in this encounterC[facility]10-14-2022 Miscellaneous Notes* Telephone Encounter - Carson Bullock III, DO - 02/22/2022 4:32 PM EDT Spoke directly with Deloris today and answered all her questions and confirmed my protocol. Thanks. Carson Bullock III, DO * Telephone Encounter - Lázaro Fox MA - 02/22/2022 9:42 AM EDT Faxed successfully. Lázaro Fox MA * Telephone Encounter - Lázaro Fox MA - 02/22/2022 9:27 AM EDT Will get this protocol faxed today. Lázaro Fox MA * Telephone Encounter - Sadie Bowles - 02/22/2022 9:22 AM EDT [facility] called still has not received fax from our office on protocol. Sadie Bowles * Telephone Encounter - Kerri Abraham - 02/21/2022 3:28 PM EDT Patient had left shoulder RTSA two weeks post op need to fax post operative therapy order to where he is staying. Are you able to start order. Thanks. Kerri * Telephone Encounter - Sadie Bowles - 02/21/2022 3:26 PM EDT [facility] called checking on this. I advised of below, She is requesting protocol be faxed to [phone] If there is any other concerns Deloris can be reached by phone at [phone] Sadie Bowles * Telephone Encounter - Belkis Nam PA-C - 02/21/2022 1:58 PM EDT Left R TSA. 02/06/22 Dressing and sutures (if any) can come out 2 weeks after surgery. He can start PT/OT now. Please fax over [facility] Protocol sheet. He is able to shower. No submerging incision. Sling is for comfort only at this point. Belkis Nam PA-C * Telephone Encounter - Kerri Abraham - 02/20/2022 12:47 PM EDT HE IS AT [facility] FOLLOWING A STROKE AND IS ADMITTED TO REHAB. NEED TO KNOW WHEN SURGICAL DRESSING CAN BE REMOVED, FANY/SUTURE REMOVAL AND WHAT THERAPY IS ALLOWED. ALSO NEED TO KNOW IF SLING IS WORN ALL OF THE TIME. KERRI KAISER documented in this encounterC[facility]10-11-2022 NoteHNO ID: [id number] Author: Hubert Salgado RPh Service: Pharmacy Author Type: Pharmacist Type: Plan of Care Filed: 02/19/2022 11:21 AM Note Text: DISCHARGE MEDICATION REVIEW BY PHARMACY Patient Name: Miri Cai Account #: Data Unavailable Admission Date: 02/07/2022 Date of Contact: February 19, 2022 Time of Contact: 11:20 AM Medication list was reviewed by a Pharmacist for drug interactions or drug related problems:Yes Below is a summary of pharmacist recommendations discussed with LIP: The following medications were discussed with LIP for further review: see below - Confirmed and agreed, due to AF, changed metoprolol ER to tartrate - Pt going to Rehab Hubert Salgado sol February 19, 2022 11:20 AM Pager: Ext # [phone] 02/19/2022 11:20 AM Medication List START taking these medications acetaminophen 325 mg tablet Commonly known as: TYLENOL 2 tablets by ORAL/FEEDING TUBE route every 4 hours as needed for pain. atorvastatin 80 mg tablet Commonly known as: LIPITOR 1 tablet by ORAL/FEEDING TUBE route daily at bedtime. clopidogrel 75 mg tablet Commonly known as: PLAVIX 1 tablet by ORAL/FEEDING TUBE route once daily. metoprolol tartrate (short acting) 50 mg tablet Commonly known as: LOPRESSOR 1 tablet by ORAL/FEEDING TUBE route every 12 hours. potassium chloride 20 mEq packet Commonly known as: KLOR-CON Take 40 mEq by mouth once daily. tamsulosin 0.4 mg Commonly known as: FLOMAX Take 1 capsule by mouth once daily. CONTINUE taking these medications ELIQUIS 5 mg tab(s) Generic drug: apixaban EYE VITAMIN AND MINERALS ORAL STOP taking these medications ADULT MULTI PLUS OMEGA-3 ORAL Ascorbic Acid 1,000 mg Tber cholecalciferol 1,000 unit Tab tablet Commonly known as: VITAMIN D3 Cholesterol Control,High AND Low Soln CIRCULATION ORAL HEALTHY HEART FORMULA ORAL JOINT HEALTH ORAL MAGNESIUM COMPLEX ORAL metoprolol succinate ER 50 mg 24 hr tablet Commonly known as: TOPROL XL MULTIVITAMIN ORAL PROBIOTIC (S.BOULARDII) 250 mg capsule Generic drug: Saccharomyces boulardii PROSTATE HEALTH ORAL [facility]ROID [facility] NoteHNO ID: [id number] Author: Susana Frey RN Service: Care Management Author Type: Registered Nurse Type: Care Mgt Progress Note Filed: 02/19/2022 9:11 AM Note Text: CARE MANAGEMENT PROGRESS NOTE SERVICE DATE: 02/19/2022 SERVICE TIME: 9:11 AM LOS: 12 days IMM Follow Up Copy Given: Yes Copy given to:: Patient Method: By Phone (spoke with marti Sorensen via phone and updated, all agreeable to dc plan.) SIGNATURE: Susana Frey RN PATIENT NAME: Miri Cai DATE: February 19, 2022 TIME: 9:11 AM PAGER/CONTACT #: [phone]-2022 NoteHNO ID: [id number] Author: Faisal Crews MD Service: Hospital Medicine Author Type: Physician Type: Progress Notes Filed: 02/19/2022 8:40 AM Note Text: DEPARTMENT OF HOSPITAL MEDICINE PROGRESS NOTE SERVICE DATE: 02/19/2022 SERVICE TIME: 7:12 AM Hospital Medicine/Primary Attending: Faisal Crews MD NIGHT AND WEEKEND COVERAGE: [place] COVERAGE: After 7pm, please call cross cover pager #[phone] Subjective INTERVAL HPI: Patient seen and examined. Epic reviewed. KYRIE. MEDICATIONS: Reviewed Objective PHYSICAL EXAM: BP 135/77 Pulse 99 Temp (Src) 97.3 (Oral) Resp 18 Ht 5' 10.5[height estimate[ (1.79m) Wt 186 lb 8.2 oz (84.6kg) SpO2 96% BMI 26.37 kg/(m2). O2 Therapy: Room Air General - NAD, Calm CV - irregular RESP - CTA B/L ABD - soft, NT, ND +BS EXT - no edema NEURO - right arm flaccid paralysis, right leg with slight movement unable to bend knee Lines, Drains, and Airways Line Duration Peripheral 02/12/22 0400 Short Right Forearm 20 Gauge 7 days Peripheral 02/12/22 1415 Right Hand 20 Gauge 6 days Drain Duration External Collection Device 02/07/22 0315 12 days Orthopaedic Device Duration Immobilizer 02/11/22 Immobilizer (Specify in Comments) Right Humerus 8 days DATA: Diagnostic tests reviewed for today's visit: Most recent labs and imaging results. Assessment/Plan Acute left MCA stroke, cardioembolic: tPA left MCA thrombectomy and left ICA stenting complicated by reocclusion: continue Eliquis and Plavix. Aspirin stopped. Continue statin. Planning for AR Atrial fibrillation with RVR: increased metoprolol to 50 twice daily 02/18. Cont eliquis. Monitor on telemetry Diabetes mellitus: SSI Hypertension: metoprolol Hyperlipidemia: statin Recent left total shoulder replacement: Nonweightbearing while admitted, advance in outpatient setting. Follow-up with Ortho as outpatient Medication and Non-Pharmacologic VTE Prophylaxis/Anticoagulants Anticoagulant AND Antiplatelet Medications (From admission, onward) Start Dose Route Frequency Last Action Ordered Stop 02/18/22 2100 apixaban 5 mg tab(s) (ELIQUIS) (apixaban tab(s) (ELIQUIS)) 5 mg ORAL 2 TIMES DAILY Given, 02/19 202002/18/22 1231 -- 02/08/22 0900 clopidogrel 75 mg tab(s) (PLAVIX) 75 mg PO/FT DAILY Given, 02/18 0804 02/08/22 0445 -- 02/08/22 0600 activity - mobilize patient (ar,va) 02/07/22 033 vte pharmacologic prophylaxis contraindicated (ar,oh) 02/07/22 033 pneumatic compression stockings (ar,oh) 02/07/22 0330 graduated compression stockings (ar,oh) VTE Prophylaxis: VTE prophylaxis appropriate Disposition: AR Plan of care discussed with: Provider, RN, Patient Disclaimer: Portions of this note may have been generated using Preact voice recognition software. Reasonable efforts were made to correct any dictation errors that resulted due to the programming of this software but some may still be present. Portions of this note including HPI, ROS, impression/plan, and examination may have been copied forward from 02/18/2022 to February 19, 2022 as to provide important historical information essential in contributing to medical decision making. Documentation has been reviewed and edited as necessary to support clinical decision making for today's visit and to reflect my own independent evaluation of this patient. The time of this note does not reflect the time I saw the patient but the time that this note was written. Faisal Crews MD Internal Medicine Pager: Team Sarah 02/19/22 7:13 [facility]10-10-2022 NoteHNO ID: [id number] Author: Susana Frey RN Service: Care Management Author Type: Registered Nurse Type: Care Mgt Progress Note Filed: 02/18/2022 1:21 PM Note Text: CARE MANAGEMENT PROGRESS NOTE SERVICE DATE: 02/18/2022 SERVICE TIME: 1:19 PM LOS: 11 days Needs Prior to Discharge: Discharge Transportation IMM Follow Up Copy Given: Yes Copy given to:: Patient Method: In Person Clinical updates sent to [facility]. Patient can admit when medically ready, no auth needed as patient is traditional Medicare AANDB. Transport packet on chart. Transport on standby. SIGNATURE: Susana Frey RN PATIENT NAME: Miri Cai DATE: February 18, 2022 TIME: 1:19 PM PAGER/CONTACT #: [phone] NoteHNO ID: [id number] Author: Bonnie Aguilera DO Service: Hospital Medicine Author Type: Physician Type: Progress Notes Filed: 02/18/2022 11:38 AM Note Text: DEPARTMENT OF HOSPITAL MEDICINE PROGRESS NOTE SERVICE DATE: 02/18/2022 SERVICE TIME: 10:12 AM Hospital Medicine/Primary Attending: Bonnie Aguilera DO NIGHT AND WEEKEND COVERAGE: [place] COVERAGE: After 7pm, please call cross cover pager #[phone] Subjective INTERVAL HPI: went into afib this am around 6 AM with rate 110-120s. Denies cp, sob, palp MEDICATIONS: Reviewed Objective PHYSICAL EXAM: BP 143/69 Pulse 113 Temp (Src) 98.2 (Axillary) Resp 18 Ht 5' 10.5[height estimate[ (1.79m) Wt 186 lb 8.2 oz (84.6kg) SpO2 95% BMI 26.37 kg/(m2). O2 Therapy: Room Air General - NAD, Calm CV - irregular, tachycardic RESP - CTA B/L ABD - soft, NT, ND +BS EXT - no edema NEURO - right arm flaccid paralysis, right leg with slight movement unable to bend knee Lines, Drains, and Airways Line Duration Peripheral 02/12/22 0400 Short Right Forearm 20 Gauge 6 days Peripheral 02/12/22 1415 Right Hand 20 Gauge 5 days Drain Duration External Collection Device 02/07/22 0315 11 days Orthopaedic Device Duration Immobilizer 02/11/22 Immobilizer (Specify in Comments) Right Humerus 7 days DATA: Diagnostic tests reviewed for today's visit: Most recent labs and imaging results. Assessment/Plan Acute left MCA stroke, cardioembolic: tPA left MCA thrombectomy and left ICA stenting complicated by reocclusion: continue Eliquis and Plavix. Aspirin stopped. Continue statin. Planning for SNF Atrial fibrillation with RVR: increased metoprolol to 50 twice daily. Cont eliquis. Monitor on telemetry Diabetes mellitus: SSI Hypertension: metoprolol Hyperlipidemia: statin Recent left total shoulder replacement: Nonweightbearing while admitted, advance in outpatient setting. Follow-up with Ortho as outpatient Medication and Non-Pharmacologic VTE Prophylaxis/Anticoagulants Anticoagulant AND Antiplatelet Medications (From admission, onward) Start Dose Route Frequency Last Action Ordered Stop 02/15/22 1900 apixaban 2.5 mg tab(s) (ELIQUIS) (apixaban tab(s) (ELIQUIS)) 2.5 mg ORAL 2 TIMES DAILY Given, 02/19 80402/15/22 1522 -- 02/08/22 0900 clopidogrel 75 mg tab(s) (PLAVIX) 75 mg PO/FT DAILY Given, 02/19 80402/08/22 0445 -- 02/08/22 0600 activity - mobilize patient (ar,oh) 02/07/22 0330 vte pharmacologic prophylaxis contraindicated (ar,oh) 02/07/22 033 pneumatic compression stockings (ar,va) 02/07/22 033 graduated compression stockings (ar,va) VTE Prophylaxis: VTE prophylaxis appropriate Disposition: SNF when rates controlled Plan of care discussed with: Provider, RN, Patient SIGNATURE: Bonnie Aguilera DO PATIENT NAME: Miri Cai DATE: February 18, 2022 TIME: 10:12 AM etx [id number] NoteHNO ID: [id number] Author: Chely Cobb MD Service: Hospital Medicine Author Type: Physician Type: Progress Notes Filed: 02/17/2022 12:17 PM Note Text: INPATIENT PROGRESS NOTE SERVICE DATE: 02/17/2022 SERVICE TIME: 12:06 PM PRIMARY SERVICE: Hospitalist Subjective CHIEF COMPLAINT: CVA INTERVAL HPI: Pt states no issues over night. Denies chest pain or dyspnea Current Facility-Administered Medications Medication Dose Route Frequency NaCl 0.9% iv flush bag 20 mL INTRAVENOUS PRN sodium chloride 0.9 % (flush) 3-5 mL (BD POSIFLUSH) 3-5 mL INTRAVENOUS q 12 H atorvastatin 80 mg tab(s) (LIPITOR) 80 mg ORAL/FEEDING TUBE AT BEDTIME acetaminophen 650 mg tab(s) (TYLENOL) 650 mg ORAL/FEEDING TUBE q 4 H PRN clopidogrel 75 mg tab(s) (PLAVIX) 75 mg ORAL/FEEDING TUBE DAILY dextrose 15 gram/32 mL 15 g (TRUEPLUS) 15 g ORAL PRN Or glucagon 1 mg injection 1 mg INTRAMUSCULAR PRN Or dextrose 10% iv bolus 12.5 g INTRAVENOUS PRN insulin lispro injection (rapid acting) (ADMELOG) SUBCUTANEOUS w MEALS AND HS tamsulosin 0.4 mg cap(s) (FLOMAX) 0.4 mg ORAL DAILY metoprolol tartrate (short acting) 25 mg tab(s) (LOPRESSOR) 25 mg ORAL/FEEDING TUBE q 12 H apixaban 2.5 mg tab(s) (ELIQUIS) 2.5 mg ORAL BID potassium chloride 40 mEq oral powder (KLOR-CON) 40 mEq ORAL DAILY ROS: All remaining ROS >12 were negative Objective PHYSICAL EXAM: BP 134/61 Pulse 93 Temp (Src) 97.5 (Oral) Resp 16 Ht 5' 10.5[height estimate[ (1.79m) Wt 186 lb 4.6 oz (84.5kg) SpO2 93% BMI 26.34 kg/(m2). O2 Therapy: Room Air Physical Exam Performed GENERAL: Alert, no distress, cooperative OROPHARYNX: Lips, mucosa, and tongue normal. Teeth and gums normal. Oropharynx normal. NECK: No jugulovenous distention, No carotid bruits, Carotid pulse normal contour, Supple LUNGS: Lungs clear to auscultation, Good diaphragmatic excursion CARDIAC: Normal S1 and S2; no rubs, murmurs, or gallops ABDOMEN: Abdomen soft, non-tender, BS normal, No masses or organomegaly EXTREMITIES: Extremities normal, no deformities, edema, clubbing or skin discoloration. Good capillary refill., No ulcers DATA: Diagnostic tests reviewed for today's visit: Most recent labs and imaging results. 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 Bullock As outpt. - Non weight bearing of left upper ext FEN - Stable lytes Heme -Chronic Anemia ( Normocytic) H/H at 8.1/25.2 as of 02/15 Type 2 diabetes mellitus without complication, without long-term current use of insulin - BG reviewed and stable BPH with Urinary retention - Stable on Flomax Disposition - Follow up with caretaker grounds recs. Per note no Precert needed and can arrange d/c when medically ready. Medication and Non-Pharmacologic VTE Prophylaxis/Anticoagulants Anticoagulant AND Antiplatelet Medications (From admission, onward) Start Dose Route Frequency Last Action Ordered Stop 02/15/22 1900 apixaban 2.5 mg tab(s) (ELIQUIS) (apixaban tab(s) (ELIQUIS)) 2.5 mg ORAL 2 TIMES DAILY Given, 02/17 94702/15/22 1522 -- 02/08/22 0900 clopidogrel 75 mg tab(s) (PLAVIX) 75 mg PO/FT DAILY Given, 02/17 94702/08/22 0445 -- 02/08/22 0600 activity - mobilize patient (ar,va) 02/07/22 033 vte pharmacologic prophylaxis contraindicated (ar,va) 02/07/22 033 pneumatic compression stockings ([place] 02/07/22 033 graduated compression stockings [place] VTE Prophylaxis: VTE prophylaxis appropriate SIGNATURE: Chely Cobb MD PATIENT NAME: Miri Cai DATE: February 17, 2022 TIME: 12:03 [facility]10-08-2022 NoteHNO ID: [id number] Author: Chely Cobb MD Service: Hospital Medicine Author Type: Physician Type: Progress Notes Filed: 02/16/2022 4:03 PM Note Text: INPATIENT PROGRESS NOTE SERVICE DATE: 02/16/2022 SERVICE TIME: 3:33 PM PRIMARY SERVICE: Hospitalist Subjective CHIEF COMPLAINT: CVA INTERVAL HPI: Pt states he has no issues over night. Tolerating diet Current Facility-Administered Medications Medication Dose Route Frequency NaCl 0.9% iv flush bag 20 mL INTRAVENOUS PRN sodium chloride 0.9 % (flush) 3-5 mL (BD POSIFLUSH) 3-5 mL INTRAVENOUS q 12 H atorvastatin 80 mg tab(s) (LIPITOR) 80 mg ORAL/FEEDING TUBE AT BEDTIME acetaminophen 650 mg tab(s) (TYLENOL) 650 mg ORAL/FEEDING TUBE q 4 H PRN clopidogrel 75 mg tab(s) (PLAVIX) 75 mg ORAL/FEEDING TUBE DAILY dextrose 15 gram/32 mL 15 g (TRUEPLUS) 15 g ORAL PRN Or glucagon 1 mg injection 1 mg INTRAMUSCULAR PRN Or dextrose 10% iv bolus 12.5 g INTRAVENOUS PRN insulin lispro injection (rapid acting) (ADMELOG) SUBCUTANEOUS w MEALS AND HS tamsulosin 0.4 mg cap(s) (FLOMAX) 0.4 mg ORAL DAILY metoprolol tartrate (short acting) 25 mg tab(s) (LOPRESSOR) 25 mg ORAL/FEEDING TUBE q 12 H apixaban 2.5 mg tab(s) (ELIQUIS) 2.5 mg ORAL BID potassium chloride 20 mEq oral powder (KLOR-CON) 20 mEq ORAL DAILY ROS: All remaining ROS >12 were negative Objective PHYSICAL EXAM: BP 137/65 Pulse 95 Temp (Src) 98.1 (Oral) Resp 18 Ht 5' 10.5[height estimate[ (1.79m) Wt 186 lb 15.2 oz (84.8kg) SpO2 97% BMI 26.44 kg/(m2). O2 Therapy: Room Air Physical Exam Performed GENERAL: Alert, no distress, cooperative OROPHARYNX: Lips, mucosa, and tongue normal. Teeth and gums normal. Oropharynx normal. NECK: No jugulovenous distention, No carotid bruits, Carotid pulse normal contour, Supple LUNGS: Lungs clear to auscultation, Good diaphragmatic excursion CARDIAC: Normal S1 and S2; no rubs, murmurs, or gallops ABDOMEN: Abdomen soft, non-tender, BS normal, No masses or organomegaly EXTREMITIES: Extremities normal, no deformities, edema, clubbing or skin discoloration. Good capillary refill., No ulcers NEURO: Left facial droop. DATA: Diagnostic tests reviewed for today's visit: Most recent labs and imaging results. 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 Localized mass effect without significant midline shift. Previously reported confluent petechial hemorrhages are better seen on MRI examination. No CT evidence of acute space-occupying parenchymal hematoma. - f/u with Neurology recs Status post reverse total replacement of left shoulder on 02/06 - s/p Ortho consult on 02/07 and needing follow up with Dr. Bullock As outpt. - Non weight bearing of left upper ext FEN - Hypokalemia with K of 3.4 and will replace. Heme -Chronic Anemia ( Normocytic) H/H at 8.1/25.2 Type 2 diabetes mellitus without complication, without long-term current use of insulin - BG reviewed and stable BPH with Urinary retention - Stable on Flomax Disposition - Per caretaker grounds Medication and Non-Pharmacologic VTE Prophylaxis/Anticoagulants Anticoagulant AND Antiplatelet Medications (From admission, onward) Start Dose Route Frequency Last Action Ordered Stop 02/15/22 1900 apixaban 2.5 mg tab(s) (ELIQUIS) (apixaban tab(s) (ELIQUIS)) 2.5 mg ORAL 2 TIMES DAILY Given, 02/17 80802/15/22 1522 -- 02/08/22 0900 clopidogrel 75 mg tab(s) (PLAVIX) 75 mg PO/FT DAILY Given, 02/17 80802/08/22 0445 -- 02/08/22 0600 activity - mobilize patient (ar,va) 02/07/22 0330 vte pharmacologic prophylaxis contraindicated ([place] 02/07/22 033 pneumatic compression [place]ings [place] 02/07/22 0330 graduated compression stockings [place] VTE Prophylaxis: VTE prophylaxis appropriate SIGNATURE: Chely Cobb MD PATIENT NAME: Miri Cai DATE: February 16, 2022 TIME: 3:33 [facility]10-08-2022 NoteHNO ID: [id number] Author: Gerri Guzman RN Service: Nursing Author Type: Registered Nurse Type: Nursing Progress Note Filed: 02/16/2022 6:29 AM Note Text: Page to Sound admitting for admission [facility] 02-16-2022 NoteHNO ID: [id number] Author: Interface Note Service: ? Author Type: ? Type: Progress Notes Filed: 02/16/2022 3:10 AM Note Text: Epic Scheduled Downtime: 02/16/2022 1:00:00 AM to 02/16/2022 2:54:00 [facility]10-07-2022 NoteHNO ID: [id number] Author: April Garcia MD Service: Hospital Medicine Author Type: Physician Type: Progress Notes Filed: 02/15/2022 6:36 PM Note Text: Subjective - Follow up for [facility], this is day 8 of this stay, chart reviewed below. PAST MEDICAL HISTORY Diagnosis Date Arrhythmia Diabetes mellitus (HCC) Essential hypertension Per ICU 02/07 - 'Patient is a 76 year old M with past medical history significant for HTN, DM type 2, pAF on Eliquis (held for surgery), who presents as transfer from [place] ED with findings of acute L MCA stroke. Patient was admitted to [facility] after undergoing elective left shoulder replacement yesterday AM (02/06). Post operatively, he was in his usual state of health aside from decreased ROM to LUE. LKW of 2100. At 2130, RN found patient to have sudden onset Right upper and lower extremity weakness, facial droop and aphasia. Stroke evaluation performed and patient found to have early ischemic changes to L insula, ASPECT score of 9. CTA demonstrating proximal L cervical ICA occlusion w/ distal reconstitution, then re-occlusion at M2. Initially felt to be high risk for TNK given recent surgery. Plan to transfer to [facility] for mechanical thrombectomy. However, patient could only be transported via ground d/t weather. Given delay, long discussion had between Dr. Alexander, stroke neurology, Hospital team at [place] and ortho surgeon. Ultimately decided to administer TNK. This was given at 2230. Shortly thereafter, patient reportedly diaphoretic and concern for ST elevation in II, III, aVF on EKG. On arrival, patient is awake and alert. He is globally aphasic. 0/5 strength on the LUE/LLE, + facial droop, No visual deficit. Does cross midline. Some L neglect. NIHSS score of 18. Tachycardic on tele. Aflutter HR 120s-130s. EKG here with IRBBB (noted on previous EKG), new what appears to be ST elevation w/ TWI over Q waves most prominent in III, aVF suggestive of possible late PA. Patient appears comfortable and in no distress. Taken to NIL for thrombectomy. NSICU admit post NIL for continued stroke management. ' Per Neurology 02/14 - Reviewed MRI brain with Dr. Gonzalez, Will repeat head CT in the morning tomorrow (02/15) Neurology team will review, if there is no interval worsening or hemorrhage then it would be OK to start the eliquis tomorrow in addition to the plavix (will need to stay on plavix d/t stent) and stop the aspirin at that time. Once neurology YI reviews CTH tomorrow, will communicate with primary team ok to start eliquis and plavix and will then be OK for discharge from neuro standpoint. Per Neurology 02/15 - 'CT brain: Acute left MCA territory infarct. Confluent petechial hemorrhage in the left basal ganglia infarct is better visualized on previous MR. No space-occupying hematoma. Local mass effect. Okay to start eliquis today in addition to the plavix (will need to stay on plavix d/t stent) and stop the aspirin' Per vamp marker 02/15 - 'Patient with ischemic stroke. DC plan is for AR at [facility]. They can accept patient when ready. No precert needed as patient is Medicare AANDB.' Visit with pt today at 1605 - discussed restarting his home Eliquis at a lower dose today, monitoring overnight, if stable, could increase to home dose, pt seemed to understand plan. Had no complaints, see exam below. Objective - 02/15/22 0500 02/15/22 0743 02/15/22 1200 02/15/22 1454 BP: 125/65 131/60 127/66 129/65 Pulse: 104 72 75 89 Resp: 18 18 18 18 Temp: 36.3 ?C (97.3 ?F) 36.6 ?C (97.9 ?F) 37 ?C (98.6 ?F) 36.5 ?C (97.7 ?F) TempSrc: Oral Oral Axillary Oral SpO2: 93% 94% 95% 96% Weight: Height: Latest Reference Range AND Units 02/13/22 04:28 02/15/22 05:05 Sodium 136 - 144 mmol/L 146 (H) 144 Potassium 3.7 - 5.1 mmol/L 3.5 (L) 3.3 (L) Chloride 97 - 105 mmol/L 111 (H) 109 (H) CO2 22 - 30 mmol/L 23 24 BUN 9 - 24 mg/dL 24 25 (H) Creatinine 0.73 - 1.22 mg/dL 0.70 (L) 0.77 Glucose 74 - 99 mg/dL 111 (H) 118 (H) Calcium 8.5 - 10.2 mg/dL 8.6 8.6 (H): Data is abnormally high (L): Data is abnormally low Latest Reference Range AND Units 02/13/22 04:28 02/15/22 05:05 WBC 3.70 - 11.00 k/uL 7.12 7.43 RBC 4.20 - 6.00 m/uL 2.47 (L) 2.65 (L) Hemoglobin 13.0 - 17.0 g/dL 7.8 (L) 8.1 (L) Hematocrit 39.0 - 51.0 % 23.7 (L) 25.2 (L) Platelet Count 150 - 400 k/uL 248 292 MCV 80.0 - 100.0 fL 96.0 95.1 MCH 26.0 - 34.0 pg 31.6 30.6 MCHC 30.5 - 36.0 g/dL 32.9 32.1 MPV 9.0 - 12.7 fL 10.3 10.1 RDW-CV 11.5 - 15.0 % 14.7 14.8 (L): Data is abnormally low Current Facility-Administered Medications Medication Dose Route Frequency metoprolol tartrate (short acting) 25 mg tab(s) (LOPRESSOR) 25 mg ORAL/FEEDING TUBE q 12 H tamsulosin 0.4 mg cap(s) (FLOMAX) 0.4 mg ORAL DAILY dextrose 15 gram/32 mL 15 g (TRUEPLUS) 15 g ORAL PRN Or glucagon 1 mg injection 1 mg INTRAMUSCULAR PRN Or dextrose 10% iv bolu (more content not included)...[facility] 02-15-2022 NoteHNO ID: [id number] Author: Susana Frey RN Service: Care Management Author Type: Registered Nurse Type: Care Mgt Progress Note Filed: 02/15/2022 2:51 PM Note Text: CARE MANAGEMENT PROGRESS NOTE SERVICE DATE: 02/15/2022 SERVICE TIME: 2:38 PM LOS: 8 days Patient with ischemic stroke. DC plan is for AR at [facility]. They can accept patient when ready. No precert needed as patient is Medicare AANDB. Transport packet on chart DC cot transport on standby IMM given. Please contact family at dc time. SIGNATURE: Susana Frey RN PATIENT NAME: Miri Cai DATE: February 15, 2022 TIME: 2:38 PM PAGER/CONTACT #: [phone] [facility] 02-14-2022 NoteHNO ID: [id number] Author: Max Nazario APRN.SHORE MAN Service: Neurology General Author Type: Nurse Practitioner Type: Plan of Care Filed: 02/14/2022 3:37 PM Note Text: Neurology Reviewed MRI brain with Dr. Gonzalez, Will repeat head CT in the morning tomorrow (02/15) Neurology team will review, if there is no interval worsening or hemorrhage then it would be OK to start the eliquis tomorrow in addition to the plavix (will need to stay on plavix d/t stent) and stop the aspirin at that time. Once neurology YI reviews CTH tomorrow, will communicate with primary team ok to start eliquis and plavix and will then be OK for discharge from neuro standpoint. Max Nazario APRN.SHORE MAN #[id number]-2022 NoteHNO ID: [id number] Author: Susana Frey RN Service: Care Management Author Type: Registered Nurse Type: Care Mgt Progress Note Filed: 02/14/2022 2:21 PM Note Text: CARE MANAGEMENT PROGRESS NOTE SERVICE DATE: 02/14/2022 SERVICE TIME: 2:21 PM LOS: 7 days IMM Follow Up Copy Given: Yes Copy given to:: Patient Workforce Development Specialist Workforce Development Specialist Name/Relationship: patient, sister, and niece, all verbalized understanding Method: In Person SIGNATURE: Susana Frey RN PATIENT NAME: Miri Cai DATE: February 14, 2022 TIME: 2:21 PM PAGER/CONTACT #: [phone] Light [facility]land [facility] 02-14-2022 NoteHNO ID: [id number] Author: Susana Frey RN Service: Care Management Author Type: Registered Nurse Type: Care Mgt Progress Note Filed: 02/14/2022 2:20 PM Note Text: CARE MANAGEMENT PROGRESS NOTE SERVICE DATE: 02/14/2022 SERVICE TIME: 2:19 PM LOS: 7 days Needs Prior to Discharge: Discharge Transportation;To Be Determined Updated patient and family (sister and niece) that [facility] can accept patient. Patient is traditional Medicare A AND B and will not need precert. Patient will need dc transport. SIGNATURE: Susana Frey RN PATIENT NAME: Miri Cai DATE: February 14, 2022 TIME: 2:19 PM PAGER/CONTACT #: [phone] Light Inland Hospital 02-14-2022 NoteHNO ID: [id number] Author: Srinivas Fields MD Service: Hospital Medicine Author Type: Physician Type: Progress Notes Filed: 02/14/2022 12:16 PM Note Text: DEPARTMENT OF HOSPITAL MEDICINE PROGRESS NOTE Hospital Medicine/Primary Attending: Srinivas Fields MD NIGHT AND WEEKEND COVERAGE: [place] COVERAGE: After 7pm, please call cross cover pager #[phone] Subjective INTERVAL HPI: Pt seen and examined. MEDICATIONS: Reviewed Objective PHYSICAL EXAM: BP 116/53 Pulse 92 Temp (Src) 94.6 (Oral) Resp 24 Ht 5' 10.5[height estimate[ (1.79m) Wt 193 lb 12.6 oz (87.9kg) SpO2 98% BMI 27.40 kg/(m2). O2 Therapy: Room Air Physical Exam Performed GENERAL: Alert, no distress, cooperative NECK: Supple LUNGS: Lungs clear to auscultation CARDIAC: Normal S1 and S2; no rubs, murmurs, or gallops ABDOMEN: Abdomen soft, non-tender, BS normal EXTREMITIES: Extremities normal NEURO: Grossly normal cognition, motor function, and cranial nerves III-XII DATA: Diagnostic tests reviewed for today's visit: Most recent labs and imaging results. CBC, Coags, BMP, Mg, Phos Recent Labs 02/13/22 0428 02/12/22 0241 02/11/22 1746 WBC 7.12 6.56 -- HB 7.8* 7.2* -- HCT 23.7* 22.2* -- PLT 248 207 -- NA 146* 146* -- K 3.5* 3.4* 3.7 CHLOR 111* 112* -- CO2 23 25 -- BUN 24 24 -- CREAT 0.70* 0.76 -- GLUC 111* 103* -- CA 8.6 8.4* -- MG -- 2.0 -- P -- 2.9 -- Current Facility-Administered Medications Medication Dose Route Frequency NaCl 0.9% iv flush bag 20 mL INTRAVENOUS PRN sodium chloride 0.9 % (flush) 3-5 mL (BD POSIFLUSH) 3-5 mL INTRAVENOUS q 12 H atorvastatin 80 mg tab(s) (LIPITOR) 80 mg ORAL/FEEDING TUBE AT BEDTIME acetaminophen 650 mg tab(s) (TYLENOL) 650 mg ORAL/FEEDING TUBE q 4 H PRN aspirin 81 mg chewable tab(s) 81 mg ORAL/FEEDING TUBE DAILY clopidogrel 75 mg tab(s) (PLAVIX) 75 mg ORAL/FEEDING TUBE DAILY enoxaparin 40 mg injection (LOVENOX) 40 mg SUBCUTANEOUS q 24 HR dextrose 15 gram/32 mL 15 g (TRUEPLUS) 15 g ORAL PRN Or glucagon 1 mg injection 1 mg INTRAMUSCULAR PRN Or dextrose 10% iv bolus 12.5 g INTRAVENOUS PRN insulin lispro injection (rapid acting) (ADMELOG) SUBCUTANEOUS w MEALS AND HS tamsulosin 0.4 mg cap(s) (FLOMAX) 0.4 mg ORAL DAILY metoprolol tartrate (short acting) 25 mg tab(s) (LOPRESSOR) 25 mg ORAL/FEEDING TUBE q 12 H Assessment/Plan Problem List Acute ischemic left MCA stroke (HCC) POA: Status not on file Occlusion of middle cerebral artery, left POA: Status not on file Hx of atrial flutter POA: Status not on file Atrial flutter with rapid ventricular response (HCC) POA: Status not on file ICAO (internal carotid artery occlusion), left POA: Status not on file Status post reverse total replacement of left shoulder POA: Status not on file Type 2 diabetes mellitus without complication, without long-term current use of insulin (HCC) POA: Status not on file HTN (hypertension) POA: Status not on file HLD (hyperlipidemia) POA: Status not on file Urinary retention POA: Status not on file 76 year old M with past medical history significant for HTN, DM type 2, pAF on Eliquis (held for surgery), who presents as transfer from [place] ED with findings of acute L MCA stroke. Patient was admitted to [facility] after undergoing elective left shoulder replacement yesterday AM (02/06). Post operatively, he was in his usual state of health aside from decreased ROM to LUE. LKW of 2100. At 2130, RN found patient to have sudden onset Right upper and lower extremity weakness, facial droop and aphasia. Stroke evaluation performed and patient found to have early ischemic changes to L insula, ASPECT score of 9. CTA demonstrating proximal L cervical ICA occlusion w/ distal reconstitution, then re-occlusion at M2. Initially felt to be high risk for TNK given recent surgery. Plan to transfer to [facility] for mechanical thrombectomy. However, patient could only be transported via ground d/t weather. Given delay, long discussion had between Dr. Alexander, stroke neurology, Hospital team at [place] and ortho surgeon. Ultimately decided to administer TNK. This was given at 2230. Shortly thereafter, patient reportedly diaphoretic and concern for ST elevation in II, III, aVF on EKG. On arrival, patient is awake and alert. He is globally aphasic. 0/5 strength on the LUE/LLE, + facial droop, No visual deficit. Does cross midline. Some L neglect. NIHSS score of 18. Tachycardic on tele. Aflutter HR 120s-130s. EKG here with IRBBB (noted on previous EKG), new what appears to be ST elevation w/ TWI over Q waves most prominent in III, aVF suggestive of possible late PA. Patient appears comfortable and in no distress. Taken to NIL for thrombectomy. NSICU admit post NIL for continued stroke management. # Acute left MCA stroke # Left MCA occlusion -TNK administration at 2230 02/06 -S/p NIL for L ICA/MCA stenting 02/07 -C/b re-occlusion of LICA stent and ba (more content not included)...[facility]10-05-2022 NoteHNO ID: [id number] Author: Srinivas Fields MD Service: Hospital Medicine Author Type: Physician Type: Progress Notes Filed: 02/13/2022 1:54 PM Note Text: DEPARTMENT OF HOSPITAL MEDICINE PROGRESS NOTE Hospital Medicine/Primary Attending: Srinivas Fields MD NIGHT AND WEEKEND COVERAGE: [place] COVERAGE: After 7pm, please call cross cover pager #[phone] Subjective INTERVAL HPI: Pt seen and examined. MEDICATIONS: Reviewed Objective PHYSICAL EXAM: BP 116/60 Pulse 84 Temp (Src) 98.3 (Temporal) Resp 26 Ht 5' 10.5[height estimate[ (1.79m) Wt 190 lb 4.1 oz (86.3kg) SpO2 99% BMI 26.90 kg/(m2). O2 Therapy: Room Air Physical Exam Performed GENERAL: Alert, no distress, cooperative NECK: Supple LUNGS: Lungs clear to auscultation CARDIAC: Normal S1 and S2; no rubs, murmurs, or gallops ABDOMEN: Abdomen soft, non-tender, BS normal EXTREMITIES: Extremities normal NEURO: Grossly normal cognition, motor function, and cranial nerves III-XII DATA: Diagnostic tests reviewed for today's visit: Most recent labs and imaging results. CBC, Coags, BMP, Mg, Phos Recent Labs 02/13/22 0428 02/12/22 0241 02/11/22 1746 02/11/22 0949 WBC 7.12 6.56 -- 7.61 HB 7.8* 7.2* -- 7.6* HCT 23.7* 22.2* -- 23.8* PLT 248 207 -- 217 NA 146* 146* -- 146* K 3.5* 3.4* 3.7 2.9* CHLOR 111* 112* -- 110* CO2 23 25 -- 25 BUN 24 24 -- 22 CREAT 0.70* 0.76 -- 0.79 GLUC 111* 103* -- 159* CA 8.6 8.4* -- 8.5 MG -- 2.0 -- 2.2 P -- 2.9 -- 2.7 Current Facility-Administered Medications Medication Dose Route Frequency NaCl 0.9% iv flush bag 20 mL INTRAVENOUS PRN sodium chloride 0.9 % (flush) 3-5 mL (BD POSIFLUSH) 3-5 mL INTRAVENOUS q 12 H atorvastatin 80 mg tab(s) (LIPITOR) 80 mg ORAL/FEEDING TUBE AT BEDTIME acetaminophen 650 mg tab(s) (TYLENOL) 650 mg ORAL/FEEDING TUBE q 4 H PRN potassium chloride ER 20-40 mEq tab(s) (K-DUR, KLOR-CON) 20-40 mEq ORAL/FEEDING TUBE PRN Or potassium chloride iv piggyback 20 mEq/100 mL 20 mEq INTRAVENOUS PRN magnesium sulfate 2 g in sterile water 50 ml 2 g INTRAVENOUS PRN phosphorus 500 mg tab(s) (K PHOS NEUTRAL) 500 mg ORAL/FEEDING TUBE PRN(NO DISPENSE) calcium gluconate 4 g in NaCl 0.9% 250 mL 4 g INTRAVENOUS PRN aspirin 81 mg chewable tab(s) 81 mg ORAL/FEEDING TUBE DAILY clopidogrel 75 mg tab(s) (PLAVIX) 75 mg ORAL/FEEDING TUBE DAILY enoxaparin 40 mg injection (LOVENOX) 40 mg SUBCUTANEOUS q 24 HR sodium chloride 0.9 % (flush) 10 mL (BD POSIFLUSH) 10 mL INTRAVENOUS q 12 H sodium chloride 0.9 % (flush) 20 mL (BD POSIFLUSH) 20 mL INTRAVENOUS PRN dextrose 15 gram/32 mL 15 g (TRUEPLUS) 15 g ORAL PRN Or glucagon 1 mg injection 1 mg INTRAMUSCULAR PRN Or dextrose 10% iv bolus 12.5 g INTRAVENOUS PRN insulin lispro injection (rapid acting) (ADMELOG) SUBCUTANEOUS w MEALS AND HS tamsulosin 0.4 mg cap(s) (FLOMAX) 0.4 mg ORAL DAILY sodium chloride 0.9 % (flush) 10 mL (BD POSIFLUSH) 10 mL INTRAVENOUS q 12 H sodium chloride 0.9 % (flush) 20 mL (BD POSIFLUSH) 20 mL INTRAVENOUS PRN PHENYLephrine 80 mg in D5W 250 mL (ENZO-SYNEPHRINE) 25-300 mcg/min INTRAVENOUS CONTINUOUS metoprolol tartrate (short acting) 25 mg tab(s) (LOPRESSOR) 25 mg ORAL/FEEDING TUBE q 12 H Assessment/Plan Problem List Acute ischemic left MCA stroke (HCC) POA: Status not on file Occlusion of middle cerebral artery, left POA: Status not on file Hx of atrial flutter POA: Status not on file Atrial flutter with rapid ventricular response (HCC) POA: Status not on file ICAO (internal carotid artery occlusion), left POA: Status not on file Status post reverse total replacement of left shoulder POA: Status not on file Type 2 diabetes mellitus without complication, without long-term current use of insulin (HCC) POA: Status not on file HTN (hypertension) POA: Status not on file HLD (hyperlipidemia) POA: Status not on file Urinary retention POA: Status not on file 76 year old M with past medical history significant for HTN, DM type 2, pAF on Eliquis (held for surgery), who presents as transfer from [place] ED with findings of acute L MCA stroke. Patient was admitted to [facility] after undergoing elective left shoulder replacement yesterday AM (02/06). Post operatively, he was in his usual state of health aside from decreased ROM to LUE. LKW of 2100. At 2130, RN found patient to have sudden onset Right upper and lower extremity weakness, facial droop and aphasia. Stroke evaluation performed and patient found to have early ischemic changes to L insula, ASPECT score of 9. CTA demonstrating proximal L cervical ICA occlusion w/ distal reconstitution, then re-occlusion at M2. Initially felt to be high risk for TNK given recent surgery. Plan to transfer to [facility] for mechanical thrombectomy. However, patient could only be transported via ground d/t weather. Given delay, long discussion had between Dr. Alexander, stroke neurology, Hospital team at [facility] (more content not included)...[facility] 02-13-2022 NoteHNO ID: [id number] Author: Emma Farooq RN Service: Care Management Author Type: Registered Nurse Type: Care Mgt Progress Note Filed: 02/13/2022 10:45 AM Note Text: CARE MANAGEMENT PROGRESS NOTE SERVICE DATE: 02/13/2022 SERVICE TIME: 1035 LOS: 6 days Needs Prior to Discharge: Bed Availability;Discharge Transportation Chart reviewed, plan for patient to transition to a [facility] today. Met with patient at bedside today to discuss Rehab options. Pt. Still with expressive aphasia, however is able to verbalize that he has no preference in Acute Rehab facilities. Family is requesting [facility] Acute inpatient unit, they have accepted patient. Placed TC to patient's sister Laura [phone]. Updated her on acceptance by [facility]. Pt. Will need cot transportation at d/c. Will continue to follow. SIGNATURE: Emma Farooq RN PATIENT NAME: Miri Cai DATE: February 13, 2022 TIME: 10:35 AM PAGER/CONTACT #: [phone] 02-12-2022 NoteHNO ID: [id number] Author: Ryan Pal MD Service: Neurology ICU Author Type: Physician Type: Progress Notes Filed: 02/12/2022 8:11 PM Note Text: I personally evaluated and examined the patient alongside my resident. I agree with with the assessment and plan and physical examination documented below. The plans are to transfer the patient out of the ICU given that he has tolerated being off pressors. His atrial flutter is controlled with the current beta-lorraine regimen. The patient continues on dual antiplatelet therapy for his stents and the plan will be for outpatient reinitiation of anticoagulation. SERVICE DATE: 02/12/2022 SERVICE TIME: 10:40 AM NEURO ICU PROGRESS NOTE DATE OF ADMISSION: 02/07/2022 Subjective Hospital Course: 02/08: No acute overnight events. Neuro exam with minimal change. Able to get clear words out at times. Minimal movement to RLE. None to RUE spontaneously. Aflutter, rate elevated transiently overnight requiring cardizem gtt briefly. Post NIL CT unremarkable. No evidence of hemorrhage. 02/11: No acute changes overnight. Exam unchanged. Weaning phenylephrine. Good urine output. 02/12: No acute events overnight. Off phenylephrine. Occasional transient tachycardia. Straight cath for urinary retention Events Since Last Note: See hospital course Objective BP 103/57 Pulse 94 Temp 36.7 ?C (98.1 ?F) (Oral) Resp 24 Ht 179.1 cm (5' 10.5) Wt 86.3 kg (190 lb 4.1 oz) SpO2 99% BMI 26.91 kg/m? Weight change: Neuro: AANDO x2 GCS: Eyes: 4. Spontaneous Verbal: 4: Confused Motor: 6: Obeys Motor commands Total: 14 CRANIAL NERVES: Right facial droop. Pupils PERRL. No dysarthria. MOTOR STRENGTH: RUE 2/5, LUE 5/5 mine wirer strength ( limited by Ortho), RLE 3/5, LLE 5/5 SENSATION: Diminished RLE, intact otherwise to light touch CV: Irregular rate and rhythm Pulm: CTAB GI/: Soft, nontender, nondistended Skin/Extremities: Edema- No Peripheral pulses- Present all extremities Diagnostic tests reviewed for today's visit: Most recent labs and imaging results. Lines, Drains, and Airways Line Duration Central Line Triple Lumen 02/08/22 1537 Right Neck 3 days Peripheral 02/12/22 0400 Short Right Forearm 20 Gauge <1 day Drain Duration External Collection Device 02/07/22 0315 5 days Orthopaedic Device Duration Immobilizer 02/11/22 Immobilizer (Specify in Comments) Right Humerus 1 day ICU Checklist Last Documented/Reviewed time: 02/12/2022 10:34 AM A= Assess, Prevent, Manage Pain Pain adequately controlled?: Yes C= Choice of Sedation and Analgesia RASS at Goal?: Yes B= Both Spontaneous Awakening and Breathing Trials Ventilator: None D= Delirium: Assess, Prevent and Manage ICU Delirium Status: CAM Negative - no action required Sleep adequate?: Yes Restraint Status: None E= Early Mobility/Excercise ICU Mobility: ICU Mobility-Pt Has Been Out of Bed: PT Consult - Specify F= Family Engagement and Empowerment ICU plan of care visit at bedside in last 24 hours: Yes, Provider, RN, Patient/ designee, Patient/ Family updated ICU Disposition: ICU Disposition- Is Patient Clinically Ready to Transfer to [facility] or SDU?: No Discharge Planning: To be determined Prevention: Line Status: Central multi-lumen catheter Central Line Status: Able to remove today Parks Status: None Pressure Injury Status: None GI/Stress Ulcer Prophylaxis: None - not required Nutrition is at Goal: Advancing to goal VTE Prophylaxis: Chemoprophylaxis: Low Molecular Wt Heparin Mechanical Prophylaxis: Knee high SCD PERSONAL INVOLVEMENT IN CARE: Reviewing initiation, responses and adjustments to therapies, coordination of care, and updating family with Staff Physician, Dr. Pal. Assessment AND Plan 76 year old M with past medical history significant for HTN, DM type 2, pAF on Eliquis (held for surgery), who presents as transfer from [place] ED with findings of acute L MCA stroke. Patient was admitted to [facility] after undergoing elective left shoulder replacement yesterday AM (02/06). Post operatively, he was in his usual state of health aside from decreased ROM to LUE. LKW of 2100. At 2130, RN found patient to have sudden onset Right upper and lower extremity weakness, facial droop and aphasia. Stroke evaluation performed and patient found to have early ischemic changes to L insula, ASPECT score of 9. CTA demonstrating proximal L cervical ICA occlusion w/ distal reconstitution, then re-occlusion at M2. Initially felt to be high risk for TNK given recent surgery. Plan to transfer to [facility] for mechanical thrombectomy. However, patient could only be transported via ground d/t weather. Given delay, long discussion had between Dr. Alexander, stroke neurology, Hospital team at [facility] and ortho surgeon. Ultimately deci (more content not included)...[facility]10-03-2022 NoteHNO ID: [id number] Author: Roby Alexander MD Service: ? Author Type: Physician Type: Progress Notes Filed: 02/11/2022 3:37 PM Note Text: Progress Note dictated.[facility]10-03-2022 NoteHNO ID: [id number] Author: Ryan Pal MD Service: Neurology ICU Author Type: Physician Type: Progress Notes Filed: 02/11/2022 4:13 PM Note Text: I personally evaluated and examined this patient alongside with my resident. Examination and assessment and plan documented below. In short the patient has been progressing well from a neurological perspective, able to tolerate a diet. Still requiring small dose of phenylephrine. The plan is to change his blood pressure parameters to MAP greater than 65 today to see if he can come off of phenylephrine. Midodrine will be added as a supplement if needed. Reassess for possibility of transfer pending vasopressor requirement. SERVICE DATE: 02/11/2022 SERVICE TIME: 12:30 PM NEURO ICU PROGRESS NOTE DATE OF ADMISSION: 02/07/2022 Subjective Hospital Course: 02/08: No acute overnight events. Neuro exam with minimal change. Able to get clear words out at times. Minimal movement to RLE. None to RUE spontaneously. Aflutter, rate elevated transiently overnight requiring cardizem gtt briefly. Post NIL CT unremarkable. No evidence of hemorrhage. 02/11: No acute changes overnight. Exam unchanged. Weaning phenylephrine. Good urine output. Events Since Last Note: See hospital course Objective BP 108/60 Pulse 90 Temp 36.6 ?C (97.9 ?F) Resp 27 Ht 179.1 cm (5' 10.5) Wt 88.1 kg (194 lb 3.6 oz) SpO2 98% BMI 27.47 kg/m? Weight change: Neuro: AO x2 GCS: Eyes: 4. Spontaneous Verbal: 4: Confused Motor: 6: Obeys Motor commands Total: 14 CRANIAL NERVES: Pupils PERRL, right facial droop MOTOR STRENGTH: RUE 2/5, LUE shoulder immobilizer, moves fingers 3/5, LLE 4/5, RLE 3/5 SENSATION: Intact light touch CV: Irregular Pulm: CTAB GI/: S/NT/ND Skin/Extremities: Edema- No Peripheral pulses- Present all extremities Diagnostic tests reviewed for today's visit: Most recent labs and imaging results. Lines, Drains, and Airways Line Duration Central Line Triple Lumen 02/08/22 1537 Right Neck 2 days Drain Duration External Collection Device 02/07/22 0315 4 days Orthopaedic Device Duration Immobilizer 02/11/22 Immobilizer (Specify in Comments) Right Humerus <1 day ICU Checklist Last Documented/Reviewed time: 02/11/2022 12:24 PM A= Assess, Prevent, Manage Pain Pain adequately controlled?: Yes C= Choice of Sedation and Analgesia RASS at Goal?: Yes B= Both Spontaneous Awakening and Breathing Trials Ventilator: None D= Delirium: Assess, Prevent and Manage ICU Delirium Status: CAM Negative - no action required Sleep adequate?: Yes Restraint Status: None E= Early Mobility/Excercise ICU Mobility: ICU Mobility-Pt Has Been Out of Bed: PT Consult - Specify F= Family Engagement and Empowerment ICU plan of care visit at bedside in last 24 hours: Yes, Provider, RN, Patient/ designee, Patient/ Family updated ICU Disposition: ICU Disposition- Is Patient Clinically Ready to Transfer to [facility] or SDU?: No Discharge Planning: To be determined Prevention: Line Status: Central multi-lumen catheter Central Line Status: Reason to maintain Central Line Reason to Maintain: Vasoactive meds Parks Status: None Pressure Injury Status: None GI/Stress Ulcer Prophylaxis: None - not required Nutrition is at Goal: Advancing to goal VTE Prophylaxis: Chemoprophylaxis: Low Molecular Wt Heparin Mechanical Prophylaxis: Knee high SCD PERSONAL INVOLVEMENT IN CARE: Reviewing initiation, responses and adjustments to therapies, coordination of care, and updating family with Staff Physician, Dr. Pal. Assessment AND Plan 76 year old M with past medical history significant for HTN, DM type 2, pAF on Eliquis (held for surgery), who presents as transfer from [place] ED with findings of acute L MCA stroke. Patient was admitted to [facility] after undergoing elective left shoulder replacement yesterday AM (02/06). Post operatively, he was in his usual state of health aside from decreased ROM to LUE. LKW of 2100. At 2130, RN found patient to have sudden onset Right upper and lower extremity weakness, facial droop and aphasia. Stroke evaluation performed and patient found to have early ischemic changes to L insula, ASPECT score of 9. CTA demonstrating proximal L cervical ICA occlusion w/ distal reconstitution, then re-occlusion at M2. Initially felt to be high risk for TNK given recent surgery. Plan to transfer to [facility] for mechanical thrombectomy. However, patient could only be transported via ground d/t weather. Given delay, long discussion had between Dr. Alexander, stroke neurology, Hospital team at [facility] and ortho surgeon. Ultimately decided to administer TNK. This was given at 2230. Shortly thereafter, patient reportedly diaphoretic and concern for ST elevation in II, III, aVF on EKG. On arrival (more content not included)...[facility]10-03-2022 NoteHNO ID: [id number] Author: Roby Alexander MD Service: ? Author Type: Physician Type: Progress Notes Filed: 02/27/2022 6:34 PM Note Text: [facility] - Progress Note PATIENT NAME: MIRI CAI CSN: [id number] DATE OF : 1945 SEX/AGE: M/76 PATIENT TYPE: I HOSP SVC: ICU LOCATION: [id number] DATE OF SERVICE: 02/11/2022 TIME OF SERVICE: 03:00 PM CHIEF COMPLAINT: Day 4 status post left hemispheric thrombectomy. HISTORY OF PRESENT ILLNESS: I see Mr. Cai sitting comfortably in neuro- intensive care unit bed. He is alert, cooperative, and pleasant. He recuperated his speech. No receptive aphasia. His speech is audible, however, I believe most likely due to the fact that he does not want to talk much, but he is understanding and verbalizing very nicely. He can move his right lower extremity. The right upper extremity is still very weak and the recent MRI of the brain dated February 09, 2022, demonstrated a small subcortical stroke in the left hemisphere involving predominantly the putamen and adjacent cortex. Long-term prognosis, I believe is excellent. The patient needs to stay on aspirin and Plavix for next 6 months. I will be seeing him in 3 months in office visit to assess him clinically after the thrombectomy. I appreciate neuro-intensive care unit help. I spent 40 minutes reviewing the patient's chart, managing his care, and consulting with him. More than 50% of my time spent in direct contact with the patient. Roby Alexander MD Neurosurgery FA:ezekiel /[phone] [facility]10-03-2022 NoteHNO ID: [id number] Author: Emma Farooq RN Service: Care Management Author Type: Registered Nurse Type: Care Mgt Progress Note Filed: 02/11/2022 9:51 AM Note Text: CARE MANAGEMENT PROGRESS NOTE SERVICE DATE: 02/11/2022 SERVICE TIME: 942 LOS: 4 days Needs Prior to Discharge: To Be Determined;OT/PT Evaluation;Discharge Transportation;Accepting Facility;Bed Availability Chart reviewed, patient remains in NSICU on pressors at 45 mcg/min. PT is recommending Acute Rehab LOC. Received the following choices from patient's family. [facility], [facility] choice [facility] and third choice [facility]. Referrals sent to [facility] and [facility]. No insurance auth needed for Acute Rehab, will need accepting facility and cot transportation. Will continue to follow. SIGNATURE: Emma Farooq RN PATIENT NAME: Miri Cai DATE: February 11, 2022 TIME: 9:43 AM PAGER/CONTACT #: [phone] [facility] Center [facility] 02-10-2022 NoteHNO ID: [id number] Author: Tisha Ashford APRN.CNP Service: Neurology ICU Author Type: Nurse Practitioner Type: Progress Notes Filed: 02/10/2022 12:53 PM Note Text: SERVICE DATE: 02/10/2022 SERVICE TIME: 12:52 PM NEURO ICU PROGRESS NOTE DATE OF ADMISSION: 02/07/2022 Subjective Hospital Course: 02/08: No acute overnight events. Neuro exam with minimal change. Able to get clear words out at times. Minimal movement to RLE. None to RUE spontaneously. Aflutter, rate elevated transiently overnight requiring cardizem gtt briefly. Post NIL CT unremarkable. No evidence of hemorrhage. Events Since Last Note: See hospital course Objective BP (!) 102/47 Pulse 79 Temp 36.2 ?C (97.1 ?F) (Temporal) Resp 18 Ht 179.1 cm (5' 10.5) Wt 88.1 kg (194 lb 3.6 oz) SpO2 97% BMI 27.47 kg/m? Weight change: Neuro: Awake, AANDOx1. PERRL, 3mm brisk. EOMs intact. Right facial droop. RUE: 25/ RLE: 07/14. LUE: RYDER (immobilized d/t shoulder replacement). LLE: 08/14. CV: S1 S2 irregular. A. Flutter on tele. Pulm: CTA on RA. GI/: Soft, non-distended, non-tender. Bowel sounds present. Skin/Extremities: Edema- No Peripheral pulses- Present all extremities Wounds/Drsgs- No Breakdown- No Diagnostic tests reviewed for today's visit: Most recent labs and imaging results. Lines, Drains, and Airways Line Duration Arterial Line/Sheath 02/08/22 1544 Right Brachial 1 day Central Line Triple Lumen 02/08/22 1537 Right Neck 1 day Drain Duration External Collection Device 02/07/22 0315 3 days ICU Checklist Last Documented/Reviewed time: 02/10/2022 12:44 PM A= Assess, Prevent, Manage Pain Pain adequately controlled?: Yes C= Choice of Sedation and Analgesia RASS at Goal?: Yes B= Both Spontaneous Awakening and Breathing Trials Ventilator: None D= Delirium: Assess, Prevent and Manage ICU Delirium Status: CAM Negative - no action required Sleep adequate?: Yes Restraint Status: None E= Early Mobility/Excercise ICU Mobility: ICU Mobility-Pt Has Been Out of Bed: PT Consult - Specify F= Family Engagement and Empowerment ICU plan of care visit at bedside in last 24 hours: Yes, Provider, RN, Patient/ designee, Patient/ Family updated ICU Disposition: ICU Disposition- Is Patient Clinically Ready to Transfer to [facility] or SDU?: No Discharge Planning: To be determined Prevention: Line Status: Central multi-lumen catheter, Arterial line Arterial Line Status: Able to remove today Central Line Status: Reason to maintain Central Line Reason to Maintain: Vasoactive meds Parks Status: None Pressure Injury Status: None GI/Stress Ulcer Prophylaxis: None - not required Nutrition is at Goal: Advancing to goal VTE Prophylaxis: Chemoprophylaxis: Low Molecular Wt Heparin Mechanical Prophylaxis: Knee high SCD PERSONAL INVOLVEMENT IN CARE: Reviewing initiation, responses and adjustments to therapies, coordination of care, and updating family with Staff Physician, Dr. Pal. Assessment AND Plan 76 year old M with past medical history significant for HTN, DM type 2, pAF on Eliquis (held for surgery), who presents as transfer from [place] ED with findings of acute L MCA stroke. Patient was admitted to [facility] after undergoing elective left shoulder replacement yesterday AM (02/06). Post operatively, he was in his usual state of health aside from decreased ROM to LUE. LKW of 2100. At 2130, RN found patient to have sudden onset Right upper and lower extremity weakness, facial droop and aphasia. Stroke evaluation performed and patient found to have early ischemic changes to L insula, ASPECT score of 9. CTA demonstrating proximal L cervical ICA occlusion w/ distal reconstitution, then re-occlusion at M2. Initially felt to be high risk for TNK given recent surgery. Plan to transfer to [facility] for mechanical thrombectomy. However, patient could only be transported via ground d/t weather. Given delay, long discussion had between Dr. Alexander, stroke neurology, Hospital team at [facility] and ortho surgeon. Ultimately decided to administer TNK. This was given at 2230. Shortly thereafter, patient reportedly diaphoretic and concern for ST elevation in II, III, aVF on EKG. On arrival, patient is awake and alert. He is globally aphasic. 0/5 strength on the LUE/LLE, + facial droop, No visual deficit. Does cross midline. Some L neglect. NIHSS score of 18. Tachycardic on tele. Aflutter HR 120s-130s. EKG here with IRBBB (noted on previous EKG), new what appears to be ST elevation w/ TWI over Q waves most prominent in III, aVF suggestive of possible late PA. Patient appears comfortable and in no distress. Taken to NIL for thrombectomy. NSICU admit post NIL for continued stroke management. Neurology * Acute ischemic left MCA stroke (HCC) Acute L MCA stroke 2/2 left cerv (more content not included)...[facility]10-02-2022 History of Past illness Narrative* Problem Noted Date Resolved Date Urinary retention 02/10/2022 02/19/2022 Last Assessment & Plan: PLAN: - Flomax - Straight cath per protocol Acute ischemic left MCA stroke 02/07/2022 1 Last Assessment & Plan: Acute L MCA stroke 2/2 left cervical ICA and MCA occlusion Cardio embolic in setting of being off OAC d/t recent surgery TNK administration at 2230 02/06 S/p NIL for L ICA/MCA stenting 02/07 C/b re-occlusion of LICA stent and back to NIL 02/07 w/ TICI 2c LDL 83 HbA1c 6.4% Echocardiogram- EF 71%. No significant abnormalities. No evidence of thrombus. PLAN: - Neuro vascular checks post TNK and NIL intervention - MAP < 65 - Tele - DAPT: ASA 81 mg daily + Plavix 75 mg daily - Secondary Prevention: Atorvastatin 80 mg HS - MRI - DVT ppx: Lovenox - PT/OT/Speech - Stroke education - Dr. Alexander on board - Off phenylephrine, when off for 24 hours DC CVC documented as of this encounter (statuses as of 03/01/2022) [facility]10-02-2022 History of Past illness Narrative* Problem Noted Date Resolved Date Urinary retention 02/10/2022 02/19/2022 Last Assessment & Plan: PLAN: - Flomax - Straight cath per protocol Acute ischemic left MCA stroke 02/07/2022 1 Last Assessment & Plan: Acute L MCA stroke 2/2 left cervical ICA and MCA occlusion Cardio embolic in setting of being off OAC d/t recent surgery TNK administration at 2230 9/ S/p NIL for L ICA/MCA stenting 02/07 C/b re-occlusion of LICA stent and back to NIL 02/07 w/ TICI 2c LDL 83 HbA1c 6.4% Echocardiogram- EF 71%. No significant abnormalities. No evidence of thrombus. PLAN: - Neuro vascular checks post TNK and NIL intervention - MAP < 65 - Tele - DAPT: ASA 81 mg daily + Plavix 75 mg daily - Secondary Prevention: Atorvastatin 80 mg HS - MRI - DVT ppx: Lovenox - PT/OT/Speech - Stroke education - Dr. Alexander on board - Off phenylephrine, when off for 24 hours DC CVC documented as of this encounter (statuses as of 03/26/2022) [facility]10-02-2022 History of Past illness Narrative* Problem Noted Date Resolved Date Urinary retention 02/10/2022 02/19/2022 Last Assessment & Plan: PLAN: - Flomax - Straight cath per protocol Acute ischemic left MCA stroke 02/07/2022 1 Last Assessment & Plan: Acute L MCA stroke 2/2 left cervical ICA and MCA occlusion Cardio embolic in setting of being off OAC d/t recent surgery TNK administration at 2230 9/28 S/p NIL for L ICA/MCA stenting 02/07 C/b re-occlusion of LICA stent and back to NIL 02/07 w/ TICI 2c LDL 83 HbA1c 6.4% Echocardiogram- EF 71%. No significant abnormalities. No evidence of thrombus. PLAN: - Neuro vascular checks post TNK and NIL intervention - MAP < 65 - Tele - DAPT: ASA 81 mg daily + Plavix 75 mg daily - Secondary Prevention: Atorvastatin 80 mg HS - MRI - DVT ppx: Lovenox - PT/OT/Speech - Stroke education - Dr. Alexander on board - Off phenylephrine, when off for 24 hours DC CVC documented as of this encounter (statuses as of 05/17/2022) [facility]10-02-2022 History of Past illness Narrative* Problem Noted Date Resolved Date Urinary retention 02/10/2022 02/19/2022 Last Assessment & Plan: PLAN: - Flomax - Straight cath per protocol Acute ischemic left MCA stroke 02/07/2022 1 Last Assessment & Plan: Acute L MCA stroke 2/2 left cervical ICA and MCA occlusion Cardio embolic in setting of being off OAC d/t recent surgery TNK administration at 2230 9/28 S/p NIL for L ICA/MCA stenting 02/07 C/b re-occlusion of LICA stent and back to NIL 02/07 w/ TICI 2c LDL 83 HbA1c 6.4% Echocardiogram- EF 71%. No significant abnormalities. No evidence of thrombus. PLAN: - Neuro vascular checks post TNK and NIL intervention - MAP < 65 - Tele - DAPT: ASA 81 mg daily + Plavix 75 mg daily - Secondary Prevention: Atorvastatin 80 mg HS - MRI - DVT ppx: Lovenox - PT/OT/Speech - Stroke education - Dr. Alexander on board - Off phenylephrine, when off for 24 hours DC CVC documented as of this encounter (statuses as of 05/22/2022) [facility]10-02-2022 History of Past illness Narrative* Problem Noted Date Diagnosed Date Resolved Date Urinary Retention 02/10/2022 02/19/2022 Last Assessment & Plan: PLAN: - Flomax - Straight cath per protocol Acute Ischemic Left MCA Stroke 02/07/2022 02/19/2022 Last Assessment & Plan: Acute L MCA stroke 2/2 left cervical ICA and MCA occlusion Cardio embolic in setting of being off OAC d/t recent surgery TNK administration at 2230 9/28 S/p NIL for L ICA/MCA stenting 02/07 C/b re-occlusion of LICA stent and back to NIL 02/07 w/ TICI 2c LDL 83 HbA1c 6.4% Echocardiogram- EF 71%. No significant abnormalities. No evidence of thrombus. PLAN: - Neuro vascular checks post TNK and NIL intervention - MAP < 65 - Tele - DAPT: ASA 81 mg daily + Plavix 75 mg daily - Secondary Prevention: Atorvastatin 80 mg HS - MRI - DVT ppx: Lovenox - PT/OT/Speech - Stroke education - Dr. Alexander on board - Off phenylephrine, when off for 24 hours DC CVC documented as of this encounter (statuses as of 01/30/2023) [facility]10-01-2022 NoteHNO ID: [id number] Author: Tisha Ashford APRN.SHORE MAN Service: Neurology ICU Author Type: Nurse Practitioner Type: Progress Notes Filed: 02/09/2022 10:51 AM Note Text: SERVICE DATE: 02/09/2022 SERVICE TIME: 10:51 AM NEURO ICU PROGRESS NOTE DATE OF ADMISSION: 02/07/2022 Subjective Hospital Course: 02/08: No acute overnight events. Neuro exam with minimal change. Able to get clear words out at times. Minimal movement to RLE. None to RUE spontaneously. Aflutter, rate elevated transiently overnight requiring cardizem gtt briefly. Post NIL CT unremarkable. No evidence of hemorrhage. Events Since Last Note: See hospital course Objective BP 155/70 Pulse 88 Temp 36.1 ?C (96.9 ?F) (Temporal) Resp 10 Ht 179.1 cm (5' 10.5) Wt 83.8 kg (184 lb 11.9 oz) SpO2 97% BMI 26.13 kg/m? Weight change: Neuro: Awake, AANDOx1. PERRL, 3mm brisk. EOMs intact. Right facial droop. RUE/RLE: 3 (-)/5. LUE: RYDER (immobilized d/t shoulder replacement). LLE: 4/4. CV: S1 S2 irregular. A. Flutter on tele. Pulm: CTA on RA. GI/: Soft, non-distended, non-tender. Bowel sounds present. Skin/Extremities: Edema- No Peripheral pulses- Present all extremities Wounds/Drsgs- No Breakdown- No Diagnostic tests reviewed for today's visit: Most recent labs and imaging results. Lines, Drains, and Airways Line Duration Arterial Line/Sheath 02/08/22 1544 Right Brachial <1 day Central Line Triple Lumen 02/08/22 1537 Right Neck <1 day Drain Duration External Collection Device 02/07/22 0315 2 days ICU Checklist Last Documented/Reviewed time: 02/09/2022 7:15 AM A= Assess, Prevent, Manage Pain Pain adequately controlled?: Yes C= Choice of Sedation and Analgesia RASS at Goal?: Yes B= Both Spontaneous Awakening and Breathing Trials Ventilator: None D= Delirium: Assess, Prevent and Manage ICU Delirium Status: CAM Negative - no action required Sleep adequate?: Yes Restraint Status: None E= Early Mobility/Excercise ICU Mobility: ICU Mobility-Pt Has Been Out of Bed: PT Consult - Specify F= Family Engagement and Empowerment ICU plan of care visit at bedside in last 24 hours: Yes, Provider, RN, Patient/ designee, Patient/ Family updated ICU Disposition: ICU Disposition- Is Patient Clinically Ready to Transfer to [facility] or SDU?: No Discharge Planning: To be determined Prevention: Line Status: Arterial line Arterial Line Status: Able to remove today Parks Status: None Pressure Injury Status: None GI/Stress Ulcer Prophylaxis: None - not required Nutrition is at Goal: Advancing to goal VTE Prophylaxis: Chemoprophylaxis: Low Molecular Wt Heparin Mechanical Prophylaxis: Knee high SCD PERSONAL INVOLVEMENT IN CARE: Reviewing initiation, responses and adjustments to therapies, coordination of care, and updating family with Staff Physician, Dr. Pal. Assessment AND Plan Neurology * Acute ischemic left MCA stroke (HCC) Acute L MCA stroke 2/2 left cervical ICA and MCA occlusion Cardio embolic in setting of being off OAC d/t recent surgery TNK administration at 2230 02/06 S/p NIL for L ICA/MCA stenting 02/07 C/b re-occlusion of LICA stent and back to NIL 02/07 w/ TICI 2c LDL 83 HbA1c 6.4% Echocardiogram- EF 71%. No significant abnormalities. No evidence of thrombus. PLAN: - Neuro vascular checks post TNK and NIL intervention - SBP goal 110-160 - Wean phenylephrine - Tele - DAPT: ASA 81 mg daily + Plavix 75 mg daily - Secondary Prevention: Atorvastatin 80 mg HS - MRI - DVT ppx: Lovenox - PT/OT/Speech - Stroke education - Dr. Alexander on board Cardiovascular HLD (hyperlipidemia) LDL 83 PLAN: - Atorvastatin 80 mg HS HTN (hypertension) PLAN: - Currently on phenylephrine for SBP 110-160 Atrial flutter with rapid ventricular response (HCC) Chronic Aflutter, RVR w/ rate 120s-130s on arrival On [facility] outpatient, however, this was held 3 days prior d/t surgery Home Medications: Metoprolol ER 50 mg daily Echo - EF 71%. Otherwise unrevealing PLAN: - Cardiology on board. 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 Occlusion of middle cerebral artery, left See Acute Ischemic L MCA Stroke. Medication and Non-Pharmacologic VTE Prophylaxis/Anticoagulants Anticoagulant AND Antiplatelet Medications (From admission, onward) Start Dose Route Frequency Last Action Ordered Stop 02/08/22 (more content not included)...[facility]09-30-2022 NoteHNO ID: [id number] Author: Roby Alexander MD Service: ? Author Type: Physician Type: Progress Notes Filed: 02/08/2022 4:46 PM Note Text: Progress Note dictated.[facility]09-30-2022 NoteHNO ID: [id number] Author: Emma Farooq RN Service: Care Management Author Type: Registered Nurse Type: Care Mgt Progress Note Filed: 02/08/2022 3:56 PM Note Text: CARE MANAGEMENT PROGRESS NOTE SERVICE DATE: 02/08/2022 SERVICE TIME: 1554 LOS: 1 day Needs Prior to Discharge: To Be Determined;Accepting Facility;Facility or Agency Choices;Discharge Transportation [place] of Choice Given: Yes Level of Care Discussed: Inpatient Rehab Facility Financial Disclosure Provided: Yes Financial Disclosure Comments: CC Affiliation Provider List: Rehab Facility Provider list within the patient's requested geographic area shared with the patient/family: Yes within: 25 miles of zip code: [address] (and [phone]) Quality and resource use metrics shared with the patient that are relevant to the patient's goals of care and treatment preferences:: Yes Chart reviewed, PT is recommending Acute Rehab LOC. Provided patient with FOC list and emailed copy to patient's niece and nephew ( Franchesca and Christopher ). Provided facilities near patient's home and his sisters in [place]. Will need FOC and available bed prior to d/c. Will continue to follow. SIGNATURE: Emma Farooq RN PATIENT NAME: Miri Cai DATE: February 08, 2022 TIME: 3:54 PM PAGER/CONTACT #: [phone] NoteHNO ID: [id number] Author: Jose Alfredo Espinosa MD Service: Neurology ICU Author Type: Resident Type: Procedures Filed: 02/08/2022 2:00 PM Note Text: Attestation signed by Dora Yeboah MD at 02/08/2022 2:26 PM NICU STAFF I personally supervised this procedure on Miri Cai. I was present for the timeout and throughout the critical portion of the procedure. Dora Yeboah M.D Staff Home Assessment Nurse Pager [phone] Date : February 08, 2022 BEDSIDE PROCEDURE NOTE ART LINE/SHEATH Procedure Date/Start Time: 02/08/2022 1:59 PM Performed by: Jose Alfredo Espinosa MD Authorized by: Dora Yeboah MD This procedure has been performed in part by a resident/fellow under attending's direction Informed Consent Consent Obtained: Written Yale Protocol A moment to CARE was completed. SIGN IN Personnel directly involved with the procedure wore the appropriate PPE. Special Equipment: Yes Patient/Surrogate Stated/Verified: Date of , Patient name, Relevant allergies and Intended procedure TIME OUT Intended patient and procedure match the source document(s). Consent documented and matches the intended procedure. Relevant labs, photos, and/or imaging studies have been reviewed. Correct side/site marked and visible. No medications required for procedure. No fire risk assessment and interventions applicable. No implant(s) inserted. Pre-Procedure Details: The area was prepped with chlorhexidine (Chloroprep) and allowed to dry. A sterile partial body drape was applied following the usual aseptic technique. Medications: N/A Procedure Details: Indication: Monitoring of vital bodily functions Arterial Line Type: arterial line Site: right axillary Axillary Confirmation: Blood return, bright red pulsatile blood, ultrasound and transduced Technique: Modified Seldinger Pulsatile blood flow exited the catheter. Arterial waveform was noted on the monitor when the catheter was transduced. Securement/Dressing: Sterile sutures and sterile, transparent, occlusive dressing Number of attempts: 2 Successful Placement: Yes Post-procedure Details: Patient tolerated the procedure well with no immediate complications Estimated Blood Loss: Scant Specimens Sent: none SIGN OUT No specimen collected. All instruments, equipment, possible retained foreign bodies accounted for. Post-procedure follow-up management communicated and Plan of Care Visit completed when applicable SIGNATURE: Jose Alfredo Espinosa MD PATIENT NAME: Miri Cai DATE: February 08, 2022 TIME: 1:[address] [place], [place] [address]-30-2022 NoteHNO ID: [id number] Author: Max Nazario APRN.SHORE MAN Service: Neurology ICU Author Type: Nurse Practitioner Type: Procedures Filed: 02/08/2022 2:00 PM Note Text: BEDSIDE PROCEDURE NOTE CENTRAL LINE INSERTION Date/Start Time: 02/08/2022 3:30 PM Performed by: Max Nazario APRN.JENNIFER Authorized by: Max Nazario APRN.JENNIFER Informed Consent Consent Obtained: Written Yale Protocol A moment to CARE was completed. SIGN IN Personnel directly involved with the procedure wore the appropriate PPE. Special Equipment: Yes Patient/Surrogate Stated/Verified: Patient name, Date of , Relevant allergies and Intended procedure TIME OUT Intended patient and procedure match the source document(s). Consent documented and matches the intended procedure. Relevant labs, photos, and/or imaging studies have been reviewed. Correct side/site marked and visible. Medications required for procedure verified. No fire risk assessment and interventions applicable. No implant(s) inserted. Pre-procedure details: The area was prepped with chlorhexidine (Chloroprep) and allowed to dry. A sterile full body drape was applied following the usual aseptic technique. [facility] Central Line Insertion Checklist, attached to the Central Line- Associated Bloodstream Infection Prevention policy utilized: Yes Medications: Analgesia (see MAR): Fentanyl Local Anesthesia (see MAR): Lidocaine 1% Procedure details: Indication: Vasoactive medication and venous access Patient Position: Trendelenburg Site: Right internal jugular vein The catheter was secured in place at 16 cm Securement: Line sutured and occlusive dressing applied Assessment: Blood return through all ports and free fluid flow All catheters, needles, and wires were accounted for and intact Number of Attempts: 1 Successful Placement: yes Post-procedure Details: Patient tolerated the procedure well with no immediate complications Estimated Blood Loss: Scant Specimens Sent: none SIGN OUT No specimen collected. All instruments, equipment, possible retained foreign bodies accounted for. Post-procedure follow-up management communicated and Plan of Care Visit completed when applicable SIGNATURE: Mxa Nazario APRN.CNP PATIENT NAME: Miri Cai DATE: February 08, 2022 TIME: 1:[address] [place], [place] [address]-30-2022 NoteHNO ID: [id number] Author: Hubert Salgado RPh Service: Pharmacy Author Type: Pharmacist Type: Plan of Care Filed: 02/18/2022 9:20 AM Note Text: PHARMACY MEDICATION REVIEW Patient Name: Miri Cai : 1945 The following medications were updated within the SPECIMEN ACCESSIONER medication list: Medications ADDED to SPECIMEN ACCESSIONER medication list na Medications CHANGED on SPECIMEN ACCESSIONER medication list na Medications REMOVED from SPECIMEN ACCESSIONER medication list MULTIVITAMIN ORAL OTHER Yes Yes Saccharomyces boulardii (PROBIOTIC, S.BOULARDII,) 250 mg capsule OTHER Yes Yes THYROID ORAL OTHER Yes Yes cartilage/collagen/bor/hyalur (JOINT HEALTH ORAL) OTHER Yes Yes coenzyme [id number] E (HEALTHY HEART FORMULA ORAL) OTHER Yes Yes homeopathic drugs (CIRCULATION ORAL) OTHER Yes Yes magnesium carb,citrate,oxide (MAGNESIUM COMPLEX ORAL) OTHER Yes Yes mv-min/FA/D3/om-3/dha/epa/fish (ADULT MULTI PLUS OMEGA-3 ORAL) OTHER Yes Yes saw/vit E/sod yael/lyc/beta/pyg (PROSTATE HEALTH ORAL) OTHER Yes Yes vit A/C/E ac/ZnOx/cupric oxide (EYE VITAMIN AND MINERALS ORAL) Yes Yes [facility] 02/06/2022 reported medications Additional comments: Al medication information came from 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) and [employer] e-script [facility]. A copy of the medication list was placed into the physical chart for review if needed. There are 13 supplements/homeopathic entries on the SPECIMEN ACCESSIONER list. The medications filled with [facility] are Eliquis and Metoprolol. I have added the supplements to the SPECIMEN ACCESSIONER list (see above). Also [facility] reports Metoprolol Succinate 25mg was dc'd on 01/18/2022. Pt. takes Metoprolol Succinate 50mg daily. Required follow up for nursing: Medication History completed by Historian. No nursing follow up required. The below information represents the best possible medication history: Yes Medication history completed by: Middle [employer] Guidance Counselor: Javed Valentine (Offshore Wind Turbine Technician) Source of history: [facility] review of medications and [employer] Medication nonadherence identified: Unable to assess Reconciliation completed: Yes Completed by: Hubert Salgado (Pharmacist)] All SPECIMEN ACCESSIONER medications addressed by LIP Patient interested in Bedside Delivery Services or using CC OP Pharmacy at discharge? Unable to assess Preferred outpatient pharmacy: [id number] [place] [address] - [address] [phone] [id number] Allergies: No Known Allergies Prior to Admission Medications Prescriptions Last Dose Informant Patient Reported? Taking? Ascorbic Acid 1,000 mg TbER OTHER Yes Yes Sig: Take 1 tablet by mouth twice daily. Cholesterol Control,High AND Low soln OTHER Yes Yes Si capsule once daily. ELIQUIS 5 mg tab(s) OTHER Yes Yes Sig: Take 5 mg by mouth twice daily. MULTIVITAMIN ORAL OTHER Yes Yes Sig: Take by mouth as directed. Saccharomyces boulardii (PROBIOTIC, S.BOULARDII,) 250 mg capsule OTHER Yes Yes Sig: Take 250 mg by mouth once daily. THYROID ORAL OTHER Yes Yes Sig: Take 1 capsule by mouth twice daily. Thyroid Support cartilage/collagen/bor/hyalur (JOINT HEALTH ORAL) OTHER Yes Yes Sig: Take 1 capsule by mouth twice daily. Beneflex Plus cholecalciferol (VITAMIN D3) 1,000 unit tab tablet OTHER Yes Yes Sig: Take 1,000 Units by mouth twice daily. coenzyme [id number]-[id number]-[id number] E (HEALTHY HEART FORMULA ORAL) OTHER Yes Yes Sig: Take 3 capsules by mouth twice daily. Elation Reservatrol homeopathic drugs (CIRCULATION ORAL) OTHER Yes Yes Sig: Take 1 capsule by mouth once daily. Fermented beet/tracy magnesium carb,citrate,oxide (MAGNESIUM COMPLEX ORAL) OTHER Yes Yes Sig: Take 2 capsules by mouth twice daily. metoprolol succinate ER (TOPROL XL) 50 mg 24 hr tablet OTHER Yes Yes Sig: Take 50 mg by mouth. mv-min/FA/D3/om-3/dha/epa/fish (ADULT MULTI PLUS OMEGA-3 ORAL) OTHER Yes Yes Sig: Take 1 capsule by mouth once daily. omega Q Plus saw/vit E/sod yael/lyc/beta/pyg (PROSTATE HEALTH ORAL) OTHER Yes Yes Sig: Take 1 capsule by mouth twice daily. Super Healthy vit A/C/E ac/ZnOx/cupric oxide (EYE VITAMIN AND MINERALS ORAL) OTHER Yes Yes Sig: Take 1 capsule by mouth once daily. [facility] Facility-Administered Medications: None Javed Valentine (Offshore Wind Turbine Technician) phone [phone] 02/08/2022[facility]09-30-2022 NoteHNO ID: [id number] Author: Dora Yeboah MD Service: Neurology ICU Author Type: Physician Type: Progress Notes Filed: 02/08/2022 12:28 PM Note Text: THE NEURO ICU MANAGEMENT OF THIS PATIENT WAS DISCUSSED WITH THE NIL and stroke TEAM I have reviewed the progress note obtained and documented by the advanced practice provider . I have personally seen and examined the patient and discussed their management with the YI. I reviewed the YI note and agree with the documented findings and plan of care. I have repeated the examination and confirm the findings except as documented. 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 * ==== STAFF COORDINATION OF CRITICAL CARE [facility] [place] Staff Physician note of personal involvement in Care The patient is critically ill because of imminent risk of acute brain damage and stroke and continues to require intensive support and observation. This patient has a high probability of sudden, clinically significant deterioration, which requires the highest level of physician preparedness to intervene urgently. I managed/supervized life or organ supporting interventions that required frequent physician assessment. I devoted my full attention to the direct care of this patient for the amount of time indicated below. Time I spent with family or surrogate(s) is included only if the patient was incapable of providing the necessary information or participating in medical decision making. Time devoted to teaching or to any procedures I billed separately is not included. CRITICAL CARE: I personally spent - minutes of critical care time involved in the care of this patient. ==== PLAN, IMPRESSION AND ACTION(S) TAKEN Awake, alert, aphasic, right side plegic No major improvement post intervention Adding vasopressors SBP goal 130-160 Avoid hypotension CV line placement A line placement Lovenox for VTE prophylaxis DAPT Repeat carotid US ASA_ FELIX panel pending Please see the documented [id number] plan in the updated problem list. Plan of care discussed with: Provider, RN, Patient and Family/Significant Other: Family . Dora Yeboah MD Staff, Neurointensive Care [facility] [place] Date of Service: 02/08/2022 Time of Service: 12:16 PM This is an electronically created document. If printed, please do not remove from the chart or modify printed copy.[facility]09-30-2022 NoteHNO ID: [id number] Author: Roby Alexander MD Service: ? Author Type: Physician Type: Progress Notes Filed: 02/27/2022 6:34 PM Note Text: [facility] [place] Note PATIENT NAME: MIRI CAI CSN: [id number] DATE OF : 1945 SEX/AGE: M/76 PATIENT TYPE: I HOSP SVC: ICU LOCATION: DATE OF SERVICE: 02/07/2022 TIME OF SERVICE: 12:00 PM CHIEF COMPLAINT: 24 hours status post left internal carotid/MCA thrombectomy. INTERIM HISTORY: I see Mr. Cai is sitting comfortably in his bed. He has significantly improved following the thrombectomy. His NIH stroke scale now is 8. He can wiggle the toes in his right lower extremity, cannot move his right upper extremity. However, he can state where he is and his name. I think we will order ultrasound to assess his carotid stent, and we will follow up on the patient. I spent 30 minutes reviewing the patient's chart, managing his care, and examining him. More than 50% of my time was spent in direct contact with the patient. Roby Alexander MD Neurosurgery FA:modl /[phone] Light Inland Hospital09-30-2022 NoteHNO ID: [id number] Author: Roby Alexander MD Service: ? Author Type: Physician Type: Progress Notes Filed: 02/27/2022 6:34 PM Note Text: [facility] - Progress Note PATIENT NAME: MIRI CAI CSN: [id number] DATE OF : 1945 SEX/AGE: M/76 PATIENT TYPE: I HOSP SVC: ICU LOCATION: DATE OF SERVICE: 02/08/2022 TIME OF SERVICE: 04:30 PM CHIEF COMPLAINT: 48 hours status post left ICA and MCA thrombectomy. INTERIM HISTORY: I see Mr. Cai sitting comfortably in his bed with his nurse helping him. He has significantly improved since yesterday, where we had to retake him back to the angio suite after clinical deterioration and ultrasound confirming occlusion of the left internal carotid artery. In angio suite confirmed occlusion of the internal carotid artery. He underwent revascularization procedure of the internal carotid artery and thrombectomy of the left middle cerebral artery and now I am seeing the patient 24 hours status post reintervention. I am happy to report the patient is doing remarkably better. He can move his right upper and lower extremity, still weak. However, he is oriented to time and space. He has a mild degree of expressive aphasia. He had a followup CAT scan last night at around 10:30 p.m. demonstrating no evidence of cortical stroke. There is a minimal contrast staining in the left putamen of no clinical consequences. The patient is staying on aspirin and Plavix for his carotid stent. I am very happy with his progress. We will keep eye on the patient. I spent 30 minutes reviewing the patient's chart, managing his care, and examining him. More than 50% of my time was spent in direct contact with the patient. Roby Alexander MD Neurosurgery FA:iral /[phone] [facility] Center [facility]09-30-2022 NoteHNO ID: [id number] Author: Cleo Claire PA-C Service: Neurology ICU Author Type: Physician Wire Coating Machine Operator Type: Progress Notes Filed: 02/08/2022 5:53 AM Note Text: SERVICE DATE: 02/08/2022 SERVICE TIME: 5:52 AM NEURO ICU PROGRESS NOTE DATE OF ADMISSION: 02/07/2022 Subjective Hospital Course: 02/08: No acute overnight events. Neuro exam with minimal change. Able to get clear words out at times. Minimal movement to RLE. None to RUE spontaneously. Aflutter, rate elevated transiently overnight requiring cardizem gtt briefly. Post NIL CT unremarkable. No evidence of hemorrhage. Objective BP 103/65 Pulse 89 Temp 36.8 ?C (98.2 ?F) (Temporal) Resp 18 Ht 179.1 cm (5' 10.5) Wt 83.8 kg (184 lb 11.9 oz) SpO2 99% BMI 26.13 kg/m? Weight change: Neuro: Awake and alert. Globally aphasic, expressive >receptive. Able to get occasional clear words out at times. Following some simple commands. PERRL. EOMI. + R facial droop. Limited ROM LUE d/t recent shoulder surgery, in sling. LLE 5/5. RLE 1-2/5, RUE 1/5. Diminished sensation on RUE/RLE GCS: Eyes: 4. Spontaneous Verbal: 2: Incomprehensible Motor: 6: Obeys Motor commands Total: 12 CV: Aflutter, rate currently controlled in 80s on tele Pulm: CTA bilaterally, unlabored on RA GI/: Abdomen soft, non tender Skin/Extremities: Edema- No Peripheral pulses- Present all extremities Wounds/Drsgs- Yes Breakdown- No Diagnostic tests reviewed for today's visit: Most recent labs and imaging results.personally reviewed. Lines, Drains, and Airways Line Duration Peripheral 02/06/22 Admission to Hospital Short Right Forearm 20 Gauge 2 days Peripheral 02/06/22 Admission to Hospital Short Right Forearm 20 Gauge 2 days Drain Duration External Collection Device 02/07/22 0315 1 day ICU Checklist Last Documented/Reviewed time: 02/08/2022 5:36 AM A= Assess, Prevent, Manage Pain Pain adequately controlled?: Yes C= Choice of Sedation and Analgesia RASS at Goal?: Yes B= Both Spontaneous Awakening and Breathing Trials Ventilator: None D= Delirium: Assess, Prevent and Manage ICU Delirium Status: CAM Negative - no action required Sleep adequate?: Yes Restraint Status: None E= Early Mobility/Excercise ICU Mobility: ICU Mobility-Pt Has Been Out of Bed: PT Consult - Specify F= Family Engagement and Empowerment ICU plan of care visit at bedside in last 24 hours: Yes, Provider, RN, Patient/ designee, Patient/ Family updated ICU Disposition: ICU Disposition- Is Patient Clinically Ready to Transfer to [facility] or SDU?: No Discharge Planning: To be determined Prevention: Line Status: None Parks Status: None Pressure Injury Status: None GI/Stress Ulcer Prophylaxis: None - not required Nutrition is at Goal: Advancing to goal VTE Prophylaxis: Chemoprophylaxis: No chemoprophylaxis Mechanical Prophylaxis: Knee high SCD No Chemoprophylaxis Reason: Bleeding risk PERSONAL INVOLVEMENT IN CARE: Reviewing initiation, responses and adjustments to therapies, coordination of care, and updating family with Staff Physician, Dr. Rey. Assessment AND Plan Active Hospital Problems as of 02/08/2022 Noted - Resolved [facility] * (Principal) Acute ischemic left MCA stroke (HCC) 02/07/2022 - Present Unknown Current Assessment AND Plan Assessment: Acute L MCA stroke 2/2 left cervical ICA and MCA occlusion Cardio embolic in setting of being off OAC d/t recent surgery TNK administration at 2230 02/06 S/p NIL for L ICA/MCA stenting 02/07 Complicated by restenosis and back to NIL 02/07 late afternoon. PLAN: - Neuro vascular checks post TNK and NIL intervention - SBP goal <110 - Monitor tele. HR control w/ scheduled Lopressor and PRN cardizem - Fu post TNK CT stable without acute process or hemorrhage 02/07 PM - Continue DAPT - lipitor 80mg daily. LDL 83 - HbA1c 6.4% - Echocardiogram- EF 71%. No significant abnormalities. No evidence of thrombus. - MRI pending - Carotid US pending - Modified diet as per ST - PT/OT when appropriate - Dr. Alexander following Atrial flutter with rapid ventricular response (HCC) 02/07/2022 - Present Unknown Current Assessment AND Plan Assessment: Chronic Aflutter, currently RVR w/ rate 120s-130s on arrival On [facility] outpatient, however, this was held 3 days prior d/t surgery PLAN: - Echo - EF 71%. Otherwise unrevealing - Cardiology c/s appreciated. Rate control w/ bblocker. EKG changes present on arrival felt to be secondary to aflutter not ischemia HLD (hyperlipidemia) 02/07/2022 - Present Unknown Current Assessment AND Plan PLAN: - LDL 83 -Lipitor 80mg daily HTN (hypertension) 02/07/2022 - Present Unknown Current Assessment AND Plan PLAN: - Goal SBP <[address] Lencho [place] post NIL intervention - PRN antihypertensives Hx of atrial flutter (more content not included)...[facility] 02-07-2022 NoteHNO ID: [id number] Author: Cleo Claire PA-C Service: Neurology ICU Author Type: Physician Wire Coating Machine Operator Type: Plan of Care Filed: 02/07/2022 8:16 PM Note Text: NIL/NSICU Post Procedure Note Date of procedure: February 07, 2022 Indication for procedure: Lt hemispheric stroke, worsening exam today s/p stenting. Concern for reocclusion Procedure performed: Angioplasty/recanalization of Lt CCA/ICA stent Findings during procedure: Occlusion of Lt CCA/ICA stent Post procedure exam: Mental Status: Awake and alert. Mixed aphasia Expressive > Receptive. Starting to get occasional clear word out such as name. Following some simple commands. Cranial Nerves: PERRL. EOMI. Tracking examiner . + R facial droop. Motor: Limited ROM to LUE d/t recent surgery. 5/5 hand mine wirer. 5/5 LLE. RUE/RLE 1/5 Sensation: diminished light touch RUE/RLE . Pulses present: 2+ and equal bilaterally, distal LE Groin site: Groin site C/D/I Post procedure plan: Antiplatelet(s): DAPT Blood pressure goals: Tight BP control w/ SBP goal <110. Head of bed: Flat per post NIL protocol. Then elevate to 30 degrees IV Fluids: None Repeat CT brain at 10:00PM bedside nursing updated on plan. Spoke to patient sister Piero, updated on above procedure,findings and plan. She expressed her appreciation for her brother's care and all of the updates. She states she will be up to visit tomorrow. All questions answered. Cleo Claire PA-C February 07, 2022 7:00 [facility]09-29-2022 NoteHNO ID: [id number] Author: Roby Alexander MD Service: ? Author Type: Physician Type: Procedures Filed: 02/07/2022 6:30 PM Note Text: BRIEF OP/PROCEDURE NOTE NEURO INTERVENTIONAL PROCEDURE DATE: February 07, 2022 LOG ID: [id number] Surgery/Procedure Date: 02/07/2022 Incision/Procedure Start Time: 5:38 PM Incision Close/Procedure End Time: Anesthesia: Procedural Sedation PRIMARY PROCEDURALIST: liu DISTILLATION OPERATOR HELPER(S): Roby Alexander MD PROCEDURE: Arterial Access Date: 02/07/22 Arterial Access Time : 1738 First Pass (Device) Date: 02/07/22 First Pass (Device) Time: 1746 TICI Date: 02/07/22 TICI Time: 1809 TICI: (2c) Antegrade perfusion showing near complete recanalization (range 95-99%) , Indications: LT hemispheric stroke Access Site: Rt ROLL COVERER PRE-PROCEDURE DIAGNOSIS: stroke POST-PROCEDURE DIAGNOSIS: occlusion Lt CCA/ICA stent FINDINGS: occlusion Lt CCA/ICA stent ESTIMATED BLOOD LOSS: 20 ml COMPLICATIONS: None RADIATION DOSE: Exceeded 5 Gy - No SPECIMENS: Not Applicable SIGNATURE: Roby Alexander MD PATIENT NAME: Miri Cai DATE: February 07, 2022 TIME: 6:29 [facility]09-29-2022 NoteHNO ID: [id number] Author: ADAMS Sultana Service: Care Management Author Type: Screen Repairer Crusher Type: Care Mgt Progress Note Filed: 02/07/2022 1:13 PM Note Text: CARE MANAGEMENT PROGRESS NOTE SERVICE DATE: 02/07/2022 SERVICE TIME: 1:11 PM LOS: 0 days Stroke depression screen Pt has expressive aphasia and unable to participate in stroke depression screen at this time. SIGNATURE: ADAMS Sultana PATIENT NAME: Miri Cai DATE: February 07, 2022 TIME: 1:10 PM PAGER/CONTACT #: [phone] Medical Center [facility] 02-07-2022 NoteHNO ID: [id number] Author: Emma Farooq RN Service: Care Management Author Type: Registered Nurse Type: Care Mgt Initial Assessment Filed: 02/07/2022 12:52 PM Note Text: CARE MANAGEMENT: ASSESSMENT AND DISCHARGE PLAN SERVICE DATE: February 07, 2022 SERVICE TIME: 1250 PRIMARY CARE PHYSICIAN: JENELLE Maldonado, PA Primary Contact: Extended Emergency Contact Information Primary Emergency Contact: Piero Villeda Mobile Relation: Sister Secondary Emergency Contact: Christopher Villeda Mobile Relation: Brother ADMISSION STATUS: Inpatient Insurance Provider: MEDICARE A AND B NEEDS PRIOR TO DISCHARGE Needs Prior to Discharge: To Be Determined;OT/PT Evaluation;Discharge Prescriptions POTENTIAL TRANSITION PLANS To Be Determined;Rehab Facility Based on clinical judgement, Care Management will address the following needs: Medical;Social;Functional Patient's perception of need for this admission: CVA ADVANCE DIRECTIVES Current Advance Directive: None Rn Operating Room Attempted to Assist with AD Completion: Yes Action: Education Provided MS/BEHAVIOR Baseline Mental Status Prior to this Illness what was the patient's Baseline Mental Status?: Alert AND Oriented Prior to this illness, has anyone described the patient having any of the following behaviors?: Not Applicable Relationship of the informant to the patient:: Other: See Comment Name of Informant: : Piero Acevedo Sister READMISSION Last Discharge Date: N/A Is this Within the Past 30 days? From what level of care did patient present?: Home Last discharge within 30 days: No PATIENT SCREEN Patient/Workforce Development Specialist Stated Goals: To improve my functional status;To return home to life as it was;To have reduction in symptoms Under the care of a PCP?: Yes, External Provider Provider Name: Palak Kidd Last Known Visit: 01/30/22 Does the patient have transportation upon discharge?: (TBD) Use of any community resources?: No Does the patient have a stable and supportive living arrangement and home setting?: Yes Situation: Lives alone in a single level mobile home with 3-4 steps to enter Are there any potential risks or gaps identified by risk/functional/fall,etc. scores in the EMR?: Yes Situation: High risk for falls Any potential risks related to substance abuse and/or behavioral health?: No Based on clinical judgement, Care Management will address the following needs: Medical;Social;Functional CAREGIVER ASSESSMENT Caregiver is ready, willing and able to meet the patient's needs as recommended by the inter-professional team:: Other: See Comment (TBD) No behavioral/cognitive discharge barriers identified at this time. FREEDOM OF CHOICE EXPLAINED: Are you interested in bedside delivery of your medications? No Is Patient Psychosocially Complex?: Yes, refer to Social Work ASSESSMENT AND PLAN: Initial assessment completed with patient's sister Puneet via telephone. Pt. Lives alone in a single level mobile home with 3-4 steps to enter. + PCP, No DME, + RX coverage. Pt. Was never , no children. Pt. Was independent prior to admission. Will need PT OT consults prior to d/c. Pt. Will likely need acute Rehab LOC. Will continue to follow. SIGNATURE: Emma Farooq RN PATIENT NAME: Miri Cai DATE: February 07, 2022 TIME: 12:50 PM CONTACT #: [phone] Medical Center [facility]09-29-2022 NoteHNO ID: [id number] Author: Roby Alexander MD Service: ? Author Type: Physician Type: Progress Notes Filed: 02/08/2022 4:44 PM Note Text: Progress note [facility]09-29-2022 NoteHNO ID: [id number] Author: Cleo Claire PA-C Service: Neurology ICU Author Type: Physician Wire Coating Machine Operator Type: Plan of Care Filed: 02/07/2022 5:16 AM Note Text: NIL/NSICU Post Procedure Note Date of procedure: February 07, 2022 Indication for procedure: Left hemispheric stroke Procedure performed: Mechanical thrombectomy. Stenting of Lt ICA and two M2 branches Findings during procedure: Occlusion to cervical Lt ICA and to M2 branches Post procedure exam: Mental Status: Drowsy post anesthesia but does wake easily and is able to answer to name somewhat clearer that pre procedure . Still remains aphasic. Cranial Nerves: PERRL, visual mejia intact to confrontation, extraocular movements intact, and + Facial droop, + R neglect . Motor: 0/5 RUE/RLE, 5/5 distal LUE (Limited ROM d/t recent shoulder replacement) 5/5 LLE Sensation: diminished to RUE/RLE . Pulses present: 2+ and equal distal pulses bilaterally Groin site: C/D/I Post procedure plan: Antiplatelet(s): Loaded with 600mg of Plavix and ASA 81mg. Continue DAPT 02/08 Blood pressure goals: 100-120 Head of bed: 30 degrees IV Fluids: None ST eval. May need Cortrak placement PRN rate control for Aflutter RVR. Rate currently in 80s-90s Cleo Claire PA-C February 07, 2022 3:30[facility]09-29-2022 NoteHNO ID: [id number] Author: Roby Alexander MD Service: ? Author Type: Physician Type: Procedures Filed: 02/07/2022 2:48 AM Note Text: BRIEF OP/PROCEDURE NOTE NEURO INTERVENTIONAL PROCEDURE DATE: February 07, 2022 LOG ID: [id number] Surgery/Procedure Date: 02/06/2022 Incision/Procedure Start Time: 1:41 AM Incision Close/Procedure End Time: Anesthesia: General PRIMARY PROCEDURALIST: liu DISTILLATION OPERATOR HELPER(S): Roby Alexander MD PROCEDURE: Arterial Access Date: 02/07/22 Arterial Access Time : 0141 First Pass (Device) Date: 02/07/22 First Pass (Device) Time: 0200 TICI Date: 02/07/22 TICI Time: 0220 TICI: (3) Antegrade complete perfusion of the downstream ischemic territory , Indications: stroke Access Site: Rt ROLL COVERER PRE-PROCEDURE DIAGNOSIS: Lt hemispheric stroke POST-PROCEDURE DIAGNOSIS: the same . S/p stemting Lt ICA and two M2 branches FINDINGS: Occlusion cervical Lt ICA and two M2 branches ESTIMATED BLOOD LOSS: 20 ml COMPLICATIONS: None RADIATION DOSE: Exceeded 5 Gy - No SPECIMENS: Not Applicable SIGNATURE: Roby Alexander MD PATIENT NAME: Miri Cai DATE: February 07, 2022 TIME: 2:45 AMNorthern [facility] Inland Hospital09-29-2022 NoteHNO ID: [id number] Author: Jerome Ram APRN.PASTRY CHEF Service: Anesthesiology Author Type: Nurse Population Health Manager Type: Anesthesia Procedure Notes Filed: 02/07/2022 1:50 AM Note Text: ANESTHESIOLOGY PROCEDURE NOTE Airway General Information Procedure Start Time/Medication Administration: 02/07/2022 1:40 AM Procedure End Time: 02/07/2022 1:41 AM Patient location during procedure: OR Timeout Performed Pre-procedure: timeout performed Consent Obtained: Yes Patient identity confirmed: arm band Staffing PASTRY CHEF: Jerome Ram APRN.PASTRY CHEF Performed by: MARICHUY Indications and Patient Condition Indications for airway management: anesthesia Preoxygenated: yes anesthesia circuit Method: rapid sequence Cricoid Pressure: No Final Airway Details Final airway type: endotracheal airway Final Endotracheal Airway: ETT Cuffed: yes Successful intubation technique: video laryngoscopy Devices used: intubating stylet and Penny Blade size: #4 ETT size (mm): 7.5 Measured from: lips Measurement (cm): 21 Placement verified by: chest auscultation and capnometry Cormack-Lehane Classification: grade I - full view of glottis Number of attempts at approach: 1 Airway not difficult SIGNATURE: Jerome Ram APRN.CRNA PATIENT NAME: Miri Cai DATE: February 07, 2022 TIME: 1:49 AM CSN: [id number] Light Inland Hospital09-29-2022 NoteHNO ID: [id number] Author: Cleo Claire PA-C Service: Neurology ICU Author Type: Physician Wire Coating Machine Operator Type: Plan of Care Filed: 02/07/2022 1:39 AM Note Text: NIHSS score on arrival: S/p TNK administration at OSH @ 2230 Plan for emergent NIL intervention. NIL team at bedside. NIHSS: 1(a). Mental Status - LOC 0 = Alert and Attentive 1(b). LOC Questions 2 = Neither 1(c). LOC-Commands 1 = One command 2. Gaze 0 = Normal 3. Visual Mejia 0 = Full 4. Facial Weakness 2 = Complete, lower 5(a). Left Arm 0 = No drift 5(b). Right Arm 4 = No movement 6(a). Left Leg 0 = No drift 6(b). Right Leg 4 = No movement 7. Ataxia 0 = Absent 8. Sensory 1 = Mild to Moderate 9. Aphasia 2 = Severe 10. Dysarthria 1 = Mild to Moderate 11. Neglect 1 = One Sensory Modality NIHSS Total (0-42): 18 See HANDP to follow for additional recommendations. Cleo Claire PA-C #[id number] [facility] Care09-29-2022 NoteHNO ID: [id number] Author: Aquiles Guillaume MD Service: ? Author Type: Physician Type: Progress Notes Filed: 02/07/2022 7:49 AM Note Text: TELESTROKE DOCUMENTATION Name: Miri Cai : 1945 Referring Site: [place] Referring Provider: Dr Ortez Last Known Well (Date/Time): 02/06/222099 Neurologist Evaluation (Date/Time): 02/06/222214 Chief Complaint: L MCA syndrome HPI: 76 year old male,with PMHx significant for HTN, DM2, pAF (apixaban - being held for surgery) who was admitted today for L shoulder replacement and post op was in usual state of health other than decreased ROM LUE with LKW ~2100 who then developed sudden LMCA syndrome for which we were called. Remainder as below. Stroke Risk Factors Hypertension;Atrial fibrillation/flutter;Diabetes Mellitus Current Anticoagulant Not Applicable (apixaban was being held for shoulder surgery; last dose 02/02) BP: 138/81 NIHSS Telestroke Type - Patient location (ED or Inpatient): Inpatient - Telephone Site Reported NIHSS: (not fully calculated by team at bedside - R sided weakness, aphasia (improving a bit), R FD, sensory loss; likely teens/low 20s by description) Neurologist Performed Total Score: N/A Imaging CT Imaging reviewed, POSITIVE abnormal finding Abnormal Finding Details (Specify): early ischemia L insula () ASPECTS 9 along with hyperdense LMCA CTA Imaging reviewed, POSITIVE large vessel occlusion or severe stenosis seen Vessel Occlusion/Stenosis Details (Specify): prox cervical L ICA with some petrous reconstitution then terminus re-occlusion with some L MCA at M2s reconstitution Summary Suspected ACUTE ischemic stroke IV Thrombolysis Candidate Window: Last Known Well between 0-4.5 hours IV Thrombolysis Exclusion Criteria: Negative for ALL Exclusion Criteria IV Thrombolysis Additional Exclusion Criteria: Major surgery or serious trauma within the prior 14 days (L shoulder replacement just earlier today) IV Thrombolysis Recommended: Yes, I have explained the reason(s) why I believe the patient is having an acute stroke that would benefit from IV Thrombolysis. I have explained the risks, benefits, and alternatives with the patient and/or the family members. All questions answered. Other (Specify) Pt with major L shoulder replacement today; we did call pt's surgeon who stated if we needed to give, we could knowing increased risk of bleeding, but CCT air only 10-15min away and with L ICA-MCA occlusion, felt timing and risk of TNK high and going for thrombectomy at [facility] where he may also require DAPT load and possible L KATIUSKA, so TNK NOT administered -- SEE ADDENDUM BELOW given delay in transport for thrombectomy, discussion with ortho, warehouser, Dr Alexander - decision was made to give TNK Agreement to proceed with IV Thrombolysis treatment given by: Other (Specify) Dr Ortez, Lencho, ortho, and Dr Ortez discussed with family IV Thrombolysis Medication Given: Tenecteplase IV Thrombolysis Bolus (Date) 02/07/22 IV Thrombolysis Bolus (Time) 0030 LKW to IV Thrombolysis (minutes) 210 DOOR to IV Thrombolysis (minutes) Neuro eval to IV Thrombolysis (minutes) 135 Potential Candidate for Endovascular Therapy: Yes - NIHSS greater than or equal to 6 with POSITIVE large vessel occlusion Endovascular Treatment Plan: Neurology reviewed, Intervention is PLANNED Disposition/Billing (Physician is not in the same physical location as the patient) The patient will be transferred to another institution for further evaluation and management Reason for Transfer: Transfer for immediate intervention consideration (EVT consideration or advanced imaging) Planned Facility for Transfer: [facility] Telephone Only: Minutes spent reviewing pertinent diagnostic data and discussing patient care with the referring physician: 28 More than 50 percent of the encounter was spent on coordinating care of the patient during a telestroke. Thank you for contacting the [facility]. I appreciate the opportunity for allowing me to participate in Miri Cai's care. Please feel free to contact me and/or the [facility] at any time if you have any further questions or need additional assistance. Paradise Guillaume MD February 06, 2022 10:41 PM Addendum: After above, I was called back by CCT/HT at 2303 to let me know air transport had to be aborted d/t weather. Ground transport will be at least 2 hours. Myself, Carlito Alexander and Jinny re-conferenced, and decision was made to administer TNK given delayed time for transfer for thrombectomy. Once again confirmed with Dr. Ortez that surgeon felt benefit at this point outweighed risk as well (not highly vascular surgery). Rather than changing entire note above, this addendum made. Dr Ortez will order TNK now and administer. Timing delayed obviously given circumsta (more content not included)...[facility]09-28-2022 History of Present illness Narrative* Aquiles Guillaume MD - 02/06/2022 10:41 PM EDT TELESTROKE DOCUMENTATION Name: Miri Cai : 1945 Referring Site: [place] Referring Provider: Dr Ortez Last Known Well (Date/Time): 02/06/222099 Neurologist Evaluation (Date/Time): 02/06/22 1015 Chief Complaint: L MCA syndrome HPI: 76 year old male,with PMHx significant for HTN, DM2, pAF (apixaban - being held for surgery) who was admitted today for L shoulder replacement and post op was in usual state of health other thandecreased ROM LUE with LKW ~2100 who then developed sudden LMCA syndrome for which we were called. Remainder as below. Stroke Risk Factors Hypertension;Atrial fibrillation/flutter;Diabetes Mellitus Current Anticoagulant Not Applicable (apixaban was being held for shoulder surgery; last dose 02/02) BP: 138/81 NIHSS Telestroke Type - Patient location (ED or Inpatient): Inpatient - Telephone Site Reported NIHSS: (not fully calculated by team at bedside - R sided weakness, aphasia (improving a bit), R FD, sensory loss; likely teens/low 20s by description) Neurologist Performed Total Score: N/A Imaging CT Imaging reviewed, POSITIVE abnormal finding Abnormal Finding Details (Specify): early ischemia L insula () ASPECTS 9 along with hyperdenseLMCA CTA Imaging reviewed, POSITIVE large vessel occlusion or severe stenosis seen Vessel Occlusion/Stenosis Details (Specify): prox cervical L ICA with some petrous reconstitution then terminus re-occlusion with some L MCA at M2s reconstitution Summary Suspected ACUTE ischemic stroke IV Thrombolysis Candidate Window: Last Known Well between 0-4.5 hours IV Thrombolysis Exclusion Criteria: Negative for ALL Exclusion Criteria IV Thrombolysis Additional Exclusion Criteria: Major surgery or serious trauma within the prior 14 days (L shoulder replacement just earlier today) IV Thrombolysis Recommended: No Other (Specify) Pt with major L shoulder replacement today; we did call pt's surgeon who stated if we needed to give, we could knowing increased risk of bleeding, but CCT air only 10-15min away and with L ICA-MCA occlusion, felt timing and risk of TNK high and going for thrombectomy at [facility] where he may also require DAPT load and possible L KATIUSKA, so TNK NOT administered Potential Candidate for Endovascular Therapy: Yes - NIHSS greater than or equal to 6 with POSITIVE large vessel occlusion Endovascular Treatment Plan: Neurology reviewed, Intervention is PLANNED Disposition/Billing (Physician is not in the same physical location as the patient) The patient will be transferred to another institution for further evaluation and management Reason for Transfer: Transfer for immediate intervention consideration (EVT consideration or advanced imaging) Planned Facility for Transfer: [facility] Telephone Only: Minutes spent reviewing pertinent diagnostic data and discussing patient care with the referring physician: 28 More than 50 percent of the encounter was spent on coordinating care of the patient during a telestroke. Thank you for contacting the [facility]. I appreciate the opportunity for allowing me to participate in Miri Cai's care. Please feel free to contact me and/or the [facility] at any time if you have any further questions or need additional assistance. Paradise Guillaume MD February 06, 2022 10:41 PM Addendum: After above, I was called back by CCT/HT at 2303 to let me know air transport had to beaborted d/t weather. Ground transport will be at least 2 hours. Myself, Carlito Alexander and Jinny re-conferenced, and decision was made to administer TNK given delayed time for transfer for thrombectomy.Once again confirmed with Dr. Ortez that surgeon felt benefit at this point outweighed risk as well (not highly vascular surgery). Rather than changing entire note above, this addendum made. Dr Ortez will order TNK now and administer. Timing delayed obviously given circumstances of clinical scenario. I do not have TNK administration time at the time of this note addendum. [ABB February 06, 2022 11:08 PM ] documented in this encounterC[facility]09-[facility]-2022 NoteHNO ID: [id number] Author: Carson Bullock III, DO Service: ? Author Type: Physician Type: Progress Notes Filed: 01/31/2022 12:41 PM Note Text: HISTORY AND PHYSICAL Date of Surgery: 02/06/2022 Brief History: The patient is a pleasant 76 year old male who presents to the office with bilateral shoulder pain. The patient reports ongoing left shoulder pain for several years. He describes constant moderate pain, loss of motion, clicking, weakness, grinding, and locking. He notes discomfort with overhead activities and at night. He states his shoulder are currently functioning at 40% of normal. He is unable to wash his back. He notes significant difficulty with tilting, lifting 10 pounds above his shoulder, and throwing a ball overhand. He has moderate difficulty with putting on a coat, sleeping on either side, and reaching a high shelf. I have personally reviewed prior documentation and X-rays. The patient states that his quality of life is not currently acceptable given the left shoulder function. The patient is now ready to consider surgical intervention. The patient presents for discussion to determine if he is a good surgical candidate. Patient Risk Factors: See below Kerri Benoit, transcribing for Dr. Carson Bullock III, D.O. PAIN EVALUATION 01/31/2022 1052 Pain Level: 4 Pain Location: Shoulder-Left Description: Aching ORTHOPAEDIC HISTORY REVIEW: Previous injury to shoulder: Denies Current injury to shoulder: Denies Conservative Therapy: Present, rest, observation, activity modification NSAID Therapy: Denies Physical Therapy: Denies Injections: Denies Previous Imaging: Yes, X-rays in office Previous shoulder surgeries: Denies Employment: The patient is retired. Their shoulder pain is not a work related injury. Night Pain or Difficulty Sleeping: Denies Patient Risk Factors: Diabetes mellitus (HCC) and Essential hypertension; Lyme Disease ALLERGIES No Known Allergies Current Outpatient Medications Medication Sig Dispense Refill ELIQUIS 5 mg tab(s) Take 5 mg by mouth twice daily. Ascorbic Acid 1,000 mg TbER Take by mouth. cholecalciferol (VITAMIN D3) 1,000 unit tab tablet Take by mouth. metoprolol succinate ER (TOPROL XL) 50 mg 24 hr tablet Take 50 mg by mouth. No current facility-administered medications for this visit. PAST MEDICAL HISTORY Diagnosis Date Arrhythmia Diabetes mellitus (HCC) Essential hypertension PAST SURGICAL HISTORY Procedure Laterality Date NON-MELANOMA SKIN CANCER TUMOR BOARD [facility] 10/2021 REMV CATARACT EXTRACAP,INSERT LENS Bilateral 06/2021 REPAIR INCISIONAL HERNIA,REDUCIBLE 2008 Ht 5' 10 (1.78m) Wt 183 lb 8 oz (83.2kg) BMI 26.33 kg/(m2). Review of Systems Constitutional: Negative. HENT: Negative. Respiratory: Negative. Cardiovascular: Negative. Gastrointestinal: Negative. Endocrine: Negative. Skin: Negative. Wound on the top of the head due to skin cancer Neurological: Negative. Hematological: Negative. Musculoskeletal: Negative. Positive for left shoulder pain Left Shoulder Exam Tenderness The patient is experiencing tenderness in the biceps tendon (Greater Tuberosity). Range of Motion Active abduction: 80 abnormal Passive abduction: 80 abnormal Extension: 30 abnormal External rotation: 30 abnormal Forward flexion: 150 abnormal Internal rotation 0 degrees: Sacrum abnormal Internal rotation 90 degrees: 40 abnormal Muscle Strength Abduction: 4/5 Internal rotation: 4/5 External rotation: 3/5 Supraspinatus: 4/5 Subscapularis: 4/5 Biceps: 4/5 Tests Samson test: positive Impingement: positive Drop arm: positive Other Erythema: absent Scars: absent Sensation: normal Pulse: present DIAGNOSTIC STUDIES: Previous xrays were reviewed with the patient in great detail. These xrays demonstrate erosion of the glenoid. There is severe arthritis of the glenohumeral joint. The AC joint has age appropriate arthrosis. On the scapular Y view there is a Type II acromion. On the axillary view the glenoid vault has severe glenoid retroversion. There are no acute injuries or fractures. Close inspection of the bone shows no obvious lesions. The density in quality of the bone is appropriate given their age. Procedures Encounter Diagnosis ICD-10-CM 1. 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 PLAN: MEDICAL DECISION MAKING: Moderate (Major Surgery) TIME: I spent a total of 35 minutes on the date of the service which included preparing to see the patient, [id number] patient care, completing clinical documentation, obtaining and/or reviewing separately obtained history, performing a medically appropriate examination, counseling and educating the patient/family/caregiver, ordering medications, tests, or procedures, independently interpreting results (not separately reported), communicating results to the patient/family/caregiver, and care (more content not included)...[facility]09-22-2022 Miscellaneous Notes* Telephone Encounter - Ellen Davila RN - 01/31/2022 11:15 AM EDT Patient presented for a pre-op visit today to discuss his upcoming left RTSA scheduled for 02/06/2022. I instructed him to stop taking his Eliquis on 02/03/2022. All other regularly scheduled medications he is permitted to take the morning of surgery with a small sip of water only and no coffee or juice. I instructed him not to eat or drink anything after midnight on 02/06/2022. He verbalized understanding. I reminded him to please complete the covid swab and type/screen on 02/03/2022. CBC, BMP, Chest Xray and EKG have been completed. All pre-testing results and requested clearances (Cardiology, Infectious Disease and Dr. Brooks) were placed in the chart for the provider to review with the patient today. Hibiclens soap was provided to the patient and he voiced understanding on when he is supposed to use it. He stated his home is set up appropriately for the post-op period. His 2-week postop office visit was set up for 02/21/2022 and a reminder card was provided. Per Deloris at [facility] surgeryscheduling- he is to arrive at 9:00 a.m. as he is using public trransportation. Informed Consent was placed in the chart for the provider to review and sign with the patient. All other questions wereanswered. I instructed them to call in with any concerns/questions. Ellen Davila RN documented in this encounterC[facility]09-[facility]-2022 Miscellaneous Notes* Telephone Encounter - Carson Bullock III, DO - 01/29/2022 8:57 AM EDT Thanks for the update. Carson Bullock III, DO * Telephone Encounter - Hannah Pavon - 01/28/2022 10:01 AM EDT Patient called in to notify his phone is now working. He is concerned about the order of insurance on his lab orders. He wanted to make sure we have Medicare as primary and [employer] as secondary. I told him that is the order they are listed in his chart. Patient states he stopped in to the office last week and was told we had all his clearances for surgery. I explained we are waiting on clearances from his PCP and his shadow graph weight operator. He states he was scheduled to see his PCP but cancelled it this morning since he was told we had his clearances. He will call back to reschedule his appointment with his PCP. Advised patient to call his shadow graph weight operator for clearance appointment since his phone was out and they could not call him to schedule. Hannah Pavon documented in this encounterC[facility]09-15-2022 Miscellaneous Notes* Telephone Encounter - Ellen Davila RN - 01/24/2022 3:37 PM EDT The patient stopped into the office and I instructed him to continue his Metoprolol and Eliquis. I explained that we will discuss when to discontinue the Eliquis during his pre-op visit on 01/31. He voiced understanding. I told him to call into the office with any further concerns/questions. Ellen Davila RN * Telephone Encounter - Belkis Nam PA-C - 01/24/2022 11:29 AM EDT Thank you for the update. Belkis Nam PA-C * Telephone Encounter - Ellen Davila RN - 01/24/2022 11:23 AM EDT I called and spoke with Loan AKERS at Dr. Tony's office. They also received a call from the lab at [facility] regarding the results and advised that I instruct the patient to continue those two medications until indicated otherwise. Will notify him when he stops into the office. Ellne Davila RN * Telephone Encounter - Ellen Davila RN - 01/24/2022 11:00 AM EDT I received a call from cardiology at [facility] regarding this patients EKG report. He is currently in atrial flutter due to stopping his Metoprolol and Eliquis yesterday with no recommendation from the prescribing physician. His phone is broken so he is planning on coming into our office today. I reached out to Araceli at [facility] pre-op to inform her of the above. Ellen Davila, RN documented in this encounterCleveland Clinic [facility]09-15-2022 Miscellaneous Notes* Telephone Encounter - Ta Poe - 01/24/2022 12:16 PM EDT Per Concha Beltran at [facility], Approved; Auth # [id number] 01/15/2022-01/15/2023 Ta Poe * Telephone Encounter - Ta Poe - 01/15/2022 12:07 PM EDT Per Concha Beltran at [facility], [place] [id number] [place] [id number] does require an auth. Auth has been sent via [facility] website and is pending; Call ref # [id number] Ta Poe * Telephone Encounter - Hannah Pavon - 01/15/2022 11:00 AM EDT Miri Cai 1945 Date of Surgery: 02/06/2022 Surgeon's Name: Carson Bullock III, DO Facility: [facility] Surgery: Left Reverse total shoulder arthroplasty; open biceps tenodesis Surgical Diagnosis: M19.012 Primary osteoarthritis of left shoulder (primary encounter diagnosis) S46.102A Injury of tendon of long head of left biceps, initial encounter M25.512, G89.29 Chronic left shoulder pain CPT Code: 91507, 79200 ICD 10: M19.012, S46.102 documented in this encounterCleveland [facility]09-02-2022 Miscellaneous Notes* Telephone Encounter - Hannah Pavon - 01/11/2022 3:38 PM EDT Patient is scheduled for Left Reverse total shoulder arthroplasty; open biceps tenodesis on 2021. Please review and sign orders. Physician review appointment scheduled for 01/31/2022. Hannah Pavon * Telephone Encounter - Hannah Pavon - 01/11/2022 11:51 AM EDT Left message on machine to call. Calling to schedule surgery. Hannah Pavon documented in this encounterCleveland Clinic [facility]08-17-2022 Miscellaneous Notes* Telephone Encounter - Kerri Abraham - 12/26/2021 2:[address] SCAN SCHEDULED 01/10/22. KERRI documented in this encounterCleveland Clinic [facility]08-16-2022 NoteHNO ID: [id number] Author: Carson Bullock III, DO Service: ? Author Type: Physician Type: Progress Notes Filed: 12/31/2021 9:57 PM Note Text: ESTABLISHED PATIENT - NEW SHOULDER EXAM Brief History: The patient is a pleasant 76 year old male who presents to the office with bilateral shoulder pain. The patient is familiar to my office. He was kindly referred by Dr. Lee. I have personally reviewed prior documentation and X-rays. The patient was seen on 12/17/2021 for bilateral shoulder pain by Dr. Lee. He states his left shoulder is worse. The patient states this has been going on over the last several years. Today, the patient states his shoulder pain is getting worse. He states he has pain with certain movements. The patient states he can hear occasional crunching in his shoulder. He does not currently take anything for the pain. He is here today for evaluation and treatment options. I, BRENDAN Trent, transcribing for Dr. Carson Bullock III, D.O. PAIN EVALUATION 12/25/2021 1107 Pain Level: 3 ORTHOPAEDIC HISTORY REVIEW: Previous injury to shoulder: Denies Current injury to shoulder: Denies Conservative Therapy: Present, rest, observation, activity modification NSAID Therapy: Denies Physical Therapy: Denies Injections: Denies Previous Imaging: Yes, X-rays in office Previous shoulder surgeries: Denies Employment: The patient is retired. Their shoulder pain is not a work related injury. Night Pain or Difficulty Sleeping: Denies Patient Risk Factors: Diabetes mellitus (HCC) and Essential hypertension ALLERGIES No Known Allergies Current Outpatient Medications Medication Sig Dispense Refill ELIQUIS 5 mg tab(s) Take 5 mg by mouth twice daily. Ascorbic Acid 1,000 mg TbER Take by mouth. cholecalciferol (VITAMIN D3) 1,000 unit tab tablet Take by mouth. metoprolol succinate ER (TOPROL XL) 50 mg 24 hr tablet Take 50 mg by mouth. No current facility-administered medications for this visit. PAST MEDICAL HISTORY Diagnosis Date Arrhythmia Diabetes mellitus (HCC) Essential hypertension PAST SURGICAL HISTORY Procedure Laterality Date NON-MELANOMA SKIN CANCER TUMOR BOARD [facility] 10/2021 REMV CATARACT EXTRACAP,INSERT LENS Bilateral 06/2021 REPAIR INCISIONAL HERNIA,REDUCIBLE 2008 BP 175/93 Pulse 87 Ht 5' 10 (1.78m) Wt 185 lb (83.9kg) BMI 26.54 kg/(m2). Review of Systems Constitutional: Negative. HENT: Negative. Respiratory: Negative. Cardiovascular: Negative. Gastrointestinal: Negative. Endocrine: Negative. Skin: Negative. Wound on the top of the head due to skin cancer Neurological: Negative. Hematological: Negative. Musculoskeletal: Positive for left shoulder pain Left Shoulder Exam Tenderness The patient is experiencing tenderness in the biceps tendon (Greater Tuberosity). Range of Motion Active abduction: 80 abnormal Passive abduction: 80 abnormal Extension: 30 abnormal External rotation: 30 abnormal Forward flexion: 150 abnormal Internal rotation 0 degrees: Sacrum abnormal Internal rotation 90 degrees: 40 abnormal Muscle Strength Abduction: 4/5 Internal rotation: 4/5 External rotation: 3/5 Supraspinatus: 4/5 Subscapularis: 4/5 Biceps: 4/5 Tests Samson test: positive Impingement: positive Drop arm: positive Other Erythema: absent Scars: absent Sensation: normal Pulse: present DIAGNOSTIC STUDIES: On 12/17/2021 in the office, three views of the patient's left shoulder were taken and personally reviewed with the patient in great detail. These xrays demonstrate erosion of the glenoid. There is severe arthritis of the glenohumeral joint. The AC joint has age appropriate arthrosis. On the scapular Y view there is a Type II acromion. On the axillary view the glenoid vault has adequate bone stock. There are no acute injuries or fractures. Close inspection of the bone shows no obvious lesions. The density in quality of the bone is appropriate given their age. Procedures Encounter Diagnosis ICD-10-CM 1. 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 Injury of tendon of long head of left biceps, initial encounter S46.102A 3. Chronic left shoulder pain M25.512 CT SHOULDER WO IVCON LT G89.29 PLAN: MEDICAL DECISION MAKING: Moderate (Potential for Major Surgery) TIME: I spent a total of 30 minutes on the date of the service which included preparing to see the patient, [id number] patient care, completing clinical documentation, obtaining and/or reviewing separately obtained history, performing a medically appropriate examination, counseling and educating the patient/family/caregiver, ordering medications, tests, or procedures, independently interpreting results (not separately reported), communicating results to the patient/family/caregiver, and care coordination (not separately reported). TREATMENT RISK AND MORBIDITY: Moderate (more content not included)...[facility]08-[facility] History of Present illness Narrative* Carson Bullock III, - 12/25/2021 11:15 AM EDT ESTABLISHED PATIENT - NEW SHOULDER EXAM Brief History: The patient is a pleasant 76 year old male who presents to the office with bilateral shoulder pain.The patient is familiar to my office. He was kindly referred by Dr. Lee. I have personally reviewed prior documentation and X-rays. The patient was seen on 12/17/2021 for bilateral shoulder pain by Dr. Lee. He states his left shoulder is worse. The patient states this has been going on over the last several years. Today, the patient states his shoulder pain is getting worse. He states he has pain with certain movements. The patient states he can hear occasional crunching in his shoulder. He does not currently take anything for the pain. He is here today for evaluation and treatment options. I, BRENDAN Trent, transcribing for Dr. Carson Bullock III, D.O. PAIN EVALUATION 12/25/2021 1107 Pain Level: 3 ORTHOPAEDIC HISTORY REVIEW: Previous injury to shoulder: Denies Current injury to shoulder: Denies Conservative Therapy: Present, rest, observation, activity modification NSAID Therapy: Denies Physical Therapy: Denies Injections: Denies Previous Imaging: Yes, X-rays in office Previous shoulder surgeries: Denies Employment: The patient is retired. Their shoulder pain is not a work related injury. Night Pain or Difficulty Sleeping: Denies Patient Risk Factors: Diabetes mellitus (HCC) and Essential hypertension ALLERGIES No Known Allergies Current Outpatient Medications Medication Sig Dispense Refill ELIQUIS 5 mg tab(s) Take 5 mg by mouth twice daily. Ascorbic Acid 1,000 mg TbER Take by mouth. cholecalciferol (VITAMIN D3) 1,000 unit tab tablet Take by mouth. metoprolol succinate ER (TOPROL XL) 50 mg 24 hr tablet Take 50 mg by mouth. No current facility-administered medications for this visit. PAST MEDICAL HISTORY Diagnosis Date Arrhythmia Diabetes mellitus (HCC) Essential hypertension PAST SURGICAL HISTORY Procedure Laterality Date NON-MELANOMA SKIN CANCER TUMOR [facility] 10/2021 REMV CATARACT EXTRACAP,INSERT LENS Bilateral 06/2021 REPAIR INCISIONAL HERNIA,REDUCIBLE 2008 BP 175/93 Pulse 87 Ht 5' 10 (1.78m) Wt 185 lb (83.9kg) BMI 26.54 kg/(m^2). Review of Systems Constitutional: Negative. HENT: Negative. Respiratory: Negative. Cardiovascular: Negative. Gastrointestinal: Negative. Endocrine: Negative. Skin: Negative. Wound on the top of the head due to skin cancer Neurological: Negative. Hematological: Negative. Musculoskeletal: Positive for left shoulder pain Left Shoulder Exam Tenderness The patient is experiencing tenderness in the biceps tendon (Greater Tuberosity). Range of Motion Active abduction: 80 abnormal Passive abduction: 80 abnormal Extension: 30 abnormal External rotation: 30 abnormal Forward flexion: 150 abnormal Internal rotation 0 degrees: Sacrum abnormal Internal rotation 90 degrees: 40 abnormal Muscle Strength Abduction: 4/5 Internal rotation: 4/5 External rotation: 3/5 Supraspinatus: 4/5 Subscapularis: 4/5 Biceps: 4/5 Tests Samson test: positive Impingement: positive Drop arm: positive Other Erythema: absent Scars: absent Sensation: normal Pulse: present DIAGNOSTIC STUDIES: On 12/17/2021 in the office, three views of the patient's left shoulder were taken and personally reviewed with the patient in great detail. These xrays demonstrate erosion of the glenoid. There is severe arthritis of the glenohumeral joint. The AC joint has age appropriate arthrosis. On the scapularY view there is a Type II acromion. On the axillary view the glenoid vault has adequate bone stock.There are no acute injuries or fractures. Close inspection of the bone shows no obvious lesions. The density in quality of the bone is appropriate given their age. Procedures Encounter Diagnosis ICD-10-CM 1. 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 Injury of tendon of long head of left biceps, initial encounter S46.102A 3. Chronic left shoulder pain M25.512 CT SHOULDER WO IVCON LT G89.29 PLAN: MEDICAL DECISION MAKING: Moderate (Potential for Major Surgery) TIME: I spent a total of 30 minutes on the date of the service which included preparing to see the patient, [id number] patient care, completing clinical documentation, obtaining and/or reviewing separately obtained history, performing a medically appropriate examination, counseling and educating the pat ient/family/caregiver, ordering medications, tests, or procedures, independently interpreting results (not separately reported), communicating results to the patient/family/caregiver, and care coordination (not separately reported). TREATMENT RISK & MORBIDITY: Moderate (Potential for Major Surgery) PAST MEDICAL HISTORY Diagnosis Date Arrhythmia Diabetes mellitus (HCC) Essential hypertension PLAN: I spoke with the patient in the office where we discussed the patient's history, symptoms, physicalexam findings and radiographic images. I have diagnosed the patient with severe primary osteoarthritis of the left shoulder and tendinosis of the long-head of the biceps. Based on today's visit and diagnostic studies, I have diagnosed the patient with severe osteoarthritis of the left shoulder and injury to the long head of the biceps. Due to the patient's continued pain and dysfunction - I am recommending he considers a left reverse shoulder arthroplasty with open long head biceps tenodesis. The patient has failed conservative treatments thus far with no significant improvement in pain or function. The patient states that the quality of life is not currently acceptable given the left shoulder function. Specific complications including, but not limited to infection, neurovascular injury, failure to relieve pain, failure of the implant, loss of motion, instability of the prosthesis and various complications with anesthesia, were discussed in detail with the patient. The typical post-operative rehabilitation course was also discussed in detail. All the patient's questions were answered. The patient is wanting to consider his options. The patient will need to obtain medical clearance from his primary care physician prior to the surgery. CT using the Blueprint protocol for surgical planning will be scheduled. The patient will return to office for a reevaluation to determine if he is a good surgical candidate. All questions were answered for the patient and they know to contact our office should their symptoms worsen or if they have concerns with our current treatment plan. Patient expressed understanding. Carson Bullock III, DO I, Dr. Carson Bullock III D.OIoana have reviewed and approved the information in this document that wascreated in the medical record and transcribed by Renee Mullins MA. [facility] NoteHNO ID: [id number] Author: An Lee MD Service: ? Author Type: Physician Type: Progress Notes Filed: 12/17/2021 2:05 PM Note Text: SERVICE DATE: December 17, 2021 1:50 PM PCP: No primary care provider on file. Consult requested by JENELLE Hendricks for an opinion regarding chief complaint as stated below. My final impression and recommendations will be communicated back to the requesting physician by way of the shared medical record or letter via US mail. Subjective Patient ID: Miri Cai is a 76 year old male presenting today with a complaint of bilateral shoulder pain, left worse than right. HPI: Patient presents with bilateral upper extremity complaints. He has noted bilateral shoulder pain over the last several years. He states his left shoulder is worse than his right. He is right hand dominant. He denies any specific injury to either shoulder. He describes constant moderate pain, loss of motion, clicking, weakness, grinding, and locking. He notes discomfort with overhead activities and at night. He states his shoulder are currently functioning at 40% of normal. He is unable to wash his back. He notes significant difficulty with toileting, lifting 10 pounds above his shoulder, and throwing a ball overhand. He has moderate difficulty with putting on a coat, sleeping on either side, and reaching a high shelf. 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 Brandy Benoit scribe, transcribing for An Lee MD PAIN EVALUATION 12/17/2021 1318 Pain Level: 4 ALLERGIES No Known Allergies PAST MEDICAL HISTORY Diagnosis Date Arrhythmia Diabetes mellitus (HCC) Essential hypertension PAST SURGICAL HISTORY Procedure Laterality Date NON-[facility] 10/2021 REMV CATARACT EXTRACAP,INSERT LENS Bilateral 06/2021 REPAIR INCISIONAL HERNIA,REDUCIBLE 2009 History reviewed. No pertinent family history. Social History Tobacco Use Smoking status: Former Types: Cigarettes, Cigars Smokeless tobacco: Never Substance Use Topics Alcohol use: Yes Comment: not very often Drug use: Yes Current Outpatient Medications Medication Sig Dispense Refill ELIQUIS 5 mg tab(s) Take 5 mg by mouth twice daily. Ascorbic Acid 1,000 mg TbER Take by mouth. cholecalciferol (VITAMIN D3) 1,000 unit tab tablet Take by mouth. metoprolol succinate ER (TOPROL XL) 50 mg 24 hr tablet Take 50 mg by mouth. No current facility-administered medications for this visit. Allergies, medications, past surgical history, family history and past medical history were reviewed per this encounter. Review of Systems Constitutional: Negative for activity change, chills, fatigue, fever and unexpected weight change. HENT: Negative for dental problem, sore throat, tinnitus, trouble swallowing and voice change. Eyes: Negative for visual disturbance. Respiratory: Negative for apnea, cough, shortness of breath and wheezing. Cardiovascular: Positive for palpitations. Negative for chest pain and leg swelling. Gastrointestinal: Negative for constipation, diarrhea, nausea and vomiting. Genitourinary: Positive for frequency (and nocturia). Negative for difficulty urinating, dysuria and urgency. Skin: Negative for color change, rash and wound. Neurological: Negative for dizziness, seizures, syncope, weakness, numbness and headaches. Hematological: Does not bruise/bleed easily. Psychiatric/Behavioral: Negative for behavioral problems and decreased concentration. The patient is not nervous/anxious. Physical Exam BP 160/98 Pulse 89 Ht 177.8 cm (5' 10) Wt 83.9 kg (185 lb 1 oz) BMI 26.55 kg/m? General: Alert and oriented. No acute distress. Ambulation status: Within normal limits. Appearance: Within normal limits, well nourished, well developed. Behavior: Within normal limits, appropriate cooperative. Pulmonary: Non-labored respirations Cardio: Peripheral pulses intact Right Shoulder Exam Tenderness The patient is experiencing no tenderness. Range of Motion Forward flexion: abnormal Internal rotation 0 degrees: abnormal Muscle Strength The patient has normal right shoulder strength. Tests Samson test: negative Impingement: negative Other Erythema: absent Scars: absent Sensation: normal Pulse: present Left Shoulder Exam Tenderness The patient is experiencing no tenderness. Range of Motion Forward flexion: abnormal Internal rotation 0 degrees: abnormal Muscle Strength The patient has normal left shoulder strength. Tests Samson test: negative Impingement: negative Other Erythema: absent Scars: absent Sensation: normal Pulse: present IMAGING: Personal review of AP, axillary, and scapular Y view right and left shoulder x-rays ordered and personally reviewed today show severe bilateral degenerative change in both shoulders. Assessment/Plan ASSESSMENT: Primary osteoarthritis right an (more content not included)... [facility]08-08-2022 History of Present illness Narrative* An Lee MD - 12/17/2021 1:49 PM EDT SERVICE DATE: December 17, 2021 1:50 PM PCP: No primary care provider on file. Consult requested by JENELLE Hendricks for an opinion regarding chief complaint as stated below. My final impression and recommendations will be communicated back to the requesting physician by way of the shared medical record or letter via US mail. Subjective Patient ID: Miri Cai is a 76 year old male presenting today with a complaint of bilateralshoulder pain, left worse than right. HPI: Patient presents with bilateral upper extremity complaints. He has noted bilateral shoulder pain over the last several years. He states his left shoulder is worse than his right. He is right hand dominant. He denies any specific injury to either shoulder. He describes constant moderate pain, loss of motion, clicking, weakness, grinding, and locking. He notes discomfort with overhead activities and at night. He states his shoulder are currently functioning at 40% of normal. He is unable to wash his back. He notes significant difficulty with toileting, lifting 10 pounds above his shoulder,and throwing a ball overhand. He has moderate difficulty with putting on a coat, sleeping on eitherside, and reaching a high shelf. 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 Brandy Benoit scribmarie, transcribing for An Lee MD PAIN EVALUATION 12/17/2021 1318 Pain Level: 4 ALLERGIES No Known Allergies PAST MEDICAL HISTORY Diagnosis Date Arrhythmia Diabetes mellitus (HCC) Essential hypertension PAST SURGICAL HISTORY Procedure Laterality Date NON-[facility] 10/2021 REMV CATARACT EXTRACAP,INSERT LENS Bilateral 06/2021 REPAIR INCISIONAL HERNIA,REDUCIBLE 2009 History reviewed. No pertinent family history. Social History Tobacco Use Smoking status: Former Types: Cigarettes, Cigars Smokeless tobacco: Never Substance Use Topics Alcohol use: Yes Comment: not very often Drug use: Yes Current Outpatient Medications Medication Sig Dispense Refill ELIQUIS 5 mg tab(s) Take 5 mg by mouth twice daily. Ascorbic Acid 1,000 mg TbER Take by mouth. cholecalciferol (VITAMIN D3) 1,000 unit tab tablet Take by mouth. metoprolol succinate ER (TOPROL XL) 50 mg 24 hr tablet Take 50 mg by mouth. No current facility-administered medications for this visit. Allergies, medications, past surgical history, family history and past medical history were reviewed per this encounter. Review of Systems Constitutional: Negative for activity change, chills, fatigue, fever and unexpected weight change. HENT: Negative for dental problem, sore throat, tinnitus, trouble swallowing and voice change. Eyes: Negative for visual disturbance. Respiratory: Negative for apnea, cough, shortness of breath and wheezing. Cardiovascular: Positive for palpitations. Negative for chest pain and leg swelling. Gastrointestinal: Negative for constipation, diarrhea, nausea and vomiting. Genitourinary: Positive for frequency (and nocturia). Negative for difficulty urinating, dysuria and urgency. Skin: Negative for color change, rash and wound. Neurological: Negative for dizziness, seizures, syncope, weakness, numbness and headaches. Hematological: Does not bruise/bleed easily. Psychiatric/Behavioral: Negative for behavioral problems and decreased concentration. The patient is not nervous/anxious. Physical Exam BP 160/98 Pulse 89 Ht 177.8 cm (5' 10) Wt 83.9 kg (185 lb 1 oz) BMI 26.55 kg/m General: Alert and oriented. No acute distress. Ambulation status: Within normal limits. Appearance: Within normal limits, well nourished, well developed. Behavior: Within normal limits, appropriate cooperative. Pulmonary: Non-labored respirations Cardio: Peripheral pulses intact Right Shoulder Exam Tenderness The patient is experiencing no tenderness. Range of Motion Forward flexion: abnormal Internal rotation 0 degrees: abnormal Muscle Strength The patient has normal right shoulder strength. Tests Samson test: negative Impingement: negative Other Erythema: absent Scars: absent Sensation: normal Pulse: present Left Shoulder Exam Tenderness The patient is experiencing no tenderness. Range of Motion Forward flexion: abnormal Internal rotation 0 degrees: abnormal Muscle Strength The patient has normal left shoulder strength. Tests Samson test: negative Impingement: negative Other Erythema: absent Scars: absent Sensation: normal Pulse: present IMAGING: Personal review of AP, axillary, and scapular Y view right and left shoulder x-rays ordered and personally reviewed today show severe bilateral degenerative change in both shoulders. Assessment/Plan ASSESSMENT: Primary osteoarthritis right and left shoulders. Encounter Diagnosis ICD-10-CM 1. Chronic pain of both shoulders M25.511 XR SHOULDER GENERAL 3V OR MORE AP/TRUE AP/OTHER RIGHT G89.29 XR SHOULDER GENERAL 3V OR MORE AP/TRUE AP/OTHER LEFT M25.512 2. Primary osteoarthritis of shoulders, bilateral M19.011 M19.012 PLAN: X-rays have been reviewed with the patient. Treatment options have been discussed. Recommendations are for further evaluation per Dr. Marie. The information in this document was created with the assistance of mariangel Luke. I, AN LEE M.D. , have reviewed and approved this document for accuracy. Return for Dr Karimi for Bilateral shoulder OA. An Lee MD This note was generated with voice recognition software and may contain errors including spelling, grammar, syntax and misrecognition of what was dictated, that are not fully corrected. documented in [facility] encounter[facility]* Diagnosis Chronic pain of both shoulders- Primary Pain in joint, shoulder region Primary osteoarthritis of shoulders, bilateral [facility]* Diagnosis Primary osteoarthritis of left shoulder- Primary Primary localized osteoarthrosis, shoulder region Injury of tendon of long head of left biceps, initial encounter Chronic left shoulder pain Pain in joint, shoulder region [facility] Diagnosis Primary osteoarthritis of left shoulder- Primary Primary localized osteoarthrosis, shoulder region Injury of tendon of long head of left biceps, initial encounter Preoperative testing Preoperative examination, unspecified Diabetes mellitus due to underlying condition with hyperglycemia, with long-term current use of insulin (HCC) documented in this encounter [facility] note* Diagnosis Acute ischemic left ICA stroke (HCC)- Primary Unspecified cerebral artery occlusion with cerebral infarction documented in this encounter [facility] note* Diagnosis Orthopedic aftercare- Primary Unspecified orthopedic aftercare 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 Primary localized osteoarthrosis, shoulder region documented in this encounter [facility] note* Diagnosis Onset Date Resolution Status Acute ischemic left MCA stroke acute Barretts esophagus acute Cognitive dysfunction acute Debility acute Dysphagia acute GERD (gastroesophageal reflux disease) acute GERD with esophagitis acute History of left shoulder replacement acute Normochromic normocytic anemia acute Right hemiplegia acute Urinary incontinence acute Diaper dermatitis resolved Esophageal obstruction resol robb Fecal incontinence resolved Insomnia resolved Leukopenia resolved Urine retention resolved Acute ischemic left MCA stroke acute Barretts esophagus acute Cognitive dysfunction acute Debility acute Dysphagia acute GERD (gastroesophageal reflux disease) acute GERD with esophagitis acute History of left shoulder replacement acute Normochromic normocytic anemia acute Right hemiplegia acute Urinary incontinence acute Epistaxis resolved Hypokalemia resolved Urine retention resolved [facility] Work Phone: Reason for referral (narrative)* Diagnostic Procedure Only (Routine) - Pending Review Specialty Diagnoses / Procedures Referred By Contac t Referred To Contact XR IMAGING Diagnoses Chronic pain of both shoulders Procedures XR SHOULDER GENERAL 3V OR MORE AP/TRUE AP/OTHER LEFT RADEX SHOULDER COMPLETE MINIMUM 2 VIEWS An Lee MD [address] [place] [address] Xr Imaging Referral ID Status Reason Start Date Expiration Date Visits Requested Visits Authorized [id number] Pending Review Auto-Generat ed Referral 12/17/2021 01/16/2023 1 1 * Diagnostic Procedure Only (Routine) - Pending Review Specialty Diagnoses / Procedures Referred By Contac t Referred To Contact XR IMAGING Diagnoses Chronic pain of both shoulders Procedures XR SHOULDER GENERAL 3V OR MORE AP/TRUE AP/OTHER RIGHT RADEX SHOULDER COMPLETE MINIMUM 2 VIEWS An Lee MD [address] [place] [address] Xr Imaging Referral ID Status Reason Start Date Expiration Date Visits Requested Visits Authorized [id number] Pending Review Auto-Generat ed Referral 12/17/2021 01/16/2023 1 1 [facility] for referral (narrative)* Outpatient Procedure (Routine) - Pending Review Specialty Diagnoses / Procedures Referred By Contac t Referred To Contact [facility] Diagnoses Primary osteoarthritis of left shoulder Injury of tendon of long head of left biceps, initial encounter Preoperative testing Procedures ECG COMPLETE ECG ROUTINE ECG W/LEAST 12 LDS W/I&R Carson Bullock III, DO [address] [place] [address] [facility] [address] [place] [address] Referral ID Status Reason Start Date Expiration Date Visits Requested Visits Authorized [id number] Pending Review Auto-Generat ed Referral 01/12/2022 01/11/2023 1 1 [facility] for referral (narrative)* Diagnostic Procedure Only (Routine) - Pending Review Specialty Diagnoses / Procedures Referred By Contac t Referred To Contact XR IMAGING Diagnoses Primary osteoarthritis of left shoulder Procedures XR SHOULDER LIMITED 2V AP/TRUE AP LEFT RADEX SHOULDER COMPLETE MINIMUM 2 VIEWS Belkis Nam PA-C [address] [place] [address] Xr Imaging Referral ID Status Reason Start Date Expiration Date Visits Requested Visits Authorized [id number] Pending Review Auto-Generat ed Referral 2 04/25/2023 1 1 [facility] for referral (narrative)No reason for referral information [facility]WS[facility] Work Phone: Summary Purpose Family History No Family History Records FoundNo Family History Records FoundNo Family History Records FoundNo Family History Records FoundNo Family History Records FoundNo Family History Records FoundNo Family History Records FoundNo Family History Records FoundNo Family History Records FoundNo Family History Records Found Advance Directives No Advanced Directives Records Found Advance Directive Response Recorded Date/ Time Living Will No April 12 4:17pm Power of Mineral Engineer No April 12, 2022 4:17pm Advance Directive Response Recorded Date/ Time Do you have a Healthcare Pow er of Mineral Engineer? Yes August 31, 2024 11:50pm Name of Medical Power of Mineral Engineer Franchesca Guerrero ipnokandis August 31, 2024 11:50pm Reason for Referral Specialty Diagnoses / Procedures Referred By Wagner villela Referred To Contact CT IMAGING Diagnoses Primary osteoarthritis of left shoulder Chronic left shoulder pain Procedures CT SHOULDER WO IVCON LT CT UPPER EXTREMITY W/O CONTRAST MATERIAL Carson Bullock III, DO [address] [place] [address] Ct Imaging Referral ID Status Reason Start Date Expiration Date Visits Requested Visits Authorized [id number] Pending Review Auto-Generat ed Referral 12/25/2021 01/24/2023 1 1 Chief Complaint and Reason for Visit Chief Complaint STROKE STROKE STROKE STROKE STROKE STROKE STROKE STROKE STROKE STROKE STROKE STROKE STROKE FOLLOW-UP VISIT CARE HOME LABWORK ACUTE CARE VISIT CARE HOME LABWORK DEBILITY due to embolic L MCA CVA DEBILITY DEBILITY DEBILITY DEBILITY DEBILITY DEBILITY DEBILITY DEBILITY DEBILITY due to embolic L MCA CVA Reason for Visit Acute ischemic left MCA stroke Barretts esophagus Cognitive dysfunction Debility Dysphagia GERD (gastroesophageal reflux disease) GERD with esophagitis History of left shoulder replacement Normochromic normocytic anemia Right hemiplegia Urinary incontinence Diaper dermatitis Esophageal obstruction Fecal incontinence Insomnia Leukopenia Urine retention Acute ischemic left MCA stroke Barretts esophagus Cognitive dysfunction Debility Dysphagia GERD (gastroesophageal reflux disease) GERD with esophagitis History of left shoulder replacement Normochromic normocytic anemia Right hemiplegia Urinary incontinence Epistaxis Hypokalemia Urine retention Chief Complaint Admit Date RSV AND ACUTE BRONCHITIS August 31 10:59pm RSV AND ACUTE BRONCHITIS September 01 8:40am RSV AND ACUTE BRONCHITIS September 02 10:51am Reason for Visit Admit Date Acute bronchitis due to respiratory sync ytial virus August 31, 2024 10:59pm Acute bronchospasm August 31, 2024 10: 59pm Anticoagulated August 31, 2024 10: 59pm History of atrial fibrillation August 10:59pm History of CVA with residual deficit Apr 2024 10:59pm Hypoxia August 31, 2024 10: 59pm Obesity (BMI 30-39.9) August 31, 2024 1 0:59pm Respiratory insufficiency August 31 10:59pm Right hemiplegia August 31, 2024 10: 59pm RSV infection August 31, 2024 10: 59pm Health Concerns Infection Onset Date Last Indicated Resolved Time COVID-19 Rule-Out 02/03/2022 02/03/2022 02/04/2022 5:44 AM EDT Additional Source Comments (unrecognized sect ion and content) No Status Records FoundNo Status Records FoundNo Status Records FoundNo Status Records FoundNo Status Records FoundNo Status Records FoundNo Status Records FoundNo Status Records FoundNo Status Records FoundNo Status Records Found INFORMATION SOURCE (unrecogn ized section and content) DATE CREATED AUTHOR 10/21/2018 [facility] DATE CREATED AUTHOR AUTHOR'S ORGANIZ ATION 07/11/2019 [facility] ([place]) DATE CREATED AUTHOR AUTHOR'S ORGANIZ ATION 06/06/2021 [facility] DATE CREATED AUTHOR AUTHOR'S ORGANIZ ATION 06/10/2021 [facility] DATE CREATED AUTHOR AUTHOR'S ORGANIZ ATION 09/21/2021 [facility] DATE CREATED AUTHOR AUTHOR'S ORGANIZ ATION 02/10/2022 [facility] DATE CREATED AUTHOR AUTHOR'S ORGANIZ ATION 02/11/2022 [facility] DATE CREATED AUTHOR AUTHOR'S ORGANIZ ATION 05/16/2022 [facility] DATE CREATED AUTHOR AUTHOR'S ORGANIZ ATION 05/23/2022 [facility] DATE CREATED AUTHOR AUTHOR'S ORGANIZ ATION 09/21/2024 [facility] Source Comments (unrecognize d section and content) In the event this informatio n is protected by the Federal Confidentiality of Alcohol and Drug Abuse Patient Records regulations: The Federal rules restrict any use of the information to criminally investigate or prosecute any alcohol or drug abuse patient.[facility] Hospital[facility] the event this information is protected by the Federal Confidentiality of Alcohol and Drug Abuse Patient Records regulations: The Federal rules restrict any use of the information to criminally investigate or prosecute any alcohol or drug abuse patient.[facility] HospitalIn the event this information is protected by the Federal Confidentiality of Alcohol and Drug Abuse Patient Records regulations: The Federal rules restrict any use of the information to criminally investigate or prosecute any alcohol or drug abuse patient.[facility] Hospital[facility] the event this information is protected by the Federal Confidentiality of Alcohol and Drug Abuse Patient Records regulations: The Federal rules restrict any use of the information to criminally investigate or prosecute any alcohol or drug abuse patient.[facility] Hospital[facility] the event this information is protected by the Federal Confidentiality of Alcohol and Drug Abuse Patient Records regulations: The Federal rules restrict any use of the information to criminally investigate or prosecute any alcohol or drug abuse patient.[facility] Hospital[facility] the event this information is protected by the Federal Confidentiality of Alcohol and Drug Abuse Patient Records regulations: The Federal rules restrict any use of the information to criminally investigate or prosecute any alcohol or drug abuse patient.[facility] Hospital[facility] the event this information is protected by the Federal Confidentiality of Alcohol and Drug Abuse Patient Records regulations: The Federal rules restrict any use of the information to criminally investigate or prosecute any alcohol or drug abuse patient.[facility] Hospital[facility] the event this information is protected by the Federal Confidentiality of Alcohol and Drug Abuse Patient Records regulations: The Federal rules restrict any use of the information to criminally investigate or prosecute any alcohol or drug abuse patient.[facility] Hospital[facility] the event this information is protected by the Federal Confidentiality of Alcohol and Drug Abuse Patient Records regulations: The Federal rules restrict any use of the information to criminally investigate or prosecute any alcohol or drug abuse patient.[facility] the event this information is protected by the Federal Confidentiality of Alcohol and Drug Abuse Patient Records regulations: The Federal rules restrict any use of the information to criminally investigate or prosecute any alcohol or drug abuse patient.[facility] the event this information is protected by the Federal Confidentiality of Alcohol and Drug Abuse Patient Records regulations: The Federal rules restrict any use of the information to criminally investigate or prosecute any alcohol or drug abuse patient.[facility] HospitalIn the event this information is protected by the Federal Confidentiality of Alcohol and Drug Abuse Patient Records regulations: The Federal rules restrict any use of the information to criminally investigate or prosecute any alcohol or drug abuse patient.[facility] HospitalIn the event this information is protected by the Federal Confidentiality of Alcohol and Drug Abuse Patient Records regulations: The Federal rules restrict any use of the information to criminally investigate or prosecute any alcohol or drug abuse patient.[facility] HospitalIn the event this information is protected by the Federal Confidentiality of Alcohol and Drug Abuse Patient Records regulations: The Federal rules restrict any use of the information to criminally investigate or prosecute any alcohol or drug abuse patient.[facility] HospitalIn the event this information is protected by the Federal Confidentiality of Alcohol and Drug Abuse Patient Records regulations: The Federal rules restrict any use of the information to criminally investigate or prosecute any alcohol or drug abuse patient.[facility] HospitalIn the event this information is protected by the Federal Confidentiality of Alcohol and Drug Abuse Patient Records regulations: The Federal rules restrict any use of the information to criminally investigate or prosecute any alcohol or drug abuse patient.[facility] HospitalIn the event this information is protected by the Federal Confidentiality of Alcohol and Drug Abuse Patient Records regulations: The Federal rules restrict any use of the information to criminally investigate or prosecute any alcohol or drug abuse patient.[facility] HospitalIn the event this information is protected by the Federal Confidentiality of Alcohol and Drug Abuse Patient Records regulations: The Federal rules restrict any use of the information to criminally investigate or prosecute any alcohol or drug abuse patient.[facility] HospitalIn the event this information is protected by the Federal Confidentiality of Alcohol and Drug Abuse Patient Records regulations: The Federal rules restrict any use of the information to criminally investigate or prosecute any alcohol or drug abuse patient.[facility] HospitalIn the event this information is protected by the Federal Confidentiality of Alcohol and Drug Abuse Patient Records regulations: The Federal rules restrict any use of the information to criminally investigate or prosecute any alcohol or drug abuse patient.[facility] Reason for Visit (unrecogniz ed section and content) Reason Comments New Reason Comments New Established Patient Reason Comments Scans Reason Comments Schedule Surgery Reason Comments AMBX SX AUTH 02/06/2022 Reason Comments EKG Result Reason Comments Preparations For Surgery Reason Comments Physician Review Appointment Reason Comments Potential Stroke Symptoms Reason Comments Orders Reason Comments Established Patient Post Op Reason Comments No Show Reason Onset Date Comments Modified [place] Score 05/22/2022 Care Teams (unrecognized sec tion and content) Rotary Driller Relationship Specialty Start Date End Date Palak Kidd PA [address] [place] [address] PCP - General Family Practice 01/15/22 Rotary Driller Relationship Specialty Start Date End Date Palak Kidd PA [address] [place] [address] PCP - General Family Practice 01/15/22 Rotary Driller Relationship Specialty Start Date End Date Palak Kidd PA [address] [place] [address] PCP - General Family Practice 01/15/22 Rotary Driller Relationship Specialty Start Date End Date Palak Kidd PA [address] [place] [address] PCP - General Family Medicine 01/15/22 Rotary Driller Relationship Specialty Start Date End Date Palak Kidd PA [address] [place] [address] PCP - General Family Medicine 01/15/22 Rotary Driller Relationship Specialty Start Date End Date Palak Kidd PA [address] [place] [address] PCP - General Family Medicine 01/15/22 Rotary Driller Relationship Specialty Start Date End Date Palak Kidd PA [address] [place] [address] PCP - General Family Medicine 01/15/22 Rotary Driller Relationship Specialty Start Date End Date Palak Kidd PA [address] [place] [address] PCP - General Family Medicine 01/15/22 Rotary Driller Relationship Specialty Start Date End Date Palak Kidd PA [address] [place] [address] PCP - General Family Medicine 01/15/22 Rotary Driller Relationship Specialty Start Date End Date Palak Kidd PA [address] [place] [address] PCP - General Family Medicine 01/15/22 Rotary Driller Relationship Specialty Start Date End Date Palak Kidd PA [address] [place] [address] PCP - General Family Medicine 01/15/22 Team Status: Active Member Role Status Dates Dr. Eligio Contreras MD Primary Care Provider Active Team Status: Inactive Member Role Status Dates Dr. Eligio Contreras MD Primary Care Provider Active Start: August 31, 2024 End: September 02, 2024 Dr. Jayden Sanchez DO Emergency Provider Active Start: August 31, 2024 End: September 02, 2024 Dr. An Cassidy DO Admit Provider Active Start: August 31, 2024 End: September 02, 2024 Dr. An Cassidy DO Other Provider Active Start: August 31, 2024 End: September 02, 2024 Dr. Merary Wong DO Attending Provider Active S tart: August 31, 2024 End: September 02, 2024 Dr. Merary Wong DO Other Provider Active Start : August 31, 2024 End: September 02, 2024 Team Status: Active Member Role Status Dates Dr. Eligio Contreras MD Primary Care Provider Active Start: September 01, 2024 Dr. Jayden Sanchez DO Emergency Provider Active Start: September 01, 2024 Dr. An Cassidy , Admit Provider Active Start: September 01, 2024 Dr. An Cassidy DO Other Provider Active Start: September 01, 2024 Dr. Merary Wong DO Attending Provider Active S tart: September 01, 2024 Dr. Merary Wong DO Other Provider Active Start : September 01, 2024 Team Status: Active Member Role Status Dates Dr. Eligio Contreras MD Primary Care Provider Active Start: September 02, 2024 Dr. Jayden Sanchez DO Emergency Provider Active Start: September 02, 2024 Dr. An Cassidy DO Admit Provider Active Start: September 02, 2024 Dr. An Cassidy DO Other Provider Active Start: September 02, 2024 Dr. Merary Wong DO Attending Provider Active S tart: September 02, 2024 Dr. Merary Wong DO Other Provider Active Start : September 02, 2024 FOR RECORDS PERTAINING TO PATIENTS WHO ARE OR HAVE BEEN ENROLLED IN A CHEMICAL DEPENDENCY/SUBSTANCEABUSE PROGRAM, SOME INFORMATION MAY BE OMITTED. This clinical summary was aggregated from multiple sources. Caution should be exercised in using it in the provision of clinical care. This summary normalizes information from multiple sources, and as a consequence, information in this document may materially change the coding, format and clinical context of patient data. In addition, data may be omitted in some cases. CLINICAL DECISIONS SHOULD BE BASED ON THE PRIMARY CLINICAL RECORDS. [employer] provides no warranty or guarantee of the accuracy or completeness of information in this document.
[2024-12-26] MEDS: 0.9% Normal Saline (500mL Bag) 500 ML 999 ML IV (21:09)
--- NOTE | 2024-12-26 21:20 | RAD_ITS ---
PROCEDURE: CHEST 1 VIEW (PORTABLE) 12/26/2024 REASON FOR EXAM: ALTERED MENTAL STATUS TECHNIQUE: Frontal view of the chest. COMPARISON: Chest x-ray 08/31/2024 FINDINGS: Hardware: Partially imaged left shoulder arthroplasty. Heart: Cardiac and mediastinal contours are stable. Lungs: No significant change in the appearance of the lungs. Bibasilar atelectasis. Bones: The bones are unremarkable. RAD/Chest 1 View (Portable) IMPRESSION: Bibasilar atelectasis. [facility]
[2024-12-26 21:37] LABS: AST(SGOT) 30 U/L (<=37); Alanine Aminotransfer ALT/SGPT 36 U/L (<=46); Albumin, Serum 3.8 g/dL (3.4-4.8); Alkaline Phosphatase 99 U/L (40-129); Anion Gap 13 (5-15); BUN 17 mg/dL (4-19); BUN/Creat Ratio 15.4 RATIO (10-20); Calcium,Total 9.3 mg/dL (7.6-11.0); Carbon Dioxide 21.7 mmol/L (21.0-32.0); Chloride 97 mmol/L (98-108); Estimated Creatinine Clearance 61.68 ml/min (50-250); Globulin 2.5 g/dL (2.2-4.2); Glucose 153 mg/dL (70-99); Potassium 4.3 mmol/L (3.3-5.1)
[2024-12-26 22:00] VITALS: BP 110/65; PULSE 57; RESP 15; O2SAT 99
[2024-12-26 22:49] LABS: Mucous, Urine 0 SEEN /hpf (<or=2+); Squamous Epithelial Cells - UA 0 SEEN /hpf (0-5)
[2024-12-26 22:55] LABS: Color, Urine Yellow (Yellow); Glucose, Dipstick Normal (Normal); Ketone-Dipstick Negative (Negative); Leukocyte Esterase-Dipstick Negative /ul (Negative); Nitrite-Dipstick Negative (Negative); Occult Blood-Urine 10 /ul (Negative); Protein-Dipstick 30 mg/dl (Negative); Specific Gravity, Urine 1.010 (1.002-1.030); Urine Bilirubin Dipstick Negative (Negative)
[2024-12-26 23:00] VITALS: BP 125/68; PULSE 63; RESP 16; O2SAT 99
[2024-12-26 23:07] LABS: Red Blood Cells-Urine 0-5 SEEN /hpf (0-5)
[2024-12-26 23:54] VITALS: BP 128/72; PULSE 62; RESP 16; TEMP 36.6; O2SAT 100
[2024-12-27 01:00] VITALS: BP 134/71; PULSE 53; RESP 14; O2SAT 98
== END 2024-12-27 02:12 | disposition home or self-care (01) ==
PROVIDERS: Emergency Provider Emergency Medicine; PCP Family Medicine; Visit Provider Emergency Medicine
DX: R40.4 Transient alteration of awareness (principal); I69.351 Hemiplegia and hemiparesis following cerebral infarction affecting right dominant side; I48.20 Chronic atrial fibrillation, unspecified; I10 Essential (primary) hypertension; F17.290 Nicotine dependence, other tobacco product, uncomplicated; Z66 Do not resuscitate; Z95.828 Presence of other vascular implants and grafts; Z79.01 Long term (current) use of anticoagulants; Z79.02 Long term (current) use of antithrombotics/antiplatelets; Z79.899 Other long term (current) drug therapy
CPT/HCPCS: 70496; 70498; 71045; 80053; 81001; 85025; 93005; 96360; 96361; 99285; Q9967

== ENCOUNTER 2025-04-01 21:02 | Emergency (ER) | payer MEDICARE, OTHER, SELFPAY ==
[2025-04-01 21:03] VITALS: BP 78/47; PULSE 50; RESP 19; TEMP 38.2; BMI 32.9
--- NOTE | 2025-04-01 21:08 | EKG12_ITS ---
Test Reason : CP Blood Pressure : */* mmHG Vent. Rate : 61 BPM Atrial Rate : * BPM P-R Int : * ms QRS Dur : 76 ms QT Int : 454 ms P-R-T Axes : * -4 55 degrees QTcB Int : 457 ms Atrial fibrillation Low voltage QRS Abnormal ECG Confirmed by YOBANY BIRMINGHAM, SARAY ([id number]), editorial project manager CHANDLER ALCALA ([id number]) on 04/04/2025 1:33:05 PM Referred By: KEVIN Confirmed By: SARAY HAYWOOD MD
[2025-04-01 22:03] VITALS: BP 98/66; PULSE 54; RESP 17
--- NOTE | 2025-04-01 22:16 | EX.ED.DYSGE1 ---
HPI History of Present Illness Chief Complaint: Chest Pain Detail of Chief Complaint: Low blood pressure. Informant: patient and family (Accompanied by his niece and her .) Onset/Context/Timing Onset: Today Timing: Continuous Current Severity: Moderate Maximum Severity: Moderate Narrative Narrative: 79-year-old male from [facility]. History of stroke with right-sided weakness unable to ambulate. History of A-fib, hypertension, diabetes. On chronic anticoagulation Eliquis. Family visiting earlier today said he was doing well. Tonight he developed weakness with decreased level of consciousness. He has a known DNR comfort care. Squad was called by Rom Longo and was sent into the emergency department. Prior similar symptoms: Yes Recent Illness/Hospitalization: [facility] Medical History History of atrial fibrillation Obesity (BMI 30-39.9) History of CVA with residual deficit Anticoagulated Right hemiplegia Esophageal stenosis History of left common carotid artery stent placement Hyperlipidemia Hypertension Atrial fibrillation History of skin cancer Stenosis of left internal carotid artery Stroke Cataract Afib Diabetes Home Medications ?Medication ?Instructions ?Recorded ?Last Taken ?Type apixaban 5 mg tablet (Eliquis) 5 mg PO BID Check with primary 02/19/22 Unknown History doctor atorvastatin 80 mg tablet 80 mg PO QHS cholesterol 02/19/22 Unknown History clopidogrel 75 mg tablet (Plavix) 75 mg PO DAILY Check with primary 02/19/22 Unknown History doctor metoprolol tartrate 50 mg tablet 50 mg PO BID BP 02/19/22 Unknown History tamsulosin 0.4 mg capsule (Flomax) 0.4 mg PO DAILY retention 02/19/22 02/19/22 08:30 History doxazosin 1 mg tablet 1 mg PO QHS urine 04/12/22 Unknown History menthol 0.44 %-zinc oxide 20.6 % 1 applic topical BID@0600,2200 04/12/22 Unknown History topical ointment (Calmoseptine) cream pantoprazole 40 mg tablet,delayed 40 mg PO DAILY heartburn 04/12/22 Unknown History release sennosides 8.6 mg-docusate sodium 1 tab PO QHS constipation 04/12/22 Unknown History 50 mg tablet (Stool Softener-Stimulant Laxative) acetaminophen 500 mg tablet 1,000 mg (2 x 500 mg) PO Q8 #0 tabs 05/02/22 Unknown Rx loperamide 2 mg capsule 2 mg PO Q6H PRN loose stool 08/31/24 Unknown History (Anti-Diarrheal (loperamide)) nystatin 100,000 unit/gram topical 1 applic topical Q8H 08/31/24 Unknown History powder sertraline 25 mg tablet 25 mg PO DAILY 08/31/24 Unknown History tizanidine 4 mg tablet 4 mg PO QHS 08/31/24 Unknown History acetaminophen 325 mg tablet 650 mg PO Q4H PRN fever or pain 12/26/24 Unknown History (Aminofen) bisacodyl 10 mg rectal suppository 10 mg PA PRN PRN Constipation 12/26/24 Unknown History cholecalciferol (vitamin D3) 50 2,000 unit PO DAILY 12/26/24 Unknown History mcg (2,000 unit) tablet (D3 DOTS) magnesium hydroxide 400 mg/5 mL 30 ml PO PRN PRN Constipation 12/26/24 Unknown History oral suspension magnesium hydroxide 400 mg/5 mL 30 ml PO DAILY PRN constipation 12/26/24 Unknown History oral suspension (Dulcolax (magnesium hydroxide)) multivitamin (Daily Multi-Vitamin 1 tab PO DAILY 12/26/24 Unknown History tablet) vitamin B complex (Balanced B-50 1 tab PO DAILY 12/26/24 Unknown History tablet) Allergy/AdvReac Type Severity Reaction Status Date / Time No Known Allergies Allergy Verified 12/26/24 19:36 Family History no significant family his Surgical History Status post dilation of esophageal narrowing History of left shoulder replacement History of cataract surgery History of left shoulder replacement Social History household members: none Smoking Status: Current some day smoker tobacco type: pipe and cigars alcohol intake: current alcohol intake frequency: holidays/special occasions only substance use type: does not use ROS ROS ED ROS Narrative Denies recent illness. Constitutional Constitutional ED: Reports fever(s); Denies chills Eyes Eyes: Denies blurry vision ENT ENT ED: Denies ear pain Cardiovascular Cardiovascular: Denies chest pain Respiratory/Chest Respiratory/Chest: Denies cough or dyspnea Gastrointestinal Gastrointestinal: Denies abdominal pain Genitourinary Genitourinary ED: Denies dysuria or hematuria Musculoskeletal Musculoskeletal: Denies arthralgias Integumentary Denies abscess Neurologic Neurologic: Denies headache(s) Psychiatric Psychiatric: Denies anxiety Endocrine Endocrinology: Denies cold intolerance Hematologic/Lymphatic Hematologic/Lymphatic: Reports none Allergic/Immunologic Allergic/Immunologic ED: Denies mouth swelling, tongue swelling or urticaria EXAM Physical Exam Narrative Exam Narrative: 79-year-old male lying in bed vital signs show a temperature 100.7 orally. Heart rate of 50 and A-fib. The blood pressure 78/47. 2 family members are present 1 of which is his niece and her . H EENT exam pupils round react light. Dry mucous membranes. No trauma. Neck nontender no lymphadenopathy. Lungs clear to auscultation bilaterally. Heart A-fib bradycardic in the 50s. Chest wall ribs nontender. Abdomen soft nontender. Nondistended. No peritoneal signs. No pulsatile mass> no obstruction. Moves all 4 extremities. Very weak with the right arm and right leg from a prior stroke. Normal mud logger with the left hand and normal dorsi plantarflexion with the left foot. Neurologically he is awake. He is alert. He is answering questions. He has mildly slurred speech but it is easily understandable. Const Vital Signs: 04/01/25 21:03 04/01/25 22:03 Temperature 100.7 F H Temperature Source Oral Pulse Rate 50 L 54 L Respiratory Rate 19 H 17 Blood Pressure 78/47 L 98/66 Blood Pressure Mean 57 76 MDM MDM MDM Narrative Medical decision making narrative: 79-year-old male with history of a major stroke in the past unable to walk and right sided weakness. Presents hypotensive, chronic A-fib with a low-grade fever 100.7. He is DNR. He understands that he could have a serious issue sepsis sepsis, dehydration, electrolyte abnormalities versus many other etiologies. Family states he does not have much quality of life since his stroke. And he does not want any further workup. We discussed doing tests and deciding if he would treat him as dehydration or infection or other etiologies. He did not want any of that. Family at bedside is comfortable with that plan and says it is his decision. He is competent to make that decision. He had a prior episode like this 1 other time that they treated his dehydration. He did not want any further fluids he was given a liter by the squad. He did not want any further evaluation. He just wants to be discharged back to group longterm. They will have a discussion with the longterm if he wants any further transport. History & Record Review Discussion w/independent historian: Patient and Family Additional record(s) reviewed:: Prior inpatient record, Prior outpatient record, Prior ED visit and Prior labs Lab Data Lab results narrative: Patient did not want any further workup. Rhythm Strip Rhythm Strip: A-fib Rate: 61 Ectopy: None EKG Initial EKG: Attestation: I personally reviewed and interpreted this EKG as follows: Interpretation: Atrial Fibrillation Discharge Plan Triage Chief Complaint: Chest Pain Other Complaint: Lower Extremity Injury ED Provider: Gildardo Reynolds Dx/Rx/DC Orders Clinical Impression: Weakness, Acute hypotension, Fever, History of stroke, DNR (do not resuscitate), Chronic a-fib, Diabetes Prescriptions: No Action atorvastatin 80 mg Tablet 80 mg PO QHS clopidogrel [Plavix] 75 mg Tablet 75 mg PO DAILY tamsulosin [Flomax] 0.4 mg Capsule 0.4 mg PO DAILY metoprolol tartrate 50 mg Tablet 50 mg PO BID Eliquis 5 mg Tablet 5 mg PO BID doxazosin 1 mg tablet 1 mg PO QHS sennosides-docusate sodium [Stool Softener-Stimulant Laxat] 8.6-50 mg tablet 1 tab PO QHS pantoprazole 40 mg tablet,delayed release (DR/EC) 40 mg PO DAILY menthol-zinc oxide [Calmoseptine] 0.44-20.6 % ointment 1 applic topical BID@0600,2200 Protocol: *Topical Application Instructions APPLICATION INSTRUCTIONS: apply to buttocks and coccyx acetaminophen 500 mg Tablet 1,000 mg PO Q8 Qty: 0 0RF magnesium hydroxide [Dulcolax (magnesium hydroxide)] 400 mg/5 mL suspension 30 ml PO DAILY PRN (Reason: constipation) multivitamin [Daily Multi-Vitamin] Tablet 1 tab PO DAILY cholecalciferol (vitamin D3) [D3 DOTS] 50 mcg (2,000 unit) tablet 2,000 unit PO DAILY vitamin B complex [Balanced B-50] Tablet 1 tab PO DAILY acetaminophen [Aminofen] 325 mg tablet 650 mg PO Q4H PRN (Reason: fever or pain) magnesium hydroxide 400 mg/5 mL Suspension 30 ml PO PRN PRN (Reason: Constipation) bisacodyl 10 mg Suppository 10 mg PA PRN PRN (Reason: Constipation) loperamide [Anti-Diarrheal (loperamide)] 2 mg capsule 2 mg PO Q6H PRN (Reason: loose stool) tizanidine 4 mg tablet 4 mg PO QHS sertraline 25 mg tablet 25 mg PO DAILY nystatin 100,000 unit/gram powder 1 applic topical Q8H Primary Care Provider: Eligio Contreras Referrals: Eligio Contreras MD [Primary Care Provider, Family Practice] - As Needed Activity Restrictions/Additional Instructions: Plenty of fluids. To help you blood pressure. Tylenol for fever. Follow-up with your primary care physician if you want to or the physician at [facility]. I would have a discussion with the people at [facility] that if you do not want evaluation or treatment then there is probably no reason to transport you to the hospital. Print Language: Greenlandic Disposition Disposition: Home, Self Care
[2025-04-01 22:18] VITALS: BP 100/52; PULSE 77; RESP 16; TEMP 36.3; O2SAT 96; O2SAT 98
--- OUTSIDE RECORDS SUMMARY | 2025-04-01 22:24 | XMS RPT_ITS | CCD ---
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 Name Role Phone Unavailable Primary Care Provider [...] Care Provider UnavailPalak Cast Primary Care Provider Palak Mcgee Primary Care Provider MARTI, PALAK M Attending Unavailable MARTI, PALAK M Primary Care Unavailable MARTI, PALAK M Referring Unavailable MARTI, PALAK M Primary Care Unavailable MARTI, PALAK M Attending Unavailable MARTI, PALAK M Primary Care Unavailable MARTI, PALAK M Referring Unavailable MARTI, PALAK M Primary Care Unavailable MARTI, PALAK M Referring Unavailable MARIT, PALAK M Primary Care Unavailable MARTI, PALAK [...] D Attending Unavailable IDOINE IIICARSON Attending Unavailable IDOCARSON OLSEN III Attending Unavailable CARSON BULLOCK III Attending Unavailable CARSON BULLOCK III Attending Unavailable Dr. Lucien Gramajo Chi Admit Provider Avila Dr. Lucien Tinoco Other Provider Friend, Dr. Blair Attending Provider Friend, Dr. Blair Other Provider [phone] Sementi, Dr. Janneth Salgado Referring Provider Sementi, Dr. Janneth Salgado Attending Provider Sementi, Dr. Janneth Salgado Other Provider Melissa HOSPICE SOCIAL WORKER, HOSPICE SOCIAL WORKER-C Angelika Attending Provider Unav ailable Sementi, Dr. Janneth Salgado Admit Provider AN LEE Attending Unavailab le MARTI, PALAK Mary Carmen Referring Unavailable MARTI, PALAK M Primary Care [...] Unavail able Palak Mcgee Primary Care Provider [phone] DORA YEBOAH Admitting Unavailable DIAZ APONTE Consulting Unavai PALAK Moreno M Primary Care Unavailable FAISAL CREWS Attending Unavailable Palak Mcgee Primary Care Provider Dr. Eligio Contreras MD Primary Care Provider [phone] Dr. Jayden Sanchez DO Emergency Provider [phone] Dr. An Cassidy DO Admit Provider Unavail able Dr. An Cassidy DO Other Provider Unavail able Dr. Merary Wong DO Attending Provider [phone] Dr. Merary Wong DO Other Provider Dr. Caio Wolff DO Emergency Provider Eligio Contreras Primary Care Unavailable Merary Wong Consulting Unavailable An Cassidy Admitting Unavailable Merary Wong Attending Unavailable An Cassidy Consulting Unavailable Eligio Contreras Primary Care Unavailable Caio Wolff Attending Unavailable An Cassidy Admitting Unavailable Eligio Contreras Primary Care Unavailable Merary Wong Attending Unavailable Merary Wong Consulting Unavailable An Cassidy Consulting Unavailable An Cassidy Attending Unavailable Medications Current Medications Medication Drug Class(es) Dates Sig (Normalized) Sig (Original) acetaminophen 325 mg oral tablet (11 sources) Start: 12-26-2024 Acetaminophen (Aminofen) 325 mg tablet Active 650 mg PO Q4H as needed for fever or pain December 26, 2024 12:00am Start: 05-02-2022 take 2 tablets by mo uth every eight hours Acetaminophen 500 mg Tablet Active 1000 mg PO EVERY 8 HOURS 0 0 May 02, 2022 1:00am Start: 05-02-2022 [...] for pain. apixaban 5 mg oral tablet (20 sources) Factor Xa Inhibitor Start: 12-09-19 take 1 tablet by mouth twice daily Apixaban (Eliquis) 5 mg Tablet Active 5 mg PO TWICE A DAY February 19, 2022 12:00am Check with primary doctor Comment on above: Take 5 mg by mouth t wice daily. atorvastatin 80 mg oral tablet (7 sources) HMG-CoA Reductase Inhibitor Start: 02-20-20 take 1 tablet by mouth at bedtime Atorvastatin 80 mg Tablet Active 80 mg PO AT BEDTIME February 19, 2022 12:00am cholesterol Comment on above: 1 tablet by ORAL/FEE DING TUBE route daily at bedtime. bisacodyl 10 mg rectal suppository (4 sources) Stimulant Laxative Start: 05-02-20 End: 12-27-19 Bisacodyl 10 mg Suppository Active 10 mg RC NEEDED as needed for Constipation December 26, 2024 12:00am Start: 05-02-2022 Bisacodyl Acti ve 10 MG RC .PRN X 1 0 May 02, 2022 12:00am cholecalciferol 0.05 mg oral tablet (14 sources) Vitamin D Start: 12-26-2024 Cholecalcifero l (Vitamin D3) (D3 Dots) 50 mcg (2,000 unit) tablet Active 2000 U PO DAILY December 26, 2024 12:00am take 1 tablet by mouth twice eulalio ly cholecalciferol (VITAMIN D3) 1,000 unit tab tablet Take 1,000 Units by mouth twice daily. 0 Suspended cholecalciferol (VITAMIN D3) 1,000 unit tab tablet Take by mouth. 0 Suspended Comment on above: Take by mouth. Take 1,000 Units by mouth twice daily. clopidogrel 75 mg oral tablet (7 sources) P2Y12 Platelet Inhibitor Start: 2 take 1 tablet by mouth once daily Clopidogrel (Plavix) 75 mg Tablet Active 75 mg PO DAILY February 19, 2022 12:00am Check with primary doctor Comment on above: 1 tablet by ORAL/FEE DING TUBE route once daily. docusate sodium 50 mg / sennosides, custodial 8.6 mg oral tablet (6 sources) Start: 2 Sennosides-Docusate Sodium (Stool Softener-Stimulant Laxat) 8.6-50 mg tablet Active 1 {tbl} PO AT BEDTIME April 12, 2022 1:30pm constipation Start: 03-13-2022 End: 04-12-2022 Sennosides-Docusate Sodium ( Stool Softener-Stimulant Laxat) 8.6-50 mg Tablet Discontinued 2 {tbl} PO TWICE A DAY as needed for Constipation 0 0 March 13, 2022 12:00am April 12, 2022 1:17pm doxazosin 1 mg oral tablet (6 sources) alpha-Adrenergic Lorraine Start: 03-13-2022 End: 04-12-2022 take 1 tablet by mouth at bedtime Doxazosin 1 mg tablet Active 1 mg PO AT BEDTIME April 12, 2022 1:17pm urine loperamide hydrochloride 2 mg oral capsule (2 sources) Opioid Agonist Start: 08-31-2024 take 1 capsule by mouth every six hours as needed Loperamide (Anti-Diarrheal (Loperamide)) 2 mg capsule Active 2 mg PO EVERY 6 HOURS as needed for loose stool August 31, 2024 12:00am Magnesium Hydroxide (5 sources) Start: 12-26-2024 take 1 mL by mouth once daily as needed for constipation Magnesium Hydroxide (Dulcolax (Magnesium Hydroxide)) 400 mg/5 mL suspension Active 30 mL PO DAILY as needed for constipation December 26, 2024 12:00am Start: 12-26-2024 Magnesium Hydr oxide 400 mg/5 mL Suspension Active 30 mL PO NEEDED as needed for Constipation December 26, 2024 12:00am Start: 05-02-2022 End: 12-26-2024 Magnesium Hydroxide 400 mg/5 mL Suspension Discontinued 30 mL PO .PRN X 1 as needed for Constipation 0 0 May 02, 2022 1:00am December 26, 2024 7:47pm Start: 05-02-2022 Magnesium Hydr Performed By: #### 5 7021-8 ####[facility]ATORYCLIA [id number] [address] [place] MCV (RBC) [Entitic vol] 95.1 fL Normal 80.0-100.[address] [facility] Comment on above: Order Comment: Speci men Type: BLOOD SPECIMENOrdering Facility: [facility] Address: [address] [address] Performed By: #### 5 7021-8 ####[facility]ORYCLIA [id number] [address] OF [facility] Monocytes (Bld) [#/Vol] 0.66 10*3/uL Normal <0.87 [facility] Comment on above: Order Comment: Speci men Type: BLOOD SPECIMENOrdering Facility: [facility] Address: [address] [address] Performed By: #### 5 7021-8 ####[facility]ORYCLIA [id number] [address] Monocytes/100 WBC (Bld) 8.9 % Normal A [facility] Comment on above: Order Comment: Speci men Type: BLOOD SPECIMENOrdering Facility: [facility] Address: [address] [place] [address] Performed By: #### 5 7021-8 ####[facility]ORYCLIA [id number] [address] [place] Neutrophils (Bld) [#/Vol] 5.47 10*3/uL Normal 1.45-7.50 [facility] Comment on above: Order Comment: Speci men Type: BLOOD SPECIMENOrdering Facility: [facility] Address: [address] [address] Performed By: #### 5 7021-8 ####[facility]ORYCLIA [id number] [address] STATES [facility] Neutrophils/100 WBC (Bld) 73.6 % Normal [facility] Comment on above: Order Comment: Speci men Type: BLOOD SPECIMENOrdering Facility: [facility] Address: [address] [place] [address] Performed By: #### 5 7021-8 ####[facility]ORYCLIA [id number] [address] [place] Nucleated RBC (Bld) [#/Vol] 10*3/uL Normal <0.01 [facility] Comment on above: Order Comment: Speci men Type: BLOOD SPECIMENOrdering Facility: [facility] Address: [address] [place] [address] Performed By: #### 5 7021-8 ####[facility]ORYCLIA [id number] [address] [place] Nucleated RBC/100 WBC (Bld) [Ratio] 0.0 /100 WBC Normal [facility] Comment on above: Order Comment: Speci men Type: BLOOD SPECIMENOrdering Facility: [facility] Address: [address] [place] [address] Performed By: #### 5 7021-8 ####[facility]ORYCLIA [id number] [address] [place] Platelet mean volume (Bld) [Entitic vol] 10.1 fL Normal 9.0-12.7 [facility] Comment on above: Order Comment: Speci men Type: BLOOD SPECIMENOrdering Facility: [facility] Address: [address] [place] [address] Performed By: #### 5 7021-8 ####[facility]ORYCLIA [id number] [address] OF [facility] Platelets (Bld) [#/Vol] 292 10*3/uL Normal 150-400 [facility] Comment on above: Order Comment: Speci men Type: BLOOD SPECIMENOrdering Facility: [facility] Address: [address] [place] [address] Performed By: #### 5 7021-8 ####[facility]ORYCLIA [id number] [address] RBC (Bld) [#/Vol] 2.65 10*6/uL Low 4.20-6.00 [facility] Comment on above: Order Comment: Speci men Type: BLOOD SPECIMENOrdering Facility: [facility] Address: [address] [place] [address] Performed By: #### 5 7021-8 ####[facility]ORYCLIA [id number] [address] WBC (Bld) [#/Vol] 7.43 10*3/uL Normal 3.70-11.00 [facility] Comment on above: Order Comment: Speci men Type: BLOOD SPECIMENOrdering Facility: [facility] Address: [address] [place] [address] Performed By: #### 5 7021-8 ####[facility]ATORYCLIA [id number] [address] CONSULT PROGon 02-15-2022 CONSULT PROG HNO ID: [id number] Author: Noni Rider PA-C Service: Neurology General Author Type: Physician Work Station Support Specialist Type: Consult Progress Note Filed: 02/15/2022 1:15 [...] 2022 1:15 PM 1149 Normal [facility] CT BRAIN WO IVCONon 02-16-20 CT BRAIN WO IVCON * * *Final Report* * * DATE OF EXAM: Feb 15 2022 10:49AM [facility] 0504 - CT BRAIN WO IVCON / [...] Iterative recon COMPARISON: MR brain 02/09/2022 RESULT: Mathematics Instructor (topogram) images: No additional findings. Post-operative change: [...] MR. No space-occupying hematoma. Local mass effect. Chief Maintenance Supervisor: PSCB Transcribe Date/Time: Feb 15 2022 11:05A Dictated by : JENIFER PORTER MD This examination was interpreted and the report reviewed and electronically signed by: JENIFER PORTER MD on Feb 15 2022 11:10AM EST [id number] Normal [facility] THERAPY NTon 02-15-2022 THERAPY NT HNO ID: [id number] Author: Pricilla Camarena PT Service: Physical Therapy Author Type: Physical Therapist Type: Therapy (PT/OT/Speech/Resp) Filed: 02/15/2022 3:03 PM Note Text: Physical Therapy Treatment SERVICE DATE: 02/15/2022 SERVICE TIME: 1350 to 1428 ROOM: [place] [address] Recommended Discharge Disposition: Acute Rehab Recommended Discharge [...] (more content not included)... Normal [facility] CONSULT PROGochamp 02-14-2022 CONSULT PROG HNO ID: [id number] Author: Max Nazario APRN.OLAP DEVELOPER Service: Neurology General Author Type: Nurse Practitioner Type: Consult Progress Note Filed: 02/14/2022 11:53 AM Note Text: NEURO STROKE PROGRESS NOTE SERVICE DATE: 02/14/2022 SERVICE TIME: 829 Subjective INTERVAL HISTORY: No acute events overnight. [...] Score: 10 (02/14/22 0830 : Max Nazario APRN.OLAP DEVELOPER) 10 MENTAL STATUS: Alert, oriented to person, [...] HbA1c, CMP, CBC, Coags Recent Labs 02/13/22 0428 02/12/22 0241 02/11/22 1746 02/11/22 0949 NA [...] (more content not included)... Normal [facility] NURSING PROGon 02-14-2022 NURSING PROG HNO ID: [id number] Author: Liza Burdick RN Service: Nursing Author [...] labs. Patient's RN will pass on to [facility] RN. Normal [facility] THERAPY NTon 02-14-2022 THERAPY NT HNO ID: [id number] Author: Clementine Borrero OTR/L Service: Occupational Therapy Author Type: Occupational Therapist Type: Therapy (PT/OT/Speech/Resp) Filed: 02/14/2022 4:46 PM Note Text: Occupational Therapy Treatment SERVICE DATE: 02/14/2022 SERVICE TIME: 1602 to 1622 ROOM: [id number] Recommended Discharge Disposition: Acute Rehab Recommended Discharge [...] (more content not included)... 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 transfer from [facility] Precautions: Modified Diet;Aspiration Precautions;Dysphagia ;Cognitive Linguistics Deficits;Communicatio n Deficits Reason for Speech Therapy Consult: swallowing and speech evaluation Relevant Past Medical History: DM2, HTN Response to Therapy Interventions: Aspiration Risk, Aphasia, Good Participation in activities Continue skilled AUDITOR TAX services due to : Dysphagia Speech Therapy Problem List: Dysphagia Patient Report: minimal verbalization Current Status Oral Hygiene: Clear, moist oral cavity Dentition: Retains Natural Dentition;Miscellaneo us Missing Teeth Current Feeding Method: Oral Current Diet Textures: Soft and Bite-Sized IDDSI Level 6;Mildly Thick Liquids IDDSI Level 2 (Kenney Thick);Medications whole in puree (pudding/applesauce) Current Level [...] Presented: Mildly Thick Liquids IDDSI Level 2 (Kenney Thick), Pureed IDDSI Level 4 Response to [...] tolerate Mildly Thick Liquids IDDSI Level 2 (Kenney Thick) consistency while utilizing compensatory/swallowi ng strategies given moderate cues in 90% of trials so that the patient will minimize the signs/symptoms of dysphagia. See above 02-14-2022 Patient will tolerate Soft and Bite-Sized IDDSI Level (more content not included)... Normal [facility] Basic metabolic 2000 panelon 02-13-2022 Anion gap [Moles/Vol] 12 mmol/L Normal 9-18 [facility] Comment on above: Order Comment: Speci men Type: BLOOD SPECIMENOrdering Facility: [facility] Address: [address] [place] [address] [place] [address] Performed By: #### 2 4321-2 ####[facility]ATORYCLIA [id number] [address] [place] Calcium [Mass/Vol] 8.6 mg/dL Normal 8.5-10.2 [facility] Comment on above: Order Comment: Speci men Type: BLOOD SPECIMENOrdering Facility: [facility] Address: [address] [place] [address] Performed By: #### 2 4321-2 ####[facility]ATORYCLIA [id number] [place] [address] [place] Chloride [Moles/Vol] 111 mmol/L High 97-105 [facility] Comment on above: Order Comment: Speci men Type: BLOOD SPECIMENOrdering Facility: [facility] Address: [address] [place] [address] Performed By: #### 2 4321-2 ####[facility]ORYCLIA [id number] [address] [place] CO2 [Moles/Vol] 23 mmol/L Normal 22-30 [facility] Comment on above: Order Comment: Speci men Type: BLOOD SPECIMENOrdering Facility: [facility] Address: [address] [place] [address] Performed By: #### 2 4321-2 ####[facility]ORYCLIA [id number] [address] [place] Creatinine [Mass/Vol] 0.70 mg/dL Low 0.73-1.22 [facility] Comment on above: Order Comment: Speci men Type: BLOOD SPECIMENOrdering Facility: [facility] Address: [address] [place] [address] Performed By: #### 2 4321-2 ####[facility]ATORYCLIA [id number] [address] ESTIMATED GLOMERULAR FILTRATION RATE 94 mL/min/1.73m??? Normal >=60 [facility] Comment on above: Order Comment: Speci men Type: BLOOD SPECIMENOrdering Facility: [facility] Address: [address] [place] [address] Result Comment: Ethan mated Glomerular Filtration Rate [...] actual GFR. Performed By: #### 2 4321-2 ####[facility]ATORYCLIA [id number] [place] [address] [place] Glucose [Mass/Vol] 111 mg/dL High 74-99 [facility] Comment on above: Order Comment: Suzanne rivera Type: BLOOD SPECIMENOrdering Facility: [facility] Address: [address] [place], [place] [id number] Result Comment: The [employer] (ADA) provides guidance for cutoff [...] Standards of Medical Care in Diabetes 2016, [employer]. Diabetes Care. 2016.39(Suppl 1). Performed By: #### 2 4321-2 ####[facility]ORYCLIA [id number] [place] [address] [place] Potassium [Moles/Vol] 3.5 mmol/L Low 3.7-5.1 [facility] Comment on above: Order Comment: Suzanne rivera Type: BLOOD SPECIMENOrdering Facility: [facility] Address: [address] [place] [address] Performed By: #### 2 4321-2 ####[facility]ORYCLIA [id number] [address] STATES OF [facility] Sodium [Moles/Vol] 146 mmol/L High 136-144 [facility] Comment on above: Order Comment: Speci men Type: BLOOD SPECIMENOrdering Facility: [facility] Address: [address] [place] [address] Performed By: #### 2 4321-2 ####[facility]ORYCLIA [id number] [address] [place] Urea nitrogen [Mass/Vol] 24 mg/dL Normal 9-24 [facility] Comment on above: Order Comment: Speci men Type: BLOOD SPECIMENOrdering Facility: [facility] Address: [address] [place] [address] Performed By: #### 2 4321-2 ####[facility]ORYCLIA [id number] [address] OF [facility] CBC panel Auto (Bld)on 02-13 Erythrocyte distribution width (RBC) [Ratio] 14.7 % Normal 11.5-15.0 [facility] Comment on above: Order Comment: Speci men Type: BLOOD SPECIMENOrdering Facility: [facility] Address: [address] [place] [address] Performed By: #### 5 8410-2 ####[facility]ORYCLIA [id number] [address] [place] Hematocrit (Bld) [Volume fraction] 23.7 % Low 39.0-51.0 [facility] Comment on above: Order Comment: Speci men Type: BLOOD SPECIMENOrdering Facility: [facility] Address: [address] [place] [address] Performed By: #### 5 8410-2 ####[facility]ATORYCLIA [id number] [address] OF [facility] Hemoglobin (Bld) [Mass/Vol] 7.8 g/dL Low 13.0-17.0 [facility] Comment on above: Order Comment: Speci men Type: BLOOD SPECIMENOrdering Facility: [facility] Address: [address] [address] Performed By: #### 5 8410-2 ####[facility]ATORYCLIA [id number] [address] MCH (RBC) [Entitic mass] 31.6 pg Normal 26.0-34.0 [facility] Comment on above: Order Comment: Speci men Type: BLOOD SPECIMENOrdering Facility: [facility] Address: [address] [place] [address] Performed By: #### 5 8410-2 ####[facility]ATORYCLIA [id number] [address] MCHC (RBC) [Mass/Vol] 32.9 g/dL Normal 30.5-36.0 [facility] Comment on above: Order Comment: Speci men Type: BLOOD SPECIMENOrdering Facility: [facility] Address: [address] [place] [address] Performed By: #### 5 8410-2 ####[facility]ATORYCLIA [id number] [address] MCV (RBC) [Entitic vol] 96.0 fL Normal 80.0-100.0 [facility] Comment on above: Order Comment: Speci men Type: BLOOD SPECIMENOrdering Facility: [facility] Address: [address] [place] [address] Performed By: #### 5 8410-2 ####[facility]ATORYCLIA [id number] [address] Nucleated RBC (Bld) [#/Vol] 0.03 10*3/uL High <0.01 [facility] Comment on above: Order Comment: Speci men Type: BLOOD SPECIMENOrdering Facility: [facility] Address: [address] [place] [address] Performed By: #### 5 8410-2 ####[facility]ORATORYCLIA [id number] [place] [address] [place] Platelet mean volume (Bld) [Entitic vol] 10.3 fL Normal 9.0-12.7 [facility] Comment on above: Order Comment: Speci men Type: BLOOD SPECIMENOrdering Facility: [facility] Address: [address] [place] [address] Performed By: #### 5 8410-2 ####[facility]ORYCLIA [id number] [address] [place] Platelets (Bld) [#/Vol] 248 10*3/uL Normal 150-400 [facility] Comment on above: Order Comment: Speci men Type: BLOOD SPECIMENOrdering Facility: [facility] Address: [address] [place] [address] Performed By: #### 5 8410-2 ####[facility]ORYCLIA [id number] [address] RBC (Bld) [#/Vol] 2.47 10*6/uL Low 4.20-6.00 [facility] Comment on above: Order Comment: Speci men Type: BLOOD SPECIMENOrdering Facility: [facility] Address: [address] [place] [address] Performed By: #### 5 8410-2 ####[facility]ORYCLIA [id number] [address] WBC (Bld) [#/Vol] 7.12 10*3/uL Normal 3.70-11.00 [facility] Comment on above: Order Comment: Speci men Type: BLOOD SPECIMENOrdering Facility: [facility] Address: [address] [place] [address] Performed By: #### 5 8410-2 ####[facility]ORATORYCLIA [id number] [address] NURSING PROGon 02-13-2022 NURSING PROG HNO ID: [id number] Author: Jag Lovett RN Service: ? Author Type: Registered Nurse Type: Nursing Progress Note Filed: 02/13/2022 5:00 PM Note Text: Transfer Note: Patient transferred into room/unit 8107-1 in stable condition. Actions taken: Report given/called to Shari AKERS Normal [facility] THERAPY NTon 02-13-2022 THERAPY NT HNO ID: [id number] Author: Pricilla Camarena, PT Service: Physical Therapy Author Type: Physical Therapist Type: Therapy (PT/OT/Speech/Resp) Filed: 02/13/2022 3:47 PM Note Text: Physical Therapy Treatment SERVICE DATE: 02/13/2022 SERVICE TIME: 1420 to 1448 ROOM: [id number] Recommended Discharge Disposition: Acute Rehab Recommended Discharge [...] (more content not included)... Normal [facility] THERAPY NT HNO ID: [id number] Author: Shelbi Mack, OTR/L Service: Occupational Therapy Author Type: Occupational Therapist Type: Therapy (PT/OT/Speech/Resp) Filed: 02/13/2022 1:32 PM Note Text: Occupational Therapy Evaluation SERVICE DATE: 02/13/2022 SERVICE TIME: 5896 to 1006 ROOM: [place] [address] Recommended Discharge Disposition: Acute Rehab Recommended Discharge Disposition Comments: Pt is currently functioning well below functional baseline at this time and requires increased assist with all ADL's and fucntional transfers. 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 Pt was fully independent SHAMPOO PERSON. Recommending AR once medically stable for dc. [...] (more content not included)... Normal [facility] Basic metabolic 2000 panelon 02-12-2022 Anion gap [Moles/Vol] 9 mmol/L Normal 9-18 [facility] Comment on above: Order Comment: Speci men Type: BLOOD SPECIMENOrdering Facility: [facility] Address: [address] [place] [address] Performed By: #### 2 4321-2, , 2776-05 ####[facility]ORATORYCLIA [id number] [place] [address] [place] Calcium [Mass/Vol] 8.4 mg/dL Low 8.5-10.2 [facility] Comment on above: Order Comment: Speci men Type: BLOOD SPECIMENOrdering Facility: [facility] Address: [address] [place] [address] Performed By: #### 2 4321-2, , 2776-05 ####[facility] LABORATORYCLIA [id number] [place] [address] [place] Chloride [Moles/Vol] 112 mmol/L High 97-105 [facility] Comment on above: Order Comment: Speci men Type: BLOOD SPECIMENOrdering Facility: [facility] Address: [address] [place] [address] Performed By: #### 2 4321-2, , 2776-05 ####[facility] LABORATORYCLIA [id number] [place] [address] [place] CO2 [Moles/Vol] 25 mmol/L Normal 22-30 [facility] Comment on above: Order Comment: Speci men Type: BLOOD SPECIMENOrdering Facility: [facility] Address: [address] [place] [address] Performed By: #### 2 4321-2, , 2776-05 ####[facility] LABORATORYCLIA [id number] [place] [address] [place] Creatinine [Mass/Vol] 0.76 mg/dL Normal 0.73-1.22 [facility] Comment on above: Order Comment: Speci men Type: BLOOD SPECIMENOrdering Facility: [facility] Address: [address] [place] [address] Performed By: #### 2 4321-2, , 2776-05 ####[facility] LABORATORYCLIA [id number] [address] [place] ESTIMATED GLOMERULAR FILTRATION RATE 92 mL/min/1.73m??? Normal >=60 [facility] Comment on above: Order Comment: Suzanne rivera Type: BLOOD SPECIMENOrdering Facility: [facility] Address: [address] [place] [address] Result Comment: Ethan mated Glomerular Filtration Rate [...] Performed By: #### 2 4321-2, , 2776-05 ####[facility] LABORATORYCLIA [id number] [place] [address] [place] Glucose [Mass/Vol] 103 mg/dL High 74-99 [facility] Comment on above: Order Comment: Suzanne rivera Type: BLOOD SPECIMENOrdering Facility: [facility] Address: [address] [place] [address] Result Comment: The [place] Diabetes Association (ADA) provides guidance for cutoff [...] Standards of Medical Care in Diabetes 2016, [place] [employer]. Diabetes Care. 2016.39(Suppl 1). Performed By: #### 2 4321-2, , 2776-05 ####[facility] LABORATORYCLIA [id number] [address] STATES OF [facility] Potassium [Moles/Vol] 3.4 mmol/L Low 3.7-5.1 [facility] Comment on above: Order Comment: Speci men Type: BLOOD SPECIMENOrdering Facility: [facility] Address: [address] [place] [address] Performed By: #### 2 4321-2, , 2776-05 ####[facility] LABORATORYCLIA [id number] [address] STATES OF [facility] Sodium [Moles/Vol] 146 mmol/L High 136-144 [facility] Comment on above: Order Comment: Speci men Type: BLOOD SPECIMENOrdering Facility: [facility] Address: [address] [place] [address] Performed By: #### 2 4321-2, , 2776-05 ####[facility]PITALCLIA [id number] [address] STATES [facility] Urea nitrogen [Mass/Vol] 24 mg/dL Normal 9-24 [facility] Comment on above: Order Comment: Speci men Type: BLOOD SPECIMENOrdering Facility: [facility] Address: [address] [place] [address] Performed By: #### 2 4321-2, , 2776-05 ####[facility] LABORATORYCLIA [id number] [address] CBC panel Auto (Bld)on 02-12 Erythrocyte distribution width (RBC) [Ratio] 14.8 % Normal 11.5-15.0 [facility] Comment on above: Order Comment: Speci men Type: BLOOD SPECIMENOrdering Facility: [facility] Address: [address] [place] [address] Performed By: #### 5 8410-2 ####[facility] LABORATORYCLIA [id number] [address] Hematocrit (Bld) [Volume fraction] 22.2 % Low 39.0-51.0 [facility] Comment on above: Order Comment: Speci men Type: BLOOD SPECIMENOrdering Facility: [facility] Address: [address] [place] [address] Performed By: #### 5 8410-2 ####[facility] LABORATORYCLIA [id number] [address] OF [facility] Hemoglobin (Bld) [Mass/Vol] 7.2 g/dL Low 13.0-17.0 [facility] Comment on above: Order Comment: Speci men Type: BLOOD SPECIMENOrdering Facility: [facility] Address: [address] [place] [address] Performed By: #### 5 8410-2 ####[facility] LABORATORYCLIA [id number] [address] MCH (RBC) [Entitic mass] 31.6 pg Normal 26.0-34.0 [facility] Comment on above: Order Comment: Speci men Type: BLOOD SPECIMENOrdering Facility: [facility] Address: [address] [place] [address] Performed By: #### 5 8410-2 ####[facility] LABORATORYCLIA [id number] [address] [place] MCHC (RBC) [Mass/Vol] 32.4 g/dL Normal 30.5-36.0 [facility] Comment on above: Order Comment: Speci men Type: BLOOD SPECIMENOrdering Facility: [facility] Address: [address] [place] [address] Performed By: #### 5 8410-2 ####[facility] LABORATORYCLIA [id number] [address] MCV (RBC) [Entitic vol] 97.4 fL Normal 80.0-100.0 [facility] Comment on above: Order Comment: Speci men Type: BLOOD SPECIMENOrdering Facility: [facility] Address: [address] Performed By: #### 5 8410-2 ####[facility] LABORATORYCLIA [id number] [address] [place] Nucleated RBC (Bld) [#/Vol] 0.03 10*3/uL High <0.01 [facility] Comment on above: Order Comment: Speci men Type: BLOOD SPECIMENOrdering Facility: [facility] Address: [address] [place] [address] Performed By: #### 5 8410-2 ####[facility] LABORATORYCLIA [id number] [address] OF [place] Platelet mean volume (Bld) [Entitic vol] 10.4 fL Normal 9.0-12.7 [facility] Comment on above: Order Comment: Speci men Type: BLOOD SPECIMENOrdering Facility: [facility] Address: [address] [place] [address] Performed By: #### 5 8410-2 ####[facility]ORATORYCLIA [id number] [address] OF [place] Platelets (Bld) [#/Vol] 207 10*3/uL Normal 150-400 [facility] Comment on above: Order Comment: Speci men Type: BLOOD SPECIMENOrdering Facility: [facility] Address: [address] [place] [address] Performed By: #### 5 8410-2 ####[facility] LABORATORYCLIA [id number] [address] OF [place] RBC (Bld) [#/Vol] 2.28 10*6/uL Low 4.20-6.00 [facility] Comment on above: Order Comment: Speci men Type: BLOOD SPECIMENOrdering Facility: [facility] Address: [address] [place] [address] Performed By: #### 5 8410-2 ####[facility] LABORATORYCLIA [id number] [address] [place] WBC (Bld) [#/Vol] 6.56 10*3/uL Normal 3.70-11.00 [facility] Comment on above: Order Comment: Speci men Type: BLOOD SPECIMENOrdering Facility: [facility] Address: [address] [place] [address] Performed By: #### 5 8410-2 ####[facility] LABORATORYCLIA [id number] [address] ECG COMPLETEon 02-12-2022 ECG COMPLETE Ventricular Rate : 106 BPM QRS Duration : 80 ms Q-T Interval : 338 ms QTC Calculation(Bazett) : 448 ms Calculated R [place] : 16 degrees Calculated T [place] : 7 degrees ATRIAL FLUTTER WITH VARIABLE BLOCK WITH RAPID VENTRICULAR RESPONSE ABNORMAL ECG NO PREVIOUS ECGS AVAILABLE Confirmed by MD AGUILAR VINAY ([id number]) on 02/13/2022 6:18:25 PM NAME : MIRI CAI PID : [id number] : 1945 Gender : Male Race : ORD : [id number] Procedure Date : Feb 12 2022 13:22:07 Edit Date : Feb 13 2022 18:18:28 Diagnosis: ATRIAL FLUTTER WITH VARIABLE BLOCK WITH RAPID VENTRICULAR RESPONSE ABNORMAL ECG NO PREVIOUS ECGS AVAILABLE Confirmed by MD AGUILAR VINAY ([id number]) on 02/13/2022 6:18:25 PM Test Reason : Arrhythmia Location : 1 : [place] [address] Overread By : MD AGUILAR VINAY Edited By : MD AGUILAR VINAY Referred By : , Acquired by : DAX MOSLEY [facility] Magnesium SerPl-mCncon 02-12 Magnesium [Mass/Vol] 2.0 mg/dL Normal 1.7-2.3 [facility] Comment on above: Order Comment: Speci men Type: BLOOD SPECIMENOrdering Facility: [facility] Address: [address] [place] [address] Performed By: #### 2 4321-2, 41934-2, 2777-1 ####[facility] LABORATORYCLIA [id number] [place] [id number] [facility] NUTRITIONon 02-12-2022 NUTRITION HNO ID: [id number] Author: Joceline Parker RD Service: Nutrition Therapy [...] TIME: 11:32 AM 1074 Normal [facility] Phosphate SerPl-mCncon 02-12 Phosphate [Mass/Vol] 2.9 mg/dL Normal 2.7-4.8 [facility] Comment on above: Order Comment: Speci men Type: BLOOD SPECIMENOrdering Facility: [facility] Address: [address] [place] [address] Performed By: #### 2 4321-2, 88191-4, 2777-1 ####[facility] LABORATORYCLIA [id number] [address] OF [facility] THERAPY NTon 02-12-2022 THERAPY NT HNO ID: [id number] Author: Pricilla Camarena PT Service: Physical Therapy Author Type: Physical Therapist Type: Therapy (PT/OT/Speech/Resp) Filed: 02/12/2022 10:29 AM Note Text: Physical Therapy Treatment SERVICE DATE: 02/12/2022 SERVICE TIME: 932 to 1001 ROOM: [id number] ([facility]) Recommended Discharge Disposition: Acute Rehab Recommended [...] (more content not included)... Normal [facility] ALLIED HEALTHon 02-11-2022 ALLIED HEALTH HNO ID: [id number] Author: RT Yolette(R) Service: Radiology Author Type: [...] 11, 2022 1:46 PM Normal [facility] Basic metabolic 2000 panelon 02-11-2022 Anion gap [Moles/Vol] 11 mmol/L Normal 9-18 [facility] Comment on above: Order Comment: Speci men Type: BLOOD SPECIMENOrdering Facility: [facility] Address: [address] [place] [address] Performed By: #### 2 777-1, , ####[facility] LABORATORYCLIA [id number] [place] [address] [place] Calcium [Mass/Vol] 8.5 mg/dL Normal 8.5-10.2 [facility] Comment on above: Order Comment: Speci men Type: BLOOD SPECIMENOrdering Facility: [facility] Address: [address] [place] [address] Performed By: #### 2 777-1, , ####[facility] LABORATORYCLIA [id number] [place] [address] [place] Chloride [Moles/Vol] 110 mmol/L High 97-105 [facility] Comment on above: Order Comment: Speci men Type: BLOOD SPECIMENOrdering Facility: [facility] Address: [address] [place] [address] Performed By: #### 2 777-1, , ####[facility] LABORATORYCLIA [id number] [place] [address] [place] CO2 [Moles/Vol] 25 mmol/L Normal 22-30 [facility] Comment on above: Order Comment: Speci men Type: BLOOD SPECIMENOrdering Facility: [facility] Address: [address] [place] [address] Performed By: #### 2 777-1, , ####[facility]ORATORYCLIA [id number] [place] [address] [place] Creatinine [Mass/Vol] 0.79 mg/dL Normal 0.73-1.22 [facility] Comment on above: Order Comment: Speci men Type: BLOOD SPECIMENOrdering Facility: [facility] Address: [address] [place] [address] Performed By: #### 2 777-1, 02443-4, 95281-1 ####[facility] LABORATORYCLIA [id number] [address] STATES OF [facility] ESTIMATED GLOMERULAR FILTRATION RATE 91 mL/min/1.73m??? Normal >=60 [facility] Comment on above: Order Comment: Suzanne rivera Type: BLOOD SPECIMENOrdering Facility: [facility] Address: [address] [place] [address] Result Comment: Ethan mated Glomerular Filtration Rate [...] GFR. Performed By: #### 2 777-1, , 73838-7 ####[facility] LABORATORYCLIA [id number] [place] [address] [place] Glucose [Mass/Vol] 159 mg/dL High 74-99 [facility] Comment on above: Order Comment: Suzanne rivera Type: BLOOD SPECIMENOrdering Facility: [facility] Address: [address] [place] [address] Result Comment: The [place] Diabetes Association (ADA) provides guidance for cutoff [...] Standards of Medical Care in Diabetes 2016, [place] [employer]. Diabetes Care. 2016.39(Suppl 1). Performed By: #### 2 777-1, , 84992-0 ####[facility] LABORATORYCLIA [id number] [place] [address] [place] Potassium [Moles/Vol] 2.9 mmol/L Low 3.7-5.1 [facility] Comment on above: Order Comment: Speci men Type: BLOOD SPECIMENOrdering Facility: [facility] Address: [address] [place] [address] Performed By: #### 2 777-1, , 03326-2 ####[facility]PITALCLIA [id number] [address] STATES OF [facility] Sodium [Moles/Vol] 146 mmol/L High 136-144 [facility] Comment on above: Order Comment: Speci men Type: BLOOD SPECIMENOrdering Facility: [facility] Address: [address] [place] [address] Performed By: #### 2 777-1, , 83882-8 ####[facility]OSPITALCLIA [id number] [address] STATES [facility] Urea nitrogen [Mass/Vol] 22 mg/dL Normal 9-24 [facility] Comment on above: Order Comment: Speci men Type: BLOOD SPECIMENOrdering Facility: [facility] Address: [address] [place] [address] Performed By: #### 2 777-1, , 25706-7 ####[facility]OSPITALCLIA [id number] [address] STATES OF [facility] CBC panel Auto (Bld)on 02-11 Erythrocyte distribution width (RBC) [Ratio] 14.6 % Normal 11.5-15.0 [facility] Comment on above: Order Comment: Speci men Type: BLOOD SPECIMENOrdering Facility: [facility] Address: [address] [place] [address] Performed By: #### 5 8410-2 ####[facility] LABORATORYCLIA [id number] [address] Hematocrit (Bld) [Volume fraction] 23.8 % Low 39.0-51.0 [facility] Comment on above: Order Comment: Speci men Type: BLOOD SPECIMENOrdering Facility: [facility] Address: [address] [place] [address] Performed By: #### 5 8410-2 ####[facility] LABORATORYCLIA [id number] [address] OF [facility] Hemoglobin (Bld) [Mass/Vol] 7.6 g/dL Low 13.0-17.0 [facility] Comment on above: Order Comment: Speci men Type: BLOOD SPECIMENOrdering Facility: [facility] Address: [address] [place] [address] Performed By: #### 5 8410-2 ####[facility] LABORATORYCLIA [id number] [address] [place] MCH (RBC) [Entitic mass] 31.0 pg Normal 26.0-34.0 [facility] Comment on above: Order Comment: Speci men Type: BLOOD SPECIMENOrdering Facility: [facility] Address: [address] [place] [address] Performed By: #### 5 8410-2 ####[facility] LABORATORYCLIA [id number] [address] [place] MCHC (RBC) [Mass/Vol] 31.9 g/dL Normal 30.5-36.0 [facility] Comment on above: Order Comment: Speci men Type: BLOOD SPECIMENOrdering Facility: [facility] Address: [address] [place] [address] Performed By: #### 5 8410-2 ####[facility] LABORATORYCLIA [id number] [address] MCV (RBC) [Entitic vol] 97.1 fL Normal 80.0-100.[address] [facility] Comment on above: Order Comment: Speci men Type: BLOOD SPECIMENOrdering Facility: [facility] Address: [address] [place] [address] Performed By: #### 5 8410-2 ####[facility] LABORATORYCLIA [id number] [address] Nucleated RBC (Bld) [#/Vol] 10*3/uL Normal <0.01 [facility] Comment on above: Order Comment: Speci men Type: BLOOD SPECIMENOrdering Facility: [facility] Address: [address] [place] [address] Performed By: #### 5 8410-2 ####[facility] LABORATORYCLIA [id number] [address] OF [facility] Platelet mean volume (Bld) [Entitic vol] 10.4 fL Normal 9.0-12.7 [facility] Comment on above: Order Comment: Speci men Type: BLOOD SPECIMENOrdering Facility: [facility] Address: [address] [place] [address] Performed By: #### 5 8410-2 ####[facility] LABORATORYCLIA [id number] [address] Platelets (Bld) [#/Vol] 217 10*3/uL Normal 150-400 [facility] Comment on above: Order Comment: Speci men Type: BLOOD SPECIMENOrdering Facility: [facility] Address: [address] [place] [address] Performed By: #### 5 8410-2 ####[facility]ORATORYCLIA [id number] [address] [place] RBC (Bld) [#/Vol] 2.45 10*6/uL Low 4.20-6.00 [facility] Comment on above: Order Comment: Speci men Type: BLOOD SPECIMENOrdering Facility: [facility] Address: [address] [place] [address] Performed By: #### 5 8410-2 ####[facility] LABORATORYCLIA [id number] [address] [place] WBC (Bld) [#/Vol] 7.61 10*3/uL Normal 3.70-11.00 [facility] Comment on above: Order Comment: Speci men Type: BLOOD SPECIMENOrdering Facility: [facility] Address: [address] [place] [address] Performed By: #### 5 8410-2 ####[facility]ORATORYCLIA [id number] [address] Magnesium SerPl-mCncon 02-11 Magnesium [Mass/Vol] 2.2 mg/dL Normal 1.7-2.3 [facility] Comment on above: Order Comment: Speci men Type: BLOOD SPECIMENOrdering Facility: [facility] Address: [address] [place] [address] Performed By: #### 2 777-1, 05531-4, 03294-4 ####[facility] LABORATORYCLIA [id number] [address] OPERATIVE NOon 02-11-2022 OPERATIVE NO HNO ID: [id number] Author: Roby Alexander MD Service: ? Author Type: Physician Type: Operative Report Filed: 02/20/2022 7:50 PM Note Text: [facility] - Operative Report NEGRITAMIRI CERRATO : 1945 AGE: 76. SEX: M PATIENT TYPE: I HOSP SVC: ICU LOCATION: [facility] ATTENDING PHYSICIAN: RYAN PAL CSN NUMBER: [id number] DATE OF SURGERY/PROCEDURE: 02/07/2022 INCISION/PROCEDURE START TIME: 05:25 p.m. INCISION CLOSE/PROCEDURE END TIME: 06:25 p.m. 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 POSTOPERATIVE DIAGNOSIS: 1. Occlusion of the left internal carotid artery stent. 2. 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 SURGEON: Roby Alexander MD PROFESSIONAL NURSING TUTOR: None. SURGERY/PROCEDURE: Left internal carotid and middle [...] using micropuncture system. After serial dilatation, a 7-British shuttle sheath was advanced with its tip in the descending thoracic aorta. The sheath was flushed and hooked to the heparinized saline flush. Through the shuttle sheath, a 5-British JB1 diagnostic catheter was advanced and selectively [...] (more content not included)... Normal [facility] OPERATIVE NO HNO ID: [id number] Author: Roby Alexander MD Service: ? Author Type: Physician Type: Operative Report Filed: 02/20/2022 7:51 PM Note Text: [facility] - Operative Report MIRI CAI : 1945 AGE: 76. SEX: M PATIENT TYPE: I HOSP SVC: ICU LOCATION: [facility] ATTENDING PHYSICIAN: RYAN PAL CSN NUMBER: [id number] DATE OF SURGERY/PROCEDURE: 02/07/2022 INCISION/PROCEDURE START TIME: 01:35 p.m. INCISION CLOSE/PROCEDURE END TIME: 03:00 p.m. PREOPERATIVE DIAGNOSIS: Left hemispheric stroke. POSTOPERATIVE DIAGNOSIS: Left hemispheric stroke. SURGEON: Roby Alexander MD PROFESSIONAL NURSING TUTOR: None. SURGERY/PROCEDURE: Cerebral angiogram and left MCA [...] for thrombectomy. Patient arrived to our institution plastic manager on February 07. He had surgery on February 06. The patient arrived to us on plastic manager at 1 hour 20 minutes a.m. The [...] using micropuncture system. After serial dilatation, a 7-British shuttle sheath was advanced with its tip in the descending thoracic aorta. The sheath was flushed and hooked to the heparinized saline flush. Through the shuttle sheath, a 5-British JB1 diagnostic catheter was advanced and selectively [...] (more content not included)... Normal [facility] POTASSIUM BLDon 02-11-2022 Potassium [Moles/Vol] 3.7 mmol/L Normal 3.7-5.1 [facility] Comment on above: Order Comment: Suzanne rivera Type: BLOOD SPECIMENOrdering Facility: [facility] Address: [address] [place] [address] Performed By: #### K 1 ####[facility] LABORATORYCLIA [id number] [place] [address] [place] Phosphate SerPl-mCncon 02-11 Phosphate [Mass/Vol] 2.7 mg/dL Normal 2.7-4.8 [facility] Comment on above: Order Comment: Suzanne rivera Type: BLOOD SPECIMENOrdering Facility: [facility] Address: [address] [place] [address] Performed By: #### 2 777-1, 81717-8, 90386-2 ####[facility] LABORATORYCLIA [id number] [place] [address] [place] THERAPY NTon 02-11-2022 THERAPY NT HNO ID: [id number] Author: Verito Cutler CCC-AUDITOR TAX Service: Speech/Swallow Author Type: Speech Language Pathologist Type: Therapy (PT/OT/Speech/Resp) Filed: 02/11/2022 2:55 PM Note Text: Speech Therapy MBSS Evaluation SERVICE DATE: 02/11/2022 SERVICE TIME: 1345 to 1415 ROOM: [id number] ([facility]) IMPRESSION: Evidence of: Oropharyngeal dysphagia - aspiration [...] 6 Mildly Thick Liquids IDDSI Level 2 ([place] Thick) Medications whole in puree (pudding/applesauce) Swallowing [...] Aphasia, Good Participation in activities Continue skilled AUDITOR TAX services due to : Dysphagia Speech Therapy Problem List: Dysphagia Patient Report: minimal verbalization Current Status Oral Hygiene: Clear, moist oral cavity;Oral Health Assessment Tool (OHAT) Dentition: Retains Natural Dentition;Miscellaneo us Missing Teeth Current Feeding Method: Oral Current Diet Textures: Pureed IDDSI Level 4;Mildly Thick Liquids IDDSI Level 2 (Kenney Thick);Medications crushed in puree (pudding/applesauce) Current Level Of Communication: Aphasia;Verbal;[place]rens hria Current Management Of Secretions: Able to [...] Thin Barium Liquids, Mildly Thick Barium Liquids (Kenney Thick), Pureed with Barium Paste, Solid with [...] (more content not included)... Normal [facility] XR MOD BARIUM SWALLOW W SPEE Courtney 02-11-2022 XR MOD BARIUM SWALLOW W SPEECH [...] to speech therapist report for diagnostic discussion Chief Maintenance Supervisor: PSCB Transcribe Date/Time: Feb 11 2022 4:30P Dictated by : INO STEVENSON MD This examination was interpreted and the report reviewed and electronically signed by: INO STEVENSON MD on Feb 11 2022 4:30PM EST [id number] Normal [facility] Basic metabolic 2000 panelon 02-10-2022 Anion gap [Moles/Vol] 9 mmol/L Normal 9-18 [facility] Comment on above: Order Comment: Speci men Type: BLOOD SPECIMENOrdering Facility: [facility] Address: [address] [place] [address] Performed By: #### 2 4321-2, , 2776-05 ####[facility] LABORATORYCLIA [id number] [place] [address] [place] Calcium [Mass/Vol] 8.6 mg/dL Normal 8.5-10.2 [facility] Comment on above: Order Comment: Speci men Type: BLOOD SPECIMENOrdering Facility: [facility] Address: [address] [place] [address] Performed By: #### 2 4321-2, , 2776-05 ####[facility] LABORATORYCLIA [id number] [place] [address] [place] Chloride [Moles/Vol] 109 mmol/L High 97-105 [facility] Comment on above: Order Comment: Speci men Type: BLOOD SPECIMENOrdering Facility: [facility] Address: [address] [place] [address] Performed By: #### 2 4321-2, , 2776-05 ####[facility] LABORATORYCLIA [id number] [place] [address] [place] CO2 [Moles/Vol] 26 mmol/L Normal 22-30 [facility] Comment on above: Order Comment: Speci men Type: BLOOD SPECIMENOrdering Facility: [facility] Address: [address] [place] [address] Performed By: #### 2 4321-2, , 2776-05 ####[facility]IA [id number] [place] [id number] [place] Creatinine [Mass/Vol] 0.70 mg/dL Low 0.73-1.22 [facility] Comment on above: Order Comment: Speci men Type: BLOOD SPECIMENOrdering Facility: [facility] Address: [address] [place] [address] Performed By: #### 2 4321-2, , 2776-05 ####[facility] [id number] [address] [place] ESTIMATED GLOMERULAR FILTRATION RATE 94 mL/min/1.73m??? Normal >=60 [facility] Comment on above: Order Comment: Speci men Type: BLOOD SPECIMENOrdering Facility: [facility] Address: [address] [place] [address] Result Comment: Ethan mated Glomerular Filtration Rate [...] #### 2 4321-2, , 2776-05 ####[facility] [id number] [place] [id number] [place] Glucose [Mass/Vol] 122 mg/dL High 74-99 [facility] Comment on above: Order Comment: Speci men Type: BLOOD SPECIMENOrdering Facility: [facility] Address: [address] [place] [address] Result Comment: The [employer] (ADA) provides guidance for cutoff [...] Standards of Medical Care in Diabetes 2016, [place] [employer]. Diabetes Care. 2016.39(Suppl 1). Performed By: #### 2 4321-2, , 2776-05 ####[facility] LABORATORYCLIA [id number] [place] [address] [place] Potassium [Moles/Vol] 3.1 mmol/L Low 3.7-5.1 [facility] Comment on above: Order Comment: Suzanne rivera Type: BLOOD SPECIMENOrdering Facility: [facility] Address: [address] [place] [address] Performed By: #### 2 4320-2, , 2776-05 ####[facility]ATORYCLIA [id number] [place] [address] [place] Sodium [Moles/Vol] 144 mmol/L Normal 136-144 [facility] Comment on above: Order Comment: Suzanne rivera Type: BLOOD SPECIMENOrdering Facility: [facility] Address: [address] [place] [address] Performed By: #### 2 4321-2, , 2776-05 ####[facility]ATORYCLIA [id number] [place] [address] [place] Urea nitrogen [Mass/Vol] 18 mg/dL Normal 9-24 [facility] Comment on above: Order Comment: Suzanne rivera Type: BLOOD SPECIMENOrdering Facility: [facility] Address: [address] [place] [address] Performed By: #### 2 4321-2, , 2776-05 ####[facility]ORATORYCLIA [id number] [address] CBC panel Auto (Bld)on 02-10 Erythrocyte distribution width (RBC) [Ratio] 14.4 % Normal 11.5-15.0 [facility] Comment on above: Order Comment: Speci men Type: BLOOD SPECIMENOrdering Facility: [facility] Address: [address] [place] [address] Performed By: #### 5 8410-2 ####[facility] LABORATORYCLIA [id number] [address] Hematocrit (Bld) [Volume fraction] 23.9 % Low 39.0-51.0 [facility] Comment on above: Order Comment: Speci men Type: BLOOD SPECIMENOrdering Facility: [facility] Address: [address] [place] [address] Performed By: #### 5 8410-2 ####[facility]ORATORYCLIA [id number] [address] Hemoglobin (Bld) [Mass/Vol] 7.9 g/dL Low 13.0-17.0 [facility] Comment on above: Order Comment: Speci men Type: BLOOD SPECIMENOrdering Facility: [facility] Address: [address] [place] [address] Performed By: #### 5 8410-2 ####[facility] LABORATORYCLIA [id number] [address] MCH (RBC) [Entitic mass] 31.6 pg Normal 26.0-34.0 [facility] Comment on above: Order Comment: Speci men Type: BLOOD SPECIMENOrdering Facility: [facility] Address: [address] [place] [address] Performed By: #### 5 8410-2 ####[facility]ATORYCLIA [id number] [address] [place] MCHC (RBC) [Mass/Vol] 33.1 g/dL Normal 30.5-36.0 [facility] Comment on above: Order Comment: Speci men Type: BLOOD SPECIMENOrdering Facility: [facility] Address: [address] [place] [place] [address] Performed By: #### 5 8410-2 ####[facility] LABORATORYCLIA [id number] [address] MCV (RBC) [Entitic vol] 95.6 fL Normal 80.0-100.0 [facility] Comment on above: Order Comment: Speci men Type: BLOOD SPECIMENOrdering Facility: [facility] Address: [address] [place] [address] Performed By: #### 5 8410-2 ####[facility]ORATORYCLIA [id number] [address] OF [facility] Nucleated RBC (Bld) [#/Vol] 10*3/uL Normal <0.01 [facility] Comment on above: Order Comment: Speci men Type: BLOOD SPECIMENOrdering Facility: [facility] Address: [address] [place] [address] Performed By: #### 5 8410-2 ####[facility]ATORYCLIA [id number] [address] Platelet mean volume (Bld) [Entitic vol] 10.3 fL Normal 9.0-12.7 [facility] Comment on above: Order Comment: Speci men Type: BLOOD SPECIMENOrdering Facility: [facility] Address: [address] [place] [address] Performed By: #### 5 8410-2 ####[facility]ORATORYCLIA [id number] [address] Platelets (Bld) [#/Vol] 200 10*3/uL Normal 150-400 [facility] Comment on above: Order Comment: Speci men Type: BLOOD SPECIMENOrdering Facility: [facility] Address: [address] [place] [address] Performed By: #### 5 8410-2 ####[facility]ORATORYCLIA [id number] [address] [place] RBC (Bld) [#/Vol] 2.50 10*6/uL Low 4.20-6.00 [facility] Comment on above: Order Comment: Speci men Type: BLOOD SPECIMENOrdering Facility: [facility] Address: [address] [place] [address] Performed By: #### 5 8410-2 ####[facility]ORATORYCLIA [id number] [place] [address] [place] WBC (Bld) [#/Vol] 7.81 10*3/uL Normal 3.70-11.00 [facility] Comment on above: Order Comment: Speci men Type: BLOOD SPECIMENOrdering Facility: [facility] Address: [address] [place] [address] Performed By: #### 5 8410-2 ####[facility]ORATORYCLIA [id number] [address] Magnesium SerPl-mCncon 02-10 Magnesium [Mass/Vol] 2.0 mg/dL Normal 1.7-2.3 [facility] Comment on above: Order Comment: Speci men Type: BLOOD SPECIMENOrdering Facility: [facility] Address: [address] [place] [address] Performed By: #### 2 4321-2, 33380-6, 2777-1 ####[facility]ATORYCLIA [id number] [address] [place] Phosphate SerPl-mCncon 02-10 Phosphate [Mass/Vol] 2.3 mg/dL Low 2.7-4.8 [facility] Comment on above: Order Comment: Speci men Type: BLOOD SPECIMENOrdering Facility: [facility] Address: [address] [place] [address] Performed By: #### 2 4321-2, 34089-8, 2777-1 ####[facility]ATORYCLIA [id number] [address] ALLIED HEALTHon 02-09-2022 ALLIED HEALTH HNO ID: [id number] Author: RT Tracey(Yogesh) Service: ? Author Type: [...] 09, 2022 3:20 PM Normal [facility] Basic metabolic 2000 panelon 02-09-2022 Anion gap [Moles/Vol] 11 mmol/L Normal 9-18 [facility] Comment on above: Order Comment: Speci miguel Type: BLOOD SPECIMENOrdering Facility: [facility] Address: [address] [place] [address] Performed By: #### 2 777-1, 93052-8, ####[facility]ATORYCLIA [id number] [place] [address] [place] Calcium [Mass/Vol] 8.6 mg/dL Normal 8.5-10.2 [facility] Comment on above: Order Comment: Speci men Type: BLOOD SPECIMENOrdering Facility: [facility] Address: [address] [place] [address] Performed By: #### 2 777-1, 89993-1, ####[facility]ORATORYCLIA [id number] [place] [address] [place] Chloride [Moles/Vol] 109 mmol/L High 97-105 [facility] Comment on above: Order Comment: Speci men Type: BLOOD SPECIMENOrdering Facility: [facility] Address: [address] [place] [address] Performed By: #### 2 777-1, , ####[facility]ORATORYCLIA [id number] [address] OF [facility] CO2 [Moles/Vol] 23 mmol/L Normal 22-30 [facility] Comment on above: Order Comment: Speci men Type: BLOOD SPECIMENOrdering Facility: [facility] Address: [address] [place] [address] Performed By: #### 2 777-1, , ####[facility]ORATORYCLIA [id number] [address] Creatinine [Mass/Vol] 0.73 mg/dL Normal 0.73-1.22 [facility] Comment on above: Order Comment: Speci men Type: BLOOD SPECIMENOrdering Facility: [facility] Address: [address] [place] [address] Performed By: #### 2 777-1, , ####[facility]ITALCLIA [id number] [address] ESTIMATED GLOMERULAR FILTRATION RATE 93 mL/min/1.73m??? Normal >=60 [facility] Comment on above: Order Comment: Speci men Type: BLOOD SPECIMENOrdering Facility: [facility] Address: [address] [place] [address] Result Comment: Ethan mated Glomerular Filtration Rate [...] GFR. Performed By: #### 2 777-1, , ####[facility]ATORYCLIA [id number] [place] [address] [place] Glucose [Mass/Vol] 125 mg/dL High 74-99 [facility] Comment on above: Order Comment: Speci men Type: BLOOD SPECIMENOrdering Facility: [facility] Address: [address] [place] [address] Result Comment: The [employer] (ADA) provides guidance for cutoff [...] Standards of Medical Care in Diabetes 2016, [employer]. Diabetes Care. 2016.39(Suppl 1). Performed By: #### 2 777-1, , ####[facility]ITALCLIA [id number] [place] [address] [place] Potassium [Moles/Vol] 3.9 mmol/L Normal 3.7-5.1 [facility] Comment on above: Order Comment: Speci men Type: BLOOD SPECIMENOrdering Facility: [facility] Address: [address] [place], [place] [id number] Performed By: #### 2 777-1, , ####[facility]ATORYCLIA [id number] [place] [address] [place] Sodium [Moles/Vol] 143 mmol/L Normal 136-144 [facility] Comment on above: Order Comment: Speci men Type: BLOOD SPECIMENOrdering Facility: [facility] Address: [address] [place], [place] [id number] Performed By: #### 2 777-1, , ####[facility]ATORYCLIA [id number] [address] STATES [facility] Urea nitrogen [Mass/Vol] 18 mg/dL Normal 9-24 [facility] Comment on above: Order Comment: Speci men Type: BLOOD SPECIMENOrdering Facility: [facility] Address: [address] [place] [address] Performed By: #### 2 777-1, 37550-3, 32729-9 ####[facility]ATORYCLIA [id number] [address] CBC panel Auto (Bld)on 02-09 Erythrocyte distribution width (RBC) [Ratio] 14.5 % Normal 11.5-15.0 [facility] Comment on above: Order Comment: Speci men Type: BLOOD SPECIMENOrdering Facility: [facility] Address: [address] [place] [address] Performed By: #### 5 8410-2 ####[facility]ORATORYCLIA [id number] [address] Hematocrit (Bld) [Volume fraction] 24.5 % Low 39.0-51.0 [facility] Comment on above: Order Comment: Speci men Type: BLOOD SPECIMENOrdering Facility: [facility] Address: [address] [place] [address] Performed By: #### 5 8410-2 ####[facility]ATORYCLIA [id number] [address] Hemoglobin (Bld) [Mass/Vol] 8.1 g/dL Low 13.0-17.0 [facility] Comment on above: Order Comment: Speci men Type: BLOOD SPECIMENOrdering Facility: [facility] Address: [address] [place] [address] Performed By: #### 5 8410-2 ####[facility]ORATORYCLIA [id number] [address] [place] MCH (RBC) [Entitic mass] 30.8 pg Normal 26.0-34.0 [facility] Comment on above: Order Comment: Speci men Type: BLOOD SPECIMENOrdering Facility: [facility] Address: [address] [place] [address] Performed By: #### 5 8410-2 ####[facility]ORATORYCLIA [id number] [address] MCHC (RBC) [Mass/Vol] 33.1 g/dL Normal 30.5-36.0 [facility] Comment on above: Order Comment: Speci men Type: BLOOD SPECIMENOrdering Facility: [facility] Address: [address] [place] [address] Performed By: #### 5 8410-2 ####[facility]ORATORYCLIA [id number] [address] MCV (RBC) [Entitic vol] 93.2 fL Normal 80.0-100.0 [facility] Comment on above: Order Comment: Speci men Type: BLOOD SPECIMENOrdering Facility: [facility] Address: [address] [place] [address] Performed By: #### 5 8410-2 ####[facility]ORATORYCLIA [id number] [address] Nucleated RBC (Bld) [#/Vol] 10*3/uL Normal <0.01 [facility] Comment on above: Order Comment: Speci men Type: BLOOD SPECIMENOrdering Facility: [facility] Address: [address] [place] [address] Performed By: #### 5 8410-2 ####[facility]ATORYCLIA [id number] [address] Platelet mean volume (Bld) [Entitic vol] 10.5 fL Normal 9.0-12.7 [facility] Comment on above: Order Comment: Speci men Type: BLOOD SPECIMENOrdering Facility: [facility] Address: [address] [place] [address] Performed By: #### 5 8410-2 ####[facility]ATORYCLIA [id number] [address] OF [facility] Platelets (Bld) [#/Vol] 170 10*3/uL Normal 150-400 [facility] Comment on above: Order Comment: Specharjit rivera Type: BLOOD SPECIMENOrdering Facility: [facility] Address: [address] [place] [address] Performed By: #### 5 8410-2 ####[facility]ORATORYCLIA [id number] [address] OF [facility] RBC (Bld) [#/Vol] 2.63 10*6/uL Low 4.20-6.00 [facility] Comment on above: Order Comment: Parveeni men Type: BLOOD SPECIMENOrdering Facility: [facility] Address: [address] [place] [address] Performed By: #### 5 8410-2 ####[facility]ORATORYCLIA [id number] [address] WBC (Bld) [#/Vol] 10.17 10*3/uL Normal 3.70-11.00 [facility] Comment on above: Order Comment: Suzanne rivera Type: BLOOD SPECIMENOrdering Facility: [facility] Address: [address] [place] [address] Performed By: #### 5 8410-2 ####[facility]ORATORYCLIA [id number] [address] DIGOXIN/LANOXINon 02-09-2022 Digoxin [Mass/Vol] 0.8 ng/mL Normal 0.5-1.0 [facility] Comment on above: Order Comment: Speci men Type: BLOOD SPECIMENOrdering Facility: [facility] Address: [address] [place] [address] Result Comment: Prov ided therapeutic concentrations are based on the 2008 ESC Guidelines for the Diagnosis and Treatment of Acute and Chronic Heart Failure. Reference ranges and high/low indicator flags are provided as general guidelines only. The treating physician must determine appropriate target levels/dosing based on the specific clinical situation. Performed By: #### D IG ####[facility] LABORATORYCLIA [id number] [place] [address] [place] MRI BRAIN WO IVCONon 02-09-2 022 MRI BRAIN WO IVCON * * *Final Report* * * DATE OF EXAM: Feb 09 2022 4:44PM NIALL 0294 - MRI BRAIN WO IVCON / [...] the supratentorial white matter. Mild general atrophy. Chief Maintenance Supervisor: EMMA Transcribe Date/Time: Feb 09 2022 4:46P Dictated by : JAYDEN LEVINE MD This examination was interpreted and the report reviewed and electronically signed by: JAYDEN LEVINE MD on Feb 09 2022 4:59PM EST [id number] Normal [facility] Magnesium SerPl-mCncon 02-09 Magnesium [Mass/Vol] 2.0 mg/dL Normal 1.7-2.3 [facility] Comment on above: Order Comment: Suzanne rivera Type: BLOOD SPECIMENOrdering Facility: [facility] Address: [address] [place] [address] Performed By: #### 2 777-1, 92943-0, 81671-6 ####[facility] [id number] [address] Phosphate SerPl-mCncon 02-09 Phosphate [Mass/Vol] 1.9 mg/dL Low 2.7-4.8 [facility] Comment on above: Order Comment: Suzanne rivera Type: BLOOD SPECIMENOrdering Facility: [facility] Address: [address] [place] [address] Performed By: #### 2 777-1, 67243-0, 55914-1 ####[facility]ITALCLIA [id number] [address] [place] THERAPY NTon 02-09-2022 THERAPY NT HNO ID: [id number] Author: Hedy Diallo CCC-AUDITOR TAX Service: Speech/Swallow Author Type: Speech Language Pathologist Type: Therapy (PT/OT/Speech/Resp) Filed: 02/09/2022 8:17 AM Note Text: SPEECH THERAPY MISSED VISIT SERVICE DATE: 02/09/2022 SERVICE TIME: 0817 to 0817 ROOM: [place] [address] Patient not seen due to Other: See Comment. Aware of Modified Barium Swallow Study order. Will complete as scheduled. SIGNATURE: Hedy Diallo CCC-AUDITOR TAX PATIENT NAME: Miri Cai DATE: February 09, 2022 TIME: 8:17 AM [facility] HNO ID: [id number] Author: Mari Jenkins RT(R) Service: Radiology Author Type: Technologist Type: [facility] Filed: 02/08/2022 2:42 PM Note [...] Xie RT(R) February 08, 2022 2:41 PM Normal [facility] HNO ID: [id number] Author: Claudia Meeks RT(R) Service: Radiology Author Type: Technologist Type: [facility] Filed: 02/08/2022 9:31 AM Note Text: Radiology [...] PERIPHERAL IV DATA: Not applicable SIGNED BY: DebbyRT Michael(R) February 08, 2022 9:30 AM [facility] HNO ID: [id number] Author: RT Lara(Yogesh) Service: Radiology Author Type: Technologist Type: Allied [...] RT Lara(R) February 08, 2022 7:28 AM [facility] HNO ID: [id number] Author: RT Chelly(Yogesh) Service: ? Author Type: Technologist Type: [facility] Filed: 02/07/2022 10:47 PM Note Text: [...] RT Chelly(R) February 07, 2022 10:47 PM [facility] ASPIRIN/CLOPIDOGREL RESISTAN CEon 02-08-2022 Platelet aggregation ADP induced High dose (PRP) [Rel units/Vol] 7 % Max Low 65-93 [facility] Comment on above: Order Comment: Speci men Type: BLOOD SPECIMENOrdering Facility: [facility] Address: [address] [place], [place] [address] Performed By: #### A SPCLP ####[facility] LABCLIA [id number] [place] [address] [place] Platelet aggregation arachidonate induced 500 ug/mL (PRP) [Rel units/Vol] 12 % Max Low 75-100 [facility] Comment on above: Order Comment: Speci men Type: BLOOD SPECIMENOrdering Facility: [facility] Address: [address] [place], [place] [address] Performed By: #### A SPCLP ####[facility] LABCLIA [id number] [place] [address] [place] Basic metabolic 2000 panelon 02-08-2022 Anion gap [Moles/Vol] 12 mmol/L Normal 9-18 [facility] Comment on above: Order Comment: Speci men Type: BLOOD SPECIMENOrdering Facility: [facility] Address: [address] [place], [place] [address] Performed By: #### 2 4321-2, 2777, ####[facility]ITALCLIA [id number] [place] [address] [place] Calcium [Mass/Vol] 8.2 mg/dL Low 8.5-10.2 [facility] Comment on above: Order Comment: Speci men Type: BLOOD SPECIMENOrdering Facility: [facility] Address: [address] [place], [place] [address] Performed By: #### 2 4321-2, 2777-1, ####[facility] LABORATORYCLIA [id number] [place] [address] [place] Chloride [Moles/Vol] 108 mmol/L High 97-105 [facility] Comment on above: Order Comment: Speci men Type: BLOOD SPECIMENOrdering Facility: [facility] Address: [address] [place], [place] [address] Performed By: #### 2 4321-2, 2776-05, ####[facility]ITALCLIA [id number] [place] [address] [place] CO2 [Moles/Vol] 22 mmol/L Normal 22-30 [facility] Comment on above: Order Comment: Speci men Type: BLOOD SPECIMENOrdering Facility: [facility] Address: [address] [place] [address] Performed By: #### 2 4321-2, 2776-05, ####[facility]ITALCLIA [id number] [address] STATES OF [facility] Creatinine [Mass/Vol] 0.93 mg/dL Normal 0.73-1.22 [facility] Comment on above: Order Comment: Speci men Type: BLOOD SPECIMENOrdering Facility: [facility] Address: [address] [place] [address] Performed By: #### 2 4321-2, 2776-05, ####[facility] [id number] [address] ESTIMATED GLOMERULAR FILTRATION RATE 84 mL/min/1.73m??? Normal >=60 [facility] Comment on above: Order Comment: Speci men Type: BLOOD SPECIMENOrdering Facility: [facility] Address: [address] [place] [address] Result Comment: Ethan mated Glomerular Filtration Rate [...] actual GFR. Performed By: #### 2 4321-2, 2777-, ####[facility] LABORATORYCLIA [id number] [place] [address] [place] Glucose [Mass/Vol] 137 mg/dL High 74-99 [facility] Comment on above: Order Comment: Suzanne rivera Type: BLOOD SPECIMENOrdering Facility: [facility] Address: [address] [place], [place] [address] Result Comment: The [place] [employer] Association (ADA) provides guidance for cutoff [...] Standards of Medical Care in Diabetes 2016, [place] [employer]. Diabetes Care. 2016.39(Suppl 1). Performed By: #### 2 4321-2, 2776-05, ####[facility] LABORATORYCLIA [id number] [place] [address] [place] Potassium [Moles/Vol] 4.1 mmol/L Normal 3.7-5.1 [facility] Comment on above: Order Comment: Suzanne rivera Type: BLOOD SPECIMENOrdering Facility: [facility] Address: [address] [place], [place] [id number] Performed By: #### 2 4321-2, 2776-05, ####[facility] LABORATORYCLIA [id number] [place] [address] [place] Sodium [Moles/Vol] 142 mmol/L Normal 136-144 [facility] Comment on above: Order Comment: Suzanne rivera Type: BLOOD SPECIMENOrdering Facility: [facility] Address: [address] [place], [place] [phone] Performed By: #### 2 4321-2, 27711-09, ####[facility] LABORATORYCLIA [id number] [place] [address] [place] Urea nitrogen [Mass/Vol] 24 mg/dL Normal 9-24 [facility] Comment on above: Order Comment: Speci men Type: BLOOD SPECIMENOrdering Facility: [facility] Address: [address] [place] [address] Performed By: #### 2 4321-2, 2777-1, 30942-5 ####[facility] LABORATORYCLIA [id number] [address] STATES OF [facility] CBC panel Auto (Bld)on 02-08 Erythrocyte distribution width (RBC) [Ratio] 14.5 % Normal 11.5-15.0 [facility] Comment on above: Order Comment: Speci men Type: BLOOD SPECIMENOrdering Facility: [facility] Address: [address] [place] [address] Performed By: #### 5 8410-2 ####[facility] LABORATORYCLIA [id number] [address] STATES OF [facility] Hematocrit (Bld) [Volume fraction] 25.8 % Low 39.0-51.0 [facility] Comment on above: Order Comment: Speci men Type: BLOOD SPECIMENOrdering Facility: [facility] Address: [address] [place] [address] Performed By: #### 5 8410-2 ####[facility] LABORATORYCLIA [id number] [address] OF [facility] Hemoglobin (Bld) [Mass/Vol] 8.5 g/dL Low 13.0-17.0 [facility] Comment on above: Order Comment: Speci men Type: BLOOD SPECIMENOrdering Facility: [facility] Address: [address] [place] [address] Performed By: #### 5 8410-2 ####[facility] LABORATORYCLIA [id number] [address] STATES [facility] MCH (RBC) [Entitic mass] 30.7 pg Normal 26.0-34.0 [facility] Comment on above: Order Comment: Speci men Type: BLOOD SPECIMENOrdering Facility: [facility] Address: [address] [place] [address] Performed By: #### 5 8410-2 ####[facility] LABORATORYCLIA [id number] [address] MCHC (RBC) [Mass/Vol] 32.9 g/dL Normal 30.5-36.0 [facility] Comment on above: Order Comment: Speci men Type: BLOOD SPECIMENOrdering Facility: [facility] Address: [address] [place] [address] Performed By: #### 5 8410-2 ####[facility] LABORATORYCLIA [id number] [address] MCV (RBC) [Entitic vol] 93.1 fL Normal 80.0-100.0 [facility] Comment on above: Order Comment: Speci men Type: BLOOD SPECIMENOrdering Facility: [facility] Address: [address] [place] [address] Performed By: #### 5 8410-2 ####[facility] LABORATORYCLIA [id number] [address] Nucleated RBC (Bld) [#/Vol] 10*3/uL Normal <0.01 [facility] Comment on above: Order Comment: Speci men Type: BLOOD SPECIMENOrdering Facility: [facility] Address: [address] [place] [address] Performed By: #### 5 8410-2 ####[facility] LABORATORYCLIA [id number] [address] Platelet mean volume (Bld) [Entitic vol] 10.6 fL Normal 9.0-12.7 [facility] Comment on above: Order Comment: Speci men Type: BLOOD SPECIMENOrdering Facility: [facility] Address: [address] [place] [address] Performed By: #### 5 8410-2 ####[facility] LABORATORYCLIA [id number] [address] [place] Platelets (Bld) [#/Vol] 145 10*3/uL Low 150-400 [facility] Comment on above: Order Comment: Speci men Type: BLOOD SPECIMENOrdering Facility: [facility] Address: [address] [place] [address] Performed By: #### 5 8410-2 ####[facility] LABORATORYCLIA [id number] [place] [address] [place] RBC (Bld) [#/Vol] 2.77 10*6/uL Low 4.20-6.00 [facility] Comment on above: Order Comment: Speci men Type: BLOOD SPECIMENOrdering Facility: [facility] Address: [address] [place] [address] Performed By: #### 5 8410-2 ####[facility]ORATORYCLIA [id number] [address] [place] WBC (Bld) [#/Vol] 7.57 10*3/uL Normal 3.70-11.00 [facility] Comment on above: Order Comment: Speci men Type: BLOOD SPECIMENOrdering Facility: [facility] Address: [address] [place] [address] Performed By: #### 5 8410-2 ####[facility] LABORATORYCLIA [id number] [address] [place] ABD/PEL WO IVCONon 2021 CT ABD/PEL WO IVCON * * *Final Report* * * DATE OF EXAM: Feb 08 2022 3:09PM [facility] 0531 - CT ABD/PEL WO IVCON / [...] left inguinal hernia repair. Lower thorax: Unremarkable. Mathematics Instructor (topogram) images: No additional findings. IMPRESSION: Within the limits of a noncontrast examination, there is no acute process. Specifically, there is no evidence for retroperitoneal hematoma as questioned. Chief Maintenance Supervisor: EMMA Transcribe Date/Time: Feb 08 2022 3:15P Dictated by : RADHA INTERIANO MD This examination was interpreted and the report reviewed and electronically signed by: RADHA INTERIANO MD on Feb 08 2022 3:19PM EST [id number] N Normal [facility] CT BRAIN WO IVCONon 02-09-20 CT BRAIN WO IVCON * * *Final Report* * * DATE OF EXAM: Feb 07 2022 10:48PM [facility] 0504 - CT BRAIN WO IVCON / [...] Employed: [employer] COMPARISON: Same day. RESULT: Mathematics Instructor (topogram) images: No additional findings. Post-operative change: [...] contrast staining in the left globus pallidus. Chief Maintenance Supervisor: EMMA Transcribe Date/Time: Feb 07 2022 11:16P Dictated by : CRICKET RODRIGUEZ MD This examination was interpreted and the report reviewed and electronically signed by: CRICKET RODRIGUEZ MD on Feb 07 2022 11:22PM EST [id number] N Normal [facility] Hgb Bld-mCncon 02-08-2022 Hemoglobin (Bld) [Mass/Vol] 8.0 g/dL Low 13.0-17.0 [facility] Comment on above: Order Comment: Suzanne rivera Type: BLOOD SPECIMENOrdering Facility: [facility] Address: [address] [place] [address] Performed By: #### 7 18-7 ####[facility]ORATORYCLIA [id number] [place] [address] [place] Magnesium SerPl-ncon 02-08 Magnesium [Mass/Vol] 2.1 mg/dL Normal 1.7-2.3 [facility] Comment on above: Order Comment: Suzanne rivera Type: BLOOD SPECIMENOrdering Facility: [facility] Address: [address] [place] [address] Performed By: #### 2 4321-2, 2777-1, 30078-9 ####[facility]ITALCLIA [id number] [address] STATES OF [facility] NUTRITIONon 02-08-2022 NUTRITION HNO ID: [id number] Author: Joceline Parker RD Service: Nutrition Therapy [...] facial droop. Hx of Atrial flutter, HTN, TN, T2DM. PAST MEDICAL HISTORY Diagnosis Date Arrhythmia Diabetes mellitus (HCC) Essential hypertension PAST SURGICAL HISTORY Procedure Laterality Date NON-MELANOMA SKIN CANCER TUMOR BOARD [facility] 10/2021 REMV CATARACT EXTRACAP,INSERT LENS [...] minutes SIGNATURE: Joceline Parker RD PATIENT NAME: Mrii Cai DATE: February 08, 2022 TIME: 3:13 PM 1074 Normal [facility] Phosphate SerPl-mCncon 02-08 Phosphate [Mass/Vol] 2.7 mg/dL Normal 2.7-4.8 [facility] Comment on above: Order Comment: Speci men Type: BLOOD SPECIMENOrdering Facility: [facility] Address: [address] [place], [place] [phone] Performed By: #### 2 4321-2, 2777-1, 75598-5 ####[facility]ORATORYCLIA [id number] [place] [address] [place] THERAPY NTon 02-08-2022 THERAPY NT HNO ID: [id number] Author: Álvaro Ritter, PT Service: Physical Therapy Author Type: Physical Therapist Type: Therapy (PT/OT/Speech/Resp) Filed: 02/08/2022 10:44 AM Note Text: Physical Therapy Evaluation SERVICE DATE: 02/08/2022 SERVICE TIME: 930 to 955 ROOM: [place] [address] Recommended Discharge Disposition: Acute Rehab Recommended Discharge [...] Comments: (L) LE grossly WFL. Fair (L) bell staff, elbow/shoulder not assessed due to recent (L) TSA Right Shoulder Elevation Strength: 0 Right Elbow Flexion Strength: 2 Right Elbow Extension Strength: 2 Right Wrist Strength: 1 Right Professional Wrestler Strength: 1 Right Hip Flexion Strength: 1 [...] (more content not included)... Normal [facility] US CAROTID LTon 02-08-2022 US CAROTID LT * * *Final Report* * * DATE OF EXAM: Feb 08 2022 3:19PM A2U 1098 - US CAROTID LT / PROCEDURE REASON: Stroke, LT ICA stent occluded. * * * * Physician Interpretation * * * * Non-Invasive Vascular Laboratory [facility] Carotid Duplex Unilateral - Left Date of service/time: 02/08/2022 2:34:00 PM [facility] Name: MIRI CAI Date of : [...] Patent and antegrade flow noted. Technologist: Shy Rneteria T Ordering physician: ROBY ALEXANDER Interpreting physician: Anirudh Bryant MD Final RP Chief Maintenance Supervisor: JAY Transcribe Date/Time: Feb 08 2022 2:34P Dictated by : ANIRUDH BRYANT MD This examination was interpreted and the report reviewed and electronically signed by: ANIRUDH BRYANT MD on Feb 08 2022 3:46PM EST [id number] N Normal [facility] XR CHEST 1V FRONTALon 2021 XR [...] complications. There is no acute process otherwise. Chief Maintenance Supervisor: EMMA Transcribe Date/Time: Feb 08 2022 2:46P Dictated by : RADHA INTERIANO MD This examination was interpreted and the report reviewed and electronically signed by: RADHA INTEIRANO MD on Feb 08 2022 2:47PM EST [id number] N Normal [facility] XR SHLDR >/=3V AP/GEMA AP/OTH R [...] tissues are unremarkable. IMPRESSION: Satisfactory postoperative appearance. Chief Maintenance Supervisor: PSCB Transcribe Date/Time: Feb 08 2022 9:36A Dictated by : RADHA INTERIANO MD This examination was interpreted and the report reviewed and electronically signed by: RADHA INTERIANO MD on Feb 08 2022 9:37AM EST [id number] N Normal [facility] ALLIED HEALTHon 02-07-2022 ALLIED HEALTH HNO ID: [id number] Author: RT Ligia(R) Service: Radiology Author Type: [...] RT Ligia(R) February 07, 2022 4:45 PM Normal [facility] ANES POSTPROC EVALon 022 ANES POSTPROC EVAL HNO ID: [id number] Author: Tip Aparicio MD Service: Anesthesiology Author Type: Physician Type: Anesthesia Postprocedure Evaluation Filed: 02/07/2022 7:42 AM Note Text: POST ANESTHESIA EVALUATION NOTE : 1945 Procedure Summary Date: 02/07/22 Room / Location: [place] NE[facility] IR / [place] [facility] [place] Anesthesia Start: 134 Anesthesia Stop: [...] February 07, 2022 TIME: 7:42 AM CSN: [id number] [facility] ANES PRE-OPon 02-07-2022 ANES PRE-OP HNO ID: [id number] Author: Tip Aparicio MD Service: Anesthesiology Author [...] NEURO-PSYCH (+) Acute ischemic left MCA stroke ([facility]) (+) Hx of atrial flutter I - [...] February 07, 2022 TIME: 7:41 AM CSN: [id number] [facility] BRIEF OP NOTon 02-07-2022 BRIEF OP NOT HNO ID: [id number] Author: Roby Alexander MD Service: ? Author Type: Physician Type: Brief Op Note Filed: 02/07/2022 2:44 AM Note Text: BRIEF OPERATIVE / PROCEDURE NOTE LOG ID: [id number] SURGERY/PROCEDURE DATE: 02/07/2022 INCISION/PROCEDURE START TIME: INCISION CLOSE/PROCEDURE END TIME: SURGEON(S)/PROCEDURAL IST(S) AND PROFESSIONAL NURSING TUTOR(S): Surgeon(s) and Role: * Roby Alexander MD [...] DATE: February 07, 2022 TIME: 2:42 AM [facility] CBC W Auto Differential pane l (Bld)on 02-07-2022 Basophils (Bld) [#/Vol] 10*3/uL Normal <0.[address] [facility] Comment on above: Order Comment: Speci men Type: BLOOD SPECIMENOrdering Facility: [facility] Address: [address] [place] [address] Performed By: #### 5 7021-8 ####[place] [facility]ORYCLIA [id number] [address] [place] Basophils/100 WBC (Bld) 0.2 % Normal A [facility] Comment on above: Order Comment: Speci men Type: BLOOD SPECIMENOrdering Facility: [facility] Address: [address] [place] [address] Performed By: #### 5 7021-8 ####[place] [facility]ORYCLIA [id number] [address] [place] Differential cell count method Nom (Bld) Auto Normal [facility] Comment on above: Order Comment: Speci men Type: BLOOD SPECIMENOrdering Facility: [facility] Address: [address] [place] [address] Performed By: #### 5 7021-8 ####[facility] LABORATORYCLIA [id number] [address] [place] Eosinophils (Bld) [#/Vol] 10*3/uL Normal <0.46 [facility] Comment on above: Order Comment: Speci men Type: BLOOD SPECIMENOrdering Facility: [facility] Address: [address] [place] [address] Performed By: #### 5 7021-8 ####[place] [facility]ORYCLIA [id number] [address] [place] Eosinophils/100 WBC (Bld) 0.0 % Normal [facility] Comment on above: Order Comment: Speci men Type: BLOOD SPECIMENOrdering Facility: [facility] Address: [address] [place] [address] Performed By: #### 5 7021-8 ####[place] [facility]ORYCLIA [id number] [address] OF [facility] Erythrocyte distribution width (RBC) [Ratio] 14.3 % Normal 11.5-15.0 [facility] Comment on above: Order Comment: Speci men Type: BLOOD SPECIMENOrdering Facility: [facility] Address: [address] [place] [address] Performed By: #### 5 7021-8 ####[facility] LABORATORYCLIA [id number] [address] [place] Hematocrit (Bld) [Volume fraction] 33.9 % Low 39.0-51.0 [facility] Comment on above: Order Comment: Speci men Type: BLOOD SPECIMENOrdering Facility: [facility] Address: [address] [place] [address] Performed By: #### 5 7021-8 ####[facility] LABORATORYCLIA [id number] [address] STATES OF [facility] Hemoglobin (Bld) [Mass/Vol] 11.2 g/dL Low 13.0-17.0 [facility] Comment on above: Order Comment: Speci men Type: BLOOD SPECIMENOrdering Facility: [facility] Address: [address] [place] [address] Performed By: #### 5 7021-8 ####[facility] LABORATORYCLIA [id number] [address] OF [facility] IMMATURE GRAN % 0.2 % Normal [facility] Comment on above: Order Comment: Speci men Type: BLOOD SPECIMENOrdering Facility: [facility] Address: [address] [place] [address] Performed By: #### 5 7021-8 ####[facility]ORATORYCLIA [id number] [address] IMMATURE GRAN ABS <0.03 Normal <0.10 [facility] Comment on above: Order Comment: Speci men Type: BLOOD SPECIMENOrdering Facility: [facility] Address: [address] [place] [address] Performed By: #### 5 7021-8 ####[facility]ORATORYCLIA [id number] [address] Lymphocytes (Bld) [#/Vol] 1.00 10*3/uL Normal 1.00-4.00 [facility] Comment on above: Order Comment: Speci men Type: BLOOD SPECIMENOrdering Facility: [facility] Address: [address] [place] [address] Performed By: #### 5 7021-8 ####[facility] LABORATORYCLIA [id number] [address] Lymphocytes/100 WBC (Bld) 9.7 % Normal [facility] Comment on above: Order Comment: Speci men Type: BLOOD SPECIMENOrdering Facility: [facility] Address: [address] [place] [address] Performed By: #### 5 7021-8 ####[facility] LABORATORYCLIA [id number] [address] MCH (RBC) [Entitic mass] 30.7 pg Normal 26.0-34.0 [facility] Comment on above: Order Comment: Speci men Type: BLOOD SPECIMENOrdering Facility: [facility] Address: [address] [place] [address] Performed By: #### 5 7021-8 ####[facility] LABORATORYCLIA [id number] [address] MCHC (RBC) [Mass/Vol] 33.0 g/dL Normal 30.5-36.0 [facility] Comment on above: Order Comment: Speci men Type: BLOOD SPECIMENOrdering Facility: [facility] Address: [address] [place] [address] Performed By: #### 5 7021-8 ####[facility] LABORATORYCLIA [id number] [address] OF [facility] MCV (RBC) [Entitic vol] 92.9 fL Normal 80.0-100.[address] [facility] Comment on above: Order Comment: Speci men Type: BLOOD SPECIMENOrdering Facility: [facility] Address: [address] [place] [address] Performed By: #### 5 7021-8 ####[place] [facility]ATORYCLIA [id number] [address] [place] Monocytes (Bld) [#/Vol] 0.95 10*3/uL High <0.87 [facility] Comment on above: Order Comment: Speci men Type: BLOOD SPECIMENOrdering Facility: [facility] Address: [address] [place] [address] Performed By: #### 5 7021-8 ####[facility]ATORYCLIA [id number] [address] Monocytes/100 WBC (Bld) 9.2 % Normal A [facility] Comment on above: Order Comment: Speci men Type: BLOOD SPECIMENOrdering Facility: [facility] Address: [address] [place] [address] Performed By: #### 5 7021-8 ####[facility] LABORATORYCLIA [id number] [address] [place] Neutrophils (Bld) [#/Vol] 8.37 10*3/uL High 1.45-7.50 [facility] Comment on above: Order Comment: Speci men Type: BLOOD SPECIMENOrdering Facility: [facility] Address: [address] [place] [address] Performed By: #### 5 7021-8 ####[place] [facility]ATORYCLIA [id number] [address] [place] Neutrophils/100 WBC (Bld) 80.7 % Normal [facility] Comment on above: Order Comment: Speci men Type: BLOOD SPECIMENOrdering Facility: [facility] Address: [address] [place] [address] Performed By: #### 5 7021-8 ####[place] [facility]ORYCLIA [id number] [address] OF [facility] Nucleated RBC (Bld) [#/Vol] 10*3/uL Normal <0.01 [facility] Comment on above: Order Comment: Speci men Type: BLOOD SPECIMENOrdering Facility: [facility] Address: [address] [place] [address] Performed By: #### 5 7021-8 ####[facility] LABORATORYCLIA [id number] [address] OF [place] Nucleated RBC/100 WBC (Bld) [Ratio] 0.0 /100 WBC Normal [facility] Comment on above: Order Comment: Speci men Type: BLOOD SPECIMENOrdering Facility: [facility] Address: [address] [place] [address] Performed By: #### 5 7021-8 ####[facility] LABORATORYCLIA [id number] [address] OF [place] Platelet mean volume (Bld) [Entitic vol] 10.4 fL Normal 9.0-12.7 [facility] Comment on above: Order Comment: Speci men Type: BLOOD SPECIMENOrdering Facility: [facility] Address: [address] [place] [address] Performed By: #### 5 7021-8 ####[facility] LABORATORYCLIA [id number] [address] OF [facility] Platelets (Bld) [#/Vol] 187 10*3/uL Normal 150-400 [facility] Comment on above: Order Comment: Speci men Type: BLOOD SPECIMENOrdering Facility: [facility] Address: [address] [place] [address] Performed By: #### 5 7021-8 ####[facility] LABORATORYCLIA [id number] [address] [place] RBC (Bld) [#/Vol] 3.65 10*6/uL Low 4.20-6.00 [facility] Comment on above: Order Comment: Speci men Type: BLOOD SPECIMENOrdering Facility: [facility] Address: [address] [place] [address] Performed By: #### 5 7021-8 ####[facility] LABORATORYCLIA [id number] [place] [address] [facility] WBC (Bld) [#/Vol] 10.36 10*3/uL Normal 3.70-11.00 [facility] Comment on above: Order Comment: Speci men Type: BLOOD SPECIMENOrdering Facility: [facility] Address: [address] [place] [address] Performed By: #### 5 7021-8 ####[facility] LABORATORYCLIA [id number] [place] [address] [facility] CMPon 02-07-2022 A:G RATIO 1.53 Normal 1.1-2.5 [facility] Comment on above: Performed By: #### L 301.0120, L100.0005 #### [facility] - LABORATORY [address] [place] [address] Albumin [Mass/Vol] 4.0 g/dL Normal 3.5-5.2 [facility] Comment on above: Performed By: #### L 301.0120, L100.0005 #### [facility] [address] [place] [address] ALK. PHOS 64 U/L Normal 40-130 [facility] Comment on above: Performed By: #### L 301.0120, L100.0005 #### [facility] [address] [place] [address] ALT [Catalytic activity/Vol] 18 U/L Normal 5-41 [facility] Comment on above: Performed By: #### L 301.0120, L100.0005 #### [facility] [address] [place] [address] Anion gap [Moles/Vol] 17.6 mmol/L Normal 15-22 [facility] Comment on above: Performed By: #### L 301.0120, L100.0005 #### [facility] [address] [place] [address] AST [Catalytic activity/Vol] 29 U/L Normal 5-40 [facility] [facility] Comment on above: Performed By: #### L 301.0120, L100.0005 #### [facility] [address] [place] [address] 67559 Bilirubin [Mass/Vol] 0.7 mg/dL Normal 0.2-1.2 Critical access hospital Comment on above: Performed By: #### L 301.0120, L100.0005 #### - LABORATORY [address] [place] [address] 58713 Calcium [Mass/Vol] 9.4 mg/dL Normal 8.8-10.2 [facility] Comment on above: Performed By: #### L 301.0120, L100.0005 #### [facility] [address] [place] [address] 72151 Chloride [Moles/Vol] 100 mmol/L Normal 98-107 Critical access hospital Comment on above: Performed By: #### L 301.0120, L100.0005 #### [facility] [address] [place] [address] 27606 CO2 [Moles/Vol] 23 mmol/L Normal 22-29 [facility] Comment on above: Performed By: #### L 301.0120, L100.0005 #### [facility] [address] [place] [address] 93756 Creatinine [Mass/Vol] 1.01 mg/dL Normal 0.70-1.20 [facility] Comment on above: Performed By: #### L 301.0120, L100.0005 #### - LABORATORY [address] [place] [address] 55806 eGFR if AFR FAHAD > 60 ml/min/1.73m2 Normal Replaced by [facility] Comment on above: Result Comment: eGFR >= [...] L 301.0120, L100.0005 #### [facility] - LABORATORY [address] [place] [address] 61359 eGFR nonAFR Fahad > 60 ml/Min/1.73m2 Normal U [facility] Comment on above: Performed By: #### L 301.0120, L100.0005 #### [facility] - LABORATORY [address] [place] [address] 78014 Globulin (S) [Mass/Vol] 2.6 g/dL Normal 1.5-4.5 Replaced by [facility] Comment on above: Performed By: #### L 301.0120, L100.0005 #### [facility] [address] [place] [address] 41832 Glucose [Mass/Vol] 170 mg/dL High 82-115 [facility] Comment on above: Performed By: #### L 301.0120, L100.0005 #### [facility] [address] [place] [address] 35563 Potassium [Moles/Vol] 4.6 mmol/L Normal 3.5-5.0 [facility] Comment on above: Performed By: #### L 301.0120, L100.0005 #### [facility] [address] [place] [address] 40596 Protein [Mass/Vol] 6.6 g/dL Normal 6.4-8.3 [facility] Comment on above: Performed By: #### L 301.0120, L100.0005 #### [facility] [address] [place] [address] 05990 Sodium [Moles/Vol] 136 mmol/L Normal 135-145 [facility] Comment on above: Performed By: #### L 301.0120, L100.0005 #### [facility] [address] [place] [address] 85483 Urea nitrogen [Mass/Vol] 24 mg/dL High 8-23 [facility] Comment on above: Performed By: #### L 301.0120, L100.0005 #### [facility] [address] [place] [address] CONSULTon 02-07-2022 CONSULT HNO ID: [id number] Author: Roby Alexander MD Service: ? Author Type: Physician Type: Consults Filed: 02/20/2022 7:51 PM Note Text: [facility] - Consultation PATIENT NAME: MIRI CAI CSN: [id number] DATE OF : 1945 SEX/AGE: M/76 PATIENT TYPE: I HOSP SVC: ICU LOCATION: [id number] DATE OF SERVICE: 02/07/2022 TIME OF SERVICE: 01:35 AM CHIEF COMPLAINT: Left hemispheric ischemic stroke. I appreciate consult. I am seeing the patient upon request of Cleo Claire, physician blood bank assistant in neuro-intensive care unit. I was [...] with the patient's sister Hilda Fang at #[phone]. I explained to her that we can [...] the phone. Roby Alexander MD Neurosurgery FA:ezekiel /[phone] Normal [facility] CONSULT HNO ID: [id number] Author: Kayode James MD Service: Cardiovascular Medicine [...] left shoulder arthroplasty yesterday at the [facility] on 02/06 following which he was found [...] delay in transporting he patient to the [facility], after discussing with neurologist, TNK was administered [...] in III, aVF suggestive of possible late TN. Patient appears comfortable and in no distress. [...] Laterality Date NON-MELANOMA SKIN CANCER TUMOR BOARD [facility] 10/2021 REMV CATARACT EXTRACAP,INSERT LENS [...] (more content not included)... Normal [facility] CONSULT HNO ID: [id number] Author: Diaz Aponte MD Service: Orthopaedic Surgery [...] Date NON-MELANOMA SKIN CANCER TUMOR BOARD - [facility] 10/2021 REMV CATARACT EXTRACAP,INSERT LENS Bilateral 06/2021 [...] male POD1 s/p L TSA at [facility], administered thrombolytic agent Plan Management per primary [...] (more content not included)... Normal [facility] CONSULT HNO ID: [id number] Author: Roby Alexander MD Service: ? Author Type: Physician Type: Consults Filed: 02/07/2022 2:51 AM Note Text: Consult dictated Normal [facility] CT BRAIN WO IVCONon 02-08-20 CT BRAIN WO IVCON * * *Final Report* * * DATE OF EXAM: Feb 07 2022 4:46PM [facility] 0504 - CT BRAIN WO IVCON / [...] brain from outside institution dated 02/06/2022. RESULT: Mathematics Instructor (topogram) images: Unremarkable. Post-operative change: None. Acute [...] white matter. Generalized brain parenchymal volume loss. Chief Maintenance Supervisor: EMMA Transcribe Date/Time: Feb 07 2022 5:20P Dictated by : FILEMON ADAMSON MD This examination was interpreted and the report reviewed and electronically signed by: FILEMON ADAMSON MD on Feb 07 2022 5:29PM EST [id number] Normal [facility] Comprehensive metabolic 2000 panelon 02-07-2022 Albumin [Mass/Vol] 3.3 g/dL Low 3.9-4.9 [facility] Comment on above: Order Comment: Speci men Type: BLOOD SPECIMENOrdering Facility: [facility] Address: [address] [place] [address] Performed By: #### 2 4323-8, 44007-8, 74363-8, 2776- ####[facility] LABORATORYCLIA [id number] [place] [address] [place] ALP [Catalytic activity/Vol] 51 U/L Normal 38-113 [facility] Comment on above: Order Comment: Speci men Type: BLOOD SPECIMENOrdering Facility: [facility] Address: [address] [place] [address] Performed By: #### 2 4323-8, 89946-3, , 2776- ####[facility] LABORATORYCLIA [id number] [address] [place] ALT With P-5'-P [Catalytic activity/Vol] 17 U/L Normal 10-54 [facility] Comment on above: Order Comment: Speci men Type: BLOOD SPECIMENOrdering Facility: [facility] Address: [address] [place] [address] Performed By: #### 2 4323-8, 90143-0, , 2776- ####[facility] LABORATORYCLIA [id number] [address] [place] Anion gap [Moles/Vol] 14 mmol/L Normal 9-18 [facility] Comment on above: Order Comment: Speci men Type: BLOOD SPECIMENOrdering Facility: [facility] Address: [address] [place] [address] Performed By: #### 2 4323-8, 03370-9, 31328-4, 2776-1 ####[facility] LABORATORYCLIA [id number] [address] [place] AST With P-5'-P [Catalytic activity/Vol] Normal [facility] Comment on above: Order Comment: Speci men Type: BLOOD SPECIMENOrdering Facility: [facility] Address: [address] [place] [address] Result Comment: Unab le to assay due to interference from hemolysis. Suggest reorder as clinically indicated. Performed By: #### 2 4323-8, 17019-7, , 2776-05 ####[facility] LABORATORYCLIA [id number] [address] [place] Bilirubin [Mass/Vol] 1.0 mg/dL Normal 0.2-1.3 [facility] Comment on above: Order Comment: Speci men Type: BLOOD SPECIMENOrdering Facility: [facility] Address: [address] [place] [address] Performed By: #### 2 4323-8, 97323-2, , 2776-05 ####[facility] [id number] [address] [place] Calcium [Mass/Vol] 8.4 mg/dL Low 8.5-10.2 [facility] Comment on above: Order Comment: Speci men Type: BLOOD SPECIMENOrdering Facility: [facility] Address: [address] [place] [address] Performed By: #### 2 4323-8, 58596-9, , 2776-05 ####[facility] LAB[facility]ATORYCLIA [id number] [address] [place] Chloride [Moles/Vol] 103 mmol/L Normal 97-105 [facility] Comment on above: Order Comment: Speci men Type: BLOOD SPECIMENOrdering Facility: [facility] Address: [address] [place] [address] Performed By: #### 2 4323-8, 22326-5, , 2776- ####[facility]ORATORYCLIA [id number] [place] [address] [place] CO2 [Moles/Vol] 20 mmol/L Low 22-30 [facility] Comment on above: Order Comment: Parveeni men Type: BLOOD SPECIMENOrdering Facility: [facility] Address: [address] [place] [address] Performed By: #### 2 4323-8, 24063-5, , 2776-05 ####[facility] [id number] [address] [place] Creatinine [Mass/Vol] 0.85 mg/dL Normal 0.73-1.22 [facility] Comment on above: Order Comment: Parveeni men Type: BLOOD SPECIMENOrdering Facility: [facility] Address: [address] [place] [address] Performed By: #### 2 4323-8, 93519-8, , 2776-05 ####[facility] [id number] [address] STATES OF [facility] ESTIMATED GLOMERULAR FILTRATION RATE 89 mL/min/1.73m??? Normal >=60 [facility] Comment on above: Order Comment: Suzanne men Type: BLOOD SPECIMENOrdering Facility: [facility] Address: [address] [place] [address] Result Comment: Ethan mated Glomerular Filtration Rate [...] actual GFR. Performed By: #### 2 4323-8, 97885-0, , 2776-05 ####[facility] LABORATORYCLIA [id number] [place] [address] [place] Glucose [Mass/Vol] 159 mg/dL High 74-99 [facility] Comment on above: Order Comment: Speci men Type: BLOOD SPECIMENOrdering Facility: [facility] Address: [address] [phone] Result Comment: The [place] Diabetes Association (ADA) provides guidance for cutoff [...] Standards of Medical Care in Diabetes 2016, [place] Diabetes Association. Diabetes Care. 2016.39(Suppl 1). Performed By: #### 2 4323-8, 98129-2, , 2776-05 ####[facility] LABORATORYCLIA [id number] [place] [address] [place] Potassium [Moles/Vol] 4.7 mmol/L Normal 3.7-5.1 [facility] Comment on above: Order Comment: Speci men Type: BLOOD SPECIMENOrdering Facility: [facility] Address: [address] [place], [place] [address] Performed By: #### 2 4323-8, 09481-4, , 2776-05 ####[facility] LABORATORYCLIA [id number] [place] [address] [place] Protein [Mass/Vol] 5.4 g/dL Low 6.3-8.0 [facility] Comment on above: Order Comment: Speci men Type: BLOOD SPECIMENOrdering Facility: [facility] Address: [address] [place], [place] [phone] Performed By: #### 2 4323-8, 69629-9, , 2776-05 ####[facility] LABORATORYCLIA [id number] [place] [address] [place] Sodium [Moles/Vol] 137 mmol/L Normal 136-144 [facility] Comment on above: Order Comment: Speci men Type: BLOOD SPECIMENOrdering Facility: [facility] Address: [address] [place] [address] Performed By: #### 2 4323-8, 20753-7, , 2776-05 ####[facility] LABORATORYCLIA [id number] [place] [id number] [place] Urea nitrogen [Mass/Vol] 21 mg/dL Normal 9-24 [facility] Comment on above: Order Comment: Speci men Type: BLOOD SPECIMENOrdering Facility: [facility] Address: [address] [place] [address] Performed By: #### 2 4323-8, 02132-2, , 2776-05 ####[facility] LABORATORYCLIA [id number] [address] [place] ECHOon 02-07-2022 Echocardiography Echocardiography Report: Transthoracic Echo [facility] Date of service: 02/07/2022 10:30:22 AM [facility] Ordering physician: CLEO CLAIRE Indication: Stroke Technologist: Emily Lui [facility] Interpreting physician: Endy Bates MD PATIENT: Name: MRII CAI : 1945 Age: 76 years Gender: [...] * * Final * * * CC [employer] [facility] : [id number] [id number] Normal [facility] GLUCOSE FSon 02-07-2022 Glucose [Mass/Vol] 170 mg/dL High 70-110 [facility] Comment on above: Performed By: #### L 100.0070 #### [facility] [address] [id number] HIGH SENSITIVITY TROPONIN To n 02-07-2022 HIGH SENSITIVITY HENRY 14 ng/L High <12 [facility] Comment on above: Order Comment: Suzanne rivera Type: BLOOD SPECIMENOrdering Facility: [facility] Address: [address] [place] [address] Result Comment: When assessing risk for acute [...] day MACE. Performed By: #### H STNT ####[facility] LABORATORYIA [id number] [address] STATES OF [facility] HIGH SENSITIVITY HENRY 13 ng/L High <12 [facility] Comment on above: Order Comment: Suzanne rivera Type: BLOOD SPECIMENOrdering Facility: [facility] Address: [address] [place] [address] Result Comment: When assessing risk for acute [...] day MACE. Performed By: #### H STNT ####[facility] LABORATORYCLIA [id number] [address] [place] HIGH SENSITIVITY HENRY 12 ng/L High <12 [facility] Comment on above: Order Comment: Suzanne rivera Type: BLOOD SPECIMENOrdering Facility: [facility] Address: [address], [place] [address] Result Comment: When assessing risk for acute [...] day MACE. Performed By: #### H STNT ####[facility] LABORATORYCLIA [id number] [place] [address] [facility] HISTORY PHYSICALon HISTORY PHYSICAL HNO ID: [id number] Author: Cleo Claire PA-C Service: Neurology ICU Author Type: Physician Work Station Support Specialist Type: HANDP Filed: 02/07/2022 3:41 AM Note [...] Gregory Rey MD Staff, Neurointensive Care Neurological [place] Pager [phone] DATE of SERVICE: February 07, 2022 TIME of SERVICE: 2:55 PM SERVICE DATE: 02/07/2022 SERVICE TIME: 2:30AM NEUROLOGICAL INTENSIVE CARE UNIT HISTORY AND PHYSICAL (STROKE CARE PATH) REASON FOR STROKE EVALUATION: Aphasia and Left Sided Weakness, Facial droop REASON FOR NEUROLOGICAL ICU ADMISSION: Acute L MCA ischemic stroke Stroke Mechanism: Cardioembolic - Afib/flutter off OAC METRICS: Initial NIHSS Score: 18 Sandro Coma Scale Totals (Calculated): 10 Date Patient Last Known Well: 02/06/22 Time Patient Last Known Well: 2099 Date of Patient Arrival at THIS Facility: 02/07/22 Time of Patient Arrival at THIS Facility: 117 Pre-admission: Was patient on antithrombotic agent prior to admission: Anticoagulant Anticoagulant: Apixaban (Held on 02/02 for pre surgery) Premorbid Modified [place] Score: 0=0 - No symptoms at all Baseline Functional Status (i.e. ADL's, Ambulatory Status, Cognitive Issues): Independent for ADLs. AANDOx3. Ambulatory Subjective HPI: Patient is a 76 year old M with past medical history significant for HTN, DM type 2, pAF on Eliquis (held for surgery), who presents as transfer from [place] ED with findings of acute L MCA stroke. Patient was admitted to [facility] after undergoing elective left shoulder replacement yesterday [...] given recent surgery. Plan to transfer to [facility] for mechanical thrombectomy. However, patient could only be transported via ground d/t weather. Given delay, long discussion had between Dr. Alexander, stroke neurology, Hospital team at [place] and ortho surgeon. Ultimately decided to administer [...] in III, aVF suggestive of possible late TN. Patient appears comfortable and in no distress. Taken to [facility] for thrombectomy. NSICU admit post [facility] for continued stroke management. PAST MEDICAL HISTORY Diagnosis Date - Arrhythmia - Diabetes mellitus (HCC) - Essential hypertension PAST SURGICAL HISTORY Procedure Laterality Date - NON-MELANOMA SKIN CANCER TUMOR BOARD - [facility] 10/2021 - REMV CATARACT EXTRACAP,INSERT LENS Bilateral [...] (more content not included)... Normal [facility] HISTORY PHYSICAL HNO ID: [id number] Author: Roby Alexander MD Service: ? Author [...] 2022 TIME: 1:35 AM Normal [facility] HbA1c (Bld)on 02-07-2022 Average glucose Estimated from glycated hemoglobin (Bld) [Mass/Vol] 137 mg/dL Normal [facility] Comment on above: Order Comment: Suzanne rivera Type: BLOOD SPECIMENOrdering Facility: [facility] Address: [address] [place] [address] Result Comment: eAG: (Estimated average glucose) is a calculated value from HgbA1c and is hobbies and crafts sales representative of the average blood glucose level in the last 2-3 month period. Performed By: #### 5 5454-3 ####[facility] LABORATORYCLIA [id number] [address] STATES OF [facility] HbA1c (Bld) [Mass fraction] 6.4 % High 4.3-5.6 [facility] Comment on above: Order Comment: Suzanne rivera Type: BLOOD SPECIMENOrdering Facility: [facility] Address: [address] [place] [address] Result Comment: Amer ican Diabetes Association guidelines indicate that patients with HgbA1c in the range 5.7-6.4% are at increased risk for development of diabetes, and intervention by lifestyle modification may be beneficial. HgbA1c greater or equal to 6.5% is considered diagnostic of diabetes. Performed By: #### 5 5454-3 ####[facility]ATORYCLIA [id number] [address] OF [facility] Lipid 1996 panelon 2 Cholesterol [Mass/Vol] 142 mg/dL Normal <200 [facility] Comment on above: Order Comment: Speci men Type: BLOOD SPECIMENOrdering Facility: [facility] Address: [address] [place] [address] Result Comment: <200 mg/dL, Desirable 200-239 mg/dL, Borderline high >239 mg/dL, High Performed By: #### 2 4323-8, 02278-8, , 2776-05 ####[facility] LABORATORYCLIA [id number] [address] Cholesterol in HDL [Mass/Vol] 50 mg/dL Normal >39 [facility] Comment on above: Order Comment: Speci men Type: BLOOD SPECIMENOrdering Facility: [facility] Address: [address] [place] [address] Result Comment: 40-5 9 mg/dL, Acceptable >59 mg/dL, High: Negative risk factor for coronary heart disease <40 mg/dL, Low: Positive risk factor for coronary heart disease Performed By: #### 2 4323-8, 09173-3, , 2776-05 ####[facility] LABORATORYCLIA [id number] [address] Cholesterol in LDL [Mass/Vol] 83 mg/dL Normal <100 [facility] Comment on above: Order Comment: Speci men Type: BLOOD SPECIMENOrdering Facility: [facility] Address: [address] [place] [address] Result Comment: <100 mg/dL, Optimal 100-129 mg/dL, Near optimal/above optimal 130-159 mg/dL, Borderline high 160-189 mg/dL, High >189 mg/dL, Very high Secondary prevention optimal LDL Cholesterol levels are recommended to be < 70 mg/dL Performed By: #### 2 4323-8, 64125-0, 94875-7, 2776-1 ####[facility] LABORATORYCLIA [id number] [address] Cholesterol in LDL/Cholesterol in HDL [Mass ratio] 1.66 {ratio} Normal <2.54 [facility] Comment on above: Order Comment: Suzanne men Type: BLOOD SPECIMENOrdering Facility: [facility] Address: [address] [address] Result Comment: Refe rence: 1. National Cholesterol Education Program ATP III Guideline At-A-Glance Quick Desk Reference: National Heart, Lung, and Blood [place]. National Institutes of Health. 2001: NIH Publication No. 01-3305. 2. An International Atherosclerosis Society position paper: global recommendations for the management of dyslipidemia: executive summary, Atherosclerosis. 2014: 232(2):410-413. Performed By: #### 2 4323-8, 52959-9, , 2776-05 ####[facility] LABORATORYCLIA [id number] [address] STATES OF [facility] Cholesterol in VLDL [Mass/Vol] 9 mg/dL Normal <30 [facility] Comment on above: Order Comment: Suzanne miguel Type: BLOOD SPECIMENOrdering Facility: [facility] Address: [address] [place] [address] Performed By: #### 2 4323-8, 50148-3, , 2776-05 ####[facility] LABORATORYCLIA [id number] [address] [place] Cholesterol non HDL [Mass/Vol] 92 mg/dL Normal <130 [facility] Comment on above: Order Comment: Suzanne miguel Type: BLOOD SPECIMENOrdering Facility: [facility] Address: [address] [address] Result Comment: <130 mg/dL, Optimal 130-159 mg/dL, Near optimal/above optimal 160-189 mg/dL, Borderline high 190-219 mg/dL, High >219 mg/dL, Very high Secondary prevention optimal non HDL Cholesterol levels are recommended to be <100 mg/dL Performed By: #### 2 4323-8, 05903-4, , 2776-05 ####[facility] LABORATORYCLIA [id number] [address] Cholesterol.total/Choles terol in HDL [Mass ratio] 2.84 {ratio} Normal <5.10 [facility] Comment on above: Order Comment: Suzanne rivera Type: BLOOD SPECIMENOrdering Facility: [facility] Address: [address] [place] [address] Performed By: #### 2 4323-8, 91697-7, , 2776-05 ####[facility] LABORATORYCLIA [id number] [address] FASTING TIME 7 hrs Normal [facility] Comment on above: Order Comment: Speci men Type: BLOOD SPECIMENOrdering Facility: [facility] Address: [address] [place] [address] Result Comment: ethan mate Performed By: #### 2 4323-8, 70456-4, , 2776-05 ####[facility] LABORATORYCLIA [id number] [address] Triglyceride [Mass/Vol] 46 mg/dL Normal <[address] [facility] Comment on above: Order Comment: Speci men Type: BLOOD SPECIMENOrdering Facility: [facility] Address: [address] [place] [address] Result Comment: <150 mg/dL, Normal 150-199 mg/dL, Borderline high 200-499 mg/dL, High >499 mg/dL, Very high Performed By: #### 2 4323-8, 16789-7, , 2776-05 ####[facility] LABORATORYCLIA [id number] [address] OF [place] MEDICAL EMERon 02-07-2022 MEDICAL SHERRILL HNO ID: [id number] Author: aMx Nazario APRN.OLAP DEVELOPER Service: Neurology ICU Author Type: Nurse Practitioner [...] hemisphere- OK to give asa/plavix. Max Nazario, AUTOMOTIVE PARTS INTERPRETER.OLAP DEVELOPER Normal [facility] Magnesium SerPl-mCncon 02-07 Magnesium [Mass/Vol] 1.9 mg/dL Normal 1.7-2.3 [facility] Comment on above: Order Comment: Speci men Type: BLOOD SPECIMENOrdering Facility: [facility] Address: [address] [place] [address] Performed By: #### 2 4323-8, 04139-3, 88197-9, 2776- ####[facility] LABORATORYCLIA [id number] [place] [address] [place] Phosphate SerPl-mCncon 02-07 Phosphate [Mass/Vol] 3.1 mg/dL Normal 2.7-4.8 [facility] Comment on above: Order Comment: Speci men Type: BLOOD SPECIMENOrdering Facility: [facility] Address: [address] [place] [address] Performed By: #### 2 4323-8, 23306-4, , 2776-05 ####[facility]ITAL[facility]IA [id number] [place] [address] [place] STAPH AUREUS PCRon 2 S. aureus and MRSA panel NICO+probe (Nose) Normal Negative [facility] Comment on above: Order Comment: Speci men Type: SWAB OF INTERNAL NOSEOrdering Facility: [facility] Address: [address] [place] [address] Result Comment: Nega tive for Staphylococcus aureus by PCR. Negative for MRSA by PCR Performed By: #### S APCR ####[facility]ATORYCLIA [id number] [place] [address] [place] S. aureus and MRSA panel NICO+probe (Nose) Normal Negative [facility] Comment on above: Order Comment: Speci men Type: SWAB OF INTERNAL NOSEOrdering Facility: [facility] Address: [address] [place] [address] Result Comment: Nega tive for Staphylococcus aureus by PCR. Negative for MRSA by PCR Performed By: #### S APCR ####[facility] LABORATORYCLIA [id number] [place] [address] [place] THERAPY NTon 02-07-2022 THERAPY NT HNO ID: [id number] Author: Courtney Keller CCC-AUDITOR TAX Service: Speech/Swallow Author Type: Speech Language Pathologist Type: Therapy (PT/OT/Speech/Resp) Filed: 02/07/2022 11:40 AM Note Text: Speech Therapy Clinical Swallow Evaluation SERVICE DATE: 02/07/2022 SERVICE TIME: 1100 to 1120 ROOM: [place] [address] IMPRESSION: Swallow Deficits Identified / Suspected: Oropharyngeal dysphagia Diet Recommendations: Pureed IDDSI Level 4 Mildly Thick Liquids IDDSI Level 2 (Kenney Thick) Medications crushed in puree (pudding/applesauce) Swallowing [...] Aphasia, Good Participation in activities Continue skilled AUDITOR TAX services due to : Dysphagia Speech Therapy Problem List: Dysphagia Patient Report: States name Current Status Oral Hygiene: Clear, moist oral cavity;Oral Health Assessment Tool (OHAT) Dentition: Retains Natural Dentition;Miscellaneo us Missing Teeth Current Feeding Method: IV Current Diet Textures: NPO Current Level Of Communication: Aphasia;Verbal;[place] hria Current Management Of Secretions: Able to [...] Solid, Mildly Thick Liquids IDDSI Level 2 (Kenney Thick) Response to Consistencies Presented: coughing with [...] (more content not included)... Normal [facility] TROPONIN Ton 02-07-2022 TROPONIN T <0.010 Normal 0-0.010 [facility] Comment on above: Performed By: #### L 301.0120, L100.0005 #### [facility] [address] [place] [address] US CAROTID BILon 02-07-2022 US CAROTID ALEC * * *Final Report* * * DATE OF EXAM: Feb 07 2022 4:34PM A2U 1077 - US CAROTID ALEC / PROCEDURE REASON: stoke' * * * * Physician Interpretation * * * * Non-Invasive Vascular Laboratory [facility] Carotid Duplex Bilateral/Complete Date of service/time: 02/07/2022 3:56:49 PM [facility] Name: MIRI CAI Date of : [...] Interpreting physician: Anirudh Bryant MD Final RP Chief Maintenance Supervisor: JAY Transcribe Date/Time: Feb 07 2022 3:56P Dictated by : ANIRUDH BRYANT MD This examination was interpreted and the report reviewed and electronically signed by: ANIRUDH BRYANT MD on Feb 08 2022 6:57AM EST [id number] Normal [facility] BMPon 02-06-2022 Anion gap [Moles/Vol] 17.5 mmol/L Normal 15-22 [facility] Comment on above: Order Comment: Comme nt: PRE-OP Performed By: #### L 200.1602 #### [facility] - LABORATORY [address] [place] [address] 44583 Calcium [Mass/Vol] 9.9 mg/dL Normal 8.8-10.2 [facility] Comment on above: Order Comment: Comme nt: PRE-OP Performed By: #### L 200.1602 #### [facility] - [facility]AT[facility] [address] [place] [address] 81974 Chloride [Moles/Vol] 101 mmol/L Normal 98-107 [facility] Comment on above: Order Comment: Comme nt: PRE-OP Performed By: #### L 200.1602 #### [facility] - [facility] [address] [place] [address] 69854 CO2 [Moles/Vol] 25 mmol/L Normal 22-29 [facility] Comment on above: Order Comment: Comme nt: PRE-OP Performed By: #### L 200.1602 #### [facility] - [facility]ORY [address] [place] [address] 10087 Creatinine [Mass/Vol] 0.99 mg/dL Normal 0.70-1.20 [facility] Comment on above: Order Comment: Comme nt: PRE-OP Performed By: #### L 200.1602 #### [facility] - [facility]ATORY [address] [place] [address] 15816 eGFR if AFR FAHAD > 60 ml/min/1.73m2 Normal Replaced by [facility] Comment on above: Order Comment: Comme nt: [...] #### L 200.1602 #### [facility] - [facility] [address] [place] [address] 49376 eGFR nonAFR Fahad > 60 ml/Min/1.73m2 Normal [facility] Comment on above: Order Comment: Comme nt: PRE-OP Performed By: #### L 200.1602 #### [facility] - [facility] [address] [place] [address] 84148 Glucose [Mass/Vol] 114 mg/dL Normal 82-115 [facility] Comment on above: Order Comment: Comme nt: PRE-OP Performed By: #### L 200.1602 #### ML [facility] [address] [place] [address] 33569 Potassium [Moles/Vol] 4.5 mmol/L Normal 3.5-5.0 [facility] Comment on above: Order Comment: Comme nt: PRE-OP Performed By: #### L 200.1602 #### ML [facility] [address] [place] [address] 18036 Sodium [Moles/Vol] 139 mmol/L Normal 135-145 [facility] Comment on above: Order Comment: Comme nt: PRE-OP Performed By: #### L 200.1602 #### ML [facility] [address] [place] [address] 91675 Urea nitrogen [Mass/Vol] 22 mg/dL Normal 8-23 [facility] Comment on above: Order Comment: Comme nt: PRE-OP Performed By: #### L 200.1602 #### [facility] - [facility] [address] [place] [address] 62564 CBCon 02-06-2022 BASO# 0.00 x10(3) Normal 0.00-0.10 [facility] Comment on above: Performed By: #### L 200.0010 #### ML [facility] [address] [place] [address] 66547 Basophils/100 WBC (Bld) 0.2 % Normal 0.0-1.0 Replaced by [facility] Comment on above: Performed By: #### L 200.0010 #### [facility] - [facility]ATORY [address] [place] [address] 79314 EOS# 0.00 x10(3) Normal 0.00-0.54 [facility] Comment on above: Performed By: #### L 200.0010 #### [facility] [address] [place] [address] 17221 Eosinophils/100 WBC (Bld) 0.0 % Low 0.5-4.9 [facility] Comment on above: Performed By: #### L 200.0010 #### [facility] - [facility] [address] [place] [address] 88249 Erythrocyte distribution width (RBC) [Ratio] 15.0 % Normal 12.7-15.3 [facility] Comment on above: Performed By: #### L 200.0010 #### ML [facility] [address] [place] [address] 57518 Hematocrit (Bld) [Volume fraction] 40.1 % Low 42.0-51.0 [facility] Comment on above: Performed By: #### L 200.0010 #### ML [facility] [address] [place] [address] 50655 Hemoglobin (Bld) [Mass/Vol] 13.4 g/dL Low 14.0-17.2 [facility] Comment on above: Performed By: #### L 200.0010 #### [facility] [address] [place] [address] 07002 LYMPH# 0.50 x10(3) Low 1.00-3.50 [facility] Comment on above: Performed By: #### L 200.0010 #### [facility] [address] [place] [address] 91728 Lymphocytes/100 WBC (Bld) 6.2 % Low 16.0-48.0 [facility] Comment on above: Performed By: #### L 200.0010 #### [facility] [address] [place] [address] 75232 MCH (RBC) [Entitic mass] 31.1 pg Normal 28.8-32.2 [facility] Comment on above: Performed By: #### L 200.0010 #### [facility] [address] [place] [address] 99318 MCHC (RBC) [Mass/Vol] 33.4 g/dL Normal 33.0-36.0 [facility] Comment on above: Performed By: #### L 200.0010 #### ML [facility] [address] [place] [address] 34097 MCV (RBC) [Entitic vol] 93.1 fL Normal 80.0-94.0 Replaced by [facility] Comment on above: Performed By: #### L 200.0010 #### ML [facility] [address] [place] [address] 99071 MONO# 0.80 x10(3) Normal 0.30-0.80 [facility] Comment on above: Performed By: #### L 200.0010 #### [facility] [address] [place] [address] 87269 Monocytes/100 WBC (Bld) 9.8 % Normal 4.3-11.2 Replaced by [facility] Comment on above: Performed By: #### L 200.0010 #### ML [facility] [address] [place] [address] 43055 NEUT# 6.90 x10(3) High 1.40-6.50 [facility] Comment on above: Performed By: #### L 200.0010 #### [facility] [address] [place] [address] 68438 Neutrophils/100 WBC (Bld) 83.8 % High 45.0-73.0 [facility] Comment on above: Performed By: #### L 200.0010 #### [facility] [address] [place] [address] 85665 Platelet mean volume (Bld) [Entitic vol] 8.1 fL Normal 7.4-9.2 [facility] Comment on above: Performed By: #### L 200.0010 #### [facility] [address] [place] [address] 86892 PLT 197 X10(3) Normal 150-450 [facility] Comment on above: Performed By: #### L 200.0010 #### [facility] - [facility] [address] [place] [address] 10786 RBC 4.31 x10(6) Low 4.80-5.50 [facility] Comment on above: Performed By: #### L 200.0010 #### [facility] [address] [place] [address] 86891 WBC 8.2 x10(3) Normal 4.5-10.0 [facility] Comment on above: Performed By: #### L 200.0010 #### [facility] - [facility] [address] [place] [address] 78606 BASO# 0.00 x10(3) Normal 0.00-0.10 [facility] Comment on above: Order Comment: Comme nt: PRE-OP Performed By: #### L 200.1602 #### [facility] [address] [place] [address] 10840 Basophils/100 WBC (Bld) 0.3 % Normal 0.0-1.0 Replaced by [facility] Comment on above: Order Comment: Comme nt: PRE-OP Performed By: #### L 200.1602 #### [facility] - [facility] [address] [place] [address] 92143 EOS# 0.00 x10(3) Normal 0.00-0.54 [facility] Comment on above: Order Comment: Comme nt: PRE-OP Performed By: #### L 200.1602 #### [facility] [address] [place] [address] 68596 Eosinophils/100 WBC (Bld) 0.5 % Normal 0.5-4.9 [facility] Comment on above: Order Comment: Comme nt: PRE-OP Performed By: #### L 200.1602 #### [facility] [address] [place] [address] 24025 Erythrocyte distribution width (RBC) [Ratio] 15.0 % Normal 12.7-15.3 [facility] Comment on above: Order Comment: Comme nt: PRE-OP Performed By: #### L 200.1602 #### [facility] [address] [place] [address] 45407 Hematocrit (Bld) [Volume fraction] 43.5 % Normal 42.0-51.0 [facility] Comment on above: Order Comment: Comme nt: PRE-OP Performed By: #### L 200.1602 #### [facility] - [facility] [address] [place] [address] 41787 Hemoglobin (Bld) [Mass/Vol] 14.3 g/dL Normal 14.0-17.2 [facility] Comment on above: Order Comment: Comme nt: PRE-OP Performed By: #### L 200.1602 #### [facility] - [facility] [address] [place] [address] 00115 LYMPH# 0.80 x10(3) Low 1.00-3.50 [facility] Comment on above: Order Comment: Comme nt: PRE-OP Performed By: #### L 200.1602 #### [facility] - [facility] [address] [place] [address] 27261 Lymphocytes/100 WBC (Bld) 15.8 % Low 16.0-48.0 [facility] Comment on above: Order Comment: Comme nt: PRE-OP Performed By: #### L 200.1602 #### [facility] [address] [place] [address] 82240 MCH (RBC) [Entitic mass] 30.7 pg Normal 28.8-32.2 [facility] Comment on above: Order Comment: Comme nt: PRE-OP Performed By: #### L 200.1602 #### [facility] - [facility] [address] [place] [address] 93246 MCHC (RBC) [Mass/Vol] 32.8 g/dL Low 33.0-36.0 [facility] Comment on above: Order Comment: Comme nt: PRE-OP Performed By: #### L 200.1602 #### [facility] - [facility] [address] [place] [address] 41336 MCV (RBC) [Entitic vol] 93.4 fL Normal 80.0-94.0 Replaced by [facility] Comment on above: Order Comment: Comme nt: PRE-OP Performed By: #### L 200.1602 #### [facility] - [facility] [address] [place] [address] 44806 MONO# 0.50 x10(3) Normal 0.30-0.80 [facility] Comment on above: Order Comment: Comme nt: PRE-OP Performed By: #### L 200.1602 #### [facility] - [facility] [address] [place] [address] 64635 Monocytes/100 WBC (Bld) 10.4 % Normal 4.3-11.2 Replaced by [facility] Comment on above: Order Comment: Comme nt: PRE-OP Performed By: #### L 200.1602 #### [facility] - [facility] [address] [place] [address] 37573 NEUT# 3.80 x10(3) Normal 1.40-6.50 [facility] Comment on above: Order Comment: Comme nt: PRE-OP Performed By: #### L 200.1602 #### [facility] - [facility] [address] [place] [address] 97072 Neutrophils/100 WBC (Bld) 73.0 % Normal 45.0-73.0 [facility] Comment on above: Order Comment: Comme nt: PRE-OP Performed By: #### L 200.1602 #### [facility] - [facility] [address] [place] [address] 96812 Platelet mean volume (Bld) [Entitic vol] 7.8 fL Normal 7.4-9.2 [facility] Comment on above: Order Comment: Comme nt: PRE-OP Performed By: #### L 200.1602 #### [facility] - [facility] [address] [place] [address] 90793 PLT 205 X10(3) Normal 150-450 [facility] Comment on above: Order Comment: Comme nt: PRE-OP Performed By: #### L 200.1602 #### [facility] [address] [place] [address] 96961 RBC 4.65 x10(6) Low 4.80-5.50 [facility] Comment on above: Order Comment: Comme nt: PRE-OP Performed By: #### L 200.1602 #### [facility] [address] [place] [address] 51793 WBC 5.3 x10(3) Normal 4.5-10.0 [facility] Comment on above: Order Comment: Breanna nt: PRE-OP Performed By: #### L 200.1602 #### [facility] [address] [place] [address] ANGIO HEAD W/WO CONTRASTo n 02-06-2022 CT ANGIO HEAD W/WO CONTRAST [address] [address] Name: MIRI CAI Phys: KINJAL ORTEZ M.D. : [birth year] Age: 76 Sex: M Acct: [id number] Loc: [facility] Exam Date: 02/06/22 Status: [facility] Radiology No.: Unit Number: [id number] Exam # Type/Exam [id number] CT / CT ANGIO HEAD W/WO CONTRAST [...] 02/07/2022 1:15:50 PM EST Workstation ID : [id number] < > Reported By: ODALYS YUAN M.D. Signed In Fluency By: ODALYS YUAN M.D. << Signature on File>> Reported By: ODALYS YUAN M.D. Signed By: ODALYS YUAN M.D. Tests performed at: [place] [address] Normal [facility] CT ANGIO NECK W/WO CONTRASTo n 02-06-2022 CT ANGIO NECK W/WO CONTRAST [address] [address] Name: MIRI CAI Phys: KINJAL ORTEZ M.D. : 43 Age: 76 Sex: M Acct: [id number] Loc: [facility] Exam Date: 02/06/22 Status: [facility] Radiology No.: Unit Number: [id number] Exam # Type/Exam [id number] CT / CT ANGIO NECK W/WO CONTRAST [...] 02/07/2022 1:12:37 PM EST Workstation ID : [id number] < > Reported By: ODALYS YUAN M.D. Signed In Fluency By: ODALYS YUAN M.D. << Signature on File>> Reported By: ODALYS YUAN M.D. Signed By: ODALYS YUAN M.D. Tests performed at: [place] [address] Normal [facility] CT BRAIN WITHOUT CONTRAST- C TBon 02-06-2022 CT BRAIN WITHOUT CONTRAST- CTB [address] [address] Name: MIRI CAI Phys: KINJAL ORTEZ M.D. : [birth year] Age: 76 Sex: M Acct: [id number] Loc: [facility] Exam Date: 02/06/22 Status: [facility] Radiology No.: Unit Number: [id number] Exam # Type/Exam [id number] CT / CT BRAIN WITHOUT CONTRAST- CTB [...] By: AN ANN M.D. Tests performed at: [place] [id number] [place], [place] [address] Normal [facility] ELECTROCARDIOGRAMon 02-07-20 22 [place] [address] HEALTH INFORMATION MANAGEMENT ELECTROCARDIOGRAM REPORT Patient: MIRI CAI Ordering: CARSON BULLOCK III, D.O. [id number] [age] M Exam Date: 02/06/22 Report #: [id number] Status: DEP SDC AMB Test Reason : Blood Pressure [...] was found Confirmed by JIM BEE MD ([id number]) on 02/07/2022 2:10:01 PM Referred By: Confirmed By:JIM BEE MD Signed in MUSE 02/07/22 1410 JIM BEE M.D. cc: << Signature on File>> Reported By: JIM BEE M.D. Signed By: JIM BEE M.D. Tests performed at: [place] [address] Normal [facility] OPERATIVE REPORTon 2 [place] [address] HEALTH INFORMATION MANAGEMENT OPERATIVE REPORT Patient: MIRI CAI ARA JIMENEZ,CARSON Bains D.O. [id number] M Status: 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 2. Left shoulder open long head of biceps tenodesis, CPT code 31828. PROFESSIONAL NURSING TUTOR: Belkis Nam PA-C. ANESTHESIA: General endotracheal intubation plus interscalene block. ESTIMATED BLOOD LOSS: 100 mL. FLUIDS: 1300 mL of normal saline. COMPLICATIONS: None. IMPLANT: Reverse total shoulder by Tornier: 1. Perform Reversed Augmented Glenoid 29 mm [...] was obtained in the preoperative period and Walltik software was used for templating purposes. The [...] and t (more content not included)... Normal [facility] PTon 02-06-2022 INR Coag (PPP) [Relative time] 1.0 {INR} Normal 0.8-1.1 [facility] Comment on above: Order Comment: Comme [...] systemic embolism) 2.0-3.0 AMI (to prevent recurrent TN) 2.5-3.5 Valvular heart disease 2.0-3.0 Atrial fibrillation 2.0-3.0 Mechanical prosthetic valves (high risk) 2.5-3.5 Bileaflet mechanical valve in aortic position 2.0-3.0 Presence of Lupus Anticoagulant or Antiphospholipid Antibodies 2.5-3.5 PANIC VALUE: GREATER THAN OR EQUAL TO 4.5 Performed By: #### L 200.1602 #### [facility] - [facility] [address] [place] [address] 00115 PT Coag (PPP) [Time] 11.6 s Normal 9.4-12.5 [facility] Comment on above: Order Comment: Comme nt: PRE-OP Performed By: #### L 200.1602 #### [facility] [address] [place] [address] 13761 SHOULDER MIN 2 VIEWon 2021 SHOULDER MIN [address] [address] Name: MIRI CAI Phys: BELKIS NAM PA-C : [birth year] Age: 76 Sex: M Acct: [id number] Loc: [facility] Exam Date: 02/06/22 Status: [facility] Radiology No.: Unit Number: [id number] Exam # Type/Exam [id number] RAD / SHOULDER MIN 2 VIEW LT [...] 02/06/2022 3:50:03 PM EST Workstation ID : [id number] < > Reported By: VIJAY SUNG D.O. Signed In Fluency By: VIJAY SUNG D.O. << Signature on File>> Reported By: VIJAY SUNG D.O. Signed By: VIJAY SUNG D.O. Tests performed at: [address] [address] Normal [facility] Covid-19on 02-04-2022 SARS-CoV-2 (COVID-19) RNA NICO+probe Ql (Unsp spec) See Below Normal Not Detected [facility] Comment on above: Result Comment: COVI D 19 RESULT SARS-CoV-2 (Agent of COVID-19) Not Detected by RT-PCR or equivalent method. This test was developed and its performance characteristics determined by [facility] and Laboratory Medicine [place]. This test has been authorized by FDA under an Emergency Use Authorization (EUA). This test has been validated in accordance with the FDA's Guidance Document Policy for Diagnostics Testing in Laboratories Certified to Perform High Complexity Testing under CLIA prior to Emergency use Authorization for Coronavirus Disease 2019 during the Public Health Emergency issued on July 10, 2019. Test performed by [facility], [facility] and Laboratory Medicine [place], [address] [place] [address]. SOURCE: NASOPHARYNGEAL Test Performed By: [place] [address] Civil Engineering Intern: Robin Delgado III, M.D. SARS-CoV-2 RNA Resp Ql NICO+p karthik 02-03-2022 SARS-CoV-2 (COVID-19) RNA NICO+probe Ql (Resp) SARS-CoV-2 (Agent of COVID-19) Not Detected by RT-PCR or equivalent method. Normal Not Detected [facility] Comment on above: Order Comment: Speci men Type: SWAB OF INTERNAL NOSEOrdering Facility: [facility] Address: [address] [place] [address] Result Comment: This test was developed and its performance characteristics determined by [facility] [place]. This test has been authorized by FDA under an Emergency Use Authorization (EUA). This test has been validated in accordance with the FDA's Guidance Document Policy for Diagnostics Testing in Laboratories Certified to Perform High Complexity Testing under CLIA prior to Emergency use Authorization for Coronavirus Disease 2019 during the Public Health Emergency issued on July 10, 2019. Test performed by [facility], [facility] and Laboratory [facility] [place], [address] [place] [address]. Performed By: #### 9 4500-6 ####[facility] [id number] [facility] [id number] [address] [place] TYPE AND SCREENon 02-03-2022 AB SCRN Negative Normal [facility] Comment on above: Performed By: #### B 100.0700 #### [facility] - [facility] [address] [place] [address] BLD TYPE Positive Normal [facility] Comment on above: Performed By: #### B 100.0700 #### [facility] - [facility] [address] [place] [address] CNOVon 01-31-2022 CNOV Office Visit (ORUPDO ) MIRI CAI ([id number]) 1945 M Date Time Provider Department 01/31/22 [...] Procedure Laterality Date NON-MELANOMA SKIN CANCER TUMOR [facility] 10/2021 REMV CATARACT EXTRACAP,INSERT LENS Bilateral 06/2021 [...] which included preparing to see the patient, [id number] patient care, completing clinical documentation, obtaining and/or reviewing separately obtained history, perfor (more content not included)... Normal [facility]ays[facility] ([id number]) 1945 M Date Time Provider Department 01/31/22 [...] reminder card was provided. Per Deloris at [facility] surgery scheduling- he is [...] Status:Closed by ELLEN DAVILA on 01/31/22 Normal [facility] [id number] 01-31-2022 HbA1c (Bld) [Mass fraction] 6.3 % High 4.8-5.6 [facility] Comment on above: Result Comment: Pred iabetes: 5.7 - 6.4 Diabetes: >6.4 Glycemic control for adults with diabetes: <7.0 Performed at: - Lab[address] [id number] Picking Crew Supervisor: Josh Cee PhD, Phone: [phone] Performed By: #### L 811.1570 #### [place] [address] So 01-28-2022 ANAIS Telephone (ORUPDO) MIRI CAI ([id number]) 1945 M Date Time Provider Department 01/28/22 ARA JIMENEZ, CARSON MATHEW During your visit today, we recorded the [...] on clearances from his PCP and his traveling passenger agent. He states he was scheduled to see his PCP but cancelled it this morning since he was told we had his clearances. He will call back to reschedule his appointment with his PCP. Advised patient to call his traveling passenger agent for clearance appointment since his phone was [...] Status:Closed by HANNAH PAVON on 01/29/22 Normal [facility] 01-24-2022 Anion gap [Moles/Vol] 17.4 mmol/L Normal 15- [facility] Comment on above: Performed By: #### L 100.0010 #### ML - LABORATORY [address] [place] [address]40 Calcium [Mass/Vol] 9.9 mg/dL Normal 8.8-10.2 [facility] Comment on above: Performed By: #### L 100.0010 #### ML - LABORATORY [address] [place] [address] 72783 Chloride [Moles/Vol] 100 mmol/L Normal 98-107 [facility] hospital Comment on above: Performed By: #### L 100.0010 #### ML - LABORATORY [address] [place] [address] 06324 CO2 [Moles/Vol] 25 mmol/L Normal 22-29 [facility] Comment on above: Performed By: #### L 100.0010 #### ML - LABORATORY [address] [place] [address]456 Creatinine [Mass/Vol] 0.87 mg/dL Normal 0.70-1.20 [facility] Comment on above: Performed By: #### L 100.0010 #### ML - LABORATORY [address] [place] [address] 49795 eGFR if AFR FAHAD > 60 ml/min/1.73m2 Normal Replaced by [facility] Comment on above: Result Comment: eGFR >= [...] #### L 100.0010 #### ML - LABORATORY [address] [place] [address] 42548 eGFR nonAFR Fahad > 60 ml/Min/1.73m2 Normal U [facility] Comment on above: Performed By: #### L 100.0010 #### ML - LABORATORY [address] [place] [address] 55791 Glucose [Mass/Vol] 108 mg/dL Normal 82-115 [facility] Comment on above: Performed By: #### L 100.0010 #### ML - LABORATORY [address] [place] [address] 58974 Potassium [Moles/Vol] 4.4 mmol/L Normal 3.5-5.0 [facility] Comment on above: Performed By: #### L 100.0010 #### ML [facility] [address] [place] [address] 14241 Sodium [Moles/Vol] 138 mmol/L Normal 135-145 [facility] Comment on above: Performed By: #### L 100.0010 #### [facility] [address] [place] [address] 53298 Urea nitrogen [Mass/Vol] 22 mg/dL Normal 8-23 [facility] Comment on above: Performed By: #### L 100.0010 #### ML [facility] [address] [place] [address] 01253 CBCon 01-24-2022 BASO# 0.00 x10(3) Normal 0.00-0.10 [facility] Comment on above: Performed By: #### L 200.0010 #### ML [facility] [address] [place] [address] 89518 Basophils/100 WBC (Bld) 0.3 % Normal 0.0-1.0 Replaced by [facility] Comment on above: Performed By: #### L 200.0010 #### ML - LABORATORY [address] [place] [address] 54932 EOS# 0.00 x10(3) Normal 0.00-0.54 [facility] Comment on above: Performed By: #### L 200.0010 #### ML - LABORATORY [address] [place] [address] 55516 Eosinophils/100 WBC (Bld) 0.5 % Normal 0.5-4.9 [facility] Comment on above: Performed By: #### L 200.0010 #### ML - LABORATORY [address] [place] [address] 75278 Erythrocyte distribution width (RBC) [Ratio] 15.5 % High 12.7-15.3 [facility] Comment on above: Performed By: #### L 200.0010 #### ML [facility] [address] [place] [address] 29601 Hematocrit (Bld) [Volume fraction] 43.7 % Normal 42.0-51.0 [facility] Comment on above: Performed By: #### L 200.0010 #### ML [facility] [address] [place] [address] 21486 Hemoglobin (Bld) [Mass/Vol] 14.2 g/dL Normal 14.0-17.2 [facility] Comment on above: Performed By: #### L 200.0010 #### ML [facility] [address] [place] [address] 06334 LYMPH# 0.90 x10(3) Low 1.00-3.50 [facility] Comment on above: Performed By: #### L 200.0010 #### ML [facility] [address] [place] [address] 18435 Lymphocytes/100 WBC (Bld) 16.7 % Normal 16.0-48.0 [facility] Comment on above: Performed By: #### L 200.0010 #### ML [facility] [address] [place] [address] 21858 MCH (RBC) [Entitic mass] 30.4 pg Normal 28.8-32.2 [facility] Comment on above: Performed By: #### L 200.0010 #### ML [facility] [address] [place] [address] 27430 MCHC (RBC) [Mass/Vol] 32.6 g/dL Low 33.0-36.0 [facility] Comment on above: Performed By: #### L 200.0010 #### ML - LABORATORY [address] [place] [address] 35967 MCV (RBC) [Entitic vol] 93.4 fL Normal 80.0-94.0 Replaced by [facility] Comment on above: Performed By: #### L 200.0010 #### ML - LABORATORY [address] [place] [address] 68561 MONO# 0.50 x10(3) Normal 0.30-0.80 [facility] Comment on above: Performed By: #### L 200.0010 #### ML [facility] [address] [place] [address] 38747 Monocytes/100 WBC (Bld) 10.3 % Normal 4.3-11.2 Replaced by [facility] Comment on above: Performed By: #### L 200.0010 #### ML [facility] [address] [place] [address] 45273 NEUT# 3.70 x10(3) Normal 1.40-6.50 [facility] Comment on above: Performed By: #### L 200.0010 #### ML [facility] [address] [place] [address] 00312 Neutrophils/100 WBC (Bld) 72.2 % Normal 45.0-73.0 [facility] Comment on above: Performed By: #### L 200.0010 #### ML - LABORATORY [address] [place] [address] 13922 Platelet mean volume (Bld) [Entitic vol] 8.2 fL Normal 7.4-9.2 [facility] Comment on above: Performed By: #### L 200.0010 #### ML [facility] [address] [place] [address] 33433 PLT 205 X10(3) Normal 150-450 [facility] Comment on above: Performed By: #### L 200.0010 #### ML [facility] [address] [place] [address] 41629 RBC 4.68 x10(6) Low 4.80-5.50 [facility] Comment on above: Performed By: #### L 200.0010 #### ML - LABORATORY [address] [place] [address] 22953 WBC 5.2 x10(3) Normal 4.5-10.0 [facility] Comment on above: Performed By: #### L 200.0010 #### ML - LABORATORY [address] [place] [address] 56784 CHEST (TWO VIEWS) - CXRon CHEST (TWO VIEWS) - CXR [address] [address] Name: MIRI ACI Phys: CARSON BULLOCK III, D.O. : [birth year] Age: 76 Sex: M Acct: [id number] Loc: [facility] Exam Date: 01/24/22 Status: PRE [facility] Radiology No.: Unit Number: [id number] Exam # Type/Exam [id number] RAD / CHEST (TWO VIEWS) - CXR HISTORY: Osteoarthritis, preop COMPARISON: No diagnostic images are available. FINDINGS: The lungs and pleural spaces are clear. The pulmonary vasculature is unremarkable in appearance. The cardiac silhouette is within normal size limits. IMPRESSION: Clear lungs. Electronically signed By Allison Izaguirre MD 01/24/2022 12:19:33 PM EST Workstation ID : [id number] < > Reported By: ALLISON IZAGURIRE M.D. Signed In Fluency By: ALLISON IZAGUIRRE M.D. << Signature on File>> Reported By: ALLISON IZAGUIRRE M.D. Signed By: ALLISON IZAGUIRRE M.D. Tests performed at: [address] [address] Normal [facility] CNPNon 01-24-2022 CNPN Telephone (ORUPDO) MIRI CAI ([id number]) 1945 M Date Time Provider Department 01/24/22 CARSON BULLOCK III During your visit today, we recorded the following information about you: Ellen Davila RN 01/24/2022 11:26 AM Addendum I received a call from cardiology at [facility] regarding this patients EKG report. He is currently in atrial flutter due to stopping his Metoprolol and Eliquis yesterday with no recommendation from the prescribing physician. His phone is broken so he is planning on coming into our office today. I reached out to Araceli at [facility] pre-op to inform her of the above. DELPHINE Johnson RN 01/24/2022 11:25 AM Signed I called and spoke with Loan AKERS at Dr. Tony's office. They also received a call from the lab at [facility] regarding the results and advised that I instruct the patient to continue those two medications until indicated otherwise. Will notify him when he stops into the office. DELPHINE Johnson PA-C 01/24/2022 11:29 AM Signed Thank you for the update. LUIS FELIPE Modi RN 01/24/2022 3:39 PM Signed The patient [...] Status:Closed by ELLEN DAVILA on 01/24/22 Normal [facility] ELECTROCARDIOGRAMon 01-25-20 [place] [address] [facility]FORMATION [facility]NAGEMENT ELECTROCARDIOGRAM REPORT Patient: MIRI CAI Ordering: CARSON BULLOCK III, D.O. [id number] [age] M Exam Date: 01/24/22 Report #: [id number] Status: PRE SDC AMB Test Reason : [...] ECGs available Confirmed by JIM BEE MD ([id number]) on 01/24/2022 2:10:41 PM Referred By: Confirmed By:JIM BEE MD Signed in [employer] 01/24/22 1412 JIM BEE M.D. cc: << Signature on File>> Reported By: JIM BEE M.D. Signed By: JIM BEE M.D. Tests performed at: [place] [address] Normal [facility] PHYSICAL THERAPY REPORTon [facility] [address] [address] PHYSICAL THERAPY REPORT Patient: MIRI CAI CARSON BULLOCK III, D.O. [id number] [age] M Status: REG RCR PT [...] free to contact me here at the [facility]. Report#: Dict ID [id number] / Int ID [id number] cc: Carson Bullock III, DO Dictated By: DIAZ VAUGHAN DPT 01/29/22 1319 __ DIAZ VAUGHAN DPT CC: CARSON BULLOCK III, D.O. << Signature on File>> Reported By: DIAZ VAUGHAN DPT Signed By: DIAZ VAUGHAN DPT Tests performed at: [address] [id number] Normal [facility] 01-15-2022 CNPN Telephone (ORUPDO) MIRI CAI ([id number]) 1945 M Date Time Provider Department 01/15/22 CARSON BULLOCK III During your visit today, we recorded the following information about you: Hannah Pavon 01/15/2022 11:01 AM Signed Miri Cai 1945 Date of Surgery: 02/06/2022 Surgeon's Name: Carson Bullock III, DO Facility: [facility] Surgery: Left Reverse total shoulder arthroplasty; open biceps tenodesis Surgical Diagnosis: M19.012 Primary osteoarthritis of left shoulder (primary encounter diagnosis) S46.102A Injury of tendon of long head of left biceps, initial encounter M25.512, G89.29 Chronic left shoulder pain CPT Code: 20069, 46439 ICD 10: M19.012, S46.102 Ta Poe 01/15/2022 12:08 PM Signed Per Concha Beltran at [facility], [place] [id number] [place] [id number] does require an auth. Auth has been sent via PT PAL website and is pending; Call ref # [id number] Ta Poe 01/24/2022 12:22 PM Signed Per Concha Beltran at [facility], Approved; Auth # [id number] 01/15/2022-01/15/2023 Ta Poe Allergies As of Date: [...] Encounter Status:Closed by HANNAH PAVON on 01/24/22 [facility] So 01-11-2022 ANAIS Telephone (ORUPDO) NEGRITASHANTIMIRI Cecily ([id number]) 1945 M Date Time Provider Department 01/11/22 [...] hyperglycemia, with long-term current use of insulin ([facility]) [E08.65, Z79.4] Order(s):BASIC METABOLIC PNL [SQBMP] Order #: [id number] FUTURE CBC + DIFF [SQCBCDIF] Order #: [id number] FUTURE ECG COMPLETE [ECG01] Order #: [id number] FUTURE TYPE + SCREEN [SQTSCR] Order #: [id number] FUTURE UNION ORTH SURGICAL PROCEDURES [0531206] Order #: [id number] XR CHEST 2V FRONTAL/LAT [8110595] Order #: [id number] FUTURE HGB A1C [YYLTJ6F] Order #: [id number] FUTURE PRE-PROCEDURE AND PRE-OPERATIVE COVID [SQPOCOVD] Order #: [id number] FUTURE Prescriptions as of 01/12/2022 - ELIQUIS [...] Status:Closed by CARSON BULLOCK on 01/12/[address] [facility] [address] UPPER EXTREMITY WO CONTRA STon 01-10-2022 CT UPPER EXTREMITY WO CONTRAST [address] [address] Name: NEGRITA,MIRI C Phys: CARSON BULLOCK III, D.O. : [birth year] Age: 76 Sex: M Acct: [id number] Loc: RAD CT Exam Date: 01/10/22 Status: REG CLI Radiology No.: Unit Number: [id number] Exam # Type/Exam [id number] CT / CT UPPER EXTREMITY WO CONTRAST [...] FINDINGS: Mild acromioclavicular joint arthrosis noted. Severe trsm-wn-bmcg arthropathy noted in the glenohumeral joint. Large hypertrophic spurs and areas of subchondral sclerosis noted. Sclerotic lesion in the glenoid is likely a bone island. Degenerative changes seen in the spine. 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 Signed In Fluency By: VIJAY WALL M.D. << Signature on File>> Reported By: VIJAY WALL M.D. Signed By: VIJAY WALL M.D. Tests performed at: [address] [address] [facility] 12-26-2021 CNPN Telephone (ORUPDO) MIRI CAI ([id number]) 1945 M Date Time Provider Department 12/26/21 [...] Encounter Status:Closed by KERRI ABRAHAM on 01/01/22 [facility] CNOVon 12-25-2021 CNOV Office Visit (ORUPDO ) NEGRITAMIRI ([id number]) 1945 M Date Time Provider Department 12/25/21 11:15 AM CARSON BULLOCK III During your visit today, we recorded the following information about you: Pulse Blood pressure Weight Height 87/minute 175/93 83.9 kg 1.778 m Carson Bullock III, DO 12/31/2021 9:57 PM Signed ESTABLISHED PATIENT - [...] Laterality Date NON-MELANOMA SKIN CANCER TUMOR BOARD [facility] 10/2021 REMV CATARACT EXTRACAP,INSERT LENS [...] which included preparing to see the patient, tpbx-lo-izym patient care, completing clinical documentation, obtaining and/or reviewing separately obtained history, performing a medically appropriate examination, counseling and educating the patient/family/ (more content not included)... Normal [facility] So 12-25-2021 CNPN Telephone (ORUPDO) MIRI CAI ([id number]) 1945 M Date Time Provider Department 12/25/21 CARSON BULLOCK III During your visit today, we recorded the following information about you: Kerri Abraham 12/25/2021 4:08 PM Signed PLEASE OBTAIN AUTH FOR CT LEFT SHOULDER WITHOUT THANKS, KERRI Poe 12/26/2021 12:37 PM Signed Per Concha Beltran at [facility], No auth required since they are secondary to Medicare; Call ref # [id number] Ta Abraham 12/26/2021 2:13 PM Signed SCHEDULED [...] Encounter Status:Closed by KERRI ABRAHAM on 12/26/21 [facility] CNOVon 12-17-2021 CNOV Office Visit (ORUPDO ) MIRI CAI ([id number]) 1945 M Date Time Provider Department 12/17/21 [...] a high shelf. 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 Brandy Benoit scribe, transcribing for An Lee MD PAIN EVALUATION 12/17/2021 1318 Pain Level: 4 ALLERGIES No Known Allergies PAST MEDICAL HISTORY Diagnosis Date Arrhythmia Diabetes mellitus (HCC) Essential hypertension PAST SURGICAL HISTORY Procedure Laterality Date NON-MELANOMA SKIN CANCER TUMOR BOARD [facility] 10/2021 REMV CATARACT EXTRACAP,INSERT LENS [...] Pulse: pres (more content not included)... Normal [facility] BASIC METABOLIC PANELon 07- Anion gap [Moles/Vol] 7 mmol/L Normal 5-19 [facility] Comment on above: Performed By: #### L AB15 #### [facility] [address] [place] [address] [place] Calcium [Mass/Vol] 9.9 mg/dL Normal 8.4-10.2 [facility] Comment on above: Performed By: #### L AB15 #### [facility] [address] [place] [address] [place] Chloride [Moles/Vol] 103 mmol/L Normal 98-107 [facility] Comment on above: Performed By: #### L AB15 #### [facility] [address] [place] [address] [place] CO2 [Moles/Vol] 28 mmol/L Normal 22-[address] [facility] Comment on above: Performed By: #### L AB15 #### [facility] [address] [place] [address] [place] Creatinine [Mass/Vol] 1.10 mg/dL Normal 0.70-1.30 [facility] Comment on above: Performed By: #### L AB15 #### [facility] [address] [place] [address] [place] ESTIMATED GFR 69 mL/min/1.73m???2 Normal >60 [facility] Comment on above: Performed By: #### L [id number] #### [facility] [address] [place] [address] [place] Glucose [Mass/Vol] 101 mg/dL Normal 74-106 [facility] Comment on above: Performed By: #### L AB15 #### [facility] [address] [place] [address] [place] Narrative Estimated Glomerular Filtration Rate (eGFR) is calculated using the CKD-EPI (2020) equation, intended for patients 18 years of age and older. If gender is not documented or unknown, there will be no eGFR calculation. Abnormal [facility] Comment on above: Performed By: #### L AB15 #### [facility] [address] [place] [address] [place] Potassium [Moles/Vol] 4.5 mmol/L Normal 3.5-5.1 [facility] Comment on above: Performed By: #### L AB15 #### [facility] [address] [place] [address] [place] Sodium [Moles/Vol] 138 mmol/L Normal 137-145 [facility] Comment on above: Performed By: #### L [id number] #### [facility] [address] [place] [address] [place] Urea nitrogen [Mass/Vol] 26 mg/dL High 9-[address] [facility] Comment on above: Performed By: #### L [id number] #### [facility] [address] [place] [address] [place] Urea nitrogen/Creatinine [Mass ratio] 24 mg/mg High 6-[address] [facility] Comment on above: Performed By: #### L [id number] #### [facility] [address] [place] [address] [place] LYME DISEASE ANTIBODY, IMMUN OBLOT, SERUMon 09-27-2021 18 KD (IGG) BAND Reactive Abnormal [facility] Comment on above: Performed By: #### L [id number] #### [facility], [address] [place], [place] 23 KD (IGG) BAND Reactive Abnormal [facility] Comment on above: Performed By: #### L [id number] #### [facility], [address] [place], [place] 23 KD (IGM) BAND Reactive Abnormal [facility] Comment on above: Performed By: #### L [id number] #### [facility], [address] [place], [place] 28 KD (IGG) BAND Reactive Abnormal [facility] Comment on above: Performed By: #### L [id number] #### [facility], [id number] [place] [address] 30 KD (IGG) BAND Reactive Abnormal [facility] Comment on above: Performed By: #### L [id number] #### [facility], [address] [place] [address] 39 KD (IGG) BAND Reactive Abnormal [facility] Comment on above: Performed By: #### L [id number] #### [facility], [address] [place] [address] 39 KD (IGM) BAND Reactive Abnormal [facility] Comment on above: Performed By: #### L [id number] #### [facility], [address] [place] [address] 41 KD (IGG) BAND Reactive Abnormal [facility] Comment on above: Performed By: #### L [id number] #### [facility], [address] [place] [address] 41 KD (IGM) BAND Reactive Abnormal [facility] Comment on above: Result Comment: As per [...] Equivocal result in a screening assay. [facility] [place], Article 1 of Chapter 5 of Title 32.1, section 32.1-137.06, requires that the following language must be included on every Lyme disease test report issued by a [place] laboratory: Patients undergoing a Lyme disease test should be aware that Lyme disease tests vary and may produce results that are inaccurate. This means a patient may not be able to rely on a positive or negative result. Health care providers are encouraged to discuss Lyme disease test results with the patient for whom the test was ordered. Performed By: #### L [id number] #### [facility], [address] [place] [address] [address] [place], [place] 45 KD (IGG) BAND Reactive Abnormal [facility] Comment on above: Performed By: #### L [id number] #### [facility], [address] [place] [address] [address] [place], [place] 58 KD (IGG) BAND Reactive Abnormal [facility] Comment on above: Performed By: #### L [id number] #### [facility], [address] [place] [address] [address] [place], [place] 66 KD (IGG) BAND Reactive Abnormal [facility] Comment on above: Performed By: #### L [id number] #### [facility], [address] [place] [address] [address] [place], [place] 93 KD (IGG) BAND Reactive Abnormal [facility] Comment on above: Performed By: #### L [id number] #### [facility], [address] [facility] LYME DISEASE AB(IGG),BLOT Positive Abnormal Negative [facility] Comment on above: Performed By: #### L [id number] #### [facility], [address] [place], [place] LYME DISEASE AB(IGM),BLOT Positive Abnormal Negative [facility] Comment on above: Performed By: #### L [id number] #### [facility], [address] [place] [address] [address] [place], [place] SURGICALon 09-12-2021 SURGICAL SCALP, BIOPSY OF [...] CORTES D.O -------- MICROSCOPIC DESCRIPTION: Slide(s) reviewed. [facility] 09/14/2021 GROSS DESCRIPTION: The specimen is [...] 6 x 6 x 2 mm (3,ns). [facility] 09/13/2021 CLINICAL DATA: PROCEDURE: A. Biopsy [...] Signed* AN CORTES D.O 09/14/21 1532 -------- [facility] Comment on above: Performed By: #### P -S #### [facility] [address] [place] [address] CBC WITH DIFFon 08-29-2021 BASOPHIL # 0.00 x10???3/uL Normal 0.00-0.[address] [facility] Comment on above: Performed By: #### L [id number] #### [facility] [address] [place] [address] [place] Basophils/100 WBC (Bld) 1 % Normal 0-2 [facility] Comment on above: Performed By: #### L [id number] #### [facility] [facility] [address] [place] [address] [place] EOSINOPHIL # 0.00 x10???3/uL Normal 0.00-0.60 [facility] Comment on above: Performed By: #### L [id number] #### [facility] [address] [place] [address] US Eosinophils/100 WBC (Bld) 1 % Normal 0-[address] [facility] Comment on above: Performed By: #### L [id number] #### [facility] [address] [place] [address] [place] Erythrocyte distribution width (RBC) [Ratio] 14.3 % High 11.5-14.[address] [facility] Comment on above: Performed By: #### L [id number] #### [facility] [address] [place] [address] [place] Hematocrit (Bld) [Volume fraction] 39.2 % Normal 36.0-46.[address] [facility] Comment on above: Performed By: #### L [id number] #### [facility] [address] [place] [address] [place] Hemoglobin (Bld) [Mass/Vol] 13.2 g/dL Low 13.9-16.[address] [facility] Comment on above: Performed By: #### L [id number] #### [facility] [address] [place] [address] [place] LYMPHOCYTE # 0.80 x10???3/uL Low 1.10-3.80 [facility] Comment on above: Performed By: #### L [id number] #### [facility] [address] [place] [address] US Lymphocytes/100 WBC (Bld) 13 % Low 19-[address] [facility] Comment on above: Performed By: #### L [id number] #### [facility] [address] [place] [address] [place] MCH (RBC) [Entitic mass] 29.9 pg Normal 25.4-34.[address] [facility] Comment on above: Performed By: #### L [id number] #### [facility] [address] [place] [address] [place] MCHC (RBC) [Mass/Vol] 33.7 g/dL Normal 30.0-37.0 [facility] Comment on above: Performed By: #### L [id number] #### [facility] [address] [place] [address] US MCV (RBC) [Entitic vol] 88.8 fL Normal 80.0-100.0 [facility] Comment on above: Performed By: #### L [id number] #### [facility] [address] [place] [address] US MONOCYTE # 0.80 x10???3/uL Normal 0.10-0.[address] [facility] Comment on above: Performed By: #### L [id number] #### [facility] [address] [place] [address] US Monocytes/100 WBC (Bld) 13 % High 4-12 [facility] Comment on above: Performed By: #### L [id number] #### [facility] [address] [place] [address] US NEUTROPHIL # 4.50 x10???3/uL Normal 1.80-7.50 [facility] Comment on above: Performed By: #### L [id number] #### [facility] [address] [place] [address] US Neutrophils/100 WBC (Bld) 73 % High 41-[address] [facility] Comment on above: Performed By: #### L [id number] #### [facility] [address] [place] [address] [place] Platelet mean volume (Bld) [Entitic vol] 7.2 fL Low 7.5-11.[address] [facility] Comment on above: Performed By: #### L [id number] #### [facility] [address] [place] [address] US PLATELETS AUTOMATED 369 x10???3/uL Normal 130-400 [facility] Comment on above: Performed By: #### L [id number] #### [facility] [address] [place] [address] US RBC AUTOMATED 4.41 x10???6/uL Normal 4.30-5.90 [facility] Comment on above: Performed By: #### L [id number] #### [facility] [address] [place] [address] US WBC AUTOMATED CORRECTED 6.1 x10???3/uL Normal 4.5-11.[address] [facility] Comment on above: Performed By: #### L [id number] #### [facility] [address] [place] [address] [place] [facility] Albumin [Mass/Vol] 4.4 g/dL Normal 3.5-5.0 [facility] Comment on above: Performed By: #### L [id number] #### [facility] [address] [place] [address] [place] Albumin/Globulin [Mass ratio] 1.2 {ratio} Low 1.5-2.[address] [facility] Comment on above: Performed By: #### L [id number] #### [facility] [address] [place] [address] [place] ALP [Catalytic activity/Vol] 73 U/L Normal 38-[address] [facility] Comment on above: Performed By: #### L [id number] #### [facility] [address] [place] [address] [place] ALT [Catalytic activity/Vol] 33 U/L Normal 10-[address] [facility] Comment on above: Performed By: #### L [id number] #### [facility] [address] [place] [address] [place] Anion gap [Moles/Vol] 7 mmol/L Normal 5-19 [facility] Comment on above: Performed By: #### L [id number] #### [facility] [address] [place] [address] [place] AST [Catalytic activity/Vol] 50 U/L Normal 17-[address] [facility] Comment on above: Performed By: #### L [id number] #### [facility] [address] [place] [address] US Bilirubin [Mass/Vol] 0.6 mg/dL Normal 0.2-1.3 [facility] Comment on above: Performed By: #### L [id number] #### [facility] [address] [place] [address] [place] Calcium [Mass/Vol] 9.3 mg/dL Normal 8.4-10.2 [facility] Comment on above: Performed By: #### L [id number] #### [facility] [address] [place] [address] [place] Chloride [Moles/Vol] 93 mmol/L Low 98-107 [facility] Comment on above: Performed By: #### L [id number] #### [facility] [address] [place] [address] [place] CO2 [Moles/Vol] 29 mmol/L Normal 22-[address] [facility] Comment on above: Performed By: #### L [id number] #### [facility] [address] [place] [address] [place] Creatinine [Mass/Vol] 0.80 mg/dL Normal 0.70-1.30 [facility] Comment on above: Performed By: #### L [id number] #### [facility] [address] [place] [address] [place] ESTIMATED GFR 86 mL/min/1.73m???2 Normal >60 [facility] Comment on above: Performed By: #### L [id number] #### [facility] [address] [place] [address] [place] Glucose [Mass/Vol] 100 mg/dL Normal 74-106 [facility] Comment on above: Performed By: #### L [id number] #### [facility] [address] [place] [address] [place] Narrative Estimated Glomerular Filtration Rate (eGFR) calculated using the CKD-EPI (2009) equation, intended for patients 18 years of age and older. If race and/or gender is not documented or unknown, there will be no eGFR calculation. Abnormal [facility] Comment on above: Performed By: #### L [id number] #### [facility] [address] [place] [address] [place] Potassium [Moles/Vol] 4.6 mmol/L Normal 3.5-5.1 [facility] Comment on above: Performed By: #### L [id number] #### [facility] [address] [place] [address] [place] Protein [Mass/Vol] 8.2 g/dL Normal 6.3-8.2 [facility] Comment on above: Performed By: #### L [id number] #### [facility] [address] [place] [address] [place] Sodium [Moles/Vol] 129 mmol/L Low 137-145 [facility] Comment on above: Performed By: #### L [id number] #### [facility] [address] [place] [address] [place] Urea nitrogen [Mass/Vol] 20 mg/dL Normal - [facility] Comment on above: Performed By: #### L [id number] #### [facility] [address] [place] [address] [place] Urea nitrogen/Creatinine [Mass ratio] 25 mg/mg High - [facility] Comment on above: Performed By: #### L [id number] #### [facility] [address] [place] [address] [place] HGA1C (HEMOGLOBIN A1C WITH E ST AVG GLUCOSE)on 08-29-2021 Glucose [Mass/Vol] 140 mg/dL Normal [facility] Comment on above: Performed By: #### L [id number] #### [place] [address] HbA1c (Bld) [Mass fraction] 6.5 % High 4.0-5.[address] [facility] Comment on above: Performed By: #### L [id number] #### [place] [address] [facility] Comment on above: Result Comment: ADA endorsed glycated hemoglobin decision points: >5.6% prediabetic; >6.4% diabetic. An evidence-based therapeutic goal of <7.0% is suggested by the ADA to reduce microvascular and neuropathic complications of type 1 and type 2 diabetes, but clinical goals may vary in different clinical situations. There are no age/gender specific ranges for eAG. Performed By: #### L [id number] #### [place] [address] LIPID PANELon 08-29-2021 Cholesterol [Mass/Vol] 187 mg/dL Normal <200 [facility] Comment on above: Performed By: #### L [id number] #### [facility] [address] [place] [address] US Cholesterol in HDL [Mass/Vol] 44 mg/dL Normal 40-[address] [facility] Comment on above: Performed By: #### L [id number] #### [facility] [address] [place] [address] US Cholesterol in LDL [Mass/Vol] 121 mg/dL High <[address] [facility] Comment on above: Performed By: #### L [id number] #### [facility] [address] [place] [address] US Triglyceride [Mass/Vol] 109 mg/dL Normal <150 [facility] Comment on above: Performed By: #### L [id number] #### [facility] [address] [place] [address] US THYROID STIMULATING HORMONE WITH FREE T4 REFLEXon 08-29-2021 TSH (ALINITY) 4.570 uIU/mL High 0.430-3.[address] [facility] Comment on above: Performed By: #### L [id number] #### [place] [address] THYROXINE, FREE (FREE T4)on 08-29-2021 Free T4 [Mass/Vol] 0.85 ng/dL Normal 0.70-1.25 [facility] Comment on above: Performed By: #### L [id number] #### [place] [address] A1Con 02-20-2021 HbA1c (Bld) [Mass fraction] 6.1 % High 4.0-6.0 [facility] Comment on above: Performed By: #### P I, A1C, TSHR #### [facility] [address] [place] [address] BASIC METABOLIC PANELon 02-09 Anion gap [Moles/Vol] 4 mmol/L Low 5-19 [facility] Comment on above: Performed By: #### P I, A1C, TSHR #### [facility] [address] [place] [address] Calcium [Mass/Vol] 9.7 mg/dL Normal 8.4-10.2 [facility] Comment on above: Performed By: #### P I, A1C, TSHR #### [facility] [address] [place] [address] Chloride [Moles/Vol] 104 mmol/L Normal 98-107 [facility] Comment on above: Performed By: #### P I, A1C, TSHR #### [facility] [address] [place] [address]260 CO2 [Moles/Vol] 30 mmol/L Normal 22-30 [facility] Comment on above: Performed By: #### P I, A1C, TSHR #### [facility] [address] [place] [address]77 Creatinine [Mass/Vol] 0.80 mg/dL Normal 0.66-1.25 [facility] Comment on above: Performed By: #### P I, A1C, TSHR #### [facility] [address] [place] [address] eGFR AM. >60 Normal >60 [facility] Comment on above: Performed By: #### P I, A1C, TSHR #### [facility] [address] [place] [address] eGFR NON AM. >60 Normal >60 [facility] Comment on above: Performed By: #### P I, A1C, TSHR #### [facility] [address] [place] [address] Glucose [Mass/Vol] 84 mg/dL Normal 74-106 [facility] Comment on above: Performed By: #### P I, A1C, TSHR #### [facility] [address] [place] [address] Potassium [Moles/Vol] 4.6 mmol/L Normal 3.5-5.1 [facility] Comment on above: Performed By: #### P I, A1C, TSHR #### [facility] [address] [place] [address] Sodium [Moles/Vol] 138 mmol/L Normal 137-145 [facility] Comment on above: Performed By: #### P I, A1C, TSHR #### [facility] [address] [place] [address] Urea nitrogen [Mass/Vol] 20 mg/dL Normal 9-20 [facility] Comment on above: Performed By: #### P I, A1C, TSHR #### [facility] [address] [place] [address] Urea nitrogen/Creatinine [Mass ratio] 24.5 mg/mg High 6-20 [facility] Comment on above: Performed By: #### P I, A1C, TSHR #### [facility] [address] [place] [address] TSH WITH REFLEXon 02-20-2021 TSH Qn 4.430 m[IU]/L Normal 0.465-4.68 [facility] Comment on above: Performed By: #### A 1C, LPIP, ABC, TSH, MCMP, FRT4, ADIF #### [facility] [address] [place] [address] KNEE 3 VIEWS RIGHTon 021 KNEE 3 VIEWS RIGHT [id number] Signs/Symptoms: OFFICE VISIT//PAIN History: PAIN KNEE 3 [...] 11/02/2020 13:21 by: Bryan Gordon Order Number: [id number] Normal [facility] A1Con 10-23-2020 HbA1c (Bld) [Mass fraction] 6.7 % High 4.0-6.0 [facility] Comment on above: Performed By: #### A 1C, LPIP, ABC, TSH, MCMP, FRT4, ADIF #### [facility] [address] [place] [address]684 AUTOMATED BLOOD COUNTon 10-10 Erythrocyte distribution width (RBC) [Ratio] 13.7 % Normal 11.5-14.5 [facility] Comment on above: Performed By: #### A 1C, LPIP, ABC, TSH, MCMP, FRT4, ADIF #### [facility] [address] [place] [address]48 Hematocrit (Bld) [Volume fraction] 41.5 % Normal 39-55 [facility] Comment on above: Performed By: #### A 1C, LPIP, ABC, TSH, MCMP, FRT4, ADIF #### [facility] [address] [place] [address]259 Hemoglobin (Bld) [Mass/Vol] 14.3 g/dL Normal 13.9-16.3 [facility] Comment on above: Performed By: #### A 1C, LPIP, ABC, TSH, MCMP, FRT4, ADIF #### [facility] [address] [place] [address] 16079 MCH (RBC) [Entitic mass] 33.0 pg Normal 25.4-34.6 [facility] Comment on above: Performed By: #### A 1C, LPIP, ABC, TSH, MCMP, FRT4, ADIF #### [facility] [address] [facility] [place] [address] MCHC (RBC) [Mass/Vol] 34.5 g/dL Normal 30-37 [facility] Comment on above: Performed By: #### A 1C, LPIP, ABC, TSH, MCMP, FRT4, ADIF #### [facility] [address] [place] [address]506 MCV (RBC) [Entitic vol] 95.7 fL Normal 80-100 [facility] Comment on above: Performed By: #### A 1C, LPIP, ABC, TSH, MCMP, FRT4, ADIF #### [facility] [address] [place] [address] 31298 Platelets (Bld) [#/Vol] 244 10*3/uL Normal 130-400 [facility] Comment on above: Performed By: #### A 1C, LPIP, ABC, TSH, MCMP, FRT4, ADIF #### [facility] [address] [place] [address] 00989 RBC (Bld) [#/Vol] 4.33 10*6/uL Normal 4.3-5.9 [facility] Comment on above: Performed By: #### A 1C, LPIP, ABC, TSH, MCMP, FRT4, ADIF #### [facility] [address] [place] [address] 24694 WBC (Bld) [#/Vol] 7.1 10*3/uL Normal 4.5-11.5 [facility] Comment on above: Performed By: #### A 1C, LPIP, ABC, TSH, MCMP, FRT4, ADIF #### [facility] [address] [place] [address]21 COMP METABOLIC PANELon 10-23 Albumin [Mass/Vol] 3.8 g/dL Normal 3.5-5.0 [facility] Comment on above: Performed By: #### A 1C, LPIP, ABC, TSH, MCMP, FRT4, ADIF #### [facility] [address] [place] [address] 30922 Albumin/Globulin [Mass ratio] 1.2 {ratio} Low 1.5-2.5 [facility] Comment on above: Performed By: #### A 1C, LPIP, ABC, TSH, MCMP, FRT4, ADIF #### [facility] [address] [place] [address] 59005 ALK PHOS 84 U/L Normal 38-126 [facility] Comment on above: Performed By: #### A 1C, LPIP, ABC, TSH, MCMP, FRT4, ADIF #### [facility] [address] [place] [address] 27727 ALT [Catalytic activity/Vol] 42 U/L Normal <50 [facility] Comment on above: Performed By: #### A 1C, LPIP, ABC, TSH, MCMP, FRT4, ADIF #### [facility] [address] [place] [address]40 Anion gap [Moles/Vol] 9 mmol/L Normal 5-19 [facility] Comment on above: Performed By: #### A 1C, LPIP, ABC, TSH, MCMP, FRT4, ADIF #### [facility] [address] [place] [address] 01277 AST [Catalytic activity/Vol] 42 U/L Normal 17-59 [facility] Comment on above: Performed By: #### A 1C, LPIP, ABC, TSH, MCMP, FRT4, ADIF #### [facility] [address] [place] [address]12 Bilirubin [Mass/Vol] 0.7 mg/dL Normal 0.2-1.3 [facility] Comment on above: Performed By: #### A 1C, LPIP, ABC, TSH, MCMP, FRT4, ADIF #### [facility] [address] [place] [address] Calcium [Mass/Vol] 9.9 mg/dL Normal 8.4-10.2 [facility] Comment on above: Performed By: #### A 1C, LPIP, ABC, TSH, MCMP, FRT4, ADIF #### [facility] [address] [place] [address] Chloride [Moles/Vol] 101 mmol/L Normal 98-107 [facility] Comment on above: Performed By: #### A 1C, LPIP, ABC, TSH, MCMP, FRT4, ADIF #### [facility] [address] [place] [address] 17812 CO2 [Moles/Vol] 27 mmol/L Normal 22-30 [facility] Comment on above: Performed By: #### A 1C, LPIP, ABC, TSH, MCMP, FRT4, ADIF #### [facility] [address] [place] [address] 19931 Creatinine [Mass/Vol] 0.90 mg/dL Normal 0.66-1.25 [facility] Comment on above: Performed By: #### A 1C, LPIP, ABC, TSH, MCMP, FRT4, ADIF #### [facility] [address] [place] [address] 53611 eGFR AM. >60 Normal >60 [facility] Comment on above: Performed By: #### A 1C, LPIP, ABC, TSH, MCMP, FRT4, ADIF #### [facility] [address] [place] [address] 32314 eGFR NON AM. >60 Normal >60 [facility] Comment on above: Performed By: #### A 1C, LPIP, ABC, TSH, MCMP, FRT4, ADIF #### [facility] [address] [facility] [place] [address] Glucose [Mass/Vol] 102 mg/dL Normal 74-106 [facility] Comment on above: Performed By: #### A 1C, LPIP, ABC, TSH, MCMP, FRT4, ADIF #### [facility] [address] [facility] [place] [address] Potassium [Moles/Vol] 5.1 mmol/L Normal 3.5-5.1 [facility] Comment on above: Performed By: #### A 1C, LPIP, ABC, TSH, MCMP, FRT4, ADIF #### [facility] [address] [place] [address] Protein [Mass/Vol] 6.9 g/dL Normal 6.3-8.2 [facility] Comment on above: Performed By: #### A 1C, LPIP, ABC, TSH, MCMP, FRT4, ADIF #### [facility] [address] [place] [address] 93587 Sodium [Moles/Vol] 137 mmol/L Normal 137-145 [facility] Comment on above: Performed By: #### A 1C, LPIP, ABC, TSH, MCMP, FRT4, ADIF #### [facility] [address] [facility] [place] [address] Urea nitrogen [Mass/Vol] 21 mg/dL High 9-20 [facility] Comment on above: Performed By: #### A 1C, LPIP, ABC, TSH, MCMP, FRT4, ADIF #### [facility] [address] [facility] [place] [address] Urea nitrogen/Creatinine [Mass ratio] 22.7 mg/mg High 6-20 [facility] Comment on above: Performed By: #### A 1C, LPIP, ABC, TSH, MCMP, FRT4, ADIF #### [facility] [address] [facility] [place] [address] DIFFERENTIALon 10-23-2020 ABSOLUTE NEUTROPHILS DO NO 5.5 K/UL Normal 1.8-7.5 [facility] Comment on above: Performed By: #### A 1C, LPIP, ABC, TSH, MCMP, FRT4, ADIF #### [facility] [address] [facility] [place] [address] Basophils (Bld) [#/Vol] 0.0 10*3/uL Normal 0-0.2 [facility] Comment on above: Performed By: #### A 1C, LPIP, ABC, TSH, MCMP, FRT4, ADIF #### [facility] [address] [facility] [place] [address] Basophils/100 WBC (Bld) 0.6 % Normal 0.0-2.3 [facility] Comment on above: Performed By: #### A 1C, LPIP, ABC, TSH, MCMP, FRT4, ADIF #### [facility] [address] [facility] [place] [address] DIFF TYPE AUTO Normal [facility] Comment on above: Performed By: #### A 1C, LPIP, ABC, TSH, MCMP, FRT4, ADIF #### [facility] [address] [facility] [place] [address] Eosinophils (Bld) [#/Vol] 0.1 10*3/uL Normal 0-0.6 [facility] Comment on above: Performed By: #### A 1C, LPIP, ABC, TSH, MCMP, FRT4, ADIF #### [facility] [address] [facility] [place] [address] Eosinophils/100 WBC (Bld) 1.5 % Normal 0.1-4.5 [facility] Comment on above: Performed By: #### A 1C, LPIP, ABC, TSH, MCMP, FRT4, ADIF #### [facility] [address] [facility] [place] [address] Lymphocytes (Bld) [#/Vol] 0.9 10*3/uL Low 1.1-3.8 [facility] Comment on above: Performed By: #### A 1C, LPIP, ABC, TSH, MCMP, FRT4, ADIF #### [facility] [address] [place] [address] Lymphocytes/100 WBC (Bld) 12.4 % Low 18.5-46.9 [facility] Comment on above: Performed By: #### A 1C, LPIP, ABC, TSH, MCMP, FRT4, ADIF #### [facility] [address] [place] [address] Monocytes (Bld) [#/Vol] 0.5 10*3/uL Normal 0.1-0.8 [facility] Comment on above: Performed By: #### A 1C, LPIP, ABC, TSH, MCMP, FRT4, ADIF #### [facility] [address] [place] [address] Monocytes/100 WBC (Bld) 7.6 % Normal 4.2-12.4 [facility] Comment on above: Performed By: #### A 1C, LPIP, ABC, TSH, MCMP, FRT4, ADIF #### [facility] [address] [place] [address] Neutrophils/100 WBC (Bld) 77.9 % High 41.3-69.5 [facility] Comment on above: Performed By: #### A 1C, LPIP, ABC, TSH, MCMP, FRT4, ADIF #### [facility] [address] [place] [address] LIPID PANELon 10-23-2020 Cholesterol [Mass/Vol] 142 mg/dL Normal 0-200 [facility] Comment on above: Performed By: #### A 1C, LPIP, ABC, TSH, MCMP, FRT4, ADIF #### [facility] [address] [place] [address] Cholesterol in HDL [Mass/Vol] 44 mg/dL Normal >40 [facility] Comment on above: Performed By: #### A 1C, LPIP, ABC, TSH, MCMP, FRT4, ADIF #### [facility] [address] [place] [address] Cholesterol in LDL [Mass/Vol] 80 mg/dL Normal <100 [facility] Comment on above: Performed By: #### A 1C, LPIP, ABC, TSH, MCMP, FRT4, ADIF #### [facility] [address] [place] [address] Triglyceride [Mass/Vol] 92 mg/dL Normal <150 [facility] Comment on above: Performed By: #### A 1C, LPIP, ABC, TSH, MCMP, FRT4, ADIF #### [facility] 1 [facility] [place] [address] T4,FREEon 10-23-2020 Free T4 [Mass/Vol] 1.09 ng/dL Normal 0.78-2.19 [facility] Comment on above: Performed By: #### A 1C, LPIP, ABC, TSH, MCMP, FRT4, ADIF #### [facility] [address] [place] [address] TSH, 3RD GENERATIONon 2020 TSH, 3RD GENERATION 6.630 mIU/L High 0.465-4.68 [facility] Comment on above: Performed By: #### A 1C, LPIP, ABC, TSH, MCMP, FRT4, ADIF #### [facility] [address] [place] [address] LYPCRon 07-11-2019 Lyme CSF Source PLASMA Normal [facility] ([place]) Comment on above: Result Comment: Perf ormed By: [facility] [address] [place] [address] Picking Crew Supervisor: Jose Ramon Rouse III#: [id number] Phone#: Performed By: #### L LOYDA HERRERAWWm, LYPCR ####[facility] [place] [address] Lyme PCR NOT DETECTED Normal [facility] ([place]) Comment on above: Result Comment: (NOT E) NOT DETECTED - A negative result does not rule out the presence of PCR inhibitors in the patient specimen or assay specific nucleic acid in concentrations below the level of detection by the assay. INTERPRETIVE INFORMATION: Borrelia Species DNA Detection by PCR Test developed and characteristics determined by [employer]. See Compliance Statement B: [employer]/CS Performed by [employer], [facility] [place] [address] [email or web address], Sebastian Bruce MD, Lab. Director Performed By: #### L JAVIER, LYMEWB, LYPCR ####[address] [address] .Auto Diffon 07-07-2019 Ammonia (P) [Mass/Vol] 0.50 10 3/mcL Normal 0.09-1.40 [facility] ([place]) Comment on above: Performed By: #### B UN, CRE, GFR #### [address] [address] Basophils (Bld) [#/Vol] 0.00 10 3/mcL Normal 0.00-0.27 [facility] ([place]) Comment on above: Performed By: #### B UN, CRE, GFR #### [address] [address] Basophils/100 WBC (Bld) 0.1 % Normal 0.0-2.5 A [facility] ([place]) Comment on above: Performed By: #### B UN, CRE, GFR #### [address] [address] Eosinophils (Bld) [#/Vol] 0.10 10 3/mcL Normal 0.00-0.65 [facility] ([place]) Comment on above: Performed By: #### B UN, CRE, GFR #### [address] [address] Eosinophils/100 WBC (Bld) 2.5 % Normal 0.0-6.0 [facility] ([place]) Comment on above: Performed By: #### B UN, CRE, GFR #### [address] [address] Lymphocytes (Bld) [#/Vol] 0.90 10 3/mcL Normal 0.90-4.32 [facility] ([place]) Comment on above: Performed By: #### B UN, CRE, GFR #### [address] [address] Lymphocytes/100 WBC (Bld) 17.1 % Low 20.0-40.0 [facility] ([place] Comment on above: Performed By: #### B UN, CRE, GFR #### [address] [address] Monocytes/100 WBC (Bld) 9.6 % Normal 2.0-13.0 A [facility] ([place] Comment on above: Performed By: #### B UN, CRE, GFR #### [address] [address] Neutrophils/100 WBC (Bld) 70.7 % Normal 50.0-75.0 [facility] ([place] Comment on above: Performed By: #### B UN, CRE, GFR #### [address] [address] .GFRon 07-07-2019 GFR >60 Normal [facility] ([place]) Comment on above: Result Comment: GFR Population [...] By: #### B UN, CRE, GFR #### [address] [address] GFR Non- >60 Normal [facility] ([place] Comment on above: Result Comment: GFR Population [...] By: #### B UN, CRE, GFR #### [address] [address] .NEUABSon 07-07-2019 Neutrophils (Bld) [#/Vol] 3.60 10 3/mcL Normal 2.25-8.10 [facility] ([place] Comment on above: Performed By: #### B UN, CRE, GFR #### [address] [address] BMPon 07-07-2019 Creatinine [Mass/Vol] 1.05 mg/dL Normal 0.60-1.40 [facility] ([place]) Comment on above: Performed By: #### B UN, CRE, GFR #### [place] [address] Urea nitrogen/Creatinine [Mass ratio] 20.0 ratio Normal 10.0-22.0 [facility] ([place] Comment on above: Performed By: #### B UN, CRE, GFR #### [address] [address] Calcium [Mass/Vol] 8.8 mg/dL Normal 8.4-10.1 [facility] [place] Comment on above: Performed By: #### B UN, CRE, GFR #### [address] [address] Chloride [Moles/Vol] 105 mmol/L Normal 98-110 [facility] ([place] Comment on above: Performed By: #### B UN, CRE, GFR #### [address] [address] CO2 [Moles/Vol] 27 mmol/L Normal 22-32 [facility] ([place] Comment on above: Performed By: #### B UN, CRE, GFR #### [address] [address] Electrolyte Balance 6.0 mEq/L Normal 4.0-15.0 [facility] ([place] Comment on above: Performed By: #### B UN, CRE, GFR #### [address] [address] Glucose [Mass/Vol] 107 mg/dL Normal 82-115 [facility] [place] Comment on above: Performed By: #### B UN, CRE, GFR #### [address] [address] Potassium [Moles/Vol] 4.2 mmol/L Normal 3.5-5.0 [facility] ([place] Comment on above: Performed By: #### B UN, CRE, GFR #### [address] [address] Sodium [Moles/Vol] 138 mmol/L Normal 136-145 [facility] [place] Comment on above: Performed By: #### B UN, CRE, GFR #### [address] [address] Urea nitrogen [Mass/Vol] 21.0 mg/dL Normal 8.0-22.0 [facility] ([place] Comment on above: Performed By: #### B UN, CRE, GFR #### [address] [address] CBCon 07-07-2019 Erythrocyte distribution width (RBC) [Ratio] 13.9 % Normal 11.5-15.5 [facility] ([place] Comment on above: Performed By: #### B UN, CRE, GFR #### [address] [address] Hematocrit (Bld) [Volume fraction] 40.0 % Normal 40.0-52.0 [facility] ([place] Comment on above: Performed By: #### B UN, CRE, GFR #### [address] [address] Hemoglobin (Bld) [Mass/Vol] 13.8 G/dL Normal 13.0-17.5 [facility] ([place] Comment on above: Performed By: #### B UN, CRE, GFR #### [address] [address] MCH (RBC) [Entitic mass] 33.7 pg High 27.0-33.0 [facility] ([place] Comment on above: Performed By: #### B UN, CRE, GFR #### [address] [address] MCHC (RBC) [Mass/Vol] 34.5 G/dL Normal 32.0-36.0 [facility] ([place]) Comment on above: Performed By: #### B UN, CRE, GFR #### [place] [id number] MCV (RBC) [Entitic vol] 97.6 fL Normal 81.0-100.0 [facility] ([place] Comment on above: Performed By: #### B UN, CRE, GFR #### [place] [id number] Platelet mean volume (Bld) [Entitic vol] 7.9 fL Normal 6.4-10.5 [facility] ([place] Comment on above: Performed By: #### B UN, CRE, GFR #### [place] [id number] Platelets (Bld) [#/Vol] 168 10 3/mcL Normal 150-450 [facility] ([place] Comment on above: Performed By: #### B UN, CRE, GFR #### [place] [id number] RBC (Bld) [#/Vol] 4.10 10 6/mcL Low 4.50-6.00 [facility] ([place] Comment on above: Performed By: #### B UN, CRE, GFR #### [place] [id number] WBC (Bld) [#/Vol] 5.10 10 3/mcL Normal 4.50-10.80 [facility] ([place]) Comment on above: Performed By: #### B UN, CRE, GFR #### [address] [address] LMERLYon 07-07-2019 [facility]yme [facility]M [facility] Comment on above: Result Comment: Pres ence of detectable Borrelia burgdorferi antibodies. Current testing guidelines recommend that all positive results be supplemented by further testing in a standardized Western Blot assay. Lyme Western Blot confirmation test has been ordered and billed. Performed By: [facility] [employer] [address] [place] [address] Picking Crew Supervisor: Robin Delgado III, M.D. CLIA#: [id number] Phone#: Performed By: #### LOYDA CLARKWWm, LYPCR ####[place] [address] LYMEWBon 07-07-2019 Lyme IgG Bands p45,p41,p23,p18 Normal [facility] ([place]) Comment on above: Result Comment: CDC criteria for a positive Western blot are the presence of >= 5 bands for IgG. Performed By: [facility] [employer] [address] [place] [address] Picking Crew Supervisor: Robin Delgado III, M.D. CLIA#: [id number] Phone#: Performed By: #### LOYDA CLARKWWm, LYPCR ####[place] [address] Lyme IgG Western Blot Negative Normal [facility] ([place] Comment on above: Result Comment: Perf ormed By: [facility] [employer] [address] [place] [address] Picking Crew Supervisor: Robin Delgado III, M.D. CLIA#: [id number] Phone#: Performed By: #### LOYDA CLARKWB, LYPCR ####[place] [id number] Lyme IgM Bands p41,p23 Normal [facility] ([place] Comment on above: Result Comment: CDC criteria for a positive Western blot are the presence of >= 2 bands for IgM. Performed By: [facility] [address] [place] [address] Picking Crew Supervisor: Robin Delgado III, M.D. CLIA#: [id number] Phone#: Performed By: #### MARYCARMEN CLARK LYPCR ####[address] [address] Lyme IgM Western Blot Positive NEGAT [facility] ([place]) Comment on above: Result Comment: Perf ormed By: [facility] [place] [address] Picking Crew Supervisor: Robin Delgado III, M.D. CLIA#: [id number] Phone#: Performed By: #### MARYCARMEN CLARK LYPCR ####[address] [address] Lyme Interpretation See Below Normal [facility] ([place]) Comment on above: Result Comment: IgM antibodies [...] intensity does not meet CDC criteria or fashion styling intern. Faint diagnostic bands were observed suggestive of either recent B. burgdorferi infection treated very early OR remote past B. burgdorferi infection. Send out to a reference laboratory may be needed should there be a suspicion of Lyme disease acquisition in [place]. Clinical and epidemiological correlation required. Performed By: [facility] [place] [address] Picking Crew Supervisor: Robin Delgado III, M.D. CLIA#: [id number] Phone#: Performed By: #### MARYCARMEN CLARK, LYPCR ####[address] [address] MGon 07-07-2019 Magnesium [Mass/Vol] 2.3 mg/dL Normal 1.6-2.4 [facility] ([place]) Comment on above: Performed By: #### B UN, CRE, GFR #### [address] [address] .Auto Diffon 07-06-2019 Ammonia (P) [Mass/Vol] 0.50 10 3/mcL Normal 0.09-1.40 [facility] ([place]) Comment on above: Performed By: #### B UN, CRE, GFR #### [place] [id number] Basophils (Bld) [#/Vol] 0.00 10 3/mcL Normal 0.00-0.27 [facility] ([place]) Comment on above: Performed By: #### B UN, CRE, GFR #### [place] [id number] Basophils/100 WBC (Bld) 0.6 % Normal 0.0-2.5 A [facility] ([place]) Comment on above: Performed By: #### B UN, CRE, GFR #### [place] [address] Eosinophils (Bld) [#/Vol] 0.10 10 3/mcL Normal 0.00-0.65 [facility] ([place]) Comment on above: Performed By: #### B UN, CRE, GFR #### [address] [address] Eosinophils/100 WBC (Bld) 2.1 % Normal 0.0-6.0 [facility] ([place]) Comment on above: Performed By: #### B UN, CRE, GFR #### [address] [address] Lymphocytes (Bld) [#/Vol] 0.90 10 3/mcL Normal 0.90-4.32 [facility] ([place]) Comment on above: Performed By: #### B UN, CRE, GFR #### [address] [address] Lymphocytes/100 WBC (Bld) 22.6 % Normal 20.0-40.0 [facility] ([place]) Comment on above: Performed By: #### B UN, CRE, GFR #### [address] [address] Monocytes/100 WBC (Bld) 11.6 % Normal 2.0-13.0 A [facility] ([place] Comment on above: Performed By: #### B UN, CRE, GFR #### [address] [address] Neutrophils/100 WBC (Bld) 63.1 % Normal 50.0-75.0 [facility] ([place] Comment on above: Performed By: #### B UN, CRE, GFR #### [address] [address] .GFRon 07-06-2019 GFR Non- >60 Normal [facility] ([place] Comment on above: Result Comment: GFR Population [...] By: #### B UN, CRE, GFR #### [address] [address] GFR >60 Normal [facility] ([place] Comment on above: Result Comment: GFR Population [...] By: #### B UN, CRE, GFR #### [place] [address] .NEUABSon 07-06-2019 Neutrophils (Bld) [#/Vol] 2.60 10 3/mcL Normal 2.25-8.10 [facility] ([place] Comment on above: Performed By: #### B UN, CRE, GFR #### [place] [address] A1Con 07-06-2019 HbA1c (Bld) [Mass fraction] 5.9 % Normal 4.0-6.0 [facility] ([place] Comment on above: Performed By: #### B UN, CRE, GFR #### [place] [address] APTTon 07-06-2019 aPTT Coag (Bld) [Time] 53.7 s High 25.0-35.0 [facility] ([place] Comment on above: Result Comment: For Heparin anticoagulation therapy, the recommended therapeutic range is: 54-77 seconds (APTT Correlation with Anti-Xa therapeutic range of 0.3-0.7 units/ml). PLEASE REFERENCE THE PHARMACY PROTOCOL FOR DOSING. Performed By: #### B UN, CRE, GFR #### [place] [address] aPTT Coag (Bld) [Time] Heparin IV Normal [facility] ([place] Comment on above: Performed By: #### B UN, CRE, GFR #### [place] [address] aPTT Coag (Bld) [Time] 61.5 s High 25.0-35.0 [facility] ([place] Comment on above: Result Comment: For Heparin anticoagulation therapy, the recommended therapeutic range is: 54-77 seconds (APTT Correlation with Anti-Xa therapeutic range of 0.3-0.7 units/ml). PLEASE REFERENCE THE PHARMACY PROTOCOL FOR DOSING. Performed By: #### B UN, CRE, GFR #### [place] [address] aPTT Coag (Bld) [Time] Heparin IV Normal [facility] ([place] Comment on above: Performed By: #### B UN, CRE, GFR #### [address] [address] aPTT Coag (Bld) [Time] Heparin IV Normal [facility] ([place] Comment on above: Performed By: #### B UN, CRE, GFR #### [address] [address] aPTT Coag (Bld) [Time] 62.6 s High 25.0-35.0 [facility] ([place] Comment on above: Result Comment: For Heparin anticoagulation therapy, the recommended therapeutic range is: 54-77 seconds (APTT Correlation with Anti-Xa therapeutic range of 0.3-0.7 units/ml). PLEASE REFERENCE THE PHARMACY PROTOCOL FOR DOSING. Performed By: #### B UN, CRE, GFR #### [address] [address] BMPon 07-06-2019 Calcium [Mass/Vol] 8.8 mg/dL Normal 8.4-10.1 [facility] [place] Comment on above: Performed By: #### B UN, CRE, GFR #### [address] [address] Chloride [Moles/Vol] 106 mmol/L Normal 98-110 [facility] ([place] Comment on above: Performed By: #### B UN, CRE, GFR #### [address] [address] CO2 [Moles/Vol] 25 mmol/L Normal 22-32 [facility] ([place] Comment on above: Performed By: #### B UN, CRE, GFR #### [address] [address] Creatinine [Mass/Vol] 1.00 mg/dL Normal 0.60-1.40 [facility] ([place] Comment on above: Performed By: #### B UN, CRE, GFR #### [address] [address] Electrolyte Balance 7.0 mEq/L Normal 4.0-15.0 [facility] ([place] Comment on above: Performed By: #### B UN, CRE, GFR #### [address] [address] Glucose [Mass/Vol] 105 mg/dL Normal 82-115 [facility] [place] Comment on above: Performed By: #### B UN, CRE, GFR #### [address] [address] Potassium [Moles/Vol] 4.1 mmol/L Normal 3.5-5.0 [facility] ([place] Comment on above: Performed By: #### B UN, CRE, GFR #### [address] [address] Sodium [Moles/Vol] 138 mmol/L Normal 136-145 [facility] [place] Comment on above: Performed By: #### B UN, CRE, GFR #### [address] [address] Urea nitrogen [Mass/Vol] 21.0 mg/dL Normal 8.0-22.0 [facility] ([place] Comment on above: Performed By: #### B UN, CRE, GFR #### [address] [address] Urea nitrogen/Creatinine [Mass ratio] 21.0 ratio Normal 10.0-22.0 [facility] ([place] Comment on above: Performed By: #### B UN, CRE, GFR #### [address] [address] CBCon 07-06-2019 Erythrocyte distribution width (RBC) [Ratio] 14.2 % Normal 11.5-15.5 [facility] ([place] Comment on above: Performed By: #### B UN, CRE, GFR #### [address] [address] Hematocrit (Bld) [Volume fraction] 41.6 % Normal 40.0-52.0 [facility] ([place] Comment on above: Performed By: #### B UN, CRE, GFR #### [address] [address] Hemoglobin (Bld) [Mass/Vol] 14.4 G/dL Normal 13.0-17.5 [facility] ([place] Comment on above: Performed By: #### B UN, CRE, GFR #### [address] [address] MCH (RBC) [Entitic mass] 33.5 pg High 27.0-33.0 [facility] ([place] Comment on above: Performed By: #### B UN, CRE, GFR #### [address] [address] MCHC (RBC) [Mass/Vol] 34.7 G/dL Normal 32.0-36.0 [facility] ([place]) Comment on above: Performed By: #### B UN, CRE, GFR #### [address] [address] MCV (RBC) [Entitic vol] 96.7 fL Normal 81.0-100.0 A [facility] ([place] Comment on above: Performed By: #### B UN, CRE, GFR #### [address] [address] Platelet mean volume (Bld) [Entitic vol] 7.8 fL Normal 6.4-10.5 [facility] ([place] Comment on above: Performed By: #### B UN, CRE, GFR #### [address] [address] Platelets (Bld) [#/Vol] 167 10 3/mcL Normal 150-450 [facility] ([place] Comment on above: Performed By: #### B UN, CRE, GFR #### [address] [address] RBC (Bld) [#/Vol] 4.31 10 6/mcL Low 4.50-6.00 [facility] ([place] Comment on above: Performed By: #### B UN, CRE, GFR #### [address] [address] WBC (Bld) [#/Vol] 4.20 10 3/mcL Low 4.50-10.80 [facility] ([place] Comment on above: Performed By: #### B UN, CRE, GFR #### [place] [address] LIPIDon 07-06-2019 Cholesterol in HDL [Mass/Vol] 67 mg/dL High 40-59 [facility] ([place] Comment on above: Result Comment: HDL Reference Interval: Less than 40 Low - high risk 60 or above Optimal/lowers risk Performed By: #### B UN, CRE, GFR #### [place] [address] Cholesterol in LDL [Mass/Vol] 112 mg/dL Normal 0-129 [facility] ([place] Comment on above: Result Comment: LDL is a calculated result and requires a 12-hr fast. LDL Reference Interval: Less than 100 Optimal 100-129 Near or above optimal 130-159 Borderline high risk 160-189 High risk 190 and above Very high risk Performed By: #### B UN, CRE, GFR #### [place] [address] Cholesterol [Mass/Vol] 192 mg/dL Normal 50-199 [facility] ([place] Comment on above: Result Comment: Chol esterol Reference Interval: Less than 200 Desirable 200-239 Borderline high risk 240 and above High risk Performed By: #### B UN, CRE, GFR #### [place] [address] Triglyceride [Mass/Vol] 63 mg/dL Normal 3-149 [facility] ([place] Comment on above: Result Comment: Trig lyceride Reference Interval: Less than 150 Normal 150-199 Borderline high risk 200-499 High risk 500 or higher Very high risk Performed By: #### B UN, CRE, GFR #### [place] [address] .Auto Diffon 07-05-2019 Ammonia (P) [Mass/Vol] 0.50 10 3/mcL Normal 0.09-1.40 [facility] ([place] Comment on above: Performed By: #### C BC, ADIFF, ANEU, BMP, GFR, FIB, APTT, PRO #### [place] [id number] Basophils (Bld) [#/Vol] 0.00 10 3/mcL Normal 0.00-0.27 [facility] ([place] Comment on above: Performed By: #### C BC, ADIFF, ANEU, BMP, GFR, FIB, APTT, PRO #### [address] [address] Basophils/100 WBC (Bld) 1.1 % Normal 0.0-2.5 A [facility] ([place]) Comment on above: Performed By: #### C BC, ADIFF, ANEU, BMP, GFR, FIB, APTT, PRO #### [address] [address] Eosinophils (Bld) [#/Vol] 0.00 10 3/mcL Normal 0.00-0.65 [facility] ([place] Comment on above: Performed By: #### C BC, ADIFF, ANEU, BMP, GFR, FIB, APTT, PRO #### [address] [address] Eosinophils/100 WBC (Bld) 0.6 % Normal 0.0-6.0 [facility] ([place] Comment on above: Performed By: #### C BC, ADIFF, ANEU, BMP, GFR, FIB, APTT, PRO #### [address] [address] Lymphocytes (Bld) [#/Vol] 0.60 10 3/mcL Low 0.90-4.32 [facility] ([place] Comment on above: Performed By: #### C BC, ADIFF, ANEU, BMP, GFR, FIB, APTT, PRO #### [address] [address] Lymphocytes/100 WBC (Bld) 17.8 % Low 20.0-40.0 [facility] ([place] Comment on above: Performed By: #### C BC, ADIFF, ANEU, BMP, GFR, FIB, APTT, PRO #### [address] [address] Monocytes/100 WBC (Bld) 14.0 % High 2.0-13.0 A [facility] ([place] Comment on above: Performed By: #### C BC, ADIFF, ANEU, BMP, GFR, FIB, APTT, PRO #### [address] [address] Neutrophils/100 WBC (Bld) 66.5 % Normal 50.0-75.0 [facility] ([place] Comment on above: Performed By: #### C BC, ADIFF, ANEU, BMP, GFR, FIB, APTT, PRO #### [address] [address] .GFRon 07-05-2019 GFR >60 Normal [facility] ([place] Comment on above: Result Comment: GFR Population [...] ANEU, BMP, GFR, FIB, APTT, PRO #### [address] [address] GFR Non- >60 Normal [facility] ([place] Comment on above: Result Comment: GFR Population [...] ANEU, BMP, GFR, FIB, APTT, PRO #### [place] [address] .NEUABSon 07-05-2019 Neutrophils (Bld) [#/Vol] 2.40 10 3/mcL Normal 2.25-8.10 [facility] ([place] Comment on above: Performed By: #### C BC, ADIFF, ANEU, BMP, GFR, FIB, APTT, PRO #### [place] [address] APTTon 07-05-2019 aPTT Coag (Bld) [Time] 69.1 s High 25.0-35.0 [facility] ([place] Comment on above: Result Comment: For Heparin anticoagulation therapy, the recommended therapeutic range is: 54-77 seconds (APTT Correlation with Anti-Xa therapeutic range of 0.3-0.7 units/ml). PLEASE REFERENCE THE PHARMACY PROTOCOL FOR DOSING. Performed By: #### B UN, CRE, GFR #### [place] [address] aPTT Coag (Bld) [Time] Heparin IV Normal [facility] ([place] Comment on above: Performed By: #### B UN, CRE, GFR #### [place] [address] aPTT Coag (Bld) [Time] Unknown Normal [facility] ([place] Comment on above: Performed By: #### B UN, CRE, GFR #### [place] [address] aPTT Coag (Bld) [Time] 29.1 s Normal 25.0-35.0 [facility] ([place] Comment on above: Result Comment: For Heparin anticoagulation therapy, the recommended therapeutic range is: 54-77 seconds (APTT Correlation with Anti-Xa therapeutic range of 0.3-0.7 units/ml). PLEASE REFERENCE THE PHARMACY PROTOCOL FOR DOSING. Performed By: #### B UN, CRE, GFR #### [place] [address] BMPon 07-05-2019 Creatinine [Mass/Vol] 1.05 mg/dL Normal 0.60-1.40 [facility] ([place] Comment on above: Performed By: #### C BC, ADIFF, ANEU, BMP, GFR, FIB, APTT, PRO #### [address] [address] Urea nitrogen/Creatinine [Mass ratio] 21.0 ratio Normal 10.0-22.0 [facility] ([place] Comment on above: Performed By: #### C BC, ADIFF, ANEU, BMP, GFR, FIB, APTT, PRO #### [address] [address] Calcium [Mass/Vol] 9.1 mg/dL Normal 8.4-10.1 [facility] [place] Comment on above: Performed By: #### C BC, ADIFF, ANEU, BMP, GFR, FIB, APTT, PRO #### [place] [id number] Chloride [Moles/Vol] 106 mmol/L Normal 98-110 [facility] ([place]) Comment on above: Performed By: #### C BC, ADIFF, ANEU, BMP, GFR, FIB, APTT, PRO #### [place] [id number] CO2 [Moles/Vol] 29 mmol/L Normal 22-32 [facility] ([place]) Comment on above: Performed By: #### C BC, ADIFF, ANEU, BMP, GFR, FIB, APTT, PRO #### [place] [id number] Electrolyte Balance 4.0 mEq/L Normal 4.0-15.0 [facility] ([place] Comment on above: Performed By: #### C BC, ADIFF, ANEU, BMP, GFR, FIB, APTT, PRO #### [place] [id number] Glucose [Mass/Vol] 110 mg/dL Normal 82-115 [facility] [place] Comment on above: Performed By: #### C BC, ADIFF, ANEU, BMP, GFR, FIB, APTT, PRO #### [address] [address] Potassium [Moles/Vol] 4.8 mmol/L Normal 3.5-5.0 [facility] ([place]) Comment on above: Performed By: #### C BC, ADIFF, ANEU, BMP, GFR, FIB, APTT, PRO #### [place] [address] Sodium [Moles/Vol] 139 mmol/L Normal 136-145 [facility] ([place] Comment on above: Performed By: #### C BC, ADIFF, ANEU, BMP, GFR, FIB, APTT, PRO #### [place] [address] Urea nitrogen [Mass/Vol] 22.0 mg/dL Normal 8.0-22.0 [facility] ([place] Comment on above: Performed By: #### C BC, ADIFF, ANEU, BMP, GFR, FIB, APTT, PRO #### [place] [id number] CBCon 07-05-2019 Erythrocyte distribution width (RBC) [Ratio] 14.2 % Normal 11.5-15.5 [facility] ([place] Comment on above: Performed By: #### C BC, ADIFF, ANEU, BMP, GFR, FIB, APTT, PRO #### [place] [address] Hematocrit (Bld) [Volume fraction] 44.2 % Normal 40.0-52.0 [facility] ([place] Comment on above: Performed By: #### C BC, ADIFF, ANEU, BMP, GFR, FIB, APTT, PRO #### [place] [address] Hemoglobin (Bld) [Mass/Vol] 14.9 G/dL Normal 13.0-17.5 [facility] ([place] Comment on above: Performed By: #### C BC, ADIFF, ANEU, BMP, GFR, FIB, APTT, PRO #### [place] [id number] MCH (RBC) [Entitic mass] 32.9 pg Normal 27.0-33.0 [facility] ([place]) Comment on above: Performed By: #### C BC, ADIFF, ANEU, BMP, GFR, FIB, APTT, PRO #### [address] [address] MCHC (RBC) [Mass/Vol] 33.6 G/dL Normal 32.0-36.0 [facility] ([place]) Comment on above: Performed By: #### C BC, ADIFF, ANEU, BMP, GFR, FIB, APTT, PRO #### [place] [id number] MCV (RBC) [Entitic vol] 97.8 fL Normal 81.0-100.0 [facility] ([place]) Comment on above: Performed By: #### C BC, ADIFF, ANEU, BMP, GFR, FIB, APTT, PRO #### [place] [id number] Platelet mean volume (Bld) [Entitic vol] 7.7 fL Normal 6.4-10.5 [facility] ([place] Comment on above: Performed By: #### C BC, ADIFF, ANEU, BMP, GFR, FIB, APTT, PRO #### [address] [address] Platelets (Bld) [#/Vol] 178 10 3/mcL Normal 150-450 [facility] ([place]) Comment on above: Performed By: #### C BC, ADIFF, ANEU, BMP, GFR, FIB, APTT, PRO #### [place] [id number] RBC (Bld) [#/Vol] 4.52 10 6/mcL Normal 4.50-6.00 [facility] ([place]) Comment on above: Performed By: #### C BC, ADIFF, ANEU, BMP, GFR, FIB, APTT, PRO #### [place] [id number] WBC (Bld) [#/Vol] 3.50 10 3/mcL Low 4.50-10.80 [facility] ([place]) Comment on above: Performed By: #### C BC, ADIFF, ANEU, BMP, GFR, FIB, APTT, PRO #### [address] [address] FIBon 07-05-2019 Fibrinogen 452 mg/dL Normal 250-550 [facility] ([place]) Comment on above: Performed By: #### C BC, ADIFF, ANEU, BMP, GFR, FIB, APTT, PRO #### [address] [address] PROon 07-05-2019 INR Coag (PPP) [Relative time] 0.9 {INR} Normal [facility] ([place]) Comment on above: Result Comment: The [employer] (CHEST, 1992, 102:312S-25S) recommended therapeutic range for oral anticoagulant therapy is: LOW RISK: Prophylaxis of venous thrombosis INR: 2.0-3.0 Treatment of pulmonary embolism 2.0-3.0 Prevention of systemic embolism 2.0-3.0 HIGH RISK: Mechanical prosthetic valves 2.5-3.5 Performed By: #### B UN, CRE, GFR #### [place] [address] PT Coag (PPP) [Time] 10.8 s Normal 9.0-14.6 [facility] ([place]) Comment on above: Result Comment: Effe ctive 11/24/07, Protime results may be affected by some antibiotics (i.e. Ciprofloxacin, Azithromycin, Bactrim) which may potentiate the action of oral anticoagulants, with further increases in Protime/INR. Performed By: #### B UN, CRE, GFR #### [place] [address] XR ESOPHOGRAM W/BARIUM TABLE Ton 07-05-2019 XR ESOPHOGRAM W/BARIUM TABLET ORIGINAL XR ESOPHOGRAM W/BARIUM TABLET CLINICAL STATEMENT: dysphagia, needs WINSTON. COMPARISON: None FINDINGS: 3.2 minutes fluoroscopy time. 146.416 milligray dose. 46 digital images were obtained. The procedure was performed by Olivia Nicole, Physician Work Station Support Specialist. There is some spillage of barium into [...] PM Sign Date: 07/05/2019 3:00:01 PM Ordering Provider:[facility] ([place]) CT ANGIOGRAPHY NECK W/CONTRA STon 05-31-2019 CT [...] 05/31/2019 9:53:22 AM Ordering Provider:Jose Alfredo Luna [facility] ([place]) .GFRon 05-28-2019 GFR >60 Normal [facility] ([place]) Comment on above: Result Comment: GFR Population [...] By: #### B UN, CRE, GFR #### [address] [address] GFR Non- >60 Normal [facility] ([place]) Comment on above: Result Comment: GFR Population [...] By: #### B UN, CRE, GFR #### [address] [address] BUNon 05-28-2019 Urea nitrogen [Mass/Vol] 21.0 mg/dL Normal 8.0-22.0 [facility] ([place]) Comment on above: Performed By: #### B UN, CRE, GFR #### [place] [id number] [place] [address] CREon 05-28-2019 Creatinine [Mass/Vol] 0.88 mg/dL Normal 0.60-1.40 [facility] ([place]) Comment on above: Performed By: #### B UN, CRE, GFR #### [facility] [address] [place] [address] E-SIGN EMERGENCY RM RPTon E-SIGN EMERGENCY RM RPT [address] [address] EMERGENCY ROOM REPORT Patient Name: NEGRITA Tony Patient Number: [id number] Patient Type: ER MR Number: [id number] : 1945 Admit Date: 10/13/18 Admitting Physician: [...] for: SULEIMAN REA MD EMERGENCY ROOM REPORT [address] [address] EMERGENCY ROOM REPORT Patient Name: NEGRITA Tony Patient Number: [id number] Patient Type: ER MR Number: [id number] : 1945 Admit Date: 10/13/18 Admitting Physician: JOSE ALFREDO BEARDEN MD Second Physician: Unsigned documents are preliminary and do not represent medical or legal documents. EMERGENCY ROOM REPORT Normal [facility] E-SIGN EMERGENCY [facility] E-SIGN EMERGENCY [address] [address] EMERGENCY ROOM REPORT Patient Name: NEGRITA Tony Patient Number: [id number] Patient Type: ER MR Number: [id number] : 1945 Admit Date: 11/08/17 Admitting Physician: [...] HISTORY: The patient likes to go to [employer] and [employer], etc. He likes to walk outside. He does not smoke cigarettes. No others around him are known to be ill. PAST MEDICAL HISTORY: Herniorrhaphy. The patient has not seen a physician for a while. He has not had a colonoscopy recently. The patient did get a PSA via the [facility]. MEDICATIONS: No chronic medications. ALLERGIES: No [...] on next page please... EMERGENCY ROOM REPORT [address] [address] EMERGENCY ROOM REPORT Patient Name: NEGRITA Tony Patient Number: [id number] Patient Type: ER MR Number: [id number] : 1945 Admit Date: 11/08/17 Admitting Physician: [...] PRISCILA SINHA MD EMERGENCY ROOM REPORT Normal [facility] CBCon 11-08-2017 Basophils #/vol (Bld) 0.0 X103 Normal 0.0 - 0.1 [facility] Comment on above: Performed By: #### 2 [id number] #### [facility] [address] [place] [address] Other Comment: COMPL ETE BLOOD COUNT Basophils/100 WBC (Bld) 0.2 % Normal 0.0 - 2.0 [facility] Comment on above: Performed By: #### 2 [id number] #### [facility] [address] [place] [address] Other Comment: COMPL ETE BLOOD COUNT Eosinophils #/vol (Bld) 0.0 X103 Normal 0.0 - 0.2 [facility] Comment on above: Performed By: #### 2 [id number] #### [facility] [address] [place] [address] Other Comment: COMPL ETE BLOOD COUNT Eosinophils/100 WBC (Bld) 0.0 % Normal 0.0 - 8.0 [facility] Comment on above: Performed By: #### 2 [id number] #### [facility] [address] [place] [address] Other Comment: COMPL ETE BLOOD COUNT Erythrocyte distribution width Ratio (RBC) 13.8 % Normal 11.5 - 15.5 [facility] Comment on above: Performed By: #### 2 750505 #### [facility] [address] [place] [address] Other Comment: COMPL ETE BLOOD COUNT Hematocrit Volume Fraction (Bld) 42.9 % Normal 42.0 - 52.0 [facility] Comment on above: Performed By: #### 2 [id number] #### [facility] [address] [place] [address] Other Comment: COMPL ETE BLOOD COUNT Hemoglobin mass conc (Bld) 14.7 g/dL Normal 14.0 - 18.0 [facility] Comment on above: Performed By: #### 2 [id number] #### [facility] [address] [place] [address] Other Comment: COMPL ETE BLOOD COUNT Lymphocytes #/vol (Bld) 0.5 X103 Low 1.3 - 2.9 [facility] Comment on above: Performed By: #### 2 [id number] #### [facility] [address] [place] [address] Other Comment: COMPL ETE BLOOD COUNT Lymphocytes/100 WBC (Bld) 9.4 % Low 20.0 - 46.0 [facility] Comment on above: Performed By: #### 2 [id number] #### [facility] [address] [place] [address] Other Comment: COMPL ETE BLOOD COUNT MANUAL DIFF NOT INDICATED Normal [facility] Comment on above: Performed By: #### 2 785796 #### [facility] [address] [place] [address] Other Comment: COMPL ETE BLOOD COUNT MCH Entitic mass (RBC) 33.1 pg High 27.0 - 31.0 [facility] Comment on above: Performed By: #### 2 [id number] #### [facility] [address] [place] [address] Other Comment: COMPL ETE BLOOD COUNT MCHC mass conc (RBC) 34.4 g/dL Normal 32.0 - 36.0 [facility] Comment on above: Performed By: #### 2 [id number] #### [facility] [address] [place] [address] Other Comment: COMPL ETE BLOOD COUNT MCV Entitic volume (RBC) 96.5 fL High 80.0 - 94.0 [facility] Comment on above: Performed By: #### 2 [id number] #### [facility] [address] [place] [address] Other Comment: COMPL ETE BLOOD COUNT Monocytes #/vol (Bld) 0.4 X103 Normal 0.3 - 0.8 [facility] Comment on above: Performed By: #### 2 707102 #### [facility] [address] [place] [address] Other Comment: COMPL ETE BLOOD COUNT Monocytes/100 WBC (Bld) 8.9 % Normal 0.0 - 12.0 [facility] Comment on above: Performed By: #### 2 607651 #### [facility] [address] [place] [address] Other Comment: COMPL ETE BLOOD COUNT Neutrophils #/vol (Bld) 3.9 X103 Normal 1.6 - 4.8 [facility] Comment on above: Performed By: #### 2 [id number] #### [facility] [address] [place] [address] Other Comment: COMPL ETE BLOOD COUNT Platelet mean volume Entitic volume (Bld) 8.3 fL Normal 7.4 - 10.4 [facility] Comment on above: Performed By: #### 2 [id number] #### [facility] [address] [place] [address] Other Comment: COMPL ETE BLOOD COUNT PLTS 129 X103 Low 130 - 400 [facility] Comment on above: Performed By: #### 2 [id number] #### [facility] [address] [place] [address] Other Comment: COMPL ETE BLOOD COUNT RBC #/vol (Bld) 4.45 X106 Low 4.70 - 6.10 [facility] Comment on above: Performed By: #### 2 061369 #### [facility] [address] [place] [address] Other Comment: COMPL ETE BLOOD COUNT RBC morphology finding Nom (Bld) NOT INDICATED Normal [facility] Comment on above: Performed By: #### 2 363852 #### [facility] [address] [place] [address] Other Comment: COMPL ETE BLOOD COUNT Segmented neutrophils/100 WBC (Bld) 81.5 % High 42.0 - 66.0 [facility] Comment on above: Performed By: #### 2 [id number] #### [facility] [address] [place] [address] Other Comment: COMPL ETE BLOOD COUNT WBC #/vol (Bld) 4.8 X103 Normal 4.8 - 10.8 [facility] Comment on above: Performed By: #### 2 256572 #### [facility] [address] [place] [address] Other Comment: COMPL ETE BLOOD COUNT CHEST PA AND LATERALon 11-08 [facility] [address] [address] _ RADIOLOGY REPORT Name: NEGRITA Tony Admit Phys: PRSICILA Age: 71 Sex: M Order Phys: FRANCOIS NE : 1945 Stay Type: ER X-ray #: Admit: 11/08/17 Room: 102 MR #: [id number] CHEST PA & LATERAL [id number] COMPLETE:11/08/17 12:[address] [place] [id number] (REASON FOR CHEST: FEVER Unsigned transcriptions represent [...] 09:16 Copy for: File copy printer # [phone] [address] _ RADIOLOGY REPORT Name: NEGRITA Tony Admit Phys: FRANCOIS Age: 71 Sex: M Order Phys: FRANCOIS NE : 1945 Stay Type: ER X-ray #: Admit: 11/08/17 Room: 102 MR #: [id number] CHEST PA & LATERAL [id number] COMPLETE:11/08/17 12:39 [place] [id number] (REASON FOR CHEST: FEVER Unsigned transcriptions represent a preliminary report and do not reflect corrections, additions, and/or subtractions to the information contained in this report. Copy for: PRISCILA SINHA MD via printer DISCHARGED Normal [facility] COMPREHENSIVE METABOLIC PANE Mayank 11-08-2017 Age Reported 71 YRS Normal [facility] Comment on above: Performed By: #### 2 [id number] #### [facility] [address] [place] [address] Albumin mass conc 3.8 g/dL Normal 3.5 - 5.0 [facility] Comment on above: Performed By: #### 2 [id number] #### [facility] [address] [place] [address] Albumin/Globulin mass ratio 1.2 {ratio} Normal 1.1 - 2.2 [facility] Comment on above: Result Comment: \BLDo\eGFR INTERPRETATION\BLDx\ The estimated GFR is calculated by the original MDRD equation. NORMAL RANGE: >60 mL/min/1.73 sq meters *GFR only applies to adults over the age of 18. Performed By: #### 2 [id number] #### [facility] [address] [place] [address] ALKALINE PHOS 66 IU/L Normal 32 - 92 [facility] Comment on above: Performed By: #### 2 [id number] #### [facility] [address] [place] [address] ALT enzyme act/vol 60 U/L High 10 - 40 [facility] Comment on above: Performed By: #### 2 [id number] #### [facility] [address] [place] [address] AST enzyme act/vol 71 U/L High 10 - 42 [facility] Comment on above: Performed By: #### 2 403441 #### [facility] [address] [place] [address] Bilirubin.direct mass conc 0.7 mg/dL Normal 0.2 - 1.0 [facility] Comment on above: Performed By: #### 2 559091 #### [facility] [address] [place] [facility] [address] Calcium mass conc 8.7 mg/dL Normal 8.4 - 10.2 [facility] Comment on above: Performed By: #### 2 060893 #### [facility] [address] [place] [facility] [address] Chloride molar conc 94 mmol/L Low 101 - 111 [facility] Comment on above: Performed By: #### 2 [id number] #### [facility] [address] [place] [facility] [address] CO2 molar conc 24 mmol/L Normal 21 - 31 [facility] Comment on above: Performed By: #### 2 575328 #### [facility] [address] [place] [facility] [address] Creatinine mass conc 1.1 mg/dL Normal 0.6 - 1.3 [facility] Comment on above: Performed By: #### 2 282062 #### [facility] [address] [place] [facility] [address] eGFR AfrAm 84 mL/min Normal [facility] Comment on above: Performed By: #### 2 682390 #### [facility] [address] [place] [facility] [address] eGFR NonAfrAm 70 mL/min Normal [facility] Comment on above: Performed By: #### 2 [id number] #### [facility] [address] [place] [facility] [address] Glucose mass conc 108 mg/dL High 65 - 99 [facility] Comment on above: Performed By: #### 2 [id number] #### [facility] [address] [place] [facility] [address] Potassium molar conc 3.9 mmol/L Normal 3.6 - 5.0 [facility] Comment on above: Performed By: #### 2 [id number] #### [facility] [address] [place] [facility] [address] Protein mass conc 7.1 g/dL Normal 6.4 - 8.3 [facility] Comment on above: Performed By: #### 2 [id number] #### [facility] [address] [place] [facility] [address] Sodium molar conc 128 mmol/L Low 135 - 145 [facility] Comment on above: Performed By: #### 2 996943 #### [facility] [address] [place] [address] Urea nitrogen mass conc 18 mg/dL Normal 7 - 18 [facility] Comment on above: Performed By: #### 2 [id number] #### [facility] [address] [place] [address] INFLUENZA A/B RAPID IDon INFLUENZA A Negative Normal NORMAL: NEGATIVE [facility] Comment on above: Performed By: #### 2 [id number] #### [facility] [address] [place] [address] INFLUENZA B Negative Normal NORMAL: NEGATIVE [facility] Comment on above: Result Comment: [...] PCR is warranted. Performed By: #### 2 [id number] #### [facility] [address] [place] [address] SPECIMEN: NASAL SWAB Normal [facility] Comment on above: Performed By: #### 2 609437 #### [facility] [address] [place] [address] URINALYSISon 11-08-2017 Appearance Nom (U) CLEAR Normal NORM: CLEAR [facility] Comment on above: Performed By: #### 2 [id number] #### [facility] [address] [place] [address] Other Comment: URINA LYSIS Bacteria LM.HPF #/area (Urine sed) MODERATE Normal [facility] Comment on above: Performed By: #### 2 436893 #### [facility] [address] [place] [address] Other Comment: URINA LYSIS Bilirubin mass conc 1+ Normal NORM: NEGATIVE [facility] Comment on above: Performed By: #### 2 909803 #### [facility] [address] [place] [address] Other Comment: URINA LYSIS BLOOD 1+ Normal NORM: NEGATIVE [facility] Comment on above: Performed By: #### 2 648229 #### [facility] [address] [place] [address] Other Comment: URINA LYSIS Cast Type HYALINE Normal [facility] Comment on above: Performed By: #### 2 190400 #### [facility] [address] [place] [address] Other Comment: URINA LYSIS Casts LM.LPF #/area (Urine sed) 1-2 Normal [facility] Comment on above: Performed By: #### 2 [id number] #### [facility] [address] [place] [address] Other Comment: URINA LYSIS Color Nom (U) JACKIE Normal [facility] Comment on above: Performed By: #### 2 [id number] #### [facility] [address] [place] [address] Other Comment: URINA LYSIS Epi Cells OCCASIONAL Normal [facility] Comment on above: Performed By: #### 2 688068 #### [facility] [address] [place] [address] Other Comment: URINA LYSIS GLUC Negative Normal NORM: NEGATIVE [facility] Comment on above: Performed By: #### 2 [id number] #### [facility] [address] [place] [address] Other Comment: URINA LYSIS Ketones Ql (U) 1+ Normal NORM: NEGATIVE [facility] Comment on above: Performed By: #### 2 [id number] #### [facility] [address] [place] [address] Other Comment: URINA LYSIS Mucus Ql (Urine sed) MODERATE Normal [facility] Comment on above: Performed By: #### 2 [id number] #### [facility] [address] [place] [address] Other Comment: URINA LYSIS Nitrite Ql (U) Negative Normal NORM: NEGATIVE [facility] Comment on above: Performed By: #### 2 [id number] #### [facility] [address] [place] [address] Other Comment: URINA LYSIS pH (Bld) 6.0 Normal [facility] Comment on above: Performed By: #### 2 [id number] #### [facility] [address] [place] [address] Other Comment: URINA LYSIS Protein mass conc (U) 2+ Normal NORM: NEGATIVE [facility] Comment on above: Performed By: #### 2 [id number] #### [facility] [address] [place] [address] Other Comment: URINA LYSIS SPECIFIC GR 1.025 Normal NORM: 1.005-1.030 [facility] Comment on above: Performed By: #### 2 687085 #### [facility] [address] [place] [address] Other Comment: URINA LYSIS Urobilinogen Qn (U) 0.2 Normal NORM: 0. 2-1 MG/DL [facility] Comment on above: Performed By: #### 2 455285 #### [facility] [address] [place] [address] Other Comment: URINA LYSIS WBC #/vol (Bld) Negative Normal NORM: NEGATIVE [facility] Comment on above: Performed By: #### 2 207019 #### [facility] [address] [place] [address] Other Comment: URINA LYSIS Wbcs 0-2 Normal [facility] Comment on above: Performed By: #### 2 474351 #### [facility] [address] [place] [address] Other Comment: URINA LYSIS WITH MICRO SEE BELOW Normal [facility] Comment on above: Performed By: #### 2 235838 #### [facility] [address] [place] [address] Other Comment: URINA LYSIS SURGICAL PATHOLOGY, CONVERTE Thor 08-25-[address] [facility] COVID-19 virus antigen assay SARS-CoV-2 (COVID-19) Ag IA.rapid Ql (Resp) [facility] Work Phone: Stool gastrointestinal hemog lobin detection by immunologic method Lower GI hemoglobin IA Ql (Stl) [facility] Work Phone: Vital Signs Date Time Vital Sign Value Performing Clinician Luly dumont 12-27-2024 01:00-0400 Diastolic blood pressure 71 mm[Hg] Dr. Eligio Contreras MD Work Phone: [facility] 12-27-2024 01:00-0400 Heart rate 53 /min Dr. Eligio Contreras MD Work Phone: [facility] 12-27-2024 01:00-0400 Respiratory rate 14 /min Dr. Eligio Contreras MD Work Phone: [facility] 12-27-2024 01:00-0400 SaO2% (BldA) [Mass fraction] 98 % Dr. Eligio Contreras MD Work Phone: [facility] 12-27-2024 01:00-0400 Systolic blood pressure 134 mm[Hg] Dr. Eligio Contreras MD Work Phone: [facility] 12-26-2024 23:54-0400 Body temperature 97.9 [degF] Dr. Eligio Contreras MD Work Phone: [facility] 12-26-2024 19:36-0400 Body height 177.[address] Eligio Contreras MD Work Phone: [facility] 12-26-2024 19:36-0400 Body mass index (BMI) [Ratio] 30.8 kg/m2 Dr. Eligio Contreras MD Work Phone: [facility] 12-26-2024 19:36-0400 Body weight 97.[address] Eligio Contreras MD Work Phone: [facility] 09-02-2024 13:57-0400 Body temperature 98.4 [degF] Dr. Eligio Contreras MD Work Phone: [facility] 09-02-2024 13:57-0400 Diastolic blood pressure 65 mm[Hg] Dr. Eligio Contreras MD Work Phone: [facility] 09-02-2024 13:57-0400 Heart rate 83 /min Dr. Eligio Contreras MD Work Phone: [facility] 09-02-2024 13:57-0400 Respiratory rate 18 /min Dr. Eligio Contreras MD Work Phone: [facility] 09-02-2024 13:57-0400 SaO2% (BldA) [Mass fraction] 95 % Dr. Eligio Contreras MD Work Phone: [facility] 09-02-2024 13:57-0400 Systolic blood pressure 121 mm[Hg] Dr. Eligio Contreras MD Work Phone: [facility] 09-02-2024 08:30-0400 Inhaled oxygen flow rate 2 L/min Dr. Eligio Contreras MD Work Phone: [facility] 09-02-2024 06:00-0400 Body mass index (BMI) [Ratio] 29.2 kg/m2 Dr. Eligio Contreras MD Work Phone: [facility] 09-02-2024 06:00-0400 Body weight 92.[address] Eligio Contreras MD Work Phone: [facility] 08-31-2024 23:41-0400 Body height [address] Eligio Contreras MD Work Phone: [facility] 05-04-2022 10:19-0500 Diastolic blood pressure 67 mm[Hg] Dr. Lucien Gramajo Work Phone: [facility] Work Phone: 05-04-2022 10:19-0500 Heart rate 86 /min Dr. Lucien Gramajo Work Phone: [facility] Work Phone: 05-04-2022 10:19-0500 Systolic blood pressure 128 mm[Hg] Dr. Lucien Gramajo Work Phone: [facility] Work Phone: 05-04-2022 07:20-0500 Body temperature 97.1 [degF] Dr. Lucien Gramajo Work Phone: [facility] Work Phone: 05-04-2022 07:20-0500 Respiratory rate 15 /min Dr. Lucien Gramajo Work Phone: [facility] Work Phone: 05-04-2022 07:20-0500 SaO2% (BldA) [Mass fraction] 97 % Dr. Lucien Gramajo Work Phone: [facility] Work Phone: 05-03-2022 06:00-0500 Body weight 77.[address] Lucien Gramajo Work Phone: [facility] Work Phone: 05-02-2022 13:17-0500 Body height [address] Lucien Gramajo Work Phone: [facility] Work Phone: 04-12-2022 11:46-0500 Body mass index (BMI) [Ratio] 24.3 kg/m2 Dr. Lucien Gramajo Work Phone: [facility] Work Phone: 03-26-2022 10:15-0500 Body height 179.1 cm Belkis Hui PA-C Work Phone: [facility] 03-26-2022 10:15-0500 Body weight 84.37 kg Belkis Hui PA-C Work Phone: [facility] 03-26-2022 10:15-0500 Diastolic blood pressure 64 mm[Hg] Belkis Hui PA-C Work Phone: [facility] 03-26-2022 10:15-0500 Heart rate 96 /min Belkis Hui PA-C Work Phone: [facility] 03-26-2022 10:15-0500 Systolic blood pressure 99 mm[Hg] Belkis Hui PA-C Work Phone: [facility] 03-14-2022 11:44-0400 Body temperature 97.3 [degF] Dr. Lucien Gramajo Work Phone: [facility] Work Phone: 03-14-2022 11:44-0400 Diastolic blood pressure 65 mm[Hg] Dr. Lucien Gramajo Work Phone: [facility] Work Phone: 03-14-2022 11:44-0400 Heart rate 88 /min Dr. Lucien Gramajo Work Phone: [facility] Work Phone: 03-14-2022 11:44-0400 Respiratory rate 18 /min Dr. Lucien Gramajo Work Phone: [facility] Work Phone: 03-14-2022 11:44-0400 SaO2% (BldA) [Mass fraction] 97 % Dr. Lucien Gramajo Work Phone: [facility] Work Phone: 03-14-2022 11:44-0400 Systolic blood pressure 112 mm[Hg] Dr. Lucien Gramajo Work Phone: [facility] Work Phone: 03-14-2022 06:00-0400 Body weight 78.[address] Lucien Gramajo Work Phone: [facility] Work Phone: 03-13-2022 23:45-0400 Body mass index (BMI) [Ratio] 26.5 kg/m2 Dr. Lucien Gramajo Work Phone: [facility] Work Phone: 12-25-2021 11:09-0400 Body height 177.8 cm Carson Bullock III, DO Work Phone: [facility] 12-25-2021 11:09-0400 Body weight 83.92 kg Carson Bullock III DO Work Phone: [facility] 12-25-2021 11:09-0400 Diastolic blood pressure 93 mm[Hg] Carson Idoine III, DO Work Phone: [facility] 12-25-2021 11:09-0400 Heart rate 87 /min Carson Bullock III, DO Work Phone: [facility] 12-25-2021 11:09-0400 Systolic blood pressure 175 mm[Hg] Carson Bullock III, DO Work Phone: [facility] 12-17-2021 13:18-0400 Body height 177.8 cm An Lee MD Work Phone: [facility] 12-17-2021 13:18-0400 Body weight 83.94 kg An Lee MD Work Phone: [facility] 12-17-2021 13:18-0400 Diastolic blood pressure 98 mm[Hg] An Lee MD Work Phone: [facility] 12-17-2021 13:18-0400 Heart rate 89 /min An Lee MD Work Phone: [facility] 12-17-2021 13:18-0400 Systolic blood pressure 160 mm[Hg] An Lee MD Work Phone: [facility] Encounters Encounter Date Encounter Type Care Provider Facility Start: 12-26-2024 End: 12-27-2024 Emergency department patient visit Dr. Eligio Contreras MD Work Phone: -Emergency Department Work Phone: Start: 09-02-2024 Non-patient / Non-visit Dr. Merary [facility] Work Phone: Start: 09-01-2024 Non-patient / Non-visit Dr. Merary [facility] Work Phone: Start: 08-31-2024 ambulatory Eligio Contreras Facility :[facility] Start: 08-31-2024 End: 09-02-2024 Evaluation and management of inpatient Dr. Merary Wong DO -Medical Surgical 3 Work Phone: Start: 05-22-2022 Telephone encounter Aiden villela MD Work Phone: [facility] Comment on above: Modified Talha Scor e Start: 05-16-2022 Telephone encounter Carson Barksdale as Ara DO Work Phone: [facility] Comment on above: No Show Start: 05-03-2022 Non-patient / Non-visit Dr. Ousmane Gramajo Work Phone: [facility] Start: 05-02-2022 Non-patient / Non-visit Dr. Ousmane Gramajo Work Phone: [facility] Start: 05-01-2022 Non-patient / Non-visit Dr. Ousmane Gramajo Work Phone: [facility] Start: 04-30-2022 Non-patient / Non-visit Dr. Ousmane Gramajo Work Phone: [facility] Start: 04-23-2022 Non-patient / Non-visit Dr. Ousmane Gramajo Work Phone: [facility] Start: 04-22-2022 Non-patient / Non-visit Dr. Ousmane Gramajo Work Phone: [facility] Start: 04-20-2022 Non-patient / Non-visit Dr. Ousmane Gramajo Work Phone: [facility] Start: 04-18-2022 Non-patient / Non-visit Dr. Ousmane Gramajo Work Phone: [facility] Start: 04-15-2022 Non-patient / Non-visit Dr. Ousmane Gramajo Work Phone: [facility] Start: 04-12-2022 End: 05-04-2022 Evaluation and management of inpatient Dr. Lucien Gramajo Work Phone: [facility] Start: 04-01-[address] Lucien carrillo Work Phone: [facility] Start: 03-27-2022 End: 03-27-[address] [facility] Start: 03-26-2022 End: 03-26-2022 ambulatory PALAK KIDD Facility:[facility] Start: 03-26-2022 End: 03-26-2022 Patient encounter procedure Belkis Nam PA-C Work Phone: [facility] Comment on above: Orthopedic aftercare (Primary Dx); Status post reverse arthroplasty of left shoulder; Primary osteoarthritis of left shoulder Start: 03-18-[address] Lucien carrillo Work Phone: [facility] Start: 03-15-2022 End: 03-15-[address] Lucien Gramajo [facility] Start: 03-13-2022 Non-patient / Non-visit Dr. Ousmane Gramajo Work Phone: [facility] Start: 03-12-2022 Non-patient / Non-visit Dr. Ousmane Gramajo Work Phone: [facility] Start: 03-10-2022 Non-patient / Non-visit Dr. Ousmane Gramajo Work Phone: [facility] Start: 03-07-2022 Non-patient / Non-visit Dr. Ousmane Gramajo Work Phone: [facility] Start: 03-06-2022 Non-patient / Non-visit Dr. Ousmane Gramajo Work Phone: [facility] Start: 03-04-2022 Non-patient / Non-visit Dr. Ousmane Gramajo Work Phone: [facility] Start: 02-28-2022 Non-patient / Non-visit Dr. Ousmane Gramajo Work Phone: [facility] Start: 02-28-2022 Non-patient / Non-visit Dr. Ousmane Gramajo Work Phone: [facility] Start: 02-26-2022 Non-patient / Non-visit Dr. Ousmane Gramajo Work Phone: [facility] Start: 02-26-2022 Non-patient / Non-visit Dr. Ousmane Gramajo Work Phone: [facility] Start: 02-25-2022 Non-patient / Non-visit Dr. Ousmane Gramajo Work Phone: [facility] Start: 02-22-2022 Non-patient / Non-visit Dr. Ousmane Gramajo Work Phone: [facility] Start: 02-21-2022 Non-patient / Non-visit Dr. Ousmane Gramajo Work Phone: [facility] Start: 02-20-2022 Telephone encounter Carson Bullock DO Work Phone: [facility] Comment on above: Orders Start: 02-19-2022 End: 03-14-2022 Evaluation and management of inpatient Dr. Lucien Gramajo Work Phone: [facility] Start: 02-09-2022 ambulatory CARSON BULLOCK III Facil ity:[facility] Start: 02-09-2022 End: 02-09-2022 Subsequent hospital visit by physician Provider [facility] Start: 02-07-2022 End: 02-19-2022 Evaluation and management of inpatient DHIMANT VIDAL Facility:[facility] Start: 02-06-2022 End: 02-07-2022 ambulatory Aquiles Guillaume MD Work Phone: Neurosurgery Comment on above: Acute ischemic left ICA stroke (HCC) (Primary Dx) Start: 02-06-2022 Telemedicine consult ation with patient Aquiles Guillaume MD Work Phone: [facility] Start: 02-03-2022 ambulatory CARSON BULLOCK III Facil ity:[facility] Start: 02-03-2022 End: 02-03-2022 Subsequent hospital visit by physician Provider [facility] Start: 01-31-2022 Telephone encounter Carson Barksdale as Idoine DO Work Phone: [facility] Comment on above: Physician Review Yi ointment Start: 01-31-2022 End: 01-31-2022 ambulatory CARSON RODRIGUEZ IDOINE III Facility:[facility] Start: 01-30-2022 End: 01-30-2022 ambulatory [facility] Start: 01-28-2022 Telephone encounter Carson Barksdale as Idoine DO Work Phone: [facility] Comment on above: Preparations For Jeremiah luna Start: 01-24-2022 Telephone encounter Carson Bensonl as Idoine DO Work Phone: [facility] Comment on above: EKG Result Start: 01-24-2022 End: 02-08-2022 ambulatory CARSON Nara IDOINE III Facility:[facility] Start: 01-24-2022 End: 01-24-2022 Subsequent hospital visit by physician Provider [facility] Start: 01-15-2022 Telephone encounter Carson Bensonl as Idoine DO Work Phone: [facility] Comment on above: AMBX SX AUTH 02/07/20 Start: 01-11-2022 Patient encounter status Carson Rodriguez Idoine DO Work Phone: [facility] Start: 01-11-2022 Telephone encounter Carson Bensonl as Idoine DO Work Phone: [facility] Comment on above: Schedule Surgery Start: 01-10-2022 ambulatory CARSON Bains IDOINE III Facil ity:[facility] Start: 01-10-2022 End: 01-10-2022 Subsequent hospital visit by physician Provider [facility] Start: 12-26-2021 Telephone encounter Carson Marcelinol as Idoine DO Work Phone: [facility] Comment on above: Scans Start: 12-25-2021 End: 12-25-2021 ambulatory AN LEE Facility:[facility] Start: 12-25-2021 End: 12-25-2021 Patient encounter procedure Carson Bullock Work Phone: [facility] Comment on above: Primary osteoarthrit is of left shoulder (Primary Dx); Injury of tendon of long head of left biceps, initial encounter; Chronic left shoulder pain Start: 12-17-2021 End: 12-18-2021 ambulatory AN LEE Facility:[facility] Start: 12-17-2021 End: 12-17-2021 Patient encounter procedure An Lee MD Work Phone: [facility] Comment on above: Chronic pain of both shoulders (Primary Dx); Primary osteoarthritis of shoulders, bilateral Start: 12-04-2021 End: 12-04-2021 ambulatory [facility] Start: 11-19-2021 ambulatory [facility] Start: 09-27-2021 End: 09-27-2021 ambulatory [facility] Start: 09-13-2021 End: 09-13-2021 ambulatory [facility] Start: 09-12-2021 End: 09-12-2021 Subsequent [facility] Start: [facility] Start: 08-29-2021 End: 08-29-2021 ambulatory [facility] Start: 08-20-2021 End: 08-20-2021 ambulatory [facility] Start: 06-05-2021 End: 06-06-2021 ambulatory JENELLE KIDD [employer] Start: 03-01-2021 End: 03-02-2021 ambulatory JENELLE KIDD [facility] [employer] Start: 11-02-2020 End: 11-03-2020 ambulatory JENELLE KIDD [employer] Start: 02-09-2020 End: 02-09-2020 Subsequent hospital [facility] Start: 08-26-2009 Documentation procedure Elie Lei MD Work Phone: [facility] Start: 08-26-2009 Historic EMR Elie villela MD Work Phone: [facility] Procedures Date Procedure Procedure Detail Performing Clinician Start: 12-26-2024 Urnls dip stick/tablet reagent auto microscopy Dr. Eligio Contreras MD Work Phone: Start: 12-26-2024 Plain chest X-ray Dr. Eligio Contreras MD Work Phone: Start: 12-26-2024 CT angiography of head and neck Dr. Casimiro Contreras MD Work Phone: Start: 12-26-[address] Theo Contreras MD Work Phone: Start: 09-02-2024 Serum inorganic phosphate measurement Dr. Eligio Contreras MD Work Phone: Start: 09-01-[address] Theo Contreras MD Work Phone: Start: 08-31-2024 X-ray of chest, PA and [...] Author Start: 02-06-2025 DIABETES SCREEN DIABETES SCREEN [facility] Start: 01-24-2025 DIABETES SCREEN DIABETES SCREEN [facility] Start: 12-26-2024 [facility] Start: 09-02-2024 Patient discharge [facility] Start: 09-01-2024 Care planning and pr oblem solving actions [facility] Start: 09-01-2024 Physiotherapy of chest [facility] Start: 09-01-2024 Referral to occupati onal therapist [facility] Start: 09-01-2024 Speech therapy assessment [facility] Start: 08-31-2024 End: 09-01-2024 [facility] Start: 08-31-2024 Following clinical p athway protocol [facility] Start: 08-31-2024 Assessment of risk o f venous thromboembolism [facility] Start: 08-31-2024 Contact precautions [facility] Start: 08-31-2024 Incentive spirometry [facility] Start: 08-31-2024 Insertion of cathete r into peripheral vein [facility] Start: 08-31-2024 Measuring intake and output [facility] Start: 08-31-2024 Oxygen therapy [facility] Start: 08-31-2024 Providing care accor ding to standard [facility] Start: 08-31-2024 Referral to service [facility] Start: 08-31-2024 End: 08-31-2024 Respiratory secretion precautions [facility] Start: 08-31-2024 Admission procedure [facility] Start: 03-26-2023 BP CONTROLLED (<130/80) BP CONTROLLE D (<130/80) [facility] Start: 02-07-2023 Hepatitis B surface antibody level LDL CHOLESTEROL [facility] Start: 01-10-2023 Influenza vaccination Influenza Vacc ine (#1) [facility] Start: 08-07-2022 Hemoglobin A1c/Hemoglobin.total in Blood HBA1C [facility] Start: 05-12-2022 ADVANCE DIRECTIVE DISCUSSION ADVANCE DIRECTIVE DISCUSSION [facility] Start: 05-12-2022 DEPRESSION ASSESSMENT DEPRESSION ASS ESSMENT [facility] Start: 05-04-2022 [facility] Start: 04-18-2022 Introduction of urin neel catheter [facility] Work Phone: Start: 04-15-2022 Measuring intake and output [facility] Work Phone: Start: 04-12-2022 Referral to service [facility] Work Phone: Start: 04-12-2022 Urinary bladder training [facility] Work Phone: Start: 04-12-2022 Admission procedure [facility] Work Phone: Start: 04-12-2022 Referral to occupati onal therapist [facility] Work Phone: Start: 04-12-2022 Vital signs measurements [facility] Work Phone: Start: 04-12-2022 [facility] Work Phone: Start: 04-12-2022 [facility] Work Phone: Start: 04-12-2022 Incentive spirometry [facility] Work Phone: Start: 04-12-2022 Patient referral to dietitian [facility] Work Phone: Start: 04-12-2022 Speech therapy assessment [facility] Work Phone: Start: 03-14-2022 Patient discharge [facility] Work Phone: Start: 03-13-2022 Introduction of urin neel catheter [facility] Work Phone: Start: 03-10-2022 [facility] Work Phone: Start: 03-07-2022 [facility] Work Phone: Start: 02-26-2022 Following clinical p athway protocol [facility] Work Phone: Start: 02-26-2022 Catheterization of vein [facility] Work Phone: Start: 02-21-2022 [facility] Work Phone: Start: 02-21-2022 Referral to gastroenterology service [facility] Work Phone: Start: 02-19-2022 Urinary bladder training [facility] Work Phone: Start: 02-19-2022 Referral to service [facility] Work Phone: Start: 02-19-2022 Admission procedure [facility] Work Phone: Start: 02-19-2022 Patient referral to dietitian [facility] Work Phone: Start: 02-19-2022 Referral to occupati onal therapist [facility] Work Phone: Start: 02-19-2022 Vital signs measurements [facility] Work Phone: Start: 02-19-2022 End: 02-19-2022 [facility] Work Phone: Start: 02-19-2022 Incentive spirometry [facility] Work Phone: Start: 02-19-2022 Speech therapy assessment [facility] Work Phone: Start: 02-03-2022 End: 01-11-2023 SARS-CoV-2 (COVID-19) RNA [Presence] in Respiratory specimen by NICO with probe detection PRE-PROCEDURE & PRE-OPERATIVE COVID Microbiology Routine Primary osteoarthritis of left shoulder Injury of tendon of long head of left biceps, initial encounter Preoperative testing Expected: 02/03/2022, Expires: 01/11/2023 [facility] Work Phone: Comment on above: Expected: 02/03/2022 , Expires: 01/11/2023 Start: 01-15-2022 End: 03-17-2022 Basic metabolic 2000 panel - Serum or Plasma BASIC METABOLIC PNL Lab Routine Primary osteoarthritis of left shoulder Injury of tendon of long head of left biceps, initial encounter Preoperative testing Expected: 01/15/2022, Expires: 03/17/2022 [facility] Work Phone: Comment on above: Expected: 01/15/2022 , Expires: 03/17/2022 Start: 01-15-2022 End: 03-17-2022 CBC W Auto Differential panel - Blood CBC + DIFF Lab Routine Primary osteoarthritis of left shoulder Injury of tendon of long head of left biceps, initial encounter Preoperative testing Expected: 01/15/2022, Expires: 03/17/2022 [facility] Work Phone: Comment on above: Expected: 01/15/2022 , Expires: 03/17/2022 Start: 01-12-2022 End: 03-14-2022 Hemoglobin A1c in Blood HGB A1C Lab Routine Primary osteoarthritis of left shoulder Injury of tendon of long head of left biceps, initial encounter Preoperative testing Diabetes mellitus due to underlying condition with hyperglycemia, with long-term current use of insulin (HCC) Expected: 01/12/2022, Expires: 03/14/2022 [facility] Work Phone: Comment on above: Expected: 01/12/2022 , Expires: 03/14/2022 Start: 01-12-2022 End: 03-14-2022 TYPE + SCREEN TYPE + SCREEN Blood Bank Routine Primary osteoarthritis of left shoulder Injury of tendon of long head of left biceps, initial encounter Preoperative testing Expected: 01/12/2022, Expires: 03/14/2022 [facility] Work Phone: Comment on above: Expected: 01/12/2022 , Expires: 03/14/2022 Start: 01-10-2022 Influenza vaccination INFLUENZA (#1) [facility] Start: 08-18-2021 COVID-19 VACCINE (4 - Booster for Moderna series) COVID-19 VACCINE (4 - Booster for Moderna series) [facility] Start: 06-14-2021 COVID-19 VACCINE (4 - Booster for Moderna series) COVID-19 VACCINE (4 - Booster for Moderna series) [facility] Start: 06-14-2021 Covid-19 Vaccine (4 - Moderna series) Covid-19 Vaccine (4 - Moderna series) [facility] Start: 05-12-2021 ADVANCE DIRECTIVE DISCUSSION ADVANCE DIRECTIVE DISCUSSION [facility] Start: 05-12-2021 DEPRESSION ASSESSMENT DEPRESSION ASS ESSMENT [facility] Start: 12-08-2008 PNEUMOCOCCAL: 65+ (1 - PCV) PNEUMOCOCCAL: 65+ (1 - PCV) [facility] Start: 2003 Hepatitis B Vaccine (1 of 3 - Risk 3-dose series) Hepatitis B Vaccine (1 of 3 - Risk 3-dose series) [facility] Start: 12-08-1993 SHINGRIX VACCINE (1 of 2) QUESADA GRIX VACCINE (1 of 2) [facility] Start: 12-08-1988 DIABETES SCREEN DIABETES SCREEN [facility] Start: 12-08-1962 Urine microalbumin profile [facility] Start: 12-08-1961 ANNUAL PCP TEAM AUTOMATIC GLOVE FORMER ALEX DISEASE VISIT ANNUAL PCP TEAM CHRONIC DISEASE VISIT [facility] Start: 12-08-1961 BP CONTROLLED (<130/80) BP CONTROLLE D (<130/80) [facility] Start: 12-08-1961 HEPATITIS C SCREENING HEPATITIS C SC REENING [facility] Start: 1955 Adult depression scr eening assessment DEPRESSION SCREENING [facility] Start: 12-08-1953 3 comp foot exam completed DIABETIC FOOT EXAM [facility] Start: 12-08-1953 Hepatitis B screening URINE ALBUMIN:CREATININE RATIO [facility] Start: 12-08-1953 Hepatitis C antibody , confirmatory test DILATED RETINAL EXAM [facility] Start: 12-08-1949 Pneumococcal Vaccine : 65+ (1 - PCV) Pneumococcal Vaccine: 65+ (1 - PCV) [facility] Start: 12-08-1949 PNEUMOCOCCAL: 65+ (1 - PCV) PNEUMOCOCCAL: 65+ (1 - PCV) [facility] Start: 06-10-1944 COVID-19 VACCINE (#1) COVID-19 VACCI NE (#1) [facility] Bilirubin measuremen t, urine [facility] End: 01-24-2023 Ct upper extremity w/o contrast material CT SHOULDER WO IVC LT Radiology Routine Primary osteoarthritis of left shoulder Chronic left shoulder pain 1 Occurrences starting 12/25/2021 until 01/24/2023 [facility] Work Phone: Comment on above: 1 Occurrences starti ng 12/25/2021 until 01/24/2023 End: 01-11-2023 ECG COMPLETE ECG COMPLETE ECG Routine Primary osteoarthritis of left shoulder Injury of tendon of long head of left biceps, initial encounter Preoperative testing 1 Occurrences starting 01/12/2022 until 01/11/2023 [facility] Work Phone: Comment on above: 1 Occurrences starti ng 01/12/2022 until 01/11/2023 Hemoglobin [Presence ] in Urine [facility] Measurement of keton es in urine using dipstick [facility] Microscopic urinalysis [facility] Patient Education ED AFIB ED Confusion [facility] [facility] Work Phone: Patient referral [facility] Work Phone: pH of Urine [facility] End: 02-10-2023 Radiologic exam chest 2 views XR CHEST 2V FRONTAL/LAT Radiology Routine Primary osteoarthritis of left shoulder Injury of tendon of long head of left biceps, initial encounter Preoperative testing 1 Occurrences starting 01/12/2022 until 02/10/2023 [facility] Work Phone: Comment on above: 1 Occurrences starti ng 01/12/2022 until 02/10/2023 Specific gravity of Urine [facility] Procedures Routine Primary osteoarthritis of left shoulder Injury of tendon of long head of left biceps, initial encounter Ordered: 01/12/2022 [facility] Work Phone: Comment on above: Ordered: 01/12/2022 Urine blood test [facility] Urine dipstick for glucose [facility] Urine dipstick for leukocyte esterase [facility] Urine dipstick for nitrite [facility] Urine dipstick for protein [facility] Urine examination [facility] Urine microscopy: epithelial cells [facility] Urine Microscopy: wh ite cells [facility] Urobilinogen [Presen ce] in Urine [facility] XR SHOULDER GENERAL 3V OR MORE AP/TRUE AP/OTHER LEFT XR SHOULDER GENERAL 3V OR MORE AP/TRUE AP/OTHER LEFT Radiology Routine Chronic pain of both shoulders Ordered: 12/17/2021 [facility] Work Phone: Comment on above: Ordered: 12/17/2021 XR SHOULDER GENERAL 3V OR MORE AP/TRUE AP/OTHER RIGHT XR SHOULDER GENERAL 3V OR MORE AP/TRUE AP/OTHER RIGHT Radiology Routine Chronic pain of both shoulders Ordered: 12/17/2021 [facility] Work Phone: Comment on above: Ordered: 12/17/2021 End: 04-25-2023 XR SHOULDER LIMITED 2V AP/TRUE AP LEFT XR SHOULDER LIMITED 2V AP/TRUE AP LEFT Radiology Routine Primary osteoarthritis of left shoulder 1 Occurrences starting 03/26/2022 until 04/25/2023 [facility] Work Phone: Comment on above: 1 Occurrences starti ng 03/26/2022 until 04/25/2023 [facility] [place] [facility] Immunizations Immunization Date Immunization Notes Care Provider Fa [facility] 04-30-2022 Covid Moderna Bivale nt Booster Dr. Lucien Gramajo Work Phone: [facility] 04-16-2022 influenza, injectabl e, quadrivalent, preservative free Dr. Eligio Contreras MD Work Phone: [facility] 04-16-2022 influenza, seasonal, injectable Dr. Lucien Gramajo Work Phone: [facility] Work Phone: 04-19-2021 Covid (Moderna) Dr. Lucien Gramajo Work Phone: [facility] 08-10-2020 Covid (Moderna) Dr. Lucien Gramajo Work Phone: [facility] 07-13-2020 Covid (Moderna) Dr. Lucien rGamajo Work Phone: [facility] Payers Date Payer Category Payer Self-pay 2024 Unknown [id number] 2021 Unknown [id number] 2021 Unknown [id number] 2008 Medicare [id number] 2008 Medicare MEDICARE MEDICAR E A AND B [id number] 2008-Present [phone] [place] [address] Medicare [id number] 1945 Unknown [id number] 6 1945 Unknown [id number] 6 1945 Unknown [id number] 6 Unknown [id number] Unknown [id number] Unknown [id number] Unknown [id number] Unknown [id number] Unknown [id number] Unknown [id number] Unknown [id number] Unknown [id number] Unknown [id number] Unknown [id number] Social History Date Type Detail Facility Tobacco smoking stat [facility] Unknown if ever smoked [facility] Start: 1945 Sex Assigned At Not on file [facility] Start: 04-12-2022 Tobacco smoking status OHIS Tobacco smoking consumption unknown [facility] Start: 12-17-2021 Tobacco smoking status NHIS Ex-smoker [facility] History of tobacco use Current smoker [facility] History of tobacco use Cigarette Smoker [facility] History of tobacco use Cigar Smoker [facility] Start: 12-17-2021 Tobacco use and exposure Smokeless tobacco non-user [facility] Start: 12-17-2021 End: 03-26-2022 Alcohol intake Current drinker of alcohol (finding) [facility] Start: 12-17-2021 History SDOH Alcohol Comment not very often [facility] Start: 12-07-2021 End: 03-26-2022 Exposure to SARS-CoV-2 (event) Not sure [facility] Start: 02-07-2022 History SDOH Financial [address] [facility] Start: 02-07-2022 History SDOH Food Worry [address] [facility] Start: 02-07-2022 History SDOH Transport Med 2 [facility] Start: 1945 Sex Assigned At Male [facility] Start: 04-20-2020 End: 03-26-2022 History of Social function [facility] Work Phone: Start: 04-20-2020 End: 03-26-2022 Tobacco use panel [facility] Work Phone: How hard is it for y ou to pay for the very basics like food, housing, medical care, and heating Not very hard [facility] Work Phone: (I/We) worried whemarlon er (my/our) food would run out before (I/we) got money to buy more. Never true [facility] Work Phone: In the past 12 month s, has lack of transportation kept you from medical appointments or from getting medications? No [facility] Work Phone: In the past 12 month s, was there a time when you were not able to pay the mortgage or rent on time? No [facility] Work Phone: Start: 08-31-2024 End: 12-26-2024 Tobacco smoking status NHIS Current some day smoker [facility] Start: 09-02-2024 Sex Male (finding) [facility] Medical Equipment Procedure Code Equipment Code Equipment Origin al Text Equipment Identifier Dates Stent Xact 8-6mm Taper Nickel Titanium 30mm Vascular Self Expandable - [id number] Start: 02-07-2022 Goals Date Patient Goal Desired Activity /State Functional Status Date Assessment Result Facility 09-02-2024 Functional status Chair [facility] Work Phone: 05-04-2022 Functional status Activity Abili ty With Assist of 2 [facility] Work Phone: 04-25-2022 Functional status Ambulates [facility] Work Phone: 03-14-2022 Functional status Bedrest [facility] Work Phone: Mental Status Date Assessment Result Facility 12-26-2024 Cognitive function Voice/Name [facility] Work Phone: 09-02-2024 Cognitive function Patient Orien tation Person;Place;Time [facility] Work Phone: 09-02-2024 Cognitive function Appropriate;Cooperativ e [facility] Work Phone: 05-04-2022 Cognitive function Voice/Name [facility] Work Phone: 03-14-2022 Cognitive function Voice/Name [facility] Work Phone: Clinical Notes 12-17-2021 to 12-27-2024 Note Date & Type Note Facility 12-27-2024 Discharge summary [facility] 12-26-2024 Radiology Diagnostic study note [facility] Imaging Services [address], [place] [address] Chest 1 View (Portable) MR#: [id number] Acct: [id number] Name: MIRI CAI Rep #: [id number] : 1945 M 79 From: Micah Molina MD PCP: Dr. Eligio Contreras MD Status: REG ER Study:Chest 1 View (Portable) Date of Exam: 12/26/24 Exam# [id number] Ordering Dr: Caio Wolff DO PROCEDURE: CHEST 1 VIEW (PORTABLE) 12/26/2024 REASON FOR EXAM: ALTERED MENTAL STATUS TECHNIQUE: Frontal view of the chest. COMPARISON: Chest x-ray 08/31/2024 FINDINGS: Hardware: Partially imaged left shoulder arthroplasty. Heart: Cardiac and mediastinal contours are stable. Lungs: No significant change in the appearance of the lungs. Bibasilar atelectasis. Bones: The bones are unremarkable. RAD/Chest 1 View (Portable) IMPRESSION: Bibasilar atelectasis. [facility] CC: Dr. Eligio Contreras MD; Dr. Caio Wolff DO ~ Chief Maintenance Supervisor: Signed [facility] 12-26-2024 Radiology Diagnostic study note [facility] Imaging Services [address] [place] [address] [id number] CTA Head AND Neck W/ Contrast MR#: [id number] Acct: [id number] Name: MIRI CAI Rep #: [id number] : 1945 M 79 From: Leonides Arnold MD PCP: Dr. Eligio Contreras MD Status: REG ER Study:CTA Head AND Neck W/ Contrast Date of E xam: 12/26/24 Exam# [id number] Ordering Dr: Caio Wolff DO PROCEDURE: CTA HEAD AND NECK W/ CONTRAST 12/26/2024 REASON FOR EXAM: ALTERED MENTAL STATUS TECHNIQUE: CTA HEAD AND NECK W/ CONTRAST Multiplanar Sagittal and Coronal images were obtained. 3D and MIP post processing was performed. CONTRAST: Isovue 370 VOLUME: 99 mL One or more dose reduction techniques were used (e.g., Automated exposure control, adjustment of the mA and/or kV according to patient size, use of iterative reconstruction technique). RADIATION DOSE SUMMARY: DLP: 1714.17 mGycm COMPARISON: None available. FINDINGS: CTA HEAD: Patent intracranial arterial vasculature. No large vessel occlusion, flow-limiting stenosis, saccular aneurysm, or vascular malformation identified. Patent anterior and bilateral posterior communicating arteries. Right [employer] is predominantly origin with diminutive/hypoplastic connection to the basilar, anatomic variant. CTA NECK: Conventional aortic arch branching. Bilateral cervical carotid and vertebral arteries are patent without significant stenosis. No aneurysm or dissection. Vascular stent in place within the distal left common carotid artery-proximal ICA, with small amount of eccentric noncalcified atheromatous plaque/mural thrombus without significantluminal narrowing. Dominant left vertebral artery with diffuse relatively hypoplastic caliber of the nondominant right vertebral artery. NONCONTRAST CT HEAD: No acute intracranial hemorrhage, extra-axial collection, mass effect or evidence of acute infarct. Moderate generalized brain parenchymal volume loss with associated ex vacuo ventricular enlargement, and chronic small-vessel ischemic changes throughout the supratentorial white matter. Chronic slit-like encephalomalacia along the left subinsular region, and old cortical infarct involving the left middle frontal gyrus. Absent chinik ocular lenses. Intact skull base and calvarium. Well-aerated paranasal sinuses and bilateral mastoid air cells. Mild multilevel cervical spondylotic changes. Heterogeneous multinodular thyroid gland. Visualized lung apices are clear. CT/CTA Head AND Neck W/ Contrast IMPRESSION: No acute intracranial abnormality. Moderate volume loss and chronic small-vessel ischemic changes with chronic cortical infarct involving left middle frontal gyrus, and left subinsular slit-like encephalomalacia. Patent major intracranial and cervical arterial vasculature without any significant flow-limiting stenosis. Patent vascular stent in the distal left CCA-proximal ICA with thin eccentric noncalcified plaque. Reading Location: [facility] CC: Dr. Eligio Contreras MD; Dr. Caio Wolff DO ~ Chief Maintenance Supervisor: Signed [facility] 12-26-2024 Discharge summary Note Date/Time December 27, 2024 12:40am [facility] Medical Records Department [address] [place] [address] Emergency Department Summary 12/26/24 MR#: [id number] Acct: [id number] Name: MIRI CAI Rep #:[id number] : 1945 79 From: Caio Garibay PCP: Dr. Eligio Contreras MD Status:REG ER Location: ED HPI History of Present Illness Chief Complaint: Alt LOC Informant: patient and family Narrative Narrative: Presents to ED from [facility] living niece is present who helps with decision-making. He is DNR CC. Apparently visiting an hour ago he was slumped over not responding and drooling. He had a major stroke 2021 post shoulder surgery being off Eliquis as he has history of A-fib. Residual right sided weakness. Wheelchair with two-person assist to get around at the facility. Patient now improved per niece. She states she had carotid stent placed after stroke that failed need to be transferred back 2021. Has not been evaluated andshe is concerned of this area. Patient denies cough recent vomiting diarrhea denies urinary symptoms. He is on Eliquis currently for chronic A-fib. [facility] Medical History History of atrial fibrillation Obesity (BMI 30-39.9) History of CVA with residual deficit Anticoagulated Right hemiplegia Esophageal stenosis History of left common carotid [...] DAILY ret ention 02/19/22 02/19/22 08:30 History doxazosin 1 mg tablet 1 mg PO QHS urine 04/12/22 U nknown History menthol 0.44 %-zinc oxide 20.6 % 1 applic topical BID@ 0600,2200 04/12/22 Unknown History topical ointment (Calmoseptine) cream pantoprazole 40 mg tablet,delayed 40 mg PO DAILY heart burn 04/12/22 Unknown History release sennosides 8.6 mg-docusate sodium 1 tab PO QHS constip ation 04/12/22 Unknown Hi story 50 mg tablet (Stool Softener-Stimulant Laxative) acetaminophen 500 mg tablet 1,000 mg (2 x 500 mg) PO Q 8 #0 tabs 05/02/22 Unknown Rx loperamide 2 mg capsule 2 mg PO Q6H PRN loose stool 08/31/24 Unknown History (Anti-Diarrheal (loperamide)) nystatin 100,000 unit/gram topical 1 applic topical Q8 H 08/31/24 Unknown History powder sertraline 25 mg tablet 25 mg PO DAILY 08/31/24 Unkn own History tizanidine 4 mg tablet 4 mg PO QHS 08/31/24 Unknown History acetaminophen 325 mg tablet 650 mg PO Q4H PRN fever or pain 12/26/24 Unknown History (Aminofen) bisacodyl 10 mg rectal suppository 10 mg NC PRN PRN Co nstipation 12/26/24 Unknown History cholecalciferol (vitamin D3) 50 2,000 unit PO DAILY Unknown History mcg (2,000 unit) tablet (D3 DOTS) magnesium hydroxide 400 mg/5 mL 30 ml PO PRN PRN Const ipation 12/26/24 Unknown History oral suspension magnesium hydroxide 400 mg/5 mL 30 ml PO DAILY PRN con stipation 12/26/24 Unknown History oral suspension (Dulcolax (magnesium hydroxide)) multivitamin (Daily Multi-Vitamin 1 tab PO DAILY 12/26 Unknown History tablet) vitamin B complex (Balanced B-50 1 tab PO DAILY Unknown History tablet) Allergy/AdvReac Type Severity Reaction Status Date / Time No Known Allergies Allergy Verified 12/26/24 19:36 Surgical History Status post dilation of esophageal narrowing History of left shoulder replacement History of cataract surgery History of left shoulder replacement Social History household members: none Smoking Status: Current some day smoker tobacco type: pipe and cigars alcohol intake: current alcohol intake frequency: holidays/special occasions only substance use type: does not use ROS ROS ED Constitutional Constitutional ED: Denies chills, fever(s) or sweats ENT ENT ED: Denies sore throat Cardiovascular Cardiovascular: Denies chest pain, leg edema, palpitations or racing heartbeat Respiratory/Chest Respiratory/Chest: Denies cough, dyspnea or dyspnea on exertion Gastrointestinal Gastrointestinal: Denies abdominal pain, diarrhea, nausea or vomiting Genitourinary Genitourinary ED: Denies dysuria, hematuria or urinary frequency Musculoskeletal Musculoskeletal: Denies back pain, extremity pain or neck pain Integumentary Denies rash or wounds Neurologic Neurologic: Denies headache(s), paresthesias or weakness EXAM Physical Exam Const Vital Signs: 12/26/24 19:36 12/26/24 20:36 12/26/24 21:00 Temperature 97.7 F L Temperature Source Oral Pulse Rate 49 L 48 L 51 L Respiratory Rate 16 17 17 Blood Pressure 90/53 L 110/54 L 105/70 Blood Pressure Mean 65 72 81 Pulse Ox 98 96 97 Oxygen Delivery Method Room Air 12/26/24 22:00 12/26/24 23:00 12/26/24 23:54 Temperature 97.9 F Temperature Source Pulse Rate 57 L 63 62 Respiratory Rate 15 16 16 Blood Pressure 110/65 125/68 H 128/72 H Blood Pressure Mean 80 87 90 Pulse Ox 99 99 100 Oxygen Delivery Method Room Air Room Air Positive well nourished and well developed Constitutional Narrative: Nontoxic. General Appearance ED: well developed and NAD HEENT Reports moist mucous membranes normocephalic and atraumatic Eyes General Eye ED: Yes normal appearance of both eyes Neck full ROM Chest Wall Chest: Negative for tenderness Resp normal respiratory effort and normal air movement Effort and Inspection: symmetric chest movement; Negative for respiratory distress Cardio regular rate and no murmurs Rhythm: abnormal rhythm Peripheral Pulses: pulses 2+ throughout GI normal to inspection, nondistended, normoactive bowel sounds and non-tender Palpation: Negative for guarding or rebound tenderness present Extremity normal to inspection General Extremety ED: Negative for edema or tenderness General Extremity: Negative for edema Neuro no sensory deficits noted Neuro Narrative: Alert person place told me the year is 2023. Stable moves the right arm and leg however weaker than the left side. Sensorium / Orientation: awake and alert Skin no rashes or lesions noted and no wounds MDM MDM MDM Narrative Medical decision making narrative: Interventions / MDM: Differential diagnosis: Transient confusion, history of CVA, Diagnosis considered but do not suspect: Infectious causes however UA chest x-ray negative. In treatment hemorrhage however CT negative. My EKG interpretation: A-fib rate of 56, no ST changes. Imaging independently reviewed and interpreted by myself: CT angiogram head and neck: No acute process patent stent left carotid. 1 view chest x-ray: Bilaterallower lobe atelectasis. Also read by radiology. External documents reviewed: N/A Test considered but not ordered:N/A ED course: Niece is concerned with his stroke history and failed stent. Currently mental status improving. She would like things evaluated. IV established for labs will cath for urine chest x-ray. Will obtain CT angiogram head and neck. Gentle fluids were given. Workup negative. Clinically feeling and looking much better on reevaluation. Blood pressure up to 120 systolic. Urine chest x-ray without infection. Discussed negative workup with patient and niece. Given patient will be discharged back to facility for further care. All questions were answered. Patient and niece. Re-evaluation: stable Disposition discussed with patient/family/significant other: Patient and niece Case discussed with consulting clinician: N/A This note was generated with intelloCut dictation software. It may contain incorrectwords, spelling, and punctuation that were not noted in checking the note beforesigning. Lab Data Attestation: I reviewed the patient's lab results. Labs: Laboratory Results - last 24 hr 12/26/24 12/26/24 20:30 21:41 WBC 5.4 RBC 4.07 L Hgb 12.3 L Hct 37.1 L MCV 91.2 MCH 30.2 MCHC 33.2 RDW Std Deviation 49.1 H RDW Coeff of Juan 14.6 Plt Count 222 MPV 10.4 Immature Gran % (Auto) 0.400 Neut % (Auto) 71.2 H Lymph % (Auto) 16.6 L Swisher % (Auto) 8.4 Eos % (Auto) 3.0 Baso % (Auto) 0.4 Absolute Neuts (auto) 3.8 Absolute Lymphs (auto) 0.89 Nucleated RBC % 0 Sodium 132 L Potassium 4.3 Chloride 97 L Carbon Dioxide 21.7 Anion Gap 13 BUN 17 Creatinine 1.10 Estim Creat Clear Calc 61.68 Est GFR (MDRD) Non-Af 67 BUN/Creatinine Ratio 15.4 Glucose 153 H Calcium 9.3 Total Bilirubin 0.47 AST 30 ALT 36 Alkaline Phosphatase 99 Total Protein 6.3 Albumin 3.8 Globulin 2.5 Albumin/Globulin Ratio 1.5 Urine Color Yellow Urine Clarity Clear Urine pH 6.5 Ur Specific [place] 1.010 Urine Protein 30 H Urine Glucose (UA) Normal Urine Ketones Negative Urine Occult Blood 10 H Urine Nitrite Negative Urine Bilirubin Negative Urine Urobilinogen Normal Ur Leukocyte Esterase Negative Urine RBC 0-5 SEEN Urine WBC 0-5 SEEN Ur Squamous Epith Cells 0 SEEN Amorphous Sediment 1+ Urine Bacteria 1+ Urine Mucus 0 SEEN Radiography Diagnostic Testing: Clinical Impression(s) from Imaging Studies Head/Neck CTA 12/26/24 20:50 IMPRESSION: No acute intracranial abnormality. Moderate volume loss and chronic small-vessel ischemic changes with chronic cortical infarct involving left middle frontal gyrus, and left subinsular slit-like encephalomalacia. Patent major intracranial and cervical arterial vasculature without any significant flow-limiting stenosis. Patent vascular stent in the distal left CCA-proximal ICA with thin eccentric noncalcified plaque. Reading Location: [facility] Chest X-Ray 12/26/24 21:20 IMPRESSION: Bibasilar atelectasis. Reading Location: [facility] Discharge Plan Triage Chief Complaint: Alt LOC ED Provider: Caio Wolff Dx/Rx/DC Orders Clinical Impression: Transient confusion, Chronic a-fib, Chronic anticoagulation, History of cerebrovascular accident (CVA) with residual deficit Instructions: ED AFIB, ED Confusion Prescriptions: No Action atorvastatin 80 mg Tablet 80 mg PO QHS clopidogrel [Plavix] 75 mg Tablet 75 mg PO DAILY tamsulosin [Flomax] 0.4 mg Capsule 0.4 mg PO DAILY metoprolol tartrate 50 mg Tablet 50 mg PO BID Eliquis 5 mg Tablet 5 mg PO BID doxazosin 1 mg tablet 1 mg PO QHS sennosides-docusate sodium [Stool Softener-Stimulant Laxat] 8.6-50 mg tablet 1 tab PO QHS pantoprazole 40 mg tablet,delayed release (DR/EC) 40 mg PO DAILY menthol-zinc oxide [Calmoseptine] 0.44-20.6 % ointment 1 applic topical BID@0600,2200 Protocol: *Topical Application Instructions APPLICATION INSTRUCTIONS: apply to buttocks and coccyx acetaminophen 500 mg Tablet 1,000 mg PO Q8 Qty: 0 0RF magnesium hydroxide [Dulcolax (magnesium hydroxide)] 400 mg/5 mL suspension 30 ml PO DAILY PRN (Reason: constipation) multivitamin [Daily Multi-Vitamin] Tablet 1 tab PO DAILY cholecalciferol (vitamin D3) [D3 DOTS] 50 mcg (2,000 unit) tablet 2,000 unit PO DAILY vitamin B complex [Balanced B-50] Tablet 1 tab PO DAILY acetaminophen [Aminofen] 325 mg tablet 650 mg PO Q4H PRN (Reason: fever or pain) magnesium hydroxide 400 mg/5 mL Suspension 30 ml PO PRN PRN (Reason: Constipation) bisacodyl 10 mg Suppository 10 mg NC PRN PRN (Reason: Constipation) loperamide [Anti-Diarrheal (loperamide)] 2 mg capsule 2 mg PO Q6H PRN (Reason: loose stool) tizanidine 4 mg tablet 4 mg PO QHS sertraline 25 mg tablet 25 mg PO DAILY nystatin 100,000 unit/gram powder 1 applic topical Q8H Primary Care Provider: Eligio Contreras Referrals: Eligio Contreras MD [Primary Care Provider] - Darwin Shields MD [Med Staff - Active Staff] - 1-2 Weeks Activity Restrictions/Additional Instructions: CT angiogram head and neck stable. No new findings. Patent stent left carotid. Labs stable. Urine negative for infection. Chest x-ray negative. Follow-up with cardiology as you requested. Continue home medications. Print Language: Guatemalan Disposition Disposition: Home, Self Care What to do if you have Problems For any increased pain, shortness of breath, bleeding, nausea or vomiting, chestpain, or any unexpected problems, contact your Primary Care Provider. Call [facility] ([phone]) or report to the closest Emergency Room. Call 911 if necessary. 12/27/24 0040 <Electronically signed by Caio Garibay> Cosigner Signature (if applicable): CC: Dr. Eligio Contreras MD ~ Signed [facility] Work Phone: [phone] Consult note [facility] Medical Records Department [address] [place] [address] Counseling Note - Pharmacy 09/02/24 1158 MR#: [id number] Acct: [id number] Name: MIRI CAI Rep #:[id number] : 1945 78 From: Maggy Mcgee PCP: Dr. Eligio Contreras MD Status:ADM IN Y Location: [place] [id number] [place] Med Reconciliation Pharmacy Service has performed discharge [...] 7,160 unit-vit C 113 mg-vit E 100 [id number]-[id number] tablet 1 tab PO DAILY Check with [...] bisacodyl 10 mg rectal suppository 10 mg NC .PRN X 1 PRN Constipation #0 ea 05/02/22 food supplemt, lactose-reduced 0.08 gram-1.5 kcal/mL oral liquid (Ensure Plus High Protein) 120 ml PO 4X/DAY #0 mL 05/02/22 magnesium hydroxide 400 mg/5 mL oral suspension 30 ml PO .PRN X 1 PRN Constipation #0 mL 05/02/22 oxymetazoline 0.05 % nasal spray (Afrin (oxymetazoline)) 2 spray intranasal [id number] epistaxis 3 days #15 mL 05/02/22 sodium [...] PO DAILY #40 tabs 09/02/24 09/02/24 1158 Date _ Maggy Garcia Signature (if applicable): Date CC: ~ Signed [facility]04-24-2025 Consult note Author Maggy Mcgee [facility] Note Date/Time September 02, 2024 3:4 8pm [facility] Medical Records Department [address] [place] [address] Counseling Note - Pharmacy 09/02/24 1158 MR#: [id number] Acct: [id number] Name: MIRI CAI Rep #:[id number] : 1945 78 From: Maggy Mcgee PCP: Dr. Eligio Contreras MD Status:ADM IN Location: [facility] [id number] Pharmacy [place] Med Reconciliation Pharmacy Service has performed discharge [...] 7,160 unit-vit C 113 mg-vit E 100 ohmx-vrxf-bmlqew tablet 1 tab PO DAILY Check with [...] bisacodyl 10 mg rectal suppository 10 mg NC .PRN X 1 PRN Constipation #0 ea 05/02/22 food supplemt, lactose-reduced 0.08 gram-1.5 kcal/mL oral liquid (Ensure Plus High Protein) 120 ml PO 4X/DAY #0 mL 05/02/22 magnesium hydroxide 400 mg/5 mL oral suspension 30 ml PO .PRN X 1 PRN Constipation #0 mL 05/02/22 oxymetazoline 0.05 % nasal spray (Afrin (oxymetazoline)) 2 spray intranasal [id number] epistaxis 3 days #15 mL 05/02/22 sodium [...] Signature (if applicable): Date CC: ~ Signed [facility] Work Phone: 1(163) 827-199904-24-2025 Discharge summary Author Merary Wong [facility] Note Date/Time September 02, 2024 11: 07[facility] Medical Records Department [address] [place] [address] Discharge Summary 09/02/24 1051 MR#: [id number] Acct: [id number] Name: MIRI CAI Cecily Rep #:[id number] : 1945 78 From: Merary Wong DO PCP: Dr. Eligio Contreras MD Status:ADM IN Location: [place] [address] Providers Date of Admission: 08/31/24 Date of [...] 7,160 unit-vit C 113 mg-vit E 100 ehmp-expe-uxakqi tablet 1 tab PO DAILY Check with [...] bisacodyl 10 mg rectal suppository 10 mg NC .PRN X 1 PRN Constipation #0 ea 05/02/22 food supplemt, lactose-reduced 0.08 gram-1.5 kcal/mL oral liquid (Ensure Plus High Protein) 120 ml PO 4X/DAY #0 mL 05/02/22 magnesium hydroxide 400 mg/5 mL oral suspension 30 ml PO .PRN X 1 PRN Constipation #0 mL 05/02/22 oxymetazoline 0.05 % nasal spray (Afrin (oxymetazoline)) 2 spray intranasal [id number] epistaxis 3 days #15 mL 05/02/22 sodium [...] who presented to the emergency department at [facility] on 08/31/2024 with chief complaint of shortness of breath, wheezing, and cough. Patient is wheelchair-bound at baseline and has chronic right-sided weakness and some expressive aphasia related to previous stroke. He is a resident at [facility] in [place] and they noted he was having some [...] 5 mg PO BID vit A-vit C-vit O-jllt-wojsap 7,160-113-100 alag-xl-ldiv Tablet 1 tab PO DAILY doxazosin 1 [...] 0RF bisacodyl 10 mg Suppository 10 mg NC .PRN X 1 PRN (Reason: Constipation) Qty: 0 0RF Ensure Plus High Protein 0.08 gram-1.5 kcal/mL Liquid 120 ml PO 4X/DAY Qty: 0 0RF magnesium hydroxide 400 mg/5 mL Suspension 30 ml PO .PRN X 1 PRN (Reason: Constipation) Qty: 0 0RF Deep Sea Nasal 0.65 % Aerosol,Durant 1 spray NASAL ACHS Qty: 0 0RF [...] Assisted Living Charges/Coding Visit Charges Inpatient E&M: 89711 Disch Hosp >30min 09/02/24 1107 <Electronically signed by Merary Wong DO> Cosigner Signature (if applicable): CC: Dr. Eligio Contreras MD; Dr. Merary Wong DO~ Signed [facility] Work Phone: 1(820) 554-856104-24-2025 Discharge summary [facility] Medical Records Department [address] [place] [address] Discharge Summary 09/02/24 1051 MR#: [id number] Acct: [id number] Name: MIRI CAI Rep #:[id number] : 1945 78 From: Merary Wong DO PCP: Dr. Eligio Contreras MD Status:ADM IN Location: [facility] [id number] Providers Date of Admission: 08/31/24 Date of [...] 7,160 unit-vit C 113 mg-vit E 100 hvvc-ancd-hbsvxm tablet 1 tab PO DAILY Check with [...] bisacodyl 10 mg rectal suppository 10 mg NC .PRN X 1 PRN Constipation #0 ea 05/02/22 food supplemt, lactose-reduced 0.08 gram-1.5 kcal/mL oral liquid (Ensure Plus High Protein) 120 ml PO 4X/DAY #0 mL 05/02/22 magnesium hydroxide 400 mg/5 mL oral suspension 30 ml PO .PRN X 1 PRN Constipation #0 mL 05/02/22 oxymetazoline 0.05 % nasal spray (Afrin (oxymetazoline)) 2 spray intranasal [id number] epistaxis 3 days #15 mL 05/02/22 sodium [...] who presented to the emergency department at [facility] on 08/31/2024 with chief complaint of shortness of breath, wheezing, and cough. Patient is wheelchair-bound at baseline and has chronic right-sided weakness and some expressive aphasia r elated to previous stroke. He is a resident at [facility] in [place] and they noted he was having some [...] 5 mg PO BID vit A-vit C-vit B-fbbc-qlkhjb 7,160-113-100 uaaz-yv-bxnm Tablet 1 tab PO DAILY doxazosin 1 [...] 0RF bisacodyl 10 mg Suppository 10 mg NC .PRN X 1 PRN (Reason: Constipation) Qty: 0 0RF Ensure Plus High Protein 0.08 gram-1.5 kcal/mL Liquid 120 ml PO 4X/DAY Qty: 0 0RF magnesium hydroxide 400 mg/5 mL Suspension 30 ml PO .PRN X 1 PRN (Reason: Constipation) Qty: 0 0RF Deep Sea Nasal 0.65 % Aerosol,Durant 1 spray NASAL ACHS Qty: 0 0RF [...] Assisted Living Charges/Coding Visit Charges Inpatient E&M: 42407 Disch Hosp >30min 09/02/24 1107 Cosigner Signature (if applicable): CC: Dr. Eligio Contreras MD; Dr. Merary Wong DO~ Signed [facility]04-24-2025 [facility] Medical Records Department [address] [place] [address] Discharge Summary 09/02/24 1051 MR#: [id number] Acct: [id number] Name: MIRI CAI Rep #: [id number] : 1945 78 From: Merary Wong DO PCP: Dr. Eligio Contreras MD Status:ADM IN Location: [place] [id number] Providers Date of Admission: 08/31/24 Date of [...] 7,160 unit-vit C 113 mg-vit E 100 szza-nytw-irynqe tablet 1 tab PO DAILY Check with [...] bisacodyl 10 mg rectal suppository 10 mg NC .PRN X 1 PRN Constipation #0 ea [...] who presented to the emergency department at [facility] on 08/31/2024 with chief complaint of shortness of breath, wheezing, and cough. Patient is wheelchair-bound at baseline and has chronic right-sided weakness and some expressive aphasia related to previous stroke. He is a resident at [facility] in [place] and they noted he was having some [...] 10 days due to (more content not included)...[facility]04-23-2025 Progress note Author Merray Wong [facility] Note Date/Time September 01, 2024 8:0 6pm [facility] Medical Records Department [address] [place] [address] Progress Note - Hospitalist 09/01/24 0840 MR#: [id number] Acct: [id number] Name: MIRI CAI Rep #:[id number] : 1945 78 From: Merary Wong DO PCP: Dr. Eligio Contreras MD Status:ADM IN Location: [place] [address] Reason for Visit Reason for Visit: Shortness [...] (Auto) 69.2, Lymph % (Auto) 15.7 L, Swisher % (Auto) 11.1 H, Eos % (Auto) [...] 89.6 H, Lymph % (Auto) 8.0 L, Swisher % (Auto) 1.7, Eos % (Auto) 0.2, [...] inspiration with some bibasilar atelectasis. Reading Location: [facility] Physical Exam Const alert, oriented x3, no [...] health - Patient currently resides at [facility] History of stroke with right-sided [...] no intubation Charges/Coding Visit Charges Inpatient E&M: 52863 Subs Hosp L2 09/01/242005 <Electronically signed by Merary Wong DO> Cosigner Signature (if applicable): CC: ~ Signed [facility] Work Phone: 1(596) 879-828204-23-2025 Progress note [facility] Medical Records Department [address] [place] [address] Progress Note - Hospitalist 09/01/24 0840 MR#: [id number] Acct: [id number] Name: MIRI CAI Rep #:[id number] : 1945 78 From: Merary Wong DO PCP: Dr. Eligio Contreras MD Status:ADM IN Location: [place] [address] Reason for Visit Reason for Visit: Shortness [...] (Auto) 69.2, Lymph % (Auto) 15.7 L, Swisher % (Auto) 11.1 H, Eos % (Auto) [...] 89.6 H, Lymph % (Auto) 8.0 L, Swisher % (Auto) 1.7, Eos % (Auto) 0.2, [...] inspiration with some bibasilar atelectasis. Reading Location: [facility] Physical Exam Const alert, oriented x3, no [...] for assistance with discharge planningas patient may [facility] - Patient currently resides at [facility] History of stroke with right-sided [...] no intubation Charges/Coding Visit Charges Inpatient E&M: 78690 Subs Hosp L2 09/01/242005 Cosigner Signature (if applicable): CC: ~ Signed [facility]04-23-2025 History and physical note Author An Multani [facility] Note Date/Time September 01, 2024 6:1 3am [facility] Medical Records Department [address] [place] [address] H&P Exam - Hospitalist 08/31/243 MR#: [id number] Acct: [id number] Name: MIRI CAI Rep #:[id number] : 1945 78 From: An Salazar DO PCP: Dr. Eligio Contreras MD Status:ADM IN Location: [facility] [id number] HPI - General General Date of Admission: [...] Left total shoulder replacement who presents to [facility] ER after staff at [facility] noted [...] is expected to extend beyond 2 midnights. [facility] Medical History Esophageal stenosis History of left [...] with primary 02/19/22 Unknown History E 100 ptvl-jskk-egfenu tablet doctor doxazosin 1 mg tablet 1 [...] Pain Compound 0 click topical BID ##0 2 07/03 Unknown Rx acetaminophen 500 mg tablet 1,000 mg (2 x 500 mg) PO Q 8 #0 tabs 05/02/22 Unknown Rx bisacodyl 10 mg rectal suppository 10 mg NC .PRN X 1 P RN Constipation 05/02/22 [...] (Auto) 69.2, Lymph % (Auto) 15.7 L, Swisher % (Auto) 11.1 H, Eos % (Auto) [...] inspiration with some bibasilar atelectasis. Reading Location: [facility] Assessment & Plan Assessment/Plan (1) Acute bronchitis [...] 75 minutes. Charges/Coding Visit Charges Inpatient E&M: 55546 Init Hosp L3 09/01/24 0613 <Electronically signed by An Cassidy DO> Cosigner Signature (if applicable): CC: Dr. Eligio Contreras MD; Dr. An Cassidy DO~ Signed [facility] Work Phone: 1(221) 277-670504-23-2025 History and physical note [facility] Medical Records Department [address] [place] [address] H&P Exam - Hospitalist 08/31/241 MR#: [id number] Acct: [id number] Name: MIRI CAI Rep #:[id number] : 1945 78 From: An Salazar DO PCP: Dr. Eligio Contreras MD Status:ADM IN Location: [facility] ED284-4 [facility] - General General Date of Admission: 08/31/24 [...] Left total shoulder replacement who presents to [facility] ER after staff at [facility] noted [...] is expected to extend beyond 2 midnights. [facility] Medical History Esophageal stenosis History of left [...] with primary 02/19/22 Unknown History E 100 atyc-zzwk-hsztep tablet doctor doxazosin 1 mg tablet 1 [...] bisacodyl 10 mg rectal suppository 10 mg NC .PRN X 1 P RN Constipation 05/02/22 [...] (Auto) 69.2, Lymph % (Auto) 15.7 L, Swisher % (Auto) 11.1 H, Eos % (Auto) [...] inspiration with some bibasilar atelectasis. Reading Location: [facility] Assessment & Plan Assessment/Plan (1) Acute bronchitis [...] 75 minutes. Charges/Coding Visit Charges Inpatient E&M: 59808 Init Hosp L3 09/01/24 0613 Cosigner Signature (if applicable): CC: Dr. Eligio Contreras MD; Dr. An Cassidy, DO~ Signed [facility]04-23-2025 Evaluation note* Diagnosis Onset Date Resolution Status Admit Date Acute bronchitis due to respiratory syncytial virus acute Apri l 2024 10:59pm Acute bronchospasm acute August 31, 2024 10:59pm Anticoagulated acute August 10:59pm History of atrial fibrillation acute August 31, 2024 10:59pm History of CVA with residual deficit acute August 31, 2024 10:59pm Hypoxia acute August 31 10:59pm Obesity (BMI 30-39.9) acute Apr il 2024 10:59pm Respiratory insufficiency acute August 31, 2024 10:59pm Right hemiplegia acute August 312024 10:59pm RSV infection acute August 31, 2024 10:59pm [facility] Work Phone: 1(543) 670-572004-23-2025 Evaluation note* Diagnosis Onset Date Resolution Status Admit Date Acute bronchitis due to respiratory syncytial virus acute Apri l 2024 10:59pm RSV infection acute August 31, 2024 10:59pm Acute bronchospasm resolved August 31, 2024 10:59pm Hypoxia resolved August 31 10:59pm Respiratory insufficiency resolved August 31, 2024 10:59pm Anticoagulated inactive August 10:59pm History of atrial fibrillation inact josette August 31, 2024 10:59pm History of CVA with residual deficit inactive August 31, 2024 10:59pm Obesity (BMI 30-39.9) inactive Apr il 2024 10:59pm Right hemiplegia inactive August 312024 10:59pm [facility] Work Phone: 1(651) 537-672704-23-2025 Discharge summary Author Jayden Sanchez [facility] Note Date/Time August 31, 2024 10: 52pm [facility] Medical Records Department [address] [place] [address] Emergency Department Summary 08/31/24 MR#: [id number] Acct: [id number] Name: MIRI CAI Rep #:[id number] : 1945 78 From: Jayden Johnson PCP: Dr. Eligio Contreras MD Status:ADM ZACK Location: [place] [address] HPI History of Present Illness Chief Complaint: Shortness of Breath Informant: patient, family, EMS and SNF Narrative Narrative: 78-year-old male from [facility] presenting to the emergency room with cough [...] chronic A-fib. At baseline patient is wheelchair-bound. [facility] Medical History Esophageal stenosis History of left [...] with primary 02/19/22 Unknown History E 100 dtiv-tzls-jeyvkd tablet doctor doxazosin 1 mg tablet 1 mg PO QHS urine 04/12/22 U nknown History menthol 0.44 %-zinc oxide 20.6 % 1 applic topical BID@ 0600,2200 12/02/22 Unknown History topical ointment (Calmoseptine) cream pantoprazole [...] bisacodyl 10 mg rectal suppository 10 mg NC .PRN X 1 P RN Constipation 05/02/22 [...] a moderate expressive aphasia. Chronic right-sided weakness Pruden Coma Scale: document GCS findings Spontaneous Obeys [...] (Auto) 69.2 Lymph % (Auto) 15.7 L Swisher % (Auto) 11.1 H Eos % (Auto) [...] inspiration with some bibasilar atelectasis. Reading Location: [facility] Management Discussion w/another healthcare provider: Hospitalist (Dr Cassidy) Discharge Plan Dx/Rx/DC Orders Clinical Impression: Acute bronchitis due to respiratory syncytial virus, Acute bronchospasm, Anticoagulated Disposition Disposition: Acute Care Hospital [facility] What to do if you have Problems For any increased pain, shortness of breath, bleeding, nausea or vomiting, chestpain, or any unexpected problems, contact your Primary Care Provider. Call [facility] ([phone]) or report to the closest Emergency Room. Call 911 if necessary. 08/31/242251 <Electronically signed by Jayden Sanchez DO> Cosigner Signature (if applicable): CC: Dr. Eligio Contreras MD ~ Signed [facility] Work Phone: 1(897) 541-235104-22-2025 Discharge summary [facility] Medical Records Department [address] [place] [address] Emergency Department Summary 08/31/24 MR#: [id number] Acct: [id number] Name: MIRI CAI Rep #:[id number] : 1945 78 From: Jayden Johnson PCP: Dr. Eligio Contreras MD Status:ADM ZACK Location: [place] [address] HPI History of Present Illness Chief Complaint: Shortness of Breath Informant: patient, family, EMS and SNF Narrative Narrative: 78-year-old male from [facility] presenting to the emergency room with cough [...] chronic A-fib. At baseline patient is wheelchair-bound. [facility] Medical History Esophageal stenosis History of left [...] with primary 02/19/22 Unknown History E 100 cueb-qsmx-rcvrny tablet doctor doxazosin 1 mg tablet 1 [...] Pain Compound 0 click topical BID ##0 2 07/03 Unknown Rx acetaminophen 500 mg tablet 1,000 mg (2 x 500 mg) PO Q 8 #0 tabs 05/02/22 Unknown Rx bisacodyl 10 mg rectal suppository 10 mg NC .PRN X 1 P RN Constipation 05/02/22 [...] a moderate expressive aphasia. Chronic right-sided weakness Pruden Coma Scale: document GCS findings Spontaneous Obeys [...] (Auto) 69.2 Lymph % (Auto) 15.7 L Swisher % (Auto) 11.1 H Eos % (Auto) [...] inspiration with some bibasilar atelectasis. Reading Location: [facility] Management Discussion w/another healthcare provider: Hospitalist (Dr Cassidy) Discharge Plan Dx/Rx/DC Orders Clinical Impression: Acute bronchitis due to respiratory syncytial virus, Acute bronchospasm, Anticoagulated Disposition Disposition: Acute Care Hospital [facility] What to do if you have Problems For any increased pain, shortness of breath, bleeding, nausea or vomiting, chestpain, or any unexpected problems, contact your Primary Care Provider. Call [facility] ([phone]) or report tothe closest Emergency Room. Call 911 if necessary. 08/31/242251 Cosigner Signature (if applicable): CC: Dr. Eligio Contreras MD ~ Signed [facility]04-22-2025 Radiology Diagnostic study note [facility] Imaging Services [address] [place], [place] [address] Chest PA and Lateral MR#: [id number] Acct: [id number] Name: MIRI CAI Rep #: [id number] : 1945 M 78 From: Bakari Hua MD PCP: Dr. Eligio Contreras MD Status: REG ER Study:Chest PA and Lateral Date of Exam: 08/31/24 Exam# [id number] Ordering Dr: Nara Sanchez DO PROCEDURE: CHEST PA AND LATERAL 08/31/2024 REASON FOR EXAM: COUGH TECHNIQUE: Frontal and lateral views of the chest. FINDINGS: Hardware: None Heart: Heart size is moderately enlarged. Mediastinum: The mediastinal contour is unremarkable. Lungs: Poor inspiration with some bibasilar atelectasis. Bones: The bones are unremarkable. RAD/Chest PA and Lateral IMPRESSION: Poor inspiration with some bibasilar atelectasis. Reading Location: [id number] CC: Dr. Eligio Contreras MD; Dr. Jayden Sanchez, DO ~ Chief Maintenance Supervisor: Signed [facility]01-11-2023 Miscellaneous Notes* Telephone Encounter - Kirsty Rehman RN - 05/22/2022 1:01 PM EST MODIFIED TALHA SCORE POST-DISCHARGE Telephone Visit Patient Name: Miri Cai Today's date: May 22, 2022 Date of discharge: February 19, 2022 Person giving information: Piero Villeda. Relationship to patient: sister. Contact information: [phone] Contact attempt: #1 Patient discharge location: Acute Rehab Patient current location: [facility] Presentation to ED or readmission after discharge: No Modified Talha Score: 90 days post discharge: 5 = Severe disability. Bedridden, incontinent. Requires constant care & attention. Mortality: No Sister states that Miri cannot use his right side at all, and has very limited verbal capabilities. He has continued therapy but needs 24-hour care; he is a two-person assist for everything. Does attempt to feed himself at times. Signature: Kirsty Rehman RN May 22, 2022 1:01 PM documented in this encounterMer[facility]01-05-2023 Miscellaneous Notes* Telephone Encounter - Sadie Bowles - 05/16/2022 3:46 PM EST Sent first no show letter. Sadie Bowles * Telephone Encounter - Sadie Bowles - 05/16/2022 11:01 AM EST Called patient to advise of missed appointment. No answer and answering machine beeps and states its full. Unable to leave message. Sadie Bowles documented in this encounterMer[facility]11-15-2022 NoteHNO ID: [id number] Author: Belkis Nam PA-C Service: ? Author Type: Physician Work Station Support Specialist Type: Progress Notes Filed: 03/26/2022 2:50 PM [...] a stroke. He was taken up to [facility]. He was in a acute care facility [...] Procedure Laterality Date NON-MELANOMA SKIN CANCER TUMOR [facility] 10/2021 REMV CATARACT EXTRACAP,INSERT LENS Bilateral 06/2021 [...] pain medication as needed, (more content not included)...[facility]11-15-2022 History of Present illness Narrative* Belkis Nam [...] a stroke. He was taken up to [facility]. 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 documented in this encounterMer[facility]. [facility]10-14-2022 Miscellaneous Notes* Telephone Encounter - Carson Bullock [...] Sadie Bowles - 02/22/2022 9:22 AM EDT [facility] called still has not received fax [...] Sadie Bowles - 02/21/2022 3:26 PM EDT [facility] called checking on this. I advised of below, She is requesting protocol be faxed to [phone] If there is any other concerns [facility] can be reached by phone at [phone] Sadie Bowles * Telephone Encounter - Belkis [...] 02/20/2022 12:47 PM EDT HE IS AT [facility] FOLLOWING A STROKE AND IS ADMITTED TO REHAB. NEED TO KNOW WHEN SURGICAL DRESSING CAN BE REMOVED, FANY/SUTURE REMOVAL AND WHAT THERAPY IS ALLOWED. ALSO NEED TO KNOW IF SLING IS WORN ALL OF THE TIME. [facility] documented in this encounterMercy Health St. [facility]10-11-2022 NoteHNO ID: [id number] Author: Hubert Salgado RPh Service: Pharmacy Author [...] - Pt going to Rehab Hubert Salgado RPh February 19, 2022 11:20 AM Pager: Ext # [phone] 02/19/2022 11:20 AM Medication List START taking [...] [facility]2022 NoteHNO ID: [id number] Author: Susana Frey RN Service: Care Management [...] 19, 2022 TIME: 9:11 AM PAGER/CONTACT #: [phone] [facility] 02-19-2022 NoteHNO ID: [id number] Author: Faisal Crews MD Service: Hospital Medicine Author Type: Physician Type: Progress Notes Filed: 02/19/2022 8:40 AM Note Text: DEPARTMENT OF HOSPITAL MEDICINE PROGRESS NOTE SERVICE DATE: 02/19/2022 SERVICE TIME: 7:12 AM Hospital Medicine/Primary Attending: Faisal Crews MD NIGHT AND WEEKEND COVERAGE: [place] COVERAGE: After 7pm, please call cross cover pager #[phone] Subjective INTERVAL HPI: Patient seen and examined. Epic reviewed. LADARIUSON. MEDICATIONS: Reviewed Objective PHYSICAL EXAM: BP 135/77 [...] -- 02/08/22 0600 activity - mobilize patient ([place]) 02/07/22 0330 vte pharmacologic prophylaxis contraindicated ([place]) 02/07/22 0330 pneumatic compression stockings ([place], [place]) 02/07/22 0330 graduated compression stockings ([place]) VTE Prophylaxis: VTE prophylaxis appropriate Disposition: [place] Plan of care discussed with: Provider, RN, Patient Disclaimer: Portions of this note may have been generated using intelloCut voice recognition software. Reasonable efforts were made [...] written. Faisal Crews MD Internal Medicine Pager: Bridgette Smith 02/19/22 7:13 [facility]10-10-2022 NoteHNO ID: [id number] Author: Susana Frey RN Service: Care Management Author Type: Registered Nurse Type: Care Mgt Progress Note Filed: 02/18/2022 1:21 PM Note Text: CARE MANAGEMENT PROGRESS NOTE SERVICE DATE: 02/18/2022 SERVICE TIME: 1:19 PM LOS: 11 days Needs Prior to Discharge: Discharge Transportation IMM Follow Up Copy Given: Yes Copy given to:: Patient Method: In Person Clinical updates sent to [facility]. Patient can admit when medically ready, no auth needed as patient is traditional Medicare AANDB. Transport packet on chart. Transport on standby. SIGNATURE: Susana Frey RN PATIENT NAME: Miri Cai DATE: February 18, 2022 TIME: 1:19 PM PAGER/CONTACT #: [phone] [facility] 02-18-2022 NoteHNO ID: [id number] Author: Bonnie Aguilera DO Service: Hospital Medicine Author Type: Physician Type: Progress Notes Filed: 02/18/2022 11:38 AM Note Text: DEPARTMENT OF HOSPITAL MEDICINE PROGRESS NOTE SERVICE DATE: 02/18/2022 SERVICE TIME: 10:12 AM Hospital Medicine/Primary Attending: Bonnie Aguilera DO NIGHT AND WEEKEND COVERAGE: [place] COVERAGE: After 7pm, please call cross cover pager #[phone] Subjective INTERVAL HPI: went into afib this [...] -- 02/08/22 0600 activity - mobilize patient (md,wy) 02/07/22 0330 vte pharmacologic prophylaxis contraindicated (md,wy) 02/07/22 0330 pneumatic compression stockings (md,oh) 02/07/22 0330 graduated compression stockings (md,wy) VTE Prophylaxis: VTE prophylaxis appropriate Disposition: SNF when rates controlled Plan of care discussed with: Provider, RN, Patient SIGNATURE: Bonnie Aguilera DO PATIENT NAME: Miri Cai DATE: February 18, 2022 TIME: 10:12 AM etx [id number] NoteHNO ID: [id number] Author: Chely Cobb MD Service: Hospital Medicine [...] Pt on Eliquis low dose - Head CT: 02/16/22 - [...] on Flomax Disposition - Follow up with patient care specialist recs. Per note no Precert needed and [...] -- 02/08/22 0600 activity - mobilize patient (md,oh) 02/07/22 0330 vte pharmacologic prophylaxis contraindicated (md,oh) 02/07/22 0330 pneumatic compression stockings (md,oh) 02/07/22 033 graduated compression stockings (md,oh) VTE Prophylaxis: VTE prophylaxis appropriate SIGNATURE: Chely Cobb MD PATIENT NAME: Miri Cai DATE: February 17, 2022 TIME: 12:03 [facility]10-08-2022 NoteHNO ID: [id number] Author: Chely Cobb MD Service: Hospital Medicine [...] evaluation with needing Rehab - Pt on [facility] low dose - Head CT today 02/16/22: [...] - Stable on Flomax Disposition - Per patient care specialist Medication and Non-Pharmacologic VTE Prophylaxis/Anticoagulants Anticoagulant AND Antiplatelet Medications (From admission, onward) Start Dose Route Frequency Last Action Ordered Stop 02/15/22 1900 apixaban 2.5 mg tab(s) (ELIQUIS) (apixaban tab(s) (ELIQUIS)) 2.5 mg ORAL 2 TIMES DAILY Given, 02/16 0808 02/15/22 1522 -- 02/08/22 0900 clopidogrel 75 mg tab(s) (PLAVIX) 75 mg PO/FT DAILY Given, 02/16 0802/08/22 0445 -- 02/08/22 0600 activity - mobilize patient (md,wy) 02/07/22 033 vte pharmacologic prophylaxis contraindicated (md,wy) 02/07/22 033 pneumatic compression stockings (md,wy) 02/07/22 033 graduated compression stockings ([place]) VTE Prophylaxis: VTE prophylaxis appropriate SIGNATURE: Chely Cobb MD PATIENT NAME: Miri Cai DATE: February 16, 2022 TIME: 3:33 [facility]10-08-2022 NoteHNO ID: [id number] Author: Gerri Guzman RN Service: Nursing Author Type: Registered Nurse Type: Nursing Progress Note Filed: 02/16/2022 6:29 AM Note Text: Page to [facility] admitting for admission [facility] 02-16-2022 NoteHNO ID: [id number] Author: Interface Note Service: ? Author Type: ? Type: Progress Notes Filed: 02/16/2022 3:10 AM Note Text: Epic Scheduled Downtime: 02/16/2022 1:00:00 AM to 02/16/2022 2:54:00 [facility]10-07-2022 NoteHNO ID: [id number] Author: April Garcia MD Service: Hospital Medicine Author Type: Physician Type: Progress Notes Filed: 02/15/2022 6:36 PM Note Text: Subjective - Follow up for [facility] Medicine, this is day 8 of this stay, chart reviewed below. PAST MEDICAL HISTORY Diagnosis Date Arrhythmia Diabetes mellitus (HCC) Essential hypertension Per ICU 02/07 - 'Patient is a 76 year old M with past medical history significant for HTN, DM type 2, pAF on Eliquis (held for surgery), who presents as transfer from [place] ED with findings of acute L MCA stroke. Patient was admitted to [facility] after undergoing elective left shoulder replacement yesterday [...] given recent surgery. Plan to transfer to [facility] for mechanical thrombectomy. However, patient could only be transported via ground d/t weather. Given delay, long discussion had between Dr. Alexander, stroke neurology, Hospital team at [place] and ortho surgeon. Ultimately decided to administer [...] in III, aVF suggestive of possible late TN. Patient appears comfortable and in no distress. Taken to NIL for thrombectomy. NSICU admit post NIL for continued stroke management. ' Per Neurology 02/14 - Reviewed MRI brain with Dr. Mckeon, Will repeat head CT in the morning [...] from neuro standpoint. Per Neurology 02/15 - CT brain: Acute left MCA territory infarct. Confluent petechial hemorrhage in the left basal ganglia infarct is better visualized on previous MR. No space-occupying hematoma. Local mass effect. Okay to start eliquis today in addition to the plavix (will need to stay on plavix d/t stent) and stop the aspirin' Per case mgr 02/15 - 'Patient with ischemic stroke. DC plan is for AR at [facility]. They can accept patient when [...] iv bolu (more content not included)...[facility] 02-15-2022 NoteHNO ID: [id number] Author: Susana Frey RN Service: Care Management Author Type: Registered Nurse Type: Care Mgt Progress Note Filed: 02/15/2022 2:51 PM Note Text: CARE MANAGEMENT PROGRESS NOTE SERVICE DATE: 02/15/2022 SERVICE TIME: 2:38 PM LOS: 8 days Patient with ischemic stroke. DC plan is for AR at [facility]. They can accept patient when ready. No precert needed as patient is Medicare AANDB. Transport packet on chart DC cot transport on standby IMM given. Please contact family at dc time. SIGNATURE: Susana Frey RN PATIENT NAME: Miri Cai DATE: February 15, 2022 TIME: 2:38 PM PAGER/CONTACT #: [phone] [facility] 02-14-2022 NoteHNO ID: [id number] Author: Max Nazario APRN.JENNIFER Service: Neurology General Author Type: Nurse Practitioner Type: Plan of Care Filed: 02/14/2022 3:37 PM Note Text: Neurology Reviewed MRI brain with Dr. Mckeon, Will repeat head CT in the morning [...] OK for discharge from neuro standpoint. Max Nazario, AUTOMOTIVE PARTS INTERPRETER.OLAP DEVELOPER #[id number] [facility]10-06-2022 NoteHNO ID: [id number] Author: Susana Frey RN Service: Care Management Author Type: Registered Nurse Type: Care Mgt Progress Note Filed: 02/14/2022 2:21 PM Note Text: CARE MANAGEMENT PROGRESS NOTE SERVICE DATE: 02/14/2022 SERVICE TIME: 2:21 PM LOS: 7 days IMM Follow Up Copy Given: Yes Copy given to:: Patient Curtain Stitcher Curtain Stitcher Name/Relationship: patient, sister, and niece, all verbalized understanding Method: In Person SIGNATURE: Susana Frey RN PATIENT NAME: Miri Cai DATE: February 14, 2022 TIME: 2:21 PM PAGER/CONTACT #: [phone] [facility]ia Hospital 02-14-2022 NoteHNO ID: [id number] Author: Susana Frey RN Service: Care Management Author Type: Registered Nurse Type: Care Mgt Progress Note Filed: 02/14/2022 2:20 PM Note Text: CARE MANAGEMENT PROGRESS NOTE SERVICE DATE: 02/14/2022 SERVICE TIME: 2:19 PM LOS: 7 days Needs Prior to Discharge: Discharge Transportation;To Be Determined Updated patient and family (sister and niece) that [facility] can accept patient. Patient is traditional Medicare A AND B and will not need precert. Patient will need dc transport. SIGNATURE: Susana Frey RN PATIENT NAME: Miri Cai DATE: February 14, 2022 TIME: 2:19 PM PAGER/CONTACT #: [phone] Light Acadia Hospital 02-14-2022 NoteHNO ID: [id number] Author: Srinivas Fields MD Service: Hospital Medicine Author Type: Physician Type: Progress Notes Filed: 02/14/2022 12:16 PM Note Text: DEPARTMENT OF HOSPITAL MEDICINE PROGRESS NOTE Hospital Medicine/Primary Attending: Srinivas Fields MD NIGHT AND WEEKEND COVERAGE: [place] COVERAGE: After 7pm, please call cross cover pager #[phone] Subjective INTERVAL HPI: Pt seen and examined. [...] for surgery), who presents as transfer from [place] ED with findings of acute L MCA stroke. Patient was admitted to [facility] after undergoing elective left shoulder replacement yesterday [...] given recent surgery. Plan to transfer to [facility] for mechanical thrombectomy. However, patient could only be transported via ground d/t weather. Given delay, long discussion had between Dr. Alexander, stroke neurology, Hospital team at [place] and ortho surgeon. Ultimately decided to administer [...] in III, aVF suggestive of possible late TN. Patient appears comfortable and in no distress. Taken to NIL for thrombectomy. NSICU admit post NIL for continued stroke management. # Acute left MCA stroke # Left MCA occlusion -TNK administration at 2230 02/06 -S/p NIL for L ICA/MCA stenting 02/07 -C/b re-occlusion of LICA stent and ba (more content not included)...[facility]10-05-2022 NoteHNO ID: [id number] Author: Srinivas Fields MD Service: Hospital Medicine Author Type: Physician Type: Progress Notes Filed: 02/13/2022 1:54 PM Note Text: DEPARTMENT OF HOSPITAL MEDICINE PROGRESS NOTE Hospital Medicine/Primary Attending: Srinivas Fields MD NIGHT AND WEEKEND COVERAGE: ENSIGN COVERAGE: After 7pm, please call cross cover pager #[phone] Subjective INTERVAL HPI: Pt seen and examined. [...] for surgery), who presents as transfer from [place] ED with findings of acute L MCA stroke. Patient was admitted to [facility] after undergoing elective left shoulder replacement yesterday [...] given recent surgery. Plan to transfer to [facility] for mechanical thrombectomy. However, patient could only be transported via ground d/t weather. Given delay, long discussion had between Dr. Alexander, stroke neurology, Hospital team at [place] and ortho surg (more content not included)...[facility] 02-13-2022 NoteHNO ID: [id number] Author: Emma Farooq RN Service: Care Management Author Type: Registered Nurse Type: Care Mgt Progress Note Filed: 02/13/2022 10:45 AM Note Text: CARE MANAGEMENT PROGRESS NOTE SERVICE DATE: 02/13/2022 SERVICE TIME: 1035 LOS: 6 days Needs Prior to Discharge: Bed Availability;Discharge Transportation Chart reviewed, plan for patient to transition to a RNF today. Met with patient at bedside today to discuss Rehab options. Pt. Still with expressive aphasia, however is able to verbalize that he has no preference in Acute Rehab facilities. Family is requesting [facility] Acute inpatient unit, they have accepted patient. Placed TC to patient's sister Laura [phone]. Updated her on acceptance by [facility]. Pt. Will need cot transportation at d/c. Will continue to follow. SIGNATURE: Emma Farooq RN PATIENT NAME: Miri Cai DATE: February 13, 2022 TIME: 10:35 AM PAGER/CONTACT #: [phone] 02-12-2022 NoteHNO ID: [id number] Author: Ryan Pal MD Service: Neurology ICU [...] dysarthria. MOTOR STRENGTH: RUE 2/5, LUE 5/5 bell staff strength ( limited by Ortho), RLE 3/5, [...] Is Patient Clinically Ready to Transfer to [facility] or SDU?: No Discharge Planning: To be [...] for surgery), who presents as transfer from [place] ED with findings of acute L MCA stroke. Patient was admitted to [facility] after undergoing elective left shoulder replacement yesterday [...] given recent surgery. Plan to transfer to [facility] for mechanical thrombectomy. However, patient could only be transported via ground d/t weather. Given delay, long discussion had between Dr. Alexander, stroke neurology, Hospital team at [place] and ortho surgeon. Ultimately deci (more content not included)...[facility]10-03-2022 NoteHNO ID: [id number] Author: Roby Alexander MD Service: ? Author Type: Physician Type: Progress Notes Filed: 02/11/2022 3:37 PM Note Text: Progress Note dictated.[facility]10-03-2022 NoteHNO ID: [id number] Author: Ryan Pal MD Service: Neurology ICU [...] Is Patient Clinically Ready to Transfer to [facility] or SDU?: No Discharge Planning: To be determined Prevention: Line Status: Central multi-lumen catheter Central Line Status: Reason to maintain Central Line Reason to Maintain: Vasoactive meds Praks Status: None Pressure Injury Status: None GI/Stress [...] for surgery), who presents as transfer from [place] ED with findings of acute L MCA stroke. Patient was admitted to [facility] after undergoing elective left shoulder replacement yesterday [...] given recent surgery. Plan to transfer to [facility] for mechanical thrombectomy. However, patient could only be transported via ground d/t weather. Given delay, long discussion had between Dr. Alexander, stroke neurology, Hospital team at [place] and ortho surgeon. Ultimately decided to administer TNK. This was given at 2230. Shortly thereafter, patient reportedly diaphoretic and concern for ST elevation in II, III, aVF on EKG. On arrival (more content not included)...[facility]10-03-2022 NoteHNO ID: [id number] Author: Roby Alexander MD Service: ? Author Type: Physician Type: Progress Notes Filed: 02/27/2022 6:34 PM Note Text: [facility] - Progress Note PATIENT NAME: MIRI CAI CSN: [id number] DATE OF : 1945 SEX/AGE: M/76 PATIENT TYPE: I HOSP SVC: ICU LOCATION: [id number] DATE OF SERVICE: 02/11/2022 TIME OF SERVICE: [...] the patient. Roby Alexander MD Neurosurgery FA:ezekiel /[id number]10-[facility]-2022 NoteHNO ID: [id number] Author: Emma Farooq RN Service: Care Management [...] following choices from patient's family. [facility], Second choice [facility] and third choice [facility]. Referrals sent to [facility] and [facility]. No insurance auth needed for Acute Rehab, will need accepting facility and cot transportation. Will continue to follow. SIGNATURE: Emma Farooq RN PATIENT NAME: Miri Cai DATE: February 11, 2022 TIME: 9:43 AM PAGER/CONTACT #: [phone] 02-10-2022 NoteHNO ID: [id number] Author: Tisha Ashford APRN.CNP Service: Neurology ICU [...] brisk. EOMs intact. Right facial droop. RUE: 06/16/ RLE: 07/14. LUE: RYDER (immobilized d/t shoulder [...] Is Patient Clinically Ready to Transfer to [facility] or SDU?: No Discharge Planning: To be [...] for surgery), who presents as transfer from [place] ED with findings of acute L MCA stroke. Patient was admitted to [facility] after undergoing elective left shoulder replacement yesterday [...] given recent surgery. Plan to transfer to [facility] for mechanical thrombectomy. However, patient could only be transported via ground d/t weather. Given delay, long discussion had between Dr. Alexander, stroke neurology, Hospital team at [place] and ortho surgeon. Ultimately decided to administer [...] in III, aVF suggestive of possible late TN. Patient appears comfortable and in no distress. Taken to NIL for thrombectomy. NSICU admit post NIL for continued stroke management. Neurology * Acute ischemic left MCA stroke (HCC) Acute L MCA stroke 2/2 left cerv (more content not included)...[facility]10-02-2022 History of Past illness Narrative* Problem [...] of this encounter (statuses as of 03/01/2022) [facility]10-02-2022 History of Past illness Narrative* Problem Noted [...] of this encounter (statuses as of 03/26/2022) [facility]10-02-2022 History of Past illness Narrative* Problem Noted [...] of this encounter (statuses as of 05/17/2022) [facility]10-02-2022 History of Past illness Narrative* Problem Noted Date Resolved Date Urinary retention 02/10/2022 02/19/2022 Last Assessment & Plan: PLAN: - Flomax - Straight cath per protocol Acute ischemic left MCA stroke 02/07/2022 1 Last Assessment & Plan: Acute L MCA stroke 2/2 left cervical ICA and MCA occlusion Cardio embolic in setting of being off OAC d/t recent surgery TNK administration at 2230 9 S/p NIL for L ICA/MCA stenting 02/07 [...] of this encounter (statuses as of 05/22/2022) [facility]10-02-2022 History of Past illness Narrative* Problem Noted [...] d/t recent surgery TNK administration at 2230 9 S/p NIL for L ICA/MCA stenting 02/07 [...] of this encounter (statuses as of 01/30/2023) [facility]10-01-2022 NoteHNO ID: [id number] Author: Tisha Ashford APRN.CNP Service: Neurology ICU [...] LUE: RYDER (immobilized d/t shoulder replacement). LLE: /. CV: S1 S2 irregular. A. Flutter on [...] Is Patient Clinically Ready to Transfer to [facility] or SDU?: No Discharge Planning: To be [...] RVR w/ rate 120s-130s on arrival On [facility] outpatient, however, this was held 3 days [...] Stop 02/08/22 (more content not included)...[facility]09-30-2022 NoteHNO ID: [id number] Author: Roby Alexander MD Service: ? Author Type: Physician Type: Progress Notes Filed: 02/08/2022 4:46 PM Note Text: Progress Note dictated.[facility]09-30-2022 NoteHNO ID: [id number] Author: Emma Farooq RN Service: Care Management Author Type: Registered Nurse Type: Care Mgt Progress Note Filed: 02/08/2022 3:56 PM Note Text: CARE MANAGEMENT PROGRESS NOTE SERVICE DATE: 02/08/2022 SERVICE TIME: 4 LOS: 1 day Needs Prior to Discharge: To Be Determined;Accepting Facility;Facility or Agency Choices;Discharge Transportation [place] of Choice Given: Yes Level of Care Discussed: Inpatient Rehab Facility Financial Disclosure Provided: Yes Financial Disclosure Comments: CC Affiliation Provider List: Rehab Facility Provider list within the patient's requested geographic area shared with the patient/family: Yes within: 25 miles of zip code: [address] (and [address]) Quality and resource use metrics shared with the patient that are relevant to the patient's goals of care and treatment preferences:: Yes Chart reviewed, PT is recommending Acute Rehab LOC. Provided patient with FOC list and emailed copy to patient's niece and nephew ( Franchesca and Christopher ). Provided facilities near patient's home and his sisters in [place]. Will need FOC and available bed prior to d/c. Will continue to follow. SIGNATURE: Emma Farooq RN PATIENT NAME: Miri Cai DATE: February 08, 2022 TIME: 3:54 PM PAGER/CONTACT #: [phone] 02-08-2022 NoteHNO ID: [id number] Author: Jose Alfredo Espinosa MD Service: Neurology ICU Author Type: Resident Type: Procedures Filed: 02/08/2022 2:00 PM Note Text: Attestation signed by Dora Yeboah MD at 02/08/2022 2:26 PM NICU STAFF I personally supervised this procedure on Miri Cai. I was present for the timeout and throughout the critical portion of the procedure. Dora Yeboah M.D Staff Chiropractor Sole Practitioner Pager [phone] Date : February 08, 2022 BEDSIDE PROCEDURE NOTE ART LINE/SHEATH Procedure Date/Start Time: 02/08/2022 1:59 PM Performed by: Jose Alfredo Espinosa MD Authorized by: Dora Yeboah MD This procedure has been performed in part by a resident/fellow under attending's direction Informed Consent Consent Obtained: Written [place] Protocol A moment to CARE was completed. [...] DATE: February 08, 2022 TIME: 1:[address] [place], [place] 2179009-30-2022 NoteHNO ID: [id number] Author: Max Nazario APRN.CNP Service: Neurology ICU Author Type: Nurse Practitioner Type: Procedures Filed: 02/08/2022 2:00 PM Note Text: BEDSIDE PROCEDURE NOTE CENTRAL LINE INSERTION Date/Start Time: 02/08/2022 3:30 PM Performed by: Max Nazario APRN.OLAP DEVELOPER Authorized by: Max Nazario APRN.OLAP DEVELOPER Informed Consent Consent Obtained: Written [place] Protocol A moment to CARE was completed. [...] was applied following the usual aseptic technique. [facility] Central Line Insertion Checklist, attached to the [...] of Care Visit completed when applicable SIGNATURE: Max Nazario APRN.CNP PATIENT NAME: Miri Cai DATE: February 08, 2022 TIME: 1:[address] [place], [place] 2179009-30-2022 NoteHNO ID: [id number] Author: Hubert Salgado RPh Service: Pharmacy Author Type: Pharmacist Type: Plan of Care Filed: 02/18/2022 9:20 AM Note Text: PHARMACY MEDICATION REVIEW Patient Name: Miri Cai : 1945 The following medications were updated within the SHAMP[facility]ERSON medication list: Medications ADDED to [facility]ERSON medication list na Medications CHANGED on [facility]ERSON medication list na Medications REMOVED from [facility]ERSON medication list MULTIVITAMIN ORAL OTHER Yes Yes Saccharomyces boulardii (PROBIOTIC, S.BOULARDII,) 250 mg capsule OTHER Yes Yes THYROID ORAL OTHER Yes Yes cartilage/collagen/bor/hyalur (JOINT HEALTH ORAL) OTHER Yes Yes coenzyme K04-E-xrzrwgrhs-idj E (HEALTHY HEART FORMULA ORAL) OTHER Yes Yes homeopathic drugs (CIRCULATION ORAL) OTHER Yes Yes magnesium carb,citrate,oxide (MAGNESIUM COMPLEX ORAL) OTHER Yes Yes mv-min/FA/D3/om-3/dha/epa/fish (ADULT MULTI PLUS OMEGA-3 ORAL) OTHER Yes Yes saw/vit E/sod yael/lyc/beta/pyg (PROSTATE HEALTH ORAL) OTHER Yes Yes vit A/C/E ac/ZnOx/cupric oxide (EYE VITAMIN AND MINERALS ORAL) Yes Yes [facility] 02/06/2022 reported medications Additional comments: Al medication information came from [facility] Medication Review report on 02/06/2022 ([facility]ERSON meds) and CheckPoint HR e-script [facility]. A copy of the medication list was placed into the physical chart for review if needed. There are 13 supplements/homeopathic entries on the SHAMP[facility] PERSON list. The medications filled with [facility] are Eliquis and Metoprolol. I have added the supplements to the SHAMPOO PERSON list (see above). Also [facility] reports Metoprolol Succinate 25mg was dc'd on 01/18/2022. Pt. takes Metoprolol Succinate 50mg daily. Required follow up for nursing: Medication History completed by Historian. No nursing follow up required. The below information represents the best possible medication history: Yes Medication history completed by: Filament Cutter: Javed Valentine (Dynamic Balancer Set Up Worker) Source of history: [facility] review of medications and [employer]Point HR e-script Medication nonadherence identified: Unable to assess Reconciliation completed: Yes Completed by: Hubert Salgado (Pharmacist)] All [facility]ERSON medications addressed by LIP Patient interested in Bedside Delivery Services or using OP Pharmacy at discharge? Unable to assess Preferred outpatient pharmacy: [facility] #[id number] [place] [id number] - [address] [facility] [phone] [id number] Allergies: No Known Allergies Prior to Admission [...] 1,000 Units by mouth twice daily. coenzyme K86-E-tppdbdusu-eop E (HEALTHY HEART FORMULA ORAL) OTHER Yes [...] Vision Essential Facility-Administered Medications: None Javed Valentine (Dynamic Balancer Set Up Worker) phone [phone] 02/08/[facility]09-30-2022 NoteHNO ID: [id number] Author: Dora Yeboah MD Service: Neurology ICU [...] * ==== STAFF COORDINATION OF CRITICAL CARE [facility] Staff Physician note of personal involvement in [...] FELIX panel pending Please see the documented [id number] plan in the updated problem list. Plan of care discussed with: Provider, RN, Patient and Family/Significant Other: Family . Dora Yeboah MD Staff, Neurointensive Care Neurological [place] Date of Service: 02/08/2022 Time of Service: 12:16 PM This is an electronically created document. If printed, please do not remove from the chart or modify printed copy.[facility]09-30-2022 NoteHNO ID: [id number] Author: Roby Alexander MD Service: ? Author Type: Physician Type: Progress Notes Filed: 02/27/2022 6:34 PM Note Text: [facility] - Progress Note PATIENT NAME: MIIR CAI CSN: [id number] DATE OF : 1945 SEX/AGE: M/76 PATIENT TYPE: I HOSP SVC: ICU LOCATION: [id number] DATE OF SERVICE: 02/07/2022 TIME OF SERVICE: [...] the patient. Roby Alexander MD Neurosurgery FA:modl /[id number] Light [facility]09-30-2022 NoteHNO ID: [id number] Author: Roby Alexander MD Service: ? Author Type: Physician Type: Progress Notes Filed: 02/27/2022 6:34 PM Note Text: [facility] - Progress Note PATIENT NAME: MIRI CAI CSN: [id number] DATE OF : 1945 SEX/AGE: M/76 PATIENT TYPE: I HOSP SVC: ICU LOCATION: [id number] DATE OF SERVICE: 02/08/2022 TIME OF SERVICE: [...] the patient. Roby Alexander MD Neurosurgery FA:ezekiel /[id number] NoteHNO ID: [id number] Author: Cleo Claire PA-C Service: Neurology ICU Author Type: Physician Work Station Support Specialist Type: Progress Notes Filed: 02/08/2022 5:53 AM [...] Gauge 2 days Peripheral 02/06/22 Admission to [facility] Short Right Forearm 20 Gauge 2 [...] Is Patient Clinically Ready to Transfer to [facility] or SDU?: No Discharge Planning: To be [...] and updating family with Staff Physician, Dr. Akbar Assessment AND Plan Active Hospital Problems as of 02/08/2022 Noted - [facility] * (Principal) Acute ischemic left MCA stroke [...] RVR w/ rate 120s-130s on arrival On [facility] outpatient, however, this was held 3 days [...] PLAN: - Goal SBP <[address] Alexander recs post NIL intervention - PRN antihypertensives Hx of atrial flutter (more content not included)...[facility] 02-07-2022 NoteHNO ID: [id number] Author: Cleo Claire PA-C Service: Neurology ICU Author Type: Physician Work Station Support Specialist Type: Plan of Care Filed: 02/07/2022 8:16 [...] Limited ROM to LUE d/t recent surgery. 5/ hand bell staff. 5/5 LLE. RUE/RLE /5 Sensation: diminished light touch RUE/RLE . Pulses [...] Cleo Claire PA-C February 07, 2022 7:00 [facility]09-29-2022 NoteHNO ID: [id number] Author: Roby Alexander MD Service: ? Author Type: Physician Type: Procedures Filed: 02/07/2022 6:30 PM Note Text: BRIEF OP/PROCEDURE NOTE NEURO INTERVENTIONAL PROCEDURE DATE: February 07, 2022 LOG ID: [id number] Surgery/Procedure Date: 02/07/2022 Incision/Procedure Start Time: 5:38 PM Incision Close/Procedure End Time: Anesthesia: Procedural Sedation PRIMARY PROCEDURALIST: liu PROFESSIONAL NURSING TUTOR(S): Roby Alexander MD PROCEDURE: Arterial Access Date: 02/07/22 Arterial Access Time : 1737 First Pass (Device) Date: 02/07/22 First Pass (Device) Time: 174 TICI Date: 02/07/22 TICI Time: 1809 TICI: (2c) Antegrade perfusion showing near complete recanalization (range 95-99%) , Indications: LT hemispheric stroke Access Site: Rt HAND SPRAYER PRE-PROCEDURE DIAGNOSIS: stroke POST-PROCEDURE DIAGNOSIS: occlusion Lt CCA/ICA stent FINDINGS: occlusion Lt CCA/ICA stent ESTIMATED BLOOD LOSS: 20 ml COMPLICATIONS: None RADIATION DOSE: Exceeded 5 Gy - No SPECIMENS: Not Applicable SIGNATURE: Roby Alexander MD PATIENT NAME: Miri Cai DATE: February 07, 2022 TIME: 6:29 [facility]09-29-2022 NoteHNO ID: [id number] Author: ADAMS Sultana Service: Care Management Author Type: Mechanical Drafter Type: Care Mgt Progress Note Filed: 02/07/2022 1:13 PM Note Text: CARE MANAGEMENT PROGRESS NOTE SERVICE DATE: 02/07/2022 SERVICE TIME: 1:11 PM LOS: 0 days Stroke depression screen Pt has expressive aphasia and unable to participate in stroke depression screen at this time. SIGNATURE: ADAMS Sultana PATIENT NAME: Miri Cai DATE: February 07, 2022 TIME: 1:10 PM PAGER/CONTACT #: [phone] 02-[facility]-2022 NoteHNO ID: [id number] Author: Emma Farooq RN Service: Care Management [...] CVA ADVANCE DIRECTIVES Current Advance Directive: None Parole Supervisor Attempted to Assist with AD Completion: Yes [...] discharge within 30 days: No PATIENT SCREEN Patient/Curtain Stitcher Stated Goals: To improve my functional status;To [...] 07, 2022 TIME: 12:50 PM CONTACT #: [phone]2022 NoteHNO ID: [id number] Author: Roby Alexander MD Service: ? Author Type: Physician Type: Progress Notes Filed: 02/08/2022 4:44 PM Note Text: Progress note [facility]09-29-2022 NoteHNO ID: [id number] Author: Cleo Claire PA-C Service: Neurology ICU Author Type: Physician Work Station Support Specialist Type: Plan of Care Filed: 02/07/2022 5:16 [...] 80s-90s Cleo Claire PA-C February 07, 2022 3:30[facility]09-29-2022 NoteHNO ID: [id number] Author: Roby Alexander MD Service: ? Author Type: Physician Type: Procedures Filed: 02/07/2022 2:48 AM Note Text: BRIEF OP/PROCEDURE NOTE NEURO INTERVENTIONAL PROCEDURE DATE: February 07, 2022 LOG ID: [id number] Surgery/Procedure Date: 02/06/2022 Incision/Procedure Start Time: 1:41 AM Incision Close/Procedure End Time: Anesthesia: General PRIMARY PROCEDURALIST: liu PROFESSIONAL NURSING TUTOR(S): Roby Alexander MD PROCEDURE: Arterial Access Date: 02/07/22 Arterial Access Time : 0141 First Pass (Device) Date: 02/07/22 First Pass (Device) Time: 0200 TICI Date: 02/07/22 TICI Time: 219 TICI: (3) Antegrade complete perfusion of the downstream ischemic territory , Indications: stroke Access Site: Rt HAND SPRAYER PRE-PROCEDURE DIAGNOSIS: Lt hemispheric stroke POST-PROCEDURE DIAGNOSIS: the same . S/p stemting Lt ICA and two M2 branches FINDINGS: Occlusion cervical Lt ICA and two M2 branches ESTIMATED BLOOD LOSS: 20 ml COMPLICATIONS: None RADIATION DOSE: Exceeded 5 Gy - No SPECIMENS: Not Applicable SIGNATURE: Roby Alexander MD PATIENT NAME: Miri Cai DATE: February 07, 2022 TIME: 2:45 AM[facility] NoteHNO ID: [id number] Author: Jerome Ram APRN.RN HEMO DIALYSIS Service: Anesthesiology Author Type: Nurse Type Soldering Machine Tender Type: Anesthesia Procedure Notes Filed: 02/07/2022 1:50 AM Note Text: ANESTHESIOLOGY PROCEDURE NOTE Airway General Information Procedure Start Time/Medication Administration: 02/07/2022 1:40 AM Procedure End Time: 02/07/2022 1:41 AM Patient location during procedure: OR Timeout Performed Pre-procedure: timeout performed Consent Obtained: Yes Patient identity confirmed: arm band Staffing RN HEMO DIALYSIS: Jerome Ram APRN.RN HEMO DIALYSIS Performed by: RN HEMO DIALYSIS Indications and Patient Condition Indications for airway [...] 1 Airway not difficult SIGNATURE: Jerome Ram APRN.RN HEMO DIALYSIS PATIENT NAME: Miri Cai DATE: February 07, 2022 TIME: 1:49 AM CSN: [id number] [facility]-29-[facility]22 NoteHNO ID: [id number] Author: Cleo Claire PA-C Service: Neurology ICU Author Type: Physician Work Station Support Specialist Type: Plan of Care Filed: 02/07/2022 1:39 [...] follow for additional recommendations. Cleo Claire PA-C #[id number] NoteHNO ID: [id number] Author: Aquiles Guillaume MD Service: ? Author Type: Physician Type: Progress Notes Filed: 02/07/2022 7:49 AM Note Text: TELESTROKE DOCUMENTATION Name: Miri Cai : 1945 Referring Site: [place] Referring Provider: Dr Ortez Last Known Well [...] Finding Details (Specify): early ischemia L insula (/) ASPECTS 9 along with hyperdense LMCA CTA [...] TNK high and going for thrombectomy at [facility] where he may also require DAPT load and possible L KATIUSKA, so TNK NOT administered -- SEE ADDENDUM BELOW given delay in transport for thrombectomy, discussion with ortho, inventory accountant, Dr Alexander - decision was made to give TNK Agreement to proceed with IV Thrombolysis treatment given by: Other (Specify) Lencho Escalante, gaurav, and Dr Ortez discussed with family IV [...] or advanced imaging) Planned Facility for Transfer: [facility] Telephone Only: Minutes spent reviewing pertinent diagnostic data and discussing patient care with the referring physician: 28 More than 50 percent of the encounter was spent on coordinating care of the patient during a telestroke. Thank you for contacting the [facility] Tel[facility]roke Network. I appreciate the opportunity for allowing me to participate in Mrii Cai's care. Please feel free to contact me and/or the [facility] Tel[facility]roke [facility] at any time if you [...] delayed obviously given circumsta (more content not included)...[facility]09-28-2022 History of Present illness Narrative* Aquiles Guillaume MD - 02/06/2022 10:41 PM EDT TELESTROKE DOCUMENTATION Name: Miri Cai : 1945 Referring Site: [place] Referring Provider: Dr Ortez Last Known Well [...] TNK high and going for thrombectomy at [facility] where he may also require DAPT load [...] or advanced imaging) Planned Facility for Transfer: [facility] Telephone Only: Minutes spent reviewing pertinent diagnostic data and discussing patient care with the referring physician: 28 More than 50 percent of the encounter was spent on coordinating care of the patient during a telestroke. Thank you for contacting the [facility]. I appreciate the opportunity for allowing me to participate in Miri Cecily Cai's care. Please feel free to contact me and/or the [facility] Tel[facility]roke [facility] at any time if you [...] 2022 11:08 PM ] documented in this encounterMercy Health St. [facility]09-22-2022 NoteHNO ID: [id number] Author: Carson Bullock III, DO Service: ? [...] Procedure Laterality Date NON-[place] SKIN CANCER TUMOR [facility] 10/2021 REMV CATARACT EXTRACAP,INSERT LENS Bilateral 06/2021 [...] which included preparing to see the patient, [id number] patient care, completing clinical documentation, obtaining and/or reviewing separately obtained history, performing a medically appropriate examination, counseling and educating the patient/family/caregiver, ordering medications, tests, or procedures, independently interpreting results (not separately reported), communicating results to the patient/family/caregiver, and care (more content not included)...[facility]09-22-2022 Miscellaneous Notes* Telephone Encounter - Ellen Davila [...] reminder card was provided. Per Deloris at [facility] surgeryscheduling- he is to arrive at 9:00 a.m. as he is using public trransportation. Informed Consent was placed in the chart for the provider to review and sign with the patient. All other questions wereanswered. I instructed them to call in with any concerns/questions. Ellen Davila RN documented in this encounterMercy Health St. [facility]-2022 Miscellaneous Notes* Telephone Encounter - Carson Bullock [...] on clearances from his PCP and his traveling passenger agent. He states he was scheduled to see his PCP but cancelled it this morning since he was told we had his clearances. He will call back to reschedule his appointment with his PCP. Advised patient to call his traveling passenger agent for clearance appointment since his phone was out and they could not call him to schedule. Hannah Pavon documented in this encounterMercy Health St. [facility]-15-2022 Miscellaneous Notes* Telephone Encounter - Ellen Davila [...] received a call from the lab at [facility] regarding the results and advised that I instruct the patient to continue those two medications until indicated otherwise. Will notify him when he stops into the office. Ellen Davila RN * Telephone Encounter - Ellen Davila RN - 01/24/2022 11:00 AM EDT I received a call from cardiology at [facility] regarding this patients EKG report. He is currently in atrial flutter due to stopping his Metoprolol and Eliquis yesterday with no recommendation from the prescribing physician. His phone is broken so he is planning on coming into our office today. I reached out to Araceli at [facility] pre-op to inform her of the above. Ellen Davila RN documented in this encounterMercy Health St. [facility]09-15-2022 Miscellaneous Notes* Telephone Encounter - Ta Poe - 01/24/2022 12:16 PM EDT Rafat Beltran at [facility], Approved; Auth # [id number] 01/15/2022-01/15/2023 Ta Poe * Telephone Encounter - Ta Poe - 01/15/2022 12:07 PM EDT Per Concha Beltran at [facility], [place] [id number] [place] [id number] does require an auth. Auth has been sent via [facility] website and is pending; Call ref # [id number] Ta Poe * Telephone Encounter - Hannah Pavon - 01/15/2022 11:00 AM EDT Miri Cai 1945 Date of Surgery: 02/06/2022 Surgeon's Name: Carson Bullock III, DO Facility: [facility] Surgery: Left Reverse total shoulder arthroplasty; open biceps tenodesis Surgical Diagnosis: M19.012 Primary osteoarthritis of left shoulder (primary encounter diagnosis) S46.102A Injury of tendon of long head of left biceps, initial encounter M25.512, G89.29 Chronic left shoulder pain CPT Code: 10766, 26290 ICD 10: M19.012, S46.102 documented in this encounterMer[facility]. [facility]09-02-2022 Miscellaneous Notes* Telephone Encounter - Hannah Pavon [...] schedule surgery. Hannah Pavon documented in this [facility]08-17-2022 Miscellaneous Notes* Telephone Encounter - Kerri Abraham - 12/26/2021 2:[address] SCAN SCHEDULED 01/10/22. KERRI documented in this encounterMercy Health St. [facility]08-16-2022 NoteHNO ID: [id number] Author: Carson Bullock III, DO Service: ? [...] Laterality Date NON-MELAN[place] SKIN CANCER TUMOR [facility]ARD [facility] 10/2021 REMV CATARACT EXTRACAP,INSERT LENS [...] which included preparing to see the patient, [id number] patient care, completing clinical documentation, obtaining and/or reviewing separately obtained history, performing a medically appropriate examination, counseling and educating the patient/family/caregiver, ordering medications, tests, or procedures, independently interpreting results (not separately reported), communicating results to the patient/family/caregiver, and care coordination (not separately reported). TREATMENT RISK AND MORBIDITY: Moderate (more content not included)...[facility]08-16-2022 History of Present illness Narrative* Carson Bullock III, DO - 12/25/2021 11:15 AM EDT ESTABLISHED PATIENT [...] Laterality Date NON-M[place] SKIN CANCER TUMOR BOARD [facility] 10/2021 REMV CATARACT EXTRACAP,INSERT LENS [...] which included preparing to see the patient, [id number] patient care, completing clinical documentation, obtaining and/or [...] by Renee Mullins MA. documented in this encounterMercy Health St. [facility]08-08-2022 NoteHNO ID: [id number] Author: An Lee MD Service: ? Author [...] a high shelf. 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 Brandy Benoit scribe, transcribing for An Lee MD PAIN EVALUATION 12/17/2021 1318 Pain Level: 4 ALLERGIES No Known Allergies PAST MEDICAL HISTORY Diagnosis Date Arrhythmia Diabetes mellitus (HCC) Essential hypertension PAST SURGICAL HISTORY Procedure Laterality Date NON-M[place] SKIN CANCER TUMOR BOARD [facility] 10/2021 REMV CATARACT EXTRACAP,INSERT LENS Bilateral 06/2021 REPAIR INCISIONAL HERNIA,REDUCIBLE 2008 History reviewed. No pertinent family history. Social [...] osteoarthritis right an (more content not included)... [facility]08-08-2022 History of Present illness Narrative* An Lee [...] a high shelf. 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 Brandy Benoit scribe, transcribing for An Lee MD PAIN EVALUATION 12/17/2021 1318 Pain Level: 4 ALLERGIES No Known Allergies PAST MEDICAL HISTORY Diagnosis Date Arrhythmia Diabetes mellitus (HCC) Essential hypertension PAST SURGICAL HISTORY Procedure Laterality Date NON-M[place] SKIN CANCER TUMOR [facility] - [facility] 10/2021 REMV CATARACT EXTRACAP,INSERT LENS Bilateral 06/2021 REPAIR INCISIONAL HERNIA,REDUCIBLE 2008 History reviewed. No pertinent family history. Social [...] are not fully corrected. documented in this encounterMercy Health St. [facility] CenterEvaluation note* Diagnosis Chronic pain of both shoulders- Primary Pain in joint, shoulder region Primary osteoarthritis of shoulders, bilateral documented in this encounter [facility]* Diagnosis Primary osteoarthritis of left shoulder- Primary Primary localized osteoarthrosis, shoulder region Injury of tendon of long head of left biceps, initial encounter Chronic left shoulder pain Pain in joint, shoulder region documented in this encounter [facility] Diagnosis Primary osteoarthritis of left shoulder- Primary Primary localized osteoarthrosis, shoulder region Injury of tendon of long head of left biceps, initial encounter Preoperative testing Preoperative examination, unspecified Diabetes mellitus due to underlying condition with hyperglycemia, with long-term current use of insulin (HCC) documented in this encounter [facility]* Diagnosis Acute ischemic left ICA stroke (HCC)- Primary Unspecified cerebral artery occlusion with cerebral infarction documented in this encounter 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* Diagnosis Onset Date Resolution Status Acute [...] Epistaxis resolved Hypokalemia resolved Urine retention resolved [facility] Work Phone: Hospital Discharge instructionsAdditional Instructions CT angiogram head and neck stable. No new findings. Patent stent left carotid. Labs stable. Urine negative for infection. Chest x-ray negative. Follow-up with cardiology as you requested. Continue home medications.[facility] Work Phone: Reason for referral (narrative)* Diagnostic Procedure Only (Routine) - Pending Review Specialty Diagnoses / Procedures Referred By Contac t Referred To Contact XR IMAGING Diagnoses Chronic pain of both shoulders Procedures XR SHOULDER GENERAL 3V OR MORE AP/TRUE AP/OTHER LEFT RADEX SHOULDER COMPLETE MINIMUM 2 VIEWS An Lee MD [facility] [employer] [address] [place] [address] Xr Imaging Referral ID Status Reason Start Date Expiration Date Visits Requested Visits Authorized [id number] Pending Review Auto-Generat ed Referral 12/17/2021 01/16/2023 1 1 * Diagnostic Procedure Only (Routine) - Pending Review Specialty Diagnoses / Procedures Referred By Contac t Referred To Contact XR IMAGING Diagnoses Chronic pain of both shoulders Procedures XR SHOULDER GENERAL 3V OR MORE AP/TRUE AP/OTHER RIGHT RADEX SHOULDER COMPLETE MINIMUM 2 VIEWS An Lee MD [facility] [employer] [address] [place] [id number] Xr Imaging Referral ID Status Reason Start Date Expiration Date Visits Requested Visits Authorized [id number] Pending Review Auto-Generat ed Referral 12/17/2021 01/16/[address] [facility] for referral (narrative)* Outpatient Procedure (Routine) - Pending Review Specialty Diagnoses / Procedures Referred By Wagner t Referred To Contact [facility] Diagnoses Primary osteoarthritis of left shoulder Injury of tendon of long head of left biceps, initial encounter Preoperative testing Procedures ECG COMPLETE ECG ROUTINE ECG W/LEAST 12 LDS W/I&R Carson Bullock III, DO [address] [place] [address] [facility] [address] [place] [address] Referral ID Status Reason Start Date Expiration Date Visits Requested Visits Authorized [id number] Pending Review Auto-Generat ed Referral 01/12/2022 01/11/2023 1 1 [facility] Diagnostic Procedure Only (Routine) - Pending Review Specialty Diagnoses / Procedures Referred By Wagner villela Referred To Contact XR IMAGING Diagnoses Primary osteoarthritis of left shoulder Procedures XR SHOULDER LIMITED 2V AP/TRUE AP LEFT RADEX SHOULDER COMPLETE MINIMUM 2 VIEWS Belkis Nam PA-C [address] [facility] [address] [place] [address] Xr Imaging Referral ID Status Reason Start Date Expiration Date Visits Requested Visits Authorized [id number] Pending Review Auto-Generat ed Referral 2 04/25/2023 1 1 [facility] (narrative)No reason for referral information availableWMary [facility] Work Phone: Summary Purpose Family History No [...] Will No April 12 4:17pm Power of Tableau Analyst No April 12, 2022 4:17pm Advance Directive Response Recorded Date/ Time Do you have a Healthcare Pow er of Tableau Analyst? Yes August 31, 2024 11:50pm Name of Medical Power of Tableau Analyst Franchesca ramey August 31, 2024 11:50pm Advance Directive Response Recorded Date/ Time Do you have a Healthcare Pow er of Tableau Analyst? Yes December 26, 2024 7:40pm Do you have a Healthcare Pow er of Tableau Analyst? Yes August 31, 2024 11:50pm Name of Medical Power of Tableau Analyst Franchesca ramey August 31, 2024 11:50pm Reason for Referral Specialty Diagnoses / Procedures Referred By Wagner villela Referred To Contact CT IMAGING Diagnoses Primary osteoarthritis of left shoulder Chronic left shoulder pain Procedures CT SHOULDER WO IVCON LT CT UPPER EXTREMITY W/O CONTRAST MATERIAL Carson Bullock III, DO [address] [place] [address] [address] [place] [id number] Imaging Referral ID Status Reason Start Date Expiration Date Visits Requested Visits Authorized [id number] Pending Review Auto-Generat ed Referral 12/25/2021 01/24/2023 1 1 Chief Complaint and Reason for Visit Chief Complaint STROKE STROKE STROKE STROKE STROKE STROKE STROKE STROKE STROKE STROKE STROKE STROKE STROKE FOLLOW-UP VISIT [facility] ACUTE CARE VISIT [facility] DEBILITY due to embolic L MCA [...] History of CVA with residual deficit Apr il 2024 10:59pm Hypoxia August 31, 2024 10: 59pm Obesity (BMI 30-39.9) August 31, 2024 1 0:59pm Respiratory insufficiency August 31 10:59pm Right hemiplegia August 31, 2024 10: 59pm RSV infection August 31, 2024 10: 59pm Chief Complaint Admit Date RSV AND ACUTE BRONCHITIS August 31 10:59pm RSV AND ACUTE BRONCHITIS September 01 8:40am RSV AND ACUTE BRONCHITIS September 02 10:51am alt loc December 26, 2024 7: 35pm Reason for Visit Admit Date Acute bronchitis due to respiratory sync ytial virus August 31, 2024 10:59pm RSV infection August 31, 2024 10: 59pm Acute bronchospasm August 31, 2024 10: 59pm Hypoxia August 31, 2024 10: 59pm Respiratory insufficiency August 31 10:59pm Anticoagulated August 31, 2024 10: 59pm History of atrial fibrillation August 10:59pm History of CVA with residual deficit Apr il 2024 10:59pm Obesity (BMI 30-39.9) August 31, 2024 1 0:59pm Right hemiplegia August 31, 2024 10: 59pm Health Concerns [...] section and content) DATE CREATED AUTHOR 10/21/2018 [facility] DATE CREATED AUTHOR AUTHOR'S ORGANIZ ATION 07/11/2019 [facility] ([place]) DATE CREATED AUTHOR AUTHOR'S ORGANIZ ATION 06/06/2021 [employer] DATE CREATED AUTHOR AUTHOR'S ORGANIZ ATION 06/10/2021 [facility] DATE CREATED AUTHOR AUTHOR'S ORGANIZ ATION 09/21/2021 [facility] DATE CREATED AUTHOR AUTHOR'S ORGANIZ ATION 02/10/2022 [facility] DATE CREATED AUTHOR AUTHOR'S ORGANIZ ATION 02/11/2022 [facility] DATE CREATED AUTHOR AUTHOR'S ORGANIZ ATION 05/16/2022 [facility] DATE CREATED AUTHOR AUTHOR'S ORGANIZ ATION 05/23/2022 [facility] DATE CREATED AUTHOR AUTHOR'S ORGANIZ ATION 01/02/2025 [facility] Source Comments (unrecognize d section and content) In the event this informatio n is protected by the Federal Confidentiality of Alcohol and Drug Abuse Patient Records regulations: The Federal rules restrict any use of the information to criminally investigate or prosecute any alcohol or drug abuse patient.[facility] Center[facility] the event this information is protected by the Federal Confidentiality of Alcohol and Drug Abuse Patient Records regulations: The Federal rules restrict any use of the information to criminally investigate or prosecute any alcohol or drug abuse patient.[facility] CenterIn the event this information is protected by the Federal Confidentiality of Alcohol and Drug Abuse Patient Records regulations: The Federal rules restrict any use of the information to criminally investigate or prosecute any alcohol or drug abuse patient.[facility] CenterIn the event this information is protected by the Federal Confidentiality of Alcohol and Drug Abuse Patient Records regulations: The Federal rules restrict any use of the information to criminally investigate or prosecute any alcohol or drug abuse patient.[facility] CenterIn the event this information is protected by the Federal Confidentiality of Alcohol and Drug Abuse Patient Records regulations: The Federal rules restrict any use of the information to criminally investigate or prosecute any alcohol or drug abuse patient.[facility] CenterIn the event this information is protected by the Federal Confidentiality of Alcohol and Drug Abuse Patient Records regulations: The Federal rules restrict any use of the information to criminally investigate or prosecute any alcohol or drug abuse patient.[facility] CenterIn the event this information is protected by the Federal Confidentiality of Alcohol and Drug Abuse Patient Records regulations: The Federal rules restrict any use of the information to criminally investigate or prosecute any alcohol or drug abuse patient.[facility] CenterIn the event this information is protected by the Federal Confidentiality of Alcohol and Drug Abuse Patient Records regulations: The Federal rules restrict any use of the information to criminally investigate or prosecute any alcohol or drug abuse patient.[facility] CenterIn the event this information is protected by the Federal Confidentiality of Alcohol and Drug Abuse Patient Records regulations: The Federal rules restrict any use of the information to criminally investigate or prosecute any alcohol or drug abuse patient.[facility] CenterIn the event this information is protected by the Federal Confidentiality of Alcohol and Drug Abuse Patient Records regulations: The Federal rules restrict any use of the information to criminally investigate or prosecute any alcohol or drug abuse patient.[facility] CenterIn the event this information is protected by the Federal Confidentiality of Alcohol and Drug Abuse Patient Records regulations: The Federal rules restrict any use of the information to criminally investigate or prosecute any alcohol or drug abuse patient.[facility] CenterIn the event this information is protected by the Federal Confidentiality of Alcohol and Drug Abuse Patient Records regulations: The Federal rules restrict any use of the information to criminally investigate or prosecute any alcohol or drug abuse patient.[facility] CenterIn the event this information is protected by the Federal Confidentiality of Alcohol and Drug Abuse Patient Records regulations: The Federal rules restrict any use of the information to criminally investigate or prosecute any alcohol or drug abuse patient.[facility] CenterIn the event this information is protected by the Federal Confidentiality of Alcohol and Drug Abuse Patient Records regulations: The Federal rules restrict any use of the information to criminally investigate or prosecute any alcohol or drug abuse patient.[facility] CenterIn the event this information is protected by the Federal Confidentiality of Alcohol and Drug Abuse Patient Records regulations: The Federal rules restrict any use of the information to criminally investigate or prosecute any alcohol or drug abuse patient.[facility] CenterIn the event this information is protected by the Federal Confidentiality of Alcohol and Drug Abuse Patient Records regulations: The Federal rules restrict any use of the information to criminally investigate or prosecute any alcohol or drug abuse patient.[facility] CenterIn the event this information is protected by the Federal Confidentiality of Alcohol and Drug Abuse Patient Records regulations: The Federal rules restrict any use of the information to criminally investigate or prosecute any alcohol or drug abuse patient.[facility] CenterIn the event this information is protected by the Federal Confidentiality of Alcohol and Drug Abuse Patient Records regulations: The Federal rules restrict any use of the information to criminally investigate or prosecute any alcohol or drug abuse patient.[facility] CenterIn the event this information is protected by the Federal Confidentiality of Alcohol and Drug Abuse Patient Records regulations: The Federal rules restrict any use of the information to criminally investigate or prosecute any alcohol or drug abuse patient.[facility] CenterIn the event this information is protected by the Federal Confidentiality of Alcohol and Drug Abuse Patient Records regulations: The Federal rules restrict any use of the information to criminally investigate or prosecute any alcohol or drug abuse patient.[facility] Reason for Visit (unrecogniz ed section and [...] No Show Reason Onset Date Comments Modified [place] [facility] 05/22/2022 Care Teams (unrecognized sec tion and content) [employer] Adjuster Relationship Specialty Start Date End Date Palak Kidd PA [address] [place] [address] PCP - General Family Practice 01/15/22 [employer] Adjuster Relationship Specialty Start Date End Date aPlak Kidd PA [address] [place] [address] PCP - General Family Practice 01/15/22 [employer] Adjuster Relationship Specialty Start Date End Date Palak Kidd PA [address] [place] [address] PCP - General Family Practice 01/15/22 [employer] Adjuster Relationship Specialty Start Date End Date Palak Kidd PA [address] [place] [address] PCP - General Family Medicine 01/15/22 [employer] Adjuster Relationship Specialty Start Date End Date Palak Kidd PA [address] [place] [address] PCP - General Family Medicine 01/15/22 [employer] Adjuster Relationship Specialty Start Date End Date Palak Kidd PA [address] [place] [address] PCP - General Family Medicine 01/15/22 W[employer] Adjuster Relationship Specialty Start Date End Date Palak Kidd PA [address] [place] [address] PCP - General Family Medicine 01/15/22 [employer] Adjuster Relationship Specialty Start Date End Date Palak Kidd PA [address] [place] [address] PCP - General Family Medicine 01/15/22 [employer] Adjuster Relationship Specialty Start Date End Date Palak Kidd PA [address] [place] [address] PCP - General Family Medicine 01/15/22 [employer] Adjuster Relationship Specialty Start Date End Date Palak Kidd PA [address] [place] [address] PCP - General Family Medicine 01/15/22 [employer] Adjuster Relationship Specialty Start Date End Date Palak Kidd PA [address] [place] [address] PCP - General Family Medicine 01/15/22 Team Status: Active Member Role Status Dates Dr. Eligio Contreras MD Primary Care Provider Active Team Status: Inactive Member Role Status Dates Dr. Eligio Contreras MD Primary Care Provider Active Start: August 31, 2024 End: September 02, 2024 Dr. Jayden Sanchez , Emergency Provider Active Start: August 31, 2024 End: September 02, 2024 Dr. An Cassidy , DO Admit Provider Active Start: August 31, 2024 End: September 02, 2024 Dr. An Cassidy , DO Other Provider Active Start: August 31, 2024 End: September 02, 2024 Dr. Merary Wong , Attending Provider Active S tart: August 31, 2024 End: September 02, 2024 Dr. Merary Wong , Other Provider Active Start : August 31, 2024 End: September 02, 2024 Team Status: Active Member Role Status Dates Dr. Eligio Contreras MD Primary Care Provider Active Start: September 01, 2024 Dr. Jayden Sanchez DO Emergency Provider Active Start: September 01, 2024 Dr. An Cassidy , Admit Provider Active Start: September 01, 2024 Dr. An Cassidy , Other Provider Active Start: September 01, 2024 Dr. Merary Wong , Attending Provider Active S tart: September 01, 2024 Dr. Merary Wong , Other Provider Active Start : September 01, 2024 Team Status: Active Member Role Status Dates Dr. Eligio Contreras MD Primary Care Provider Active Start: September 02, 2024 Dr. Jayden Sanchez DO Emergency Provider Active Start: September 02, 2024 Dr. An Cassidy , DO Admit Provider Active Start: September 02, 2024 Dr. An Cassidy , DO Other Provider Active Start: September 02, 2024 Dr. Merary Wong , DO Attending Provider Active S tart: September 02, 2024 Dr. Merary Wong , DO Other Provider Active Start : September 02, 2024 Team Status: Active Member Role/Relationship Status Dates Dr. Eligio Contreras MD Primary Care Provider Active Team Status: Inactive Member Role/Relationship Status Dates Dr. Eligio Contreras MD Primary Care Provider Active Start: August 31, 2024 End: September 02, 2024 Dr. Jayden Sanchez DO Emergency Provider Active Start: August 31, 2024 End: September 02, 2024 Dr. An Cassidy , DO Admit Provider Active Start: August 31, 2024 End: September 02, 2024 Dr. An Cassidy , Other Provider Active Start: August 31, 2024 End: September 02, 2024 Dr. Merary Wong , DO Attending Provider Active S tart: August 31, 2024 End: September 02, 2024 Dr. Merary Wong , Other Provider Active Start : August 31, 2024 End: September 02, 2024 Team Status: Active Member Role/Relationship Status Dates Dr. Eligio Contreras MD Primary Care Provider Active Start: September 01, 2024 Dr. Jayden Sanchez DO Emergency Provider Active Start: September 01, 2024 Dr. An Cassidy DO Admit Provider Active Start: September 01, 2024 Dr. An Cassidy DO Other Provider Active Start: September 01, 2024 Dr. Merary Wong , Attending Provider Active S tart: September 01, 2024 Dr. Merary Wong , Other Provider Active Start : September 01, 2024 Team Status: Active Member Role/Relationship Status Dates Dr. Eligio Contreras MD Primary Care Provider Active Start: September 02, 2024 Dr. Jayden Sanchez DO Emergency Provider Active Start: September 02, 2024 Dr. An Cassidy DO Admit Provider Active Start: September 02, 2024 Dr. An Cassidy DO Other Provider Active Start: September 02, 2024 Dr. Merary Wong DO Attending Provider Active S tart: September 02, 2024 Dr. Merary Wong , DO Other Provider Active Start : September 02, 2024 Team Status: Inactive Member Role/Relationship Status Dates Dr. Eligio Contreras MD Primary Care Provider Active Start: December 26, 2024 End: December 27, 2024 Dr. Caio Wolff DO Emergency Provider Active Start : December 26, 2024 End: December 27, 2024 FOR RECORDS PERTAINING TO PATIENTS WHO [...] BE BASED ON THE PRIMARY CLINICAL RECORDS. [facility] [employer] provides no warranty or guarantee of the accuracy or completeness of information in this document.
--- NOTE | 2025-04-01 22:25 | ED.RN ---
Report called to [facility].
[2025-04-01 23:00] VITALS: BP 94/62; PULSE 55; RESP 15
== END 2025-04-01 23:53 | disposition home or self-care (01) ==
LOC: ED 22:21
PROVIDERS: Emergency Provider Emergency Medicine; PCP Family Medicine; Visit Provider Emergency Medicine
DX: I95.9 Hypotension, unspecified (principal); I69.351 Hemiplegia and hemiparesis following cerebral infarction affecting right dominant side; I48.20 Chronic atrial fibrillation, unspecified; E11.9 Type 2 diabetes mellitus without complications; R50.9 Fever, unspecified; I10 Essential (primary) hypertension; E78.5 Hyperlipidemia, unspecified; F17.290 Nicotine dependence, other tobacco product, uncomplicated; Z66 Do not resuscitate; Z79.01 Long term (current) use of anticoagulants; Z79.02 Long term (current) use of antithrombotics/antiplatelets; Z79.899 Other long term (current) drug therapy
CPT/HCPCS: 93005; 99285; A4216